=== PATIENT | female | born 1940 | race Caucasian/White ===

== ENCOUNTER 2016-05-28 10:39 | Inpatient (IN) | payer OTHER ==
[~2016-05-28] VITALS: Ht 167.6 cm; Wt 97.6 kg
[~2016-05-28 10:39] MED LIST: ALBU1AER9 INH; FERR325T51 PO; FRS/40 PO; INSUINJ14 SC; INSUINJ4 SQ; SPIR50TA3 PO; TRAV0.00 OPB
[2016-05-28 11:27] LABS: BASO % 0.1 %; BASO ABS # 0.02 K/uL (0-0.2); COMPLETE YES; EOS % 0.4 %; HEMATOCRIT 34.3 % (37-47); IG% 0.2 %; LYMPH % 8.1 %; LYMPH ABS # 1.37 K/uL (1.2-3.4); MEAN CELL VOLUME 90.5 fL (80-100); MEAN CORPUSCULAR HEMOGLOBIN 29.6 pg (25-34); MEAN CORPUSCULAR HGB CONC 32.7 g/dl (32-36); MEAN PLATELET VOLUME 9.2 fL (7.4-10.4); NEUT % 81.2 %; PLATELET COUNT 445 K/uL (130-400); RED BLOOD COUNT 3.79 M/uL (4.2-5.4); WHITE BLOOD COUNT 16.92 K/uL (4.8-10.8)
[2016-05-28 11:36] LABS: BUN/CREATININE RATIO 14.5 (10-20); CALCIUM 8.9 mg/dl (8.5-10.1); CREATININE 1.2 mg/dl (0.60-1.20); POTASSIUM 3.8 mmol/L (3.5-5.1)
[2016-05-28 11:37] LABS: PROTHROMBIN TIME (PATIENT) 10.7 SECONDS (9.0-12.0)
[2016-05-28] MEDS ORDERED: NVLG SQ (11:39)
[2016-05-28] MEDS ORDERED: ALBU18002 INH (11:39)
[2016-05-28] MEDS ORDERED: FURO80TA63 PO (11:39)
[2016-05-28 11:41] LABS: ALB/GLOB RATIO 0.6 (0.9-2); CKMB/CK RATIO 3.3 (0-3.0)
--- NOTE | 2016-05-28 11:43 | DIAGNOSTIC IMAGING REPORT ---
CHEST ONE VIEW PORTABLE CLINICAL HISTORY: EVALUATE RESPIRATORY DISTRESS. DYSPNEA COMPARISON STUDY: 12/19/2014 FINDINGS: Congestive heart failure. Left pleural effusion. Right hemidiaphragm is smooth. IMPRESSION: Congestive heart failure. Left pleural effusion. Electronically signed by: Steve Caicedo M.D. 05/28/2016 11:42 AM Dictated Date/Time: 05/28/2016 11:42 AM
[2016-05-28] MEDS ORDERED: METHYLPREDNISOLONE 125 MG VIAL IV STA (11:49)
[2016-05-28] MEDS ORDERED: ALBUT/IPRATROP 3MG/0.5MG NEB 3 ML VIAL INH STA (11:49)
[2016-05-28] MEDS ORDERED: LEVAQUIN 750MG / 150ML D5W IV STA (12:45)
[2016-05-28] MEDS ORDERED: PIPERACILLIN/TAZOBACTAM 4.5 GM/100ML D5W IV STA (12:45)
[2016-05-28] MEDS ORDERED: SODIUM CHLORIDE 0.9% 1000ML 1,000 ML IV STA (12:45)
[2016-05-28] MEDS ORDERED: SODIUM CHLORIDE 0.9% 500ML 500 ML IV STA (12:45)
[2016-05-28] MEDS ORDERED: ACETAMINOPHEN 325 MG TAB PO PRN (14:00)
[2016-05-28] MEDS ORDERED: ONDANSETRON INJ 2 MG/ML 2 ML VIAL IV PRN (14:00)
[2016-05-28] MEDS ORDERED: LACT10SO30 PO (14:08)
[2016-05-28] MEDS ORDERED: FRRS300 PO (14:08)
[2016-05-28] MEDS ORDERED: OPTIRAY 320 IV PRN (14:15)
[2016-05-28] MEDS ORDERED: PRED10TA PO (14:17)
[2016-05-28] MEDS ORDERED: GLUCOSE 40% GEL 15 GM TUBE PO PRN (14:30)
[2016-05-28] MEDS ORDERED: LACTULOSE SYRUP 20 GM/30 ML UDC PO SCH (14:30)
[2016-05-28] MEDS ORDERED: DEXTROSE 50% 50 ML SYR IV PRN (14:30)
[2016-05-28] MEDS ORDERED: GLUCAGON FOR INJ 1 MG VIAL SQ PRN (14:30)
[2016-05-28] MEDS ORDERED: GLUCOSE 10 TABS/TUBE PO PRN (14:30)
[2016-05-28 15:27] LABS: URINE APPEARANCE CLEAR (CLEAR); URINE BILIRUBIN NEG (NEG); URINE COLOR DK YELLOW; URINE EPITHELIAL CELL AUTO >30 /lpf (0-5); URINE NITRITE NEG (NEG); URINE PH 5.5 (4.5-7.5); URINE SPECIFIC GRAVITY 1.019 (1.000-1.030); UROBILINOGEN NEG (NEG)
[2016-05-28 15:29] LABS: MANUAL MICROSCOPIC REQUIRED? NO; REVIEW REQ? YES
[2016-05-28] MEDS ORDERED: LACTULOSE 30 GM PO SCH ×2 (15:30)
[2016-05-28] MEDS ORDERED: RASPBERRY PO SCH ×2 (15:30)
--- NOTE | 2016-05-28 15:34 | History and Physical ---
History & Physical Date & Time of Service: May 28, 2016 at 14:57 Chief Complaint: Shortness of Breath Primary Care Physician: Yann Gutierrez D.O. History of Present Illness 75 year old female who presents to the ER with shortness of breath. Patient reports her symptoms have been going on for the past 1 1/2 months however have gotten acutely worse over the past 1-2 weeks. Patient was seen by her PCP [address] was place on prednisone. She reports no improvement in her symptoms. She was seen in the clinic today and sent to the ER for further evaluation. Patient reports she initially was only short of breath with exertion however eventually became short of breath at rest and had difficulty speaking. She notes increasing abdominal distention and lower extremity edema. She stopped taking her Lasix 2 weeks ago because she was too short of breath to get to the bathroom. Patient also notes constipation. She is to take Lactulose for GRAHAM however reports she has not taken it in a while because she does not like the taste. She has been taking Dulcolax and miralax however it has not helped. She notes diarrhea the past two days. She denies BRPBR or dark tarry stools. She reports mild nausea but denies abdominal pain and vomiting. Patient and her note mild confusion over the past couple of weeks. No episodes of chest pain. She denies lightheadedness, dizziness, diaphoresis, or syncopal events. No fever or chills. She denies any urinary symptoms. In the ER, patient was hypoxic on room air at 74%. CXR is showing CHF and left pleural effusion. WBC 16K, lactic acid 2.4. She was given Zosyn, Levaquin, solumedrol, neb, and IVF. Past Medical/Surgical History Medical Problems: (1) Bladder cancer Status: Chronic (2) Cirrhosis of liver Permanent Comment: NAFLD Status: Chronic (3) CKD (chronic kidney disease), stage III Status: Chronic (4) COPD (chronic obstructive pulmonary disease) Status: Resolved (5) Depression Status: Chronic (6) Diabetes mellitus type 2 Status: Chronic (7) Diastolic CHF Status: Chronic (8) Dyslipidemia Status: Chronic (9) GERD (gastroesophageal reflux disease) Status: Chronic (10) GI bleed Status: Resolved (11) History of adenomatous polyp of colon Status: Chronic (12) History of bladder cancer Status: Chronic (13) History of endometrial cancer Status: Chronic (14) Hypothyroidism Status: Chronic (15) Iron deficiency anemia Status: Chronic (16) NSTEMI (non-ST elevated myocardial infarction) Permanent Comment: in the setting of acute illness, no EKG or echo findings of ACS Status: Chronic (17) Paroxysmal a-fib Status: Chronic (18) Portal hypertension Permanent Comment: esophageal varices Status: Chronic (19) Portal vein thrombosis Status: Chronic Surgical Problems: (1) Status post excision bladder tumor Permanent Comment: 2012 Status: Chronic (2) Status post hysterectomy Permanent Comment: endometrial carcinoma Status: Chronic Family History FH: ovarian cancer MOTHER Social History Smoking Status: Former Smoker Alcohol Use: none Marital Status: Immunizations History of Influenza Vaccine: Yes Influenza Vaccine Date: Feb 09, 2016 History of Tetanus Vaccine?: Yes Tetanus Immunization Date: August 31, 2006 History of Pneumococcal: Yes Pneumococcal Date: Feb 24, 2016 History of Hepatitis B Vaccine: Yes Hepatitis Immunization Date: Mar 30, 2008 Multi-Drug Resistant Organisms History of MDRO: No Allergies Coded Allergies: Iron Dextran (Verified Allergy, Severe, IRON INFUSIONS - COULDN'T BREATH - THROAT CLOSING, 05/28/16) Dobutamine (Verified Allergy, Intermediate, DIFFICULTY SWALLOWING, 05/28/16 ) Home Medications Scheduled Aspirin (Aspirin EC Low Dose), 81 MG PO 3XWK Atorvastatin (Lipitor), 80 MG PO QPM Furosemide (Lasix), 80 MG PO DAILY Insulin Aspart (Novolog), 30 UNITS SQ AC Insulin Glargine (Lantus), 45 UNITS SC BID Levothyroxine Sodium (Levothyroxine Sodium), 1 TAB PO QAM Metoprolol Succ (Toprol Xl) (Toprol-Xl), 25 MG PO BID Prednisone Tab (Prednisone), 20 MG PO UD Rifaximin (Xifaxan), 550 MG PO BID Spironolactone (Aldactone), 50 MG PO QAM Travoprost (Travatan Z), 1 DROPS OPB HS Venlafaxine Hcl (Effexor), 100 MG PO QAM Scheduled PRN Albuterol Sulfate (Proair Respiclick), 1-2 PUFFS INH Q4 PRN for Shortness of Breath Review of Systems 10 point review of systems was completed with the pertinent positives and negatives noted per the HPI Physical Exam Vital Signs Date Time Temp Pulse Resp B/P Pulse Ox O2 Delivery O2 Flow Rate FiO2 05/28/16 14:09 78 20 100 05/28/16 13:39 78 16 100 05/28/16 13:09 80 25 100 05/28/16 12:39 83 17 99 05/28/16 12:09 77 19 99 05/28/16 12:00 74 20 184/68 100 4.0 05/28/16 11:39 82 19 100 05/28/16 11:13 74 Room Air 05/28/16 11:13 74 Room Air 05/28/16 11:13 96 Nasal Cannula 4.0 05/28/16 11:11 80 05/28/16 11:09 82 26 100 05/28/16 10:52 184/68 05/28/16 10:43 36.3 84 16 154/78 93 Room Air General Appearance: + mild distress (mild conversational dyspnea noted) Head: normocephalic Eyes: normal inspection ENT: hearing grossly normal Neck: supple, no JVD Respiratory/Chest: + decreased breath sounds, + pertinent finding (mild conversational dyspnea) Cardiovascular: regular rate, rhythm, + pertinent finding (+1 pitting edema BLLE) Abdomen/GI: normal bowel sounds, non tender, + distended (firm) Extremities/Musculoskelatal: normal inspection, no calf tenderness Neurologic/Psych: no motor/sensory deficits, alert, normal mood/affect, oriented x 3 Skin: + pertinent finding (chronic venous changes and redness to BLLE) Diagnostics Laboratory Results Results Past 24 Hours Test 05/28/16 11:00 05/28/16 11:10 05/28/16 11:25 05/28/16 12:10 Range/Units White Blood Count 16.92 4.8-10.8 K/uL Red Blood Count 3.79 4.2-5.4 M/uL Hemoglobin 11.2 12.0-16.0 g/dL Hematocrit 34.3 37-47 % Mean Corpuscular Volume 90.5 80-100 fL Mean Corpuscular Hemoglobin 29.6 25-34 pg Mean Corpuscular Hemoglobin Concent 32.7 32-36 g/dl Platelet Count 445 130-400 K/uL Mean Platelet Volume 9.2 7.4-10.4 fL Neutrophils (%) (Auto) 81.2 % Lymphocytes (%) (Auto) 8.1 % Monocytes (%) (Auto) 10.0 % Eosinophils (%) (Auto) 0.4 % Basophils (%) (Auto) 0.1 % Neutrophils # (Auto) 13.73 1.4-6.5 K/uL Lymphocytes # (Auto) 1.37 1.2-3.4 K/uL Monocytes # (Auto) 1.70 0.11-0.59 K/uL Eosinophils # (Auto) 0.07 0-0.5 K/uL Basophils # (Auto) 0.02 0-0.2 K/uL RDW Standard Deviation 50.0 36.4-46.3 fL RDW Coefficient of Variation 15.0 11.5-14.5 % Immature Granulocyte % (Auto) 0.2 % Immature Granulocyte # (Auto) 0.03 0.00-0.02 K/uL Prothrombin Time 10.7 9.0-12.0 SECONDS Prothromb Time International Ratio 1.0 0.9-1.1 Activated Partial Thromboplast Time 26.6 21.0-31.0 SECONDS Partial Thromboplastin Ratio 1.0 Sodium Level 143 136-145 mmol/L Potassium Level 3.8 3.5-5.1 mmol/L Chloride Level 106 98-107 mmol/L Carbon Dioxide Level 26 21-32 mmol/L Anion Gap 11.0 3-11 mmol/L Blood Urea Nitrogen 17 7-18 mg/dl Creatinine 1.20 0.60-1.20 mg/dl Est Creatinine Clear Calc Drug Dose 51.1 ml/min Estimated GFR () 51.9 Estimated GFR (Non- 44.8 BUN/Creatinine Ratio 14.5 10-20 Random Glucose 169 70-99 mg/dl Calcium Level 8.9 8.5-10.1 mg/dl Total Bilirubin 0.7 0.2-1 mg/dl Aspartate Amino Transf (AST/SGOT) 29 15-37 U/L Alanine Aminotransferase (ALT/SGPT) 36 12-78 U/L Alkaline Phosphatase 173 45-117 U/L Total Creatine Kinase 172 26-192 U/L Creatine Kinase MB 5.6 0.5-3.6 ng/ml Creatine Kinase MB Ratio 3.3 0-3.0 Troponin I 0.037 0-0.045 ng/ml Pro-B-Type Natriuretic Peptide 314 0-900 pg/ml Total Protein 7.7 6.4-8.2 gm/dl Albumin 3.0 3.4-5.0 gm/dl Globulin 4.7 2.5-4.0 gm/dl Albumin/Globulin Ratio 0.6 0.9-2 Lactic Acid Level 2.4 0.4-2.0 mmol/L Influenza Type A Antigen Neg for Influ A NEG Influenza Type B Antigen Neg for Influ B NEG Ammonia 37.0 11-32 umol/L Test 05/28/16 14:04 Range/Units Microbiology Results 05/28/16 Blood Culture, Received Pending 05/28/16 Blood Culture, Received Pending Diagnostic Radiology CXR IMPRESSION: Congestive heart failure. Left pleural effusion. Impression Assessment and Plan ACUTE HYPOXIC RESPIRATORY FAILURE DUE TO VOLUME OVERLOAD IN THE SETTING OF GRAHAM / DIASTOLIC CHF / MILD COPD EXACERBATION - admit to tele - patient presenting with increasing shortness of breath x 1 1/2 months; 74% on room air in ED, currently on 4L - CXR showing CHF and left pleural effusion - patient has history of left pleural effusion s/p thoracentesis several years ago - was felt to be reactionary from GRAHAM - also noted patient self stopped her Lasix 2 weeks ago - check ABG - echo 02/2014 - EF > 70%, no mention of diastolic dysfunction - will update echo - WBC 16K, lactic acid 2.4 - leukocytosis likely due to recent steroid use, lactic acidemia likely due to hypoxia; no signs of pneumonia on CXR - will get CT chest to evaluate further and r/o PE, may need US to quantify effusion; s/p Levaquin and Zosyn in ED, will hold on further antibiotics at this time; recheck lactic acid - will start Lasix 40mg IV BID, continue home dose Spironolactone - daily weights, I/O, low Na+ diet - check CT abd due to distention and evaluate for ascites - EGD 04/2015 - grade I varices, mild portal gastropathy - started on steroid taper by PCP - may have mild COPD exacerbation; for now, will continue PO steroids and start nebs MILD HEPATIC ENCEPHALOPATHY - has had mild confusion for the past couple of weeks, ammonia level noted to be 34 - patient reports self stopping her Lactulose - will resume at 30gm BID - GI consult DIARRHEA - ? overflow diarrhea from constipation - check stool studies - further recommendations after CT abd DM - hgb a1c 9.9 02/2016 - continue Novolog/Lantus PAROXYSMAL AFIB - currently in NSR - rate controlled on beta moises, will continue - not anticoagulated due to anemia/GI bleeding DVT PROPHYLAXIS - SCDs due to hx varices, anemia, GI bleeding CODE STATUS - Patient is a full code as per my discussion with her. DISPO - In my clinical judgment this beneficiary meets acute admission criteria, established by [facility], that includes being hospitalized through two midnights. Agree with above h and p.75f presents with worsening sob since about a month. Has some cough. Philipp fevers. Recently started on steroids by pcp for copd flare.Stopped Lasix as patient says she doesn't wanted to go to bathroom frequently. Stopped lactulose as it doesn't taste good.Was hypoxic on room air. Currently saturating fine on nasal canula. p/e Ge not in distress obese Rs cta b/l no wheezing mid bibasilar crackles Abd soft bs sluggish distended non tender [employer] non focal Ext pedal edema +2 a/p SOB Acute resp failure volume overload from Cirrhosis and not taking Lasix Pleural effusion Acute diastolic chf CT chest no PE chest US 15ooml on left side Ct abd/pelvis-moderate ascites empiric Rocephin follow for SBP on paracentesis GI consulted pulmonary consult for pleural effusion started on iv lasix home Aldactone follow labs Elevated lactic acid mostly from hypoxia will f/u elevated ammonia on rifaximin not taking lactulose as it doesn't taste good pharmacy mixing lactulose in raspberry juice VTE Prophylaxis VTE Risk Assessment Done? Y/N: Yes Risk Level: Moderate
--- NOTE | 2016-05-28 15:37 | DIAGNOSTIC IMAGING REPORT ---
CHEST CTA for PULMONARY ARTERIES CT DOSE: 2150.41 mGy.cm HISTORY: Chest pain dyspnea TECHNIQUE: Transaxial acquisition with multi axial reformatted images COMPARISON STUDY: 2011 FINDINGS: Relatively large left pleural effusion. Left lower lobe atelectasis. Mild cardiomegaly. Underlying component potentially mild congestive failure. No evidence of pulmonary embolus. IMPRESSION: 1. No evidence for pulmonary embolus. 2. Left pleural effusion with left lower lobe atelectasis. 3. Underlying mild congestive failure. 4. Several indeterminate mediastinal and/or hilar nodes measuring to 11 mm Electronically signed by: Steve Caicedo M.D. 05/28/2016 3:36 PM Dictated Date/Time: 05/28/2016 3:32 PM
[2016-05-28 15:38] VITALS: BP 145/79; PULSE 87; TEMP 36.3; O2SAT 94
[2016-05-28 15:41] LABS: URINE PATH CASTS 0-3 GRANULAR CASTS /lpf (0)
--- NOTE | 2016-05-28 15:43 | DIAGNOSTIC IMAGING REPORT ---
ABDOMEN AND PELVIS CT WITH IV CONTRAST CT DOSE: HISTORY: Pain abdominal distention TECHNIQUE: Multiaxial CT images of the abdomen and pelvis were performed following the use of intravenous contrast. COMPARISON STUDY: 12/20/2014 FINDINGS: Mild body wall anasarca. Hepatic cirrhosis. Several small hepatic cysts unchanged from the prior exam. Several gallstones in the region of the gallbladder neck also unchanged. Several splenic infarcts as well as splenic cortical scarring are present. This is similar compared to the prior study. Mild abdominal ascites. Nonobstructive bowel pattern. Several reactive mesenteric nodes. Moderate periaortic adenopathy slightly progressive from the prior exam. These measure to 1.4 cm. Bowel pattern overall is nonobstructive. Moderate low pelvic ascites. Rodas catheter within a collapsed bladder. No evidence for colonic distention. IMPRESSION: 1. Hepatic cirrhosis. 2. Cortical scarring and lobulation of the spleen similar to the prior study. 3. Mild/moderate abdominal as well as pelvic ascites. 4. Mild body wall anasarca. 5. Mild periaortic and mesenteric adenopathy somewhat progressive from the prior study. Electronically signed by: Steve Caicedo M.D. 05/28/2016 3:42 PM Dictated Date/Time: 05/28/2016 3:38 PM
[2016-05-28 16:00] VITALS: BP 145/79; PULSE 87; TEMP 36.3; O2SAT 94; BMI 37.4
[2016-05-28] MEDS ORDERED: ALBUT/IPRATROP 3MG/0.5MG NEB 3 ML VIAL INH PRN (16:15)
[2016-05-28] MEDS ORDERED: PHARMACY GLYCEMIC MGMT CONSULT SCH (16:19)
[2016-05-28 16:22] LABS: ARTERIAL BLD GAS O2 SATURATION 96.8 % (90-95); ARTERIAL BLOOD GAS BASE EXCESS -1.5 mEq/L (-9-1.8); ARTERIAL BLOOD GAS HCO3 25 mmol/L (19-24); ARTERIAL BLOOD GAS PO2 104 mm/Hg (80-95); ARTERIAL BLOOD GAS pH 7.31 (7.35-7.45)
[2016-05-28 16:25] LABS: ALLEN TEST POS (POS); O2 ADMINISTRATION 4L
--- NOTE | 2016-05-28 17:43 | DIAGNOSTIC IMAGING REPORT ---
Chest ultrasound EFFUSION-CHEST/MEDIASTINUM CLINICAL HISTORY: left pleural effusion TECHNIQUE: Real-time ultrasound COMPARISON STUDY: CT study same date FINDINGS: Small right effusion. Estimated volume 55 cc. Left effusion estimated at 1500 cc. This was marked IMPRESSION: Left pleural effusion estimated at 1500 cc. This was marked for potential later thoracentesis. Small right effusion Electronically signed by: Steve Caicedo M.D. 05/28/2016 5:41 PM Dictated Date/Time: 05/28/2016 5:40 PM
--- NOTE | 2016-05-28 17:44 | DIAGNOSTIC IMAGING REPORT ---
Limited abdominal ultrasound ASCITES-ABDOMEN LIMITED CLINICAL HISTORY: ascites ascites TECHNIQUE: Real-time ultrasound COMPARISON STUDY: CT same date FINDINGS: Mild/moderate ascites within the abdomen as well as pelvis. IMPRESSION: Mild ascites Electronically signed by: Steve Caicedo M.D. 05/28/2016 5:43 PM Dictated Date/Time: 05/28/2016 5:42 PM
[2016-05-28] MEDS: INSULIN ASPART 100 UNITS/ML 3 ML PEN SC SCH ×2 (17:48→21:47)
[2016-05-28] MEDS: CEFTRIAXONE SOD INJ 2,000 MG in DEXTROSE 5% 50ML 50 ML IV SCH (17:50)
[2016-05-28] MEDS: FUROSEMIDE INJ 40 MG in SYRINGE 0 ML IV SCH ×2 (17:50→23:18)
[2016-05-28] MEDS: LACTULOSE 20 GM PO SCH ×4 (17:51→21:44)
[2016-05-28] MEDS: [UNRECOGNIZED DRUG - OTHER] PO SCH ×4 (17:51→21:44)
[2016-05-28 19:51] VITALS: BP 154/69; PULSE 88; TEMP 36.5; O2SAT 98
--- NOTE | 2016-05-28 20:02 | EMERGENCY ROOM VISIT NOTE ---
History Report prepared by Alexandriaibricha: Janette Monahan Under the Supervision of: Dr. Alan Hou M.D. First contact with patient: 11:10 Chief Complaint: SHORTNESS OF BREATH Stated Complaint: SOB Nursing Triage Summary: Patient present with a several day history of increasing SOB, with3 lb weight gain over the weekend. CXR on Sunday showed pleural effusion. Lungs diminshed in all lung willis. negative chest p ain, cough, fever, chills. patient awake and oriented. hypoxic on room air and anxious with 74 room air saturation. Patient reports relief with oxygen and saturations incresed to 96% on 4 lpm via NC. Patient also reports high ammonia level with a recent blood draw. History of Present Illness The patient is a 75 year old female who presents to the Emergency Room with complaints of worsening shortness of breath for the past few days. She saw her PCP, Dr. Gutierrez with [facility], 3 days ago, and had a chest X-Ray and lab work. The X-Ray showed pleural effusion and her Ammonia was found to be elevated , so Dr. Gutierrez's office called her this morning and referred her to the ED. Her O2 was 74% on room air on arrival to the ED. Oxygen has provided relief and she is up to 96% on 4 liters. The patient admits to a history of COPD and notes her Albuterol Nebulizer usually provides good relief, but since the beginning of April, she has experienced a cough and shortness of breath that seem to be worsening. She also admits to a recent 3 pound weight gain and some diarrhea over the past few days. The patient denies LOC, headache, fevers, chills, diaphoresis, visual changes, neck pain, chest pain, nausea, vomiting, abdominal pain, back pain, melena, hematochezia, urinary symptoms, numbness, weakness, lymphadenopathy, rash, or other complaints. Source of History: patient Onset: past few days [employer] Position: chest Timing: worsening Modifying Factors (Relieving): oxygen Associated Symptoms: + diarrhea Review of Systems See HPI for pertinent positives and negatives. A total of ten systems were reviewed and were otherwise negative. Past Medical & Surgical Medical Problems: (1) Bladder cancer (2) Cirrhosis of liver (3) CKD (chronic kidney disease), stage III (4) COPD (chronic obstructive pulmonary disease) (5) Depression (6) Diabetes mellitus type 2 (7) Diastolic CHF (8) Dyslipidemia (9) GERD (gastroesophageal reflux disease) (10) GI bleed (11) History of adenomatous polyp of colon (12) History of bladder cancer (13) History of endometrial cancer (14) Hypothyroidism (15) Iron deficiency anemia (16) NSTEMI (non-ST elevated myocardial infarction) (17) Paroxysmal a-fib (18) Portal hypertension (19) Portal vein thrombosis Surgical Problems: (1) Status post excision bladder tumor (2) Status post hysterectomy Family History Cancer Social History Smoking Status: Former Smoker Alcohol Use: none Drug Use: none Marital Status: Housing Status: lives with family Occupation Status: retired Current/Historical Medications Scheduled Aspirin (Aspirin EC Low Dose), 81 MG PO 3XWK Atorvastatin (Lipitor), 80 MG PO QPM Furosemide (Lasix), 80 MG PO DAILY Insulin Aspart (Novolog), 30 UNITS SQ AC Insulin Glargine (Lantus), 45 UNITS SC BID Levothyroxine Sodium (Levothyroxine Sodium), 1 TAB PO QAM Metoprolol Succ (Toprol Xl) (Toprol-Xl), 25 MG PO BID Prednisone Tab (Prednisone), 20 MG PO UD Rifaximin (Xifaxan), 550 MG PO BID Spironolactone (Aldactone), 50 MG PO QAM Travoprost (Travatan Z), 1 DROPS OPB HS Venlafaxine Hcl (Effexor), 100 MG PO QAM Scheduled PRN Albuterol Sulfate (Proair Respiclick), 1-2 PUFFS INH Q4 PRN for Shortness of Breath Allergies Coded Allergies: Iron Dextran (Verified Allergy, Severe, IRON INFUSIONS - COULDN'T BREATH - THROAT CLOSING, 05/28/16) Dobutamine (Verified Allergy, Intermediate, DIFFICULTY SWALLOWING, 05/28/16 ) Physical Exam Vital Signs Date Time Temp Pulse Resp B/P Pulse Ox O2 Delivery O2 Flow Rate FiO2 05/28/16 13:39 78 16 100 05/28/16 13:09 80 25 100 05/28/16 12:39 83 17 99 05/28/16 12:09 77 19 99 05/28/16 12:00 74 20 184/68 100 4.0 05/28/16 11:39 82 19 100 05/28/16 11:13 74 Room Air 2/19/17 11:13 74 Room Air 05/28/16 11:13 96 Nasal Cannula 4.0 05/28/16 11:11 80 05/28/16 11:09 82 26 100 05/28/16 10:52 184/68 05/28/16 10:43 36.3 84 16 154/78 93 Room Air Physical Exam GENERAL: Awake, alert, well-appearing, in no distress HENT: Normocephalic, atraumatic. Oropharynx unremarkable. EYES: Normal conjunctiva. Sclera non-icteric. NECK: Supple. No nuchal rigidity. FROM. No JVD. RESPIRATORY: Clear to auscultation. CARDIAC: Regular rate, normal rhythm. Extremities warm and well perfused. Pulses equal. ABDOMEN: Soft, non-distended. No tenderness to palpation. No rebound or guarding. No masses. RECTAL: Deferred. MUSCULOSKELETAL: Chest examination reveals no tenderness. The back is symmetrical on inspection without obvious abnormality. There is no CVA tenderness to palpation. No joint edema. LOWER EXTREMITIES: Calves are equal size bilaterally and non-tender. +1 edema in lower extremities. Chronic venous discoloration. NEURO: Mildly confused sensorium. No sensory, focal or motor deficits noted. SKIN: No rash or jaundice noted. Medical Decision & Procedures ER Provider Diagnostic Interpretation: This X-Ray was reviewed and interpreted by myself and the radiologist. CHEST ONE VIEW PORTABLE CLINICAL HISTORY: EVALUATE RESPIRATORY DISTRESS. DYSPNEA COMPARISON STUDY: 12/19/2014 FINDINGS: Congestive heart failure. Left pleural effusion. Right hemidiaphragm is smooth. IMPRESSION: Congestive heart failure. Left pleural effusion. Electronically signed by: Steve Caicedo M.D. 05/28/2016 11:42 AM Laboratory Results 05/28/16 11:00 Red Blood Count 3.79, Mean Corpuscular Volume 90.5, Mean Corpuscular Hemoglobin 29.6, Mean Corpuscular Hemoglobin Concent 32.7, Mean Platelet Volume 9.2, Neutrophils (%) (Auto) 81.2, Lymphocytes (%) (Auto) 8.1, Monocytes (%) (Auto) 10.0, Eosinophils (%) (Auto) 0.4, Basophils (%) (Auto) 0.1, Neutrophils # (Auto ) 13.73, Lymphocytes # (Auto) 1.37, Monocytes # (Auto) 1.70, Eosinophils # (Auto ) 0.07, Basophils # (Auto) 0.02 05/28/16 11:00 Test 05/28/16 00:00 05/28/16 11:00 05/28/16 11:25 05/28/16 12:10 Urine Color DK YELLOW Urine Appearance CLEAR (CLEAR) Urine pH 5.5 (4.5-7.5) Urine Specific [place] 1.019 (1.000-1.030) Urine Protein 3+ (NEG) Urine Glucose (UA) NEG (NEG) Urine Ketones NEG (NEG) Urine Occult Blood 2+ (NEG) Urine Nitrite NEG (NEG) Urine Bilirubin NEG (NEG) Urine Urobilinogen NEG (NEG) Urine Leukocyte Esterase NEG (NEG) Urine WBC (Auto) 1-5 /hpf (0-5) Urine RBC (Auto) 5-10 /hpf (0-4) Urine Hyaline Casts (Auto) 1-5 /lpf (0-5) Urine Epithelial Cells (Auto) >30 /lpf (0-5) Urine Bacteria (Auto) NEG (NEG) Urine Renal Epithelial Cells /lpf (0-5) Urine Pathogenic Casts 0-3 GRANULAR CASTS /lpf (0) White Blood Count 16.92 K/uL (4.8-10.8) Red Blood Count 3.79 M/uL (4.2-5.4) Hemoglobin 11.2 g/dL (12.0-16.0) Hematocrit 34.3 % (37-47) Mean Corpuscular Volume 90.5 fL (80-100) Mean Corpuscular Hemoglobin 29.6 pg (25-34) Mean Corpuscular Hemoglobin Concent 32.7 g/dl (32-36) Platelet Count 445 K/uL (130-400) Mean Platelet Volume 9.2 fL (7.4-10.4) Neutrophils (%) (Auto) 81.2 % Lymphocytes (%) (Auto) 8.1 % Monocytes (%) (Auto) 10.0 % Eosinophils (%) (Auto) 0.4 % Basophils (%) (Auto) 0.1 % Neutrophils # (Auto) 13.73 K/uL (1.4-6.5) Lymphocytes # (Auto) 1.37 K/uL (1.2-3.4) Monocytes # (Auto) 1.70 K/uL (0.11-0.59) Eosinophils # (Auto) 0.07 K/uL (0-0.5) Basophils # (Auto) 0.02 K/uL (0-0.2) RDW Standard Deviation 50.0 fL (36.4-46.3) RDW Coefficient of Variation 15.0 % (11.5-14.5) Immature Granulocyte % (Auto) 0.2 % Immature Granulocyte # (Auto) 0.03 K/uL (0.00-0.02) Prothrombin Time 10.7 SECONDS (9.0-12.0) Prothromb Time International Ratio 1.0 (0.9-1.1) Activated Partial Thromboplast Time 26.6 SECONDS (21.0-31.0) Partial Thromboplastin Ratio 1.0 Anion Gap 11.0 mmol/L (3-11) Est Creatinine Clear Calc Drug Dose 51.1 ml/min Estimated GFR () 51.9 Estimated GFR (Non- 44.8 BUN/Creatinine Ratio 14.5 (10-20) Calcium Level 8.9 mg/dl (8.5-10.1) Total Bilirubin 0.7 mg/dl (0.2-1) Aspartate Amino Transf (AST/SGOT) 29 U/L (15-37) Alanine Aminotransferase (ALT/SGPT) 36 U/L (12-78) Alkaline Phosphatase 173 U/L (45-117) Total Creatine Kinase 172 U/L (26-192) Pro-B-Type Natriuretic Peptide 314 pg/ml (0-900) Total Protein 7.7 gm/dl (6.4-8.2) Albumin 3.0 gm/dl (3.4-5.0) Globulin 4.7 gm/dl (2.5-4.0) Albumin/Globulin Ratio 0.6 (0.9-2) Influenza Type A Antigen Neg for Influ A (NEG) Influenza Type B Antigen Neg for Influ B (NEG) Ammonia 37.0 umol/L (11-32) Laboratory results reviewed by me Medications Administered Medications (Trade) Dose Ordered Sig/Virgil Route Start Time Stop Time Status Last Admin Dose Admin Albuterol/ Ipratropium (Duoneb) 3 ml NOW STAT INH 05/28/16 11:49 05/28/16 11:51 DC 05/28/16 12:05 3 ML Methylprednisolone Sodium Succinate (Solu-Medrol IV) 125 mg NOW STAT IV 05/28/16 11:49 05/28/16 11:51 DC 05/28/16 12:05 125 MG Levofloxacin (Levaquin / D5W) 750 mg NOW STAT IV 05/28/16 12:45 05/28/16 12:47 DC 05/28/16 13:43 750 MG Piperacillin Sod/ Tazobactam Sod 4.5 gm 4.5 gm NOW STAT IV 05/28/16 12:45 05/28/16 12:47 DC 05/28/16 13:08 4.5 GM Sodium Chloride (Nss 500ml) 500 ml @ 999 mls/hr Q31M STAT IV 05/28/16 12:45 05/28/16 13:15 DC 05/28/16 13:08 999 MLS/HR ECG Indication: SOB/dyspnea Rate (beats per minute): 85 Rhythm: normal sinus Findings: RBBB, no acute ischemic change, no ectopy ED Course 1148: The patient was evaluated in room C10. A complete history and physical exam was performed. 1149: Solu-Medrol 125 mg IV, DuoNeb 3 ml INH. 1245: NSS 500 ml @ 999 mls/hr IV, NSS 1000 ml @ 125 mls/hr IV, Zosyn 4.5 gm IV, Levaquin 750 mg IV. 1254: I reevaluated the patient. She is resting comfortably. I discussed my plan for her to remain in the hospital for further evaluation and management and she verbalized complete understanding and agreement. 1305: I discussed the patients case with JULIO C Sanabria [facility] Hospitalist. The patient will be further evaluated. Medical Decision Triage Nursing notes reviewed. The patient's presentation and history were concerning for hypoxia, shortness of breath, confusion. Etiologies such as pneumonia, COPD, reactive airway disease, CHF, cardiac ischemia, pulmonary embolism, pneumothorax, musculoskeletal, infections, gastrointestinal, cirrhosis, hyperammonemia, as well as others were entertained. The patient was evaluated. She was feeling better with supplemental oxygen. She was given a DuoNeb. Chest x-ray shows a large pleural effusion and mild CHF. Her CBC revealed a significant leukocytosis and lactic acidosis was also present. Troponin and coags were unremarkable. Ammonia was slightly elevated. Because of the lactic acidosis and elevated white blood cell count the patient was given antibiotics due to concern for possible pneumonia obscured by the effusion. Consultation was made with internal medicine. The patient was evaluated in the Emergency Room for further treatment. The chart was completed utilizing [employer] Speech voice recognition software. Grammatical errors, random word insertions, pronoun errors, and incomplete sentences are an occasional consequence of this system due to software limitations, ambient noise, and hardware issues. Any formal questions or concerns about the content, text, or information contained within the body of this dictation should be directly addressed to the physician for clarification. Consults Time Called: 1304 Consulting Physician: JULIO C Sanabria [facility] Hospitalist Returned Call: 1305 I discussed the patients case [facility] The patient will be further evaluated. Impression Primary Impression: Hypoxia Additional Impressions: Altered mental status Pneumonia SIRS (systemic inflammatory response syndrome) Congestive heart failure Scribe Attestation The scribe's documentation has been prepared under my direction and personally reviewed by me in its entirety. I confirm that the note above accurately reflects all work, treatment, procedures, and medical decision making performed by me. Departure Information Dispostion Being Evaluated By Hospitalist Referrals Yann Gutierrez, D.OMac (PCP) Patient Instructions My [facility] Problem Qualifiers Additional Impressions: Congestive heart failure Congestive heart failure type: unspecified congestive heart failure type Congestive heart failure chronicity: acute Qualified Codes: I50.9 - Heart failure, unspecified
[2016-05-28 20:17] VITALS: PULSE 94; O2SAT 92
[2016-05-28] MEDS: ALBUT/IPRATROP 3MG/0.5MG NEB 3 ML VIAL INH SCH (20:17)
[2016-05-28] MEDS: ATORVASTATIN 40 MG TAB PO SCH (21:43)
[2016-05-28] MEDS: UNIT DOSE COMPOUND PO SCH (21:44)
[2016-05-28] MEDS: TRAVOPROST Z 0.004% OPH SOLN 2.5 ML BTL OPB SCH (21:44)
[2016-05-28] MEDS: RIFAXIMIN TAB 550 MG TAB PO SCH (21:45)
[2016-05-28] MEDS: METOPROLOL SUCC 25MG EXT REL TAB PO SCH (21:45)
[2016-05-28] MEDS: INSULIN GLARGINE SOLOSTAR 100 UNITS/ML 3 ML PEN SC SCH (21:48)
[2016-05-28 23:07] VITALS: BP 125/59; PULSE 94; TEMP 36.6; O2SAT 96
[2016-05-29] VITALS (13 sets, daily range): BP systolic 117–151; BP diastolic 53–69; PULSE 71–118; TEMP 36.3–36.9; O2SAT 93–99
[2016-05-29 06:18] LABS: HEMATOCRIT 31.1 % (37-47); MEAN CELL VOLUME 92.3 fL (80-100); MEAN CORPUSCULAR HEMOGLOBIN 28.8 pg (25-34); MEAN CORPUSCULAR HGB CONC 31.2 g/dl (32-36); MEAN PLATELET VOLUME 9.3 fL (7.4-10.4); PLATELET COUNT 384 K/uL (130-400); RED BLOOD COUNT 3.37 M/uL (4.2-5.4); WHITE BLOOD COUNT 12.42 K/uL (4.8-10.8)
[2016-05-29 07:03] LABS: BUN/CREATININE RATIO 14.8 (10-20); CALCIUM 8.5 mg/dl (8.5-10.1); CREATININE 1.6 mg/dl (0.60-1.20); POTASSIUM 4.2 mmol/L (3.5-5.1)
[2016-05-29] MEDS: ALBUT/IPRATROP 3MG/0.5MG NEB 3 ML VIAL INH SCH ×4 (07:33→20:18)
[2016-05-29] MEDS: RIFAXIMIN TAB 550 MG TAB PO SCH ×2 (08:20→20:44)
[2016-05-29] MEDS: METOPROLOL SUCC 25MG EXT REL TAB PO SCH ×2 (08:21→20:44)
[2016-05-29] MEDS: VENLAFAXINE HCL 50 MG TAB PO SCH (08:27)
[2016-05-29] MEDS: ASPIRIN 81 MG ECTAB PO SCH (08:28)
[2016-05-29] MEDS: LEVOTHYROXINE 112 MCG TAB PO SCH (08:28)
[2016-05-29] MEDS: FUROSEMIDE INJ 40 MG in SYRINGE 0 ML IV SCH ×2 (08:30→20:42)
[2016-05-29] MEDS: INSULIN ASPART 100 UNITS/ML 3 ML PEN SC SCH ×4 (08:52→20:45)
[2016-05-29] MEDS: INSULIN GLARGINE SOLOSTAR 100 UNITS/ML 3 ML PEN SC SCH ×2 (08:53→20:46)
[2016-05-29] MEDS: LACTULOSE 20 GM PO SCH ×4 (09:58→20:43)
[2016-05-29] MEDS: [UNRECOGNIZED DRUG - OTHER] PO SCH ×4 (09:58→20:43)
[2016-05-29] MEDS: UNIT DOSE COMPOUND PO SCH ×2 (09:58→20:43)
--- NOTE | 2016-05-29 10:24 | DIAGNOSTIC IMAGING REPORT ---
ULTRASOUND GUIDED DIAGNOSTIC PARACENTESIS CLINICAL HISTORY: Ascites. COMPARISON STUDY: CT of the abdomen and pelvis and abdominal ultrasound May 28, 2016. PROCEDURE: The risks, benefits, and alternatives to the procedure were discussed with the patient including the risk of bleeding, infection and injury to adjacent structures. The patient agreed to the procedure and informed written consent was obtained. Sonography of the abdomen and pelvis revealed a small amount of ascites. The amount of fluid was insufficient for a therapeutic paracentesis. Following real-time ultrasound localization, the skin of the right lower quadrant was prepped and draped. Following local anesthesia with Xylocaine, a 3.5 inch, 18-gauge spinal needle was directed into the peritoneal cavity. 100 cc of milky, cloudy ascites was aspirated. The fluid was sent to laboratory as ordered. The patient tolerated the procedure well and no immediate complications were evident. IMPRESSION: Ultrasound-guided diagnostic paracentesis with removal of 100 cc of milky, cloudy ascites. 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 The amount of fluid was insufficient for therapeutic paracentesis. Electronically signed by: Rao Mcgrath M.D. 05/29/2016 10:23 AM Dictated Date/Time: 05/29/2016 10:19 AM
[2016-05-29 12:28] LABS: PERIT FL WBC 123 /uL (0-300); PERITONEAL FLUID RBC < 3000 /uL
--- NOTE | 2016-05-29 13:16 | Gastrointestinal Consultation ---
Gastrointestinal Consultation Date of Consultation: May 29, 2016 History of Present Illness Patient is a 75 year old female with past medical history significant for GRAHAM cirrhosis, DMT2, anemia, afib, depression, hypothyroid, GERD, CKDIII, adenomatous polyps, bladder CA, CHF, hypoxia who was admitted for SOB and confusion. GI was consulted for elevated ammonia and confusion. She reports that she does not take her lactulose at home because she does not like the way it makes her feel. She notes that around Werner time she stopped taking this medication completely. She was starting to experience confusion and mental fogginess over the past few weeks, however, did not seek any medical attention for this. She denies any abdominal pain, black/bloody stools, diarrhea, constipation, vomitting. She reports that she has been experiencing worsening SOB. She reports she had a paracentesis this morning, but they were unable to get much fluid off. paracentesis: Ultrasound-guided diagnostic paracentesis with removal of 100 cc of milky, cloudy ascites. 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 The amount of fluid was insufficient for therapeutic paracentesis. Chest xr: Congestive heart failure. Left pleural effusion CT abd: Hepatic cirrhosis. Cortical scarring and lobulation of the spleen similar to the prior study. Mild/moderate abdominal as well as pelvic ascites. Mild body wall anasarca. Mild periaortic and mesenteric adenopathy somewhat progressive from the prior study. Past Medical/Surgical History Medical Problems: (1) Altered mental status Status: Acute (2) Congestive heart failure Status: Acute (3) Hypoxia Status: Acute (4) Pneumonia Status: Acute (5) SIRS (systemic inflammatory response syndrome) Status: Acute Family History FH: ovarian cancer MOTHER Social History Smoking Status: Former Smoker Alcohol Use: none Drug Use: none Marital Status: Housing Status: lives with family Occupation Status: retired Allergies Coded Allergies: Iron Dextran (Verified Allergy, Severe, IRON INFUSIONS - COULDN'T BREATH - THROAT CLOSING, 05/28/16) Dobutamine (Verified Allergy, Intermediate, DIFFICULTY SWALLOWING, 05/28/16 ) Current Medications Home Meds and Scripts Medications Dose Route/Sig Max Daily Dose Days Date Category Dose Instructions Aspirin EC Low Dose (Aspirin) 81 Mg Ectab 81 Mg PO 3XWK 05/28/16 Reported Prednisone 10 Mg Tab 20 Mg PO UD 05/28/16 Reported on taper - 40mg x 2 days, 20 mg x 5 days Lasix (Furosemide) 80 Mg Tab 80 Mg PO DAILY 05/28/16 Reported Proair Respiclick (Albuterol Sulfate) 108 Mcg/Act Aer 1-2 Puffs INH Q4 PRN 05/28/16 Reported Lantus (Insulin Glargine) 100 Unit/Ml Inj 45 Units SC BID 05/28/16 Reported Novolog (Insulin Aspart) 100 Units/Ml Inj 30 Units SQ AC 05/28/16 Reported Travatan Z (Travoprost) 0.004 % Deonte 1 Drops OPB HS 10/27/15 Reported Levothyroxine Sodium 112 Mcg Tab 1 Tab PO QAM 90 10/27/15 Reported Toprol-Xl (Metoprolol Succinate) 25 Mg Tabcr 25 Mg PO BID 10/27/15 Reported Lipitor (Atorvastatin Calcium) 80 Mg Tab 80 Mg PO QPM 10/27/15 Reported Aldactone (Spironolactone) 50 Mg Tab 50 Mg PO QAM 10/27/15 Reported Effexor (Venlafaxine Hcl) 100 Mg Tab 100 Mg PO QAM 10/27/15 Reported Xifaxan (Rifaximin) 550 Mg Tab 550 Mg PO BID 10/27/15 Reported Review of Systems Constitutional: No chills, No fever Respiratory: + shortness of breath Cardiac: No chest pain, No edema Abdomen: No GI bleeding, No constipation, No diarrhea, No nausea, No pain, No vomiting Skin: No itch, No rash Physical Exam Date Time Temp Pulse Resp B/P Pulse Ox O2 Delivery O2 Flow Rate FiO2 05/29/16 11:38 Nasal Cannula 4.0 05/29/16 11:38 36.8 88 20 143/69 98 4.0 05/29/16 11:15 98 18 99 Nasal Cannula 4.0 05/29/16 10:04 96 20 137/63 99 Nasal Cannula 4.0 05/29/16 07:43 36.9 90 18 121/53 97 Room Air 05/29/16 07:33 95 18 96 Nasal Cannula 4.0 05/29/16 07:30 Nasal Cannula 4.0 05/29/16 04:00 Nasal Cannula 4.0 05/29/16 03:45 36.7 93 18 117/54 95 Nasal Cannula 4.0 05/29/16 00:01 Nasal Cannula 4.0 05/28/16 23:07 36.6 94 18 125/59 96 Nasal Cannula 4.0 05/28/16 20:17 94 18 92 Nasal Cannula 4.0 05/28/16 20:00 Nasal Cannula 4.0 05/28/16 19:51 36.5 88 18 154/69 98 Nasal Cannula 4.0 05/28/16 16:00 36.3 87 18 145/79 94 Nasal Cannula 4.0 05/28/16 15:38 36.3 87 18 145/79 94 Nasal Cannula 4.0 05/28/16 15:00 84 20 130/88 98 05/28/16 14:09 78 20 100 05/28/16 13:39 78 16 100 05/28/16 13:09 80 25 100 General Appearance: + mild distress (patient is SOB during conversation) Eyes: PERRL, EOMI ENT: hearing grossly normal Neck: supple, trachea midline Respiratory/Chest: chest non-tender, no accessory muscle use, + respiratory distress (patient is SOB during conversation, stops talking for a few second to catch her breath), + decreased breath sounds Cardiovascular: regular rate, rhythm, no gallop, no JVD, no murmur Abdomen: normal bowel sounds, soft, no organomegaly, no pulsatile mass, + pertinent finding (no ascites on exam) Neurologic/Psych: alert, normal mood/affect, oriented x 3 Skin: normal color, no jaundice, warm/dry, no rash Laboratory Results Last 24 Hours Test 05/28/16 16:00 05/28/16 17:00 05/28/16 20:32 05/28/16 22:00 Arterial Blood pH 7.31 Arterial Blood Partial Pressure CO2 51 mmHg Arterial Blood Partial Pressure O2 104 mm/Hg Arterial Blood HCO3 25 mmol/L Arterial Blood Oxygen Saturation 96.8 % Arterial Blood Base Excess -1.5 mEq/L Arterial Blood Gas Delivery 4L Akin Test POS Lactic Acid Level 1.2 mmol/L Creatine Kinase MB 4.5 ng/ml Creatine Kinase MB Ratio Troponin I 0.041 ng/ml Bedside Glucose 187 mg/dl 288 mg/dl Test 05/28/16 22:03 05/29/16 00:00 05/29/16 05:59 05/29/16 07:34 Creatine Kinase MB 3.7 ng/ml Troponin I 0.037 ng/ml Peritoneal Fluid Color WHITE Peritoneal Fluid Appearance CLOUDY Peritoneal Fluid WBC 123 /uL Peritoneal Fluid RBC < 3000 /uL Peritoneal Fld Mononuclear WBCs (%) 69.2 % Peritoneal Fld Polynuclear WBCs (%) 30.8 % Peritoneal Fluid Total Protein 1.2 g/dl Peritoneal Fluid LDH 46 IU Peritoneal Fluid Glucose mg/dl White Blood Count 12.42 K/uL Red Blood Count 3.37 M/uL Hemoglobin 9.7 g/dL Hematocrit 31.1 % Mean Corpuscular Volume 92.3 fL Mean Corpuscular Hemoglobin 28.8 pg Mean Corpuscular Hemoglobin Concent 31.2 g/dl RDW Standard Deviation 51.5 fL RDW Coefficient of Variation 15.2 % Platelet Count 384 K/uL Mean Platelet Volume 9.3 fL Sodium Level 142 mmol/L Potassium Level 4.2 mmol/L Chloride Level 104 mmol/L Carbon Dioxide Level 27 mmol/L Anion Gap 11.0 mmol/L Blood Urea Nitrogen 24 mg/dl Creatinine 1.60 mg/dl Est Creatinine Clear Calc Drug Dose 38.3 ml/min Estimated GFR () 36.7 Estimated GFR (Non- 31.6 BUN/Creatinine Ratio 14.8 Random Glucose 254 mg/dl Calcium Level 8.5 mg/dl Total Bilirubin 0.4 mg/dl Direct Bilirubin 0.2 mg/dl Aspartate Amino Transf (AST/SGOT) 21 U/L Alanine Aminotransferase (ALT/SGPT) 30 U/L Alkaline Phosphatase 136 U/L Ammonia 54.0 umol/L Total Protein 6.8 gm/dl Albumin 2.6 gm/dl Bedside Glucose 254 mg/dl Test 05/29/16 11:10 Bedside Glucose 320 mg/dl Impression Patient is a 75 year old female with worsening SOB and confusion. At the time of admission, she was not taking her lactulose and her ammonia was elevated to 54. She was taking xifaxan 550 BID. Differentials include hepatic encephalopathy , hypoxia, infection etc. She is not taking lactulose and receiving breathing treatments, it is unclear the etiology of her confusion. Plan diet as tolerated Peritoneal WBC 123 - no SBP Lactulose 30 gm TID Xifaxan 550 mg BID continue other outpatient medications at prescribed doses Attg addendum: I interviewed and examined pt, reviewed chart and labs. Pt admit with confusion, SOB, found to be hypoxic with large left pleural effusion. Abd tab revealed chylous ascites. At present, she denies confusion, but has marked tremor and weakness. She is SOB, although this is improved. A/P: HE - Cont lactulsoe and xifaxan. She has ah/o fecal incontinence, which may make nursing home compliance with lactulose difficult, but will cont current dose for now. L pleural effusion - Hepatic hydrothorax? Would ask primary service to consider diagnostic tap - please send for LDH, albumin, cell count. Cont lasix , although her creatinine is increasing - will add albumin 25 gm BID, and resume outpt aldactone. Echo is pending. Will follow with you.
[2016-05-29] MEDS ORDERED: PERFLUTREN LIPID MICROSPHERE (DEFINITY) IV ONE (14:25)
--- NOTE | 2016-05-29 14:54 | Progress Note ---
Internal Med Progress Note Date of Service: May 29, 2016. Provider Documentation: SUBJECTIVE: Seen and examined at bedside. States her SOB is better. Reports intermittent palpitations. Denies any chest pain, cough. Had paracentesis today. Admits to not taking meds at home. Mental status seems to be improving. OBJECTIVE: Vital Signs-as noted below Physical Exam: General Appearance:Moderately built and nourished, no apparent distress Head: normocephalic, Atraumatic Eyes: normal inspection, EOMI, PERRLA, anicteric Neck: supple, Trachea midline Respiratory/Chest: Decreased breath sounds, CTA, No accessory muscle use Cardiovascular: S1, S2, NSR, No murmur Abdomen/GI:Soft, Non tender, distended, Bowel sounds present, paracentesis site in bandage Extremities/Musculoskelatal:normal inspection, 1+ B/L LE edema Neurologic/Psych:AAOX3, grossly no focal neurological deficits Skin: normal color, warm Lab data as noted below. ASSESSMENT & PLAN: ACUTE HYPOXIC RESPIRATORY FAILURE VOLUME OVERLOAD IN SETTING OF GRAHAM / DIASTOLIC CHF / MILD COPD EXACERBATION H/O MEDICATION NON COMPLIANCE: patient self stopped her Lasix 2 weeks ago Pt presented with increasing shortness of breath x 1 1/2 months; 74% on RA in ED CXR: CHF and left pleural effusion likely reactionary from GRAHAM Last ECHO:02/2014: EF > 70% Leukocytosis improving: on Steroid taper started by PCP for COPD exacerbation S/P Paracentesis today: No signs of SBP Continue IV diuretics and spironolactone: Monitor Cr levels Low sodium diet Needs thoracentesis for left pleural effusion: R/O Hepatic hydrothorax Pulm consulted Continue steroid taper Nebs PRN/Oxygen support per protocol Empirically on IV ceftriaxone, Follow up cultures Continue Albumin per GI Echo:pending HEPATIC ENCEPHALOPATHY/GRAHAM Pt not take lactulose, Rifaximin secondary to fecal incontinence Ammonia levels elevated at 54 Confusion improving Continue lactulose, Rifaximin GI following DIARRHEA ? overflow diarrhea from constipation Follow up stool studies CT ABD: as below (Mild periaortic and mesenteric adenopathy somewhat progressive from the prior study) DM II Uncontrolled Last A1c: 9.9 02/2016 Continue ISS, Lantus HYPOTHYROIDISM: Continue Levothyroxine CKD III: Monitor renal function On IV diuretics Avoid nephrotoxic agents PAROXYSMAL AFIB currently in NSR rate controlled Continue beta moises Not on anticoagulated due to anemia/GI bleeding DVT PROPHYLAXIS SCDs due to hx varices, anemia, GI bleeding CODE STATUS Full code DISPOSITION: Continue to monitor:Needs further work up PROCEDURES: CT ABD: 1. Hepatic cirrhosis. 2. Cortical scarring and lobulation of the spleen similar to the prior study. 3. Mild/moderate abdominal as well as pelvic ascites. 4. Mild body wall anasarca. 5. Mild periaortic and mesenteric adenopathy somewhat progressive from the prior study. Vital Signs: Date Time Temp Pulse Resp B/P Pulse Ox O2 Delivery O2 Flow Rate FiO2 05/29/16 19:13 36.7 112 18 142/57 95 Nasal Cannula 3.0 05/29/16 18:24 96 Nasal Cannula 4.0 05/29/16 16:16 86 16 99 Nasal Cannula 4.0 05/29/16 15:52 Nasal Cannula 4.0 05/29/16 15:20 36.8 71 20 127/65 94 Nasal Cannula 4.0 05/29/16 11:38 Nasal Cannula 4.0 05/29/16 11:38 36.8 88 20 143/69 98 4.0 05/29/16 11:15 98 18 99 Nasal Cannula 4.0 05/29/16 10:04 96 20 137/63 99 Nasal Cannula 4.0 05/29/16 07:43 36.9 90 18 121/53 97 Room Air 05/29/16 07:33 95 18 96 Nasal Cannula 4.0 05/29/16 07:30 Nasal Cannula 4.0 05/29/16 04:00 Nasal Cannula 4.0 05/29/16 03:45 36.7 93 18 117/54 95 Nasal Cannula 4.0 05/29/16 00:01 Nasal Cannula 4.0 05/28/16 23:07 36.6 94 18 125/59 96 Nasal Cannula 4.0 05/28/16 20:17 94 18 92 Nasal Cannula 4.0 05/28/16 20:00 Nasal Cannula 4.0 05/28/16 19:51 36.5 88 18 154/69 98 Nasal Cannula 4.0 Lab Results: Results Past 24 Hours Test 05/28/16 20:32 05/28/16 22:00 05/28/16 22:03 05/29/16 00:00 Range/Units Bedside Glucose 288 70-90 mg/dl Creatine Kinase MB Ratio 0-3.0 Creatine Kinase MB 3.7 0.5-3.6 ng/ml Troponin I 0.037 0-0.045 ng/ml Peritoneal Fluid Color WHITE Peritoneal Fluid Appearance CLOUDY Peritoneal Fluid WBC 123 0-300 /uL Peritoneal Fluid RBC < 3000 /uL Peritoneal Fld Mononuclear WBCs (%) 69.2 % Peritoneal Fld Polynuclear WBCs (%) 30.8 % Peritoneal Fluid Total Protein 1.2 g/dl Peritoneal Fluid LDH 46 IU Peritoneal Fluid Glucose mg/dl Test 05/29/16 05:59 05/29/16 07:34 05/29/16 11:10 05/29/16 16:31 Range/Units White Blood Count 12.42 4.8-10.8 K/uL Red Blood Count 3.37 4.2-5.4 M/uL Hemoglobin 9.7 12.0-16.0 g/dL Hematocrit 31.1 37-47 % Mean Corpuscular Volume 92.3 80-100 fL Mean Corpuscular Hemoglobin 28.8 25-34 pg Mean Corpuscular Hemoglobin Concent 31.2 32-36 g/dl RDW Standard Deviation 51.5 36.4-46.3 fL RDW Coefficient of Variation 15.2 11.5-14.5 % Platelet Count 384 130-400 K/uL Mean Platelet Volume 9.3 7.4-10.4 fL Sodium Level 142 136-145 mmol/L Potassium Level 4.2 3.5-5.1 mmol/L Chloride Level 104 98-107 mmol/L Carbon Dioxide Level 27 21-32 mmol/L Anion Gap 11.0 3-11 mmol/L Blood Urea Nitrogen 24 7-18 mg/dl Creatinine 1.60 0.60-1.20 mg/dl Est Creatinine Clear Calc Drug Dose 38.3 ml/min Estimated GFR () 36.7 Estimated GFR (Non- 31.6 BUN/Creatinine Ratio 14.8 10-20 Random Glucose 254 70-99 mg/dl Calcium Level 8.5 8.5-10.1 mg/dl Total Bilirubin 0.4 0.2-1 mg/dl Direct Bilirubin 0.2 0-0.2 mg/dl Aspartate Amino Transf (AST/SGOT) 21 15-37 U/L Alanine Aminotransferase (ALT/SGPT) 30 12-78 U/L Alkaline Phosphatase 136 45-117 U/L Ammonia 54.0 11-32 umol/L Total Protein 6.8 6.4-8.2 gm/dl Albumin 2.6 3.4-5.0 gm/dl Bedside Glucose 254 320 351 70-90 mg/dl Microbiology Results 05/29/16 Gram Stain, Received Pending 05/29/16 Bacterial Culture, Received Pending
[2016-05-29] MEDS ORDERED: SPIRONOLACTONE 25 MG TAB PO ONE (15:45)
--- NOTE | 2016-05-29 16:28 | Pharmacy Progress Note ---
Glycemic Control Intl Consult Date of Service May 29, 2016. Scope Glycemic Pharmacist consulted by JULIO C Suárez on 05/28 for glycemic control and to write orders per [facility] inpatient glycemic control protocol Objective Weight (Kilograms): 103.400 Accuchecks BSG (last 24hrs): Test 05/28/16 17:00 05/28/16 20:32 05/29/16 05:59 05/29/16 07:34 Bedside Glucose 187 mg/dl (70-90) 288 mg/dl (70-90) 254 mg/dl (70-90) Random Glucose 254 mg/dl (70-99) Test 05/29/16 11:10 Bedside Glucose 320 mg/dl (70-90) Laboratory Data (last 24hrs) Test 05/29/16 05:59 Anion Gap 11.0 mmol/L BUN/Creatinine Ratio 14.8 Blood Urea Nitrogen 24 mg/dl Creatinine 1.60 mg/dl Potassium Level 4.2 mmol/L Sodium Level 142 mmol/L White Blood Count 12.42 K/uL HbA1c 05/30/16 pending Recent Pertinent Medications Outpatient Anti-diabetic Regimen: * Lantus 45 units bid, Novolog 30 units ac, 20 units with snack * A1c = pending 05/30/16 The patient is currently receiving: * Basal insulin: Lantus 45 units every 12 hours * Correctional Insulin: Novolog Correction per scale ACHS Goal Range: Low 120 mg/dL - High 160 mg/dL Correction Factor: 40 mg/dL/unit * Prandial insulin: Per carb ratio of 1 unit per 14 grams CHO consumed * Oral Agents: none Risk Factors for Insulin Resistance: * Steroids: Solumedrol 125 mg yesterday, starting prednisone taper with 40 mg today * Infection: on Rocephin * Pressors: no * IVF: no * Recent Surgery: no, had paracentesis today * Diet: type 2 diabetic AHA low sodium * Mechanical Ventilation: no Assessment & Plan ASSESSMENT: * ADA & AACE recommend a goal blood sugar range 140-180 mg/dl for the majority of critically ill & non-critically ill patients. However, more stringent targets may be selected in individual cases. * 75 yo type 2 diabetic. A1c pending to assess glycemic control over past 3 months. BSG's high due to steroid effect. Will tighten correction and carb ratio , and reassess in am. PLAN FOR INPATIENT GLYCEMIC CONTROL: * Continuing Lantus 45 units SQ BID * Changing correction factor to 15 mg/dl/unit * Changing carb ratio to 1 unit per 5 grams CHO consumed * Continuing goal range Low 120 mg/dL - High 160 mg/dL * Please note that the plan above was derived based on current level of insulin resistance and hospital stress. These recommendations are appropriate for inpatient admission only. Plan of care upon discharge will need to be reassessed to avoid potential outpatient hypo/hyperglycemia. Thank you.
[2016-05-29] MEDS: CEFTRIAXONE SOD INJ 2,000 MG in DEXTROSE 5% 50ML 50 ML IV SCH (16:37)
[2016-05-29] MEDS ORDERED: INSULIN REGULAR 10 UNITS in SYRINGE 9.9 ML IV SCH (17:30)
[2016-05-29] MEDS: TRAVOPROST Z 0.004% OPH SOLN 2.5 ML BTL OPB SCH (20:43)
[2016-05-29] MEDS: ATORVASTATIN 40 MG TAB PO SCH (20:44)
[2016-05-29] MEDS: ALBUMIN HUMAN 25% 12.5 GM/50 ML VIAL IV SCH (21:05)
[2016-05-29] MEDS ORDERED: LEVALBUTEROL/IPRATROPIUM NEB INH PRN (21:30)
[2016-05-29] MEDS ORDERED: LEVALBUTEROL 1.25MG/0.5ML NEB INH PRN (21:45)
[2016-05-29] MEDS ORDERED: IPRATROPIUM BROMIDE NEB SOLN 0.02% 2.5 ML VIAL INH PRN (21:45)
[2016-05-29] MEDS ORDERED: METOPROLOL TARTRATE 25 MG TAB PO STA (23:01)
[2016-05-29 23:02] LABS: BUN/CREATININE RATIO 15.9 (10-20); CREATININE 2.2 mg/dl (0.60-1.20); MAGNESIUM 2.1 mg/dl (1.8-2.4); POTASSIUM 3.9 mmol/L (3.5-5.1)
[2016-05-29] MEDS ORDERED: POTASSIUM CHLORIDE 10 MEQ TABCR PO STA (23:07)
[2016-05-29 23:37] LABS: HEMATOCRIT 28.9 % (37-47)
[2016-05-29 23:54] LABS: ARTERIAL BLD GAS O2 SATURATION 95.4 % (90-95); ARTERIAL BLOOD GAS BASE EXCESS 3.6 mEq/L (-9-1.8); ARTERIAL BLOOD GAS HCO3 29 mmol/L (19-24); ARTERIAL BLOOD GAS PO2 88 mm/Hg (80-95); ARTERIAL BLOOD GAS pH 7.38 (7.35-7.45)
[2016-05-29 23:55] LABS: ALLEN TEST POS (POS); O2 ADMINISTRATION 1.5L
[2016-05-30] VITALS (20 sets, daily range): BP systolic 132–162; BP diastolic 60–77; PULSE 72–110; TEMP 36.4–36.9; O2SAT 90–100; Ht 167.6 cm; Wt 97.6 kg
[2016-05-30] MEDS: INSULIN ASPART 100 UNITS/ML 3 ML PEN SC SCH ×6 (00:09→20:55)
--- NOTE | 2016-05-30 01:23 | Progress Note ---
Internal Med Progress Note Date of Service: May 30, 2016. Provider Documentation: Made aware by RN of PSVT episode and tachycardia. px denies cp, sob worsening serum crea on labwork AP Tachycardia poss 2 to ARF, overdiuresis baseline UA, ff PRP albumin x 1 dose now hold diuretics for now Vital Signs: Date Time Temp Pulse Resp B/P Pulse Ox O2 Delivery O2 Flow Rate FiO2 05/30/16 07:36 72 18 95 Nasal Cannula 2.0 05/30/16 07:18 36.4 91 18 153/72 95 Nasal Cannula 2.0 05/30/16 05:34 36.7 93 18 136/73 95 05/30/16 04:10 78 18 95 Nasal Cannula 2.0 05/30/16 04:10 Nasal Cannula 3.0 05/30/16 03:55 36.7 95 18 132/61 97 Nasal Cannula 3.0 05/30/16 02:45 36.7 96 18 132/65 95 Nasal Cannula 3.0 05/30/16 00:15 Nasal Cannula 3.0 05/29/16 22:50 36.7 118 18 148/64 95 Nasal Cannula 3.0 05/29/16 21:44 36.3 114 18 151/62 93 2.0 05/29/16 20:18 82 16 95 Nasal Cannula 2.0 05/29/16 20:10 Nasal Cannula 3.0 05/29/16 19:13 36.7 112 18 142/57 95 Nasal Cannula 3.0 05/29/16 18:24 96 Nasal Cannula 4.0 05/29/16 16:16 86 16 99 Nasal Cannula 4.0 05/29/16 15:52 Nasal Cannula 4.0 05/29/16 15:20 36.8 71 20 127/65 94 Nasal Cannula 4.0 05/29/16 11:38 Nasal Cannula 4.0 05/29/16 11:38 36.8 88 20 143/69 98 4.0 05/29/16 11:15 98 18 99 Nasal Cannula 4.0 05/29/16 10:04 96 20 137/63 99 Nasal Cannula 4.0 Lab Results: Results Past 24 Hours Test 05/29/16 11:10 05/29/16 16:31 05/29/16 20:33 05/29/16 22:30 Range/Units Bedside Glucose 320 351 312 70-90 mg/dl Sodium Level 138 136-145 mmol/L Potassium Level 3.9 3.5-5.1 mmol/L Chloride Level 101 98-107 mmol/L Carbon Dioxide Level 26 21-32 mmol/L Anion Gap 11.0 3-11 mmol/L Blood Urea Nitrogen 35 7-18 mg/dl Creatinine 2.20 0.60-1.20 mg/dl Est Creatinine Clear Calc Drug Dose 27.7 ml/min Estimated GFR () 25.0 Estimated GFR (Non- 21.5 BUN/Creatinine Ratio 15.9 10-20 Random Glucose 264 70-99 mg/dl Calcium Level 9.0 8.5-10.1 mg/dl Magnesium Level 2.1 1.8-2.4 mg/dl Test 05/29/16 23:30 05/30/16 00:03 05/30/16 05:33 05/30/16 05:56 Range/Units Hemoglobin 9.3 9.4 12.0-16.0 g/dL Hematocrit 28.9 29.6 37-47 % Arterial Blood pH 7.38 7.35-7.45 Arterial Blood Partial Pressure CO2 51 35-46 mmHg Arterial Blood Partial Pressure O2 88 80-95 mm/Hg Arterial Blood HCO3 29 19-24 mmol/L Arterial Blood Oxygen Saturation 95.4 90-95 % Arterial Blood Base Excess 3.6 -9-1.8 mEq/L Arterial Blood Gas Delivery 1.5L Akin Test POS POS Bedside Glucose 253 164 70-90 mg/dl White Blood Count 12.52 4.8-10.8 K/uL Red Blood Count 3.23 4.2-5.4 M/uL Mean Corpuscular Volume 91.6 80-100 fL Mean Corpuscular Hemoglobin 29.1 25-34 pg Mean Corpuscular Hemoglobin Concent 31.8 32-36 g/dl Platelet Count 358 130-400 K/uL Mean Platelet Volume 9.1 7.4-10.4 fL Neutrophils (%) (Auto) 74.3 % Lymphocytes (%) (Auto) 9.2 % Monocytes (%) (Auto) 16.0 % Eosinophils (%) (Auto) 0.2 % Basophils (%) (Auto) 0.1 % Neutrophils # (Auto) 9.32 1.4-6.5 K/uL Lymphocytes # (Auto) 1.15 1.2-3.4 K/uL Monocytes # (Auto) 2.00 0.11-0.59 K/uL Eosinophils # (Auto) 0.02 0-0.5 K/uL Basophils # (Auto) 0.01 0-0.2 K/uL RDW Standard Deviation 51.4 36.4-46.3 fL RDW Coefficient of Variation 15.1 11.5-14.5 % Immature Granulocyte % (Auto) 0.2 % Immature Granulocyte # (Auto) 0.02 0.00-0.02 K/uL Sodium Level 141 136-145 mmol/L Potassium Level 4.3 3.5-5.1 mmol/L Chloride Level 104 98-107 mmol/L Carbon Dioxide Level 30 21-32 mmol/L Anion Gap 7.0 3-11 mmol/L Blood Urea Nitrogen 34 7-18 mg/dl Creatinine 1.90 0.60-1.20 mg/dl Est Creatinine Clear Calc Drug Dose 32.3 ml/min Estimated GFR () 29.8 Estimated GFR (Non- 25.7 BUN/Creatinine Ratio 18.0 10-20 Random Glucose 144 70-99 mg/dl Estimated Average Glucose 177 mg/dl Hemoglobin A1c 7.8 4.5-5.6 % Calcium Level 8.8 8.5-10.1 mg/dl Ammonia 62.0 11-32 umol/L Test 05/30/16 07:39 Range/Units Bedside Glucose 138 70-90 mg/dl
[2016-05-30] MEDS ORDERED: ALBUMIN HUMAN 25% 12.5 GM/50 ML VIAL IV STA (01:25)
[2016-05-30] MEDS ORDERED: INSULIN ASPART 100 UNITS/ML 3 ML PEN SC SCH (02:00)
[2016-05-30] MEDS: LEVALBUTEROL 1.25MG/0.5ML NEB INH SCH ×4 (03:00→20:15)
[2016-05-30] MEDS ORDERED: LEVALBUTEROL/IPRATROPIUM NEB INH SCH (03:00)
[2016-05-30] MEDS: IPRATROPIUM BROMIDE NEB SOLN 0.02% 2.5 ML VIAL INH SCH ×4 (03:00→20:14)
[2016-05-30 06:11] LABS: BASO % 0.1 %; BASO ABS # 0.01 K/uL (0-0.2); COMPLETE YES; EOS % 0.2 %; HEMATOCRIT 29.6 % (37-47); IG% 0.2 %; LYMPH % 9.2 %; LYMPH ABS # 1.15 K/uL (1.2-3.4); MEAN CELL VOLUME 91.6 fL (80-100); MEAN CORPUSCULAR HEMOGLOBIN 29.1 pg (25-34); MEAN CORPUSCULAR HGB CONC 31.8 g/dl (32-36); MEAN PLATELET VOLUME 9.1 fL (7.4-10.4); NEUT % 74.3 %; PLATELET COUNT 358 K/uL (130-400); RED BLOOD COUNT 3.23 M/uL (4.2-5.4); WHITE BLOOD COUNT 12.52 K/uL (4.8-10.8)
[2016-05-30 06:21] LABS: ESTIMATED AVERAGE GLUCOSE 177 mg/dl; HA1C FLAG Normal (Normal)
[2016-05-30 06:43] LABS: CALCIUM 8.8 mg/dl (8.5-10.1); CREATININE 1.9 mg/dl (0.60-1.20); POTASSIUM 4.3 mmol/L (3.5-5.1)
[2016-05-30] MEDS ORDERED: SPIRONOLACTONE 25 MG TAB PO SCH (09:00)
[2016-05-30] MEDS: VENLAFAXINE HCL 50 MG TAB PO SCH (09:17)
[2016-05-30] MEDS: LEVOTHYROXINE 112 MCG TAB PO SCH (09:17)
[2016-05-30] MEDS: RIFAXIMIN TAB 550 MG TAB PO SCH ×2 (09:17→20:57)
[2016-05-30] MEDS: [UNRECOGNIZED DRUG - OTHER] PO SCH ×2 (09:18)
[2016-05-30] MEDS: LACTULOSE 20 GM PO SCH ×2 (09:18)
[2016-05-30] MEDS: UNIT DOSE COMPOUND PO SCH (09:19)
[2016-05-30] MEDS: METOPROLOL SUCC 25MG EXT REL TAB PO SCH ×2 (09:19→20:57)
--- NOTE | 2016-05-30 09:21 | Gastroenterology Progress Note ---
Progress Note Date of Service: May 30, 2016 Subjective Pt evaluation today including: conversation w/ patient, physical exam, lab review Mrs. Coy was seen and examined this morning. She reports that she is feeling much better. She is OOB in chair and appears to be less SOB. Reports feeling bloated and constipated despite taking lactulose and Xifaxan. Review of Systems Constitutional: No chills, No fever Respiratory: + shortness of breath, No cough Cardiac: No chest pain Abdomen: + constipation, No GI bleeding, No diarrhea, No nausea, No pain, No vomiting Medications Current Inpatient Medications Medications (Trade) Dose Ordered Sig/Virgil Route Start Time Stop Time Status Last Admin Dose Admin Acetaminophen (Tylenol Tab) 650 mg Q4H PRN PO 05/28/16 14:00 06/27/16 13:59 Ondansetron HCl (Zofran Inj) 4 mg Q6H PRN IV 05/28/16 14:00 06/27/16 13:59 Ioversol (Optiray 320) 100 ml UD PRN IV 05/28/16 14:15 06/01/16 14:14 Insulin Aspart (novoLOG ASPART) SLIDING SCALE If C... ACHS SC 05/28/16 16:00 06/27/16 15:59 05/29/16 20:45 16 UNITS Glucose (Glucose 40% Gel) 15-30 GRAMS 15 GRAMS... UD PRN PO 05/28/16 14:30 06/27/16 14:29 Glucose (Glucose Chew Tab) 4-8 Tablets 4 Tabl... UD PRN PO 05/28/16 14:30 06/27/16 14:29 Dextrose (Dextrose 50% 50ML Syringe) 25-50ML OF 50% DW IV FOR... UD PRN IV 05/28/16 14:30 06/27/16 14:29 Glucagon (Glucagon Inj) 1 mg UD PRN SQ 05/28/16 14:30 06/27/16 14:29 Miscellaneous Information (Consult Glycemic Management Pharmacy) 1 ea UD N/A 05/28/16 16:19 06/27/16 16:18 Aspirin (Ecotrin Tab) 81 mg MoWeFr@0900 PO 05/29/16 09:00 06/28/16 08:59 05/29/16 08:28 81 MG Atorvastatin Calcium (Lipitor Tab) 80 mg QPM PO 05/28/16 21:00 06/27/16 20:59 05/29/16 20:44 80 MG Insulin Glargine (Lantus Solostar Pen) 45 unit BID SC 05/28/16 21:00 06/27/16 20:59 05/29/16 20:46 45 UNIT Levothyroxine Sodium (Synthroid Tab) 112 mcg QAM PO 05/29/16 09:00 06/28/16 08:59 05/29/16 08:28 112 MCG Metoprolol Succinate (Toprol Xl Tab) 25 mg BID PO 05/28/16 21:00 06/27/16 20:59 05/29/16 20:44 25 MG Prednisone (PredniSONE TAB) 40 mg Taper DAILY PO 05/29/16 09:00 06/05/16 08:59 05/29/16 08:27 40 MG Rifaximin (Xifaxan Tab) 550 mg BID PO 05/28/16 21:00 06/27/16 20:59 05/29/16 20:44 550 MG Travoprost (Travatan Z) 1 drops HS OPB 05/28/16 21:00 06/27/16 20:59 05/29/16 20:43 1 DROPS Venlafaxine HCl 100 mg 100 mg QAM PO 05/29/16 09:00 06/28/16 08:59 05/29/16 08:27 100 MG Furosemide/Syringe 4 ml @ 4 mls/min BID IV 05/28/16 16:00 06/27/16 15:59 Future Hold 05/29/16 20:42 4 MLS/MIN Lactulose/ Raspberry (Chronulac Syrup/ Raspberry Syrup) BID PO 05/28/16 15:30 06/27/16 15:29 05/29/16 20:43 20 GM Miscellaneous 1 ea 1 ea BID PO 05/28/16 21:00 06/27/16 20:59 05/29/16 20:43 1 EA Ceftriaxone Sodium/Dextrose (Rocephin Inj/D5 50ml) 70 ml @ 100 mls/hr Q24H IV 05/28/16 17:00 06/07/16 16:59 05/29/16 16:37 100 MLS/HR Albumin Human (Albumin 25%) 25 gm BID IV 05/29/16 21:00 05/31/16 06:00 05/29/16 21:05 25 GM Ipratropium Cypress (Atrovent 0.02% 0.5MG/2.5ML Neb) 0.5 mg Q6R INH 05/30/16 03:00 06/29/16 02:59 05/30/16 07:36 0.5 MG Levalbuterol (Xopenex 1.25MG/ 0.5ML Neb) 1.25 mg Q6R INH 05/30/16 03:00 06/29/16 02:59 05/30/16 07:36 1.25 MG Ipratropium Cypress (Atrovent 0.02% 0.5MG/2.5ML Neb) 0.5 mg Q4H PRN INH 05/29/16 21:45 06/28/16 21:44 Levalbuterol (Xopenex 1.25MG/ 0.5ML Neb) 1.25 mg Q4H PRN INH 05/29/16 21:45 06/28/16 21:44 Objective Vital Signs Date Time Temp Pulse Resp B/P Pulse Ox O2 Delivery O2 Flow Rate FiO2 05/30/16 07:36 72 18 95 Nasal Cannula 2.0 05/30/16 07:18 36.4 91 18 153/72 95 Nasal Cannula 2.0 05/30/16 05:34 36.7 93 18 136/73 95 05/30/16 04:10 78 18 95 Nasal Cannula 2.0 05/30/16 04:10 Nasal Cannula 3.0 05/30/16 03:55 36.7 95 18 132/61 97 Nasal Cannula 3.0 05/30/16 02:45 36.7 96 18 132/65 95 Nasal Cannula 3.0 05/30/16 00:15 Nasal Cannula 3.0 05/29/16 22:50 36.7 118 18 148/64 95 Nasal Cannula 3.0 05/29/16 21:44 36.3 114 18 151/62 93 2.0 05/29/16 20:18 82 16 95 Nasal Cannula 2.0 05/29/16 20:10 Nasal Cannula 3.0 05/29/16 19:13 36.7 112 18 142/57 95 Nasal Cannula 3.0 05/29/16 18:24 96 Nasal Cannula 4.0 05/29/16 16:16 86 16 99 Nasal Cannula 4.0 05/29/16 15:52 Nasal Cannula 4.0 05/29/16 15:20 36.8 71 20 127/65 94 Nasal Cannula 4.0 05/29/16 11:38 Nasal Cannula 4.0 05/29/16 11:38 36.8 88 20 143/69 98 4.0 05/29/16 11:15 98 18 99 Nasal Cannula 4.0 05/29/16 10:04 96 20 137/63 99 Nasal Cannula 4.0 Physical Exam General Appearance: + mild distress (she is slightly SOB with conversation) Eyes: PERRL ENT: hearing grossly normal Neck: supple, trachea midline Respiratory/Chest: lungs clear, no respiratory distress, no accessory muscle use, + decreased breath sounds, + pertinent finding (on O2) Cardiovascular: regular rate, rhythm, no gallop, no JVD, no murmur Abdomen: normal bowel sounds, non tender, soft, no organomegaly, no pulsatile mass Neurologic/Psych: alert, normal mood/affect, oriented x 3 Skin: normal color, warm/dry, no rash Laboratory Results Last 24 Hours Test 05/29/16 11:10 05/29/16 16:31 05/29/16 20:33 05/29/16 22:30 Bedside Glucose 320 mg/dl 351 mg/dl 312 mg/dl Sodium Level 138 mmol/L Potassium Level 3.9 mmol/L Chloride Level 101 mmol/L Carbon Dioxide Level 26 mmol/L Anion Gap 11.0 mmol/L Blood Urea Nitrogen 35 mg/dl Creatinine 2.20 mg/dl Est Creatinine Clear Calc Drug Dose 27.7 ml/min Estimated GFR () 25.0 Estimated GFR (Non- 21.5 BUN/Creatinine Ratio 15.9 Random Glucose 264 mg/dl Calcium Level 9.0 mg/dl Magnesium Level 2.1 mg/dl Test 05/29/16 23:30 05/30/16 00:03 05/30/16 05:33 05/30/16 05:56 Hemoglobin 9.3 g/dL 9.4 g/dL Hematocrit 28.9 % 29.6 % Arterial Blood pH 7.38 Arterial Blood Partial Pressure CO2 51 mmHg Arterial Blood Partial Pressure O2 88 mm/Hg Arterial Blood HCO3 29 mmol/L Arterial Blood Oxygen Saturation 95.4 % Arterial Blood Base Excess 3.6 mEq/L Arterial Blood Gas Delivery 1.5L Akin Test POS Bedside Glucose 253 mg/dl 164 mg/dl White Blood Count 12.52 K/uL Red Blood Count 3.23 M/uL Mean Corpuscular Volume 91.6 fL Mean Corpuscular Hemoglobin 29.1 pg Mean Corpuscular Hemoglobin Concent 31.8 g/dl Platelet Count 358 K/uL Mean Platelet Volume 9.1 fL Neutrophils (%) (Auto) 74.3 % Lymphocytes (%) (Auto) 9.2 % Monocytes (%) (Auto) 16.0 % Eosinophils (%) (Auto) 0.2 % Basophils (%) (Auto) 0.1 % Neutrophils # (Auto) 9.32 K/uL Lymphocytes # (Auto) 1.15 K/uL Monocytes # (Auto) 2.00 K/uL Eosinophils # (Auto) 0.02 K/uL Basophils # (Auto) 0.01 K/uL RDW Standard Deviation 51.4 fL RDW Coefficient of Variation 15.1 % Immature Granulocyte % (Auto) 0.2 % Immature Granulocyte # (Auto) 0.02 K/uL Sodium Level 141 mmol/L Potassium Level 4.3 mmol/L Chloride Level 104 mmol/L Carbon Dioxide Level 30 mmol/L Anion Gap 7.0 mmol/L Blood Urea Nitrogen 34 mg/dl Creatinine 1.90 mg/dl Est Creatinine Clear Calc Drug Dose 32.3 ml/min Estimated GFR () 29.8 Estimated GFR (Non- 25.7 BUN/Creatinine Ratio 18.0 Random Glucose 144 mg/dl Estimated Average Glucose 177 mg/dl Hemoglobin A1c 7.8 % Calcium Level 8.8 mg/dl Ammonia 62.0 umol/L Test 05/30/16 07:39 Bedside Glucose 138 mg/dl Assessment and Plan Patient is a 75 year old female with worsening SOB and confusion. At the time of admission, she was not taking her lactulose and her ammonia was elevated to 54. She was taking xifaxan 550 BID. Differentials include hepatic encephalopathy , hypoxia, infection etc. She is not taking lactulose and receiving breathing treatments, it is unclear the etiology of her confusion. KUB for evaluation of constipation/overflow diarrhea Will have to cover for SBP as paracentesis yesterday was after ABX were started - continue 5 day course of Rocephin 2 g daily lactulose 30 gm TID as tolerated xifaxan 550 BID diet as tolerated albumin 25 gm BID lasix/aldactone at outpatient doses OK Hepatic hydrothorax? Would ask primary service to consider diagnostic tap - please send for LDH, albumin, cell count. Attg addendum: I interviewed and examined pt, reviewed chart and labs. Pt appears much better today. - HE - she is clinically resolved. Uriah current dose of lactulose well. No need to follow ammonia levels - Chylous ascites, ? 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 She did not have SBP on her tap, although this was done after she had received abx. If empiric coverage for sbp is desired, can switch to cipro to complete 5 day course. - Renal insuff - her creat has increased during this admission, presumably due to dye load from mult CT studies and then from diuretic dose. I've held her diuretics, and given her albumin; will check urine na. If remains elevated tomorrow, please consult renal service. - Hepatic hydrothorax - her SOB is stable; we are waiting normalization of creat to resume diuretics. Would ask pulm service to consider dx paracentesis, and send fluid for cell count, protein, albumin, and LDH. 05/30/16 @ 1500 worsening kidney function - will hold diuretics, albumin BID and check urine sodium
[2016-05-30] MEDS: INSULIN GLARGINE SOLOSTAR 100 UNITS/ML 3 ML PEN SC SCH ×2 (09:25→20:56)
[2016-05-30] MEDS: ALBUMIN HUMAN 25% 12.5 GM/50 ML VIAL IV SCH ×4 (09:35→21:03)
--- NOTE | 2016-05-30 09:38 | Pulmonary Consultation ---
History General Date of Service: May 30, 2016. Stated Complaint: SOB HPI The patient is a 75 year old female who presents to [facility] with complaints of SOB. The patient's primary care provider is Yann Gutierrez D.O.. 75 year old female whom presented to [facility] with progressive dyspnea for the past 6 weeks. She has a PmHx significant for cirrhosis with portal HTN/thrombosis. She was placed on prednisone by her PCP 3 days prior to her presentation with no notable improvement in her symptoms. She was then seen in clinic and sent to the ED for further evaluation. In the ED her SaO2 was 74% on ra and increased to 100 on 4Lnc. Over this time she has noted increased abdominal distention and lower extremity edema. She d/c her Lasix 2 weeks ago because she was too dyspnic to get to the bathroom. She has also experienced diahrea over the previous 2-3 days. At the time of our interview the patient notes dramatic improvement in her shortness of breath after the paracentesis. Denies: Chest pain, dyspnea at rest, productive cough, fever, chills, Work-Up: WBC: 16K AB.38/51/88/19 (1.5L) BUN/Cr: 34/1.90 Ammonia: 62.0 Paracentesis Fluid: WBC: 123 [place]: 69% Poly: 31% T pro: 1.2 LDH: 46 Gram Stain: Pending Serum: T pro: 7.76.8 Albumin: 3.0 SAAG: Blood: No growth Urine: <1,000 CFU Treatment: 1)ED: Levaquin and Zosyn in the ED 2)Atrovent/Xopenx Neb 3)Albumin 4)ASA 5)Synthroid 6)Prednisone 40mg QD 7)Rifaximin 8)Ceftriaxone 9)Lactulose 10)Paracentesis 05/29/16 a 0900 Radiology: Thoracic US: 05/28/16: 1.5L left pleural effusion CT ABD: jeffery-hepatic fluid with left pleural effusion CTA PE: Left pleural effusion appears loculated, CXR: left sided pleural effusion CXR 02/20/14 left sided pleural effusion Historian: patient, EMS Review of Systems Constitutional: reports: weakness Eyes: reports: no symptoms ENT: reports: no symptoms Cardiovascular: reports: no symptoms Respiratory: reports: PERALES Gastrointestinal: reports: diarrhea Genitourinary - Female: reports: no symptoms Musculoskeletal: reports: myalgias Integumentary: reports: no symptoms Neurologic: reports: no symptoms Psychiatric: reports: no symptoms Endocrine: no symptoms Hematologic / Lymphatic: no symptoms Allergic / Immunologic: no symptoms Past Medical History Past Medical History: 1)GRAHAM Cirrhosis 2)Portal HTN 3)Portal Vein thrombosis 4)TIA 5)Anemia 6)CAD/NSTEMI 7)P-Afib 8)Diastolic HF (previous EF=>70%) 9)Bilateral pleural effusion L>R 10)Bladder Ca 11)CKD II 12)Depression 13)DM II 14)Dyslipidemia 15)GERD 16)GIB 17)Colonic polyp 18)Endometrial Ca 19)Hypothyroidim Past Medical History: COPD, depression, diabetes, GERD, GI bleed, glaucoma, high cholesterol, hypothyroidism, liver disease, other Past Surgical History: 1)Bladder tumor excision 2)Hysterectomy Past Surgical History: colonoscopy, EGD, hysterectomy, other Family History FH: ovarian cancer MOTHER Social History Hx Tobacco Use In Past Year?: No Smoking Status: Former Smoker Drug Use: none Marital status: Occupational Status: retired Immunizations History of Influenza Vaccine: Yes Influenza Vaccine Date: Feb 09, 2016 History of Tetanus Vaccine?: Yes Tetanus Immunization Date: August 31, 2006 History of Pneumococcal: Yes Pneumococcal Date: Feb 24, 2016 History of Hepatitis B Vaccine: Yes Hepatitis Immunization Date: Mar 30, 2008 History of MDRO History of MDRO: No Allergies Coded Allergies: Iron Dextran (Verified Allergy, Severe, IRON INFUSIONS - COULDN'T BREATH - THROAT CLOSING, 05/28/16) Dobutamine (Verified Allergy, Intermediate, DIFFICULTY SWALLOWING, 05/28/16 ) Current Medications Reported Home Medications Medications Dose Route/Sig Max Daily Dose Days Date Category Dose Instructions Aspirin EC Low Dose (Aspirin) 81 Mg Ectab 81 Mg PO 3XWK 05/28/16 Reported Prednisone 10 Mg Tab 20 Mg PO UD 05/28/16 Reported on taper - 40mg x 2 days, 20 mg x 5 days Lasix (Furosemide) 80 Mg Tab 80 Mg PO DAILY 05/28/16 Reported Proair Respiclick (Albuterol Sulfate) 108 Mcg/Act Aer 1-2 Puffs INH Q4 PRN 05/28/16 Reported Lantus (Insulin Glargine) 100 Unit/Ml Inj 45 Units SC BID 05/28/16 Reported Novolog (Insulin Aspart) 100 Units/Ml Inj 30 Units SQ AC 05/28/16 Reported Travatan Z (Travoprost) 0.004 % Deonte 1 Drops OPB HS 10/27/15 Reported Levothyroxine Sodium 112 Mcg Tab 1 Tab PO QAM 90 10/27/15 Reported Toprol-Xl (Metoprolol Succinate) 25 Mg Tabcr 25 Mg PO BID 10/27/15 Reported Lipitor (Atorvastatin Calcium) 80 Mg Tab 80 Mg PO QPM 10/27/15 Reported Aldactone (Spironolactone) 50 Mg Tab 50 Mg PO QAM 10/27/15 Reported Effexor (Venlafaxine Hcl) 100 Mg Tab 100 Mg PO QAM 10/27/15 Reported Xifaxan (Rifaximin) 550 Mg Tab 550 Mg PO BID 10/27/15 Reported Physical Physical Exam Vital Signs: Date Time Temp Pulse Resp B/P Pulse Ox O2 Delivery O2 Flow Rate FiO2 05/30/16 07:36 72 18 95 Nasal Cannula 2.0 05/30/16 07:18 36.4 91 18 153/72 95 Nasal Cannula 2.0 05/30/16 05:34 36.7 93 18 136/73 95 05/30/16 04:10 78 18 95 Nasal Cannula 2.0 05/30/16 04:10 Nasal Cannula 3.0 05/30/16 03:55 36.7 95 18 132/61 97 Nasal Cannula 3.0 05/30/16 02:45 36.7 96 18 132/65 95 Nasal Cannula 3.0 05/30/16 00:15 Nasal Cannula 3.0 05/29/16 22:50 36.7 118 18 148/64 95 Nasal Cannula 3.0 05/29/16 21:44 36.3 114 18 151/62 93 2.0 05/29/16 20:18 82 16 95 Nasal Cannula 2.0 05/29/16 20:10 Nasal Cannula 3.0 05/29/16 19:13 36.7 112 18 142/57 95 Nasal Cannula 3.0 05/29/16 18:24 96 Nasal Cannula 4.0 05/29/16 16:16 86 16 99 Nasal Cannula 4.0 05/29/16 15:52 Nasal Cannula 4.0 05/29/16 15:20 36.8 71 20 127/65 94 Nasal Cannula 4.0 05/29/16 11:38 Nasal Cannula 4.0 05/29/16 11:38 36.8 88 20 143/69 98 4.0 05/29/16 11:15 98 18 99 Nasal Cannula 4.0 05/29/16 10:04 96 20 137/63 99 Nasal Cannula 4.0 General Appearance: WELL-APPEARING, NO APPARENT DISTRESS Eyes: PERRLA, NO DISCHARGE, EOMI, SCLERAE NORMAL, CONJUNCTIVAE NORMAL ENT: NORMAL EAR EXAM, NORMAL NASAL EXAM, NORMAL MOUTH EXAM, NORMAL THROAT EXAM , NORMAL DENTAL EXAM, NORMAL SINUS EXAM Neck: NORMAL RANGE OF MOTION, NO TENDERNESS, TRACHEA MIDLINE, NO STRIDOR, SUPPLE Respiratory: other (decreased bilateral breath sounds left greater than right with dullness to percussion of the left posterior hemithorax) Cardiovasular: REGULAR RATE/RHYTHM, NORMAL S1S2, NO M/G/R, NO MURMUR Abdomen: NON TENDER, NORMAL BOWEL SOUNDS, NO REBOUND Genitourinary - Female: EXTERNAL GENITALIA NORMAL Back: NORMAL INSPECTION, NO MIDLINE TENDERNESS, NO CVA TENDERNESS, NO PARAVERTEBRAL TTP Upper Extremities: edema Lower Extremities: NO EDEMA, NO DEFORMITY, NORMAL ROM Edema: LLE (2+) Pulses: carotid (R) (2+), carotid (L) (2+) Neuro: ALERT, ORIENTED x 3, NORMAL MOTOR EXAM, NORMAL SENSATION, NORMAL CEREBELLAR EXAM Reflexes: biceps (R) (2+), bicpes (L) (2+) Babinski Testing: right (downgoing), left (downgoing) Psychiatric: NORMAL AFFECT, NO SUICIDAL IDEATION, CONTRACTS FOR SAFETY Diagnostics Labs Results Past 24 Hours Test 05/29/16 11:10 05/29/16 16:31 05/29/16 20:33 05/29/16 22:30 Range/Units Bedside Glucose 320 351 312 70-90 mg/dl Sodium Level 138 136-145 mmol/L Potassium Level 3.9 3.5-5.1 mmol/L Chloride Level 101 98-107 mmol/L Carbon Dioxide Level 26 21-32 mmol/L Anion Gap 11.0 3-11 mmol/L Blood Urea Nitrogen 35 7-18 mg/dl Creatinine 2.20 0.60-1.20 mg/dl Est Creatinine Clear Calc Drug Dose 27.7 ml/min Estimated GFR () 25.0 Estimated GFR (Non- 21.5 BUN/Creatinine Ratio 15.9 10-20 Random Glucose 264 70-99 mg/dl Calcium Level 9.0 8.5-10.1 mg/dl Magnesium Level 2.1 1.8-2.4 mg/dl Test 05/29/16 23:30 05/30/16 00:03 05/30/16 05:33 05/30/16 05:56 Range/Units Hemoglobin 9.3 9.4 12.0-16.0 g/dL Hematocrit 28.9 29.6 37-47 % Arterial Blood pH 7.38 7.35-7.45 Arterial Blood Partial Pressure CO2 51 35-46 mmHg Arterial Blood Partial Pressure O2 88 80-95 mm/Hg Arterial Blood HCO3 29 19-24 mmol/L Arterial Blood Oxygen Saturation 95.4 90-95 % Arterial Blood Base Excess 3.6 -9-1.8 mEq/L Arterial Blood Gas Delivery 1.5L Akin Test POS POS Bedside Glucose 253 164 70-90 mg/dl White Blood Count 12.52 4.8-10.8 K/uL Red Blood Count 3.23 4.2-5.4 M/uL Mean Corpuscular Volume 91.6 80-100 fL Mean Corpuscular Hemoglobin 29.1 25-34 pg Mean Corpuscular Hemoglobin Concent 31.8 32-36 g/dl Platelet Count 358 130-400 K/uL Mean Platelet Volume 9.1 7.4-10.4 fL Neutrophils (%) (Auto) 74.3 % Lymphocytes (%) (Auto) 9.2 % Monocytes (%) (Auto) 16.0 % Eosinophils (%) (Auto) 0.2 % Basophils (%) (Auto) 0.1 % Neutrophils # (Auto) 9.32 1.4-6.5 K/uL Lymphocytes # (Auto) 1.15 1.2-3.4 K/uL Monocytes # (Auto) 2.00 0.11-0.59 K/uL Eosinophils # (Auto) 0.02 0-0.5 K/uL Basophils # (Auto) 0.01 0-0.2 K/uL RDW Standard Deviation 51.4 36.4-46.3 fL RDW Coefficient of Variation 15.1 11.5-14.5 % Immature Granulocyte % (Auto) 0.2 % Immature Granulocyte # (Auto) 0.02 0.00-0.02 K/uL Sodium Level 141 136-145 mmol/L Potassium Level 4.3 3.5-5.1 mmol/L Chloride Level 104 98-107 mmol/L Carbon Dioxide Level 30 21-32 mmol/L Anion Gap 7.0 3-11 mmol/L Blood Urea Nitrogen 34 7-18 mg/dl Creatinine 1.90 0.60-1.20 mg/dl Est Creatinine Clear Calc Drug Dose 32.3 ml/min Estimated GFR () 29.8 Estimated GFR (Non- 25.7 BUN/Creatinine Ratio 18.0 10-20 Random Glucose 144 70-99 mg/dl Estimated Average Glucose 177 mg/dl Hemoglobin A1c 7.8 4.5-5.6 % Calcium Level 8.8 8.5-10.1 mg/dl Ammonia 62.0 11-32 umol/L Test 05/30/16 07:39 Range/Units Bedside Glucose 138 70-90 mg/dl Diagnostic Radiology Thoracic US: 05/28/16: 1.5L left pleural effusion CT ABD: jeffery-hepatic fluid with left pleural effusion CTA PE: Left pleural effusion appears loculated, CXR: left sided pleural effusion CXR 02/20/14 left sided pleural effusion EKG Sinus rhythm with right bundle branch block Impression Assessment and Plan 75-year-old female with 6 weeks of progressive dyspnea on exertion/dyspnea at rest: #1 dyspnea: Dyspneal most likely secondary to chronic liver disease with portal hypertension and severe ascites causing left sided pleural effusion. The recent 10-15% of patients single left-sided pleural effusions are noted with hepatic insufficiency/failure. Performing a thoracentesis at this time would be contraindicated as continuous thoracentesis/fluid removal will also remove her proteins albumin and increased risk of infection as well as malnutrition. Patient is also had dramatic improvement after paracentesis. #2 SBP: Spontaneous bacterial peritonitis cannot be ruled out at this time is paracentesis was performed well after 6 hours of antibiotic introduction. At this time would wait for culture results prior to discontinuing antibiotics. #2 portal hypertension: SAAG score was not obtained the patient does have a history of portal hypertension. At this time I suggest we follow GIs recommendations for hepatic insufficiency, portal hypertension with associated shortness of breath.
--- NOTE | 2016-05-30 10:24 | DIAGNOSTIC IMAGING REPORT ---
KUB CLINICAL HISTORY: abdominal discomfort, constipation, small loose stools pain COMPARISON STUDY: 06/06/2007 FINDINGS: Respiratory motion artifact. Nonobstructive bowel pattern. No secondary signs of free air. IMPRESSION: No acute abdominal process. Possible left basilar infiltrate Electronically signed by: Steve Caicedo M.D. 05/30/2016 10:23 AM Dictated Date/Time: 05/30/2016 10:22 AM
--- NOTE | 2016-05-30 12:50 | Progress Note ---
Internal Med Progress Note Date of Service: May 30, 2016. Provider Documentation: SUBJECTIVE: Patient is doing better. SOB has resolved. OOB chair Denies any abdominal pain, nausea, vomiting, fever, chills, chest pain, cough Has not had a BM today Foleys in situ On oxygen 2 L OBJECTIVE: Vital Signs-as noted below Exam: General Appearance:Moderately built and nourished, no apparent distress Head: normocephalic, Atraumatic Eyes: normal inspection, EOMI, PERRLA, anicteric Neck: supple, Trachea midline Respiratory/Chest: Decreased breath sounds, CTA, No accessory muscle use Cardiovascular: S1, S2, NSR, No murmur Abdomen/GI:Soft, Non tender, distended, Bowel sounds present, paracentesis site in bandage Extremities/Musculoskelatal:normal inspection, 1+ B/L LE edema Neurologic/Psych:AAOX3, grossly no focal neurological deficits Lab data as noted below. ASSESSMENT & PLAN: ASSESSMENT & PLAN : ACUTE HYPOXIC RESPIRATORY FAILURE : LIKELY VOLUME OVERLOAD IN SETTING OF GRAHAM / DIASTOLIC CHF / MILD COPD EXACERBATION H/O MEDICATION NON COMPLIANCE: Patient self stopped her Lasix 2 weeks ago . Pt presented with increasing shortness of breath x 1 1/2 months; 74% on RA in ED -IV lasix - Discontinued and changed to PO Lasix/Aldactone as per home -Work up - CXR: CHF and left pleural effusion likely reactionary from GRAHAM; Last ECHO:02/2014: EF > 70% ; Leukocytosis improving: on Steroid taper started by PCP for COPD exacerbation ASCITES: S/P Paracentesis ON 05/29/16- 100 CC Chylous fluid, WBC < 500 -No SBP but was on antibiotics prior to paracentesis. -IV rocephin 2 gram daily x 5 days per GI. Continue with IV Albumin bid -Continue with PO lasix/aldactone as prior to home doses, IV lasix discontinued -US abdomen- reviewed LEFT PLEURAL EFFUSION/HYPOXIA -Possibly related to GRAHAM, but no significant ascites to justify hepato thorax ? Only 100 cc of fluid drained from paracentesis. 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 overflow diarrhea from constipation . Has not had BM today though -KUB today- no acute abnormalities; CT ABD: as below (Mild periaortic and mesenteric adenopathy somewhat progressive from the prior study) DM II Uncontrolled Last A1c: 9.9 02/2016 Continue ISS, Lantus HYPOTHYROIDISM: Continue Levothyroxine PAROXYSMAL AFIB currently in NSR; rate controlled -Continue beta moises -Not on anticoagulated due to anemia/GI bleeding DVT PROPHYLAXIS -SCDs due to hx varices, anemia, GI bleeding CODE STATUS -Full code DISPOSITION: -Continue to monitor: medical mx in progress Vital Signs: Date Time Temp Pulse Resp B/P Pulse Ox O2 Delivery O2 Flow Rate FiO2 05/30/16 11:36 36.4 87 18 146/71 99 Nasal Cannula 2.0 05/30/16 08:00 95 Nasal Cannula 2.0 05/30/16 07:36 72 18 95 Nasal Cannula 2.0 05/30/16 07:18 36.4 91 18 153/72 95 Nasal Cannula 2.0 05/30/16 05:34 36.7 93 18 136/73 95 05/30/16 04:10 78 18 95 Nasal Cannula 2.0 05/30/16 04:10 Nasal Cannula 3.0 05/30/16 03:55 36.7 95 18 132/61 97 Nasal Cannula 3.0 05/30/16 02:45 36.7 96 18 132/65 95 Nasal Cannula 3.0 05/30/16 00:15 Nasal Cannula 3.0 05/29/16 22:50 36.7 118 18 148/64 95 Nasal Cannula 3.0 05/29/16 21:44 36.3 114 18 151/62 93 2.0 05/29/16 20:18 82 16 95 Nasal Cannula 2.0 05/29/16 20:10 Nasal Cannula 3.0 05/29/16 19:13 36.7 112 18 142/57 95 Nasal Cannula 3.0 05/29/16 18:24 96 Nasal Cannula 4.0 05/29/16 16:16 86 16 99 Nasal Cannula 4.0 05/29/16 15:52 Nasal Cannula 4.0 05/29/16 15:20 36.8 71 20 127/65 94 Nasal Cannula 4.0 Lab Results: Results Past 24 Hours Test 05/29/16 16:31 05/29/16 20:33 05/29/16 22:30 05/29/16 23:30 Range/Units Bedside Glucose 351 312 70-90 mg/dl Sodium Level 138 136-145 mmol/L Potassium Level 3.9 3.5-5.1 mmol/L Chloride Level 101 98-107 mmol/L Carbon Dioxide Level 26 21-32 mmol/L Anion Gap 11.0 3-11 mmol/L Blood Urea Nitrogen 35 7-18 mg/dl Creatinine 2.20 0.60-1.20 mg/dl Est Creatinine Clear Calc Drug Dose 27.7 ml/min Estimated GFR () 25.0 Estimated GFR (Non- 21.5 BUN/Creatinine Ratio 15.9 10-20 Random Glucose 264 70-99 mg/dl Calcium Level 9.0 8.5-10.1 mg/dl Magnesium Level 2.1 1.8-2.4 mg/dl Hemoglobin 9.3 12.0-16.0 g/dL Hematocrit 28.9 37-47 % Arterial Blood pH 7.38 7.35-7.45 Arterial Blood Partial Pressure CO2 51 35-46 mmHg Arterial Blood Partial Pressure O2 88 80-95 mm/Hg Arterial Blood HCO3 29 19-24 mmol/L Arterial Blood Oxygen Saturation 95.4 90-95 % Arterial Blood Base Excess 3.6 -9-1.8 mEq/L Arterial Blood Gas Delivery 1.5L Akin Test POS POS Test 05/30/16 00:03 05/30/16 05:33 05/30/16 05:56 05/30/16 07:39 Range/Units Bedside Glucose 253 164 138 70-90 mg/dl White Blood Count 12.52 4.8-10.8 K/uL Red Blood Count 3.23 4.2-5.4 M/uL Hemoglobin 9.4 12.0-16.0 g/dL Hematocrit 29.6 37-47 % Mean Corpuscular Volume 91.6 80-100 fL Mean Corpuscular Hemoglobin 29.1 25-34 pg Mean Corpuscular Hemoglobin Concent 31.8 32-36 g/dl Platelet Count 358 130-400 K/uL Mean Platelet Volume 9.1 7.4-10.4 fL Neutrophils (%) (Auto) 74.3 % Lymphocytes (%) (Auto) 9.2 % Monocytes (%) (Auto) 16.0 % Eosinophils (%) (Auto) 0.2 % Basophils (%) (Auto) 0.1 % Neutrophils # (Auto) 9.32 1.4-6.5 K/uL Lymphocytes # (Auto) 1.15 1.2-3.4 K/uL Monocytes # (Auto) 2.00 0.11-0.59 K/uL Eosinophils # (Auto) 0.02 0-0.5 K/uL Basophils # (Auto) 0.01 0-0.2 K/uL RDW Standard Deviation 51.4 36.4-46.3 fL RDW Coefficient of Variation 15.1 11.5-14.5 % Immature Granulocyte % (Auto) 0.2 % Immature Granulocyte # (Auto) 0.02 0.00-0.02 K/uL Sodium Level 141 136-145 mmol/L Potassium Level 4.3 3.5-5.1 mmol/L Chloride Level 104 98-107 mmol/L Carbon Dioxide Level 30 21-32 mmol/L Anion Gap 7.0 3-11 mmol/L Blood Urea Nitrogen 34 7-18 mg/dl Creatinine 1.90 0.60-1.20 mg/dl Est Creatinine Clear Calc Drug Dose 32.3 ml/min Estimated GFR () 29.8 Estimated GFR (Non- 25.7 BUN/Creatinine Ratio 18.0 10-20 Random Glucose 144 70-99 mg/dl Estimated Average Glucose 177 mg/dl Hemoglobin A1c 7.8 4.5-5.6 % Calcium Level 8.8 8.5-10.1 mg/dl Ammonia 62.0 11-32 umol/L Test 05/30/16 11:26 Range/Units Bedside Glucose 250 70-90 mg/dl
[2016-05-30] MEDS ORDERED: LACTULOSE SYRUP 30 GM/45 ML UDP PO SCH (14:00)
[2016-05-30] MEDS: LACTULOSE 30 GM PO SCH ×4 (14:00→20:58)
[2016-05-30] MEDS: RASPBERRY PO SCH ×4 (14:00→20:58)
--- NOTE | 2016-05-30 14:18 | DIAGNOSTIC IMAGING REPORT ---
CHEST ONE VIEW PORTABLE CLINICAL HISTORY: please check size of L pleural effusion pleural effusion COMPARISON STUDY: 05/28/2016 FINDINGS: Left pleural effusion unchanged from the prior study. Components of congestive heart failure persist. Right hemidiaphragm is smooth. IMPRESSION: Unchanged exam. Unchanging left pleural effusion. Congestive heart failure stable Electronically signed by: Steve Caicedo M.D. 05/30/2016 2:16 PM Dictated Date/Time: 05/30/2016 2:16 PM
[2016-05-30] MEDS: CEFTRIAXONE SOD INJ 2,000 MG in DEXTROSE 5% 50ML 50 ML IV SCH (17:00)
[2016-05-30] MEDS: ATORVASTATIN 40 MG TAB PO SCH (20:57)
[2016-05-30] MEDS: TRAVOPROST Z 0.004% OPH SOLN 2.5 ML BTL OPB SCH (20:59)
--- NOTE | 2016-05-30 21:22 | ECHOCARDIOGRAM REPORT ---
*NOTICE TO RECEIVING [employer] This information is strictly Confidential and protected under [place] law. [place] law prohibits you from making any further disclosure of this information unless further disclosure is expressly permitted by the written consent of the person to whom it pertains or is authorized by law. A general authorization for the release of medical or other information is not sufficient for this purpose. Hospital accepts no responsibility if the information is made available to any other person, INCLUDING THE PATIENT. Interpretation Summary * The study was technically adequate. * -- Conclusions -- * Sinsus tachycardia was present during the echocardiogram study. * There is mild concentric left ventricular hypertrophy. * The left ventricular wall motion is normal. * The left ventricle is hyperdynamic. * Ejection Fraction = >70 %. * Aortic valve sclerosis mild, without significant aortic valvular stenosis. * There is no pericardial effusion. * Moderate size left pleural effusion. Procedure Details * A complete two-dimensional transthoracic echocardiogram was performed (2D, M-mode, Doppler and color flow Doppler). * The study was technically difficult. * A contrast injection of Definity was performed to improve assessment of LV function. * Contrast was injected into an intravenous site in the right arm. * One vial of Definity ultrasound contrast was diluted in normal saline to a total volume of 10 ml. A total of '2' ml of solution was administered during imaging. * Lot # [id number] of Definity utilized for procedure. * Expiration date MAY 27. * The attending nurse who injected the contrast agent was LEVI LOVING RN. Left Ventricle * The left ventricle is normal in size. * There is mild concentric left ventricular hypertrophy. * The left ventricle is hyperdynamic. * Ejection Fraction = >70 %. * The left ventricular wall motion is normal. Right Ventricle * The right ventricle is normal in size and function. Atria * The left atrial size is normal. * Right atrial size is normal. * There is no evidence of atrial septal defect, but resolution does not allow assessment for a patent foramen ovale. Mitral Valve * There is severe mitral annular calcification. * There is no mitral valve stenosis. * Significant mitral regurgitation is absent. Tricuspid Valve * The tricuspid valve is normal. * There is no tricuspid stenosis. * Significant tricuspid regurgitation is absent. * Doppler findings do not suggest pulmonary hypertension. Aortic Valve * The aortic valve is trileaflet. * Aortic valve sclerosis mild, without significant aortic valvular stenosis. * Aortic stenosis is absent. * There is no significant aortic regurgitation. Pulmonic Valve * The pulmonary valve is not well seen, but the Doppler examination is normal without significant regurgitation or stenosis. Great Vessels * The aortic root and proximal ascending aorta are normal sized. Pericardium/Pleural * There is no pericardial effusion. * Moderate size left pleural effusion. Great Vessels * Normal inferior vena cava diameter and respiratory variation suggests normal central venous pressure. MMode 2D Measurements and Calculations IVSd 1.7 cm IVSs 2.0 cm LVIDd 4.8 cm LVIDs 3.2 cm LVPWd 1.4 cm LVPWs 1.4 cm IVS/LVPW 1.2 FS 32.8 % EDV(Teich) 107.6 ml ESV(Teich) 41.8 ml EF(Teich) 61.1 % EDV(cubed) 110.6 ml ESV(cubed) 33.6 ml EF(cubed) 69.6 % % IVS thick 17.1 % % LVPW thick 2.4 % LV mass(C)d 321.9 grams LV mass(C)dI 151.4 grams/m\S\2 LV mass(C)s 219.7 grams LV mass(C)sI 103.3 grams/m\S\2 SV(Teich) 65.8 ml SI(Teich) 30.9 ml/m\S\2 SV(cubed) 77.0 ml SI(cubed) 36.2 ml/m\S\2 Ao root diam 3.7 cm Ao root area 10.5 cm\S\2 ACS 1.4 cm LA dimension 3.7 cm LA/Ao 1.0 LVOT diam 2.0 cm LVOT area 3.0 cm\S\2 LVAd ap4 34.0 cm\S\2 LVLd ap4 7.8 cm EDV(MOD-sp4) 124.6 ml EDV(sp4-el) 125.8 ml LVAs ap4 20.7 cm\S\2 LVLs ap4 6.5 cm ESV(MOD-sp4) 58.3 ml ESV(sp4-el) 56.4 ml EF(MOD-sp4) 53.2 % EF(sp4-el) 55.2 % LVAd ap2 25.9 cm\S\2 LVLd ap2 7.4 cm EDV(MOD-sp2) 77.4 ml EDV(sp2-el) 77.3 ml LVAs ap2 16.4 cm\S\2 LVLs ap2 6.4 cm ESV(MOD-sp2) 34.7 ml ESV(sp2-el) 35.9 ml EF(MOD-sp2) 55.1 % EF(sp2-el) 53.6 % LVLd %diff -5.60 % EDV(MOD-bp) 102.0 ml LVLs %diff -1.20 % ESV(MOD-bp) 44.7 ml EF(MOD-bp) 56.2 % SV(MOD-sp4) 66.3 ml SI(MOD-sp4) 31.2 ml/m\S\2 SV(MOD-sp2) 42.7 ml SI(MOD-sp2) 20.1 ml/m\S\2 SV(MOD-bp) 57.3 ml SI(MOD-bp) 27.0 ml/m\S\2 SV(sp4-el) 69.4 ml SI(sp4-el) 32.6 ml/m\S\2 SV(sp2-el) 41.4 ml SI(sp2-el) 19.5 ml/m\S\2 Doppler Measurements and Calculations MV E max mary 157.6 cm/sec MV A max mary 122.7 cm/sec MV E/A 1.3 MV P1/2t max mary 175.1 cm/sec MV P1/2t 62.9 msec MVA(P1/2t) 3.5 cm\S\2 MV dec slope 816.0 cm/sec\S\2 MV dec time 0.30 sec Ao V2 max 222.6 cm/sec Ao max PG 19.8 mmHg Ao max PG (full) 13.5 mmHg JAMES(V,A) 1.7 cm\S\2 JAMES(V,D) 1.7 cm\S\2 LV V1 max PG 6.3 mmHg LV V1 max 125.6 cm/sec PA V2 max 146.6 cm/sec PA max PG 8.6 mmHg
[2016-05-30 21:34] LABS: URINE APPEARANCE CLOUDY (CLEAR); URINE BILIRUBIN NEG (NEG); URINE COLOR YELLOW; URINE EPITHELIAL CELL AUTO >30 /lpf (0-5); URINE NITRITE NEG (NEG); UROBILINOGEN NEG (NEG); ZZUR CULT IF INDIC CLEAN CATCH NO
[2016-05-30 21:56] LABS: MANUAL MICROSCOPIC REQUIRED? NO; REVIEW REQ? YES
[2016-05-30 21:57] LABS: URINE PATH CASTS 0-3 GRANULAR CASTS /lpf (0)
[2016-05-30] MEDS ORDERED: METOPROLOL SUCC 25MG EXT REL TAB PO STA (23:52)
[2016-05-31] VITALS (17 sets, daily range): BP systolic 127–162; BP diastolic 55–74; PULSE 94–105; TEMP 36.2–36.7; O2SAT 86–97
[2016-05-31] MEDS: LEVALBUTEROL 1.25MG/0.5ML NEB INH SCH ×4 (03:00→18:59)
[2016-05-31] MEDS: IPRATROPIUM BROMIDE NEB SOLN 0.02% 2.5 ML VIAL INH SCH ×4 (03:00→18:59)
[2016-05-31 06:58] LABS: COMPLETE YES; EOS % 0.3 %; IG% 0.2 %; LYMPH % 8.6 %; LYMPH ABS # 1.01 K/uL (1.2-3.4); MEAN CELL VOLUME 91.2 fL (80-100); MEAN CORPUSCULAR HEMOGLOBIN 28.9 pg (25-34); MEAN CORPUSCULAR HGB CONC 31.7 g/dl (32-36); MEAN PLATELET VOLUME 9.1 fL (7.4-10.4); MONO % 14.4 %; NEUT % 76.5 %; PLATELET COUNT 339 K/uL (130-400); RED BLOOD COUNT 3.18 M/uL (4.2-5.4); WHITE BLOOD COUNT 11.77 K/uL (4.8-10.8)
[2016-05-31 07:29] LABS: BUN/CREATININE RATIO 23.6 (10-20); CALCIUM 8.9 mg/dl (8.5-10.1); CREATININE 1.6 mg/dl (0.60-1.20); POTASSIUM 4.3 mmol/L (3.5-5.1)
[2016-05-31] MEDS: INSULIN ASPART 100 UNITS/ML 3 ML PEN SC SCH ×4 (08:33→21:14)
[2016-05-31] MEDS: INSULIN GLARGINE SOLOSTAR 100 UNITS/ML 3 ML PEN SC SCH ×2 (08:34→21:16)
[2016-05-31] MEDS: LACTULOSE 30 GM PO SCH ×6 (08:39→21:07)
[2016-05-31] MEDS: RASPBERRY PO SCH ×6 (08:39→21:07)
[2016-05-31] MEDS: ASPIRIN 81 MG ECTAB PO SCH (08:42)
[2016-05-31] MEDS: VENLAFAXINE HCL 50 MG TAB PO SCH (08:43)
[2016-05-31] MEDS: LEVOTHYROXINE 112 MCG TAB PO SCH (08:43)
[2016-05-31] MEDS: METOPROLOL SUCC 25MG EXT REL TAB PO SCH ×2 (08:44→21:09)
[2016-05-31] MEDS: RIFAXIMIN TAB 550 MG TAB PO SCH ×2 (08:44→21:08)
[2016-05-31] MEDS: UNIT DOSE COMPOUND PO SCH ×3 (08:45→21:07)
[2016-05-31] MEDS ORDERED: RASPBERRY PO SCH ×2 (09:00)
[2016-05-31] MEDS ORDERED: SPIRONOLACTONE 25 MG TAB PO SCH (09:00)
[2016-05-31] MEDS ORDERED: LACTULOSE 30 GM PO SCH ×2 (09:00)
[2016-05-31] MEDS ORDERED: FUROSEMIDE 80 MG TAB PO SCH (09:00)
--- NOTE | 2016-05-31 09:05 | Clinical Documentation Query ---
CLINICAL DOCUMENTATION QUERY Dr. ALVARADO, Please specify acuity of hepatic encephalopathy for accurate coding In your clinical opinion is this patient being managed for: ( + ) Acute hepatic encephalopathy ( ) Other explanation of clinical findings (Please Explain) ( ) Unable to determine (Please Define) ( ) Need to Discuss ( ) Not Agree The medical record reflects the following clinical findings, treatment, and risk factors. Clinical Indicators: H/P indicates pt with hepatic encephalopathy. Pt was noted to have increasing confusion over several weeks and ammonia level 37 which trended up to 62. Most recent progress note indicates pt's mental status returned to baseline Treatment: restart lactulose and rifaximin, GI consult Risk Factors: medication noncompliance Please clarify and document your clinical opinion in the progress notes and discharge summary. Terms such as "probable", "suspected", "likely", "questionable", "possible", or "still to be ruled out" are acceptable. IF IN AGREEMENT, YOU MUST DOCUMENT ABOVE DIAGNOSTIC STATEMENT IN DAILY PROGRESS NOTES AND DISCHARGE SUMMARY. This document is not part of the patient's record. Thank You, Jessica Leon, LUIS M [phone]
--- NOTE | 2016-05-31 09:24 | Gastroenterology Progress Note ---
Progress Note Date of Service: May 31, 2016 Subjective Pt evaluation today including: conversation w/ patient, physical exam, lab review Ms. Coy was seen and examined this morning. She reports that she is feeling well. She is taking her lactulose and had 3 small BM yesterday and one large BM. She reports that she has been continent of stool so far. Her SOB is unchanged and she is still wearing O2. She reports that she felt as if her chest was tight and now she has developed a looser more productive cough w/ clear & green tinged sputum. She denies any fever, chills, chest pain, abdominal pain or other GI symptoms. Her diuretics were stopped yesterday due to worsening kidney function and albumin was started. Will watch kidneys and reintroduce home dosing of PO diuretics when appropriate. GI was in contact with pulmonary yesterday evening - there is no plan for diagnostic thoracentesis as this was worked up in the past. Repeat CXR was order - left pleural effusion unchanged from the prior study. Components of congestive heart failure persist. Right hemidiaphragm is smooth. Review of Systems Constitutional: No chills, No fever ENT: No hearing loss Respiratory: + cough, + shortness of breath Cardiac: No chest pain, No edema Abdomen: + diarrhea (GI suggest titrating her lactulose for 2-3 continent BM daily), No GI bleeding, No constipation, No nausea, No pain, No vomiting Medications Current Inpatient Medications Medications (Trade) Dose Ordered Sig/Virgil Route Start Time Stop Time Status Last Admin Dose Admin Acetaminophen (Tylenol Tab) 650 mg Q4H PRN PO 05/28/16 14:00 06/27/16 13:59 Ondansetron HCl (Zofran Inj) 4 mg Q6H PRN IV 05/28/16 14:00 06/27/16 13:59 Ioversol (Optiray 320) 100 ml UD PRN IV 05/28/16 14:15 06/01/16 14:14 Insulin Aspart (novoLOG ASPART) SLIDING SCALE If C... ACHS SC 05/28/16 16:00 06/27/16 15:59 05/31/16 08:33 13 UNITS Glucose (Glucose 40% Gel) 15-30 GRAMS 15 GRAMS... UD PRN PO 05/28/16 14:30 06/27/16 14:29 Glucose (Glucose Chew Tab) 4-8 Tablets 4 Tabl... UD PRN PO 05/28/16 14:30 06/27/16 14:29 Dextrose (Dextrose 50% 50ML Syringe) 25-50ML OF 50% DW IV FOR... UD PRN IV 05/28/16 14:30 06/27/16 14:29 Glucagon (Glucagon Inj) 1 mg UD PRN SQ 05/28/16 14:30 06/27/16 14:29 Miscellaneous Information (Consult Glycemic Management Pharmacy) 1 ea UD N/A 05/28/16 16:19 06/27/16 16:18 Aspirin (Ecotrin Tab) 81 mg MoWeFr@0900 PO 05/29/16 09:00 06/28/16 08:59 05/31/16 08:42 81 MG Atorvastatin Calcium (Lipitor Tab) 80 mg QPM PO 05/28/16 21:00 06/27/16 20:59 05/30/16 20:57 80 MG Insulin Glargine (Lantus Solostar Pen) 45 unit BID SC 05/28/16 21:00 06/27/16 20:59 05/31/16 08:34 45 UNIT Levothyroxine Sodium (Synthroid Tab) 112 mcg QAM PO 05/29/16 09:00 06/28/16 08:59 05/31/16 08:43 112 MCG Metoprolol Succinate (Toprol Xl Tab) 25 mg BID PO 05/28/16 21:00 06/27/16 20:59 05/31/16 08:44 25 MG Prednisone (PredniSONE TAB) 20 mg Taper DAILY PO 05/29/16 09:00 06/05/16 08:59 05/31/16 08:43 20 MG Rifaximin (Xifaxan Tab) 550 mg BID PO 05/28/16 21:00 06/27/16 20:59 05/31/16 08:44 550 MG Travoprost (Travatan Z) 1 drops HS OPB 05/28/16 21:00 06/27/16 20:59 05/30/16 20:59 1 DROPS Venlafaxine HCl 100 mg 100 mg QAM PO 05/29/16 09:00 06/28/16 08:59 05/31/16 08:43 100 MG Ceftriaxone Sodium/Dextrose (Rocephin Inj/D5 50ml) 70 ml @ 100 mls/hr Q24H IV 05/28/16 17:00 06/07/16 16:59 05/30/16 17:00 100 MLS/HR Ipratropium Harmon (Atrovent 0.02% 0.5MG/2.5ML Neb) 0.5 mg Q6R INH 05/30/16 03:00 06/29/16 02:59 05/31/16 07:38 0.5 MG Levalbuterol (Xopenex 1.25MG/ 0.5ML Neb) 1.25 mg Q6R INH 05/30/16 03:00 06/29/16 02:59 05/31/16 07:38 1.25 MG Ipratropium Harmon (Atrovent 0.02% 0.5MG/2.5ML Neb) 0.5 mg Q4H PRN INH 05/29/16 21:45 06/28/16 21:44 Levalbuterol 1.25 mg Q4H PRN INH 05/29/16 21:45 06/28/16 21:44 Lactulose/ Raspberry (Chronulac Syrup/ Raspberry Syrup) TID PO 05/30/16 14:00 06/29/16 13:59 05/31/16 08:39 15 ML Miscellaneous (Unit Dose Compound) 1 ea TID PO 05/31/16 09:00 06/30/16 08:59 05/31/16 08:45 1 EA Objective Vital Signs Date Time Temp Pulse Resp B/P Pulse Ox O2 Delivery O2 Flow Rate FiO2 05/31/16 07:52 36.5 103 18 162/74 95 Nasal Cannula 3.0 05/31/16 07:38 97 18 97 Nasal Cannula 3.0 05/31/16 05:19 36.3 105 18 144/62 96 3.0 05/31/16 04:00 Nasal Cannula 2.0 05/31/16 03:48 102 18 96 Nasal Cannula 2.0 05/31/16 00:22 36.5 102 18 150/71 94 Nasal Cannula 2.0 05/31/16 00:20 86 Room Air 05/31/16 00:00 Room Air 05/30/16 23:40 36.7 110 18 161/69 90 Room Air 2/21/17 23:19 36.5 110 18 150/68 90 Room Air 05/30/16 22:15 36.9 110 22 162/66 92 Room Air 05/30/16 20:15 102 18 95 Room Air 05/30/16 20:15 36.6 106 20 162/75 100 Room Air 05/30/16 20:00 93 Nasal Cannula 2.0 05/30/16 20:00 36.6 96 20 148/63 91 Room Air 05/30/16 19:40 36.7 104 20 146/71 91 Room Air 05/30/16 16:45 36.6 98 20 149/72 93 Room Air 05/30/16 16:30 36.5 110 18 156/77 91 Room Air 05/30/16 16:00 93 Nasal Cannula 2.0 05/30/16 15:01 36.8 90 22 150/60 93 Nasal Cannula 2.0 05/30/16 14:10 92 18 98 Nasal Cannula 2.0 05/30/16 12:00 95 Nasal Cannula 2.0 05/30/16 11:36 36.4 87 18 146/71 99 Nasal Cannula 2.0 Physical Exam General Appearance: no apparent distress Eyes: PERRL, EOMI ENT: hearing grossly normal Neck: supple, trachea midline Respiratory/Chest: chest non-tender, no respiratory distress, no accessory muscle use, + decreased breath sounds, + pertinent finding (expiratory crackles right upper lobe) Cardiovascular: regular rate, rhythm, no gallop, no JVD, no murmur Abdomen: normal bowel sounds, non tender, soft, no organomegaly, no pulsatile mass Neurologic/Psych: alert, normal mood/affect, oriented x 3 Skin: normal color, no jaundice, warm/dry, no rash Laboratory Results Last 24 Hours Test 05/30/16 11:26 05/30/16 16:18 05/30/16 20:11 05/31/16 06:27 Bedside Glucose 250 mg/dl 217 mg/dl 255 mg/dl White Blood Count 11.77 K/uL Red Blood Count 3.18 M/uL Hemoglobin 9.2 g/dL Hematocrit 29.0 % Mean Corpuscular Volume 91.2 fL Mean Corpuscular Hemoglobin 28.9 pg Mean Corpuscular Hemoglobin Concent 31.7 g/dl Platelet Count 339 K/uL Mean Platelet Volume 9.1 fL Neutrophils (%) (Auto) 76.5 % Lymphocytes (%) (Auto) 8.6 % Monocytes (%) (Auto) 14.4 % Eosinophils (%) (Auto) 0.3 % Basophils (%) (Auto) 0.0 % Neutrophils # (Auto) 9.02 K/uL Lymphocytes # (Auto) 1.01 K/uL Monocytes # (Auto) 1.69 K/uL Eosinophils # (Auto) 0.03 K/uL Basophils # (Auto) 0.00 K/uL RDW Standard Deviation 50.7 fL RDW Coefficient of Variation 15.1 % Immature Granulocyte % (Auto) 0.2 % Immature Granulocyte # (Auto) 0.02 K/uL Sodium Level 140 mmol/L Potassium Level 4.3 mmol/L Chloride Level 102 mmol/L Carbon Dioxide Level 30 mmol/L Anion Gap 8.0 mmol/L Blood Urea Nitrogen 38 mg/dl Creatinine 1.60 mg/dl Est Creatinine Clear Calc Drug Dose 38.1 ml/min Estimated GFR () 36.7 Estimated GFR (Non- 31.6 BUN/Creatinine Ratio 23.6 Random Glucose 149 mg/dl Calcium Level 8.9 mg/dl Total Bilirubin 0.6 mg/dl Aspartate Amino Transf (AST/SGOT) 30 U/L Alanine Aminotransferase (ALT/SGPT) 34 U/L Alkaline Phosphatase 120 U/L Total Protein 7.2 gm/dl Albumin 3.6 gm/dl Globulin 3.6 gm/dl Albumin/Globulin Ratio 1.0 Test 05/31/16 07:39 Bedside Glucose 148 mg/dl Assessment and Plan Patient is a 75 year old female with worsening SOB and confusion. At the time of admission, she was not taking her lactulose and her ammonia was elevated to 54. She was taking xifaxan 550 BID. Differentials include hepatic encephalopathy , hypoxia, infection etc. She is now taking lactulose and receiving breathing treatments, it is unclear the etiology of her confusion. She is feeling much better Continue empiric coverage for SBP - on day 3 of 5 day course of Rocephin 2 g daily. Can complete treatment if with cipro 500 once daily. lactulose 30 gm TID as tolerated - please titrate dose to 2/3 BM daily xifaxan 550 BID diet as tolerated albumin 25 gm BID hold lasix/aldactone secondary to worsening kidney function consult nephrology urine NA 45 I have personally seen and examined patient with JULIO C Pearce. Her note reflects my findings and exam. I agree with her impression and plan. Since patient does not have a significant amount of abdominal ascites, it is hard for me to believe the pulmonary effusion is solely a result of it. Agree with renal input. Rahul Rasheed M.D.
[2016-05-31] MEDS: ALBUMIN HUMAN 25% 12.5 GM/50 ML VIAL IV SCH ×4 (11:23→22:28)
--- NOTE | 2016-05-31 12:18 | Pharmacy Progress Note ---
Glycemic Control: Progress Nt Date of Service May 31, 2016. Scope Glycemic Pharmacist consulted for glycemic control and to write orders per [facility] inpatient glycemic control protocol. Objective Accuchecks BSG (last 24hrs): Test 05/30/16 16:18 05/30/16 20:11 05/31/16 06:27 05/31/16 07:39 Bedside Glucose 217 mg/dl (70-90) 255 mg/dl (70-90) 148 mg/dl (70-90) Random Glucose 149 mg/dl (70-99) Test 05/31/16 11:41 Bedside Glucose 132 mg/dl (70-90) Laboratory Data (last 24hrs) Test 05/31/16 06:27 Anion Gap 8.0 mmol/L BUN/Creatinine Ratio 23.6 Blood Urea Nitrogen 38 mg/dl Creatinine 1.60 mg/dl Potassium Level 4.3 mmol/L Sodium Level 140 mmol/L White Blood Count 11.77 K/uL Red Blood Count 3.18 M/uL Hemoglobin 9.2 g/dL Hematocrit 29.0 % Mean Corpuscular Volume 91.2 fL Mean Corpuscular Hemoglobin 28.9 pg Mean Corpuscular Hemoglobin Concent 31.7 g/dl Platelet Count 339 K/uL Mean Platelet Volume 9.1 fL Neutrophils (%) (Auto) 76.5 % Lymphocytes (%) (Auto) 8.6 % Monocytes (%) (Auto) 14.4 % Eosinophils (%) (Auto) 0.3 % Basophils (%) (Auto) 0.0 % Neutrophils # (Auto) 9.02 K/uL Lymphocytes # (Auto) 1.01 K/uL Monocytes # (Auto) 1.69 K/uL Eosinophils # (Auto) 0.03 K/uL Basophils # (Auto) 0.00 K/uL HbA1c: Test 05/30/16 05:56 Hemoglobin A1c 7.8 % (4.5-5.6) H Recent Pertinent Medications Outpatient Anti-diabetic Regimen: * Lantus 45 units SQ BID * NovoLog 30 units AC + 20 units with snacks The patient is currently receiving: * Basal insulin: Lantus 45 units every 12 hours * Correctional Insulin: Novolog Correction per scale ACHS Goal Range: Low 120 mg/dL - High 160 mg/dL Correction Factor: 10 mg/dL/unit * Prandial insulin: Per carb ratio of 1 unit per 3 grams CHO consumed Assessment & Plan ASSESSMENT: * 75yo T2DM female with well controlled diabetes as an outpatient per recent A1c * Pt with sustained moderate-severe hyperglycemia secondary to large dose of Solumedrol given 05/28 followed by prednisone 40mg daily. * Prednisone dose is tapering to 20mg daily, expect BSGs to improve with this step down in steroid dosing * BSGs over the past 24hrs: AM Lunch Dinner HS * 05/30: 138 250 217 265 * 05/31: 148 132 * AM fasting BSGs are in goal range indicating adequate basal insulin dosing - will continue current dosing which is c/w outpatient dosing * BSGs trend upwards throughout the day indicating more prandial coverage needed, however, prednisone dose cut in half today. Expect improvement with decreased steroids. Will empirically decrease CF/CR slightly to prevent hypo. * ADA & AACE recommend a goal blood sugar range 140-180 mg/dl for the majority of critically ill & non-critically ill patients. However, more stringent targets may be selected in individual cases. Will utilize more stringent goal range of 120-160mg/dl based on tight degree of outpatient control. PLAN FOR INPATIENT GLYCEMIC CONTROL: * Continue Basal insulin with LANTUS 45 units SQ BID * Correctional Insulin with NOVOLOG per scale ACHS or Q6hrs while NPO * Goal Range: Low 120 mg/dL - High 160 mg/dL * LOOSEN Correction Factor: 15 mg/dL/unit * LOOSEN Nutritional / Prandial insulin per carb ratio of 1 unit per 4 grams CHO consumed * Please note that the plan above was derived based on current level of insulin resistance and hospital stress. These recommendations are appropriate for inpatient admission only. Plan of care upon discharge will need to be reassessed to avoid potential outpatient hypo/hyperglycemia. Thank you.
--- NOTE | 2016-05-31 12:45 | Progress Note ---
Internal Med Progress Note Date of Service: May 31, 2016. Provider Documentation: SUBJECTIVE: Patient is doing better. SOB has resolved at rest, but still feels it when she walks. OOB chair Denies any abdominal pain, nausea, vomiting, fever, chills, chest pain, cough Foleys in situ On oxygen 2 L OBJECTIVE: Vital Signs-as noted below Exam: General Appearance:Moderately built and nourished, no apparent distress Head: normocephalic, Atraumatic Eyes: anicteric Neck: supple Respiratory/Chest: Decreased breath sounds, CTA, No accessory muscle use Cardiovascular: S1, S2, NSR, No murmur Abdomen/GI:Soft, Non tender, distended, Bowel sounds present Extremities/Musculoskelatal:normal inspection, 1+ B/L LE edema Neurologic/Psych:AAOX3, grossly no focal neurological deficits Lab data as noted below. ASSESSMENT & PLAN: ASSESSMENT & PLAN : ACUTE HYPOXIC RESPIRATORY FAILURE : MULTIFACTORIAL: LEFT PLEURAL EFFUSION/ VOLUME OVERLOAD IN SETTING OF GRAHAM / DIASTOLIC CHF / MILD COPD EXACERBATION H/O MEDICATION NON COMPLIANCE: Patient self stopped her Lasix 2 weeks ago . Pt presented with increasing shortness of breath x 1 1/2 months; 74% on RA in ED -IV lasix - Held yesterday as creatinine went up -Work up - CXR : CHF and left pleural effusion likely reactionary from GRAHAM; Last ECHO:02/2014: EF > 70% ; Leukocytosis improving: on Steroid taper started by PCP for COPD exacerbation ASCITES: S/P Paracentesis ON 05/29/16- 100 CC Chylous fluid, WBC < 500 -No SBP but was on antibiotics prior to paracentesis. -IV rocephin 2 gram daily for prophylaxis x Day 3/ 5 days per GI. Continue with IV Albumin bid -Held IV lasix as creatine went up. At home on Aldactone 50 mg, Lasix 80 mg -US abdomen- reviewed LEFT PLEURAL EFFUSION/HYPOXIA -Possibly related to GRAHAM, but no significant ascites to justify hepato thorax ? Only 100 cc of fluid drained from paracentesis. 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 overflow diarrhea from constipation . Has not had BM today though -KUB today- no acute abnormalities; CT ABD: as below (Mild periaortic and mesenteric adenopathy somewhat progressive from the prior study) DM II Uncontrolled Last A1c: 9.9 02/2016 Continue ISS, Lantus HYPOTHYROIDISM: Continue Levothyroxine PAROXYSMAL AFIB currently in NSR; rate controlled -Continue beta moises -Not on anticoagulated due to anemia/GI bleeding DVT PROPHYLAXIS -SCDs due to hx varices, anemia, GI bleeding CODE STATUS -Full code DISPOSITION: -Continue to monitor: medical mx in progress Vital Signs: Date Time Temp Pulse Resp B/P Pulse Ox O2 Delivery O2 Flow Rate FiO2 05/31/16 12:00 Nasal Cannula 2.0 05/31/16 11:21 36.2 100 20 161/67 90 Nasal Cannula 2.0 05/31/16 08:00 Nasal Cannula 2.0 05/31/16 07:52 36.5 103 18 162/74 95 Nasal Cannula 3.0 05/31/16 07:38 97 18 97 Nasal Cannula 3.0 05/31/16 05:19 36.3 105 18 144/62 96 3.0 05/31/16 04:00 Nasal Cannula 2.0 05/31/16 03:48 102 18 96 Nasal Cannula 2.0 05/31/16 00:22 36.5 102 18 150/71 94 Nasal Cannula 2.0 05/31/16 00:20 86 Room Air 05/31/16 00:00 Room Air 05/30/16 23:40 36.7 110 18 161/69 90 Room Air 05/30/16 23:19 36.5 110 18 150/68 90 Room Air 05/30/16 22:15 36.9 110 22 162/66 92 Room Air 05/30/16 20:15 102 18 95 Room Air 05/30/16 20:15 36.6 106 20 162/75 100 Room Air 05/30/16 20:00 93 Nasal Cannula 2.0 05/30/16 20:00 36.6 96 20 148/63 91 Room Air 05/30/16 19:40 36.7 104 20 146/71 91 Room Air 05/30/16 16:45 36.6 98 20 149/72 93 Room Air 05/30/16 16:30 36.5 110 18 156/77 91 Room Air 05/30/16 16:00 93 Nasal Cannula 2.0 05/30/16 15:01 36.8 90 22 150/60 93 Nasal Cannula 2.0 05/30/16 14:10 92 18 98 Nasal Cannula 2.0 Lab Results: Results Past 24 Hours Test 05/30/16 16:18 05/30/16 20:11 05/31/16 06:27 05/31/16 07:39 Range/Units Bedside Glucose 217 255 148 70-90 mg/dl White Blood Count 11.77 4.8-10.8 K/uL Red Blood Count 3.18 4.2-5.4 M/uL Hemoglobin 9.2 12.0-16.0 g/dL Hematocrit 29.0 37-47 % Mean Corpuscular Volume 91.2 80-100 fL Mean Corpuscular Hemoglobin 28.9 25-34 pg Mean Corpuscular Hemoglobin Concent 31.7 32-36 g/dl Platelet Count 339 130-400 K/uL Mean Platelet Volume 9.1 7.4-10.4 fL Neutrophils (%) (Auto) 76.5 % Lymphocytes (%) (Auto) 8.6 % Monocytes (%) (Auto) 14.4 % Eosinophils (%) (Auto) 0.3 % Basophils (%) (Auto) 0.0 % Neutrophils # (Auto) 9.02 1.4-6.5 K/uL Lymphocytes # (Auto) 1.01 1.2-3.4 K/uL Monocytes # (Auto) 1.69 0.11-0.59 K/uL Eosinophils # (Auto) 0.03 0-0.5 K/uL Basophils # (Auto) 0.00 0-0.2 K/uL RDW Standard Deviation 50.7 36.4-46.3 fL RDW Coefficient of Variation 15.1 11.5-14.5 % Immature Granulocyte % (Auto) 0.2 % Immature Granulocyte # (Auto) 0.02 0.00-0.02 K/uL Sodium Level 140 136-145 mmol/L Potassium Level 4.3 3.5-5.1 mmol/L Chloride Level 102 98-107 mmol/L Carbon Dioxide Level 30 21-32 mmol/L Anion Gap 8.0 3-11 mmol/L Blood Urea Nitrogen 38 7-18 mg/dl Creatinine 1.60 0.60-1.20 mg/dl Est Creatinine Clear Calc Drug Dose 38.1 ml/min Estimated GFR () 36.7 Estimated GFR (Non- 31.6 BUN/Creatinine Ratio 23.6 10-20 Random Glucose 149 70-99 mg/dl Calcium Level 8.9 8.5-10.1 mg/dl Total Bilirubin 0.6 0.2-1 mg/dl Aspartate Amino Transf (AST/SGOT) 30 15-37 U/L Alanine Aminotransferase (ALT/SGPT) 34 12-78 U/L Alkaline Phosphatase 120 45-117 U/L Total Protein 7.2 6.4-8.2 gm/dl Albumin 3.6 3.4-5.0 gm/dl Globulin 3.6 2.5-4.0 gm/dl Albumin/Globulin Ratio 1.0 0.9-2 Test 05/31/16 11:41 Range/Units Bedside Glucose 132 70-90 mg/dl Microbiology Results 05/31/16 C.difficile Toxin B Gene (PCR), Received Pending 05/31/16 Shiga Toxin Test, Received Pending 05/31/16 Stool Culture, Received Pending
--- NOTE | 2016-05-31 17:12 | Pulmonology Progress Note ---
Pulmonary Progress Note Date of Service May 31, 2016. Attending Shilo Perkins Subjective Patient still notes dyspnea on exertion but notices improvement at this time. Objective Patient is sitting up in a chair able to have conversation with no signs of increased work of breathing: Tachypnea, use of accessory muscles are intermittent interruptions in her speech to catch her breath Vital signs: Reviewed and stable Respiratory: Mostly clear to auscultation but decreased breath sounds/dull to percussion left lower lobe Cardiac: S1-S2 regular rate and rhythm but distant heart sounds Abdomen: Distended decreased breath sounds but no tenderness to deep palpation Assessment & Plan 75-year-old female with progressive dyspnea on exertion and nonalcoholic steatohepatitis hepatitis/cirrhosis: #1 Dyspnea: Dyspnea most likely combination of deconditioning, cirrhosis and associated pleural effusion. At this time intervention/thoracentesis is not warranted. I would suggest we perform two-step study prior to discharge for evaluation of home oxygen use. Thank you very much for this consultation we'll sign off at this time please call if change in patient's pulmonary status. Data Medications: Current Inpatient Medications Medications (Trade) Dose Ordered Sig/Virgil Route Start Time Stop Time Status Last Admin Dose Admin Acetaminophen (Tylenol Tab) 650 mg Q4H PRN PO 05/28/16 14:00 06/27/16 13:59 Ondansetron HCl (Zofran Inj) 4 mg Q6H PRN IV 05/28/16 14:00 06/27/16 13:59 Ioversol (Optiray 320) 100 ml UD PRN IV 05/28/16 14:15 06/01/16 14:14 Insulin Aspart (novoLOG ASPART) SLIDING SCALE If C... ACHS SC 05/28/16 16:00 06/27/16 15:59 05/31/16 12:54 8 UNITS Glucose (Glucose 40% Gel) 15-30 GRAMS 15 GRAMS... UD PRN PO 05/28/16 14:30 06/27/16 14:29 Glucose (Glucose Chew Tab) 4-8 Tablets 4 Tabl... UD PRN PO 05/28/16 14:30 06/27/16 14:29 Dextrose (Dextrose 50% 50ML Syringe) 25-50ML OF 50% DW IV FOR... UD PRN IV 05/28/16 14:30 06/27/16 14:29 Glucagon (Glucagon Inj) 1 mg UD PRN SQ 05/28/16 14:30 06/27/16 14:29 Miscellaneous Information (Consult Glycemic Management Pharmacy) 1 ea UD N/A 05/28/16 16:19 06/27/16 16:18 Aspirin (Ecotrin Tab) 81 mg MoWeFr@0900 PO 05/29/16 09:00 06/28/16 08:59 05/31/16 08:42 81 MG Atorvastatin Calcium (Lipitor Tab) 80 mg QPM PO 05/28/16 21:00 06/27/16 20:59 05/30/16 20:57 80 MG Insulin Glargine (Lantus Solostar Pen) 45 unit BID SC 05/28/16 21:00 06/27/16 20:59 05/31/16 08:34 45 UNIT Levothyroxine Sodium (Synthroid Tab) 112 mcg QAM PO 05/29/16 09:00 06/28/16 08:59 05/31/16 08:43 112 MCG Metoprolol Succinate (Toprol Xl Tab) 25 mg BID PO 05/28/16 21:00 06/27/16 20:59 05/31/16 08:44 25 MG Prednisone (PredniSONE TAB) 20 mg Taper DAILY PO 05/29/16 09:00 06/05/16 08:59 05/31/16 08:43 20 MG Rifaximin (Xifaxan Tab) 550 mg BID PO 05/28/16 21:00 06/27/16 20:59 05/31/16 08:44 550 MG Travoprost (Travatan Z) 1 drops HS OPB 05/28/16 21:00 06/27/16 20:59 05/30/16 20:59 1 DROPS Venlafaxine HCl 100 mg 100 mg QAM PO 05/29/16 09:00 06/28/16 08:59 05/31/16 08:43 100 MG Ceftriaxone Sodium/Dextrose (Rocephin Inj/D5 50ml) 70 ml @ 100 mls/hr Q24H IV 05/28/16 17:00 06/07/16 16:59 05/30/16 17:00 100 MLS/HR Ipratropium [place] (Atrovent 0.02% 0.5MG/2.5ML Neb) 0.5 mg Q6R INH 05/30/16 03:00 06/29/16 02:59 05/31/16 14:29 0.5 MG Levalbuterol (Xopenex 1.25MG/ 0.5ML Neb) 1.25 mg Q6R INH 05/30/16 03:00 06/29/16 02:59 05/31/16 14:29 1.25 MG Ipratropium [place] (Atrovent 0.02% 0.5MG/2.5ML Neb) 0.5 mg Q4H PRN INH 05/29/16 21:45 06/28/16 21:44 Levalbuterol 1.25 mg Q4H PRN INH 05/29/16 21:45 06/28/16 21:44 Lactulose/ Raspberry (Chronulac Syrup/ Raspberry Syrup) TID PO 05/30/16 14:00 06/29/16 13:59 05/31/16 08:39 15 ML Miscellaneous (Unit Dose Compound) 1 ea TID PO 05/31/16 09:00 06/30/16 08:59 05/31/16 08:45 1 EA Albumin Human (Albumin 25%) 25 gm BID@0900,0930,2100,2130 IV 05/31/16 11:00 06/03/16 10:59 05/31/16 11:23 25 GM I & O: 24-Hour Column 05/31/16 07:59 Intake Total 1111 ml Output Total 1150 ml Balance -39 ml Vital Signs: Date Time Temp Pulse Resp B/P Pulse Ox O2 Delivery O2 Flow Rate FiO2 05/31/16 16:00 Nasal Cannula 2.0 05/31/16 15:10 36.6 98 20 127/55 96 Nasal Cannula 2.0 05/31/16 14:30 94 18 97 Nasal Cannula 3.0 05/31/16 13:46 36.4 98 20 162/73 94 Nasal Cannula 2.0 05/31/16 12:49 91 Nasal Cannula 2.0 05/31/16 12:45 36.7 100 20 136/61 87 Room Air 05/31/16 12:00 Nasal Cannula 2.0 05/31/16 11:21 36.2 100 20 161/67 90 Nasal Cannula 2.0 05/31/16 08:00 Nasal Cannula 2.0 05/31/16 07:52 36.5 103 18 162/74 95 Nasal Cannula 3.0 05/31/16 07:38 97 18 97 Nasal Cannula 3.0 05/31/16 05:19 36.3 105 18 144/62 96 3.0 05/31/16 04:00 Nasal Cannula 2.0 05/31/16 03:48 102 18 96 Nasal Cannula 2.0 05/31/16 00:22 36.5 102 18 150/71 94 Nasal Cannula 2.0 05/31/16 00:20 86 Room Air 05/31/16 00:00 Room Air 05/30/16 23:40 36.7 110 18 161/69 90 Room Air 05/30/16 23:19 36.5 110 18 150/68 90 Room Air 05/30/16 22:15 36.9 110 22 162/66 92 Room Air 05/30/16 20:15 102 18 95 Room Air 05/30/16 20:15 36.6 106 20 162/75 100 Room Air 05/30/16 20:00 93 Nasal Cannula 2.0 05/30/16 20:00 36.6 96 20 148/63 91 Room Air 05/30/16 19:40 36.7 104 20 146/71 91 Room Air Laboratory Results: Last 24 Hours Test 05/30/16 20:11 05/31/16 06:27 05/31/16 07:39 05/31/16 11:41 Bedside Glucose 255 mg/dl 148 mg/dl 132 mg/dl White Blood Count 11.77 K/uL Red Blood Count 3.18 M/uL Hemoglobin 9.2 g/dL Hematocrit 29.0 % Mean Corpuscular Volume 91.2 fL Mean Corpuscular Hemoglobin 28.9 pg Mean Corpuscular Hemoglobin Concent 31.7 g/dl Platelet Count 339 K/uL Mean Platelet Volume 9.1 fL Neutrophils (%) (Auto) 76.5 % Lymphocytes (%) (Auto) 8.6 % Monocytes (%) (Auto) 14.4 % Eosinophils (%) (Auto) 0.3 % Basophils (%) (Auto) 0.0 % Neutrophils # (Auto) 9.02 K/uL Lymphocytes # (Auto) 1.01 K/uL Monocytes # (Auto) 1.69 K/uL Eosinophils # (Auto) 0.03 K/uL Basophils # (Auto) 0.00 K/uL RDW Standard Deviation 50.7 fL RDW Coefficient of Variation 15.1 % Immature Granulocyte % (Auto) 0.2 % Immature Granulocyte # (Auto) 0.02 K/uL Sodium Level 140 mmol/L Potassium Level 4.3 mmol/L Chloride Level 102 mmol/L Carbon Dioxide Level 30 mmol/L Anion Gap 8.0 mmol/L Blood Urea Nitrogen 38 mg/dl Creatinine 1.60 mg/dl Est Creatinine Clear Calc Drug Dose 38.1 ml/min Estimated GFR () 36.7 Estimated GFR (Non- 31.6 BUN/Creatinine Ratio 23.6 Random Glucose 149 mg/dl Calcium Level 8.9 mg/dl Total Bilirubin 0.6 mg/dl Aspartate Amino Transf (AST/SGOT) 30 U/L Alanine Aminotransferase (ALT/SGPT) 34 U/L Alkaline Phosphatase 120 U/L Total Protein 7.2 gm/dl Albumin 3.6 gm/dl Globulin 3.6 gm/dl Albumin/Globulin Ratio 1.0 Test 05/31/16 16:13 Bedside Glucose 179 mg/dl
[2016-05-31] MEDS: CEFTRIAXONE SOD INJ 2,000 MG in DEXTROSE 5% 50ML 50 ML IV SCH (17:24)
[2016-05-31] MEDS: ATORVASTATIN 40 MG TAB PO SCH (21:08)
[2016-05-31] MEDS: TRAVOPROST Z 0.004% OPH SOLN 2.5 ML BTL OPB SCH (21:09)
--- NOTE | 2016-05-31 22:55 | NEPHROLOGY CONSULTATION ---
DATE OF CONSULTATION: 05/31/2016 ATTENDING OF RECORD: Dr. Elen Foster. REASON FOR CONSULTATION: NESTOR. HISTORY OF PRESENT ILLNESS: This is a 75-year-old female, who presented with progressively worsening shortness of breath with increasing abdominal distention and lower extremity swelling. The patient was off of her Lasix for a couple weeks prior to coming into the hospital. The patient also has nonalcoholic steatohepatitis and was not taking her lactulose appropriately. She was becoming more confused and fluid overloaded. The patient got restarted on her lactulose as well as Lasix and was given 40 mg IV b.i.d. on the as well as on the . The patient's weight was 105 kilograms on the and the patient is now down to 104 kilograms. The patient diuresed appropriately, about negative 2 liters the first 2 days; however, her creatinine went from 1.2 on the to 1.6 on the , up to 1.9 on the . Diuretics were held and the patient was given albumin 25 grams IV b.i.d. and also was started on antibiotics for possible SBP. The patient had an echo done, which showed a hyperdynamic left ventricle with an EF greater than 70%, moderate-sized left pleural effusion, no pericardial effusion, mild aortic sclerosis, mild concentric LVH. Pulmonary evaluated the patient for shortness of breath and related it, most likely, to her chronic liver disease with portal hypertension with severe ascites, causing a left-sided pleural effusion and did not think a thoracentesis at this time would be appropriate and patient's shortness of breath did improve after the paracentesis. The patient's creatinine in November to December of 2014 ranged between the 1.4 to 1.7 range; however, creatinine in February of last year was 1.1 and in May of this year was 1. REVIEW OF SYSTEMS: Chronic shortness of breath, which has been progressively worsening and has improved since being here in the hospital. Positive nausea and vomiting, which has also improved. No chest pain. No rash or itching. Positive fatigue. No significant weight loss, weight gain; worsening swelling, which has also improved. No dysuria or hematuria. Positive chronic back pain. All other review of systems, otherwise, negative. 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 PAST SURGICAL HISTORY: Bladder tumor excision, hysterectomy. FAMILY HISTORY: Significant for mother with ovarian cancer. SOCIAL HISTORY: Former smoker and no drugs, no alcohol. She is and lives at home with her . CURRENT MEDICATIONS: Albumin 25 grams IV b.i.d. as well as 12.5 grams IV b.i.d. for a total of 37.5 grams IV b.i.d., aspirin 81 mg Mondays, Wednesdays, and Fridays, Lipitor 80 mg at night, ceftriaxone 2 grams IV daily, lactulose p.o. t.i.d., inhalers, Toprol-XL 25 mg p.o. b.i.d., levothyroxine 112 mcg daily, rifaximin 550 mg p.o. b.i.d., prednisone 20 mg p.o. daily, Effexor 150 mg p.o. daily and eyedrops. PHYSICAL EXAMINATION: VITAL SIGNS: Temperature 36.5, pulse 103, respiratory rate 18, blood pressure 156/72 and satting 95% on 2 liters. GENERAL: Awake, alert, oriented x3. EYES: No scleral icterus. ENT: Moist mucous membranes. NECK: Supple. PULMONARY: Decreased breath sounds at the right base. CARDIAC: Mildly tachy. ABDOMEN: Bowel sounds positive, soft, mildly distended. EXTREMITIES: +1 edema. NEUROLOGICALLY: Nonfocal. DERMATOLOGIC: No rash or ulcers noted. LABORATORY DATA: Sodium is 140, potassium is 4.3, chloride is 102, bicarb is 30, BUN is 38, creatinine is 1.6, glucose is 149. AST 30, ALT 34, alkaline phosphatase 120, T-bili 0.6, calcium is 8.9, albumin is 3.6. White count is 11, H\T\H 9.2 and 29, platelet count is 339. INR is 1. Urine random sodium is 45. Influenza negative. C. diff. negative. Blood cultures negative. Urine cultures negative. Last chest x-ray on the showed unchanging left pleural effusion as well as congestive heart failure, which is stable. There was a CTA of the pulmonary arteries, which showed underlying mild congestive failure. No evidence for PE as well as left pleural effusion. IMPRESSION AND PLAN: Acute kidney injury with a creatinine of 1.2 on admission. Previous labs checked in February of last year as well as April of this year was around the 1.1 to 1.2 range. The patient did receive a contrast with the CTA on the as well as aggressive IV diuresis, which was appropriate; however, creatinine did worsen from 1.2 to 1.9 in 2 days. Diuretics have been on hold, giving albumin. Patient's breathing is stable with some mild basilar rales, worse on the right base. 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 Previous hospitalizations have shown 1.4 to 1.7 range; however, that was in the setting of the hospitalization. Recently checked previous creatinines have been 1.1 to 1.2 range. I would like to continue to hold the diuretics for now, since breathing is stable and continue the albumin as well as antibiotics for a possible SBP. I do not feel that the patient has hepatorenal syndrome, given the urine sodium of greater than 45. I feel this is most likely a contrast-induced nephrotoxicity in the setting of diuresis and I am hopeful that the creatinine will eventually improve back down to baseline. When it does, would restart Lasix and spironolactone at low doses and follow the kidney function closely. The patient came in with a noncompliance with her lactulose as well as with her diuretics. However, she states that she is going to listen this time and take her medications appropriately. I would like to hold on getting a renal ultrasound, given the abdominal pelvis CT with IV contrast, which did not show any significant hydronephrosis or obstruction to the kidneys. For now, continue to hold diuretics as tolerated and once the creatinine is back down to baseline of 1.2, restart spironolactone and Lasix at low doses and follow kidney function trend closely, trying to optimize volume status as appropriate. I appreciate the consultation. SHARMILA
[2016-06-01] VITALS (9 sets, daily range): BP systolic 147–190; BP diastolic 61–73; PULSE 87–106; TEMP 36.5–37.1; O2SAT 90–99
[2016-06-01] MEDS: IPRATROPIUM BROMIDE NEB SOLN 0.02% 2.5 ML VIAL INH SCH ×4 (02:39→19:20)
[2016-06-01] MEDS: LEVALBUTEROL 1.25MG/0.5ML NEB INH SCH ×4 (02:39→19:20)
[2016-06-01 05:58] LABS: HEMATOCRIT 28.7 % (37-47); MEAN CELL VOLUME 89.7 fL (80-100); MEAN CORPUSCULAR HEMOGLOBIN 28.4 pg (25-34); MEAN CORPUSCULAR HGB CONC 31.7 g/dl (32-36); MEAN PLATELET VOLUME 9.2 fL (7.4-10.4); PLATELET COUNT 325 K/uL (130-400); WHITE BLOOD COUNT 12.71 K/uL (4.8-10.8)
[2016-06-01 06:32] LABS: BUN/CREATININE RATIO 29.8 (10-20); CALCIUM 8.7 mg/dl (8.5-10.1); CREATININE 1.3 mg/dl (0.60-1.20); POTASSIUM 4.4 mmol/L (3.5-5.1)
[2016-06-01 06:35] LABS: ALB/GLOB RATIO 1.1 (0.9-2)
[2016-06-01] MEDS: LACTULOSE 30 GM PO SCH ×4 (08:18→14:00)
[2016-06-01] MEDS: RASPBERRY PO SCH ×4 (08:18→14:00)
[2016-06-01] MEDS: UNIT DOSE COMPOUND PO SCH ×2 (08:19→14:00)
[2016-06-01] MEDS: ALBUMIN HUMAN 25% 12.5 GM/50 ML VIAL IV SCH (08:24)
[2016-06-01] MEDS: VENLAFAXINE HCL 50 MG TAB PO SCH (08:35)
--- NOTE | 2016-06-01 08:36 | Gastroenterology Progress Note ---
Progress Note Date of Service: Jun 01, 2016 Subjective Pt evaluation today including: conversation w/ patient, physical exam, chart review, lab review Ms. Coy was seen and examined this morning. She is feeling much worse. She reports that she declined from a respiratory standpoint over night. Respiratory: Notes that yesterday she started with worsening SOB - she is now SOB during conversation. There is a productive cough with green and blood tinged sputum. She reports that she feels too weak and SOB to sit up in bed or move to chair. GI: Bilateral lower quadrant abdominal pain that is cramping. Does not radiate. Increase gas and sensation of distention. Reports one BM this morning, no black/ bloody stools. + gas since BM. Nauseous but no vomiting. Review of Systems Constitutional: No chills, No fever Respiratory: + cough, + shortness of breath Cardiac: No chest pain, No edema Abdomen: + nausea, + pain (cramping, bilat lower quadrant), No GI bleeding, No constipation, No diarrhea, No vomiting Medications Current Inpatient Medications Medications (Trade) Dose Ordered Sig/Virgil Route Start Time Stop Time Status Last Admin Dose Admin Acetaminophen (Tylenol Tab) 650 mg Q4H PRN PO 05/28/16 14:00 06/27/16 13:59 Ondansetron HCl (Zofran Inj) 4 mg Q6H PRN IV 05/28/16 14:00 06/27/16 13:59 Ioversol (Optiray 320) 100 ml UD PRN IV 05/28/16 14:15 06/01/16 14:14 Insulin Aspart (novoLOG ASPART) SLIDING SCALE If C... ACHS SC 05/28/16 16:00 06/27/16 15:59 05/31/16 21:14 6 UNITS Glucose (Glucose 40% Gel) 15-30 GRAMS 15 GRAMS... UD PRN PO 05/28/16 14:30 06/27/16 14:29 Glucose (Glucose Chew Tab) 4-8 Tablets 4 Tabl... UD PRN PO 05/28/16 14:30 06/27/16 14:29 Dextrose (Dextrose 50% 50ML Syringe) 25-50ML OF 50% DW IV FOR... UD PRN IV 05/28/16 14:30 06/27/16 14:29 Glucagon (Glucagon Inj) 1 mg UD PRN SQ 05/28/16 14:30 06/27/16 14:29 Miscellaneous Information (Consult Glycemic Management Pharmacy) 1 ea UD N/A 05/28/16 16:19 06/27/16 16:18 Aspirin (Ecotrin Tab) 81 mg MoWeFr@0900 PO 05/29/16 09:00 06/28/16 08:59 05/31/16 08:42 81 MG Atorvastatin Calcium (Lipitor Tab) 80 mg QPM PO 05/28/16 21:00 06/27/16 20:59 05/31/16 21:08 80 MG Insulin Glargine (Lantus Solostar Pen) 45 unit BID SC 05/28/16 21:00 06/27/16 20:59 05/31/16 21:16 45 UNIT Levothyroxine Sodium (Synthroid Tab) 112 mcg QAM PO 05/29/16 09:00 06/28/16 08:59 05/31/16 08:43 112 MCG Metoprolol Succinate (Toprol Xl Tab) 25 mg BID PO 05/28/16 21:00 06/27/16 20:59 05/31/16 21:09 25 MG Prednisone (PredniSONE TAB) 20 mg Taper DAILY PO 05/29/16 09:00 06/05/16 08:59 05/31/16 08:43 20 MG Rifaximin (Xifaxan Tab) 550 mg BID PO 05/28/16 21:00 06/27/16 20:59 05/31/16 21:08 550 MG Travoprost (Travatan Z) 1 drops HS OPB 05/28/16 21:00 06/27/16 20:59 05/31/16 21:09 1 DROPS Venlafaxine HCl 100 mg 100 mg QAM PO 05/29/16 09:00 06/28/16 08:59 05/31/16 08:43 100 MG Ceftriaxone Sodium/Dextrose (Rocephin Inj/D5 50ml) 70 ml @ 100 mls/hr Q24H IV 05/28/16 17:00 06/07/16 16:59 05/31/16 17:24 100 MLS/HR Ipratropium [place] (Atrovent 0.02% 0.5MG/2.5ML Neb) 0.5 mg Q6R INH 05/30/16 03:00 06/29/16 02:59 06/01/16 07:10 0.5 MG Levalbuterol (Xopenex 1.25MG/ 0.5ML Neb) 1.25 mg Q6R INH 05/30/16 03:00 06/29/16 02:59 06/01/16 07:10 1.25 MG Ipratropium [place] (Atrovent 0.02% 0.5MG/2.5ML Neb) 0.5 mg Q4H PRN INH 05/29/16 21:45 06/28/16 21:44 Levalbuterol 1.25 mg Q4H PRN INH 05/29/16 21:45 06/28/16 21:44 Lactulose/ Raspberry (Chronulac Syrup/ Raspberry Syrup) TID PO 05/30/16 14:00 06/29/16 13:59 05/31/16 21:07 15 ML Miscellaneous (Unit Dose Compound) 1 ea TID PO 05/31/16 09:00 06/30/16 08:59 05/31/16 21:07 1 EA Albumin Human (Albumin 25%) 12.5 gm BID@0900,0930,2100,2130 IV 05/31/16 21:00 06/03/16 10:59 05/31/16 22:28 12.5 GM Objective Vital Signs Date Time Temp Pulse Resp B/P Pulse Ox O2 Delivery O2 Flow Rate FiO2 06/01/16 08:02 36.5 98 18 158/61 93 Nasal Cannula 2.0 06/01/16 07:11 92 16 94 Nasal Cannula 2.0 06/01/16 04:05 Nasal Cannula 2.0 06/01/16 04:00 36.6 98 20 147/65 93 2.0 06/01/16 02:39 101 16 91 Nasal Cannula 2.0 06/01/16 00:05 Nasal Cannula 2.0 05/31/16 23:47 36.7 96 20 154/70 95 2.0 05/31/16 22:30 36.5 97 16 150/61 96 Nasal Cannula 2.0 05/31/16 20:58 36.5 103 18 156/72 95 2.0 05/31/16 20:05 Nasal Cannula 2.0 05/31/16 19:25 36.6 103 18 157/63 91 Room Air 05/31/16 18:59 98 16 97 Nasal Cannula 2.0 05/31/16 16:00 Nasal Cannula 2.0 05/31/16 15:10 36.6 98 20 127/55 96 Nasal Cannula 2.0 05/31/16 14:30 94 18 97 Nasal Cannula 3.0 05/31/16 13:46 36.4 98 20 162/73 94 Nasal Cannula 2.0 05/31/16 12:49 91 Nasal Cannula 2.0 05/31/16 12:45 36.7 100 20 136/61 87 Room Air 05/31/16 12:00 Nasal Cannula 2.0 05/31/16 11:21 36.2 100 20 161/67 90 Nasal Cannula 2.0 Physical Exam General Appearance: + mild distress Eyes: PERRL ENT: hearing grossly normal Neck: supple, trachea midline Respiratory/Chest: no accessory muscle use, + decreased breath sounds, + crackles (expiratory R>L), + pertinent finding (she is wearing O2 and is SOB during conversation) Cardiovascular: regular rate, rhythm, no gallop, no JVD, no murmur Abdomen: normal bowel sounds, soft, no organomegaly, no pulsatile mass, + tenderness (lower quadrant tenderness, crampy, pain is not worse with palpation) Neurologic/Psych: alert, normal mood/affect, oriented x 3 Skin: normal color, no jaundice, warm/dry, no rash Laboratory Results Last 24 Hours Test 05/31/16 11:41 05/31/16 16:13 05/31/16 20:03 06/01/16 05:14 Bedside Glucose 132 mg/dl 179 mg/dl 240 mg/dl White Blood Count 12.71 K/uL Red Blood Count 3.20 M/uL Hemoglobin 9.1 g/dL Hematocrit 28.7 % Mean Corpuscular Volume 89.7 fL Mean Corpuscular Hemoglobin 28.4 pg Mean Corpuscular Hemoglobin Concent 31.7 g/dl RDW Standard Deviation 49.7 fL RDW Coefficient of Variation 15.1 % Platelet Count 325 K/uL Mean Platelet Volume 9.2 fL Sodium Level 141 mmol/L Potassium Level 4.4 mmol/L Chloride Level 103 mmol/L Carbon Dioxide Level 30 mmol/L Anion Gap 8.0 mmol/L Blood Urea Nitrogen 39 mg/dl Creatinine 1.30 mg/dl Est Creatinine Clear Calc Drug Dose 46.9 ml/min Estimated GFR () 47.1 Estimated GFR (Non- 40.7 BUN/Creatinine Ratio 29.8 Random Glucose 208 mg/dl Calcium Level 8.7 mg/dl Total Bilirubin 0.6 mg/dl Aspartate Amino Transf (AST/SGOT) 26 U/L Alanine Aminotransferase (ALT/SGPT) 33 U/L Alkaline Phosphatase 113 U/L Total Protein 7.1 gm/dl Albumin 3.7 gm/dl Globulin 3.4 gm/dl Albumin/Globulin Ratio 1.1 Test 06/01/16 07:51 Bedside Glucose 204 mg/dl Assessment and Plan Patient is a 75 year old female admitted with worsening SOB and confusion. At the time of admission, she was not taking her diuretics or lactulose and her ammonia was elevated to 54. She was started on diuretics and albumin. Diuretics were held for 2 days for worsening kidney function. Nephrology gave OK to start low dose diuretics as creatinine was closer to her baseline of 1.2. Chest XR Abd US for ascites Zofran PRN nausea Continue empiric coverage for SBP - on day 4 of 5 day course of Rocephin 2 g daily. Can complete treatment with PO cipro 500 once daily if patient is discharged. stop lactulose xifaxan 550 BID dulcolax 5 mg now diet as tolerated ?start low dose lasix/aldactone PO pending results of imaging stool negative for c.diff Attg addendum: I interviewed and examined pt, reviewed chart and labs. Creat improved, uop seems copious on current dose of diuretics. Pt with abd cramping and increased abd distention, likely related to lactulose -- dulce hold today, use dulcolax, plan to resume lactulose in 2 days at lower dose. Spoke to pulm - they are planning a thoracentesis; anticipate effusion recurrence, although hopefully diuretic therapy an minimize this.
[2016-06-01] MEDS: LEVOTHYROXINE 112 MCG TAB PO SCH (08:37)
[2016-06-01] MEDS: METOPROLOL SUCC 25MG EXT REL TAB PO SCH ×2 (08:38→20:25)
[2016-06-01] MEDS: RIFAXIMIN TAB 550 MG TAB PO SCH ×2 (08:38→20:25)
[2016-06-01] MEDS: INSULIN GLARGINE SOLOSTAR 100 UNITS/ML 3 ML PEN SC SCH ×2 (08:41→20:28)
[2016-06-01] MEDS: INSULIN ASPART 100 UNITS/ML 3 ML PEN SC SCH ×4 (08:41→20:27)
[2016-06-01] MEDS ORDERED: SPIRONOLACTONE 25 MG TAB PO ONE (09:15)
--- NOTE | 2016-06-01 09:29 | Nephrology Progress Note ---
Nephrology Progress Note Date of Service: Jun 01, 2016. Subjective short of breath today w/ anorexia, low BL ant abdominal cramping. +BM; no cough ; feels fluid sticks in low neck/throat. unsteady on feet Objective Date Time Temp Pulse Resp B/P Pulse Ox O2 Delivery O2 Flow Rate FiO2 06/01/16 08:02 36.5 98 18 158/61 93 Nasal Cannula 2.0 06/01/16 07:11 92 16 94 Nasal Cannula 2.0 06/01/16 04:05 Nasal Cannula 2.0 06/01/16 04:00 36.6 98 20 147/65 93 2.0 06/01/16 02:39 101 16 91 Nasal Cannula 2.0 06/01/16 00:05 Nasal Cannula 2.0 05/31/16 23:47 36.7 96 20 154/70 95 2.0 05/31/16 22:30 36.5 97 16 150/61 96 Nasal Cannula 2.0 05/31/16 20:58 36.5 103 18 156/72 95 2.0 05/31/16 20:05 Nasal Cannula 2.0 05/31/16 19:25 36.6 103 18 157/63 91 Room Air 05/31/16 18:59 98 16 97 Nasal Cannula 2.0 05/31/16 16:00 Nasal Cannula 2.0 05/31/16 15:10 36.6 98 20 127/55 96 Nasal Cannula 2.0 05/31/16 14:30 94 18 97 Nasal Cannula 3.0 05/31/16 13:46 36.4 98 20 162/73 94 Nasal Cannula 2.0 05/31/16 12:49 91 Nasal Cannula 2.0 05/31/16 12:45 36.7 100 20 136/61 87 Room Air 05/31/16 12:00 Nasal Cannula 2.0 05/31/16 11:21 36.2 100 20 161/67 90 Nasal Cannula 2.0 Physical Exam: GENERAL: Awake, alert, oriented x3. on 02NC; dyspneic w/ speech EYES: No scleral icterus. ENT: Moist mucous membranes. NECK: Supple. PULMONARY: moves almost no air on lung exam w/ prolonged expiration and exp wheezes CARDIAC: regularly spaced beats in 90s ABDOMEN: Bowel sounds positive though , taut, mildly distended. EXTREMITIES: +1 edema BLe indurated NEUROLOGICALLY: marquez, fluent speech DERMATOLOGIC: No rash or ulcers noted. reddened/ indurated venous stasis changes BL ant shins Current Inpatient Medications Medications (Trade) Dose Ordered Sig/Virgil Route Start Time Stop Time Status Last Admin Dose Admin Acetaminophen (Tylenol Tab) 650 mg Q4H PRN PO 05/28/16 14:00 06/27/16 13:59 Ondansetron HCl (Zofran Inj) 4 mg Q6H PRN IV 05/28/16 14:00 06/27/16 13:59 06/01/16 08:31 4 MG Ioversol (Optiray 320) 100 ml UD PRN IV 05/28/16 14:15 06/01/16 14:14 Insulin Aspart (novoLOG ASPART) SLIDING SCALE If C... ACHS SC 05/28/16 16:00 06/27/16 15:59 06/01/16 08:41 3 UNITS Glucose (Glucose 40% Gel) 15-30 GRAMS 15 GRAMS... UD PRN PO 05/28/16 14:30 06/27/16 14:29 Glucose (Glucose Chew Tab) 4-8 Tablets 4 Tabl... UD PRN PO 05/28/16 14:30 06/27/16 14:29 Dextrose (Dextrose 50% 50ML Syringe) 25-50ML OF 50% DW IV FOR... UD PRN IV 05/28/16 14:30 06/27/16 14:29 Glucagon (Glucagon Inj) 1 mg UD PRN SQ 05/28/16 14:30 06/27/16 14:29 Miscellaneous Information (Consult Glycemic Management Pharmacy) 1 ea UD N/A 05/28/16 16:19 06/27/16 16:18 Aspirin (Ecotrin Tab) 81 mg MoWeFr@0900 PO 05/29/16 09:00 06/28/16 08:59 05/31/16 08:42 81 MG Atorvastatin Calcium (Lipitor Tab) 80 mg QPM PO 05/28/16 21:00 06/27/16 20:59 05/31/16 21:08 80 MG Insulin Glargine (Lantus Solostar Pen) 45 unit BID SC 05/28/16 21:00 06/27/16 20:59 06/01/16 08:41 45 UNIT Levothyroxine Sodium (Synthroid Tab) 112 mcg QAM PO 05/29/16 09:00 06/28/16 08:59 06/01/16 08:37 112 MCG Metoprolol Succinate (Toprol Xl Tab) 25 mg BID PO 05/28/16 21:00 06/27/16 20:59 06/01/16 08:38 25 MG Prednisone (PredniSONE TAB) 20 mg Taper DAILY PO 05/29/16 09:00 06/05/16 08:59 06/01/16 08:36 20 MG Rifaximin (Xifaxan Tab) 550 mg BID PO 05/28/16 21:00 06/27/16 20:59 06/01/16 08:38 550 MG Travoprost (Travatan Z) 1 drops HS OPB 05/28/16 21:00 06/27/16 20:59 05/31/16 21:09 1 DROPS Venlafaxine HCl 100 mg 100 mg QAM PO 05/29/16 09:00 06/28/16 08:59 06/01/16 08:35 100 MG Ceftriaxone Sodium/Dextrose (Rocephin Inj/D5 50ml) 70 ml @ 100 mls/hr Q24H IV 05/28/16 17:00 06/07/16 16:59 05/31/16 17:24 100 MLS/HR Ipratropium Hall (Atrovent 0.02% 0.5MG/2.5ML Neb) 0.5 mg Q6R INH 05/30/16 03:00 06/29/16 02:59 06/01/16 07:10 0.5 MG Levalbuterol (Xopenex 1.25MG/ 0.5ML Neb) 1.25 mg Q6R INH 05/30/16 03:00 06/29/16 02:59 06/01/16 07:10 1.25 MG Ipratropium Hall (Atrovent 0.02% 0.5MG/2.5ML Neb) 0.5 mg Q4H PRN INH 05/29/16 21:45 06/28/16 21:44 Levalbuterol 1.25 mg Q4H PRN INH 05/29/16 21:45 06/28/16 21:44 Lactulose/ Raspberry (Chronulac Syrup/ Raspberry Syrup) TID PO 05/30/16 14:00 06/29/16 13:59 05/31/16 21:07 15 ML Miscellaneous (Unit Dose Compound) 1 ea TID PO 05/31/16 09:00 06/30/16 08:59 05/31/16 21:07 1 EA Albumin Human (Albumin 25%) 12.5 gm BID@0900,0930,2100,2130 IV 05/31/16 21:00 06/03/16 10:59 06/01/16 08:24 12.5 GM Last 24 Hours Test 05/31/16 11:41 05/31/16 16:13 05/31/16 20:03 06/01/16 05:14 Bedside Glucose 132 mg/dl 179 mg/dl 240 mg/dl White Blood Count 12.71 K/uL Red Blood Count 3.20 M/uL Hemoglobin 9.1 g/dL Hematocrit 28.7 % Mean Corpuscular Volume 89.7 fL Mean Corpuscular Hemoglobin 28.4 pg Mean Corpuscular Hemoglobin Concent 31.7 g/dl RDW Standard Deviation 49.7 fL RDW Coefficient of Variation 15.1 % Platelet Count 325 K/uL Mean Platelet Volume 9.2 fL Sodium Level 141 mmol/L Potassium Level 4.4 mmol/L Chloride Level 103 mmol/L Carbon Dioxide Level 30 mmol/L Anion Gap 8.0 mmol/L Blood Urea Nitrogen 39 mg/dl Creatinine 1.30 mg/dl Est Creatinine Clear Calc Drug Dose 46.9 ml/min Estimated GFR () 47.1 Estimated GFR (Non- 40.7 BUN/Creatinine Ratio 29.8 Random Glucose 208 mg/dl Calcium Level 8.7 mg/dl Total Bilirubin 0.6 mg/dl Aspartate Amino Transf (AST/SGOT) 26 U/L Alanine Aminotransferase (ALT/SGPT) 33 U/L Alkaline Phosphatase 113 U/L Total Protein 7.1 gm/dl Albumin 3.7 gm/dl Globulin 3.4 gm/dl Albumin/Globulin Ratio 1.1 Test 06/01/16 07:51 Bedside Glucose 204 mg/dl Date/Time Source Procedure Growth Status 05/31/16 11:30 Stool C.difficile Toxin B Gene (PCR) - Final No C. difficile toxin B gene detected Complete 05/31/16 11:30 Stool Shiga Toxin Test Pending Received 05/31/16 11:30 Stool Stool Culture Pending Received Assessment & Plan 75 y/o F w/ NAFLD, a fib, diastolic HF, DM, CAD, past bladder/endometrial CA admitted on 05/28 w/ acute hypoxic respiratory failure and mild hepatic encephalopathy. She developed contrast induced nephropathy in the setting of obligate diuresis with peak creatinine 2.2 on 05/29. Acute kidney injury with a creatinine of 1.2 on admission and baseline 1.1-1.2 as outpt, 1.4-1.7 range as inpt. Renal function improved after w/holding diuretics and w/ gentle albumin supplementation but now volume overload more symptomatic. not hepatorenal syndrome. Multifactorial volume overload and recurrent acute hypoxic respiratory failure from pleural effusion and NAFLD, COPD. >stopped albumin >resumed 50 mg daily aldactone, starting this am >gave IV lasix 40 mg x 1 now then 20 mg IV 10/20 starting this afternoon >continue prieto for now >defer to primary service and GI on lactulose, abtx; no UTI >daily bmp -standing wts MUCH appreciated and pls continue >maintained 2 gm daily na diet; also ordered 1.5L daily fluid limit >cont strict I/O Appreciate consult; will follow with you. Care coordinated w/ Dr. Foster.
[2016-06-01] MEDS ORDERED: FUROSEMIDE INJ 40 MG in SYRINGE 0 ML IV SCH (09:30)
--- NOTE | 2016-06-01 09:58 | DIAGNOSTIC IMAGING REPORT ---
CHEST ONE VIEW PORTABLE HISTORY: worsening short of breath, eval eft pleural effusion, diminished breath sounds COMPARISON: Chest 05/30/2016. FINDINGS: No pneumothorax. Moderate pulmonary edema has slightly progressed. Trace right and moderate left pleural effusion persist. The heart remains mildly enlarged. The left shoulder prosthesis. IMPRESSION: 1. Slight progression of the moderate pulmonary edema. 2. Trace right and moderate left pleural effusions persist. Electronically signed by: Armando Dunbar M.D. 06/01/2016 9:57 AM Dictated Date/Time: 06/01/2016 9:56 AM
--- NOTE | 2016-06-01 10:21 | Pharmacy Progress Note ---
Glycemic Control: Progress Nt Date of Service Jun 01, 2016. Scope Glycemic Pharmacist consulted by Dr. Arevalo on 05/28/16 for glycemic control and to write orders per [facility] inpatient glycemic control protocol. Objective Accuchecks BSG (last 24hrs): Test 05/31/16 11:41 05/31/16 16:13 05/31/16 20:03 06/01/16 05:14 Bedside Glucose 132 mg/dl (70-90) 179 mg/dl (70-90) 240 mg/dl (70-90) Random Glucose 208 mg/dl (70-99) Test 06/01/16 07:51 Bedside Glucose 204 mg/dl (70-90) Laboratory Data (last 24hrs) Test 06/01/16 05:14 Anion Gap 8.0 mmol/L BUN/Creatinine Ratio 29.8 Blood Urea Nitrogen 39 mg/dl Creatinine 1.30 mg/dl Potassium Level 4.4 mmol/L Sodium Level 141 mmol/L White Blood Count 12.71 K/uL HbA1c: Test 05/30/16 05:56 Hemoglobin A1c 7.8 % (4.5-5.6) H Recent Pertinent Medications Outpatient Anti-diabetic Regimen: * Lantus 45 units BID, Novolog 30units AC + 20 units with snacks * A1c = 7.8 % 05/30/16 Risk Factors for Insulin Resistance: * Steroids: Steroid taper * Infection: Rocephin * IVF:Fluid restricted, Lasix IV bid * Diet: DM2/AHA/Moiz/Fluid restriction Assessment & Plan ASSESSMENT: * ADA & AACE recommend a goal blood sugar range 140-180 mg/dl for the majority of critically ill & non-critically ill patients. However, more stringent targets may be selected in individual cases. Will utilize more stringent goal range of 120-160mg/dl based on tight degree of outpatient control. 05/31/16: * 75yo T2DM female with well controlled diabetes as an outpatient per recent A1c * Pt with sustained moderate-severe hyperglycemia secondary to large dose of Solumedrol given 05/28 followed by prednisone 40mg daily. * Prednisone dose is tapering to 20mg daily, expect BSGs to improve with this step down in steroid dosing * BSGs over the past 24hrs: AM Lunch Dinner HS * 05/30: 138 250 217 265 * 05/31: 148 132 * AM fasting BSGs are in goal range indicating adequate basal insulin dosing - will continue current dosing which is c/w outpatient dosing * BSGs trend upwards throughout the day indicating more prandial coverage needed, however, prednisone dose cut in half today. Expect improvement with decreased steroids. Will empirically decrease CF/CR slightly to prevent hypo. 06/01/16: * BSG control worsened since yesterday morning. BSGs have been > 200 mg/dl since bedtime yesterday. * Adjustments were made to Novolog parameters in response to tapering down of steroids. However, it appears tighter Novolog parameters are still needed. * Continue current Lantus dosing * Of note, the pt does require much looser Novolog parameters when steroids are absent (per past admission data). PLAN FOR INPATIENT GLYCEMIC CONTROL: * Continue Basal insulin with LANTUS 45 units SQ BID * Correctional Insulin with NOVOLOG per scale ACHS or Q6hrs while NPO * Goal Range: Low 120 mg/dL - High 160 mg/dL * TIGHTEN Correction Factor: 12 mg/dL/unit * TIGHTEN Nutritional / Prandial insulin per carb ratio of 1 unit per 3.5 grams CHO consumed * Please note that the plan above was derived based on current level of insulin resistance and hospital stress. These recommendations are appropriate for inpatient admission only. Plan of care upon discharge will need to be reassessed to avoid potential outpatient hypo/hyperglycemia. Thank you.
--- NOTE | 2016-06-01 11:22 | Progress Note ---
Internal Med Progress Note Date of Service: Jun 01, 2016. Provider Documentation: SUBJECTIVE: Patient clinically deteriorated overnight- more SOB but not in distress. No worsening of cough from baseline but says able to bring up more sputum now- greenish and occasionally streak of blood which she has had in past too. Nausea + Has been having 2-3 BMs/day while on lactulose Denies any abdominal pain, nausea, vomiting, fever, chills, chest pain. Foleys in situ On oxygen 2 L OBJECTIVE: Vital Signs-as noted below Exam: General Appearance:Moderately built and nourished, no apparent distress Head: normocephalic, Atraumatic Eyes: anicteric Neck: supple Respiratory/Chest: Decreased breath sounds, few crackles, No accessory muscle use Cardiovascular: S1, S2, NSR, No murmur Abdomen/GI:Soft, Non tender, distended, Bowel sounds present Extremities/Musculoskelatal:normal inspection, 1+ B/L LE edema Neurologic/Psych:AAOX3, grossly no focal neurological deficits Lab data as noted below. ASSESSMENT & PLAN: ASSESSMENT & PLAN : ACUTE HYPOXIC RESPIRATORY FAILURE : SOB worse today MULTIFACTORIAL: LEFT PLEURAL EFFUSION/ VOLUME OVERLOAD IN SETTING OF GRAHAM / DIASTOLIC CHF / MILD COPD EXACERBATION H/O MEDICATION NON COMPLIANCE: Patient self stopped her Lasix 2 weeks ago . Pt presented with increasing shortness of breath x 1 1/2 months; 74% on RA in ED -IV lasix - Restart (was held x 2 days due to elevated creatinine)- 20 mg BID and aldactone 50mg starting now -Work up - CXR : CHF and left pleural effusion likely reactionary from GRAHAM; Last ECHO:02/2014: EF > 70% ; Leukocytosis improving: on Steroid taper started by PCP for COPD exacerbation PLAN: CXR repeated today due to worsening of SOB- Slight progression of moderate pulmonary edema, persistent left pleural effusion-moderate and small right pleural effusion US abdomen- mild ascites. Discussed with pulmonary- may consider thoracocentesis ASCITES: S/P Paracentesis ON 05/29/16- 100 CC Chylous fluid, WBC < 500 -No SBP but was on antibiotics prior to paracentesis. -IV rocephin 2 gram daily for prophylaxis x Day 4/ 5 days per GI. Continue with IV Albumin bid -Re started IV lasix/Aldactone as above today -US abdomen- reviewed. Repeat US abdomen today- Mild ascites LEFT PLEURAL EFFUSION/HYPOXIA -Possibly related to GRAHAM, but no significant ascites to justify hepato thorax ? Only 100 cc of fluid drained from paracentesis. -Per Pulmonary, no thoracentesis as protein/albumin removal with fluid would pre dispose to infection/malnutrition. However, if symptoms worsen, would consider it per discussion today. -Monitor, Try to wean off oxygen NESTOR ON CKD-IV - Improving Baseline around 1.5-1.8, now 1.30 -Re start diuretics as above. Was held x 2 days due to elevated creatinine -Monitor creatinine. Appreciate nephrology inputs ACUTE HEPATIC ENCEPHALOPATHY/GRAHAM - Mental status back to baseline, AAOX2 Pt did not take lactulose, Rifaximin secondary to fecal incontinence Ammonia levels elevated at 62 -No BM- increased lactulose to 30 gram TID (Hold today due to nausea), Continue with Rifaximin -GI following- discussed. Appreciate inputs DIARRHEA On lactulose. -KUB today- no acute abnormalities; CT ABD: as below (Mild periaortic and mesenteric adenopathy somewhat progressive from the prior study) -C diff negative, Stool studies- pending DM II Uncontrolled Last A1c: 9.9 02/2016 Continue ISS, Lantus HYPOTHYROIDISM: Continue Levothyroxine PAROXYSMAL AFIB currently in NSR; rate controlled -Continue beta moises -Not on anticoagulated due to anemia/GI bleeding DVT PROPHYLAXIS -SCDs due to hx varices, anemia, GI bleeding CODE STATUS -Full code DISPOSITION: Medical mx in progress PT/OT on board Vital Signs: Date Time Temp Pulse Resp B/P Pulse Ox O2 Delivery O2 Flow Rate FiO2 06/01/16 08:02 36.5 98 18 158/61 93 Nasal Cannula 2.0 06/01/16 07:11 92 16 94 Nasal Cannula 2.0 06/01/16 04:05 Nasal Cannula 2.0 06/01/16 04:00 36.6 98 20 147/65 93 2.0 06/01/16 02:39 101 16 91 Nasal Cannula 2.0 06/01/16 00:05 Nasal Cannula 2.0 05/31/16 23:47 36.7 96 20 154/70 95 2.0 05/31/16 22:30 36.5 97 16 150/61 96 Nasal Cannula 2.0 05/31/16 20:58 36.5 103 18 156/72 95 2.0 05/31/16 20:05 Nasal Cannula 2.0 05/31/16 19:25 36.6 103 18 157/63 91 Room Air 05/31/16 18:59 98 16 97 Nasal Cannula 2.0 05/31/16 16:00 Nasal Cannula 2.0 05/31/16 15:10 36.6 98 20 127/55 96 Nasal Cannula 2.0 05/31/16 14:30 94 18 97 Nasal Cannula 3.0 05/31/16 13:46 36.4 98 20 162/73 94 Nasal Cannula 2.0 05/31/16 12:49 91 Nasal Cannula 2.0 05/31/16 12:45 36.7 100 20 136/61 87 Room Air 05/31/16 12:00 Nasal Cannula 2.0 05/31/16 11:21 36.2 100 20 161/67 90 Nasal Cannula 2.0 Lab Results: Results Past 24 Hours Test 05/31/16 11:41 05/31/16 16:13 05/31/16 20:03 06/01/16 05:14 Range/Units Bedside Glucose 132 179 240 70-90 mg/dl White Blood Count 12.71 4.8-10.8 K/uL Red Blood Count 3.20 4.2-5.4 M/uL Hemoglobin 9.1 12.0-16.0 g/dL Hematocrit 28.7 37-47 % Mean Corpuscular Volume 89.7 80-100 fL Mean Corpuscular Hemoglobin 28.4 25-34 pg Mean Corpuscular Hemoglobin Concent 31.7 32-36 g/dl RDW Standard Deviation 49.7 36.4-46.3 fL RDW Coefficient of Variation 15.1 11.5-14.5 % Platelet Count 325 130-400 K/uL Mean Platelet Volume 9.2 7.4-10.4 fL Sodium Level 141 136-145 mmol/L Potassium Level 4.4 3.5-5.1 mmol/L Chloride Level 103 98-107 mmol/L Carbon Dioxide Level 30 21-32 mmol/L Anion Gap 8.0 3-11 mmol/L Blood Urea Nitrogen 39 7-18 mg/dl Creatinine 1.30 0.60-1.20 mg/dl Est Creatinine Clear Calc Drug Dose 46.9 ml/min Estimated GFR () 47.1 Estimated GFR (Non- 40.7 BUN/Creatinine Ratio 29.8 10-20 Random Glucose 208 70-99 mg/dl Calcium Level 8.7 8.5-10.1 mg/dl Total Bilirubin 0.6 0.2-1 mg/dl Aspartate Amino Transf (AST/SGOT) 26 15-37 U/L Alanine Aminotransferase (ALT/SGPT) 33 12-78 U/L Alkaline Phosphatase 113 45-117 U/L Total Protein 7.1 6.4-8.2 gm/dl Albumin 3.7 3.4-5.0 gm/dl Globulin 3.4 2.5-4.0 gm/dl Albumin/Globulin Ratio 1.1 0.9-2 Test 06/01/16 07:51 Range/Units Bedside Glucose 204 70-90 mg/dl Microbiology Results 05/31/16 C.difficile Toxin B Gene (PCR) - Final, Complete No C. difficile toxin B gene detected 05/31/16 Shiga Toxin Test, Received Pending 05/31/16 Stool Culture, Received Pending
--- NOTE | 2016-06-01 11:41 | DIAGNOSTIC IMAGING REPORT ---
ASCITES-ABDOMEN LIMITED ultrasound CLINICAL HISTORY: GRAHAM cirrhosis, ascites, abdominal distention COMPARISON STUDY: Abdominal ultrasound 05/28/2016. FINDINGS: Trace ascites is present. This has improved compared to the prior study. IMPRESSION: Trace ascites which has improved. Electronically signed by: Armando Dunbar M.D. 06/01/2016 11:39 AM Dictated Date/Time: 06/01/2016 11:38 AM
[2016-06-01] MEDS: FUROSEMIDE INJ 20 MG in SYRINGE 0 ML IV SCH (14:06)
[2016-06-01] MEDS ORDERED: BISACODYL 5 MG TABEC PO ONE (15:00)
--- NOTE | 2016-06-01 16:51 | DIAGNOSTIC IMAGING REPORT ---
CHEST ONE VIEW PORTABLE CLINICAL HISTORY: Chest x-ray status post thoracentesis COMPARISON STUDY: 06/01/2016 FINDINGS: The cardiac and mediastinal contours remain stable. There is improving congestive failure. There is interval decrease in the size of the left pleural effusion. There is a small left apical pneumothorax the pleural separation of 11 mm. IMPRESSION: 1. Small left-sided pneumothorax status post thoracentesis with a pleural separation of 11 mm 2. Improving congestive failure 3. Interval decrease in the size of the left pleural effusion Electronically signed by: Barry Jim M.D. 06/01/2016 4:50 PM Dictated Date/Time: 06/01/2016 4:48 PM
--- NOTE | 2016-06-01 16:59 | Procedure Note ---
Procedure Note Date of Service Jun 01, 2016. Procedure Note Procedure: Left-sided thoracentesis Indication: Chronic left-sided pleural effusion associated with GRAHAM, patient was shortness of breath Preoperative diagnosis: Left-sided pleural effusion chronic Postoperative diagnosis: Left-sided pleural effusion/chylous effusion Consent: Obtained to the patient placed in the chart Analgesia: Lidocaine 1% subcutaneous: 8 cc Procedure: Patient was in an upright position and ultrasound was used to hallie the left sided effusion. Patient was draped and prepped in a sterile fashion. Lidocaine introducing/ finder needle was used for anesthesia as well as pleural fluid evaluation. After this a 5 mm incision was made approximately left posterior, eighth intercostal space. The thoracentesis needle was easily slid into position with good pleural fluid removed. The pleural fluid was noted be chylous in nature approximately 1.4 L was removed. The last 30 cc were removed were notably a air. Postprocedural ultrasound showed no signs of pneumothorax. Chest x-ray: Pending
[2016-06-01] MEDS: CEFTRIAXONE SOD INJ 2,000 MG in DEXTROSE 5% 50ML 50 ML IV SCH (18:02)
[2016-06-01 18:40] LABS: PLEURAL FLUID APPEARANCE TURBID; PLEURAL FLUID COLOR BROWN; PLEURAL FLUID SOURCE PLEURAL FLUID
[2016-06-01 18:41] LABS: PLEURAL FLUID MONONUC RELAT 86.7 %; PLEURAL FLUID POLYNUC 13.3 %; PLEURAL FLUID WBC (A) 390 /uL
[2016-06-01] MEDS: TRAVOPROST Z 0.004% OPH SOLN 2.5 ML BTL OPB SCH (20:24)
[2016-06-01] MEDS: ATORVASTATIN 40 MG TAB PO SCH (20:25)
[2016-06-02] VITALS (11 sets, daily range): BP systolic 117–164; BP diastolic 55–75; PULSE 74–97; TEMP 36.3–36.7; O2SAT 82–100
[2016-06-02] MEDS: LEVALBUTEROL 1.25MG/0.5ML NEB INH SCH ×4 (02:00→20:05)
[2016-06-02] MEDS: IPRATROPIUM BROMIDE NEB SOLN 0.02% 2.5 ML VIAL INH SCH ×4 (02:00→20:05)
[2016-06-02 06:04] LABS: HEMATOCRIT 32.1 % (37-47); MEAN CELL VOLUME 91.5 fL (80-100); MEAN CORPUSCULAR HEMOGLOBIN 28.5 pg (25-34); MEAN CORPUSCULAR HGB CONC 31.2 g/dl (32-36); MEAN PLATELET VOLUME 9.3 fL (7.4-10.4); PLATELET COUNT 332 K/uL (130-400); RED BLOOD COUNT 3.51 M/uL (4.2-5.4); WHITE BLOOD COUNT 15.26 K/uL (4.8-10.8)
[2016-06-02] MEDS: FUROSEMIDE INJ 20 MG in SYRINGE 0 ML IV SCH ×2 (06:18→15:15)
[2016-06-02 06:32] LABS: BUN/CREATININE RATIO 33.1 (10-20); CALCIUM 8.7 mg/dl (8.5-10.1); CREATININE 1.1 mg/dl (0.60-1.20)
--- NOTE | 2016-06-02 08:36 | DIAGNOSTIC IMAGING REPORT ---
CHEST CT WITHOUT CONTRAST CT DOSE: 630.87 mGycm HISTORY: Pneumothorax PTX TECHNIQUE: Multiaxial CT images of the chest were performed without contrast. COMPARISON: 05/28/2016 FINDINGS: Left-sided pneumothorax. Maximum pleural separation anterior to posterior dimension 2.4 cm. Left pleural effusion and left lower lobe atelectatic change generally similar. Trace amount of subcutaneous emphysema laterally Left base. Upper abdominal ascites. Mildly progressive right pleural effusion with interval development of partial right lower lobe atelectatic change. Several mediastinal and hilar nodes slightly progressive in overall dimension. Maximum aortopulmonary window node is a 1 cm with 11 mm pretracheal nodes. IMPRESSION: 1. Left-sided pneumothorax slightly increased from the prior study and representing an interval development from the prior study 05/28/2016. 2. Left pleural effusion and left lower lobe atelectatic change stable to slightly improved. 3. Right pleural effusion somewhat progressive compared to the prior study with mildly progressive and/or developing right lower lobe atelectatic change. Electronically signed by: Steve Caicedo M.D. 06/02/2016 8:34 AM Dictated Date/Time: 06/02/2016 8:29 AM
[2016-06-02] MEDS: SPIRONOLACTONE 25 MG TAB PO SCH (08:57)
[2016-06-02] MEDS: RIFAXIMIN TAB 550 MG TAB PO SCH ×2 (08:57→21:13)
[2016-06-02] MEDS: VENLAFAXINE HCL 50 MG TAB PO SCH (08:57)
[2016-06-02] MEDS: ASPIRIN 81 MG ECTAB PO SCH (08:57)
[2016-06-02] MEDS: LEVOTHYROXINE 112 MCG TAB PO SCH (08:58)
[2016-06-02] MEDS: METOPROLOL SUCC 25MG EXT REL TAB PO SCH ×2 (08:58→21:13)
[2016-06-02] MEDS: INSULIN ASPART 100 UNITS/ML 3 ML PEN SC SCH ×4 (09:04→21:16)
[2016-06-02] MEDS: INSULIN GLARGINE SOLOSTAR 100 UNITS/ML 3 ML PEN SC SCH ×2 (09:05→21:17)
--- NOTE | 2016-06-02 09:19 | Gastroenterology Progress Note ---
Progress Note Date of Service: Jun 02, 2016 Subjective Pt evaluation today including: conversation w/ patient, physical exam, chart review, lab review Ms. Coy was seen and examined this morning. She had a therapeutic thoracentesis yesterday and is feeling much better. She has no GI complaints. She feels better now that lactulose has been stopped. She was given Dulcolax yesterday to induce BM and help get some of the gas out of her stomach. She reports that she tolerated this medication well (although she sometimes has issues with it at home). She reports intermittent lower abdominal cramping. This pain does not radiate. It is associated with a BM. Cramping and pain resolves after BM or flatus. Kidney function is back to baseline. Review of Systems Constitutional: No chills, No fever Respiratory: + cough, + shortness of breath Cardiac: No chest pain, No edema Abdomen: No constipation, No diarrhea, No nausea, No pain, No vomiting Medications Current Inpatient Medications Medications (Trade) Dose Ordered Sig/Virgil Route Start Time Stop Time Status Last Admin Dose Admin Acetaminophen (Tylenol Tab) 650 mg Q4H PRN PO 05/28/16 14:00 06/27/16 13:59 Ondansetron HCl (Zofran Inj) 4 mg Q6H PRN IV 05/28/16 14:00 06/27/16 13:59 06/01/16 08:31 4 MG Insulin Aspart (novoLOG ASPART) SLIDING SCALE If C... ACHS SC 05/28/16 16:00 06/27/16 15:59 06/02/16 09:04 3 UNITS Glucose (Glucose 40% Gel) 15-30 GRAMS 15 GRAMS... UD PRN PO 05/28/16 14:30 06/27/16 14:29 Glucose (Glucose Chew Tab) 4-8 Tablets 4 Tabl... UD PRN PO 05/28/16 14:30 06/27/16 14:29 Dextrose (Dextrose 50% 50ML Syringe) 25-50ML OF 50% DW IV FOR... UD PRN IV 05/28/16 14:30 06/27/16 14:29 Glucagon (Glucagon Inj) 1 mg UD PRN SQ 05/28/16 14:30 06/27/16 14:29 Miscellaneous Information (Consult Glycemic Management Pharmacy) 1 ea UD N/A 05/28/16 16:19 06/27/16 16:18 Aspirin (Ecotrin Tab) 81 mg MoWeFr@0900 PO 05/29/16 09:00 06/28/16 08:59 06/02/16 08:57 81 MG Atorvastatin Calcium (Lipitor Tab) 80 mg QPM PO 05/28/16 21:00 06/27/16 20:59 06/01/16 20:25 80 MG Insulin Glargine (Lantus Solostar Pen) 45 unit BID SC 05/28/16 21:00 06/27/16 20:59 06/02/16 09:05 45 UNIT Levothyroxine Sodium (Synthroid Tab) 112 mcg QAM PO 05/29/16 09:00 06/28/16 08:59 06/02/16 08:58 112 MCG Metoprolol Succinate (Toprol Xl Tab) 25 mg BID PO 05/28/16 21:00 06/27/16 20:59 06/02/16 08:58 25 MG Prednisone (PredniSONE TAB) 20 mg Taper DAILY PO 05/29/16 09:00 06/05/16 08:59 06/02/16 08:58 20 MG Rifaximin (Xifaxan Tab) 550 mg BID PO 05/28/16 21:00 06/27/16 20:59 06/02/16 08:57 550 MG Travoprost (Travatan Z) 1 drops HS OPB 05/28/16 21:00 06/27/16 20:59 06/01/16 20:24 1 DROPS Venlafaxine HCl 100 mg 100 mg QAM PO 05/29/16 09:00 06/28/16 08:59 06/02/16 08:57 100 MG Ceftriaxone Sodium/Dextrose (Rocephin Inj/D5 50ml) 70 ml @ 100 mls/hr Q24H IV 05/28/16 17:00 06/07/16 16:59 06/01/16 18:02 100 MLS/HR Ipratropium [place] (Atrovent 0.02% 0.5MG/2.5ML Neb) 0.5 mg Q6R INH 05/30/16 03:00 06/29/16 02:59 06/02/16 07:25 0.5 MG Levalbuterol (Xopenex 1.25MG/ 0.5ML Neb) 1.25 mg Q6R INH 05/30/16 03:00 06/29/16 02:59 06/02/16 07:25 1.25 MG Ipratropium [place] (Atrovent 0.02% 0.5MG/2.5ML Neb) 0.5 mg Q4H PRN INH 05/29/16 21:45 06/28/16 21:44 Levalbuterol (Xopenex 1.25MG/ 0.5ML Neb) 1.25 mg Q4H PRN INH 05/29/16 21:45 06/28/16 21:44 Spironolactone 50 mg 50 mg QAM PO 06/02/16 09:00 07/02/16 08:59 06/02/16 08:57 50 MG Furosemide/Syringe (Lasix Inj/ Syringe) 2 ml @ 4 mls/min [id number] IV 06/01/16 14:00 07/01/16 13:59 06/02/16 06:18 4 MLS/MIN Objective Vital Signs Date Time Temp Pulse Resp B/P Pulse Ox O2 Delivery O2 Flow Rate FiO2 06/02/16 07:34 36.4 88 16 139/64 98 06/02/16 07:29 91 16 99 Non-Rebreather 15.0 06/02/16 04:05 Nasal Cannula 3.0 06/02/16 04:00 36.4 92 18 145/70 93 Non-Rebreather 15.0 06/02/16 02:00 93 16 82 Room Air 06/02/16 00:05 Nasal Cannula 3.0 06/02/16 00:00 36.6 74 20 164/75 97 Non-Rebreather 15.0 06/01/16 20:05 Nasal Cannula 3.0 06/01/16 19:24 36.6 95 22 190/73 98 06/01/16 19:20 98 16 99 Non-Rebreather 15.0 06/01/16 16:00 Nasal Cannula 3.0 06/01/16 15:12 87 16 94 Nasal Cannula 2.0 06/01/16 15:03 36.7 104 20 159/67 91 Nasal Cannula 2.0 06/01/16 12:00 Nasal Cannula 3.0 06/01/16 11:31 37.1 106 20 166/62 90 Nasal Cannula 3.0 Physical Exam General Appearance: no apparent distress Eyes: PERRL ENT: hearing grossly normal Neck: supple, trachea midline Respiratory/Chest: lungs clear, no respiratory distress, no accessory muscle use, + decreased breath sounds, + pertinent finding (patient is wearing O2) Cardiovascular: regular rate, rhythm, no edema, no gallop, no JVD, no murmur Abdomen: normal bowel sounds, non tender, no organomegaly, no pulsatile mass, + distended (less distended than yesterday) Neurologic/Psych: alert, normal mood/affect Skin: normal color, no jaundice, warm/dry Laboratory Results Last 24 Hours Test 06/01/16 11:37 06/01/16 16:25 06/01/16 16:47 06/01/16 20:12 Bedside Glucose 219 mg/dl 231 mg/dl 238 mg/dl Pleural Fluid Source PLEURAL FLUID Pleural Fluid Color BROWN Pleural Fluid Appearance TURBID Pleural Fluid WBC 390 /uL Pleural Fluid RBC 7000 /uL Pleural Fluid Polynuclear WBCs % 13.3 % Pleural Fluid Mononuclear WBCs % 86.7 % Pleural Fluid Total Protein 2.0 g/dl Pleural Fluid LDH 73 IU Pleural Fluid Glucose 216 mg/dl Pleural Fluid Amylase 12 U/L Pleural Fluid Triglycerides 225 mg/dl Test 06/02/16 05:45 06/02/16 07:31 White Blood Count 15.26 K/uL Red Blood Count 3.51 M/uL Hemoglobin 10.0 g/dL Hematocrit 32.1 % Mean Corpuscular Volume 91.5 fL Mean Corpuscular Hemoglobin 28.5 pg Mean Corpuscular Hemoglobin Concent 31.2 g/dl RDW Standard Deviation 50.5 fL RDW Coefficient of Variation 14.9 % Platelet Count 332 K/uL Mean Platelet Volume 9.3 fL Sodium Level 142 mmol/L Potassium Level 4.0 mmol/L Chloride Level 102 mmol/L Carbon Dioxide Level 34 mmol/L Anion Gap 6.0 mmol/L Blood Urea Nitrogen 36 mg/dl Creatinine 1.10 mg/dl Est Creatinine Clear Calc Drug Dose 55.2 ml/min Estimated GFR () 57.7 Estimated GFR (Non- 49.8 BUN/Creatinine Ratio 33.1 Random Glucose 182 mg/dl Calcium Level 8.7 mg/dl Bedside Glucose 169 mg/dl Assessment and Plan Patient is a 75 year old female admitted with worsening SOB and confusion. At the time of admission, she was not taking her diuretics or lactulose and her ammonia was elevated to 54. She was started on diuretics and albumin. Diuretics were held for 2 days for worsening kidney function. Nephrology gave OK to start low dose diuretics as creatinine was closer to her baseline of 1.2. Path pending on pleural fluid. Dulcolax 5 mg now Zofran PRN nausea Continue empiric coverage for SBP - on day 5 of 5 day course of Rocephin 2 g daily stop lactulose xifaxan 550 BID diet as tolerated continue diuretics as advised by nephrology Follow up with GI as an outpatient - we will contact you for appt GI to sign off. Please call with any questions or concerns I performed a history and physical examination of the patient. I have discussed the patient's case, impression and plan with JULIO C Pearce. Her note reflects my findings and plan. Follow renal function closely. Rahul Rasheed MD
[2016-06-02] MEDS ORDERED: BISACODYL 5 MG TABEC PO PRN (09:30)
[2016-06-02] MEDS ORDERED: BISACODYL 5 MG TABEC PO ONE (09:30)
--- NOTE | 2016-06-02 10:41 | Pharmacy Progress Note ---
Glycemic Control: Progress Nt Date of Service Jun 02, 2016. Scope Glycemic Pharmacist consulted by JULIO C Sanabria on 05/28/16 for glycemic control and to write orders per [facility] inpatient glycemic control protocol. Objective Accuchecks BSG (last 24hrs): Test 06/01/16 11:37 06/01/16 16:47 06/01/16 20:12 06/02/16 05:45 Bedside Glucose 219 mg/dl (70-90) 231 mg/dl (70-90) 238 mg/dl (70-90) Random Glucose 182 mg/dl (70-99) Test 06/02/16 07:31 Bedside Glucose 169 mg/dl (70-90) Laboratory Data (last 24hrs) Test 06/02/16 05:45 Anion Gap 6.0 mmol/L BUN/Creatinine Ratio 33.1 Blood Urea Nitrogen 36 mg/dl Creatinine 1.10 mg/dl Potassium Level 4.0 mmol/L Sodium Level 142 mmol/L White Blood Count 15.26 K/uL HbA1c: Test 05/30/16 05:56 Hemoglobin A1c 7.8 % (4.5-5.6) H Recent Pertinent Medications Outpatient Anti-diabetic Regimen: * Lantus 45 units BID, Novolog 30units AC + 20 units with snacks * A1c = 7.8 % 05/30/16 Risk Factors for Insulin Resistance: * Steroids: Steroid taper * Infection: Rocephin * IVF:Fluid restricted, Lasix IV bid * Diet: DM2/AHA/Moiz/Fluid restriction Assessment & Plan ASSESSMENT: * ADA & AACE recommend a goal blood sugar range 140-180 mg/dl for the majority of critically ill & non-critically ill patients. However, more stringent targets may be selected in individual cases. Will utilize more stringent goal range of 120-160mg/dl based on tight degree of outpatient control. 05/31/16: * 75yo T2DM female with well controlled diabetes as an outpatient per recent A1c * Pt with sustained moderate-severe hyperglycemia secondary to large dose of Solumedrol given 05/28 followed by prednisone 40mg daily. * Prednisone dose is tapering to 20mg daily, expect BSGs to improve with this step down in steroid dosing * AM fasting BSGs are in goal range indicating adequate basal insulin dosing - will continue current dosing which is c/w outpatient dosing * BSGs trend upwards throughout the day indicating more prandial coverage needed, however, prednisone dose cut in half today. Expect improvement with decreased steroids. Will empirically decrease CF/CR slightly to prevent hypo. 06/01/16: * BSG control worsened since yesterday morning. BSGs have been > 200 mg/dl since bedtime yesterday. * Adjustments were made to Novolog parameters in response to tapering down of steroids. However, it appears tighter Novolog parameters are still needed. * Continue current Lantus dosing * Of note, the pt does require much looser Novolog parameters when steroids are absent (per past admission data). 06/02/16: * Patient received a total of 111 units of insulin over the past 24 hours; BSGs sustained in low-mid 200's * Fasting BSG this AM 169 mg/dL * Continue Lantus as Fasting BSG better today then yesterday * Novolog re-tightened yesterday- continue for now with the exception of changing goal range to 100-140 mg/dL PLAN FOR INPATIENT GLYCEMIC CONTROL: * Continue Basal insulin with LANTUS 45 units SQ BID * Correctional Insulin with NOVOLOG per scale ACHS or Q6hrs while NPO * Goal Range: Low 100 mg/dL - High 140 mg/dL * CONTINUE Correction Factor: 12 mg/dL/unit * CONTINUE Nutritional / Prandial insulin per carb ratio of 1 unit per 3.5 grams CHO consumed * Please note that the plan above was derived based on current level of insulin resistance and hospital stress. These recommendations are appropriate for inpatient admission only. Plan of care upon discharge will need to be reassessed to avoid potential outpatient hypo/hyperglycemia. Thank you.
--- NOTE | 2016-06-02 11:26 | Progress Note ---
Internal Med Progress Note Date of Service: Jun 02, 2016. Provider Documentation: SUBJECTIVE: Patient is feeling much better today. SOB has improved. No worsening of cough from baseline but says able to bring up more sputum now- greenish. Denies any abdominal pain, nausea, vomiting, fever, chills, chest pain. Foleys in situ On NRB/100 % Oxygen for small pneumothorax OBJECTIVE: Vital Signs-as noted below Exam: General Appearance:Moderately built and nourished, no apparent distress Head: normocephalic, Atraumatic Eyes: anicteric Neck: supple Respiratory/Chest: Decreased breath sounds, few crackles, No accessory muscle use Cardiovascular: S1, S2, NSR, No murmur Abdomen/GI:Soft, Non tender, distended, Bowel sounds present Extremities/Musculoskelatal: Chronic changes, No edema Neurologic/Psych:AAOX3, grossly no focal neurological deficits Lab data as noted below. ASSESSMENT & PLAN: ASSESSMENT & PLAN : ACUTE HYPOXIC RESPIRATORY FAILURE : Improved MULTIFACTORIAL: LEFT PLEURAL EFFUSION/ VOLUME OVERLOAD IN SETTING OF GRAHAM / DIASTOLIC CHF / MILD COPD EXACERBATION H/O MEDICATION NON COMPLIANCE: Patient self stopped her Lasix 2 weeks ago . Pt presented with increasing shortness of breath x 1 1/2 months; 74% on RA in ED -S/P Left thoracentesis - 1.4 L on 06/01/16---> Chylous effusion -IV lasix - Restarted on 06/01 after holding it for 2 days due to elevated creatinine. 20 mg BID and aldactone 50 mg -Work up - CXR : CHF and left pleural effusion likely reactionary from GRAHAM; Last ECHO:02/2014: EF > 70% ; Leukocytosis improving: on Steroid taper started by PCP for COPD exacerbation -Pulmonary - discussed with Dr Perkins. BILATERAL PLEURAL EFFUSION - CHYLOUS -In setting of ascites/cirrhosis -Left thoracentesis done on 06/01/[address] Perkins - 1.4 L fluid removed--> Chylous effusion- TGS- 225, Protein -2.0, LDH- 73, WBC-123 -CT scan today shows Right pleural effusion- progressively worsening likely chylous too per d/w dr Perkins,. Would avoid thoracentesis in future -Try to wean off oxygen SMALL PNEUMOTHORAX POST THORACENTESIS -Per CXR post procedure, per CT scan chest today- slight worsening of pneumothorax -NRB/100% Oxygen -Monitor per d/w pulmonary ASCITES: (MILD) S/P Paracentesis ON 05/29/16- 100 CC Chylous fluid, WBC < 500 -No SBP but was on antibiotics prior to paracentesis. -IV rocephin 2 gram daily for prophylaxis x Day 5/ 5 days per GI. S/P IV Albumin bid -Re started IV lasix/Aldactone as above on 06/01/16 -US abdomen- reviewed. 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 Was held x 2 days due to elevated creatinine -Monitor creatinine. Appreciate nephrology inputs ACUTE HEPATIC ENCEPHALOPATHY/GRAHAM - Mental status back to baseline, AAOX2- Resolved Pt did not take lactulose, Rifaximin secondary to fecal incontinence Ammonia levels elevated at 62 -Unable to tolerate lactulose, so started on dulcolax. Continue with Rifaximin -GI following- discussed. Appreciate inputs DIARRHEA - S/P Lactulose -KUB today- no acute abnormalities; CT ABD: as below (Mild periaortic and mesenteric adenopathy somewhat progressive from the prior study) -C diff negative, Stool studies- negative DM II Uncontrolled Last A1c: 9.9 02/2016 Continue ISS, [place] HYPOTHYROIDISM: Continue Levothyroxine PAROXYSMAL AFIB currently in NSR; rate controlled -Continue beta moises -Not on anticoagulated due to anemia/GI bleeding DVT PROPHYLAXIS -SCDs due to hx varices, anemia, GI bleeding CODE STATUS -Full code DISPOSITION: Medical mx in progress PT/OT on board Vital Signs: Date Time Temp Pulse Resp B/P Pulse Ox O2 Delivery O2 Flow Rate FiO2 06/02/16 07:34 36.4 88 16 139/64 98 06/02/16 07:29 91 16 99 Non-Rebreather 15.0 06/02/16 04:05 Nasal Cannula 3.0 06/02/16 04:00 36.4 92 18 145/70 93 Non-Rebreather 15.0 06/02/16 02:00 93 16 82 Room Air 06/02/16 00:05 Nasal Cannula 3.0 06/02/16 00:00 36.6 74 20 164/75 97 Non-Rebreather 15.0 2/23/17 20:05 Nasal Cannula 3.0 06/01/16 19:24 36.6 95 22 190/73 98 06/01/16 19:20 98 16 99 Non-Rebreather 15.0 06/01/16 16:00 Nasal Cannula 3.0 06/01/16 15:12 87 16 94 Nasal Cannula 2.0 06/01/16 15:03 36.7 104 20 159/67 91 Nasal Cannula 2.0 06/01/16 12:00 Nasal Cannula 3.0 06/01/16 11:31 37.1 106 20 166/62 90 Nasal Cannula 3.0 Lab Results: Results Past 24 Hours Test 06/01/16 11:37 06/01/16 16:25 06/01/16 16:47 06/01/16 20:12 Range/Units Bedside Glucose 219 231 238 70-90 mg/dl Pleural Fluid Source PLEURAL FLUID Pleural Fluid Color BROWN Pleural Fluid Appearance TURBID Pleural Fluid WBC 390 /uL Pleural Fluid RBC 7000 /uL Pleural Fluid Polynuclear WBCs % 13.3 % Pleural Fluid Mononuclear WBCs % 86.7 % Pleural Fluid Total Protein 2.0 g/dl Pleural Fluid LDH 73 IU Pleural Fluid Glucose 216 mg/dl Pleural Fluid Amylase 12 U/L Pleural Fluid Triglycerides 225 mg/dl Test 06/02/16 05:45 06/02/16 07:31 Range/Units White Blood Count 15.26 4.8-10.8 K/uL Red Blood Count 3.51 4.2-5.4 M/uL Hemoglobin 10.0 12.0-16.0 g/dL Hematocrit 32.1 37-47 % Mean Corpuscular Volume 91.5 80-100 fL Mean Corpuscular Hemoglobin 28.5 25-34 pg Mean Corpuscular Hemoglobin Concent 31.2 32-36 g/dl RDW Standard Deviation 50.5 36.4-46.3 fL RDW Coefficient of Variation 14.9 11.5-14.5 % Platelet Count 332 130-400 K/uL Mean Platelet Volume 9.3 7.4-10.4 fL Sodium Level 142 136-145 mmol/L Potassium Level 4.0 3.5-5.1 mmol/L Chloride Level 102 98-107 mmol/L Carbon Dioxide Level 34 21-32 mmol/L Anion Gap 6.0 3-11 mmol/L Blood Urea Nitrogen 36 7-18 mg/dl Creatinine 1.10 0.60-1.20 mg/dl Est Creatinine Clear Calc Drug Dose 55.2 ml/min Estimated GFR () 57.7 Estimated GFR (Non- 49.8 BUN/Creatinine Ratio 33.1 10-20 Random Glucose 182 70-99 mg/dl Calcium Level 8.7 8.5-10.1 mg/dl Bedside Glucose 169 70-90 mg/dl Microbiology Results 06/01/16 Acid Fast Stain, Received Pending 06/01/16 Mycobacterial Culture, Received Pending 06/01/16 Gram Stain - Final, Resulted 06/01/16 Bacterial Culture, Resulted Pending
--- NOTE | 2016-06-02 12:29 | Nephrology Progress Note ---
Nephrology Progress Note Date of Service: Jun 02, 2016. Subjective dyspnea improved; had L thoracentesis yesterday; less low BL ant abdominal cramping but c/o constipation. overall feels much better. unsteady on feet Objective Date Time Temp Pulse Resp B/P Pulse Ox O2 Delivery O2 Flow Rate FiO2 06/02/16 11:42 36.6 90 16 128/72 100 06/02/16 07:34 36.4 88 16 139/64 98 06/02/16 07:29 91 16 99 Non-Rebreather 15.0 06/02/16 04:05 Nasal Cannula 3.0 06/02/16 04:00 36.4 92 18 145/70 93 Non-Rebreather 15.0 06/02/16 02:00 93 16 82 Room Air 06/02/16 00:05 Nasal Cannula 3.0 06/02/16 00:00 36.6 74 20 164/75 97 Non-Rebreather 15.0 06/01/16 20:05 Nasal Cannula 3.0 06/01/16 19:24 36.6 95 22 190/73 98 06/01/16 19:20 98 16 99 Non-Rebreather 15.0 06/01/16 16:00 Nasal Cannula 3.0 06/01/16 15:12 87 16 94 Nasal Cannula 2.0 06/01/16 15:03 36.7 104 20 159/67 91 Nasal Cannula 2.0 Physical Exam: GENERAL: Awake, alert, oriented x3. on 02NC; up in chair; less dyspneic w/ speech EYES: No scleral icterus. ENT: Moist mucous membranes. NECK: Supple. PULMONARY: moves almost no air on lung exam; many fewer wheezes CARDIAC: RRR ABDOMEN: Bowel sounds positive though , taut, mildly distended. prieto + EXTREMITIES: trace - +1 edema BLE indurated NEUROLOGICALLY: marquez, fluent speech DERMATOLOGIC: No rash or ulcers noted. reddened/ indurated venous stasis changes BL ant shins Current Inpatient Medications Medications (Trade) Dose Ordered Sig/Virgil Route Start Time Stop Time Status Last Admin Dose Admin Acetaminophen (Tylenol Tab) 650 mg Q4H PRN PO 05/28/16 14:00 06/27/16 13:59 Ondansetron HCl (Zofran Inj) 4 mg Q6H PRN IV 05/28/16 14:00 06/27/16 13:59 06/01/16 08:31 4 MG Insulin Aspart (novoLOG ASPART) SLIDING SCALE If C... ACHS SC 05/28/16 16:00 06/27/16 15:59 06/02/16 09:04 3 UNITS Glucose (Glucose 40% Gel) 15-30 GRAMS 15 GRAMS... UD PRN PO 05/28/16 14:30 06/27/16 14:29 Glucose (Glucose Chew Tab) 4-8 Tablets 4 Tabl... UD PRN PO 05/28/16 14:30 06/27/16 14:29 Dextrose (Dextrose 50% 50ML Syringe) 25-50ML OF 50% DW IV FOR... UD PRN IV 05/28/16 14:30 06/27/16 14:29 Glucagon (Glucagon Inj) 1 mg UD PRN SQ 05/28/16 14:30 06/27/16 14:29 Miscellaneous Information (Consult Glycemic Management Pharmacy) 1 ea UD N/A 05/28/16 16:19 06/27/16 16:18 Aspirin (Ecotrin Tab) 81 mg MoWeFr@0900 PO 05/29/16 09:00 06/28/16 08:59 06/02/16 08:57 81 MG Atorvastatin Calcium (Lipitor Tab) 80 mg QPM PO 05/28/16 21:00 06/27/16 20:59 06/01/16 20:25 80 MG Insulin Glargine (Lantus Solostar Pen) 45 unit BID SC 05/28/16 21:00 06/27/16 20:59 06/02/16 09:05 45 UNIT Levothyroxine Sodium (Synthroid Tab) 112 mcg QAM PO 05/29/16 09:00 06/28/16 08:59 06/02/16 08:58 112 MCG Metoprolol Succinate (Toprol Xl Tab) 25 mg BID PO 05/28/16 21:00 06/27/16 20:59 06/02/16 08:58 25 MG Prednisone (PredniSONE TAB) 20 mg Taper DAILY PO 05/29/16 09:00 06/05/16 08:59 06/02/16 08:58 20 MG Rifaximin (Xifaxan Tab) 550 mg BID PO 05/28/16 21:00 06/27/16 20:59 06/02/16 08:57 550 MG Travoprost (Travatan Z) 1 drops HS OPB 05/28/16 21:00 06/27/16 20:59 06/01/16 20:24 1 DROPS Venlafaxine HCl 100 mg 100 mg QAM PO 05/29/16 09:00 06/28/16 08:59 06/02/16 08:57 100 MG Ceftriaxone Sodium/Dextrose (Rocephin Inj/D5 50ml) 70 ml @ 100 mls/hr Q24H IV 05/28/16 17:00 06/07/16 16:59 06/01/16 18:02 100 MLS/HR Ipratropium [place] (Atrovent 0.02% 0.5MG/2.5ML Neb) 0.5 mg Q6R INH 05/30/16 03:00 06/29/16 02:59 06/02/16 07:25 0.5 MG Levalbuterol (Xopenex 1.25MG/ 0.5ML Neb) 1.25 mg Q6R INH 05/30/16 03:00 06/29/16 02:59 06/02/16 07:25 1.25 MG Ipratropium [place] (Atrovent 0.02% 0.5MG/2.5ML Neb) 0.5 mg Q4H PRN INH 05/29/16 21:45 06/28/16 21:44 Levalbuterol (Xopenex 1.25MG/ 0.5ML Neb) 1.25 mg Q4H PRN INH 05/29/16 21:45 06/28/16 21:44 Spironolactone 50 mg 50 mg QAM PO 06/02/16 09:00 07/02/16 08:59 06/02/16 08:57 50 MG Furosemide/Syringe (Lasix Inj/ Syringe) 2 ml @ 4 mls/min [id number] IV 06/01/16 14:00 07/01/16 13:59 06/02/16 06:18 4 MLS/MIN Bisacodyl (Dulcolax Tab) 5 mg DAILY PRN PO 06/02/16 09:30 07/02/16 09:29 Last 24 Hours Test 06/01/16 16:25 06/01/16 16:47 06/01/16 20:12 06/02/16 05:45 Pleural Fluid Source PLEURAL FLUID Pleural Fluid Color BROWN Pleural Fluid Appearance TURBID Pleural Fluid WBC 390 /uL Pleural Fluid RBC 7000 /uL Pleural Fluid Polynuclear WBCs % 13.3 % Pleural Fluid Mononuclear WBCs % 86.7 % Pleural Fluid Total Protein 2.0 g/dl Pleural Fluid LDH 73 IU Pleural Fluid Glucose 216 mg/dl Pleural Fluid Amylase 12 U/L Pleural Fluid Triglycerides 225 mg/dl Bedside Glucose 231 mg/dl 238 mg/dl White Blood Count 15.26 K/uL Red Blood Count 3.51 M/uL Hemoglobin 10.0 g/dL Hematocrit 32.1 % Mean Corpuscular Volume 91.5 fL Mean Corpuscular Hemoglobin 28.5 pg Mean Corpuscular Hemoglobin Concent 31.2 g/dl RDW Standard Deviation 50.5 fL RDW Coefficient of Variation 14.9 % Platelet Count 332 K/uL Mean Platelet Volume 9.3 fL Sodium Level 142 mmol/L Potassium Level 4.0 mmol/L Chloride Level 102 mmol/L Carbon Dioxide Level 34 mmol/L Anion Gap 6.0 mmol/L Blood Urea Nitrogen 36 mg/dl Creatinine 1.10 mg/dl Est Creatinine Clear Calc Drug Dose 55.2 ml/min Estimated GFR () 57.7 Estimated GFR (Non- 49.8 BUN/Creatinine Ratio 33.1 Random Glucose 182 mg/dl Calcium Level 8.7 mg/dl Test 06/02/16 07:31 06/02/16 11:23 Bedside Glucose 169 mg/dl 176 mg/dl Date/Time Source Procedure Growth Status 06/01/16 16:25 Pleural Fluid (Thoracentesis) Left Acid Fast Stain Pending Received 06/01/16 16:25 Pleural Fluid (Thoracentesis) Left Mycobacterial Culture Pending Received 06/01/16 16:25 Pleural Fluid (Thoracentesis) Left Gram Stain - Final Resulted 06/01/16 16:25 Pleural Fluid (Thoracentesis) Left Bacterial Culture Pending Resulted Assessment & Plan 75 y/o F w/ NAFLD, a fib, diastolic HF, DM, CAD, past bladder/endometrial CA admitted on 05/28 w/ acute hypoxic respiratory failure and mild hepatic encephalopathy. She developed contrast induced nephropathy in the setting of obligate diuresis with peak creatinine 2.2 on 05/29. Acute kidney injury with a creatinine of 1.2 on admission and baseline 1.1-1.2 as outpt, 1.4-1.7 range as inpt> as of today renal function back to baseline Renal function improved after w/holding diuretics and w/ gentle albumin supplementation but diuretics resumed d/t volume overload more symptomatic. not hepatorenal syndrome. Multifactorial volume overload and recurrent acute hypoxic respiratory failure from pleural effusion and NAFLD, COPD. >cont 50 mg daily aldactone >cont IV lasix 20 mg IV 10/20 starting this afternoon >reasonable to remove prieto soon/ today >defer to primary service and GI on lactulose, abtx; no UTI >daily bmp -standing wts MUCH appreciated and pls continue >maintained 2 gm daily na diet; also ordered 1.5L daily fluid limit >cont strict I/O Appreciate consult; will follow with you.
[2016-06-02] MEDS: CEFTRIAXONE SOD INJ 2,000 MG in DEXTROSE 5% 50ML 50 ML IV SCH (17:30)
--- NOTE | 2016-06-02 18:24 | Pulmonology Progress Note ---
Pulmonary Progress Note Date of Service Jun 02, 2016. Attending Shilo Perkins Subjective Patient feeling better today after 1.4 L of chylous effusion removed. Objective She is currently sitting in a chair up able to complete full sentences on the nonrebreather. Vital signs: Reviewed and stable Respiratory: Decreased breath sounds left apices increased breath sounds left lower lobe mild crackles appreciated at the right apices and dullness to percussion right lower lobe posterior subsegment Cardiac: S1-S2 regular rate and rhythm but distant heart sounds Abdomen: Distended decreased breath sounds but no tenderness to deep palpation Pleural fluid analysis reviewed: Assessment & Plan 75-year-old female with progressive dyspnea on exertion and nonalcoholic steatohepatitis hepatitis/cirrhosis: #1 Dyspnea: Multifactorial up this time with pleural hypertension, chylous effusion, pneumothorax and new right-sided pleural effusion. 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 The patient I have discussed the possibility of future thoracentesis when she is more stable trying to evaluate the right side and/or for therapeutic tap. Pneumothorax: Patient has a small apical left sided pneumothorax status post thoracentesis. Patient has multiloculated left-sided chylous effusion creating up at this for postprocedural pneumothorax and ensued and pneumothorax. Continue to monitor keep on nonrebreather at this time no acute intervention. Data Medications: Current Inpatient Medications Medications (Trade) Dose Ordered Sig/Virgil Route Start Time Stop Time Status Last Admin Dose Admin Acetaminophen (Tylenol Tab) 650 mg Q4H PRN PO 05/28/16 14:00 06/27/16 13:59 Ondansetron HCl (Zofran Inj) 4 mg Q6H PRN IV 05/28/16 14:00 06/27/16 13:59 06/01/16 08:31 4 MG Insulin Aspart (novoLOG ASPART) SLIDING SCALE If C... ACHS SC 05/28/16 16:00 06/27/16 15:59 06/02/16 17:30 12 UNITS Glucose (Glucose 40% Gel) 15-30 GRAMS 15 GRAMS... UD PRN PO 05/28/16 14:30 06/27/16 14:29 Glucose (Glucose Chew Tab) 4-8 Tablets 4 Tabl... UD PRN PO 05/28/16 14:30 06/27/16 14:29 Dextrose (Dextrose 50% 50ML Syringe) 25-50ML OF 50% DW IV FOR... UD PRN IV 05/28/16 14:30 06/27/16 14:29 Glucagon (Glucagon Inj) 1 mg UD PRN SQ 05/28/16 14:30 06/27/16 14:29 Miscellaneous Information (Consult Glycemic Management Pharmacy) 1 ea UD N/A 05/28/16 16:19 06/27/16 16:18 Aspirin (Ecotrin Tab) 81 mg MoWeFr@0900 PO 05/29/16 09:00 06/28/16 08:59 06/02/16 08:57 81 MG Atorvastatin Calcium (Lipitor Tab) 80 mg QPM PO 05/28/16 21:00 06/27/16 20:59 06/01/16 20:25 80 MG Insulin Glargine (Lantus Solostar Pen) 45 unit BID SC 05/28/16 21:00 06/27/16 20:59 06/02/16 09:05 45 UNIT Levothyroxine Sodium (Synthroid Tab) 112 mcg QAM PO 05/29/16 09:00 06/28/16 08:59 06/02/16 08:58 112 MCG Metoprolol Succinate (Toprol Xl Tab) 25 mg BID PO 05/28/16 21:00 06/27/16 20:59 06/02/16 08:58 25 MG Prednisone (PredniSONE TAB) 20 mg Taper DAILY PO 05/29/16 09:00 06/05/16 08:59 06/02/16 08:58 20 MG Rifaximin (Xifaxan Tab) 550 mg BID PO 05/28/16 21:00 06/27/16 20:59 06/02/16 08:57 550 MG Travoprost (Travatan Z) 1 drops HS OPB 05/28/16 21:00 06/27/16 20:59 06/01/16 20:24 1 DROPS Venlafaxine HCl 100 mg 100 mg QAM PO 05/29/16 09:00 06/28/16 08:59 06/02/16 08:57 100 MG Ceftriaxone Sodium/Dextrose (Rocephin Inj/D5 50ml) 70 ml @ 100 mls/hr Q24H IV 05/28/16 17:00 06/07/16 16:59 06/02/16 17:30 100 MLS/HR Ipratropium [place] (Atrovent 0.02% 0.5MG/2.5ML Neb) 0.5 mg Q6R INH 05/30/16 03:00 06/29/16 02:59 06/02/16 14:25 0.5 MG Levalbuterol (Xopenex 1.25MG/ 0.5ML Neb) 1.25 mg Q6R INH 05/30/16 03:00 06/29/16 02:59 06/02/16 14:26 1.25 MG Ipratropium [place] (Atrovent 0.02% 0.5MG/2.5ML Neb) 0.5 mg Q4H PRN INH 05/29/16 21:45 06/28/16 21:44 Levalbuterol (Xopenex 1.25MG/ 0.5ML Neb) 1.25 mg Q4H PRN INH 05/29/16 21:45 06/28/16 21:44 Spironolactone 50 mg 50 mg QAM PO 06/02/16 09:00 07/02/16 08:59 06/02/16 08:57 50 MG Furosemide/Syringe (Lasix Inj/ Syringe) 2 ml @ 4 mls/min [id number] IV 06/01/16 14:00 07/01/16 13:59 06/02/16 15:15 4 MLS/MIN Bisacodyl (Dulcolax Tab) 5 mg DAILY PRN PO 06/02/16 09:30 07/02/16 09:29 I & O: 24-Hour Column 06/02/16 08:00 Intake Total 365 ml Output Total 3250 ml Balance -2885 ml Vital Signs: Date Time Temp Pulse Resp B/P Pulse Ox O2 Delivery O2 Flow Rate FiO2 06/02/16 16:00 Non-Rebreather 15.0 06/02/16 15:13 36.7 97 16 128/55 97 06/02/16 14:26 91 16 100 Non-Rebreather 15.0 06/02/16 12:00 Non-Rebreather 15.0 06/02/16 11:42 36.6 90 16 128/72 100 06/02/16 08:00 Non-Rebreather 15.0 06/02/16 07:34 36.4 88 16 139/64 98 06/02/16 07:29 91 16 99 Non-Rebreather 15.0 06/02/16 04:05 Nasal Cannula 3.0 06/02/16 04:00 36.4 92 18 145/70 93 Non-Rebreather 15.0 06/02/16 02:00 93 16 82 Room Air 06/02/16 00:05 Nasal Cannula 3.0 06/02/16 00:00 36.6 74 20 164/75 97 Non-Rebreather 15.0 06/01/16 20:05 Nasal Cannula 3.0 06/01/16 19:24 36.6 95 22 190/73 98 06/01/16 19:20 98 16 99 Non-Rebreather 15.0 Laboratory Results: Last 24 Hours Test 06/01/16 20:12 06/02/16 05:45 06/02/16 07:31 06/02/16 11:23 Bedside Glucose 238 mg/dl 169 mg/dl 176 mg/dl White Blood Count 15.26 K/uL Red Blood Count 3.51 M/uL Hemoglobin 10.0 g/dL Hematocrit 32.1 % Mean Corpuscular Volume 91.5 fL Mean Corpuscular Hemoglobin 28.5 pg Mean Corpuscular Hemoglobin Concent 31.2 g/dl RDW Standard Deviation 50.5 fL RDW Coefficient of Variation 14.9 % Platelet Count 332 K/uL Mean Platelet Volume 9.3 fL Sodium Level 142 mmol/L Potassium Level 4.0 mmol/L Chloride Level 102 mmol/L Carbon Dioxide Level 34 mmol/L Anion Gap 6.0 mmol/L Blood Urea Nitrogen 36 mg/dl Creatinine 1.10 mg/dl Est Creatinine Clear Calc Drug Dose 55.2 ml/min Estimated GFR () 57.7 Estimated GFR (Non- 49.8 BUN/Creatinine Ratio 33.1 Random Glucose 182 mg/dl Calcium Level 8.7 mg/dl Test 06/02/16 16:11 Bedside Glucose 185 mg/dl
[2016-06-02] MEDS: TRAVOPROST Z 0.004% OPH SOLN 2.5 ML BTL OPB SCH (21:13)
[2016-06-02] MEDS: ATORVASTATIN 40 MG TAB PO SCH (21:13)
[2016-06-03] VITALS (12 sets, daily range): BP systolic 113–159; BP diastolic 52–70; PULSE 81–104; TEMP 36–37; O2SAT 96–100
[2016-06-03] MEDS: FUROSEMIDE INJ 20 MG in SYRINGE 0 ML IV SCH ×2 (06:36→14:35)
[2016-06-03] MEDS: IPRATROPIUM BROMIDE NEB SOLN 0.02% 2.5 ML VIAL INH SCH ×3 (07:16→19:59)
[2016-06-03] MEDS: LEVALBUTEROL 1.25MG/0.5ML NEB INH SCH ×3 (07:16→19:59)
[2016-06-03 08:16] LABS: HEMATOCRIT 32.2 % (37-47); MEAN CELL VOLUME 89.7 fL (80-100); MEAN CORPUSCULAR HEMOGLOBIN 27.9 pg (25-34); MEAN CORPUSCULAR HGB CONC 31.1 g/dl (32-36); MEAN PLATELET VOLUME 9.8 fL (7.4-10.4); PLATELET COUNT 350 K/uL (130-400); RED BLOOD COUNT 3.59 M/uL (4.2-5.4); WHITE BLOOD COUNT 15.49 K/uL (4.8-10.8)
[2016-06-03 08:51] LABS: BUN/CREATININE RATIO 36.7 (10-20); CREATININE 1.1 mg/dl (0.60-1.20); POTASSIUM 3.7 mmol/L (3.5-5.1)
--- NOTE | 2016-06-03 09:27 | Progress Note ---
Internal Med Progress Note Date of Service: Jun 03, 2016. Provider Documentation: SUBJECTIVE: Patient is feeling much better today. SOB has improved. No worsening of cough from baseline but says able to bring up more sputum. Denies any abdominal pain, nausea, vomiting, fever, chills, chest pain. Just had a small BM yest Foleys in situ On 6 L Oxygen for small pneumothorax OBJECTIVE: Vital Signs-as noted below Exam: General Appearance:Moderately built and nourished, no apparent distress Head: normocephalic, Atraumatic Eyes: anicteric Neck: supple Respiratory/Chest: Decreased breath sounds B/L Right > left, few crackles at bases, No accessory muscle use Cardiovascular: S1, S2, NSR, No murmur Abdomen/GI:Soft, Non tender, distended, Bowel sounds present Extremities/Musculoskelatal: Chronic changes, No edema Neurologic/Psych:AAOX3, grossly no focal neurological deficits Lab data as noted below. ASSESSMENT & PLAN: ASSESSMENT & PLAN : ACUTE HYPOXIC RESPIRATORY FAILURE : Improved MULTIFACTORIAL: LEFT PLEURAL EFFUSION/ VOLUME OVERLOAD IN SETTING OF GRAHAM / DIASTOLIC CHF / MILD COPD EXACERBATION H/O MEDICATION NON COMPLIANCE: Patient self stopped her Lasix 2 weeks ago . Pt presented with increasing shortness of breath x 1 1/2 months; 74% on RA in ED -S/P Left thoracentesis - 1.4 L on 06/01/16---> Chylous effusion. Pneumothorax small post procedure -IV lasix - Restarted on 06/01 after holding it for 2 days due to elevated creatinine. 20 mg BID and aldactone 50 mg -Work up - CXR : CHF and left pleural effusion likely reactionary from GRHAAM; Last ECHO:02/2014: EF > 70% ; Leukocytosis improving: on Steroid taper started by PCP for COPD exacerbation -Pulmonary - discussed with Dr Soto today PLEURAL EFFUSION- Likely Chylous On presentation had a significant Left pleural effusion- 1.5 L--> initially hesitant about thoracentesis as risk of infection/malnutrition with removal of protein in cirrhotic patient per pulmonary--> went into respiratory distress and thus did Left thoracentesis on 06/01/16 removing 1.4 litres--> Likely Chylous effusion- TGS- 225, Protein -2.0, LDH- 73, WBC-123 -Next day CXR- Slight worsening of Right pleural effusion., Etiology ? Probably chylous -Ascitic fluid per paracentesis on presentation appeared chylous too (no TGS sent) -Not sure about etiology. 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 Plan is follow up with Dr Perkins outpatient - Monitor Right pleural effusion and if worsens, consider thoracentesis in future. SMALL PNEUMOTHORAX POST THORACENTESIS -Per CXR post procedure, per CT scan chest today- slight worsening of pneumothorax -NRB/100% Oxygen -Repeat CXR in AM - follow up -Monitor per d/w pulmonary ASCITES: (MILD) S/P Paracentesis ON 05/29/16- 100 CC Chylous fluid per appearance, WBC < 500 -No SBP but was on antibiotics prior to paracentesis. -IV rocephin 2 gram daily for prophylaxis x Day 5/ 5 days per GI (Last dose on ). S/P IV Albumin bid -Re started IV lasix/Aldactone as above on 06/01/16 per nephrology -US abdomen- reviewed. 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 Was held x 2 days due to elevated creatinine -Monitor creatinine. Appreciate nephrology inputs ACUTE HEPATIC ENCEPHALOPATHY/GRAHAM - Mental status back to baseline, AAOX2- Resolved Pt did not take lactulose, Rifaximin secondary to fecal incontinence Ammonia levels elevated at 62 -Unable to tolerate lactulose, so started on dulcolax, but has not had BMs. Increase dulcolax to BID, add Miralex. Continue with Rifaximin -GI following- discussed. Appreciate inputs S/P DIARRHEA - Now constipated S/P Lactulose- not able to tolerate it well due to nausea and GI symptoms -KUB - no acute abnormalities; CT ABD: as below (Mild periaortic and mesenteric adenopathy somewhat progressive from the prior study) -C diff negative, Stool studies- negative DM II Uncontrolled Last A1c: 9.9 02/2016 Continue ISS, Lantus HYPOTHYROIDISM: Continue Levothyroxine PAROXYSMAL AFIB currently in NSR; rate controlled -Continue beta moises -Not on anticoagulated due to anemia/GI bleeding DVT PROPHYLAXIS -SCDs due to hx varices, anemia, GI bleeding CODE STATUS -Full code DISPOSITION: Medical mx in progress Discussed case with Dr Perkins PT/OT on board Vital Signs: Date Time Temp Pulse Resp B/P Pulse Ox O2 Delivery O2 Flow Rate FiO2 06/03/16 08:04 37.0 90 18 129/68 97 06/03/16 07:16 104 16 98 Non-Rebreather 15.0 06/03/16 05:12 Non-Rebreather 15.0 06/03/16 04:26 36.7 95 16 159/70 99 Non-Rebreather 06/03/16 01:44 90 16 98 Non-Rebreather 15.0 06/03/16 00:05 99 Non-Rebreather 15.0 06/02/16 23:53 36.3 90 18 130/65 99 Non-Rebreather 15.0 06/02/16 20:37 36.7 91 20 117/62 98 Nasal Cannula 6.0 06/02/16 20:05 90 16 98 Non-Rebreather 15.0 06/02/16 20:00 Non-Rebreather 15.0 06/02/16 16:00 Non-Rebreather 15.0 06/02/16 15:13 36.7 97 16 128/55 97 06/02/16 14:26 91 16 100 Non-Rebreather 15.0 06/02/16 12:00 Non-Rebreather 15.0 06/02/16 11:42 36.6 90 16 128/72 100 Lab Results: Results Past 24 Hours Test 06/02/16 11:23 06/02/16 16:11 06/02/16 20:25 06/03/16 07:36 Range/Units Bedside Glucose 176 185 190 70-90 mg/dl White Blood Count 15.49 4.8-10.8 K/uL Red Blood Count 3.59 4.2-5.4 M/uL Hemoglobin 10.0 12.0-16.0 g/dL Hematocrit 32.2 37-47 % Mean Corpuscular Volume 89.7 80-100 fL Mean Corpuscular Hemoglobin 27.9 25-34 pg Mean Corpuscular Hemoglobin Concent 31.1 32-36 g/dl RDW Standard Deviation 49.4 36.4-46.3 fL RDW Coefficient of Variation 15.0 11.5-14.5 % Platelet Count 350 130-400 K/uL Mean Platelet Volume 9.8 7.4-10.4 fL Sodium Level 137 136-145 mmol/L Potassium Level 3.7 3.5-5.1 mmol/L Chloride Level 99 98-107 mmol/L Carbon Dioxide Level 34 21-32 mmol/L Anion Gap 4.0 3-11 mmol/L Blood Urea Nitrogen 40 7-18 mg/dl Creatinine 1.10 0.60-1.20 mg/dl Est Creatinine Clear Calc Drug Dose 53.9 ml/min Estimated GFR () 57.7 Estimated GFR (Non- 49.8 BUN/Creatinine Ratio 36.7 10-20 Random Glucose 67 70-99 mg/dl Calcium Level 9.0 8.5-10.1 mg/dl Alanine Aminotransferase (ALT/SGPT) 26 12-78 U/L Albumin 3.1 3.4-5.0 gm/dl Test 06/03/16 07:50 06/03/16 08:20 Range/Units Bedside Glucose 70 84 70-90 mg/dl
[2016-06-03] MEDS ORDERED: POLYETHYLENE (MIRALAX) 17 GM PACK PO PRN (09:30)
[2016-06-03 09:41] LABS: ALB/GLOB RATIO 0.9 (0.9-2)
[2016-06-03] MEDS: METOPROLOL SUCC 25MG EXT REL TAB PO SCH ×2 (09:51→20:38)
[2016-06-03] MEDS: INSULIN GLARGINE SOLOSTAR 100 UNITS/ML 3 ML PEN SC SCH (09:51)
[2016-06-03] MEDS: VENLAFAXINE HCL 50 MG TAB PO SCH (09:51)
[2016-06-03] MEDS: INSULIN ASPART 100 UNITS/ML 3 ML PEN SC SCH ×4 (09:52→20:42)
[2016-06-03] MEDS: SPIRONOLACTONE 25 MG TAB PO SCH (09:54)
[2016-06-03] MEDS: LEVOTHYROXINE 112 MCG TAB PO SCH (09:54)
[2016-06-03] MEDS: RIFAXIMIN TAB 550 MG TAB PO SCH ×2 (09:54→20:37)
--- NOTE | 2016-06-03 11:36 | PULMONARY PROGRESS NOTE ---
DATE: 06/03/2016 TIME: 11:00 a.m. SUBJECTIVE: The patient is generally feeling much better. Her breathing is improved since she had the left-sided thoracentesis. She was having pain following the thoracentesis, but that has resolved. She is not coughing much. OBJECTIVE: GENERAL: The patient appeared comfortable. She was sleeping when I came in, but aroused readily. She was sitting in a chair. HEENT: Eye exam showed evidence of prior cataract surgery with implants. This was bilateral. Nares were clear. Mouth exam showed no acute findings. NECK: Palpation in the neck reveals no lymph nodes. CHEST: Inspection of the chest reveals a dorsal kyphosis. VITAL SIGNS: Temperature 37 degrees. Heart rate is 90 beats per minute. Blood pressure 129/68. Respiratory rate was 18 breaths per minute. Rales are heard in both lung willis posteriorly. Saturation was 97% on a nasal cannula. ABDOMEN: Somewhat obese. Bowel sounds were present. EXTREMITIES: Showed trace edema. The patient still has a Rodas catheter in place. LABORATORY DATA: White count today is elevated at 15.49. Hemoglobin is 10. Platelets 350,000. Review of the patient's blood gases which were done twice with the most recent being May 29 shows that she does have elevation of carbon dioxide levels at 51. The pH was 7.38 and pO2 was 88 on 1.5 liter nasal cannula. Electrolytes today show sodium 137, potassium 3.7, chloride 99, and bicarbonate 34. BUN is 40 with a creatinine of 1.1. Pleural fluid triglycerides were modestly elevated at 225. Pleural LDH was 73 and pleural protein was 2.0. These would be most compatible with a transudate. Pleural fluid culture has shown no growth to date. IMPRESSION: 1. Respiratory failure with hypercarbia. 2. Left pleural effusion -- chylous. 3. Left pneumothorax. 4. Right pleural effusion. COMMENTS AND RECOMMENDATIONS: The case was discussed with Dr. Foster. She is a difficult management case. She clinically seems stable. An x-ray is being planned for tomorrow. She may be ready for discharge soon. She will need followup x-rays to be certain that the effusion in the left is not recurring and that the effusion in the right is not enlarging. The pleural fluid cytology is still pending. Hopefully, her pneumothorax is less tomorrow. If it is clearly declining and if she is stable, we would have no objection to discharge. SHARMILA
[2016-06-03] MEDS: BISACODYL 5 MG TABEC PO SCH (20:37)
[2016-06-03] MEDS: DOCUSATE SODIUM 100 MG CAP PO SCH (20:37)
[2016-06-03] MEDS: TRAVOPROST Z 0.004% OPH SOLN 2.5 ML BTL OPB SCH (20:38)
[2016-06-03] MEDS: ATORVASTATIN 40 MG TAB PO SCH (20:38)
[2016-06-04] VITALS (15 sets, daily range): BP systolic 119–148; BP diastolic 52–67; PULSE 76–89; TEMP 36.5–36.8; O2SAT 94–98
[2016-06-04] MEDS: IPRATROPIUM BROMIDE NEB SOLN 0.02% 2.5 ML VIAL INH SCH ×4 (02:26→20:05)
[2016-06-04] MEDS: LEVALBUTEROL 1.25MG/0.5ML NEB INH SCH ×4 (02:26→20:05)
[2016-06-04] MEDS: FUROSEMIDE INJ 20 MG in SYRINGE 0 ML IV SCH ×2 (05:55→14:07)
--- NOTE | 2016-06-04 07:47 | DIAGNOSTIC IMAGING REPORT ---
CHEST ONE VIEW PORTABLE HISTORY: Follow up- Pneumothorax COMPARISON: Chest 06/01/2016. FINDINGS: Tiny left apical pneumothorax remaining with a pleural gap of 2 mm. Moderate pulmonary edema persists. Small bilateral pleural effusions, left greater the right or again noted. The heart remains enlarged. There is a left shoulder prosthesis. Left basilar densities consistent with subsegmental atelectasis. IMPRESSION: Decrease in size in a tiny left apical pneumothorax. Pulmonary edema and small bilateral pleural effusions persist. Electronically signed by: Armando Dunbar M.D. 06/04/2016 7:46 AM Dictated Date/Time: 06/04/2016 7:44 AM
[2016-06-04 07:54] LABS: BUN/CREATININE RATIO 37.3 (10-20); CREATININE 1.2 mg/dl (0.60-1.20); POTASSIUM 3.7 mmol/L (3.5-5.1)
[2016-06-04] MEDS: DOCUSATE SODIUM 100 MG CAP PO SCH ×2 (08:17→21:00)
[2016-06-04] MEDS: BISACODYL 5 MG TABEC PO SCH ×2 (08:17→21:05)
[2016-06-04] MEDS: VENLAFAXINE HCL 50 MG TAB PO SCH (08:18)
[2016-06-04] MEDS: SPIRONOLACTONE 25 MG TAB PO SCH (08:18)
[2016-06-04] MEDS: RIFAXIMIN TAB 550 MG TAB PO SCH ×2 (08:19→21:01)
[2016-06-04] MEDS: METOPROLOL SUCC 25MG EXT REL TAB PO SCH ×2 (08:19→21:06)
[2016-06-04] MEDS: LEVOTHYROXINE 112 MCG TAB PO SCH (08:19)
[2016-06-04] MEDS: INSULIN ASPART 100 UNITS/ML 3 ML PEN SC SCH ×4 (08:36→21:04)
--- NOTE | 2016-06-04 09:34 | Progress Note ---
Internal Med Progress Note Date of Service: Jun 04, 2016. Provider Documentation: SUBJECTIVE: Patient is feeling much better today. SOB has improved, ambulated with RN and feels like she is back to her baseline. No worsening of cough from baseline, able to bring up more sputum. Denies any abdominal pain, nausea, vomiting, fever, chills, chest pain. Had a small BM yesterday. Foleys in situ On 3 L oxygen- 95% OBJECTIVE: Vital Signs-as noted below Exam: General Appearance: Moderately built and nourished, no apparent distress Head: Normocephalic, Atraumatic Eyes: anicteric Neck: supple Respiratory/Chest: Decreased breath sounds B/L Right > left, few crackles- improved; No accessory muscle use Cardiovascular: S1, S2, NSR, No murmur Abdomen/GI:Soft, Non tender, distended, Bowel sounds present Extremities/Musculoskelatal: Chronic changes, No edema Neurologic/Psych:AAOX3, grossly no focal neurological deficits Lab data as noted below. ASSESSMENT & PLAN: ASSESSMENT & PLAN : ACUTE HYPOXIC RESPIRATORY FAILURE : Improved and near her baseline MULTIFACTORIAL: LEFT PLEURAL EFFUSION/ VOLUME OVERLOAD IN SETTING OF GRAHAM / DIASTOLIC CHF / MILD COPD EXACERBATION H/O MEDICATION NON COMPLIANCE: Patient self stopped her Lasix 2 weeks ago . Pt presented with increasing shortness of breath x 1 1/2 months; 74% on RA in ED -S/P Left thoracentesis - 1.4 L on 06/01/16---> Chylous effusion. Pneumothorax small post procedure -IV lasix - Restarted on 06/01 after holding it for 2 days due to elevated creatinine. 20 mg BID and aldactone 50 mg -Work up - CXR : CHF and left pleural effusion likely reactionary from GRAHAM; Last ECHO:02/2014: EF > 70% -Pulmonary - discussed with Dr Soto PLEURAL EFFUSION- Likely Chylous On presentation had a significant Left pleural effusion- 1.5 L--> initially hesitant about thoracentesis as risk of infection/malnutrition with removal of protein in cirrhotic patient per pulmonary--> went into respiratory distress and thus did Left thoracentesis on 06/01/16 removing 1.4 litres--> Likely Chylous effusion- TGS- 225, Protein -2.0, LDH- 73, WBC-123 -Next day CXR- Slight worsening of Right pleural effusion., Etiology ? Probably chylous -Ascitic fluid per paracentesis on presentation appeared chylous too (no TGS sent) -Not sure about etiology. 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 Plan is follow up with Dr Perkins outpatient - Monitor Right pleural effusion and if worsens, consider thoracentesis in future. SMALL PNEUMOTHORAX POST THORACENTESIS - Improved -Per CXR post procedure, per CT scan chest today- slight worsening of pneumothorax -NRB/100% Oxygen -Repeat CXR today shows improvement in pneumothorax compared to yesterday. -Cleared for discharge per pulmonary ASCITES: (MILD) S/P Paracentesis ON 05/29/16- 100 CC Chylous fluid per appearance, WBC < 500 -No SBP but was on antibiotics prior to paracentesis. -IV rocephin 2 gram daily for prophylaxis x Day 5/ 5 days per GI (Last dose on ). S/P IV Albumin bid -Re started IV lasix/Aldactone as above on 06/01/16 per nephrology--> Change to PO lasix 80 mg -US abdomen- reviewed. 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 Was held x 2 days due to elevated creatinine -Monitor creatinine. Appreciate nephrology inputs ACUTE HEPATIC ENCEPHALOPATHY/GRAHAM - Mental status back to baseline, AAOX2- Resolved Pt did not take lactulose, Rifaximin secondary to fecal incontinence Ammonia levels elevated at 62 -Unable to tolerate lactulose, so dulcolax, miralex, colace + to maintain 2-3 BMS daily. Continue with Rifaximin -GI following- discussed. Appreciate inputs S/P DIARRHEA - Now constipated S/P Lactulose- not able to tolerate it well due to nausea and GI symptoms -KUB - no acute abnormalities; CT ABD: as below (Mild periaortic and mesenteric adenopathy somewhat progressive from the prior study) -C diff negative, Stool studies- negative DM II Uncontrolled Last A1c: 9.9 02/2016 Continue ISS, Lantus HYPOTHYROIDISM: Continue Levothyroxine PAROXYSMAL AFIB currently in NSR; rate controlled -Continue beta moises -Not on anticoagulated due to anemia/GI bleeding DVT PROPHYLAXIS -SCDs due to hx varices, anemia, GI bleeding CODE STATUS -Full code DISPOSITION: Eager to be discharged today Cleared for discharge per pulmonary PT/OT on board- Will ask for re evaluation today due to prolonged hospitalization Will likely need oxygen prior to discharge. Likely discharge today Vital Signs: Date Time Temp Pulse Resp B/P Pulse Ox O2 Delivery O2 Flow Rate FiO2 06/04/16 07:50 36.5 85 16 134/67 95 3.0 06/04/16 07:35 82 16 97 Nasal Cannula 3.0 06/04/16 07:35 94 Non-Rebreather 2.0 06/04/16 04:37 36.5 87 18 119/52 94 Nasal Cannula 3.0 06/04/16 04:00 98 Nasal Cannula 2.0 06/04/16 02:26 88 16 95 Nasal Cannula 3.0 06/04/16 00:00 98 Nasal Cannula 3.0 06/03/16 23:33 36.4 81 18 113/52 96 Nasal Cannula 3.0 06/03/16 20:04 36.0 85 18 125/57 100 Nasal Cannula 4.0 06/03/16 20:03 84 16 99 Nasal Cannula 4.0 06/03/16 20:00 Nasal Cannula 3.0 06/03/16 16:09 36.5 86 18 129/63 98 3.0 06/03/16 16:00 98 Nasal Cannula 3.0 06/03/16 14:19 86 16 98 Nasal Cannula 6.0 06/03/16 12:10 36.8 83 18 115/65 100 5.0 06/03/16 12:00 Non-Rebreather 15.0 Lab Results: Results Past 24 Hours Test 06/03/16 11:54 06/03/16 16:25 06/03/16 20:35 06/04/16 07:15 Range/Units Bedside Glucose 74 122 147 70-90 mg/dl Sodium Level 137 136-145 mmol/L Potassium Level 3.7 3.5-5.1 mmol/L Chloride Level 97 98-107 mmol/L Carbon Dioxide Level 37 21-32 mmol/L Anion Gap 3.0 3-11 mmol/L Blood Urea Nitrogen 45 7-18 mg/dl Creatinine 1.20 0.60-1.20 mg/dl Est Creatinine Clear Calc Drug Dose 49.4 ml/min Estimated GFR () 51.9 Estimated GFR (Non- 44.8 BUN/Creatinine Ratio 37.3 10-20 Random Glucose 81 70-99 mg/dl Calcium Level 9.0 8.5-10.1 mg/dl Test 06/04/16 07:28 Range/Units Bedside Glucose 79 70-90 mg/dl
--- NOTE | 2016-06-04 10:58 | PULMONARY PROGRESS NOTE ---
DATE: 06/04/2016 TIME: 10:25 a.m. SUBJECTIVE: The patient was once again asleep when I came into her room. She awakened readily. She denies significant shortness of breath. She feels pretty good. She has an occasional cough. She said she has been having blood in her sputum but she believes it is coming from her nose. She has had definite nose bleeding. She believes that she feels much better than she did before coming to the hospital and almost as good as she is at baseline. OBJECTIVE: GENERAL: The patient is comfortable at rest. VITAL SIGNS: Temperature is 36.5. NECK: She has a very large neck. HEART: Rate is 85 per minute. Blood pressure 134/67. LUNGS: Lung willis revealed diminished breath sounds bilaterally. No wheezing was heard. Respiratory rate was 18 breaths per minute. I took her oxygen off. In approximately 4-5 minutes on room air, her saturations were down to 87%. She obviously needs oxygen at home. ABDOMEN: Obese. Bowel sounds were present. There was no tenderness to palpation. EXTREMITIES: Showed bilateral skin changes with purple to red skin discoloration of the lower legs. This is chronic. LABORATORY DATA: Electrolytes show sodium 137, potassium 3.7, chloride 97, bicarb 37. The BUN is 45. Baseline BUN on admission was 17. Creatinine today is 1.2 and her baseline creatinine had been the same. Chest x-ray today showed that the left pneumothorax is smaller and is now very small. The x-ray was not of good quality to well assess the parenchymal findings. I spoke with the patient about her sleepiness. She tells me she is sleepy on a regular basis at home. She sleeps all day sometimes. She generally has no difficulty falling asleep at night. She will awaken once per night to go to the bathroom. She admits to dozing off and on throughout the day. She has never had a sleep study but one had been scheduled for her previously but then canceled. I would suggest that the sleep study be done because I believe she likely has sleep apnea and this may be contributing to her breathing difficulties and elevation of carbon dioxide levels. IMPRESSION: 1. Respiratory failure with hypercarbia and hypoxia. 2. Left pleural effusion -- chylous. 3. Left pneumothorax. 4. Right pleural effusion. 5. Suspect obstructive sleep apnea. COMMENTS AND RECOMMENDATIONS: The patient seems to be stable. I have no objection to discharge when desired. In addition to her followup with Dr. Perkins, I would suggest a sleep study be done. The patient will need home oxygen.
--- NOTE | 2016-06-04 14:38 | Pharmacy Progress Note ---
Glycemic Control: Progress Nt Date of Service Jun 04, 2016. Scope Glycemic Pharmacist consulted by JULIO C Sanabria on 05/28/16 for glycemic control and to write orders per [facility] inpatient glycemic control protocol. Objective Accuchecks BSG (last 24hrs): Test 06/03/16 16:25 06/03/16 20:35 06/04/16 07:15 06/04/16 07:28 Bedside Glucose 122 mg/dl (70-90) 147 mg/dl (70-90) 79 mg/dl (70-90) Random Glucose 81 mg/dl (70-99) Test 06/04/16 11:29 Bedside Glucose 112 mg/dl (70-90) Laboratory Data (last 24hrs) Test 06/04/16 07:15 Anion Gap 3.0 mmol/L BUN/Creatinine Ratio 37.3 Blood Urea Nitrogen 45 mg/dl Creatinine 1.20 mg/dl Potassium Level 3.7 mmol/L Sodium Level 137 mmol/L HbA1c: Test 05/30/16 05:56 Hemoglobin A1c 7.8 % (4.5-5.6) H Recent Pertinent Medications Outpatient Anti-diabetic Regimen: * Lantus 45 units BID, Novolog 30units AC + 20 units with snacks * A1c = 7.8 % 05/30/16 Risk Factors for Insulin Resistance: * Steroids: Steroid taper * Infection: Rocephin * IVF:Fluid restricted, Lasix IV bid * Diet: DM2/AHA/Moiz/Fluid restriction Assessment & Plan ASSESSMENT: * ADA & AACE recommend a goal blood sugar range 140-180 mg/dl for the majority of critically ill & non-critically ill patients. However, more stringent targets may be selected in individual cases. Will utilize more stringent goal range of 120-160mg/dl based on tight degree of outpatient control. 05/31/16: * 75yo T2DM female with well controlled diabetes as an outpatient per recent A1c * Pt with sustained moderate-severe hyperglycemia secondary to large dose of Solumedrol given 05/28 followed by prednisone 40mg daily. * Prednisone dose is tapering to 20mg daily, expect BSGs to improve with this step down in steroid dosing * AM fasting BSGs are in goal range indicating adequate basal insulin dosing - will continue current dosing which is c/w outpatient dosing * BSGs trend upwards throughout the day indicating more prandial coverage needed, however, prednisone dose cut in half today. Expect improvement with decreased steroids. Will empirically decrease CF/CR slightly to prevent hypo. 06/01/16: * BSG control worsened since yesterday morning. BSGs have been > 200 mg/dl since bedtime yesterday. * Adjustments were made to Novolog parameters in response to tapering down of steroids. However, it appears tighter Novolog parameters are still needed. * Continue current Lantus dosing * Of note, the pt does require much looser Novolog parameters when steroids are absent (per past admission data). 06/02/16: * Patient received a total of 111 units of insulin over the past 24 hours; BSGs sustained in low-mid 200's * Fasting BSG this AM 169 mg/dL * Continue Lantus as Fasting BSG better today then yesterday * Novolog re-tightened yesterday- continue for now with the exception of changing goal range to 100-140 mg/dL 06/04/16 * Over the pat 48 hours insulin requirements have been cut in half * On 06/02, patient required 115 units and on 06/03 she required 57 units with BSGs ranging 70-147 mg/dL * I held subsequent Lantus dosing, and will change ongoing orders to scale dosing based on HS BSG to ensure she only gets Lantus if necessary * I loosened Novolog yesterday which seems to be the right dose for now * As we near the end of the steroid taper, patient may require further "loosening" of regimen tomorrow PLAN FOR INPATIENT GLYCEMIC CONTROL: * Continue Basal insulin with LANTUS BID based on BSG * If BSG <120, give 0 units * If BSG 121-180 mg/dL, give 20 units * If BSG >181 mg/dL, give 40 units * Correctional Insulin with NOVOLOG per scale ACHS or Q6hrs while NPO * Goal Range: Low 100 mg/dL - High 140 mg/dL * CONTINUE Correction Factor: 15 mg/dL/unit * CONTINUE Nutritional / Prandial insulin per carb ratio of 1 unit per 5 grams CHO consumed * Please note that the plan above was derived based on current level of insulin resistance and hospital stress. These recommendations are appropriate for inpatient admission only. Plan of care upon discharge will need to be reassessed to avoid potential outpatient hypo/hyperglycemia. Thank you.
[2016-06-04] MEDS ORDERED: CLC100 PO (15:55)
[2016-06-04] MEDS ORDERED: DLC5 PO (15:55)
[2016-06-04] MEDS ORDERED: NVLG SQ (16:00)
--- NOTE | 2016-06-04 16:05 | Discharge Instructions ---
Discharge Instructions Admission Reason for Admission: SOB Discharge Discharge Diagnosis / Problem: 1. Acute hypoxic respiratory failure 2. Pleural effusion left and right Discharge Goals Goal(s): Improve disease control, Diagnostic testing, Therapeutic intervention , Prevent Disease Progression Activity Recommendations Activity Limitations: resume your previous activity (as tolerated. PT/OT recommended) . Instructions / Follow-Up Instructions / Follow-Up MEDICATION CHANGES: 1. Decrease Insulin from 30 units with meals to 10 units with meals 2. Bowel regimen as instructed, as you cannot tolerate Lactulose need to use other medications to have at least 2-3 BMs daily to prevent hepatic encephalopathy complication OXYGEN Use 2 L with activity 1 L at rest -Need sleep study outpatient HOME PT/OT RECOMMENDED FOLLOW UP 1. Follow up with Dr Alba 06/09/16 AT 12:[address] Perkins (pulmonary) in 2 weeks Current Hospital Diet Patient's current hospital diet: Diabetes Type 2 Diet, Low Sodium Diet (2gm Na) , AHA Diet (Heart Healthy) Discharge Diet Recommended Diet: AHA Diet (Heart Healthy), Low Sodium Diet (2gm Na), Diabetes Type 2 Diet Fluid Restriction: 1500 ml (6 cups) Pending Studies Studies pending at discharge: no Laboratory Results Hemoglobin A1c Test 05/30/16 05:56 Range/Units Estimated Average Glucose 177 mg/dl Hemoglobin A1c 7.8 H 4.5-5.6 % Medical Emergencies . Who to Call and When: Medical Emergencies: If at any time you feel your situation is an emergency, please call 911 immediately. . Non-Emergent Contact Non-Emergency issues call your: Primary Care Provider Call Non-Emergent contact if: temperature is above 101.5 . . "Provider Documentation" section prepared by Elen Foster. VTE Core Measure Inpt VTE Proph given/why not?: T.E.D. Stockings, SCD's, Contraindicated (hx of gi bleeding)
[2016-06-04] MEDS: TRAVOPROST Z 0.004% OPH SOLN 2.5 ML BTL OPB SCH (21:00)
[2016-06-04] MEDS: INSULIN GLARGINE SOLOSTAR 100 UNITS/ML 3 ML PEN SC SCH (21:02)
[2016-06-04] MEDS: ATORVASTATIN 40 MG TAB PO SCH (21:05)
[2016-06-05] VITALS (8 sets, daily range): BP systolic 114–134; BP diastolic 57–66; PULSE 75–85; TEMP 36.4–36.9; O2SAT 91–98
[2016-06-05] MEDS: IPRATROPIUM BROMIDE NEB SOLN 0.02% 2.5 ML VIAL INH SCH ×2 (02:30→07:33)
[2016-06-05] MEDS: LEVALBUTEROL 1.25MG/0.5ML NEB INH SCH ×2 (02:30→07:33)
[2016-06-05] MEDS: FUROSEMIDE INJ 20 MG in SYRINGE 0 ML IV SCH (06:09)
[2016-06-05] MEDS: LEVOTHYROXINE 112 MCG TAB PO SCH (08:32)
[2016-06-05] MEDS: BISACODYL 5 MG TABEC PO SCH (08:32)
[2016-06-05] MEDS: RIFAXIMIN TAB 550 MG TAB PO SCH (08:32)
[2016-06-05] MEDS: VENLAFAXINE HCL 50 MG TAB PO SCH (08:33)
[2016-06-05] MEDS: ASPIRIN 81 MG ECTAB PO SCH (08:33)
[2016-06-05] MEDS: METOPROLOL SUCC 25MG EXT REL TAB PO SCH (08:33)
[2016-06-05] MEDS: SPIRONOLACTONE 25 MG TAB PO SCH (08:33)
[2016-06-05] MEDS: DOCUSATE SODIUM 100 MG CAP PO SCH (08:33)
[2016-06-05] MEDS: INSULIN ASPART 100 UNITS/ML 3 ML PEN SC SCH ×2 (08:35→12:13)
[2016-06-05] MEDS: INSULIN GLARGINE SOLOSTAR 100 UNITS/ML 3 ML PEN SC SCH (08:36)
[2016-06-05 09:21] LABS: HEMATOCRIT 29.9 % (37-47); MEAN CELL VOLUME 87.2 fL (80-100); MEAN CORPUSCULAR HEMOGLOBIN 28.3 pg (25-34); MEAN CORPUSCULAR HGB CONC 32.4 g/dl (32-36); MEAN PLATELET VOLUME 9.6 fL (7.4-10.4); PLATELET COUNT 329 K/uL (130-400); RED BLOOD COUNT 3.43 M/uL (4.2-5.4)
--- NOTE | 2016-06-05 10:44 | Progress Note ---
Internal Med Progress Note Date of Service: Jun 05, 2016. Provider Documentation: SUBJECTIVE: Patient is feeling much better today. SOB has improved, ambulated well and feels like she is back to her baseline. No worsening of cough from baseline, able to bring up more sputum. Denies any abdominal pain, nausea, vomiting, fever, chills, chest pain. Had BM yesterday On 1 L oxygen- 92% OBJECTIVE: Vital Signs-as noted below Exam: General Appearance: Moderately built and nourished, no apparent distress Head: Normocephalic, Atraumatic Eyes: anicteric Neck: supple Respiratory/Chest: Decreased breath sounds B/L Right > left; No accessory muscle use Cardiovascular: S1, S2, NSR, No murmur Abdomen/GI:Soft, Non tender, distended, Bowel sounds present Extremities/Musculoskelatal: Chronic changes, No edema Neurologic/Psych:AAOX3, grossly no focal neurological deficits Lab data as noted below. ASSESSMENT & PLAN: ASSESSMENT & PLAN : ACUTE HYPOXIC RESPIRATORY FAILURE : Improved and near her baseline MULTIFACTORIAL: LEFT PLEURAL EFFUSION/ VOLUME OVERLOAD IN SETTING OF GRAHAM / DIASTOLIC CHF / MILD COPD EXACERBATION H/O MEDICATION NON COMPLIANCE: Patient self stopped her Lasix 2 weeks ago [employer] . Pt presented with increasing shortness of breath x 1 1/2 months; 74% on RA in ED -S/P Left thoracentesis - 1.4 L on 06/01/16---> Chylous effusion. Pneumothorax small post procedure -On oxygen (newly started- 1 L at rest/2 L on activity) -IV lasix - Restarted on 06/01 after holding it for 2 days due to elevated creatinine. 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 Probably chylous -Ascitic fluid per paracentesis on presentation appeared chylous too (no TGS sent) -Not sure about etiology. 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 Plan is follow up with Dr Perkins outpatient - Monitor Right pleural effusion and if worsens, consider thoracentesis in future. SMALL PNEUMOTHORAX POST THORACENTESIS - Improved -Per CXR post procedure, per CT scan chest today- slight worsening of pneumothorax -NRB/100% Oxygen -Repeat CXR yesterday 06/04 shows improvement in pneumothorax. -Cleared for discharge per pulmonary ASCITES: (MILD) S/P Paracentesis ON 05/29/16- 100 CC Chylous fluid per appearance, WBC < 500 -No SBP but was on antibiotics prior to paracentesis. -S/P IV rocephin 2 gram daily for prophylaxis x Day 5/ 5 days per GI (Last dose on 06/02/16). S/P IV Albumin bid -Re started IV lasix/Aldactone as above on 06/01/16 per nephrology--> Changed to PO lasix 80 mg/Aldactone 50 mg - home doses -US abdomen- reviewed. 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 Was held x 2 days due to elevated creatinine -Monitor creatinine. Appreciate nephrology inputs ACUTE HEPATIC ENCEPHALOPATHY/GRAHAM - Mental status back to baseline, AAOX2- Resolved Pt did not take lactulose, Rifaximin secondary to fecal incontinence Ammonia levels elevated at 62 -Unable to tolerate lactulose, so dulcolax, miralex, colace + to maintain 2-3 BMS daily. Continue with Rifaximin -GI following- discussed. Appreciate inputs. Cleared for discharge. Follow up outpatient with GI S/P DIARRHEA --->onstipated S/P Lactulose- not able to tolerate it well due to nausea and GI symptoms -KUB - no acute abnormalities; CT ABD: as below (Mild periaortic and mesenteric adenopathy somewhat progressive from the prior study) -C diff negative, Stool studies- negative DM II Uncontrolled Last A1c: 9.9 02/2016 -Lantus to be continued at 45 units BID, Aspart decreased to 10 units TID with meals from 30 units on basis of sugar results inpatient. Re evaluate and may need to go back up on dose, if blood glucose uncontrolled HYPOTHYROIDISM: -Continue Levothyroxine PAROXYSMAL AFIB currently in NSR; rate controlled -Continue beta moises -Not on anticoagulated due to anemia/GI bleeding DVT PROPHYLAXIS -SCDs due to hx varices, anemia, GI bleeding CODE STATUS -Full code DISPOSITION: Eager to be discharged today Cleared for discharge per pulmonary PT/OT on board- Re evaluated- recommends Home with [facility]- PT/OT Oxygen prior to discharge -arrangements per [place] to discharge today Vital Signs: Date Time Temp Pulse Resp B/P Pulse Ox O2 Delivery O2 Flow Rate FiO2 06/05/16 07:34 36.6 82 18 129/63 91 1.0 06/05/16 07:33 82 16 92 Nasal Cannula 1.0 06/05/16 04:28 36.9 81 18 134/66 94 2.0 06/05/16 04:05 96 Nasal Cannula 1.0 06/05/16 02:30 85 16 94 Nasal Cannula 1.0 06/05/16 00:05 96 Nasal Cannula 1.0 06/04/16 23:37 36.8 89 18 136/66 94 Nasal Cannula 1.0 06/04/16 20:14 36.7 80 18 148/53 96 Nasal Cannula 2.0 06/04/16 20:10 76 16 97 Nasal Cannula 2.0 06/04/16 20:05 96 Nasal Cannula 1.0 06/04/16 15:59 36.5 83 20 119/57 96 Nasal Cannula 2.0 06/04/16 15:33 94 Nasal Cannula 2.0 06/04/16 14:33 82 16 98 Nasal Cannula 3.0 06/04/16 12:58 94 Nasal Cannula 2.0 06/04/16 11:50 36.7 79 18 123/62 95 2.0 Lab Results: Results Past 24 Hours Test 06/04/16 11:29 06/04/16 16:10 06/04/16 20:27 06/05/16 07:25 Range/Units Bedside Glucose 112 184 238 153 70-90 mg/dl Test 06/05/16 09:10 Range/Units White Blood Count 12.00 4.8-10.8 K/uL Red Blood Count 3.43 4.2-5.4 M/uL Hemoglobin 9.7 12.0-16.0 g/dL Hematocrit 29.9 37-47 % Mean Corpuscular Volume 87.2 80-100 fL Mean Corpuscular Hemoglobin 28.3 25-34 pg Mean Corpuscular Hemoglobin Concent 32.4 32-36 g/dl RDW Standard Deviation 48.5 36.4-46.3 fL RDW Coefficient of Variation 15.0 11.5-14.5 % Platelet Count 329 130-400 K/uL Mean Platelet Volume 9.6 7.4-10.4 fL
--- NOTE | 2016-06-05 10:52 | Discharge Summary ---
Discharge Summary Date of Service Jun 05, 2016. Discharge Summary Admission Date: May 28, 2016 at 14:01 Discharge Date: Jun 05, 2016 Discharge Disposition: Home with services (with PT/OT) Principal Diagnosis: 1. Acute hypoxic respiratory failure, multifactorial 2. 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 Right pleural effusion 4. Small pneumothorax post left thoracentesis, stable 5. Acute hepatic encephalopathy, resolved 6. NESTOR on CKD-IV 7. Mild Ascites with hx of cirrhosis of liver Secondary Diagnoses/Problems: 1. DM-II 2. Atrial Fibrillation 3. Hypothyroidism Procedures: -Tele monitoring -Left thoracentesis (1400 CC) on 06/01/16 -Paracentesis - mild ascites (100 cc only) on 05/29/16 -CT chest x 2 -CT abd/pelvis -US abdomen -IV diuretics -IV antibiotics (SBP prophylaxis x 5 days) -Rodas catheter f/b removal -PT/OT Consultations: GI Pulmonary Nephrology Pending Studies/Follow-Up: Instructions / Follow-Up MEDICATION CHANGES: 1. Decrease Insulin from 30 units with meals to 10 units with meals 2. Bowel regimen as instructed, as you cannot tolerate Lactulose need to use other medications to have at least 2-3 BMs daily to prevent hepatic encephalopathy complication OXYGEN Use 2 L with activity 1 L at rest -Need sleep study outpatient HOME PT/OT RECOMMENDED FOLLOW UP 1. Follow up with Dr Alba 06/09/16 AT 12:[address] Perkins (pulmonary) in 2 weeks Medication Reconciliation New Medications: Bisacodyl (Bisacodyl EC) 5 Mg Tabec 5 MG PO BID PRN for constipation for 10 Days Docusate Sodium (Docusate Sodium) 100 Mg Cap 100 MG PO BID for 20 Days, #40 CAP Changed Medications: Insulin Aspart (Novolog) 100 Units/Ml Inj 10 UNITS SQ ACHS for 30 Days (Changed from: 30 UNITS; AC) Continued Medications: Albuterol Sulfate (Proair Respiclick) 108 Mcg/Act Aer 1-2 PUFFS INH Q4 PRN for Shortness of Breath Aspirin (Aspirin EC Low Dose) 81 Mg Ectab 81 MG PO 3XWK Atorvastatin (Lipitor) 80 Mg Tab 80 MG PO QPM, TAB Furosemide (Lasix) 80 Mg Tab 80 MG PO DAILY, TAB Insulin Glargine (Lantus) 100 Unit/Ml Inj 45 UNITS SC BID, VIAL Levothyroxine Sodium (Levothyroxine Sodium) 112 Mcg Tab 1 TAB PO QAM for 90 Days, #90 TAB 3 Refills Metoprolol Succ (Toprol Xl) (Toprol-Xl) 25 Mg Tabcr 25 MG PO BID, #30 TAB Rifaximin (Xifaxan) 550 Mg Tab 550 MG PO BID, TAB Spironolactone (Aldactone) 50 Mg Tab 50 MG PO QAM, TAB Travoprost (Travatan Z) 0.004 % Deonte 1 DROPS OPB HS, #1 BTL 5 Refills Venlafaxine Hcl (Effexor) 100 Mg Tab 100 MG PO QAM, TAB Discontinued Medications: Prednisone Tab (Prednisone) 10 Mg Tab 20 MG PO UD, TAB on taper - 40mg x 2 days, 20 mg x 5 days Admission Information HPI (per Admitting provider): 75 year old female who presents to the ER with shortness of breath. Patient reports her symptoms have been going on for the past 1 1/2 months however have gotten acutely worse over the past 1-2 weeks. Patient was seen by her PCP [address] days [address] and was place on prednisone. She reports no improvement in her symptoms. She was seen in the clinic today and sent to the ER for further evaluation. Patient reports she initially was only short of breath with exertion however eventually became short of breath at rest and had difficulty speaking. She notes increasing abdominal distention and lower extremity edema. She stopped taking her Lasix 2 weeks ago because she was too short of breath to get to the bathroom. Patient also notes constipation. She is to take Lactulose for GRAHAM however reports she has not taken it in a while because she does not like the taste. She has been taking Dulcolax and miralax however it has not helped. She notes diarrhea the past two days. She denies BRPBR or dark tarry stools. She reports mild nausea but denies abdominal pain and vomiting. Patient and her note mild confusion over the past couple of weeks. No episodes of chest pain. She denies lightheadedness, dizziness, diaphoresis, or syncopal events. No fever or chills. She denies any urinary symptoms. In the ER, patient was hypoxic on room air at 74%. CXR is showing CHF and left pleural effusion. WBC 16K, lactic acid 2.4. She was given Zosyn, Levaquin, solumedrol, neb, and IVF. Physical Exam (per Admitting): General Appearance: + mild distress (mild conversational dyspnea noted) Head: normocephalic Eyes: normal inspection ENT: hearing grossly normal Neck: supple, no JVD Respiratory/Chest: + decreased breath sounds, + pertinent finding (mild conversational dyspnea) Cardiovascular: regular rate, rhythm, + pertinent finding (+1 pitting edema BLLE) Abdomen/GI: normal bowel sounds, non tender, + distended (firm) Extremities/Musculoskelatal: normal inspection, no calf tenderness Neurologic/Psych: no motor/sensory deficits, alert, normal mood/affect, oriented x 3 Skin: + pertinent finding (chronic venous changes and redness to BLLE) Hospital Course ASSESSMENT & PLAN : ACUTE HYPOXIC RESPIRATORY FAILURE : Improved and near her baseline MULTIFACTORIAL: LEFT PLEURAL EFFUSION/ VOLUME OVERLOAD IN SETTING OF GRAHAM / DIASTOLIC CHF / MILD COPD EXACERBATION H/O MEDICATION NON COMPLIANCE: Patient self stopped her Lasix 2 weeks ago [employer] . Pt presented with increasing shortness of breath x 1 1/2 months; 74% on RA in ED -S/P Left thoracentesis - 1.4 L on 06/01/16---> Chylous effusion. Pneumothorax small post procedure -On oxygen (newly started- 1 L at rest/2 L on activity) -IV lasix - Restarted on 06/01 after holding it for 2 days due to elevated creatinine. 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 Probably chylous -Ascitic fluid per paracentesis on presentation appeared chylous too (no TGS sent) -Not sure about etiology. 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 Plan is follow up with Dr Perkins outpatient - Monitor Right pleural effusion and if worsens, consider thoracentesis in future. SMALL PNEUMOTHORAX POST THORACENTESIS - Improved -Per CXR post procedure, per CT scan chest today- slight worsening of pneumothorax -NRB/100% Oxygen -Repeat CXR yesterday 06/04 shows improvement in pneumothorax. -Cleared for discharge per pulmonary ASCITES: (MILD) S/P Paracentesis ON 05/29/16- 100 CC Chylous fluid per appearance, WBC < 500 -No SBP but was on antibiotics prior to paracentesis. -S/P IV rocephin 2 gram daily for prophylaxis x Day 5/ 5 days per GI (Last dose on 06/02/16). S/P IV Albumin bid -Re started IV lasix/Aldactone as above on 06/01/16 per nephrology--> Changed to PO lasix 80 mg/Aldactone 50 mg - home doses -US abdomen- reviewed. 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 Was held x 2 days due to elevated creatinine -Monitor creatinine. Appreciate nephrology inputs ACUTE HEPATIC ENCEPHALOPATHY/GRAHAM - Mental status back to baseline, AAOX2- Resolved Pt did not take lactulose, Rifaximin secondary to fecal incontinence Ammonia levels elevated at 62 -Unable to tolerate lactulose, so dulcolax, miralex, colace + to maintain 2-3 BMS daily. Continue with Rifaximin -GI following- discussed. Appreciate inputs. Cleared for discharge. Follow up outpatient with GI S/P DIARRHEA --->onstipated S/P Lactulose- not able to tolerate it well due to nausea and GI symptoms -KUB - no acute abnormalities; CT ABD: as below (Mild periaortic and mesenteric adenopathy somewhat progressive from the prior study) -C diff negative, Stool studies- negative DM II Uncontrolled Last A1c: 9.9 02/2016 -Lantus to be continued at 45 units BID, Aspart decreased to 10 units TID with meals from 30 units on basis of sugar results inpatient. Re evaluate and may need to go back up on dose, if blood glucose uncontrolled HYPOTHYROIDISM: -Continue Levothyroxine PAROXYSMAL AFIB currently in NSR; rate controlled -Continue beta moises -Not on anticoagulated due to anemia/GI bleeding DVT PROPHYLAXIS -SCDs due to hx varices, anemia, GI bleeding CODE STATUS -Full code DISPOSITION: Eager to be discharged today Cleared for discharge per pulmonary PT/OT on board- Re evaluated- recommends Home with [facility]- PT/OT Oxygen prior to discharge -arrangements per SS OK to discharge today Discussed discharge plan with Total time spent on discharge = 45 minutes This includes examination of the patient, discharge planning, medication reconciliation, and communication with other providers. Discharge Instructions Goal(s): Improve disease control, Diagnostic testing, Therapeutic intervention , Prevent Disease Progression Activity Recommendations Activity Limitations: resume your previous activity (as tolerated. PT/OT recommended) . Instructions / Follow-Up Instructions / Follow-Up MEDICATION CHANGES: 1. Decrease Insulin from 30 units with meals to 10 units with meals 2. Bowel regimen as instructed, as you cannot tolerate Lactulose need to use other medications to have at least 2-3 BMs daily to prevent hepatic encephalopathy complication OXYGEN Use 2 L with activity 1 L at rest -Need sleep study outpatient HOME PT/OT RECOMMENDED FOLLOW UP 1. Follow up with Dr Alba 06/09/16 AT 12:[address] Perkins (pulmonary) in 2 weeks Current Hospital Diet Patient's current hospital diet: Diabetes Type 2 Diet, Low Sodium Diet (2gm Na) , AHA Diet (Heart Healthy) Discharge Diet Recommended Diet: AHA Diet (Heart Healthy), Low Sodium Diet (2gm Na), Diabetes Type 2 Diet Fluid Restriction: 1500 ml (6 cups) Pending Studies Studies pending at discharge: no Laboratory Results Hemoglobin A1c Test 05/30/16 05:56 Range/Units Estimated Average Glucose 177 mg/dl Hemoglobin A1c 7.8 H 4.5-5.6 % Medical Emergencies . Who to Call and When: Medical Emergencies: If at any time you feel your situation is an emergency, please call 911 immediately. . Non-Emergent Contact Non-Emergency issues call your: Primary Care Provider Call Non-Emergent contact if: temperature is above 101.5 . . "Provider Documentation" section prepared by Elen Foster. VTE Core Measure Inpt VTE Proph given/why not?: T.E.D. Stockings, SCD's, Contraindicated (hx of gi bleeding)
--- NOTE | 2016-06-05 17:39 | Nephrology Progress Note ---
Nephrology Progress Note Date of Service: Jun 05, 2016. Subjective feeling much improved; eating well; remains on 02NC; for d/c today Objective Date Time Temp Pulse Resp B/P Pulse Ox O2 Delivery O2 Flow Rate FiO2 06/05/16 11:47 36.4 75 18 114/57 98 2.0 06/05/16 10:55 36.6 82 18 91 Nasal Cannula 06/05/16 07:34 36.6 82 18 129/63 91 1.0 06/05/16 07:33 82 16 92 Nasal Cannula 1.0 06/05/16 04:28 36.9 81 18 134/66 94 2.0 06/05/16 04:05 96 Nasal Cannula 1.0 06/05/16 02:30 85 16 94 Nasal Cannula 1.0 06/05/16 00:05 96 Nasal Cannula 1.0 06/04/16 23:37 36.8 89 18 136/66 94 Nasal Cannula 1.0 06/04/16 20:14 36.7 80 18 148/53 96 Nasal Cannula 2.0 06/04/16 20:10 76 16 97 Nasal Cannula 2.0 06/04/16 20:05 96 Nasal Cannula 1.0 Physical Exam: GENERAL: Awake, alert, oriented x3. on 02NC; up in chair; not dyspneic w/ speech EYES: No scleral icterus. ENT: Moist mucous membranes. NECK: Supple. PULMONARY: moves almost no air on lung exam; no wheezes CARDIAC: RRR ABDOMEN: Bowel sounds positive though , taut, mildly distended. EXTREMITIES: trace edema BLE indurated NEUROLOGICALLY: marquez, fluent speech DERMATOLOGIC: No rash or ulcers noted. reddened/ indurated venous stasis changes BL ant shins Current Inpatient Medications Medications (Trade) Dose Ordered Sig/Virgil Route Start Time Stop Time Status Last Admin Dose Admin Acetaminophen (Tylenol Tab) 650 mg Q4H PRN PO 05/28/16 14:00 06/27/16 13:59 Ondansetron HCl (Zofran Inj) 4 mg Q6H PRN IV 05/28/16 14:00 06/27/16 13:59 06/01/16 08:31 4 MG Insulin Aspart (novoLOG ASPART) SLIDING SCALE If C... ACHS SC 05/28/16 16:00 06/27/16 15:59 06/05/16 12:13 16 UNITS Glucose (Glucose 40% Gel) 15-30 GRAMS 15 GRAMS... UD PRN PO 05/28/16 14:30 06/27/16 14:29 Glucose (Glucose Chew Tab) 4-8 Tablets 4 Tabl... UD PRN PO 05/28/16 14:30 06/27/16 14:29 Dextrose (Dextrose 50% 50ML Syringe) 25-50ML OF 50% DW IV FOR... UD PRN IV 05/28/16 14:30 06/27/16 14:29 Glucagon (Glucagon Inj) 1 mg UD PRN SQ 05/28/16 14:30 06/27/16 14:29 Miscellaneous Information (Consult Glycemic Management Pharmacy) 1 ea UD N/A 05/28/16 16:19 06/27/16 16:18 Aspirin (Ecotrin Tab) 81 mg MoWeFr@0900 PO 05/29/16 09:00 06/28/16 08:59 06/05/16 08:33 81 MG Atorvastatin Calcium (Lipitor Tab) 80 mg QPM PO 05/28/16 21:00 06/27/16 20:59 06/04/16 21:05 80 MG Levothyroxine Sodium (Synthroid Tab) 112 mcg QAM PO 05/29/16 09:00 06/28/16 08:59 06/05/16 08:32 112 MCG Metoprolol Succinate (Toprol Xl Tab) 25 mg BID PO 05/28/16 21:00 06/27/16 20:59 06/05/16 08:33 25 MG Rifaximin (Xifaxan Tab) 550 mg BID PO 05/28/16 21:00 06/27/16 20:59 06/05/16 08:32 550 MG Travoprost (Travatan Z) 1 drops HS OPB 05/28/16 21:00 06/27/16 20:59 06/04/16 21:00 1 DROPS Venlafaxine HCl (effeXOR TAB) 100 mg QAM PO 05/29/16 09:00 06/28/16 08:59 06/05/16 08:33 100 MG Ipratropium [place] (Atrovent 0.02% 0.5MG/2.5ML Neb) 0.5 mg Q6R INH 05/30/16 03:00 06/29/16 02:59 06/05/16 07:33 0.5 MG Levalbuterol (Xopenex 1.25MG/ 0.5ML Neb) 1.25 mg Q6R INH 05/30/16 03:00 06/29/16 02:59 06/05/16 07:33 1.25 MG Ipratropium [place] (Atrovent 0.02% 0.5MG/2.5ML Neb) 0.5 mg Q4H PRN INH 05/29/16 21:45 06/28/16 21:44 Levalbuterol (Xopenex 1.25MG/ 0.5ML Neb) 1.25 mg Q4H PRN INH 05/29/16 21:45 06/28/16 21:44 Spironolactone 50 mg 50 mg QAM PO 06/02/16 09:00 07/02/16 08:59 06/05/16 08:33 50 MG Furosemide/Syringe (Lasix Inj/ Syringe) 2 ml @ 4 mls/min [id number] IV 06/01/16 14:00 07/01/16 13:59 06/05/16 06:09 4 MLS/MIN Bisacodyl (Dulcolax Tab) 5 mg BID PO 06/03/16 21:00 07/03/16 20:59 06/05/16 08:32 5 MG Docusate Sodium (coLACE CAP) 100 mg BID PO 06/03/16 21:00 07/03/16 20:59 06/05/16 08:33 100 MG Polyethylene (Miralax Powder Packet) 17 gm DAILY PRN PO 06/03/16 09:30 07/03/16 09:29 06/04/16 09:03 17 GM Prednisone (PredniSONE TAB) 10 mg DAILY PO 06/05/16 09:00 07/05/16 08:59 06/05/16 08:33 10 MG Insulin Glargine (Lantus Solostar Pen) give 0 units if BSG l... BID SC 06/05/16 21:00 07/05/16 20:59 Last 24 Hours Test 06/04/16 20:27 06/05/16 07:25 06/05/16 09:10 06/05/16 11:51 Bedside Glucose 238 mg/dl 153 mg/dl 249 mg/dl White Blood Count 12.00 K/uL Red Blood Count 3.43 M/uL Hemoglobin 9.7 g/dL Hematocrit 29.9 % Mean Corpuscular Volume 87.2 fL Mean Corpuscular Hemoglobin 28.3 pg Mean Corpuscular Hemoglobin Concent 32.4 g/dl RDW Standard Deviation 48.5 fL RDW Coefficient of Variation 15.0 % Platelet Count 329 K/uL Mean Platelet Volume 9.6 fL Test 06/05/16 16:30 Bedside Glucose 165 mg/dl Assessment & Plan 75 y/o F w/ NAFLD, a fib, diastolic HF, DM, CAD, past bladder/endometrial CA admitted on 05/28 w/ acute hypoxic respiratory failure and mild hepatic encephalopathy. She developed contrast induced nephropathy in the setting of obligate diuresis with peak creatinine 2.2 on 05/29. Acute kidney injury with a creatinine of 1.2 on admission and baseline 1.1-1.2 as outpt, 1.4-1.7 range as inpt> renal function back to baseline after w/ holding diuretics and w/ gentle albumin supplementation but diuretics resumed d/ t volume overload more symptomatic. not hepatorenal syndrome. Multifactorial volume overload and recurrent acute hypoxic respiratory failure from pleural effusion and NAFLD, COPD. >cont 50 mg daily aldactone >for d/c on 80 mg daily lasix >> may well need twice daily lasix dosing and will disc w/ PCP as d/c from here already in process -cont fluid limit 1.5L and 2 gm daily diet and daily standing wt after d/c Appreciate consult; will follow with you.
[2016-06-05] MEDS ORDERED: FURO80TA63 PO (17:49)
[2016-06-05] MEDS ORDERED: INSULIN GLARGINE SOLOSTAR 100 UNITS/ML 3 ML PEN SC SCH (21:00)
--- NOTE | 2016-06-08 11:41 | EDITING REQUIRED CODING QUERY ---
CODING QUERY To promote full compliance with coding requirements relating to patient care, provider participation is requested in all cases of snow removal supervisor uncertainty. 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 Please check the phrase that describes the Pneumothorax. Thanks for your help! Marcus Diaz [facility] Physician Response: ++ Pneumothorax is an expected complication of the thoracentesis Pneumothorax is insignificant, not considered a complication of the thoracentesis Unable to clinically determine Other, please document: Principal Diagnosis: "_that condition established after study, to be chiefly responsible for occasioning the admission of the patient to the hospital for care." Co-Existing Principal Diagnosis: "_when two or more diagnoses equally meet the criteria for principal diagnosis as determined by the circumstances of admission, diagnostic work up, and/or therapy provided, and the Alphabetic Index, Tabular List, or another coding guideline does not provide sequencing direction, any one of the diagnoses may be sequenced first." "When the physician has documented what appears to be a current diagnosis in the body of the record, but has not included the diagnosis in the final diagnostic statement, the physician should be asked whether the diagnosis should be added." (Source Coding [facility] 2 QTR90. p3-4)
[2016-07-20] MEDS ORDERED: PRT40 PO (14:35)
[2016-07-20] MEDS ORDERED: SPRN100 PO (14:35)
[2016-07-20] MEDS ORDERED: ALBU18002 INH (14:35)
[2016-07-20] MEDS ORDERED: MRLP17 PO (14:42)
[2016-09-02] MEDS ORDERED: RIFA550T2 PO (10:46)
[2016-09-02] MEDS ORDERED: VENL100T2 PO (10:46)
[2016-09-02] MEDS ORDERED: LEVO112T4 PO (10:47)
[2016-09-02] MEDS ORDERED: METO25TA3 PO (10:47)
[2016-09-02] MEDS ORDERED: ATOR-26 PO (10:47)
[2016-09-02] MEDS ORDERED: INSDGI SC (11:39)
[2016-09-02] MEDS ORDERED: NVLGI/PEN SC ×2 (13:17)
[2016-09-02] MEDS ORDERED: TRMCR130WC TOP (13:17)
[2016-09-02] MEDS ORDERED: FRS/40 PO (13:17)
[2016-09-02] MEDS ORDERED: LATA0.009 OPB (13:17)
[2016-09-02] MEDS ORDERED: ASPEC81 PO (14:17)
[2016-09-12] MEDS ORDERED: [UNRECOGNIZED DRUG - CODE] PO (16:20)
[2016-09-12] MEDS ORDERED: FRRS300 PO (16:20)
[2016-09-12] MEDS ORDERED: CRG40 PO (16:20)
== END 2016-06-05 18:05 | disposition home or self-care (01) | DRG 441 ==
LOC: ENRESERVTM → ENRESERVDT → C.EDB 10:40 → C.MED 14:01
PROVIDERS: ADMIT Internal Medicine; ATTEND Internal Medicine
PROC: 0W9G3ZX Drainage of Peritoneal Cavity, Percutaneous Approach, Diagnostic (ICD-10-PCS; principal; 2016-05-28)
PROC: 0W9B3ZX Drainage of Left Pleural Cavity, Percutaneous Approach, Diagnostic (ICD-10-PCS; 2016-06-01)
DX: K72.90 Hepatic failure, unspecified without coma (principal); J18.9 Pneumonia, unspecified organism; K75.81 Nonalcoholic steatohepatitis (NASH); K76.6 Portal hypertension; I81 Portal vein thrombosis; J44.1 Chronic obstructive pulmonary disease with (acute) exacerbation; J96.01 Acute respiratory failure with hypoxia; R18.8 Other ascites; I50.31 Acute diastolic (congestive) heart failure; N17.9 Acute kidney failure, unspecified; I85.10 Secondary esophageal varices without bleeding; E46 Unspecified protein-calorie malnutrition; N18.4 Chronic kidney disease, stage 4 (severe); J94.0 Chylous effusion; J93.83 Other pneumothorax; E11.21 Type 2 diabetes mellitus with diabetic nephropathy; K74.60 Unspecified cirrhosis of liver; N18.3 Chronic kidney disease, stage 3 (moderate); E11.9 Type 2 diabetes mellitus without complications; Z87.891 Personal history of nicotine dependence; K59.00 Constipation, unspecified; C67.9 Malignant neoplasm of bladder, unspecified; K21.9 Gastro-esophageal reflux disease without esophagitis; E03.9 Hypothyroidism, unspecified; I25.2 Old myocardial infarction; I48.0 Paroxysmal atrial fibrillation; R15.9 Full incontinence of feces; Z91.14 Patient's other noncompliance with medication regimen; Z85.51 Personal history of malignant neoplasm of bladder

== ENCOUNTER 2016-07-14 12:11 | Inpatient (IN) | payer OTHER ==
[~2016-07-14] VITALS: Ht 167.6 cm; Wt 96.9 kg
[~2016-07-14 12:11] MED LIST changes: +ALBU18002 INH; -ALBU1AER9 INH; +CLC100 PO; +DLC5 PO; -FERR325T51 PO; -FRS/40 PO; +FURO80TA63 PO; -INSUINJ14 SC; -INSUINJ4 SQ; +NVLG SQ
[2016-07-14 12:46] LABS: HEMATOCRIT 20.5 % (37-47); MEAN CELL VOLUME 81.7 fL (80-100); MEAN CORPUSCULAR HEMOGLOBIN 23.9 pg (25-34); MEAN CORPUSCULAR HGB CONC 29.3 g/dl (32-36); MEAN PLATELET VOLUME 9.4 fL (7.4-10.4); PLATELET COUNT 498 K/uL (130-400); RED BLOOD COUNT 2.51 M/uL (4.2-5.4); WHITE BLOOD COUNT 11.61 K/uL (4.8-10.8)
--- NOTE | 2016-07-14 12:46 | EMERGENCY ROOM VISIT NOTE ---
History Report prepared by Lara: Luma Tovar Under the Supervision of: Dr. Ashlie Darling M.D. First contact with patient: 12:17 Stated Complaint: SOB History of Present Illness The patient is a 75 year old female who presents to the Emergency Room with complaints of worsening shortness of breath over the past few weeks. The patient was admitted to the hospital on May 28 for similar shortness of breath. She had a left sided thoracentesis while she was here and had 1.4 L removed. During her hospital stay, she lost approximately 20 pounds. She was discharged home on the . Since then, the patient has gained all of the weight back, plus some. Her notes that she has been gaining about 2 pounds a day recently. Her abdomen has become more distended. She has difficulty walking short distances and starts to gasp for air with exertion. The patient typically wears 1-2L oxygen at all times, but recently had to increase it to 3L due to her breathing difficulties. She takes aspirin but does not take other blood thinners. She took aspirin this morning. Currently, she feels some chest discomfort, as if there is a band around her chest. She does not have any significant leg swelling. Source of History: patient, spouse/significant other Onset: a few weeks ago Position: other (global) Quality: other (shortness of breath) Timing: worsening Modifying Factors (Worsening): exertion Note: Other symptoms: weight gain, abdominal distension, chest discomfort (feels like band around chest) Review of Systems See HPI for pertinent positives & negatives. A total of 10 systems reviewed and were otherwise negative. Past Medical & Surgical Medical Problems: (1) Bladder cancer (2) Cirrhosis of liver (3) CKD (chronic kidney disease), stage III (4) COPD (chronic obstructive pulmonary disease) (5) Depression (6) Diabetes mellitus type 2 (7) Diastolic CHF (8) Dyslipidemia (9) GERD (gastroesophageal reflux disease) (10) GI bleed (11) History of adenomatous polyp of colon (12) History of bladder cancer (13) History of endometrial cancer (14) Hypothyroidism (15) Iron deficiency anemia (16) NSTEMI (non-ST elevated myocardial infarction) (17) Paroxysmal a-fib (18) Portal hypertension (19) Portal vein thrombosis (20) Symptomatic anemia Surgical Problems: (1) H/O colonoscopy with polypectomy (2) H/O esophagogastroduodenoscopy (3) Status post excision bladder tumor (4) Status post hysterectomy Family History FH: ovarian cancer MOTHER Social History Smoking Status: Former Smoker Alcohol Use: none Drug Use: none Marital Status: Housing Status: lives with family Occupation Status: retired Current/Historical Medications Scheduled Aspirin (Aspirin EC Low Dose), 81 MG PO 3XWK Atorvastatin (Lipitor), 80 MG PO QPM Docusate Sodium (Docusate Sodium), 100 MG PO BID Furosemide (Lasix), 40 MG PO BID Insulin Aspart (Novolog Flexpen), 30 UNITS SC BIDM Insulin Aspart (Novolog Flexpen), 20 UNITS SC QPM Insulin Glargine (Lantus), 45 UNITS SC BID Latanoprost (Xalatan 0.005% Oph Cecilia), 1 DROPS OPB HS Levothyroxine Sodium (Levothyroxine Sodium), 1 TAB PO QAM Metoprolol Succ (Toprol Xl) (Toprol-Xl), 25 MG PO BID Rifaximin (Xifaxan), 550 MG PO BID Spironolactone (Aldactone), 50 MG PO QAM Triamcinolone Acet (Aristocort 0.1%), 1 APPLN TOP BID Venlafaxine Hcl (Effexor), 100 MG PO DAILY Scheduled PRN Albuterol Sulfate (Proair Respiclick), 2 PUFFS INH Q4 PRN for Shortness of Breath Bisacodyl (Bisacodyl EC), 5 MG PO BID PRN for constipation Allergies Coded Allergies: Iron Dextran (Verified Allergy, Severe, IRON INFUSIONS - COULDN'T BREATH - THROAT CLOSING, 05/28/16) Dobutamine (Verified Allergy, Intermediate, DIFFICULTY SWALLOWING, 05/28/16 ) Physical Exam Vital Signs Date Time Temp Pulse Resp B/P Pulse Ox O2 Delivery O2 Flow Rate FiO2 07/14/16 14:00 82 18 140/53 100 Nasal Cannula 3.0 07/14/16 12:26 82 07/14/16 12:15 36.8 86 22 128/49 100 Nasal Cannula 3.0 Physical Exam Vital signs reviewed. General: Chronically ill-appearing 75 year old female, on nasal canula oxygen. HEENT: No scleral icterus, pale conjunctiva, PERRLA, neck supple. Atraumatic. Cardiovascular: Irregular rhythm, rate controlled, no extra sounds. Pulmonary: Minimal breath sounds bilaterally, normal work of breathing. Abdomen: Soft, nontender, nondistended, positive bowel sounds. Recta: Guaiac positive stool. Musculoskeletal: Atraumatic, chronic venostasis changes to the bilateral lower extremities. No significant pitting edema distally. Neurologic: Patient awake alert and oriented x 3, full strength in all 4 extremities. Cranial nerves 2 through 12 grossly intact. Skin: Warm, dry, no rash Medical Decision & Procedures ER Provider Diagnostic Interpretation: Radiology results as stated below per my review and radiologist interpretation: CHEST ONE VIEW PORTABLE CLINICAL HISTORY: Congestive failure. Shortness of breath. COMPARISON STUDY: 06/04/2016 FINDINGS: The heart is enlarged. There is a left basilar opacity, likely representing a combination of pleural fluid and left basilar atelectasis/consolidation. There is minor blunting of the right lateral costophrenic angle. There is mild central vascular prominence. There is no focal pulmonary consolidation on the right.[ IMPRESSION: 1. Resolving pulmonary vascular congestion 2. Left basilar opacity, likely representing a combination of pleural fluid and left lower lobe atelectasis/consolidation 3. Suspected trace right pleural effusion Electronically signed by: Barry Jim M.D. 07/14/2016 12:57 PM Dictated Date/Time: 07/14/2016 12:55 PM Laboratory Results Test 07/14/16 12:15 07/14/16 12:39 Immature Granulocyte % (Auto) 0.2 % White Blood Count 11.61 K/uL (4.8-10.8) Red Blood Count 2.51 M/uL (4.2-5.4) Hemoglobin 6.0 g/dL (12.0-16.0) Hematocrit 20.5 % (37-47) Mean Corpuscular Volume 81.7 fL (80-100) Mean Corpuscular Hemoglobin 23.9 pg (25-34) Mean Corpuscular Hemoglobin Concent 29.3 g/dl (32-36) Platelet Count 498 K/uL (130-400) Mean Platelet Volume 9.4 fL (7.4-10.4) Neutrophils (%) (Auto) 71.5 % Lymphocytes (%) (Auto) 14.3 % Monocytes (%) (Auto) 10.9 % Eosinophils (%) (Auto) 2.3 % Basophils (%) (Auto) 0.8 % Neutrophils # (Auto) 8.30 K/uL (1.4-6.5) Lymphocytes # (Auto) 1.66 K/uL (1.2-3.4) Monocytes # (Auto) 1.27 K/uL (0.11-0.59) Eosinophils # (Auto) 0.27 K/uL (0-0.5) Basophils # (Auto) 0.09 K/uL (0-0.2) Immature Granulocyte # (Auto) 0.02 K/uL (0.00-0.02) Magnesium Level 2.3 mg/dl (1.8-2.4) Total Bilirubin 0.7 mg/dl (0.2-1) Direct Bilirubin 0.2 mg/dl (0-0.2) Aspartate Amino Transf (AST/SGOT) 39 U/L (15-37) Alanine Aminotransferase (ALT/SGPT) 30 U/L (12-78) Alkaline Phosphatase 192 U/L (45-117) Total Creatine Kinase 102 U/L (26-192) Creatine Kinase MB 3.3 ng/ml (0.5-3.6) Creatine Kinase MB Ratio 3.2 (0-3.0) Total Protein 7.4 gm/dl (6.4-8.2) Albumin 2.8 gm/dl (3.4-5.0) Lipase 313 U/L (73-393) Bedside Troponin I 0.000 ng/ml (0-0.045) FD-Eto-W-Type Natriuretic Peptide 168 pg/ml (0-900) Laboratory results per my review. ECG Indication: SOB/dyspnea Rate (beats per minute): 79 Rhythm: sinus rhythm Findings: RBBB, no acute ischemic change ED Course 1226: Past medical records reviewed. The patient was evaluated in room A12B. A complete history and physical examination was performed. 1313: Upon reevaluation, the patient is resting comfortably. I discussed laboratory and radiographic results with the patient. She verbalized agreement of the treatment plan. She signed for blood consent. 1332: I spoke with Chip Conway PA-C of the [facility]. The patient will be evaluated for further management and care. Medical Decision Differential diagnosis: Etiologies such as infections, reactive airway disease, pneumonia, pneumothorax , COPD, CHF, cardiac ischemia, pulmonary embolism, musculoskeletal, gastrointestinal, as well as others were entertained. This patient was evaluated and appeared to be in no significant distress. IV access was obtained and laboratory work was drawn. Patient was placed on the groundwater monitoring technician and found to be in a normal sinus rhythm with a right bundle- branch block. Chest x-ray reveals chronic congestion and left basilar consolidation, no significant change from previous. Patient is found to have a hemoglobin of 6. She is guaiac positive from below. She was type and cross for 2 units and will be admitted to the hospitalist service for further management. The patient is aware of the plan and agrees. Consults Time Called: 1325 Consulting Physician: Chip Conway PA-C of the [facility] Returned Call: [phone] I discussed the case with her. The patient will be evaluated for further management and care. Impression Primary Impression: GI bleed Additional Impression: Anemia Scribe Attestation The scribe's documentation has been prepared under my direction and personally reviewed by me in its entirety. I confirm that the note above accurately reflects all work, treatment, procedures, and medical decision making performed by me. Departure Information Dispostion Being Evaluated By Hospitalist Referrals Yann Gutierrez D.O. (PCP) Problem Qualifiers
[2016-07-14 12:50] LABS: BUN/CREATININE RATIO 21.7 (10-20); CALCIUM 8.8 mg/dl (8.5-10.1); CREATININE 1.5 mg/dl (0.60-1.20); MAGNESIUM 2.3 mg/dl (1.8-2.4); POTASSIUM 3.3 mmol/L (3.5-5.1)
[2016-07-14 12:53] LABS: CKMB/CK RATIO 3.2 (0-3.0)
--- NOTE | 2016-07-14 12:59 | DIAGNOSTIC IMAGING REPORT ---
CHEST ONE VIEW PORTABLE CLINICAL HISTORY: Congestive failure. Shortness of breath. COMPARISON STUDY: 06/04/2016 FINDINGS: The heart is enlarged. There is a left basilar opacity, likely representing a combination of pleural fluid and left basilar atelectasis/consolidation. There is minor blunting of the right lateral costophrenic angle. There is mild central vascular prominence. There is no focal pulmonary consolidation on the right.[ IMPRESSION: 1. Resolving pulmonary vascular congestion 2. Left basilar opacity, likely representing a combination of pleural fluid and left lower lobe atelectasis/consolidation 3. Suspected trace right pleural effusion Electronically signed by: Barry Jim M.D. 07/14/2016 12:57 PM Dictated Date/Time: 07/14/2016 12:55 PM
[2016-07-14 13:05] LABS: BASO % 0.8 %; BASO ABS # 0.09 K/uL (0-0.2); COMPLETE YES; EOS % 2.3 %; IG% 0.2 %; LYMPH % 14.3 %; LYMPH ABS # 1.66 K/uL (1.2-3.4); MONO % 10.9 %; NEUT % 71.5 %
[2016-07-14] MEDS ORDERED: GLUCAGON FOR INJ 1 MG VIAL SQ PRN (15:15)
[2016-07-14] MEDS ORDERED: GLUCOSE 10 TABS/TUBE PO PRN (15:15)
[2016-07-14] MEDS ORDERED: DEXTROSE 50% 50 ML SYR IV PRN (15:15)
[2016-07-14] MEDS ORDERED: GLUCOSE 40% GEL 15 GM TUBE PO PRN (15:15)
--- NOTE | 2016-07-14 15:56 | Gastrointestinal Consultation ---
Gastrointestinal Consultation Date of Consultation: Jul 14, 2016 Consulting Physician: Wolfgang Reason for Consultation: BRBPR History of Present Illness Patient is a 75 year old female with past medical history significant for GRAHAM cirrhosis, DMT2, anemia, afib, depression, hypothyroid, GERD, CKDIII, adenomatous polyps, bladder CA, CHF, hypoxia who presents to the ED with worsening SOB and anemia. GI was consulted for symptomatic anemia and guaiac positive stool. Pt reports over the past month she developed worsening SOB, fatigue and weakness. She was not checking her stools for melena or BRB. Reports had a BM in the ED. Guaiac positive stool per ER note. She has been compliant with her outpatient medications. She denies fever, chills, chest pain , abdominal pain, known black/bloody stools, nausea, vomiting. Colonoscopy 11/02/15: One 1 mm polyp in the cecum. One 2 mm polyp in the transverse colon. Diverticulosis in the sigmoid colon. Medium-sized lipoma in the ascending colon.Small AVM's in cecum. Tattoo in ascending colon. Past Medical/Surgical History Medical Problems: (1) Altered mental status Status: Acute (2) Anemia Status: Acute (3) Hypoxia Status: Acute (4) Pneumonia Status: Acute (5) SIRS (systemic inflammatory response syndrome) Status: Acute Past Medical History: GRAHAM cirrhosis, DMT2, anemia, afib, depression, hypothyroid, GERD, CKDIII, adenomatous polyps, bladder CA, CHF, Past Surgical History: colonoscopy, excision bladder tumor, hysterectomy Family History FH: ovarian cancer MOTHER Social History Smoking Status: Former Smoker Alcohol Use: none Drug Use: none Marital Status: Housing Status: lives with family Occupation Status: retired Allergies Coded Allergies: Iron Dextran (Verified Allergy, Severe, IRON INFUSIONS - COULDN'T BREATH - THROAT CLOSING, 05/28/16) Dobutamine (Verified Allergy, Intermediate, DIFFICULTY SWALLOWING, 05/28/16 ) Current Medications Home Meds and Scripts Medications Dose Route/Sig Max Daily Dose Days Date Category Dose Instructions Xalatan 0.005% Oph Cecilia (Latanoprost) 0.005 % Cecilia 1 Drops OPB HS 90 07/14/16 Reported Lasix (Furosemide) 40 Mg Tab 40 Mg PO BID 07/14/16 Reported Aristocort 0.1% (Triamcinolone Acet) 90 Appln/30 Gm Cr 1 Appln TOP BID 07/14/16 Reported Novolog Flexpen (Insulin Aspart) 100 Units/Ml Inj 20 Units SC QPM 07/14/16 Reported BEFORE SUPPER Novolog Flexpen (Insulin Aspart) 100 Units/Ml Inj 30 Units SC BIDM 07/14/16 Reported BEFORE BREAKFAST AND LUNCH Bisacodyl EC (Bisacodyl) 5 Mg Tabec 5 Mg PO BID PRN 10 06/04/16 Rx Docusate Sodium 100 Mg Cap 100 Mg PO BID 20 06/04/16 Rx Aspirin EC Low Dose (Aspirin) 81 Mg Ectab 81 Mg PO 3XWK 05/28/16 Reported Proair Respiclick (Albuterol Sulfate) 108 Mcg/Act Aer 1-2 Puffs INH Q4 PRN 05/28/16 Reported Lantus (Insulin Glargine) 100 Unit/Ml Inj 45 Units SC BID 05/28/16 Reported Levothyroxine Sodium 112 Mcg Tab 1 Tab PO QAM 90 10/27/15 Reported Toprol-Xl (Metoprolol Succinate) 25 Mg Tabcr 25 Mg PO BID 10/27/15 Reported Lipitor (Atorvastatin Calcium) 80 Mg Tab 80 Mg PO QPM 10/27/15 Reported Aldactone (Spironolactone) 50 Mg Tab 50 Mg PO QAM 10/27/15 Reported Effexor (Venlafaxine Hcl) 100 Mg Tab 100 Mg PO DAILY 10/27/15 Reported TAKE WITH FOOD. Xifaxan (Rifaximin) 550 Mg Tab 550 Mg PO BID 10/27/15 Reported Review of Systems Constitutional: No chills, No fever Respiratory: + shortness of breath, No cough Cardiac: + edema, No chest pain Abdomen: No GI bleeding, No constipation, No diarrhea, No nausea, No pain, No vomiting Physical Exam Date Time Temp Pulse Resp B/P Pulse Ox O2 Delivery O2 Flow Rate FiO2 07/14/16 14:00 82 18 140/53 100 Nasal Cannula 3.0 07/14/16 12:26 82 07/14/16 12:15 36.8 86 22 128/49 100 Nasal Cannula 3.0 General Appearance: + mild distress (pt is SOB during conversation) Eyes: PERRL ENT: hearing grossly normal Neck: supple, trachea midline Respiratory/Chest: no accessory muscle use, + decreased breath sounds, + pertinent finding (pt is SOB during conversation, wearing O2) Cardiovascular: no edema, no gallop, no murmur, + irregularly irregular Abdomen: normal bowel sounds, non tender, soft, no organomegaly, no pulsatile mass, + distended, + pertinent finding (ascites) Neurologic/Psych: alert, normal mood/affect, oriented x 3 Skin: normal color, no jaundice, warm/dry Laboratory Results Last 24 Hours Test 07/14/16 12:15 07/14/16 12:39 07/14/16 15:24 07/14/16 15:30 White Blood Count 11.61 K/uL Red Blood Count 2.51 M/uL Hemoglobin 6.0 g/dL Hematocrit 20.5 % Mean Corpuscular Volume 81.7 fL Mean Corpuscular Hemoglobin 23.9 pg Mean Corpuscular Hemoglobin Concent 29.3 g/dl Platelet Count 498 K/uL Mean Platelet Volume 9.4 fL Neutrophils (%) (Auto) 71.5 % Lymphocytes (%) (Auto) 14.3 % Monocytes (%) (Auto) 10.9 % Eosinophils (%) (Auto) 2.3 % Basophils (%) (Auto) 0.8 % Neutrophils # (Auto) 8.30 K/uL Lymphocytes # (Auto) 1.66 K/uL Monocytes # (Auto) 1.27 K/uL Eosinophils # (Auto) 0.27 K/uL Basophils # (Auto) 0.09 K/uL RDW Standard Deviation 54.1 fL RDW Coefficient of Variation 17.9 % Immature Granulocyte % (Auto) 0.2 % Immature Granulocyte # (Auto) 0.02 K/uL Prothrombin Time 11.0 SECONDS Prothromb Time International Ratio 1.0 Sodium Level 140 mmol/L Potassium Level 3.3 mmol/L Chloride Level 101 mmol/L Carbon Dioxide Level 31 mmol/L Anion Gap 8.0 mmol/L Blood Urea Nitrogen 33 mg/dl Creatinine 1.50 mg/dl Est Creatinine Clear Calc Drug Dose 44.0 ml/min Estimated GFR () 39.6 Estimated GFR (Non- 34.2 BUN/Creatinine Ratio 21.7 Random Glucose 107 mg/dl Calcium Level 8.8 mg/dl Magnesium Level 2.3 mg/dl Total Bilirubin 0.7 mg/dl Direct Bilirubin 0.2 mg/dl Aspartate Amino Transf (AST/SGOT) 39 U/L Alanine Aminotransferase (ALT/SGPT) 30 U/L Alkaline Phosphatase 192 U/L Total Creatine Kinase 102 U/L Creatine Kinase MB 3.3 ng/ml Creatine Kinase MB Ratio 3.2 Total Protein 7.4 gm/dl Albumin 2.8 gm/dl Lipase 313 U/L Bedside Troponin I 0.000 ng/ml [id number] Natriuretic Peptide 168 pg/ml Impression Patient is a 75 year old female with GRAHAM cirrhosis and symptotic anemia with guaiac positive stool. HGB on arrival was 6. Suggest to optimize patient respiratory and transfuse prior to EGD evaluation. Plan Clear liquids NPO after midnight 07/16/16 Trend H&H Continue US guided paracentesis cover for SBP if indicated cell count, cytology, protein, albumin Transfuse as needed Monitor stools PPI IV Plan for evaluation with EGD if needed on Sunday. Continue appropriate outpatient medications I have seen and evaluated the patient with Mac Fareed. She has a history of cirrhosis (normal plt count) and is follow-up Dr. sadler. She presented with SOB and was found to have a worsening anemia. She denies having BRBPR or dark sticky stool. Her endoscopic hx is notable for Grade 1 varices and AVMs. PE: obese female, appears SOB, Coarse airway sounds / diminished. Impression: patient with worsening anemia, no overt bleeding at this time. i would wonder about portal gastropathy or perhaps AVMs as an etiology for chronic loss. Recomendations: consider a diagnostic paracentesis (Cell count / diff and culture) Iron studies / B12 and folate Avoid use of anticoagulants / nsaids EGD on Sunday, colonoscopy if negative if there any changes (melena or significant drop in hb, could consider more urgent weekend eval) Dr. Damico to provide coverage over the weekend.
[2016-07-14] MEDS ORDERED: PHARMACY GLYCEMIC MGMT CONSULT PRN (15:58)
[2016-07-14] MEDS ORDERED: BISACODYL 5 MG TABEC PO PRN (16:00)
[2016-07-14] MEDS: INSULIN ASPART 100 UNITS/ML 3 ML PEN SC SCH ×2 (16:15→20:54)
--- NOTE | 2016-07-14 16:23 | DIAGNOSTIC IMAGING REPORT ---
LIMITED ABDOMINAL ULTRASOUND FOR ASCITES EVALUATION CLINICAL HISTORY: D, cisterns cirrhosis COMPARISON STUDY: 06/01/2016 FINDINGS: A four-quadrant ultrasound was performed. There is low volume ascites, most prominent within the right upper quadrant. The liver appears cirrhotic. IMPRESSION: Low volume ascites which is increased when compared the prior June 01 study Electronically signed by: Barry Jim M.D. 07/14/2016 4:21 PM Dictated Date/Time: 07/14/2016 4:19 PM
[2016-07-14] MEDS ORDERED: POTASSIUM CHLORIDE 20 MEQ TABCR PO ONE (16:52)
[2016-07-14] MEDS ORDERED: PANTOprazole INJ 80 MG in DEXTROSE 5% 100ML IV SCH (17:00)
[2016-07-14 17:37] VITALS: BP 107/39; PULSE 91; TEMP 36.6; O2SAT 97; BMI 35.2
[2016-07-14] MEDS: PANTOprazole INJ 40 MG in DEXTROSE 5% 100ML IV SCH ×2 (18:46→22:15)
--- NOTE | 2016-07-14 18:59 | History and Physical ---
History & Physical Date & Time of Service: Jul 14, 2016 at 15:52 Chief Complaint: SOB Primary Care Physician: Yann Gutierrez D.OMac History of Present Illness Source: patient, hospital records This is a 75 year old female with PMH of GRAHAM cirrhosis complicated by portal hypertensive gastropathy, varices, ascites, hepatic encephalopathy, DM type 2, PAF, COPD, and other problems listed below who presents to the ED with worsening SOB. 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 Patient states for past 3 days has worsening SOB with rest and exertion. She is on chronic oxygen 1 liter at rest, 2 liters with exertion, but has increased to 3 liters for past few days. She reports associated generalized weakness and lightheadedness with standing. She reports increasing abdominal girth and weight gain of 13 lb in past 2 weeks. She reports being constipated recently then today was straining then had 2 liquid stool with "reddish cast". Pt also admits to tarry stools x 4 months. States she is chronically cold. She denies fevers, cough, URI symptoms, chest pain, abdominal pain, vomiting, jaundice, change in mental status. Patient's stool was guaiac positive on ER provider's exam. Hg is 6.0. Patient is hemodynamically stable on 3 liters nasal cannula. Prior EGD/ colonoscopy noted in surgical Hx below. On baby ASA 3x per week. Denies NSAID intake. Past Medical/Surgical History Medical Problems: (1) Bladder cancer Status: Chronic (2) Cirrhosis of liver Permanent Comment: NAFLD Status: Chronic (3) CKD (chronic kidney disease), stage III Status: Chronic (4) COPD (chronic obstructive pulmonary disease) Status: Resolved (5) Depression Status: Chronic (6) Diabetes mellitus type 2 Status: Chronic (7) Diastolic CHF Status: Chronic (8) Dyslipidemia Status: Chronic (9) GERD (gastroesophageal reflux disease) Status: Chronic (10) GI bleed Status: Resolved (11) History of adenomatous polyp of colon Status: Chronic (12) History of bladder cancer Status: Chronic (13) History of endometrial cancer Status: Chronic (14) Hypothyroidism Status: Chronic (15) Iron deficiency anemia Status: Chronic (16) NSTEMI (non-ST elevated myocardial infarction) Permanent Comment: in the setting of acute illness, no EKG or echo findings of ACS Status: Chronic (17) Paroxysmal a-fib Status: Chronic (18) Portal hypertension Permanent Comment: esophageal varices Status: Chronic (19) Portal vein thrombosis Status: Chronic Surgical Problems: (1) H/O colonoscopy with polypectomy Permanent Comment: 09/2015- 2 polyps removed with clips placed, diverticulosis, medium sized lipoma in ascending colon, small AVMs in cecum Status: Chronic (2) H/O esophagogastroduodenoscopy Permanent Comment: 04/2015- scarring, grade I varices, duodenal polyps, portal hypertensive gastropathy Status: Chronic (3) Status post excision bladder tumor Permanent Comment: 2011 Status: Chronic (4) Status post hysterectomy Permanent Comment: endometrial carcinoma Status: Chronic Family History FH: ovarian cancer MOTHER Social History Smoking Status: Former Smoker Alcohol Use: none Marital Status: Housing status: lives with significant other Occupational Status: retired Immunizations History of Influenza Vaccine: Yes Influenza Vaccine Date: Feb 09, 2016 History of Tetanus Vaccine?: Yes Tetanus Immunization Date: August 31, 2006 History of Pneumococcal: Yes Pneumococcal Date: Feb 24, 2016 History of Hepatitis B Vaccine: Yes Hepatitis Immunization Date: Mar 30, 2008 Multi-Drug Resistant Organisms History of MDRO: No Allergies Coded Allergies: Iron Dextran (Verified Allergy, Severe, IRON INFUSIONS - COULDN'T BREATH - THROAT CLOSING, 05/28/16) Dobutamine (Verified Allergy, Intermediate, DIFFICULTY SWALLOWING, 05/28/16 ) Home Medications Scheduled Aspirin (Aspirin EC Low Dose), 81 MG PO 3XWK Atorvastatin (Lipitor), 80 MG PO QPM Docusate Sodium (Docusate Sodium), 100 MG PO BID Furosemide (Lasix), 40 MG PO BID Insulin Aspart (Novolog Flexpen), 30 UNITS SC BIDM Insulin Aspart (Novolog Flexpen), 20 UNITS SC QPM Insulin Glargine (Lantus), 45 UNITS SC BID Latanoprost (Xalatan 0.005% Oph Cecilia), 1 DROPS OPB HS Levothyroxine Sodium (Levothyroxine Sodium), 1 TAB PO QAM Metoprolol Succ (Toprol Xl) (Toprol-Xl), 25 MG PO BID Rifaximin (Xifaxan), 550 MG PO BID Spironolactone (Aldactone), 50 MG PO QAM Triamcinolone Acet (Aristocort 0.1%), 1 APPLN TOP BID Venlafaxine Hcl (Effexor), 100 MG PO DAILY Scheduled PRN Albuterol Sulfate (Proair Respiclick), 2 PUFFS INH Q4 PRN for Shortness of Breath Bisacodyl (Bisacodyl EC), 5 MG PO BID PRN for constipation Review of Systems Ten point ROS performed with pertinent positives and negatives noted in HPI. Physical Exam Vital Signs Date Time Temp Pulse Resp B/P Pulse Ox O2 Delivery O2 Flow Rate FiO2 07/14/16 14:00 82 18 140/53 100 Nasal Cannula 3.0 07/14/16 12:26 82 07/14/16 12:15 36.8 86 22 128/49 100 Nasal Cannula 3.0 General Appearance: no apparent distress, + pertinent finding (alert 75 year old female, not in distress) Eyes: normal inspection, PERRL, sclerae normal ENT: hearing grossly normal, pharynx normal Neck: supple, no JVD, trachea midline Respiratory/Chest: no respiratory distress, no accessory muscle use, + decreased breath sounds Cardiovascular: regular rate, rhythm Abdomen/GI: normal bowel sounds, non tender, soft, + pertinent finding (mildly distended but soft) Extremities/Musculoskelatal: + pertinent finding (trace bilateral lower extremity edema) Neurologic/Psych: alert, normal mood/affect, oriented x 3, + pertinent finding (grossly nonfocal) Skin: + pallor, + pertinent finding (chronic venous stasis changes with erythema of bilateral lower legs) Diagnostics Laboratory Results Results Past 24 Hours Test 07/14/16 12:15 07/14/16 12:39 07/14/16 15:24 07/14/16 15:30 Range/Units White Blood Count 11.61 4.8-10.8 K/uL Red Blood Count 2.51 4.2-5.4 M/uL Hemoglobin 6.0 12.0-16.0 g/dL Hematocrit 20.5 37-47 % Mean Corpuscular Volume 81.7 80-100 fL Mean Corpuscular Hemoglobin 23.9 25-34 pg Mean Corpuscular Hemoglobin Concent 29.3 32-36 g/dl Platelet Count 498 130-400 K/uL Mean Platelet Volume 9.4 7.4-10.4 fL Neutrophils (%) (Auto) 71.5 % Lymphocytes (%) (Auto) 14.3 % Monocytes (%) (Auto) 10.9 % Eosinophils (%) (Auto) 2.3 % Basophils (%) (Auto) 0.8 % Neutrophils # (Auto) 8.30 1.4-6.5 K/uL Lymphocytes # (Auto) 1.66 1.2-3.4 K/uL Monocytes # (Auto) 1.27 0.11-0.59 K/uL Eosinophils # (Auto) 0.27 0-0.5 K/uL Basophils # (Auto) 0.09 0-0.2 K/uL RDW Standard Deviation 54.1 36.4-46.3 fL RDW Coefficient of Variation 17.9 11.5-14.5 % Immature Granulocyte % (Auto) 0.2 % Immature Granulocyte # (Auto) 0.02 0.00-0.02 K/uL Prothrombin Time 11.0 9.0-12.0 SECONDS Prothromb Time International Ratio 1.0 0.9-1.1 Sodium Level 140 136-145 mmol/L Potassium Level 3.3 3.5-5.1 mmol/L Chloride Level 101 98-107 mmol/L Carbon Dioxide Level 31 21-32 mmol/L Anion Gap 8.0 3-11 mmol/L Blood Urea Nitrogen 33 7-18 mg/dl Creatinine 1.50 0.60-1.20 mg/dl Est Creatinine Clear Calc Drug Dose 44.0 ml/min Estimated GFR () 39.6 Estimated GFR (Non- 34.2 BUN/Creatinine Ratio 21.7 10-20 Random Glucose 107 70-99 mg/dl Calcium Level 8.8 8.5-10.1 mg/dl Magnesium Level 2.3 1.8-2.4 mg/dl Total Bilirubin 0.7 0.2-1 mg/dl Direct Bilirubin 0.2 0-0.2 mg/dl Aspartate Amino Transf (AST/SGOT) 39 15-37 U/L Alanine Aminotransferase (ALT/SGPT) 30 12-78 U/L Alkaline Phosphatase 192 45-117 U/L Total Creatine Kinase 102 26-192 U/L Creatine Kinase MB 3.3 0.5-3.6 ng/ml Creatine Kinase MB Ratio 3.2 0-3.0 Total Protein 7.4 6.4-8.2 gm/dl Albumin 2.8 3.4-5.0 gm/dl Lipase 313 73-393 U/L Bedside Troponin I 0.000 0-0.045 ng/ml [id number] Natriuretic Peptide 168 0-900 pg/ml Diagnostic Radiology CHEST ONE VIEW PORTABLE CLINICAL HISTORY: Congestive failure. Shortness of breath. COMPARISON STUDY: 06/04/2016 FINDINGS: The heart is enlarged. There is a left basilar opacity, likely representing a combination of pleural fluid and left basilar atelectasis/consolidation. There is minor blunting of the right lateral costophrenic angle. There is mild central vascular prominence. There is no focal pulmonary consolidation on the right.[ IMPRESSION: 1. Resolving pulmonary vascular congestion 2. Left basilar opacity, likely representing a combination of pleural fluid and left lower lobe atelectasis/consolidation 3. Suspected trace right pleural effusion LIMITED ABDOMINAL ULTRASOUND FOR ASCITES EVALUATION CLINICAL HISTORY: D, cisterns cirrhosis COMPARISON STUDY: 06/01/2016 FINDINGS: A four-quadrant ultrasound was performed. There is low volume ascites, most prominent within the right upper quadrant. The liver appears cirrhotic. IMPRESSION: Low volume ascites which is increased when compared the prior June 01 study EKG sinus rhythm with blocked PACs, RBBB, when compared to prior EKG, PVCs are no longer present Impression Assessment and Plan SYMPTOMATIC ANEMIA Presents with increasing SOB, lightheadedness, generalized weakness Hg is 6.0; HR and BP stable Rectal exam guaiac positive for ER provider Possible upper GI bleed History of GRAHAM cirrhosis with portal HTN and varices, hx AVMs in cecum Transfuse 2 units pRBC Monitor H/H GI consulted; appreciate input Clear liquid diet Plan for EGD on Tuesday 07/18 or sooner if melena or drop in H/H Dr. Damico will follow up patient over weekend CHRONIC HYPOXIC RESPIRATORY FAILURE Currently saturating well on 3 liters NC; on last admission was newly started on home O2 1 liter at rest, 2 liters with activity Has underlying COPD, hx pleural effusions, GRAHAM cirrhosis with portal HTN and ascites, normal EF on 2013 echo CXR shows resolving pulmonary vascular congestion, L basilar opacity likely combination of pleural fluid and LLL atelectasis/ consolidation, suspected trace right pleural effusion S/P Left thoracentesis 06/01/16- - 1.4 L chylous effusion; complicated by small pneumothorax post-procedure Currently mildly volume overloaded Continue spironolactone, will replace PO Lasix 40 mg BID with IV Lasix- 40 mg between units tonight, possibly additional dose after 2nd unit, then 20 mg IV BID tomorrow, would consider increasing to 40 mg BID if BP remains stable Consult pulmonology GRAHAM CIRRHOSIS with ASCITES; Abdominal US shows Low volume ascites which is increased when compared the prior June 01 study S/p paracentesis 05/29/16- 100cc chylous appearing fluid, WBC < 500, culture- no growth As per GI, consider diagnostic paracentesis H/O HEPATIC ENCEPHALOPATHY Check ammonia level- pending Continue Rifaximin, Dulcolax, Colace HYPOKALEMIA Replace and monitor NESTOR ON CKD STAGE IV Creat is 1.5; baseline 1.1 Monitor renal function while on IV diuretic DM TYPE 2 Basal Lantus and insulin sliding scale Monitor BSG AC HS PAF Currently in sinus rhythm, rate controlled Continue beta moises Not on anticoagulation HYPOTHYROIDISM Continue levothyroxine CODE STATUS Full code per patient's preference darnell recent admission DVT PROPHYLAXIS SCD's re anemia, GI bleed Patient seen in collaboration with Dr. Rosenthal. Please see her addendum. I have seen the patient and agree with the findings as stated above She is hemodynamically stable and afebrile with no brisk active bleeding. Will transfuse 2 Units then hold and reassess. Physical exam as above. Agree with the plan as stated. Thank you to GI for recs--paracentesis ordered for am. Alysa Rosenthal, DO Level of Care Telemetry Resuscitation Status FULL RESUSCITATION VTE Prophylaxis VTE Risk Assessment Done? Y/N: Yes Risk Level: Moderate Given or contraindicated: Contraindicated
[2016-07-14] MEDS ORDERED: FUROSEMIDE INJ 40 MG in SYRINGE 0 ML IV SCH (19:00)
--- NOTE | 2016-07-14 19:24 | Pharmacy Progress Note ---
Glycemic Control Intl Consult Date of Service Jul 14, 2016. Scope Glycemic Pharmacist consulted by Dr Rosenthal on 07/14/16 for glycemic control and to write orders per [facility] inpatient glycemic control protocol Objective Weight (Kilograms): 98.900 Accuchecks BSG (last 24hrs): Test 07/14/16 12:15 07/14/16 17:11 07/14/16 17:36 Random Glucose 107 mg/dl (70-99) Bedside Glucose 63 mg/dl (70-90) 82 mg/dl (70-90) Laboratory Data (last 24hrs) HbA1c Item Value Date Time Hemoglobin A1c 7.8 % H 05/30/16 0556 Recent Pertinent Medications Outpatient Anti-diabetic Regimen: * Lantus 45 units SQ BID * NovoLog 30 units with Breakfast & lunch The patient is currently ordered/receiving: * Basal insulin: Lantus 9 units every 12 hours * Correctional Insulin: Novolog Correction per scale ACHS Goal Range: Low 100 mg/dL - High 140 mg/dL Correction Factor: 45 mg/dL/unit * Prandial insulin: Per carb ratio of 1 unit per 14 grams CHO consumed Risk Factors for Insulin Resistance: * IVF: Protonix mixed in dextrose Assessment & Plan ASSESSMENT: * 75yo T2DM female known to pharmacy from previous admissions/glycemic consults - most recently 05/2016 admission * Pt typically requires less insulin while admitted as compared to outpatient dosing (when only on minimal steroids/stressors), total daily doses for this scenario ranges 60-80 units/day. However, Pt can require 160+ units/day while on moderate dose prednisone daily * Pt currently admitted with GI bleed, symptomatic anemia and will be ordered reduced diet of clear liquids and then NPO Sunday evening prior to EGD Sunday * Anticipating insulin regimen will need significantly reduced as compared to previous admission d/t: no steroids, reduced diet, no infection. 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 * Difficult to determine exactly what insulin needs will be --> will utilize weight/low stress based insulin dosing. * ADA & AACE recommend a goal blood sugar range 140-180 mg/dl for the majority of critically ill & non-critically ill patients. However, more stringent targets may be selected in individual cases. Will utilize more stringent goal of 110-140mg/dl based on patient age, comorbidities, and tight glycemic control as an outpatient. Will keep the "low" end of the goal range slightly elevated to help prevent hypo. PLAN FOR INPATIENT GLYCEMIC CONTROL: * Basal insulin with Lantus SQ BID, dosing will be based off of BSG to help prevent hypo/hyperglycemia and assist in titration * If BSG 120mg/dl or below --> Do not give Lantus * If BSG 121-179mg/dl --> Give Lantus 9 units (weight/st =1) * If BSG 180mg/dl or above --> Give Lantus 18 units (weight/st =2) * NovoLog per scale ACHS or Q6hrs while NPO * Goal Range: Low 110 mg/dL - High 140 mg/dL * Correction Factor: 40 mg/dL/unit * Nutritional / Prandial insulin per carb ratio of 1 unit per 14 grams CHO consumed * Please note that the plan above was derived based on current level of insulin resistance and hospital stress. These recommendations are appropriate for inpatient admission only. Plan of care upon discharge will need to be reassessed to avoid potential outpatient hypo/hyperglycemia. Thank you.
[2016-07-14 19:28] VITALS: BP 115/44; PULSE 77; TEMP 36.4; O2SAT 99
[2016-07-14 20:27] VITALS: O2SAT 99
[2016-07-14 20:35] VITALS: BP 115/42; PULSE 78; TEMP 36.6; O2SAT 96
[2016-07-14 20:45] VITALS: BP 124/40; PULSE 80; TEMP 36.6; O2SAT 96
[2016-07-14] MEDS: LATANOPROST 0.005% OP SOLN 2.5 ML BTL OPB SCH (20:47)
[2016-07-14] MEDS: TRIAMCINOLONE ACET 0.1% CR 15 GM TUBE EXT SCH (20:48)
[2016-07-14] MEDS: DOCUSATE SODIUM 100 MG CAP PO SCH (20:48)
[2016-07-14] MEDS: ATORVASTATIN 20 MG TAB PO SCH (20:49)
[2016-07-14] MEDS: RIFAXIMIN TAB 550 MG TAB PO SCH (20:49)
[2016-07-14] MEDS: METOPROLOL SUCC 25MG EXT REL TAB PO SCH (20:49)
[2016-07-14] MEDS: INSULIN GLARGINE SOLOSTAR 100 UNITS/ML 3 ML PEN SC SCH ×2 (20:52→21:00)
[2016-07-14] MEDS ORDERED: POTASSIUM CHLORIDE 20 MEQ TABCR PO SCH (23:00)
[2016-07-14 23:49] VITALS: BP 130/46; PULSE 79; TEMP 36.6; O2SAT 97
[2016-07-15] VITALS (13 sets, daily range): BP systolic 115–135; BP diastolic 41–47; PULSE 74–87; TEMP 36.3–36.9; O2SAT 92–99
[2016-07-15] MEDS: PANTOprazole INJ 40 MG in DEXTROSE 5% 100ML IV SCH ×5 (05:54→22:38)
[2016-07-15] MEDS: LEVOTHYROXINE 112 MCG TAB PO SCH (06:02)
[2016-07-15 06:50] LABS: HEMATOCRIT 24.4 % (37-47); MEAN CORPUSCULAR HEMOGLOBIN 25.2 pg (25-34); MEAN CORPUSCULAR HGB CONC 31.6 g/dl (32-36); PLATELET COUNT 376 K/uL (130-400); RED BLOOD COUNT 3.05 M/uL (4.2-5.4); WHITE BLOOD COUNT 9.75 K/uL (4.8-10.8)
[2016-07-15 06:57] LABS: INR 1.1 (0.9-1.1); PROTHROMBIN TIME (PATIENT) 11.4 SECONDS (9.0-12.0)
[2016-07-15 07:15] LABS: ESTIMATED AVERAGE GLUCOSE 148 mg/dl; HA1C FLAG Normal (Normal)
[2016-07-15 07:32] LABS: CALCIUM 8.7 mg/dl (8.5-10.1); CREATININE 1.5 mg/dl (0.60-1.20); FERRITIN 16.3 ng/ml (8.0-388.0); POTASSIUM 3.8 mmol/L (3.5-5.1)
[2016-07-15] MEDS: INSULIN GLARGINE SOLOSTAR 100 UNITS/ML 3 ML PEN SC SCH ×2 (08:10→20:23)
[2016-07-15] MEDS: POLYETHYLENE (MIRALAX) 17 GM PACK PO SCH (08:13)
[2016-07-15] MEDS: DOCUSATE SODIUM 100 MG CAP PO SCH ×2 (08:13→20:17)
[2016-07-15] MEDS: VENLAFAXINE HCL 50 MG TAB PO SCH (08:14)
[2016-07-15] MEDS: METOPROLOL SUCC 25MG EXT REL TAB PO SCH ×2 (08:14→20:19)
[2016-07-15] MEDS: RIFAXIMIN TAB 550 MG TAB PO SCH ×2 (08:15→20:18)
[2016-07-15] MEDS: TRIAMCINOLONE ACET 0.1% CR 15 GM TUBE EXT SCH ×2 (08:15→20:16)
[2016-07-15] MEDS: INSULIN ASPART 100 UNITS/ML 3 ML PEN SC SCH ×4 (08:17→20:25)
[2016-07-15] MEDS ORDERED: FUROSEMIDE INJ 20 MG in SYRINGE 0 ML IV SCH (09:00)
[2016-07-15] MEDS ORDERED: SPIRONOLACTONE 25 MG TAB PO SCH (09:00)
--- NOTE | 2016-07-15 11:00 | GASTROENTEROLOGY PROGRESS NOTE ---
DATE: 07/15/2016 DATE: 07/15/2016. Cross coverage for [facility]. SUBJECTIVE: I had the pleasure of seeing Shi Coy at her bedside today. She states that she is feeling better since her arrival to the hospital yesterday. She has been given 2 units packed red blood cells in transfusion and has received IV Lasix and states that her breathing has improved. She does have some continued mild shortness of breath, though she says it is much better than when she arrived. Her pulse ox has fluctuated between 96% and 99% on 2 liters via nasal cannula throughout the day today. She denies any hematemesis, melena, hematochezia. She further denies any abdominal pain, fevers, chills, nausea, vomiting or other complaints. She is eating a liquid diet and tolerating it, though asks if she can advance her diet. She denies any further complaints. REVIEW OF SYSTEMS FAMILY HISTORY: Negative x10 system review other than pertinent positives listed in the HPI. PHYSICAL EXAMINATION: VITAL SIGNS: Temp 36.7, pulse 87, respirations 20, blood pressure 127/43, pulse ox 96% on 2 liters via nasal cannula. GENERAL EXAMINATION: She is awake, cooperative, in no acute distress. Chronic ill appearing. CHEST: Decreased breath sounds bilateral bases. CARDIOVASCULAR SYSTEM: Regular rate and rhythm. ABDOMEN: Soft, nontender, distended. Positive bowel sounds. No appreciable hepatosplenomegaly. Positive ascites. EXTREMITIES: No clubbing, cyanosis, or edema. LABORATORY STUDIES: From today include a white blood cell count of 9.75, hemoglobin 7.7, hematocrit 24.4 and a platelet count of 376. Sodium 140, potassium 3.8, chloride 100, bicarbonate 35, BUN 30, creatinine 1.5, and blood glucose of 102. Her ammonia level was 63. IMPRESSION: A 75-year-old female with GRAHAM cirrhosis and symptomatic anemia requiring transfusions with improvement of symptoms and ascites. PLAN: I would recommend continuing on Protonix 40 mg IV daily. She will undergo upper endoscopy on Sunday. If she has any overt GI bleeding or any significant decline in her H\T\H with overt bleeding we will perform endoscopy over the weekend. She will undergo ultrasound guided paracentesis for evaluation of SBP and will follow her clinical course and make further recommendations as needed. She will continue on Xifaxan therapy for elevated ammonia level and will receive Lasix 20 mg IV b.i.d. as well as spironolactone 50 mg p.o. q.a.m. Again, thanks for allowing me to participate in the care of this patient. If you have any further questions, please do not hesitate in contacting me.
[2016-07-15] MEDS ORDERED: SPIRONOLACTONE 25 MG TAB PO ONE (13:00)
[2016-07-15] MEDS ORDERED: INSULIN GLARGINE SOLOSTAR 100 UNITS/ML 3 ML PEN SC ONE (14:45)
--- NOTE | 2016-07-15 15:43 | Pulmonary Consultation ---
History General Date of Service: Jul 15, 2016. Stated Complaint: Symptomatic Anemia HPI The patient is a 75 year old female who presents to [facility] with complaints of Symptomatic Anemia. The patient's primary care provider is Yann Gutierrez D.O.. 75 y/o female with recent admission to [facility] for progressive hypoxemia and associated SOB from 05/28-. She has a significant PmHx: bilateral pleural effusions (left sided chylous, s/p thoracentesis 06/01/16 with <10% PTX resolved on last CXR), GRAHAM/Cirrhosis, portal hypertension, ascites, gastropathy , varices, hepatic encephalopathy, COPD (unknown severity) whom is readmitted with progressive hypoxemia/SOB and associated 20lb weight gain. Mrs. Coy notes increased dyspnea, abdominal girth, generalized weakness, signs of orthostatic hypotension and 13lb weight gain (215lb on d/c current admission 226lb), and recent constipation with BRBPR/dark tarry stools on the day of admission. In the ED her stool was guaiac positive, H/H: 09/27. Over the last 24 hours the patients respiratory status is much improved. At this time she has no dyspnea on exertion. Denies: fevers, cough, URI symptoms, chest pain, abdominal pain, vomiting, jaundice, change in mental status Current Work-Up: EKG: NSR with RBBB WBC: 12K (Neuto: 72%) H/H: 09/27 K: 3.3 BUN/Cr: 33/1.5 PT/INR: 11.4/1.1 CXR: hilar fullness, bilateral cephalization, jeffery-bronchial cuffing, left- costophrenic blunting, ABD US: low volume ascites per-report Historian: patient, EMS Review of Systems Constitutional: reports: malaise, weakness Eyes: reports: no symptoms ENT: reports: no symptoms Cardiovascular: reports: no symptoms Respiratory: reports: as stated in HPI Gastrointestinal: reports: constipation, hematochezia Genitourinary - Female: reports: no symptoms Musculoskeletal: reports: myalgias Integumentary: reports: no symptoms Neurologic: reports: no symptoms Psychiatric: reports: no symptoms Endocrine: no symptoms Hematologic / Lymphatic: no symptoms Allergic / Immunologic: no symptoms Past Medical History Past Medical History: 1) GRAHAM Cirrhosis 2) Portal HTN 3) Portal Vein thrombsis 4) TIA 5) Anemia 6) CAD/NSTEMI 7) P-A fib 8) Diastolic HF (previous EF=>70%) 9) Bilateral pleural effusion L>R 10) Bladder Ca 11) CKD II 12) Depression 13) DM II 14) Dyslipidemia 15) GERD 16) GIB 17) Colonic polyp 18) Endometrial Ca 19) Hypothyroidim 20) Depression 21) Hypoxemia on 2-3L nc 22) Diverticulosis 23) Medium-sized lipoma in the ascending colon Past Medical History: COPD, depression, diabetes, GERD, GI bleed, glaucoma, high cholesterol, hypothyroidism, liver disease, other Past Surgical History: 1) Bladder tumor excision 2) Hysterectomy 3) colonoscopy 4) EGD Past Surgical History: colonoscopy, EGD, hysterectomy, other Family History FH: ovarian cancer MOTHER 1. Mother: Ovarian Ca Social History Hx Tobacco Use In Past Year?: No Smoking Status: Former Smoker Drug Use: none Marital status: Housing status: lives with significant other Occupational Status: retired Immunizations History of Influenza Vaccine: Yes Influenza Vaccine Date: Feb 09, 2016 History of Tetanus Vaccine?: Yes Tetanus Immunization Date: August 31, 2006 History of Pneumococcal: Yes Pneumococcal Date: Feb 24, 2016 History of Hepatitis B Vaccine: Yes Hepatitis Immunization Date: Mar 30, 2008 History of MDRO History of MDRO: No Allergies Coded Allergies: Iron Dextran (Verified Allergy, Severe, IRON INFUSIONS - COULDN'T BREATH - THROAT CLOSING, 05/28/16) Dobutamine (Verified Allergy, Intermediate, DIFFICULTY SWALLOWING, 05/28/16 ) Current Medications Reported Home Medications Medications Dose Route/Sig Max Daily Dose Days Date Category Dose Instructions Xalatan 0.005% Oph Cecilia (Latanoprost) 0.005 % Cecilia 1 Drops OPB HS 90 07/14/16 Reported Lasix (Furosemide) 40 Mg Tab 40 Mg PO BID 07/14/16 Reported Aristocort 0.1% (Triamcinolone Acet) 90 Appln/30 Gm Cr 1 Appln TOP BID 07/14/16 Reported Novolog Flexpen (Insulin Aspart) 100 Units/Ml Inj 20 Units SC QPM 07/14/16 Reported BEFORE SUPPER Novolog Flexpen (Insulin Aspart) 100 Units/Ml Inj 30 Units SC BIDM 07/14/16 Reported BEFORE BREAKFAST AND LUNCH Bisacodyl EC (Bisacodyl) 5 Mg Tabec 5 Mg PO BID PRN 10 06/04/16 Rx Docusate Sodium 100 Mg Cap 100 Mg PO BID 20 06/04/16 Rx Aspirin EC Low Dose (Aspirin) 81 Mg Ectab 81 Mg PO 3XWK 05/28/16 Reported Proair Respiclick (Albuterol Sulfate) 108 Mcg/Act Aer 2 Puffs INH Q4 PRN 05/28/16 Reported Lantus (Insulin Glargine) 100 Unit/Ml Inj 45 Units SC BID 05/28/16 Reported Levothyroxine Sodium 112 Mcg Tab 1 Tab PO QAM 90 10/27/15 Reported Toprol-Xl (Metoprolol Succinate) 25 Mg Tabcr 25 Mg PO BID 10/27/15 Reported Lipitor (Atorvastatin Calcium) 80 Mg Tab 80 Mg PO QPM 10/27/15 Reported Aldactone (Spironolactone) 50 Mg Tab 50 Mg PO QAM 10/27/15 Reported Effexor (Venlafaxine Hcl) 100 Mg Tab 100 Mg PO DAILY 10/27/15 Reported TAKE WITH FOOD. Xifaxan (Rifaximin) 550 Mg Tab 550 Mg PO BID 10/27/15 Reported Physical Physical Exam Vital Signs: Date Time Temp Pulse Resp B/P Pulse Ox O2 Delivery O2 Flow Rate FiO2 07/15/16 12:00 99 Nasal Cannula 2.0 07/15/16 11:10 36.6 74 17 121/41 97 Nasal Cannula 2.0 07/15/16 08:00 99 Nasal Cannula 2.0 07/15/16 07:11 36.7 87 20 127/43 96 Nasal Cannula 2.0 07/15/16 04:29 99 Nasal Cannula 2.0 07/15/16 04:00 36.8 75 18 127/47 97 Room Air 07/15/16 02:16 36.6 77 14 115/44 99 Nasal Cannula 2.0 07/15/16 00:16 36.6 78 18 130/46 96 Nasal Cannula 2.0 07/15/16 00:09 99 Nasal Cannula 2.0 07/14/16 23:49 36.6 79 21 130/46 97 2.0 07/14/16 20:45 36.6 80 22 124/40 96 07/14/16 20:35 36.6 78 16 115/42 96 3.0 07/14/16 20:27 99 Nasal Cannula 2.0 07/14/16 19:28 36.4 77 14 115/44 99 Nasal Cannula 2.0 07/14/16 17:37 36.6 91 25 107/39 97 3.0 General Appearance: NO APPARENT DISTRESS Head: NORMOCEPHALIC, ATRAUMATIC Eyes: PERRLA, NO DISCHARGE, EOMI, SCLERAE NORMAL ENT: NORMAL EAR EXAM, NORMAL NASAL EXAM, NORMAL MOUTH EXAM, NORMAL THROAT EXAM Neck: NORMAL RANGE OF MOTION, NO TENDERNESS, TRACHEA MIDLINE, NO STRIDOR, other (decreased breath sounds with dullness to percussion left greater than right/thoracic ultrasound shows B-lines in the lower thoracic cavities bilaterally as well as large pleural effusion osculation on the left and smaller pleural effusion on the right) Cardiovasular: REGULAR RATE/RHYTHM, NORMAL S1S2, NO M/G/R, NO MURMUR, other Abdomen: NON TENDER, NORMAL BOWEL SOUNDS, NO REBOUND, NO MASSES Genitourinary - Female: EXTERNAL GENITALIA NORMAL Back: NORMAL INSPECTION, NO MIDLINE TENDERNESS, NO CVA TENDERNESS Upper Extremities: NO EDEMA, NO DEFORMITY, NORMAL ROM Lower Extremities: edema, other (chronic stasis dermatitis right greater than left) Edema: Bilateral LE (2+) Pulses: carotid (R) (2+), carotid (L) (2+), posterior tibial (R), posterior tibial (L) (1+) Neuro: ALERT, ORIENTED x 3, NORMAL MOTOR EXAM, NORMAL SENSATION Reflexes: biceps (R) (1+), bicpes (L) (1+), achilles (R) (2+), achilles (L) (2+ ) Babinski Testing: right (downgoing), left (downgoing) Psychiatric: NORMAL AFFECT, NO SUICIDAL IDEATION, CONTRACTS FOR SAFETY Diagnostics Labs Results Past 24 Hours Test 07/14/16 17:11 07/14/16 17:36 07/14/16 18:00 07/14/16 20:01 Range/Units Bedside Glucose 63 82 184 70-90 mg/dl Ammonia 40.0 11-32 umol/L Test 07/15/16 06:35 07/15/16 06:37 07/15/16 11:23 Range/Units Bedside Glucose 110 232 70-90 mg/dl White Blood Count 9.75 4.8-10.8 K/uL Red Blood Count 3.05 4.2-5.4 M/uL Hemoglobin 7.7 12.0-16.0 g/dL Hematocrit 24.4 37-47 % Mean Corpuscular Volume 80.0 80-100 fL Mean Corpuscular Hemoglobin 25.2 25-34 pg Mean Corpuscular Hemoglobin Concent 31.6 32-36 g/dl RDW Standard Deviation 50.3 36.4-46.3 fL RDW Coefficient of Variation 17.2 11.5-14.5 % Platelet Count 376 130-400 K/uL Mean Platelet Volume 9.0 7.4-10.4 fL Prothrombin Time 11.4 9.0-12.0 SECONDS Prothromb Time International Ratio 1.1 0.9-1.1 Sodium Level 140 136-145 mmol/L Potassium Level 3.8 3.5-5.1 mmol/L Chloride Level 100 98-107 mmol/L Carbon Dioxide Level 35 21-32 mmol/L Anion Gap 5.0 3-11 mmol/L Blood Urea Nitrogen 30 7-18 mg/dl Creatinine 1.50 0.60-1.20 mg/dl Est Creatinine Clear Calc Drug Dose 39.7 ml/min Estimated GFR () 39.6 Estimated GFR (Non- 34.2 BUN/Creatinine Ratio 20.0 10-20 Random Glucose 102 70-99 mg/dl Estimated Average Glucose 148 mg/dl Hemoglobin A1c 6.8 4.5-5.6 % Calcium Level 8.7 8.5-10.1 mg/dl Iron Level 58 35-150 mcg/dl Total Iron Binding Capacity 414 250-450 mcg/dl Transferrin 329 200-360 mg/dl Transferrin % Saturation 13 15-50 % Ferritin 16.3 8.0-388.0 ng/ml Ammonia 63.0 11-32 umol/L Vitamin B12 Level 465 211-911 pg/mL Folate 11.48 >5.38 ng/mL Diagnostic Radiology CXR: hilar fullness, bilateral cephalization, jeffery-bronchial cuffing, left- costophrenic blunting, ABD US: low volume ascites per-report EKG EKG: NSR with RBBB Impression Assessment and Plan 75-year-old female with progressive hypoxemia: #1 Hypoxemia: Patient's SOB/hypoxemia is most likely originating from her cirrhosis/GRAHAM and anemia. The combination has led to volume overload with bilateral pleural effusions and decreased oxygen carrying capacity secondary to the anemia. At this time the patient's respiratory status is much improved status post 2 units of packed red blood cells. I suggest we continue to aggressively diuresis while monitoring renal function and optimize oxygen- carrying capacity by keeping H&H greater than 7/21. 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 I highly suggest we performed no repeat evaluation of the loculated left chylous effusion as previous or centesis at secondary pneumothorax. Right-sided pleural effusion is probably between 0.5 and 1 L. As the patient is much improved over the last 24 hours with blood transfusion I suggest we continue to monitor this with aggressive diuresis. If the patient continues to note dyspnea on exertion or shortness of breath when she is intravascularly neutral and still has right-sided pleural effusion at that time possible thoracentesis is warranted.
--- NOTE | 2016-07-15 17:01 | Progress Note ---
Internal Med Progress Note Date of Service: Jul 15, 2016. Provider Documentation: SUBJECTIVE: [] OBJECTIVE: Vital Signs-as noted below Exam: General Appearance: no apparent distress; AAOX3 Eyes: Pallor + Neck: supple Respiratory/Chest: no respiratory distress, no accessory muscle use, + decreased breath sounds Cardiovascular: regular rate, rhythm Abdomen/GI: normal bowel sounds, non tender, soft, + pertinent finding (mildly distended but soft) Extremities/Musculoskelatal: + pertinent finding (trace bilateral lower extremity edema) Skin: + pallor, + pertinent finding (chronic venous stasis changes with erythema of bilateral lower legs) Lab data as noted below. ASSESSMENT & PLAN: SYMPTOMATIC ACUTE ON CHRONIC ANEMIA, Likely blood loss secondary to upper GI bleeding Presents with increasing SOB, lightheadedness, generalized weakness, likely secondary to anemia in setting of multiple chronic conditions- COPD, B/l Pleural effusion, GRAHAM cirrhosis Hg is 6.0 on presentation; Rectal exam guaiac positive for ER provider -Possible Upper GI bleeding with hx of GRAHAM Cirrhosis, Portal HT, Varices. Has hx of AVMs in cecum -Transfused 2 units of PRBCs yesterday with dose of IV Lasix which improved symptoms--> Hb 7.7 today -Dental cut soft diet + -Monitor H & H -GI on board - Plan is for EGD on Sunday GRAHAM CIRRHOSIS with ASCITES: Abdominal US shows Low volume ascites which is increased when compared the prior June 01 study S/p paracentesis 05/29/16- 100cc chylous appearing fluid, WBC < 500, culture- no growth -US has low volume ascites, so for now hold paracentesis -Lasix increased to 40 mg BID IV, Aldactone increased to 100 mg daily per GI recommendations -Monitor CHRONIC HYPOXIC RESPIRATORY FAILURE Currently saturating well on 1 liters NC (back to baseline); on last admission was newly started on home O2 1 liter at rest, 2 liters with activity -Multifactorial: Has underlying COPD, Chronic Bilateral pleural effusions, GRAHAM cirrhosis with portal HTN and ascites, normal EF on 2013 echo -CXR shows resolving pulmonary vascular congestion, Lt basilar opacity likely combination of pleural fluid and LLL atelectasis/ consolidation -S/P Left thoracentesis last admission 06/01/16 -- 1.4 L chylous effusion; complicated by small pneumothorax post-procedure -Pulmonary consulted- no further recommendations. If worsens, may consider thoracentesis for right pleural effusion (0.5-1 L), but would avoid left thoracentesis as chronic, loculate, chylous effusion and was complicated by small pneumothorax last admission. Appreciate inputs. H/O HEPATIC ENCEPHALOPATHY Mental status normal- AAOX3 as at baseline Ammonia level-63 -Continue Rifaximin, Dulcolax, Colace. Unable to tolerate lactulose in past HYPOKALEMIA -Replaced and monitor NESTOR ON CKD STAGE IV Creat is 1.5; baseline 1.1-1.3 -Monitor renal function while on IV diuretic DM II Uncontrolled Last A1c: 9.9 02/2016 -Lantus , ISS to be continued -Pharmacy consult HYPOTHYROIDISM: -Continue Levothyroxine PAROXYSMAL AFIB currently in NSR; rate controlled -Continue Beta moises -Not on anticoagulated due to anemia/GI bleeding DVT PROPHYLAXIS -SCDs due to hx varices, anemia, GI bleeding CODE STATUS -Full code DISPOSITION: PT/OT ordered Continue with tele monitoring Discussed with by bedside Vital Signs: Date Time Temp Pulse Resp B/P Pulse Ox O2 Delivery O2 Flow Rate FiO2 07/15/16 16:00 92 Room Air 07/15/16 15:20 36.3 83 13 125/42 92 Nasal Cannula 2.0 07/15/16 12:00 99 Nasal Cannula 2.0 07/15/16 11:10 36.6 74 17 121/41 97 Nasal Cannula 2.0 07/15/16 08:00 99 Nasal Cannula 2.0 07/15/16 07:11 36.7 87 20 127/43 96 Nasal Cannula 2.0 07/15/16 04:29 99 Nasal Cannula 2.0 07/15/16 04:00 36.8 75 18 127/47 97 Room Air 07/15/16 02:16 36.6 77 14 115/44 99 Nasal Cannula 2.0 07/15/16 00:16 36.6 78 18 130/46 96 Nasal Cannula 2.0 07/15/16 00:09 99 Nasal Cannula 2.0 07/14/16 23:49 36.6 79 21 130/46 97 2.0 07/14/16 20:45 36.6 80 22 124/40 96 07/14/16 20:35 36.6 78 16 115/42 96 3.0 07/14/16 20:27 99 Nasal Cannula 2.0 07/14/16 19:28 36.4 77 14 115/44 99 Nasal Cannula 2.0 07/14/16 17:37 36.6 91 25 107/39 97 3.0 Lab Results: Results Past 24 Hours Test 07/14/16 17:36 07/14/16 18:00 07/14/16 20:01 07/15/16 06:35 Range/Units Bedside Glucose 82 184 110 70-90 mg/dl Ammonia 40.0 11-32 umol/L Test 07/15/16 06:37 07/15/16 11:23 07/15/16 16:11 Range/Units White Blood Count 9.75 4.8-10.8 K/uL Red Blood Count 3.05 4.2-5.4 M/uL Hemoglobin 7.7 12.0-16.0 g/dL Hematocrit 24.4 37-47 % Mean Corpuscular Volume 80.0 80-100 fL Mean Corpuscular Hemoglobin 25.2 25-34 pg Mean Corpuscular Hemoglobin Concent 31.6 32-36 g/dl RDW Standard Deviation 50.3 36.4-46.3 fL RDW Coefficient of Variation 17.2 11.5-14.5 % Platelet Count 376 130-400 K/uL Mean Platelet Volume 9.0 7.4-10.4 fL Prothrombin Time 11.4 9.0-12.0 SECONDS Prothromb Time International Ratio 1.1 0.9-1.1 Sodium Level 140 136-145 mmol/L Potassium Level 3.8 3.5-5.1 mmol/L Chloride Level 100 98-107 mmol/L Carbon Dioxide Level 35 21-32 mmol/L Anion Gap 5.0 3-11 mmol/L Blood Urea Nitrogen 30 7-18 mg/dl Creatinine 1.50 0.60-1.20 mg/dl Est Creatinine Clear Calc Drug Dose 39.7 ml/min Estimated GFR () 39.6 Estimated GFR (Non- 34.2 BUN/Creatinine Ratio 20.0 10-20 Random Glucose 102 70-99 mg/dl Estimated Average Glucose 148 mg/dl Hemoglobin A1c 6.8 4.5-5.6 % Calcium Level 8.7 8.5-10.1 mg/dl Iron Level 58 35-150 mcg/dl Total Iron Binding Capacity 414 250-450 mcg/dl Transferrin 329 200-360 mg/dl Transferrin % Saturation 13 15-50 % Ferritin 16.3 8.0-388.0 ng/ml Ammonia 63.0 11-32 umol/L Vitamin B12 Level 465 211-911 pg/mL Folate 11.48 >5.38 ng/mL Bedside Glucose 232 193 70-90 mg/dl
[2016-07-15] MEDS: FUROSEMIDE INJ 40 MG in SYRINGE 0 ML IV SCH (17:19)
[2016-07-15] MEDS: LATANOPROST 0.005% OP SOLN 2.5 ML BTL OPB SCH (20:16)
[2016-07-15] MEDS: ATORVASTATIN 20 MG TAB PO SCH (20:17)
[2016-07-16] VITALS (13 sets, daily range): BP systolic 115–132; BP diastolic 41–68; PULSE 67–82; TEMP 36.1–37.1; O2SAT 94–100
[2016-07-16] MEDS: PANTOprazole INJ 40 MG in DEXTROSE 5% 100ML IV SCH ×5 (04:20→23:38)
[2016-07-16 06:02] LABS: HEMATOCRIT 24.8 % (37-47); MEAN CELL VOLUME 80.8 fL (80-100); MEAN CORPUSCULAR HEMOGLOBIN 24.4 pg (25-34); MEAN CORPUSCULAR HGB CONC 30.2 g/dl (32-36); MEAN PLATELET VOLUME 9.1 fL (7.4-10.4); PLATELET COUNT 362 K/uL (130-400); RED BLOOD COUNT 3.07 M/uL (4.2-5.4); WHITE BLOOD COUNT 9.52 K/uL (4.8-10.8)
[2016-07-16] MEDS: LEVOTHYROXINE 112 MCG TAB PO SCH (06:34)
[2016-07-16 06:59] LABS: BUN/CREATININE RATIO 17.4 (10-20); CALCIUM 8.6 mg/dl (8.5-10.1); CREATININE 1.8 mg/dl (0.60-1.20); POTASSIUM 4.2 mmol/L (3.5-5.1)
[2016-07-16] MEDS: VENLAFAXINE HCL 50 MG TAB PO SCH (07:44)
[2016-07-16] MEDS: DOCUSATE SODIUM 100 MG CAP PO SCH ×2 (07:44→20:54)
[2016-07-16] MEDS: METOPROLOL SUCC 25MG EXT REL TAB PO SCH ×2 (07:44→20:53)
[2016-07-16] MEDS: SPIRONOLACTONE 100 MG TAB PO SCH (07:45)
[2016-07-16] MEDS: POLYETHYLENE (MIRALAX) 17 GM PACK PO SCH (07:45)
[2016-07-16] MEDS: TRIAMCINOLONE ACET 0.1% CR 15 GM TUBE EXT SCH ×2 (07:45→20:54)
[2016-07-16] MEDS: RIFAXIMIN TAB 550 MG TAB PO SCH ×2 (07:45→20:54)
[2016-07-16] MEDS: INSULIN GLARGINE SOLOSTAR 100 UNITS/ML 3 ML PEN SC SCH ×2 (07:49→21:00)
[2016-07-16] MEDS: INSULIN ASPART 100 UNITS/ML 3 ML PEN SC SCH ×4 (07:49→20:59)
[2016-07-16] MEDS: FUROSEMIDE INJ 40 MG in SYRINGE 0 ML IV SCH (07:56)
--- NOTE | 2016-07-16 10:56 | Progress Note ---
Internal Med Progress Note Date of Service: Jul 16, 2016. Provider Documentation: SUBJECTIVE: Patient is doing better. Clinically improved- generalized weakness, fatigue better Had one small dark tarry BM. No abdominal pain, diarrhea, sob, fever, chills On 2 L oxygen as at home OBJECTIVE: Vital Signs-as noted below Exam: General Appearance: no apparent distress; AAOX3 Eyes: Pallor + Neck: supple Respiratory/Chest: no respiratory distress, no accessory muscle use, + decreased breath sounds B/L Cardiovascular: regular rate, rhythm Abdomen/GI: normal bowel sounds, non tender, soft, + pertinent finding (mildly distended but soft) Extremities/Musculoskelatal: + pertinent finding (trace bilateral lower extremity edema) Skin: + pallor, + pertinent finding (chronic venous stasis changes with erythema of bilateral lower legs) Lab data as noted below. ASSESSMENT & PLAN: SYMPTOMATIC ACUTE ON CHRONIC ANEMIA, Likely blood loss secondary to upper GI bleeding Presents with increasing SOB, lightheadedness, generalized weakness, likely secondary to anemia in setting of multiple chronic conditions- COPD, B/l Pleural effusion, GRAHAM cirrhosis Hg is 6.0 on presentation; Rectal exam guaiac positive for ER provider -Possible Upper GI bleeding with hx of GRAHAM Cirrhosis, Portal HT, Varices. Has hx of AVMs in cecum -Transfused 2 units of PRBCs on 07/14/16 with dose of IV Lasix which improved symptoms--> Hb 7.5 today --> Transfuse 1 more unit of PRBC today -Dental cut soft diet +, NPO post midnight for EGD -Monitor H & H -GI on board - Plan is for EGD on Sunday GRAHAM CIRRHOSIS with ASCITES: Abdominal US shows Low volume ascites which is increased when compared the prior June 01 study S/p paracentesis 05/29/16- 100cc chylous appearing fluid, WBC < 500, culture- no growth -US has low volume ascites, so for now hold paracentesis -Lasix increased to 40 mg BID IV--> Decrease to 20 mg IV BID due to elevated creatinine, Aldactone increased to 100 mg daily per GI recommendations -Monitor CHRONIC HYPOXIC RESPIRATORY FAILURE Currently saturating well on 2 liters NC (back to baseline); on last admission was newly started on home O2 1 liter at rest, 2 liters with activity -Multifactorial: Has underlying COPD, Chronic Bilateral pleural effusions, GRAHAM cirrhosis with portal HTN and ascites, normal EF on 2013 echo -CXR shows resolving pulmonary vascular congestion, Lt basilar opacity likely combination of pleural fluid and LLL atelectasis/ consolidation -S/P Left thoracentesis last admission 06/01/16 -- 1.4 L chylous effusion; complicated by small pneumothorax post-procedure -Pulmonary consulted- no further recommendations. If worsens, may consider thoracentesis for right pleural effusion (0.5-1 L), but would avoid left thoracentesis as chronic, loculate, chylous effusion and was complicated by small pneumothorax last admission. Appreciate inputs. H/O HEPATIC ENCEPHALOPATHY Mental status normal- AAOX3 as at baseline Ammonia level-63 -Continue Rifaximin, Dulcolax, Colace. Unable to tolerate lactulose in past HYPOKALEMIA -Replaced and monitor NESTOR ON CKD STAGE IV Creat is 1.8; baseline 1.1-1.3 -Monitor renal function while on IV diuretic- decrease dose of lasix today DM II Uncontrolled Last A1c: 9.9 02/2016 -GRICEL Conde to be continued -Pharmacy consult HYPOTHYROIDISM: -Continue Levothyroxine PAROXYSMAL AFIB currently in NSR; rate controlled -Continue Beta moises -Not on anticoagulated due to anemia/GI bleeding DVT PROPHYLAXIS -SCDs due to hx varices, anemia, GI bleeding CODE STATUS -Full code DISPOSITION: PT/OT ordered Ok to transfer to [facility] [place] Vital Signs: Date Time Temp Pulse Resp B/P Pulse Ox O2 Delivery O2 Flow Rate FiO2 07/16/16 10:45 36.6 75 18 122/41 98 07/16/16 08:00 Nasal Cannula 2.0 07/16/16 07:18 37.1 81 25 123/43 95 Nasal Cannula 2.0 07/16/16 04:30 36.1 81 18 116/42 95 Nasal Cannula 1.0 07/16/16 04:00 Nasal Cannula 2.0 07/16/16 00:01 Nasal Cannula 2.0 07/15/16 23:25 36.9 83 20 133/42 99 Nasal Cannula 1.0 07/15/16 20:00 Nasal Cannula 2.0 07/15/16 19:10 36.6 78 18 135/41 96 2.0 07/15/16 16:00 92 Room Air 07/15/16 15:20 36.3 83 13 125/42 92 Nasal Cannula 2.0 07/15/16 12:00 99 Nasal Cannula 2.0 07/15/16 11:10 36.6 74 17 121/41 97 Nasal Cannula 2.0 Lab Results: Results Past 24 Hours Test 07/15/16 11:23 07/15/16 16:11 07/15/16 20:14 07/16/16 05:50 Range/Units Bedside Glucose 232 193 203 70-90 mg/dl White Blood Count 9.52 4.8-10.8 K/uL Red Blood Count 3.07 4.2-5.4 M/uL Hemoglobin 7.5 12.0-16.0 g/dL Hematocrit 24.8 37-47 % Mean Corpuscular Volume 80.8 80-100 fL Mean Corpuscular Hemoglobin 24.4 25-34 pg Mean Corpuscular Hemoglobin Concent 30.2 32-36 g/dl RDW Standard Deviation 50.9 36.4-46.3 fL RDW Coefficient of Variation 17.2 11.5-14.5 % Platelet Count 362 130-400 K/uL Mean Platelet Volume 9.1 7.4-10.4 fL Sodium Level 138 136-145 mmol/L Potassium Level 4.2 3.5-5.1 mmol/L Chloride Level 97 98-107 mmol/L Carbon Dioxide Level 36 21-32 mmol/L Anion Gap 5.0 3-11 mmol/L Blood Urea Nitrogen 31 7-18 mg/dl Creatinine 1.80 0.60-1.20 mg/dl Est Creatinine Clear Calc Drug Dose 33.2 ml/min Estimated GFR () 31.8 Estimated GFR (Non- 27.4 BUN/Creatinine Ratio 17.4 10-20 Random Glucose 171 70-99 mg/dl Calcium Level 8.6 8.5-10.1 mg/dl Test 07/16/16 06:41 Range/Units Bedside Glucose 181 70-90 mg/dl
--- NOTE | 2016-07-16 13:58 | Pharmacy Progress Note ---
Glycemic Control: Progress Nt Date of Service Jul 16, 2016. Scope Glycemic Pharmacist consulted by Dr Rosenthal on 07/14/16 for glycemic control and to write orders per [facility] inpatient glycemic control protocol. Objective Accuchecks BSG (last 24hrs): Test 07/15/16 16:11 07/15/16 20:14 07/16/16 05:50 07/16/16 06:41 Bedside Glucose 193 mg/dl (70-90) 203 mg/dl (70-90) 181 mg/dl (70-90) Random Glucose 171 mg/dl (70-99) Test 07/16/16 11:33 Bedside Glucose 254 mg/dl (70-90) HbA1c: Test 07/15/16 06:37 Hemoglobin A1c 6.8 % (4.5-5.6) H Recent Pertinent Medications Outpatient Anti-diabetic Regimen: * Lantus 45 units SQ BID * NovoLog 30 units with Breakfast & lunch The patient is currently ordered/receiving: * Basal insulin: Lantus SQ every 12 hours - dosing based on BSG d/ t reduced PO intake and hypo on admission * Correctional Insulin: Novolog Correction per scale ACHS Goal Range: Low 100 mg/dL - High 140 mg/dL Correction Factor: 30 mg/dL/unit * Prandial insulin: Per carb ratio of 1 unit per 10 grams CHO consumed Risk Factors for Insulin Resistance: * IVF: Protonix mixed in dextrose Assessment & Plan ASSESSMENT: * 75yo T2DM female known to pharmacy from previous admissions/glycemic consults - most recently 05/2016 admission * Pt typically requires less insulin while admitted as compared to outpatient dosing (when only on minimal steroids/stressors), total daily doses for this scenario ranges 60-80 units/day. However, Pt can require 160+ units/day while on moderate dose prednisone daily * Pt currently admitted with GI bleed, symptomatic anemia and will be ordered reduced diet of clear liquids and then NPO Sunday evening prior to EGD Sunday * Anticipating insulin regimen will need significantly reduced as compared to previous admission d/t: no steroids, reduced diet, no infection. Started SQ basal bolus insulin regimen based on weight and minimal stress. Increased basal insulin doses given for BSG > 180mg/dl. * Pt may need reduced insulin dosing Sunday AM prior to EGD d/t NPO status * ADA & AACE recommend a goal blood sugar range 140-180 mg/dl for the majority of critically ill & non-critically ill patients. However, more stringent targets may be selected in individual cases. Will utilize more stringent goal of 110-140mg/dl based on patient age, comorbidities, and tight glycemic control as an outpatient. Will keep the "low" end of the goal range slightly elevated to help prevent hypo. * Patient is currently receiving an average of 50 units of insulin per day with sub-optimal control * 27 units of basal insulin --> AM fasting BSG is elevated, basal insulin needs increased * 20 units of prandial/correctional insulin --> Post-prandial BSGs are elevated /BSGs rise throughout the day, CF/CR needs tightened * BSGs ranging 110-232 over the past 24hrs * Insulin regimen will need adjusted for the next 24hrs d/t : * NPO after midnight --> will decrease basal insulin dosing tomorrow for NPO * Pt is receiving Lantus dosing based on BSG --> will order a set dose based on estimated total daily dose of ~ 60-70 units/day PLAN FOR INPATIENT GLYCEMIC CONTROL: * Change basal insulin with Lantus to 18 units SQ BID * One time dose reduction Sunday for NPO/EGD * If BSG 140mg/dl or below --> Do not give Lantus while NPO * If BSG 141-200mg/dl --> Give Lantus 9 units (weight/st =1) * If BSG 201mg/dl or above --> Give Lantus 18 units (weight/st =2) * Tighten NovoLog per scale ACHS or Q6hrs while NPO * Goal Range: Low 110 mg/dL - High 140 mg/dL * Correction Factor: 20 mg/dL/unit * Nutritional / Prandial insulin per carb ratio of 1 unit per 7 grams CHO consumed * Please note that the plan above was derived based on current level of insulin resistance and hospital stress. These recommendations are appropriate for inpatient admission only. Plan of care upon discharge will need to be reassessed to avoid potential outpatient hypo/hyperglycemia. Thank you.
[2016-07-16] MEDS ORDERED: ALBUTEROL HFA 8 GM INHALER INH PRN (15:15)
[2016-07-16] MEDS ORDERED: FUROSEMIDE INJ 20 MG in SYRINGE 0 ML IV SCH (17:00)
[2016-07-16] MEDS: ATORVASTATIN 20 MG TAB PO SCH (20:53)
[2016-07-16] MEDS: LATANOPROST 0.005% OP SOLN 2.5 ML BTL OPB SCH (20:54)
[2016-07-17] MEDS: LEVOTHYROXINE 112 MCG TAB PO SCH (05:09)
[2016-07-17] MEDS: PANTOprazole INJ 40 MG in DEXTROSE 5% 100ML IV SCH ×4 (05:09→21:00)
[2016-07-17 06:14] LABS: HEMATOCRIT 28.4 % (37-47); MEAN CELL VOLUME 79.8 fL (80-100); MEAN CORPUSCULAR HEMOGLOBIN 24.7 pg (25-34); MEAN PLATELET VOLUME 9.3 fL (7.4-10.4); PLATELET COUNT 351 K/uL (130-400); RED BLOOD COUNT 3.56 M/uL (4.2-5.4); WHITE BLOOD COUNT 8.57 K/uL (4.8-10.8)
[2016-07-17 06:48] LABS: BUN/CREATININE RATIO 16.8 (10-20); CALCIUM 8.7 mg/dl (8.5-10.1); CREATININE 1.9 mg/dl (0.60-1.20); POTASSIUM 4.2 mmol/L (3.5-5.1)
[2016-07-17 07:50] VITALS: BP 123/64; PULSE 75; TEMP 36.9; O2SAT 96
[2016-07-17] MEDS: INSULIN ASPART 100 UNITS/ML 3 ML PEN SC SCH ×4 (08:41→20:54)
[2016-07-17] MEDS: TRIAMCINOLONE ACET 0.1% CR 15 GM TUBE EXT SCH ×2 (08:42→20:47)
--- NOTE | 2016-07-17 08:56 | Progress Note ---
Internal Med Progress Note Date of Service: Jul 17, 2016. Provider Documentation: SUBJECTIVE: Patient is doing much better today. Clinically improved - generalized weakness, fatigue improved. No BMs since yesterday. No abdominal pain, diarrhea, sob, fever, chills On 2 L oxygen as at home OBJECTIVE: Vital Signs-as noted below Exam: General Appearance: no apparent distress; AAOX3 Eyes: Pallor + Neck: supple Respiratory/Chest: no respiratory distress, no accessory muscle use, + decreased breath sounds B/L Cardiovascular: regular rate, rhythm Abdomen/GI: normal bowel sounds, non tender, soft, + pertinent finding (mildly distended but soft) Extremities/Musculoskelatal: + pertinent finding (trace bilateral lower extremity edema) Skin: + pallor, + pertinent finding (chronic venous stasis changes with erythema of bilateral lower legs) Lab data as noted below. ASSESSMENT & PLAN: SYMPTOMATIC ACUTE ON CHRONIC ANEMIA, Likely blood loss secondary to upper GI bleeding Presented with increasing SOB, lightheadedness, generalized weakness, likely secondary to anemia in setting of multiple chronic conditions - COPD, Chronic B/ l Pleural effusion, GRAHAM cirrhosis. Hg 6.0 on presentation; Rectal exam guaiac positive for ER provider -Possible Upper GI bleeding with hx of GRAHAM Cirrhosis, Portal HT, Varices. Has hx of AVMs in cecum -For EGD today AM -On IV protonix drip -Transfused 3 units of PRBCs since admission (last 1 unit on 07/16/16) -Monitor H & H--> 8.8 today -GI on board. Appreciate inputs GRAHAM CIRRHOSIS with ASCITES: Abdominal US shows Low volume ascites which is increased when compared the prior June 01 study S/p paracentesis 05/29/16 (last admission)- 100cc chylous appearing fluid, WBC < 500, culture- no growth -Lasix increased to 40 mg BID IV and Aldactone to 100 mg on presentation per GI -->Decreased Lasix to 20 mg IV BID yesterday --> Today will hold it due to elevated creatinine and US showing low volume ascites. Will likely need to change diuretics dosing back to original home doses as low volume ascites and no issues with decompensation this admission. 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 If worsens, may consider thoracentesis for right pleural effusion (0.5-1 L), but would avoid left thoracentesis as chronic, loculated, chylous effusion and was complicated by small pneumothorax last admission. Appreciate inputs. H/O HEPATIC ENCEPHALOPATHY Mental status normal- AAOX3 as at baseline, not an issue this admission Ammonia level-63 -Continue Rifaximin 550 mg BID, Dulcolax 10 mg BID PRN, Colace 100 mg PO BID, Miralex 17 gram daily. Unable to tolerate lactulose in past -Need to maintain 2-3 BMs daily. Has not had one yesterday. Adjust laxatives accordingly -Repeat Ammonia in AM HYPOKALEMIA -Replaced and monitor NESTOR ON CKD STAGE IV Creat is 1.9; baseline 1.1-1.3 -Monitor renal function while on IV diuretic- held lasix today -Monitor DM II Uncontrolled Last A1c: 9.9 02/2016 -GRICEL Conde to be continued -Pharmacy consult HYPOTHYROIDISM: -Continue Levothyroxine PAROXYSMAL AFIB currently in NSR; rate controlled -Continue Beta moises -Not on anticoagulated due to anemia/GI bleeding DVT PROPHYLAXIS -SCDs due to hx varices, anemia, GI bleeding CODE STATUS -Full code DISPOSITION: PT/OT ordered Expected discharge home when stable. -EGD today, Need to monitor creatinine while adjusting lasix/aldactone dosing, H & H monitoring. -Discharge in 1-2 days. Vital Signs: Date Time Temp Pulse Resp B/P Pulse Ox O2 Delivery O2 Flow Rate FiO2 07/17/16 07:50 36.9 75 18 123/64 96 Nasal Cannula 2.0 07/16/16 23:58 Nasal Cannula 2.0 07/16/16 23:44 36.7 74 18 132/68 97 Nasal Cannula 2.0 07/16/16 19:48 36.5 71 16 123/64 98 Nasal Cannula 2.0 07/16/16 19:45 Nasal Cannula 2.0 07/16/16 16:00 98 Nasal Cannula 2.0 07/16/16 15:27 36.5 71 16 123/64 98 Nasal Cannula 2.0 07/16/16 13:30 36.5 82 16 123/65 100 2.0 07/16/16 12:30 36.5 79 16 115/49 98 2.0 07/16/16 11:42 36.9 76 20 100 2.0 07/16/16 11:30 36.9 76 20 130/50 100 2.0 07/16/16 11:05 36.8 67 20 129/45 94 07/16/16 10:54 76 18 126/42 98 2.0 07/16/16 10:45 36.6 75 18 122/41 98 Lab Results: Results Past 24 Hours Test 07/16/16 11:33 07/16/16 16:32 07/16/16 20:46 07/17/16 05:45 Range/Units Bedside Glucose 254 185 193 70-90 mg/dl White Blood Count 8.57 4.8-10.8 K/uL Red Blood Count 3.56 4.2-5.4 M/uL Hemoglobin 8.8 12.0-16.0 g/dL Hematocrit 28.4 37-47 % Mean Corpuscular Volume 79.8 80-100 fL Mean Corpuscular Hemoglobin 24.7 25-34 pg Mean Corpuscular Hemoglobin Concent 31.0 32-36 g/dl RDW Standard Deviation 49.5 36.4-46.3 fL RDW Coefficient of Variation 17.1 11.5-14.5 % Platelet Count 351 130-400 K/uL Mean Platelet Volume 9.3 7.4-10.4 fL Sodium Level 140 136-145 mmol/L Potassium Level 4.2 3.5-5.1 mmol/L Chloride Level 98 98-107 mmol/L Carbon Dioxide Level 36 21-32 mmol/L Anion Gap 6.0 3-11 mmol/L Blood Urea Nitrogen 32 7-18 mg/dl Creatinine 1.90 0.60-1.20 mg/dl Est Creatinine Clear Calc Drug Dose 31.5 ml/min Estimated GFR () 29.8 Estimated GFR (Non- 25.7 BUN/Creatinine Ratio 16.8 10-20 Random Glucose 139 70-99 mg/dl Calcium Level 8.7 8.5-10.1 mg/dl Test 07/17/16 07:35 Range/Units Bedside Glucose 149 70-90 mg/dl
[2016-07-17] MEDS ORDERED: BISACODYL 5 MG TABEC PO PRN (09:00)
[2016-07-17] MEDS ORDERED: INSULIN GLARGINE SOLOSTAR 100 UNITS/ML 3 ML PEN SC SCH (09:00)
[2016-07-17 09:01] VITALS: BP 123/64; PULSE 75; TEMP 36.9; O2SAT 96
--- NOTE | 2016-07-17 09:52 | Pharmacy Progress Note ---
Glycemic Control: Progress Nt Date of Service Jul 17, 2016. Scope Glycemic Pharmacist consulted by Dr Rosenthal on 07/14 for glycemic control and to write orders per [facility] inpatient glycemic control protocol. Objective Accuchecks BSG (last 24hrs): Test 07/16/16 11:33 07/16/16 16:32 07/16/16 20:46 07/17/16 05:45 Bedside Glucose 254 mg/dl (70-90) 185 mg/dl (70-90) 193 mg/dl (70-90) Random Glucose 139 mg/dl (70-99) Test 07/17/16 07:35 Bedside Glucose 149 mg/dl (70-90) Laboratory Data (last 24hrs) Test 07/17/16 05:45 Anion Gap 6.0 mmol/L BUN/Creatinine Ratio 16.8 Blood Urea Nitrogen 32 mg/dl Creatinine 1.90 mg/dl Potassium Level 4.2 mmol/L Sodium Level 140 mmol/L White Blood Count 8.57 K/uL HbA1c: Test 07/15/16 06:37 Hemoglobin A1c 6.8 % (4.5-5.6) H Recent Pertinent Medications Outpatient Anti-diabetic Regimen: * Lantus 45 units SQ BID * NovoLog 30 units with Breakfast & lunch, 20 units with dinner The patient is currently ordered/receiving: * Basal insulin: Lantus 18 units BID - dosed per "sliding scale" this AM as pt will be NPO for EGD * Correctional Insulin: Novolog Correction per scale ACHS Goal Range: Low 100 mg/dL - High 140 mg/dL Correction Factor: 20 mg/dL/unit * Prandial insulin: Per carb ratio of 1 unit per 7 grams CHO consumed Risk Factors for Insulin Resistance: * IVF: Protonix mixed in dextrose * Diet: currently NPO for EGD today Assessment & Plan ASSESSMENT: 07/16/16 * 75yo T2DM female known to pharmacy from previous admissions/glycemic consults - most recently 05/2016 admission * Pt typically requires less insulin while admitted as compared to outpatient dosing (when only on minimal steroids/stressors), total daily doses for this scenario ranges 60-80 units/day. However, Pt can require 160+ units/day while on moderate dose prednisone daily * Pt currently admitted with GI bleed, symptomatic anemia and will be ordered reduced diet of clear liquids and then NPO Sunday evening prior to EGD Sunday * Anticipating insulin regimen will need significantly reduced as compared to previous admission d/t: no steroids, reduced diet, no infection. Started SQ basal bolus insulin regimen based on weight and minimal stress. Increased basal insulin doses given for BSG > 180mg/dl. * Pt may need reduced insulin dosing Sunday AM prior to EGD d/t NPO status * ADA & AACE recommend a goal blood sugar range 140-180 mg/dl for the majority of critically ill & non-critically ill patients. However, more stringent targets may be selected in individual cases. Will utilize more stringent goal of 110-140mg/dl based on patient age, comorbidities, and tight glycemic control as an outpatient. Will keep the "low" end of the goal range slightly elevated to help prevent hypo. * Patient is currently receiving an average of 50 units of insulin per day with sub-optimal control * 27 units of basal insulin --> AM fasting BSG is elevated, basal insulin needs increased * 20 units of prandial/correctional insulin --> Post-prandial BSGs are elevated /BSGs rise throughout the day, CF/CR needs tightened * BSGs ranging 110-232 over the past 24hrs * Insulin regimen will need adjusted for the next 24hrs d/t : * NPO after midnight --> will decrease basal insulin dosing tomorrow for NPO * Pt is receiving Lantus dosing based on BSG --> will order a set dose based on estimated total daily dose of ~ 60-70 units/day 07/17/16 * Ms. Coy received 60 units of insulin yesterday with BSGs ranging from 139- 254 mg/dL in the past 24 hours * She will receive 9 units of Lantus this AM based upon BSG since she is NPO for EGD this AM * Fasting is improved this AM so basal dose of 18 units BID seems appropriate - will plan to continue this after AM dose today * CF/CR just tightened last night so it's not clear yet if this is appropriate - will plan to continue for now * Noted that the patient may be d/c'd home in 1-2 days - please see d/c recs below PLAN FOR INPATIENT GLYCEMIC CONTROL: * Continue Lantus 18 units BID * Continue Novolog ACHS * Goal 110-140 mg/dL * CF 20 mg/dL/unit * CR 1 unit per 7 gm CHO consumed RECOMMENDATIONS FOR DISCHARGE: * A1c indicates good control * Resume outpatient regimen upon discharge Thank you.
[2016-07-17] MEDS ORDERED: PROPOFOL IV EMULSION 10 MG/ML 20 ML VIAL IV ONE (10:26)
[2016-07-17] MEDS ORDERED: LIDOCAINE HCL 2% 2 ML VIAL (20MG/ML) ONE (10:26)
[2016-07-17] MEDS ORDERED: KETAMINE HCL INJ 50 MG/ML 10 ML VIAL ONE (10:31)
--- NOTE | 2016-07-17 10:49 | GI REPORT ---
Procedure Date: 07/17/2016 10:35 AM Procedure: Upper GI endoscopy Indications: Iron deficiency anemia Medicines: General Anesthesia Complications: No immediate complications. Estimated blood loss: None. Estimated Blood Loss: Estimated blood loss: none. Procedure: Pre-Anesthesia Assessment: - Pre-Anesthesia Assessment: - Prior to the procedure, a History and Physical was performed, and patient medications, allergies and sensitivities were reviewed. The patient's tolerance of previous anesthesia was reviewed. Please see [employer] for complete details. - The risks and benefits of the procedure and the sedation options and risks were discussed with the patient. All questions were answered and informed consent was obtained. - Patient identification and proposed procedure were verified prior to the procedure by the physician and the nurse. The procedure was verified in the pre-procedure area in the procedure room. After obtaining informed consent, the endoscope was passed carefully and meticuously under direct vision and only advanced when the lumen was clearly identified, C02 insuflation was utilized throughout the entirity of the procedure. Throughout the procedure, the patient's blood pressure, pulse, and oxygen saturations were monitored continuously. After obtaining informed consent, the endoscope was passed under direct vision. Throughout the procedure, the patient's blood pressure, pulse, and oxygen saturations were monitored continuously. The Scope was introduced through the mouth, and advanced to the second part of duodenum. The upper GI endoscopy was accomplished without difficulty. The patient tolerated the procedure well. Findings: Grade I, small (< 5 mm) varices were found at the gastroesophageal junction. They were diminutive in size. The entire examined stomach was normal. The examined duodenum was normal. No evidence of recent bleeding or bleeding source Impression: - Grade I, small (< 5 mm) esophageal varices. - Normal stomach. - Normal examined duodenum. - No specimens collected. Recommendation: - [facility]. - Has NESTOR, but one could consider repeat colonoscopy given prior history of AVM's, will discuss with patient and team. However, dyspnea has persisted even after blood transfusion and may be related to patient's known pulmonary issues. Camden Russell MD 07/17/2016 10:48:26 AM This report has been signed electronically. Note Initiated On: 07/17/2016 10:35 AM I attest to the content of the Intraoperative Record and orders documented therein, exceptions below
[2016-07-17 11:41] VITALS: BP 121/52; PULSE 82; TEMP 36.6; O2SAT 90
[2016-07-17] MEDS: POLYETHYLENE (MIRALAX) 17 GM PACK PO SCH (12:44)
[2016-07-17] MEDS: DOCUSATE SODIUM 100 MG CAP PO SCH ×2 (12:44→20:48)
[2016-07-17] MEDS: RIFAXIMIN TAB 550 MG TAB PO SCH ×2 (12:44→20:49)
[2016-07-17] MEDS: METOPROLOL SUCC 25MG EXT REL TAB PO SCH ×2 (12:44→20:48)
[2016-07-17] MEDS: SPIRONOLACTONE 100 MG TAB PO SCH (12:44)
[2016-07-17] MEDS: VENLAFAXINE HCL 50 MG TAB PO SCH (12:44)
--- NOTE | 2016-07-17 13:39 | Anesthesiology Progress Note ---
Anesthesia Post Op Note Date & Time Jul 17, 2016 at 13:38 Vital Signs Pain Intensity: 0.0 Vital Signs Past 12 Hours Date Time Temp Pulse Resp B/P Pulse Ox O2 Delivery O2 Flow Rate FiO2 07/17/16 11:41 36.6 82 18 121/52 90 Nasal Cannula 2.0 07/17/16 11:15 36.6 77 22 122/52 95 Nasal Cannula 2.0 07/17/16 11:00 79 24 109/43 97 Nasal Cannula 2.0 07/17/16 10:45 79 24 117/44 97 Nasal Cannula 2.0 07/17/16 10:20 36.6 83 24 136/54 95 Nasal Cannula 2.0 07/17/16 09:01 36.9 75 18 123/64 96 Nasal Cannula 2.0 07/17/16 08:00 Nasal Cannula 2.0 07/17/16 07:50 36.9 75 18 123/64 96 Nasal Cannula 2.0 Notes Mental Status: alert / awake / arousable, participated in evaluation Pt Amnestic to Procedure: Yes Nausea / Vomiting: adequately controlled Pain: adequately controlled Airway Patency, RR, SpO2: stable & adequate BP & HR: stable & adequate Hydration State: stable & adequate Anesthetic Complications: no major complications apparent
[2016-07-17 15:02] VITALS: BP 124/55; PULSE 74; TEMP 36.4; O2SAT 93
[2016-07-17 16:00] VITALS: O2SAT 93
[2016-07-17 20:46] VITALS: BP 118/62; PULSE 78; O2SAT 93
[2016-07-17] MEDS: LATANOPROST 0.005% OP SOLN 2.5 ML BTL OPB SCH (20:46)
[2016-07-17] MEDS: ATORVASTATIN 20 MG TAB PO SCH (20:48)
[2016-07-17] MEDS: INSULIN GLARGINE SOLOSTAR 100 UNITS/ML 3 ML PEN SC SCH (20:55)
[2016-07-18] VITALS: O2SAT 93
[2016-07-18 01:26] VITALS: BP 146/66; PULSE 80; TEMP 36.7; O2SAT 89
[2016-07-18] MEDS: PANTOprazole INJ 40 MG in DEXTROSE 5% 100ML IV SCH ×5 (01:26→20:53)
[2016-07-18] MEDS: LEVOTHYROXINE 112 MCG TAB PO SCH (06:04)
[2016-07-18 07:44] VITALS: BP 126/61; PULSE 74; TEMP 36.4; O2SAT 91
[2016-07-18 07:56] LABS: HEMATOCRIT 27.7 % (37-47); MEAN CELL VOLUME 80.1 fL (80-100); MEAN CORPUSCULAR HEMOGLOBIN 24.9 pg (25-34); MEAN PLATELET VOLUME 9.3 fL (7.4-10.4); PLATELET COUNT 343 K/uL (130-400); RED BLOOD COUNT 3.46 M/uL (4.2-5.4); WHITE BLOOD COUNT 10.63 K/uL (4.8-10.8)
[2016-07-18 08:15] LABS: BUN/CREATININE RATIO 19.1 (10-20); CALCIUM 8.6 mg/dl (8.5-10.1); CREATININE 1.8 mg/dl (0.60-1.20); POTASSIUM 4.4 mmol/L (3.5-5.1)
[2016-07-18] MEDS: SPIRONOLACTONE 100 MG TAB PO SCH (08:55)
[2016-07-18] MEDS: VENLAFAXINE HCL 50 MG TAB PO SCH (08:55)
[2016-07-18] MEDS: RIFAXIMIN TAB 550 MG TAB PO SCH ×2 (08:55→20:58)
[2016-07-18] MEDS: METOPROLOL SUCC 25MG EXT REL TAB PO SCH ×2 (08:56→20:57)
[2016-07-18] MEDS: POLYETHYLENE (MIRALAX) 17 GM PACK PO SCH (08:56)
[2016-07-18] MEDS: DOCUSATE SODIUM 100 MG CAP PO SCH ×2 (08:56→20:53)
[2016-07-18] MEDS: TRIAMCINOLONE ACET 0.1% CR 15 GM TUBE EXT SCH ×2 (08:57→20:54)
[2016-07-18] MEDS: INSULIN ASPART 100 UNITS/ML 3 ML PEN SC SCH ×4 (09:01→21:07)
[2016-07-18] MEDS: INSULIN GLARGINE SOLOSTAR 100 UNITS/ML 3 ML PEN SC SCH ×2 (09:02→21:06)
[2016-07-18] MEDS: ALBUTEROL HFA 8 GM INHALER INH PRN ×2 (09:05→12:41)
[2016-07-18] MEDS ORDERED: INSULIN GLARGINE SOLOSTAR 100 UNITS/ML 3 ML PEN SC ONE (11:30)
--- NOTE | 2016-07-18 11:30 | Pharmacy Progress Note ---
Glycemic Control: Progress Nt Date of Service Jul 18, 2016. Scope Glycemic Pharmacist consulted by Dr Rosenthal on 07/14/16 for glycemic control and to write orders per [facility] inpatient glycemic control protocol. Objective Accuchecks BSG (last 24hrs): Test 07/17/16 12:22 07/17/16 17:13 07/17/16 20:35 07/18/16 07:22 Bedside Glucose 120 mg/dl (70-90) 176 mg/dl (70-90) 175 mg/dl (70-90) 113 mg/dl (70-90) Test 07/18/16 07:27 07/18/16 07:46 07/18/16 10:33 Bedside Glucose 157 mg/dl (70-90) 306 mg/dl (70-90) Random Glucose 167 mg/dl (70-99) Laboratory Data (last 24hrs) Test 07/18/16 07:46 Anion Gap 5.0 mmol/L BUN/Creatinine Ratio 19.1 Blood Urea Nitrogen 34 mg/dl Creatinine 1.80 mg/dl Potassium Level 4.4 mmol/L Sodium Level 136 mmol/L White Blood Count 10.63 K/uL HbA1c: Test 07/15/16 06:37 Hemoglobin A1c 6.8 % (4.5-5.6) H Recent Pertinent Medications Outpatient Anti-diabetic Regimen: * Lantus 45 units SQ BID * NovoLog 30 units with Breakfast & lunch, 20 units with dinner The patient is currently ordered/receiving: * Basal insulin: Lantus 18 units BID * Correctional Insulin: Novolog Correction per scale ACHS Goal Range: Low 110 mg/dL - High 140 mg/dL Correction Factor: 20 mg/dL/unit * Prandial insulin: Per carb ratio of 1 unit per 7 grams CHO consumed Risk Factors for Insulin Resistance: * IVF: Protonix drip mixed in dextrose * Diet: AHA/type 2 diabetes Assessment & Plan ASSESSMENT: 07/16/16 * 75yo T2DM female known to pharmacy from previous admissions/glycemic consults - most recently 05/2016 admission * Pt typically requires less insulin while admitted as compared to outpatient dosing (when only on minimal steroids/stressors), total daily doses for this scenario ranges 60-80 units/day. However, Pt can require 160+ units/day while on moderate dose prednisone daily * Pt currently admitted with GI bleed, symptomatic anemia and will be ordered reduced diet of clear liquids and then NPO Sunday evening prior to EGD Sunday * Anticipating insulin regimen will need significantly reduced as compared to previous admission d/t: no steroids, reduced diet, no infection. Started SQ basal bolus insulin regimen based on weight and minimal stress. Increased basal insulin doses given for BSG > 180mg/dl. * Pt may need reduced insulin dosing Sunday prior to EGD d/t NPO status * ADA & AACE recommend a goal blood sugar range 140-180 mg/dl for the majority of critically ill & non-critically ill patients. However, more stringent targets may be selected in individual cases. Will utilize more stringent goal of 110-140mg/dl based on patient age, comorbidities, and tight glycemic control as an outpatient. Will keep the "low" end of the goal range slightly elevated to help prevent hypo. * Patient is currently receiving an average of 50 units of insulin per day with sub-optimal control * 27 units of basal insulin --> AM fasting BSG is elevated, basal insulin needs increased * 20 units of prandial/correctional insulin --> Post-prandial BSGs are elevated /BSGs rise throughout the day, CF/CR needs tightened * BSGs ranging 110-232 over the past 24hrs * Insulin regimen will need adjusted for the next 24hrs d/t : * NPO after midnight --> will decrease basal insulin dosing tomorrow for NPO * Pt is receiving Lantus dosing based on BSG --> will order a set dose based on estimated total daily dose of ~ 60-70 units/day 07/17/16 * Ms. Coy received 60 units of insulin yesterday with BSGs ranging from 139- 254 mg/dL in the past 24 hours * She will receive 9 units of Lantus this AM based upon BSG since she is NPO for EGD this AM * Fasting is improved this AM so basal dose of 18 units BID seems appropriate - will plan to continue this after AM dose today * CF/CR just tightened last night so it's not clear yet if this is appropriate - will plan to continue for now * Noted that the patient may be d/c'd home in 1-2 days - please see d/c recs below 07/18/16 * Ms. Coy rec'd 45 units of insulin yesterday with BSGs under great control * I rec'd a call from the nurse this AM as she was unsure how much Lantus and Novolog the pt really rec'd d/t leaking of both at the inj site. Recheck of 306 mg/dL at 1030 indicates she most likely did not receive the full doses * Since BSGs have been great, will only do a one time extra dose of Lantus (~30 % of this AM's dose) and have the nurse cover with the ordered CF/CR * Will also order an overnight accucheck in case she continues to run high PLAN FOR INPATIENT GLYCEMIC CONTROL: * Continue Lantus 18 units BID * Give addl 5 units x 1 now to make up for "leaked" dose this AM * Continue Novolog ACHS, add 0200 accucheck * Goal 110-140 mg/dL * CF 20 mg/dL/unit * CR 1 unit per 7 gm CHO consumed RECOMMENDATIONS FOR DISCHARGE: * A1c indicates good control * Resume outpatient regimen upon discharge Thank you.
--- NOTE | 2016-07-18 11:42 | Gastroenterology Progress Note ---
Progress Note Date of Service: Jul 18, 2016 Subjective Pt evaluation today including: conversation w/ patient, physical exam, chart review, lab review Pt was seen and examined this morning. She has no complaints other than her nose being dry and that she is still SOB. She is wearing O2 without any humidification. She had a BM this morning and a BM last night. These were brown. No black stools. No BRBPR. No red cast to her stools. Denies any fever, chills, chest pain, SOB, abdominal pain, nausea, vomiting. Her BUN is 34 and ladderman 1.8 this morning. H&H 8.6 after three units EGD 07/17/16: Grade I, small (< 5 mm) esophageal varices. Normal stomach. Normal examined duodenum. No specimens collected. No source of bleeding identified Review of Systems Constitutional: No chills, No fever Respiratory: + shortness of breath (persistent, but slightly resolved with blood transfusion and inhalers this AM), No cough Cardiac: No chest pain, No edema Abdomen: No GI bleeding, No constipation, No diarrhea, No nausea, No pain, No vomiting Medications Current Inpatient Medications Medications (Trade) Dose Ordered Sig/Virgil Route Start Time Stop Time Status Last Admin Dose Admin Polyethylene (Miralax Powder Packet) 17 gm DAILY PO 07/15/16 09:00 08/14/16 08:59 07/18/16 08:56 17 GM Insulin Aspart (novoLOG ASPART) SLIDING SCALE If C... ACHS SC 07/14/16 16:15 08/13/16 16:14 07/18/16 09:01 8 UNITS Glucose (Glucose 40% Gel) 15-30 GRAMS 15 GRAMS... UD PRN PO 07/14/16 15:15 08/13/16 15:14 Glucose (Glucose Chew Tab) 4-8 Tablets 4 Tabl... UD PRN PO 07/14/16 15:15 08/13/16 15:14 Dextrose (Dextrose 50% 50ML Syringe) 25-50ML OF 50% DW IV FOR... UD PRN IV 07/14/16 15:15 08/13/16 15:14 Glucagon (Glucagon Inj) 1 mg UD PRN SQ 07/14/16 15:15 08/13/16 15:14 Miscellaneous Information (Consult Glycemic Management Pharmacy) 1 ea UD PRN N/A 07/14/16 15:58 08/13/16 15:57 Atorvastatin Calcium (Lipitor Tab) 80 mg QPM PO 07/14/16 21:00 08/13/16 20:59 07/17/16 20:48 80 MG Docusate Sodium (coLACE CAP) 100 mg BID PO 07/14/16 21:00 08/13/16 20:59 07/18/16 08:56 100 MG Latanoprost (Xalatan Oph Soln) 1 drops HS OPB 07/14/16 21:00 08/13/16 20:59 07/17/16 20:46 1 DROPS Levothyroxine Sodium (Synthroid Tab) 112 mcg DAILYBB PO 07/15/16 06:00 08/14/16 06:59 07/18/16 06:04 112 MCG Metoprolol Succinate (Toprol Xl Tab) 25 mg BID PO 07/14/16 21:00 08/13/16 20:59 07/18/16 08:56 25 MG Rifaximin (Xifaxan Tab) 550 mg BID PO 07/14/16 21:00 08/13/16 20:59 07/18/16 08:55 550 MG Triamcinolone Acetonide (Kenalog 0.1% Cream) 1 appln BID EXT 07/14/16 21:00 08/13/16 20:59 07/18/16 08:57 1 APPLN Venlafaxine HCl (effeXOR TAB) 100 mg DAILY PO 07/15/16 09:00 08/14/16 08:59 07/18/16 08:55 100 MG Albuterol 2 puffs 2 puffs Q4 PRN INH 07/14/16 16:00 08/13/16 15:59 07/18/16 09:05 2 PUFFS Pantoprazole Sodium/Dextrose (Protonix Inj/D5 100ml) 100 ml @ 20 mls/hr Q5H IV 07/14/16 17:15 08/13/16 17:14 07/18/16 11:03 20 MLS/HR Spironolactone (Aldactone Tab) 100 mg QAM PO 07/16/16 09:00 08/15/16 08:59 07/18/16 08:55 100 MG Insulin Glargine 18 unit 18 unit BID SC 07/16/16 09:00 08/15/16 08:59 Future hold 07/18/16 09:02 18 UNIT Furosemide/Syringe (Lasix Inj/ Syringe) 2 ml @ 4 mls/min BID17 IV 07/16/16 17:00 08/15/16 16:59 Future Hold 07/16/16 17:23 4 MLS/MIN Bisacodyl (Dulcolax Tab) 10 mg BID PRN PO 07/17/16 09:00 08/16/16 08:59 Insulin Aspart (novoLOG ASPART) SLIDING SCALE If C... 0200 ONCE SC 07/19/16 02:00 07/19/16 02:01 Objective Vital Signs Date Time Temp Pulse Resp B/P Pulse Ox O2 Delivery O2 Flow Rate FiO2 07/18/16 08:21 Nasal Cannula 2.0 07/18/16 07:44 36.4 74 18 126/61 91 Nasal Cannula 2.0 07/18/16 01:26 36.7 80 22 146/66 89 Nasal Cannula 2.0 80 07/18/16 00:00 93 Nasal Cannula 2.0 07/17/16 20:46 78 118/62 93 Nasal Cannula 2.0 07/17/16 20:00 Nasal Cannula 2.0 07/17/16 16:00 93 Nasal Cannula 2.0 07/17/16 15:02 36.4 74 16 124/55 93 Nasal Cannula 2.0 07/17/16 11:41 36.6 82 18 121/52 90 Nasal Cannula 2.0 Physical Exam General Appearance: no apparent distress Eyes: PERRL ENT: hearing grossly normal Neck: supple Respiratory/Chest: lungs clear, no respiratory distress, no accessory muscle use, + decreased breath sounds (diminshed), + pertinent finding (O2 is on) Cardiovascular: regular rate, rhythm, no edema, no gallop, no JVD Abdomen: normal bowel sounds, non tender, soft, no organomegaly, no pulsatile mass Neurologic/Psych: alert, normal mood/affect, oriented x 3 Skin: normal color, no jaundice Laboratory Results Last 24 Hours Test 07/17/16 12:22 07/17/16 17:13 07/17/16 20:35 07/18/16 07:22 Bedside Glucose 120 mg/dl 176 mg/dl 175 mg/dl 113 mg/dl Test 07/18/16 07:27 07/18/16 07:45 07/18/16 07:46 07/18/16 10:33 Bedside Glucose 157 mg/dl 306 mg/dl Ammonia 71.0 umol/L White Blood Count 10.63 K/uL Red Blood Count 3.46 M/uL Hemoglobin 8.6 g/dL Hematocrit 27.7 % Mean Corpuscular Volume 80.1 fL Mean Corpuscular Hemoglobin 24.9 pg Mean Corpuscular Hemoglobin Concent 31.0 g/dl RDW Standard Deviation 49.7 fL RDW Coefficient of Variation 17.3 % Platelet Count 343 K/uL Mean Platelet Volume 9.3 fL Sodium Level 136 mmol/L Potassium Level 4.4 mmol/L Chloride Level 98 mmol/L Carbon Dioxide Level 33 mmol/L Anion Gap 5.0 mmol/L Blood Urea Nitrogen 34 mg/dl Creatinine 1.80 mg/dl Est Creatinine Clear Calc Drug Dose 32.7 ml/min Estimated GFR () 31.8 Estimated GFR (Non- 27.4 BUN/Creatinine Ratio 19.1 Random Glucose 167 mg/dl Calcium Level 8.6 mg/dl Assessment and Plan Patient is a 75 year old female with GRAHAM cirrhosis and symptotic anemia with guaiac positive stool. HGB on arrival was 6. Suggested to optimize patient respiratory and transfuse prior to EGD evaluation. EGD was completed on 07/17/16 without any source of GI bleed identified. Given history of AVMs, colonoscopy can be arranged as an outpatient. Plan Diet as tolerated Trend H&H Transfuse as needed Monitor stools continue PPI Outpatient colonoscopy? Patient is not agreeable to completing soon because needs to be home and healthy as her is getting an amputation. I have seen, examined and agree with the plan as outlined by JULIO C Mcknight as above. -exam reveals soft abd -no bleeding, F/U with Dr. sadler
[2016-07-18 13:22] VITALS: Ht 167.6 cm; Wt 96.9 kg
[2016-07-18 15:09] VITALS: BP 129/63; PULSE 77; TEMP 36.6; O2SAT 93
--- NOTE | 2016-07-18 18:51 | Progress Note ---
Internal Med Progress Note Date of Service: Jul 18, 2016. Provider Documentation: SUBJECTIVE: Patient is seen and examined at bedside. States feeling well. Denies any chest pain, SOB. No bleeding per rectum. Had BM today. Offers no complaints. OBJECTIVE: Vital Signs-as noted below Physical Exam: General Appearance:Moderately built and nourished, no apparent distress Head: normocephalic, Atraumatic Eyes: normal inspection, EOMI, PERRLA Neck: supple, Trachea midline Respiratory/Chest: Decreased breath sounds, CTA Cardiovascular: S1, S2, + murmur Abdomen/GI:Soft, Non tender, Bowel sounds present, protuberant Extremities/Musculoskelatal: + Chronic venous stasis changes. trace edema Neurologic/Psych:AAOX3, grossly no focal neurological deficits Skin: normal color, warm Lab data as noted below. ASSESSMENT & PLAN: SYMPTOMATIC ACUTE ON CHRONIC ANEMIA, Likely secondary to blood loss Patient presented with worsening SOB, lightheadedness, generalized weakness Hb 6.0 on presentation; Rectal exam guaiac positive S/P EGD on 07/17/16: Grade I, small (< 5 mm) esophageal varices. No source of bleeding identified Continue Protonix ggt S/P 3 units of PRBCs : Hb is 8.6 today Appreciate GI input Possible colonoscopy as outpatient Monitor Hb, transfuse PRN GRAHAM CIRRHOSIS with ASCITES: Abdominal US shows Low volume ascites which is increased when compared the prior June 01 study S/p paracentesis 05/29/16 (last admission)- 100cc chylous appearing fluid, WBC < 500, culture- no growth S/P IV Lasix 40 mg BID, currently on hold secondary to NESTOR Continue Aldactone Will plan to resume to home lasix dose when Cr levels better CHRONIC HYPOXIC RESPIRATORY FAILURE Chronic oxygen dependency: 1L at rest and 2L with activity Multifactorial: COPD, Chronic Bilateral pleural effusions, 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 If worsens, may consider thoracentesis for right pleural effusion (0.5-1 L), but would avoid left thoracentesis as chronic, loculated, chylous effusion and was complicated by small pneumothorax last admission. H/O HEPATIC ENCEPHALOPATHY Mental status normal- AAOX3 as at baseline No issues this admission Ammonia level: 63>>> 71 Continue Rifaximin 550 mg BID, Dulcolax 10 mg BID PRN, Colace 100 mg PO BID, Miralax 17 gram daily. Unable to tolerate lactulose in past Needs to maintain 2-3 BMs daily. HYPOKALEMIA Replaced and monitor NESTOR ON CKD STAGE IV Baseline Cr 1.1-1.3 Cr": 1.8 today Monitor renal function while off on IV diuretic DM II Uncontrolled Last A1c: 9.9 02/2016 El[place] , GRICEL HYPOTHYROIDISM: Continue Levothyroxine PAROXYSMAL AFIB currently in NSR; rate controlled Continue Beta moises Not on anticoagulated due to anemia/GI bleeding DVT PX SCDs due to hx varices, anemia, GI bleeding CODE STATUS Full code DISPOSITION: PT/OT ordered Expected discharge home when stable. Vital Signs: Date Time Temp Pulse Resp B/P Pulse Ox O2 Delivery O2 Flow Rate FiO2 07/18/16 17:04 Nasal Cannula 2.0 07/18/16 15:09 36.6 77 20 129/63 93 Nasal Cannula 2.0 07/18/16 08:21 Nasal Cannula 2.0 07/18/16 07:44 36.4 74 18 126/61 91 Nasal Cannula 2.0 07/18/16 01:26 36.7 80 22 146/66 89 Nasal Cannula 2.0 80 07/18/16 00:00 93 Nasal Cannula 2.0 07/17/16 20:46 78 118/62 93 Nasal Cannula 2.0 Lab Results: Results Past 24 Hours Test 07/17/16 20:35 07/18/16 07:22 07/18/16 07:27 07/18/16 07:45 Range/Units Bedside Glucose 175 113 157 70-90 mg/dl Ammonia 71.0 11-32 umol/L Test 07/18/16 07:46 07/18/16 10:33 07/18/16 12:27 07/18/16 16:42 Range/Units White Blood Count 10.63 4.8-10.8 K/uL Red Blood Count 3.46 4.2-5.4 M/uL Hemoglobin 8.6 12.0-16.0 g/dL Hematocrit 27.7 37-47 % Mean Corpuscular Volume 80.1 80-100 fL Mean Corpuscular Hemoglobin 24.9 25-34 pg Mean Corpuscular Hemoglobin Concent 31.0 32-36 g/dl RDW Standard Deviation 49.7 36.4-46.3 fL RDW Coefficient of Variation 17.3 11.5-14.5 % Platelet Count 343 130-400 K/uL Mean Platelet Volume 9.3 7.4-10.4 fL Sodium Level 136 136-145 mmol/L Potassium Level 4.4 3.5-5.1 mmol/L Chloride Level 98 98-107 mmol/L Carbon Dioxide Level 33 21-32 mmol/L Anion Gap 5.0 3-11 mmol/L Blood Urea Nitrogen 34 7-18 mg/dl Creatinine 1.80 0.60-1.20 mg/dl Est Creatinine Clear Calc Drug Dose 32.7 ml/min Estimated GFR () 31.8 Estimated GFR (Non- 27.4 BUN/Creatinine Ratio 19.1 10-20 Random Glucose 167 70-99 mg/dl Calcium Level 8.6 8.5-10.1 mg/dl Bedside Glucose 306 232 193 70-90 mg/dl
[2016-07-18] MEDS: ATORVASTATIN 20 MG TAB PO SCH (20:54)
[2016-07-18] MEDS: LATANOPROST 0.005% OP SOLN 2.5 ML BTL OPB SCH (20:55)
[2016-07-18 20:56] VITALS: BP 147/56; PULSE 85
[2016-07-18 23:42] VITALS: BP 147/61; PULSE 83; TEMP 36.7; O2SAT 93
[2016-07-19] MEDS ORDERED: INSULIN ASPART 100 UNITS/ML 3 ML PEN SC ONE (02:00)
[2016-07-19] MEDS: PANTOprazole INJ 40 MG in DEXTROSE 5% 100ML IV SCH ×2 (02:15→09:33)
[2016-07-19] MEDS: LEVOTHYROXINE 112 MCG TAB PO SCH (05:36)
[2016-07-19 07:04] VITALS: BP 125/57; PULSE 80; TEMP 36.6; O2SAT 96
[2016-07-19 07:35] LABS: HEMATOCRIT 28.5 % (37-47)
[2016-07-19 07:53] LABS: BUN/CREATININE RATIO 18.1 (10-20); CALCIUM 8.7 mg/dl (8.5-10.1); CREATININE 1.7 mg/dl (0.60-1.20); POTASSIUM 4.3 mmol/L (3.5-5.1)
[2016-07-19] MEDS: TRIAMCINOLONE ACET 0.1% CR 15 GM TUBE EXT SCH ×2 (08:00→20:50)
[2016-07-19] MEDS: SPIRONOLACTONE 100 MG TAB PO SCH (09:22)
[2016-07-19] MEDS: METOPROLOL SUCC 25MG EXT REL TAB PO SCH ×2 (09:22→20:50)
[2016-07-19] MEDS: DOCUSATE SODIUM 100 MG CAP PO SCH ×2 (09:22→20:50)
[2016-07-19] MEDS: VENLAFAXINE HCL 50 MG TAB PO SCH (09:22)
[2016-07-19] MEDS: ALBUTEROL HFA 8 GM INHALER INH PRN (09:23)
[2016-07-19] MEDS: RIFAXIMIN TAB 550 MG TAB PO SCH ×2 (09:23→20:49)
[2016-07-19] MEDS: POLYETHYLENE (MIRALAX) 17 GM PACK PO SCH (09:23)
[2016-07-19] MEDS: INSULIN GLARGINE SOLOSTAR 100 UNITS/ML 3 ML PEN SC SCH ×2 (09:34→20:55)
[2016-07-19] MEDS: INSULIN ASPART 100 UNITS/ML 3 ML PEN SC SCH ×4 (09:36→20:53)
[2016-07-19 11:19] VITALS: O2SAT 94
--- NOTE | 2016-07-19 14:57 | Pharmacy Progress Note ---
Glycemic Control: Progress Nt Date of Service Jul 19, 2016. Scope Glycemic Pharmacist consulted by Dr Alysa Rosenthal on 07/14/2016 for glycemic control and to write orders per [facility] inpatient glycemic control protocol. Objective Accuchecks BSG (last 24hrs): Test 07/18/16 16:42 07/18/16 20:31 07/19/16 02:06 07/19/16 06:45 Bedside Glucose 193 mg/dl (70-90) 247 mg/dl (70-90) 199 mg/dl (70-90) Random Glucose 153 mg/dl (70-99) Test 07/19/16 07:12 07/19/16 11:23 Bedside Glucose 142 mg/dl (70-90) 205 mg/dl (70-90) Laboratory Data (last 24hrs) Test 07/19/16 06:45 Anion Gap 5.0 mmol/L BUN/Creatinine Ratio 18.1 Blood Urea Nitrogen 31 mg/dl Creatinine 1.70 mg/dl Potassium Level 4.3 mmol/L Sodium Level 137 mmol/L HbA1c: Test 07/15/16 06:37 Hemoglobin A1c 6.8 % (4.5-5.6) H Recent Pertinent Medications Outpatient Anti-diabetic Regimen: * Lantus 45 units BID plus Novolog 30 units with breakfast and lunch and 20 units before dinner The patient is currently receiving: * Basal insulin: Lantus 18 units every 12 hours * Correctional Insulin: Novolog Correction per scale ACHS Goal Range: Low 110 mg/dL - High 140 mg/dL Correction Factor: 20 mg/dL/unit * Prandial insulin: Per carb ratio of 1 unit per 7 grams CHO consumed Risk Factors for Insulin Resistance: * IVF: Protonix gtt that was d/c'ed on 07/19/2016 Assessment & Plan ASSESSMENT: * ADA & AACE recommend a goal blood sugar range 140-180 mg/dl for the majority of critically ill & non-critically ill patients. However, more stringent targets may be selected in individual cases. 07/16/16 * 75yo T2DM female known to pharmacy from previous admissions/glycemic consults - most recently 05/2016 admission * Pt typically requires less insulin while admitted as compared to outpatient dosing (when only on minimal steroids/stressors), total daily doses for this scenario ranges 60-80 units/day. However, Pt can require 160+ units/day while on moderate dose prednisone daily * Pt currently admitted with GI bleed, symptomatic anemia and will be ordered reduced diet of clear liquids and then NPO Sunday evening prior to EGD Sunday * Anticipating insulin regimen will need significantly reduced as compared to previous admission d/t: no steroids, reduced diet, no infection. Started SQ basal bolus insulin regimen based on weight and minimal stress. Increased basal insulin doses given for BSG > 180mg/dl. * Pt may need reduced insulin dosing Sunday AM prior to EGD d/t NPO status * ADA & AACE recommend a goal blood sugar range 140-180 mg/dl for the majority of critically ill & non-critically ill patients. However, more stringent targets may be selected in individual cases. Will utilize more stringent goal of 110-140mg/dl based on patient age, comorbidities, and tight glycemic control as an outpatient. Will keep the "low" end of the goal range slightly elevated to help prevent hypo. * Patient is currently receiving an average of 50 units of insulin per day with sub-optimal control * 27 units of basal insulin --> AM fasting BSG is elevated, basal insulin needs increased * 20 units of prandial/correctional insulin --> Post-prandial BSGs are elevated /BSGs rise throughout the day, CF/CR needs tightened * BSGs ranging 110-232 over the past 24hrs * Insulin regimen will need adjusted for the next 24hrs d/t : * NPO after midnight --> will decrease basal insulin dosing tomorrow for NPO * Pt is receiving Lantus dosing based on BSG --> will order a set dose based on estimated total daily dose of ~ 60-70 units/day 07/17/16 * Ms. Coy received 60 units of insulin yesterday with BSGs ranging from 139- 254 mg/dL in the past 24 hours * She will receive 9 units of Lantus this AM based upon BSG since she is NPO for EGD this AM * Fasting is improved this AM so basal dose of 18 units BID seems appropriate - will plan to continue this after AM dose today * CF/CR just tightened last night so it's not clear yet if this is appropriate - will plan to continue for now * Noted that the patient may be d/c'd home in 1-2 days - please see d/c recs below 07/18/16 * Ms. Coy rec'd 45 units of insulin yesterday with BSGs under great control * I rec'd a call from the nurse this AM as she was unsure how much Lantus and Novolog the pt really rec'd d/t leaking of both at the inj site. Recheck of 306 mg/dL at 1030 indicates she most likely did not receive the full doses * Since BSGs have been great, will only do a one time extra dose of Lantus (~30 % of this AM's dose) and have the nurse cover with the ordered CF/CR * Will also order an overnight accucheck in case she continues to run high 07/19/2016 * Overnight Ms Coy was 199 mg/dL and then 142 mg/dL this morning. She received a total of 3 units of Novolog overnight. I believe that there is still some residual high blood sugars from the issues from 07/18/2016. * Since the Protonix gtt (which provides a continuous infusion of dextrose) was discontinued today, I believe it is reasonable to continue the current regimen. I believe that with this discontinued the BSGs should improve. PLAN FOR INPATIENT GLYCEMIC CONTROL: * Continuing Lantus 18 units SQ BID * Continuing correction factor of 20 mg/dl/unit * Continuing carb ratio of 1 unit per 7 grams CHO consumed * Continuing goal range of Low 110 mg/dL - High 140 mg/dL RECOMMENDATIONS FOR DISCHARGE: * A1c indicates good control * Resume outpatient regimen upon discharge Thank you.
[2016-07-19 15:13] VITALS: BP 148/69; PULSE 80; TEMP 36.6; O2SAT 91
--- NOTE | 2016-07-19 16:17 | Progress Note ---
Internal Med Progress Note Date of Service: Jul 19, 2016. Provider Documentation: SUBJECTIVE: Patient is seen and examined at bedside. Denies any chest pain, SOB. Offers no complaints. Eager to get discharged. States has been improving every day. OBJECTIVE: Vital Signs-as noted below Physical Exam: General Appearance:Moderately built and nourished, no apparent distress Head: normocephalic, Atraumatic Eyes: normal inspection, EOMI, PERRLA Neck: supple, Trachea midline Respiratory/Chest: Decreased breath sounds, CTA Cardiovascular: S1, S2, + murmur Abdomen/GI:Soft, Non tender, Bowel sounds present, protuberant Extremities/Musculoskelatal: + Chronic venous stasis changes. trace edema Neurologic/Psych:AAOX3, grossly no focal neurological deficits Skin: normal color, warm Lab data as noted below. ASSESSMENT & PLAN: SYMPTOMATIC ACUTE ON CHRONIC ANEMIA, Likely secondary to blood loss Patient presented with worsening SOB, lightheadedness, generalized weakness Hb 6.0 on presentation; Rectal exam guaiac positive S/P EGD on 07/17/16: Grade I, small (< 5 mm) esophageal varices. No source of bleeding identified S/P Protonix ggt Continue PPI BID S/P 3 units of PRBCs : Hb is 8.8 today Appreciate GI input No plan for colonoscopy per GI: Discussed on 07/19/16 Monitor Hb, transfuse PRN GRAHAM CIRRHOSIS with ASCITES: Abdominal US shows Low volume ascites which is increased when compared the prior June 01 study S/p paracentesis 05/29/16 (last admission)- 100cc chylous appearing fluid, WBC < 500, culture- no growth S/P IV Lasix 40 mg BID, currently on hold secondary to NESTOR Continue Aldactone Will plan to resume to home lasix dose when Cr levels better CHRONIC HYPOXIC RESPIRATORY FAILURE Chronic oxygen dependency: 1L at rest and 2L with activity Multifactorial: COPD, Chronic Bilateral pleural effusions, 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 If worsens, may consider thoracentesis for right pleural effusion (0.5-1 L), but would avoid left thoracentesis as chronic, loculated, chylous effusion and was complicated by small pneumothorax last admission. H/O HEPATIC ENCEPHALOPATHY Mental status normal- AAOX3 as at baseline No issues this admission Ammonia level: 63>>> 71 Continue Rifaximin 550 mg BID, Dulcolax 10 mg BID PRN, Colace 100 mg PO BID, Miralax 17 gram daily. Unable to tolerate lactulose in past Needs to maintain 2-3 BMs daily. HYPOKALEMIA Resolved NESTOR ON CKD STAGE IV Baseline Cr 1.1-1.3 Slowly improving Cr: 1.7 today Monitor renal function while off on IV diuretic DM II Uncontrolled Last A1c: 9.9 02/2016 [place] , GRICEL HYPOTHYROIDISM: Continue Levothyroxine PAROXYSMAL AFIB currently in NSR; rate controlled Continue Beta moises Not on anticoagulated due to anemia/GI bleeding DVT PX SCDs due to hx varices, anemia, GI bleeding CODE STATUS Full code DISPOSITION: PT/OT ordered Expected discharge home when stable Vital Signs: Date Time Temp Pulse Resp B/P Pulse Ox O2 Delivery O2 Flow Rate FiO2 07/19/16 15:55 Nasal Cannula 2.0 07/19/16 15:13 36.6 80 20 148/69 91 Nasal Cannula 2.0 07/19/16 11:19 94 07/19/16 07:44 Nasal Cannula 2.0 07/19/16 07:04 36.6 80 18 125/57 96 2.0 07/18/16 23:42 36.7 83 20 147/61 93 2.0 07/18/16 23:30 Nasal Cannula 2.0 Humidified Oxygen 07/18/16 20:56 85 147/56 07/18/16 17:04 Nasal Cannula 2.0 Lab Results: Results Past 24 Hours Test 07/18/16 16:42 07/18/16 20:31 07/19/16 02:06 07/19/16 06:45 Range/Units Bedside Glucose 193 247 199 70-90 mg/dl Hemoglobin 8.8 12.0-16.0 g/dL Hematocrit 28.5 37-47 % Sodium Level 137 136-145 mmol/L Potassium Level 4.3 3.5-5.1 mmol/L Chloride Level 99 98-107 mmol/L Carbon Dioxide Level 33 21-32 mmol/L Anion Gap 5.0 3-11 mmol/L Blood Urea Nitrogen 31 7-18 mg/dl Creatinine 1.70 0.60-1.20 mg/dl Est Creatinine Clear Calc Drug Dose 34.6 ml/min Estimated GFR () 34.1 Estimated GFR (Non- 29.4 BUN/Creatinine Ratio 18.1 10-20 Random Glucose 153 70-99 mg/dl Calcium Level 8.7 8.5-10.1 mg/dl Test 07/19/16 07:12 07/19/16 11:23 Range/Units Bedside Glucose 142 205 70-90 mg/dl
[2016-07-19] MEDS: ATORVASTATIN 20 MG TAB PO SCH (20:49)
[2016-07-19] MEDS: LATANOPROST 0.005% OP SOLN 2.5 ML BTL OPB SCH (20:50)
[2016-07-19] MEDS: PANTOprazole SOD 40 MG TAB PO SCH (20:50)
[2016-07-19 23:26] VITALS: BP 132/63; PULSE 82; TEMP 36.8; O2SAT 94
[2016-07-20 07:42] LABS: HEMATOCRIT 28.1 % (37-47)
[2016-07-20 07:45] VITALS: BP 146/84; PULSE 86; TEMP 36.5; O2SAT 91
[2016-07-20] MEDS: TRIAMCINOLONE ACET 0.1% CR 15 GM TUBE EXT SCH (08:00)
[2016-07-20 08:12] VITALS: O2SAT 91
[2016-07-20] MEDS: SPIRONOLACTONE 100 MG TAB PO SCH (08:32)
[2016-07-20] MEDS: VENLAFAXINE HCL 50 MG TAB PO SCH (08:32)
[2016-07-20] MEDS: RIFAXIMIN TAB 550 MG TAB PO SCH (08:32)
[2016-07-20] MEDS: DOCUSATE SODIUM 100 MG CAP PO SCH (08:33)
[2016-07-20] MEDS: PANTOprazole SOD 40 MG TAB PO SCH (08:33)
[2016-07-20] MEDS: POLYETHYLENE (MIRALAX) 17 GM PACK PO SCH (08:33)
[2016-07-20] MEDS: METOPROLOL SUCC 25MG EXT REL TAB PO SCH (08:33)
[2016-07-20] MEDS: ALBUTEROL HFA 8 GM INHALER INH PRN (08:37)
[2016-07-20] MEDS: INSULIN GLARGINE SOLOSTAR 100 UNITS/ML 3 ML PEN SC SCH (08:47)
[2016-07-20] MEDS: INSULIN ASPART 100 UNITS/ML 3 ML PEN SC SCH ×2 (08:47→12:28)
[2016-07-20 08:53] LABS: BUN/CREATININE RATIO 18.8 (10-20); CREATININE 1.6 mg/dl (0.60-1.20); POTASSIUM 4.8 mmol/L (3.5-5.1)
[2016-07-20 09:02] LABS: CALCIUM 9.1 mg/dl (8.5-10.1)
[2016-07-20] MEDS: LEVOTHYROXINE 112 MCG TAB PO SCH (10:19)
--- NOTE | 2016-07-20 12:49 | Pharmacy Progress Note ---
Glycemic: Assessment & Plan Date of Service Jul 20, 2016. Assessment & Plan The patient is currently receiving 70 units of insulin per day. BSGs ranging 154 - 220 mg/dl over the past 24hrs. * Basal insulin: Lantus 18 units every 12 hours * Correctional Insulin: Novolog Correction per scale ACHS Goal Range: Low 110 mg/dL - High 140 mg/dL Correction Factor: 20 mg/dL/unit * Prandial insulin: Per carb ratio of 1 unit per 7 grams CHO consumed ASSESSMENT: * Fasting BSG remains elevated off the continuous Protonix drip - will plan to increase basal by ~10% * Pre-lunch BSG also consistently elevated but hesitant to adjust CR since remainder of BSGs are improved. In addition, lunch BSGs here tend to be on the higher side due to timing of AM coverage and pre-lunch POC BSG. PLAN: * Increase Lantus to 20 units BID * Continue Novolog ACHS * Goal 110-140 * CF 20 * CR 7 Pharmacy will continue to monitor patient daily and write orders per [facility] inpatient glycemic control protocol. Thanks. * Please note that the plan above was derived based on current level of insulin resistance and hospital stress. These recommendations are appropriate for inpatient admission only. Plan of care upon discharge will need to be reassessed to avoid potential outpatient hypo/hyperglycemia.
--- NOTE | 2016-07-20 14:27 | Progress Note ---
Internal Med Progress Note Date of Service: Jul 20, 2016. Provider Documentation: SUBJECTIVE: Patient is seen and examined at bedside. States feeling much better. Denies any chest pain, SOB. Offers no complaints. Eager to get discharged. OBJECTIVE: Vital Signs-as noted below Physical Exam: General Appearance:Moderately built and nourished, no apparent distress Head: normocephalic, Atraumatic Eyes: normal inspection, EOMI, PERRLA Neck: supple, Trachea midline Respiratory/Chest: Decreased breath sounds, CTA Cardiovascular: S1, S2, + murmur Abdomen/GI:Soft, Non tender, Bowel sounds present, protuberant Extremities/Musculoskelatal: + Chronic venous stasis changes. trace edema Neurologic/Psych:AAOX3, grossly no focal neurological deficits Skin: normal color, warm Lab data as noted below. ASSESSMENT & PLAN: SYMPTOMATIC ACUTE ON CHRONIC ANEMIA, Likely secondary to blood loss Patient presented with worsening SOB, lightheadedness, generalized weakness Hb 6.0 on presentation; Rectal exam guaiac positive S/P EGD on 07/17/16: Grade I, small (< 5 mm) esophageal varices. No source of bleeding identified S/P Protonix ggt Continue PPI BID S/P 3 units of PRBCs : Hb is 8.5 today Appreciate GI input No plan for colonoscopy per GI: Discussed on 07/19/16 Monitor Hb, transfuse PRN Hb is stable GRAHAM CIRRHOSIS with ASCITES: Abdominal US shows Low volume ascites which is increased when compared the prior June 01 study S/p paracentesis 05/29/16 (last admission)- 100cc chylous appearing fluid, WBC < 500, culture- no growth S/P IV Lasix 40 mg BID, currently on hold secondary to NESTOR Continue Aldactone Plan to resume PO lasix today CHRONIC HYPOXIC RESPIRATORY FAILURE Chronic oxygen dependency: 1L at rest and 2L with activity Multifactorial: COPD, Chronic Bilateral pleural effusions, 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 If worsens, may consider thoracentesis for right pleural effusion (0.5-1 L), but would avoid left thoracentesis as chronic, loculated, chylous effusion and was complicated by small pneumothorax last admission. H/O HEPATIC ENCEPHALOPATHY Mental status normal- AAOX3 as at baseline No issues this admission Ammonia level: 63>>> 71 Continue Rifaximin 550 mg BID, Dulcolax 10 mg BID PRN, Colace 100 mg PO BID, Miralax 17 gram daily. Unable to tolerate lactulose in past Needs to maintain 2-3 BMs daily. HYPOKALEMIA Resolved NESTOR ON CKD STAGE IV Baseline Cr 1.1-1.3 Slowly improving Cr: 1.6 today Monitor renal function DM II Uncontrolled Last A1c: 9.9 02/2016 Elton , GRICEL HYPOTHYROIDISM: Continue Levothyroxine PAROXYSMAL AFIB currently in NSR; rate controlled Continue Beta moises Not on anticoagulated due to anemia/GI bleeding DVT PX SCDs due to hx varices, anemia, GI bleeding CODE STATUS Full code DISPOSITION: Plan to discharge home today Follow up on July 25, 2016 at 1:45pm Follow up with your [employer] police coxswain per recommendations from your doctor. Get Basic metabolic panel tested on July 24, 2016 as advised and follow up with your doctor with results for adjustment of furosemide (lasix) dosing. Start taking Furosemide 40mg daily (decreased from twice a day) and you can resume to 40mg twice a day once you kidney function is improved. Vital Signs: Date Time Temp Pulse Resp B/P Pulse Ox O2 Delivery O2 Flow Rate FiO2 07/20/16 08:12 91 Nasal Cannula 2.0 07/20/16 07:45 36.5 86 20 146/84 91 Nasal Cannula 2.0 07/20/16 00:25 Nasal Cannula 2.0 07/19/16 23:26 36.8 82 18 132/63 94 Nasal Cannula 2.0 07/19/16 20:05 Nasal Cannula 2.0 07/19/16 15:55 Nasal Cannula 2.0 07/19/16 15:13 36.6 80 20 148/69 91 Nasal Cannula 2.0 Lab Results: Results Past 24 Hours Test 07/19/16 17:11 07/19/16 20:13 07/20/16 07:03 07/20/16 07:58 Range/Units Bedside Glucose 162 154 162 70-90 mg/dl Hemoglobin 8.5 12.0-16.0 g/dL Hematocrit 28.1 37-47 % Sodium Level 139 136-145 mmol/L Potassium Level 4.8 3.5-5.1 mmol/L Chloride Level 102 98-107 mmol/L Carbon Dioxide Level 31 21-32 mmol/L Anion Gap 6.0 3-11 mmol/L Blood Urea Nitrogen 30 7-18 mg/dl Creatinine 1.60 0.60-1.20 mg/dl Est Creatinine Clear Calc Drug Dose 36.7 ml/min Estimated GFR () 36.7 Estimated GFR (Non- 31.6 BUN/Creatinine Ratio 18.8 10-20 Random Glucose 172 70-99 mg/dl Calcium Level 9.1 8.5-10.1 mg/dl Test 07/20/16 11:20 Range/Units Bedside Glucose 220 70-90 mg/dl
[2016-07-20] MEDS ORDERED: SPRN100 PO (14:35)
[2016-07-20] MEDS ORDERED: PRT40 PO (14:35)
[2016-07-20] MEDS ORDERED: ALBU18002 INH (14:35)
--- NOTE | 2016-07-20 14:39 | Discharge Summary ---
Discharge Summary Date of Service Jul 20, 2016. Discharge Summary Admission Date: Jul 14, 2016 at 15:20 Discharge Date: Jul 20, 2016 Discharge Disposition: Home Principal Diagnosis: Symptomatic Anemia, NESTOR Procedures: CXR: 1. Resolving pulmonary vascular congestion 2. Left basilar opacity, likely representing a combination of pleural fluid and left lower lobe atelectasis/consolidation 3. Suspected trace right pleural effusion ABD USD: Low volume ascites which is increased when compared the prior June 01 study Consultations: GI, Pulmonology Pending Studies/Follow-Up: Follow up on July 25, 2016 at 1:45pm Follow up with your machine taper per recommendations from your doctor. Get Basic metabolic panel tested on July 24, 2016 as advised and follow up with your doctor with results for adjustment of furosemide (lasix) dosing. Start taking Furosemide 40mg daily (decreased from twice a day) and you can resume to 40mg twice a day once you kidney function is improved. Medication Reconciliation New Medications: Pantoprazole (Pantoprazole Sodium) 40 Mg Tab 40 MG PO BID for 30 Days, #60 TAB 1 Refill Polyethylene (Miralax) 17 Gm Pow 17 GM PO DAILY for 30 Days, #30 1 Refill Spironolactone (Spironolactone) 100 Mg Tab 100 MG PO QAM for 30 Days, TAB 1 Refill Continued Medications: Albuterol Sulfate (Proair Respiclick) 108 Mcg/Act Aer 2 PUFFS INH Q4 PRN for Shortness of Breath for 30 Days, #1 1 Refill (This prescription has been renewed) Aspirin (Aspirin EC Low Dose) 81 Mg Ectab 81 MG PO 3XWK Atorvastatin (Lipitor) 80 Mg Tab 80 MG PO QPM, TAB Bisacodyl (Bisacodyl EC) 5 Mg Tabec 5 MG PO BID PRN for constipation for 10 Days Docusate Sodium (Docusate Sodium) 100 Mg Cap 100 MG PO BID for 20 Days, #40 CAP Furosemide (Lasix) 40 Mg Tab 40 MG PO BID Insulin Aspart (Novolog Flexpen) 100 Units/Ml Inj 30 UNITS SC BIDM BEFORE BREAKFAST AND LUNCH Insulin Aspart (Novolog Flexpen) 100 Units/Ml Inj 20 UNITS SC QPM BEFORE SUPPER Insulin Glargine (Lantus) 100 Unit/Ml Inj 45 UNITS SC BID, VIAL Latanoprost (Xalatan 0.005% Oph Cecilia) 0.005 % Cecilia 1 DROPS OPB HS for 90 Days, #7.5 ML 3 Refills Levothyroxine Sodium (Levothyroxine Sodium) 112 Mcg Tab 1 TAB PO QAM for 90 Days, #90 TAB 3 Refills Metoprolol Succ (Toprol Xl) (Toprol-Xl) 25 Mg Tabcr 25 MG PO BID, #30 TAB Rifaximin (Xifaxan) 550 Mg Tab 550 MG PO BID, TAB Triamcinolone Acet (Aristocort 0.1%) 90 Appln/30 Gm Cr 1 APPLN TOP BID Venlafaxine Hcl (Effexor) 100 Mg Tab 100 MG PO DAILY TAKE WITH FOOD. Discontinued Medications: Spironolactone (Aldactone) 50 Mg Tab 50 MG PO QAM, TAB Admission Information HPI (per Admitting provider): This is a 75 year old female with PMH of GRAHAM cirrhosis complicated by portal hypertensive gastropathy, varices, ascites, hepatic encephalopathy, DM type 2, PAF, COPD, and other problems listed below who presents to the ED with worsening SOB. Patient was recently hospitalized at [facility] from May 28- for acute hypoxic respiratory failure multifactorial, left pleural effusion, likely chylous s/p thoracentesis 06/01/16,small pneumothorax post L thoracentesis, R pleural effusion, acute hepatic encephalopathy, NESTOR, mild ascites s/p paracentesis 05/29/16- cx negative. Patient states for past 3 days has worsening SOB with rest and exertion. She is on chronic oxygen 1 liter at rest, 2 liters with exertion, but has increased to 3 liters for past few days. She reports associated generalized weakness and lightheadedness with standing. She reports increasing abdominal girth and weight gain of 13 lb in past 2 weeks. She reports being constipated recently then today was straining then had 2 liquid stool with "reddish cast". Pt also admits to tarry stools x 4 months. States she is chronically cold. She denies fevers, cough, URI symptoms, chest pain, abdominal pain, vomiting, jaundice, change in mental status. Patient's stool was guaiac positive on ER provider's exam. Hg is 6.0. Patient is hemodynamically stable on 3 liters nasal cannula. Prior EGD/ colonoscopy noted in surgical Hx below. On baby ASA 3x per week. Denies NSAID intake. Physical Exam (per Admitting): General Appearance: no apparent distress, + pertinent finding (alert 75 year old female, not in distress) Eyes: normal inspection, PERRL, sclerae normal ENT: hearing grossly normal, pharynx normal Neck: supple, no JVD, trachea midline Respiratory/Chest: no respiratory distress, no accessory muscle use, + decreased breath sounds Cardiovascular: regular rate, rhythm Abdomen/GI: normal bowel sounds, non tender, soft, + pertinent finding ( mildly distended but soft) Extremities/Musculoskelatal: + pertinent finding (trace bilateral lower extremity edema) Neurologic/Psych: alert, normal mood/affect, oriented x 3, + pertinent finding (grossly nonfocal) Skin: + pallor, + pertinent finding (chronic venous stasis changes with erythema of bilateral lower legs) Hospital Course SYMPTOMATIC ACUTE ON CHRONIC ANEMIA, Likely secondary to blood loss Patient presented with worsening SOB, lightheadedness, generalized weakness Hb 6.0 on presentation; Rectal exam guaiac positive S/P EGD on 07/17/16: Grade I, small (< 5 mm) esophageal varices. No source of bleeding identified S/P Protonix ggt Continue PPI BID S/P 3 units of PRBCs : Hb is 8.5 today Appreciate GI input No plan for colonoscopy per GI: Discussed on 07/19/16 Monitor Hb, transfuse PRN Hb is stable GRAHAM CIRRHOSIS with ASCITES: Abdominal US shows Low volume ascites which is increased when compared the prior June 01 study S/p paracentesis 05/29/16 (last admission)- 100cc chylous appearing fluid, WBC < 500, culture- no growth S/P IV Lasix 40 mg BID, currently on hold secondary to NESTOR Continue Aldactone Plan to resume PO lasix today CHRONIC HYPOXIC RESPIRATORY FAILURE Chronic oxygen dependency: 1L at rest and 2L with activity Multifactorial: COPD, Chronic Bilateral pleural effusions, 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 If worsens, may consider thoracentesis for right pleural effusion (0.5-1 L), but would avoid left thoracentesis as chronic, loculated, chylous effusion and was complicated by small pneumothorax last admission. H/O HEPATIC ENCEPHALOPATHY Mental status normal- AAOX3 as at baseline No issues this admission Ammonia level: 63>>> 71 Continue Rifaximin 550 mg BID, Dulcolax 10 mg BID PRN, Colace 100 mg PO BID, Miralax 17 gram daily. Unable to tolerate lactulose in past Needs to maintain 2-3 BMs daily. HYPOKALEMIA Resolved NESTOR ON CKD STAGE IV Baseline Cr 1.1-1.3 Slowly improving Cr: 1.6 today Monitor renal function DM II Uncontrolled Last A1c: 9.9 02/2016 Elton , ISS HYPOTHYROIDISM: Continue Levothyroxine PAROXYSMAL AFIB currently in NSR; rate controlled Continue Beta moises Not on anticoagulated due to anemia/GI bleeding DVT PX SCDs due to hx varices, anemia, GI bleeding CODE STATUS Full code DISPOSITION: Plan to discharge home today Follow up on July 25, 2016 at 1:45pm Follow up with your machine taper per recommendations from your doctor. Get Basic metabolic panel tested on July 24, 2016 as advised and follow up with your doctor with results for adjustment of furosemide (lasix) dosing. Start taking Furosemide 40mg daily (decreased from twice a day) and you can resume to 40mg twice a day once you kidney function is improved. Total time spent on discharge = 35 minutes This includes examination of the patient, discharge planning, medication reconciliation, and communication with other providers. Discharge Instructions Discharge Instructions Date of Service Jul 20, 2016. Admission Reason for Admission: Symptomatic Anemia Discharge Discharge Diagnosis / Problem: Symptomatic Anemia, NESTOR Discharge Goals Goal(s): Decrease discomfort, Improve function Activity Recommendations Activity Limitations: resume your previous activity Exercise/Sports Limitations: as tolerated . Instructions / Follow-Up Instructions / Follow-Up Follow up on July 25, 2016 at 1:45pm Follow up with your machine taper per recommendations from your doctor. Get Basic metabolic panel tested on July 24, 2016 as advised and follow up with your doctor with results for adjustment of furosemide (lasix) dosing. Start taking Furosemide 40mg daily (decreased from twice a day) and you can resume to 40mg twice a day once you kidney function is improved. Current Hospital Diet Patient's current hospital diet: AHA Diet (Heart Healthy), Diabetes Type 2 Diet Discharge Diet Recommended Diet: Diabetes Type 2 Diet Procedures Procedures Performed: EGD Pending Studies Studies pending at discharge: no Laboratory Results Hemoglobin A1c Test 07/15/16 06:37 Range/Units Estimated Average Glucose 148 mg/dl Hemoglobin A1c 6.8 H 4.5-5.6 % Medical Emergencies . Who to Call and When: Medical Emergencies: If at any time you feel your situation is an emergency, please call 911 immediately. . Non-Emergent Contact Non-Emergency issues call your: Primary Care Provider, Photoeng[employer]ving Proofer Call Non-Emergent contact if: you have a fever, your pain is not controlled, your pain is worsening, your pain is unusual for you, you have any medication questions . . "Provider Documentation" section prepared by Sly Silva. VTE Core Measure Inpt VTE Proph given/why not?: SCD's, Contraindicated
[2016-07-20] MEDS ORDERED: MRLP17 PO (14:42)
[2016-07-20 15:19] VITALS: BP 146/84; PULSE 86; TEMP 36.5; O2SAT 91
[2016-07-20 15:50] VITALS: BP 122/78; PULSE 87; TEMP 36.6; O2SAT 90
[2016-07-20] MEDS ORDERED: INSULIN GLARGINE SOLOSTAR 100 UNITS/ML 3 ML PEN SC SCH (20:00)
[2016-09-02] MEDS ORDERED: VENL100T2 PO (10:46)
[2016-09-02] MEDS ORDERED: RIFA550T2 PO (10:46)
[2016-09-02] MEDS ORDERED: METO25TA3 PO (10:47)
[2016-09-02] MEDS ORDERED: LEVO112T4 PO (10:47)
[2016-09-02] MEDS ORDERED: ATOR-26 PO (10:47)
[2016-09-02] MEDS ORDERED: INSDGI SC (11:39)
[2016-09-02] MEDS ORDERED: FRS/40 PO (13:17)
[2016-09-02] MEDS ORDERED: TRMCR130WC TOP (13:17)
[2016-09-02] MEDS ORDERED: NVLGI/PEN SC ×2 (13:17)
[2016-09-02] MEDS ORDERED: LATA0.009 OPB (13:17)
[2016-09-02] MEDS ORDERED: ASPEC81 PO (14:17)
[2016-09-12] MEDS ORDERED: [UNRECOGNIZED DRUG - CODE] PO (16:20)
[2016-09-12] MEDS ORDERED: FRRS300 PO (16:20)
[2016-09-12] MEDS ORDERED: CRG40 PO (16:20)
== END 2016-07-20 15:45 | disposition home or self-care (01) | DRG 378 ==
LOC: ENRESERVTM → ENRESERVDT → EDBD 12:11 → C.EDA 12:18 → C.2E 15:20 → C.MED 07-16 12:43 → C.MS4W 07-17 22:45
PROVIDERS: ADMIT Hospitalist; ATTEND Internal Medicine
PROC: 0DJ08ZZ Inspection of Upper Intestinal Tract, Via Natural or Artificial Opening Endoscopic (ICD-10-PCS; principal; 2016-07-17 10:00)
DX: K92.2 Gastrointestinal hemorrhage, unspecified (principal); N17.9 Acute kidney failure, unspecified; R18.8 Other ascites; J96.11 Chronic respiratory failure with hypoxia; N18.4 Chronic kidney disease, stage 4 (severe); I50.30 Unspecified diastolic (congestive) heart failure; D62 Acute posthemorrhagic anemia; I85.00 Esophageal varices without bleeding; K75.81 Nonalcoholic steatohepatitis (NASH); E11.9 Type 2 diabetes mellitus without complications; E03.9 Hypothyroidism, unspecified; I48.91 Unspecified atrial fibrillation; K31.89 Other diseases of stomach and duodenum; J44.9 Chronic obstructive pulmonary disease, unspecified; Z79.82 Long term (current) use of aspirin; Z80.41 Family history of malignant neoplasm of ovary; Z87.891 Personal history of nicotine dependence; Z79.4 Long term (current) use of insulin

== ENCOUNTER 2016-08-25 19:39 | Inpatient (IN) | payer OTHER ==
[~2016-08-25] VITALS: Ht 167.6 cm; Wt 90.9 kg
[~2016-08-25 19:39] MED LIST changes: -FURO80TA63 PO; +MRLP17 PO; -NVLG SQ; +PRT40 PO; -SPIR50TA3 PO; +SPRN100 PO; -TRAV0.00 OPB
[2016-08-25] MEDS ORDERED: SODIUM CHLORIDE 0.9% 500ML 500 ML IV STA (21:24)
[2016-08-25] MEDS ORDERED: SODIUM CHLORIDE 0.9% 1000ML 1,000 ML IV STA (21:24)
[2016-08-25 21:58] LABS: URINE APPEARANCE CLEAR (CLEAR); URINE BILIRUBIN NEG (NEG); URINE COLOR YELLOW; URINE NITRITE NEG (NEG); URINE SPECIFIC GRAVITY 1.014 (1.000-1.030); UROBILINOGEN NEG (NEG); ZZURINE CULT IF INDIC CATH NO
--- NOTE | 2016-08-25 22:00 | DIAGNOSTIC IMAGING REPORT ---
CHEST ONE VIEW PORTABLE HISTORY: weakness COMPARISON: Chest 07/14/2016. FINDINGS: There is a left shoulder prosthesis. The heart remains mildly enlarged. Mild pulmonary edema has progressed. Trace right pleural effusion persists. Left basilar opacity likely represents a combination of pleural fluid and consolidation. This remains unchanged compared to the 06/02/[address] IMPRESSION: 1. Mild pulmonary edema which has progressed. 2. Trace right and small left pleural effusions are again noted. 3. Left basilar consolidation also persists. Electronically signed by: Armando Dunbar M.D. 08/25/2016 9:59 PM Dictated Date/Time: 08/25/2016 9:57 PM
--- NOTE | 2016-08-25 22:03 | EMERGENCY ROOM VISIT NOTE ---
History Report prepared by Lara: Rafael Rodriguez Under the Supervision of: Dr. Ashlie Darling M.D. First contact with patient: 21:15 Chief Complaint: WEAKNESS Stated Complaint: WEAKNESS, SHAKY Nursing Triage Summary: Patient arrived via ALS from home with complaints of weakness, she has been SOB which has lasted "forever".Also complaints of "shakiness in legs". History of anemia. Patient normally uses 3L NC. History of Present Illness The patient is a 75 year old female who presents to the Emergency Room with complaints of constant weakness beginning one week ago. The patient states that she has been very lightheaded and wobbly. She also states that she has had vision changes and it was hard to put one foot in front of the other. She notes that she was doing well until she had to stay home the past couple of days. The patient states that she has been visiting her who is recovering from surgery. She reports that she has cirrhosis of her liver and was anemic a few weeks ago. The patient states she feels worse now than when she was anemic. She notes that she has had a history of grossly bleeding from her nose and rectum, and her stool sometimes has a reddish tint to it. The patient states that she has been eating well and consumes an average of 4, 16oz glasses of water per day. Source of History: patient Onset: One week ago Position: other (global) Quality: other (weakness) Timing: constant Note: Associated symptoms: lightheaded, wobbly, vision changes, and a red tint to her stool Review of Systems See HPI for pertinent positives & negatives. A total of 10 systems reviewed and were otherwise negative. Past Medical & Surgical Medical Problems: (1) Bladder cancer (2) Cirrhosis of liver (3) CKD (chronic kidney disease), stage III (4) COPD (chronic obstructive pulmonary disease) (5) Depression (6) Diabetes mellitus type 2 (7) Diastolic CHF (8) Dyslipidemia (9) GERD (gastroesophageal reflux disease) (10) GI bleed (11) History of adenomatous polyp of colon (12) History of bladder cancer (13) History of endometrial cancer (14) Hypothyroidism (15) Iron deficiency anemia (16) NSTEMI (non-ST elevated myocardial infarction) (17) Paroxysmal a-fib (18) Portal hypertension (19) Portal vein thrombosis (20) Symptomatic anemia Surgical Problems: (1) H/O colonoscopy with polypectomy (2) H/O esophagogastroduodenoscopy (3) Status post excision bladder tumor (4) Status post hysterectomy Family History FH: ovarian cancer MOTHER Social History Smoking Status: Never Smoker Alcohol Use: none Marital Status: Housing Status: lives with family Occupation Status: retired Current/Historical Medications Scheduled Aspirin (Aspirin EC Low Dose), 81 MG PO 3XWK Atorvastatin (Lipitor), 80 MG PO QPM Docusate Sodium (Docusate Sodium), 100 MG PO BID Furosemide (Lasix), 40 MG PO BID Insulin Aspart (Novolog Flexpen), 30 UNITS SC BIDM Insulin Aspart (Novolog Flexpen), 20-30 UNITS SC QPM Insulin Glargine (Lantus), 45 UNITS SC BID Latanoprost (Xalatan 0.005% Oph Cecilia), 1 DROPS OPB HS Levothyroxine Sodium (Levothyroxine Sodium), 1 TAB PO QAM Metoprolol Succ (Toprol Xl) (Toprol-Xl), 25 MG PO BID Pantoprazole (Pantoprazole Sodium), 40 MG PO BID Polyethylene (Miralax), 17 GM PO DAILY Rifaximin (Xifaxan), 550 MG PO BID Spironolactone (Spironolactone), 100 MG PO QAM Triamcinolone Acet (Aristocort 0.1%), 1 APPLN TOP DAILY Venlafaxine Hcl (Effexor), 100 MG PO DAILY Scheduled PRN Albuterol Sulfate (Proair Respiclick), 2 PUFFS INH Q4 PRN for Shortness of Breath Allergies Coded Allergies: Iron Dextran (Verified Allergy, Severe, IRON INFUSIONS - COULDN'T BREATH - THROAT CLOSING, 05/28/16) Dobutamine (Verified Allergy, Intermediate, DIFFICULTY SWALLOWING, 05/28/16 ) Physical Exam Vital Signs Date Time Temp Pulse Resp B/P Pulse Ox O2 Delivery O2 Flow Rate FiO2 08/26/16 00:49 90 18 94 08/26/16 00:41 90 18 136/53 100 Nebulizer 6.0 08/26/16 00:13 89 08/25/16 23:07 92 18 133/50 100 Nasal Cannula 2.0 08/25/16 21:35 88 18 125/43 100 Nasal Cannula 3.0 08/25/16 20:50 86 08/25/16 20:19 100 Nasal Cannula 3.0 08/25/16 19:52 97 Nasal Cannula 08/25/16 19:52 36.7 88 16 118/48 89 Room Air Physical Exam Vital signs reviewed. General: Chronically ill-appearing, pale, elderly, in no significant distress, diffusely weak, dry mucous membranes HEENT: No scleral icterus, PERRLA, neck supple. Atraumatic. Cardiovascular: Regular rate and rhythm, no extra sounds. Pulmonary: Clear to auscultation bilaterally, normal work of breathing. Abdomen: Soft, obese, nontender, nondistended, positive bowel sounds. Musculoskeletal: Atraumatic, minimal peripheral edema. Rectal: guaiac positive, normal mucosa, brown stool. Neurologic: Patient awake alert and oriented x 3, full strength in all 4 extremities. Cranial nerves 2 through 12 grossly intact. Skin: Warm, dry, no rash Medical Decision & Procedures ER Provider Diagnostic Interpretation: X-ray results as stated below per interpretation by me and the radiologist: CHEST ONE VIEW PORTABLE HISTORY: weakness COMPARISON: Chest 07/14/2016. FINDINGS: There is a left shoulder prosthesis. The heart remains mildly enlarged. Mild pulmonary edema has progressed. Trace right pleural effusion persists. Left basilar opacity likely represents a combination of pleural fluid and consolidation. This remains unchanged compared to the 06/02/[address] IMPRESSION: 1. Mild pulmonary edema which has progressed. 2. Trace right and small left pleural effusions are again noted. 3. Left basilar consolidation also persists. Electronically signed by: Armando Dunbar M.D. 08/25/2016 9:59 PM Dictated Date/Time: 08/25/2016 9:57 PM Laboratory Results 08/25/16 21:49 Red Blood Count 2.46, Mean Corpuscular Volume 78.5, Mean Corpuscular Hemoglobin 23.2, Mean Corpuscular Hemoglobin Concent 29.5, Mean Platelet Volume 9.4, Neutrophils (%) (Auto) 71.1, Lymphocytes (%) (Auto) 14.2, Monocytes (%) (Auto) 12.5, Eosinophils (%) (Auto) 1.2, Basophils (%) (Auto) 0.9, Neutrophils # (Auto ) 6.06, Lymphocytes # (Auto) 1.21, Monocytes # (Auto) 1.07, Eosinophils # (Auto ) 0.10, Basophils # (Auto) 0.08 08/25/16 21:49 Test 08/25/16 21:45 08/25/16 21:46 08/25/16 21:49 08/25/16 21:55 Urine Color YELLOW Urine Appearance CLEAR (CLEAR) Urine pH 5.0 (4.5-7.5) Urine Specific [place] 1.014 (1.000-1.030) Urine Protein NEG (NEG) Urine Glucose (UA) NEG (NEG) Urine Ketones NEG (NEG) Urine Occult Blood NEG (NEG) Urine Nitrite NEG (NEG) Urine Bilirubin NEG (NEG) Urine Urobilinogen NEG (NEG) Urine Leukocyte Esterase NEG (NEG) Ammonia 33.0 umol/L (11-32) White Blood Count 8.53 K/uL (4.8-10.8) Red Blood Count 2.46 M/uL (4.2-5.4) Hemoglobin 5.7 g/dL (12.0-16.0) Hematocrit 19.3 % (37-47) Mean Corpuscular Volume 78.5 fL (80-100) Mean Corpuscular Hemoglobin 23.2 pg (25-34) Mean Corpuscular Hemoglobin Concent 29.5 g/dl (32-36) Platelet Count 419 K/uL (130-400) Mean Platelet Volume 9.4 fL (7.4-10.4) Neutrophils (%) (Auto) 71.1 % Lymphocytes (%) (Auto) 14.2 % Monocytes (%) (Auto) 12.5 % Eosinophils (%) (Auto) 1.2 % Basophils (%) (Auto) 0.9 % Neutrophils # (Auto) 6.06 K/uL (1.4-6.5) Lymphocytes # (Auto) 1.21 K/uL (1.2-3.4) Monocytes # (Auto) 1.07 K/uL (0.11-0.59) Eosinophils # (Auto) 0.10 K/uL (0-0.5) Basophils # (Auto) 0.08 K/uL (0-0.2) RDW Standard Deviation 56.2 fL (36.4-46.3) RDW Coefficient of Variation 19.3 % (11.5-14.5) Immature Granulocyte % (Auto) 0.1 % Immature Granulocyte # (Auto) 0.01 K/uL (0.00-0.02) Hypochromasia PRESENT Prothrombin Time 11.5 SECONDS (9.0-12.0) Prothromb Time International Ratio 1.1 (0.9-1.1) Activated Partial Thromboplast Time 27.2 SECONDS (21.0-31.0) Partial Thromboplastin Ratio 1.0 Est Creatinine Clear Calc Drug Dose 36.7 ml/min Estimated GFR () 36.7 Estimated GFR (Non- 31.6 BUN/Creatinine Ratio 27.9 (10-20) Calcium Level 9.1 mg/dl (8.5-10.1) Magnesium Level 2.4 mg/dl (1.8-2.4) Total Bilirubin 0.8 mg/dl (0.2-1) Direct Bilirubin 0.4 mg/dl (0-0.2) Aspartate Amino Transf (AST/SGOT) 27 U/L (15-37) Alanine Aminotransferase (ALT/SGPT) 22 U/L (12-78) Alkaline Phosphatase 133 U/L (45-117) Total Creatine Kinase 115 U/L (26-192) Creatine Kinase MB 3.8 ng/ml (0.5-3.6) Creatine Kinase MB Ratio 3.3 (0-3.0) Total Protein 7.0 gm/dl (6.4-8.2) Albumin 2.6 gm/dl (3.4-5.0) Thyroid Stimulating Hormone (TSH) 1.700 uIu/ml (0.300-4.500) Bedside Hemoglobin 6.8 g/dl (12.0-16.0) Bedside Hematocrit 20 % (37-47) Bedside Sodium 139 mEq/L (135-144) Bedside Potassium 4.5 mEq/L (3.3-5.0) Bedside Chloride 94 mEq/L (101-112) Bedside Total CO2 30 mEq/l (24-31) Anion Gap 20.0 mmol/L (16-25) Bedside Blood Urea Nitrogen 42 mg/dl (7-18) Bedside Creatinine 1.5 mg/dl (0.6-1.3) Bedside Glucose (other) 168 mg/dl (70-99) Bedside Ionized Calcium (Mitzi) 1.17 mmol/l (1.12-1.32) Bedside Troponin I 0.000 ng/ml (0-0.045) Laboratory results per my review. Medications Administered Medications (Trade) Dose Ordered Sig/Virgil Route Start Time Stop Time Status Last Admin Dose Admin Sodium Chloride 500 ml @ 999 mls/hr Q31M STAT IV 08/25/16 21:24 08/25/16 23:59 DC 08/25/16 21:45 999 MLS/HR Sodium Chloride 1,000 ml @ 125 mls/hr Q8H STAT IV 08/25/16 21:24 08/25/16 23:59 DC 08/25/16 22:15 125 MLS/HR Pantoprazole Sodium/Dextrose (Protonix Inj/D5 100ml) 120 ml @ 400 mls/hr NOW STAT IV 08/25/16 22:51 08/25/16 23:08 DC 08/26/16 00:14 400 MLS/HR Furosemide (Lasix Inj) 60 mg NOW STAT IV 08/26/16 00:07 08/26/16 00:08 DC 08/26/16 00:14 60 MG Ipratropium [place] (Atrovent 0.02% 0.5MG/2.5ML Neb) 0.5 mg NOW STAT INH 08/26/16 00:07 08/26/16 00:08 DC 08/26/16 00:14 0.5 MG Levalbuterol (Xopenex 1.25MG/ 0.5ML Neb) 1.25 mg NOW STAT INH 08/26/16 00:07 08/26/16 00:08 DC 08/26/16 00:14 1.25 MG ECG Indication: weakness Rate (beats per minute): 85 Rhythm: normal sinus Findings: RBBB, no acute ischemic change, no ectopy ED Course 2123: Past medical records reviewed. The patient was evaluated in room B04B. A complete history and physical examination was performed. Ordered Sodium Chloride 1000 ml @ 125 mls/hr IV, Sodium Chloride 500 ml @ 999 mls/hr IV 2128: I performed a rectal exam. The rectal exam results are as follows: guaiac positive, normal mucosa, brown stool. 2250: Ordered Pantoprazole Sodium 80 mg/Dextrose 120 ml @ 400 mls/hr IV 2252: Upon reevaluation, the patient is resting comfortably. I discussed laboratory and radiographic results with her. She verbalized agreement of the treatment plan. I spoke with Dr. Jimenez of the [facility]. The patient will be evaluated for further management and care. 0233: I spoke with the blood bank. They are hoping to receive blood from [facility]. Medical Decision Differential diagnosis: Etiologies such as metabolic, infection, hypo/hyperglycemia, electrolyte abnormalities, cardiac sources, intracerebral event, toxicologic, neurologic, as well as others were entertained. This patient was evaluated and appeared to be in no significant distress. IV access was obtained and laboratory work was drawn. The patient was placed on the microstrategy reports developer and found to be in a normal sinus rhythm. She was found to be guaiac positive on rectal exam. Laboratory work reveals a significant anemia with a hemoglobin of 5.7. The patient's blood pressure has remained stable. She is receiving IV hydration. Patient was given Protonix 80 mg IV. The patient is type and cross for 2 units, she does have a difficult blood type II cross and match given the amount of antibodies in her system. The blood bank feels that they will likely be able to get blood for her within the next several hours from [place]. The patient was discussed with Dr. Barrios of the hospitalist service who is agreed to evaluate the patient for admission and further management. Consults Time Called: [phone] Consulting Physician: Dr. Jimenez, [facility] Returned Call: [phone] Jimenez of the [facility]. The patient will be evaluated for further management and care. Impression Primary Impression: Severe anemia Additional Impression: GI bleed Scribe Attestation The scribe's documentation has been prepared under my direction and personally reviewed by me in its entirety. I confirm that the note above accurately reflects all work, treatment, procedures, and medical decision making performed by me. Departure Information Dispostion Being Evaluated By Hospitalist Referrals Yann Gutierrez D.O. (PCP) Patient Instructions My [facility] Problem Qualifiers
[2016-08-25 22:06] LABS: MANUAL MICROSCOPIC REQUIRED? NO; REVIEW REQ? NO
[2016-08-25 22:08] LABS: ISTAT CREATININE 1.5 mg/dl (0.6-1.3); ISTAT HEMOGLOBIN 6.8 g/dl (12.0-16.0); ISTAT IONIZED CALCIUM 1.17 mmol/l (1.12-1.32)
[2016-08-25 22:13] LABS: INR 1.1 (0.9-1.1); PROTHROMBIN TIME (PATIENT) 11.5 SECONDS (9.0-12.0)
[2016-08-25 22:19] LABS: HEMATOCRIT 19.3 % (37-47); MEAN CELL VOLUME 78.5 fL (80-100); MEAN CORPUSCULAR HEMOGLOBIN 23.2 pg (25-34); MEAN CORPUSCULAR HGB CONC 29.5 g/dl (32-36); MEAN PLATELET VOLUME 9.4 fL (7.4-10.4); PLATELET COUNT 419 K/uL (130-400); RED BLOOD COUNT 2.46 M/uL (4.2-5.4); WHITE BLOOD COUNT 8.53 K/uL (4.8-10.8)
[2016-08-25 22:21] LABS: BASO % 0.9 %; BASO ABS # 0.08 K/uL (0-0.2); BUN/CREATININE RATIO 27.9 (10-20); COMPLETE YES; CREATININE 1.6 mg/dl (0.60-1.20); EOS % 1.2 %; HYPOCHROMIA PRESENT; IG% 0.1 %; LYMPH % 14.2 %; LYMPH ABS # 1.21 K/uL (1.2-3.4); MAGNESIUM 2.4 mg/dl (1.8-2.4); MONO % 12.5 %; NEUT % 71.1 %; POTASSIUM 4.4 mmol/L (3.5-5.1)
[2016-08-25 22:31] LABS: CKMB/CK RATIO 3.3 (0-3.0); THYROID STIMULATING HORMONE 1.7 uIu/ml (0.300-4.500)
[2016-08-25 22:45] LABS: CALCIUM 9.1 mg/dl (8.5-10.1)
[2016-08-25] MEDS ORDERED: PANTOprazole INJ 80 MG in DEXTROSE 5% 100ML 100 ML IV STA (22:51)
[2016-08-25] MEDS ORDERED: FUROSEMIDE INJ 60 MG in SYRINGE 0 ML IV STA (23:58)
[2016-08-25] MEDS ORDERED: LEVALBUTEROL/IPRATROPIUM NEB INH STA (23:58)
[2016-08-26] VITALS (26 sets, daily range): BP systolic 108–157; BP diastolic 44–95; PULSE 83–97; TEMP 36.3–36.9; O2SAT 93–100; Ht 167.6 cm; Wt 90.9 kg
[2016-08-26] MEDS ORDERED: LEVALBUTEROL/IPRATROPIUM NEB INH PRN
[2016-08-26] MEDS ORDERED: LEVALBUTEROL 1.25MG/0.5ML NEB INH STA (00:07)
[2016-08-26] MEDS ORDERED: FUROSEMIDE 40 MG/4 ML VIAL IV STA (00:07)
[2016-08-26] MEDS ORDERED: IPRATROPIUM BROMIDE NEB SOLN 0.02% 2.5 ML VIAL INH STA (00:07)
[2016-08-26] MEDS ORDERED: LEVALBUTEROL 1.25MG/0.5ML NEB INH PRN (00:15)
[2016-08-26] MEDS ORDERED: GLUCAGON FOR INJ 1 MG VIAL SQ PRN (00:15)
[2016-08-26] MEDS ORDERED: GLUCOSE 40% GEL 15 GM TUBE PO PRN (00:15)
[2016-08-26] MEDS ORDERED: NITROGLYCERIN 0.4 MG SL PER TAB CHARGE SL PRN (00:15)
[2016-08-26] MEDS ORDERED: GLUCOSE 10 TABS/TUBE PO PRN (00:15)
[2016-08-26] MEDS ORDERED: ACETAMINOPHEN 325 MG TAB PO PRN (00:15)
[2016-08-26] MEDS ORDERED: IPRATROPIUM BROMIDE NEB SOLN 0.02% 2.5 ML VIAL INH PRN (00:15)
[2016-08-26] MEDS ORDERED: ONDANSETRON INJ 2 MG/ML 2 ML VIAL IV PRN (00:15)
[2016-08-26] MEDS ORDERED: DEXTROSE 50% 50 ML SYR IV PRN (00:15)
[2016-08-26] MEDS ORDERED: RIFAXIMIN TAB 550 MG TAB PO ONE (00:34)
[2016-08-26] MEDS ORDERED: MoRPHine SULFATE 4 MG/ML 1 ML CARP\\VIAL IV PRN (00:45)
[2016-08-26] MEDS ORDERED: TRAMADOL HCL 50 MG TAB PO PRN (00:45)
[2016-08-26] MEDS: PANTOprazole INJ 40 MG in DEXTROSE 5% 100ML 100 ML IV SCH ×3 (01:35→10:43)
[2016-08-26] MEDS ORDERED: CEFTRIAXONE SOD INJ 1 GM in DEXTROSE 5% ADD-VANTAGE 50ML 50 ML IV SCH (02:00)
[2016-08-26] MEDS ORDERED: OXYCODONE HCL IR 5 MG TAB (IMMEDIATE RELEASE) PO PRN (03:15)
--- NOTE | 2016-08-26 05:09 | HISTORY & PHYSICAL EXAMINATION ---
DATE OF ADMISSION: 08/26/2016 PRIMARY CARE DOCTOR: Dr. Gutierrez. CHIEF COMPLAINT: Shortness of breath and weakness. HISTORY OF PRESENT ILLNESS: Hx obtained from px and records. Medical history significant for chronic respiratory failure secondary to COPD on home O2, past tobacco abuse, cirrhosis secondary to nonalcoholic fatty liver disease, history of esophageal varices/diverticulosis, AVMs, polyps. hx portal vein thrombosis/paroxysmal atrial fibrillation off anticoagulation 2 to recurrent GI bleed, history of peripheral vascular disease as per records, DM2, insulin requiring; Chronic renal insufficiency, baseline creatinine of 1.5- 1.6. chronic anemia (baseline hemoglobin 9-10); endometrial cancer status post surgery, bladder tumor spx surgery Recent confinement last month for symptomatic anemia. EGD disclosed small esophageal varices, no other source of bleeding identified. Recommendation was to continue PPI b.i.d. Consider repeat colonoscopy given prior history of AVM, as per endoscopy notes. Patient discharged with a hemoglobin of 8.5. Continuous dark stools mixed with maroon stools since discharge from the hospital. No unusual abdominal pain. No emesis. Some nausea. Last week, increasing shortness of breath especially on exertion. No chest pain. No new cough sx. no unusual fluid retention. Compliant with home meds. At the Emergency Room, hemoglobin noted to be 5.7. Protonix, NSS bolus given at the ER. MEDICAL HISTORY: As above. EGD from 2017 showed small esophageal varices. Colonoscopy 2016 showed polyps, diverticulosis, AVMs, TTE 2017 LVH, EF 70% SURGERIES: She has had bladder tumor surgery, hysterectomy, cataract surgery, oophorectomy HOME MEDICATIONS: Include aspirin, NovoLog, Lantus, Protonix, triamcinolone, albuterol, atorvastatin, docusate sodium, furosemide, latanoprost, levothyroxine, metoprolol MiraLax, rifaximin, spironolactone, and venlafaxine. ALLERGIES: IRON DEXTRAN. FAMILY HISTORY: Family history of heart disease. PERSONAL AND SOCIAL HISTORY: Past tobacco abuse. No chronic intake of alcoholic beverages. 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 REVIEW OF SYSTEMS: As per HPI, all other ROS negative. PHYSICAL EXAMINATION: VITAL SIGNS: Blood pressure was noted to be 130/50, pulse rate 88, RR 16, temperature 36.7, sats 89% on room air, later 97% on nasal cannula. SKIN: Pallor. GENERAL: Obese, no overt respiratory distress although patient occasionally speaks in phrases to catch her breath. HEENT: Pale palpebral conjunctivae. Dry mucosa. NECK: Short neck. LUNGS: Decreased breath sounds. HEART: Regular rate and rhythm. ABDOMEN: Some distention, nontender. EXTREMITIES: min LE edema. no tenderness NEUROLOGIC: No gross focality. LABS: Hemoglobin was noted to be 5.7, hematocrit 19.8, white cell count is 8.5, platelets 400 Sodium 139, potassium 4.4, chloride 99, CO2 34, BUN 40, creatinine 1.6, glucose 163. Troponin 0. Hemoglobin A1c July 2016 was 6.8. IMAGING DATA: Chest x-ray showed cardiomegaly and some congestion and trace pleural effusions, old L basilar consolidation. EKG as per my interpretation : rate 80, normal sinus rhythm, RBBB, no ischemia. ASSESSMENT: 1. SOB multifactorial : Symptomatic anemia (acute on chronic) 2 to ongoing GI bleed since discharge from the hospital last month UGIB and/or LGIB dark/maroon stools description. hx esophageal varices/diverticulosis/AVM/colonic polyps recent endoscopies. pulm congestion (cirrhosis secondary to nonalcoholic fatty liver disease) 2. Hypertension, stable. 3. hx PAF/portal vein thrombosis not on coumadin 2 to recurrent GI bleed 4. hx PVD (carotid artery dse as per records) on ASA/hx NSTEMI as per records 5. chronic resp failure 2 to COPD on home O2, past tobacco abuse _ 6. Chronic renal insufficiency, creatinine at baseline. 7. hx bladder cancer status post surgery. 8. endometrial cancer sp surgery. 9. DM2, insulin requiring, well controlled as of recent HgA1c. PLAN: ICU. Transfuse pRBC to maintain HG > 8 (hx PVD/CAD equivalent dse) Hold home ASA for now. GI consult RE GI bleed. (px known to Dr. Trinh) IV PPI for now until active UGIB definitively ruled out. IV Ceftriaxone for antimicrobial prophylaxis in a cirrhotic px w/ presumptive ongoing UGIB. stat IV Lasix now for pulm congestion, continue home diuretics. ISS BG goal 140-180. DVT prophylaxis, SCDs. RE GI bleed Full code. Total critical care time was 50 minutes. MTDD
[2016-08-26] MEDS: LEVOTHYROXINE 112 MCG TAB PO SCH (05:35)
[2016-08-26] MEDS: INSULIN ASPART 100 UNITS/ML 3 ML PEN SC SCH ×4 (06:12→21:09)
[2016-08-26] MEDS ORDERED: INSULIN GLARGINE SOLOSTAR 100 UNITS/ML 3 ML PEN SC SCH ×2 (09:00→21:00)
[2016-08-26 09:34] LABS: BASO % 1.2 %; EOS % 2.5 %; HEMATOCRIT 25.1 % (37-47); IG% 0.1 %; LYMPH % 17.4 %; MEAN CELL VOLUME 79.2 fL (80-100); MEAN CORPUSCULAR HGB CONC 30.3 g/dl (32-36); MEAN PLATELET VOLUME 9.1 fL (7.4-10.4); MONO % 14.3 %; NEUT % 64.5 %; PLATELET COUNT 350 K/uL (130-400); RED BLOOD COUNT 3.17 M/uL (4.2-5.4); WHITE BLOOD COUNT 8.05 K/uL (4.8-10.8)
[2016-08-26 09:54] LABS: BUN/CREATININE RATIO 23.8 (10-20); CALCIUM 8.6 mg/dl (8.5-10.1); CREATININE 1.7 mg/dl (0.60-1.20); POTASSIUM 4.3 mmol/L (3.5-5.1)
[2016-08-26] MEDS: FUROSEMIDE 40 MG TAB PO SCH ×2 (10:04→16:46)
[2016-08-26] MEDS: SPIRONOLACTONE 100 MG TAB PO SCH (10:04)
[2016-08-26] MEDS: POLYETHYLENE (MIRALAX) 17 GM PACK PO SCH (10:05)
[2016-08-26] MEDS: METOPROLOL SUCC 25MG EXT REL TAB PO SCH ×2 (10:05→21:08)
[2016-08-26] MEDS: VENLAFAXINE HCL 50 MG TAB PO SCH (10:05)
[2016-08-26] MEDS: RIFAXIMIN TAB 550 MG TAB PO SCH ×2 (10:06→21:08)
[2016-08-26] MEDS: DOCUSATE SODIUM 100 MG CAP PO SCH ×2 (10:06→21:08)
[2016-08-26 10:34] LABS: COMPLETE YES; HYPOCHROMIA PRESENT; MICROCYTOSIS PRESENT; POLYCHROMASIA 1+
--- NOTE | 2016-08-26 10:54 | Progress Note ---
Internal Med Progress Note Date of Service: August 26, 2016. Provider Documentation: SUBJECTIVE: Patient is feeling much better- reading newspaper. Does have chronic dark stools, no change. No hematemesis but had SOB/increased fatigue which brought her to ER Today doing well. Denies any worsening of SOB, feeling more energetic. No chest pain, abd pain, diarrhea, fever, chills, cough. On 3 L oxygen as at home OBJECTIVE: Vital Signs-as noted below Exam: General Appearance: no apparent distress; AAOX3 Eyes: Pallor + Neck: supple Respiratory/Chest: no respiratory distress, no accessory muscle use, + decreased breath sounds B/L Cardiovascular: regular rate, rhythm Abdomen/GI: normal bowel sounds, non tender, soft, + pertinent finding (mildly distended but soft) Extremities/Musculoskelatal: + pertinent finding (trace bilateral lower extremity edema) Skin: + pallor, + pertinent finding (chronic venous stasis changes with erythema of bilateral lower legs) Lab data as noted below. ASSESSMENT & PLAN: ASSESSMENT & PLAN: SYMPTOMATIC ACUTE ON CHRONIC ANEMIA, Likely Chronic GI blood loss Presented with increasing SOB, lightheadedness, generalized weakness, likely secondary to anemia in setting of multiple chronic conditions- COPD, B/l Pleural effusion, GRAHAM cirrhosis. Has had multiple admissions in past for similar reason. Last one was last month 07/2016 when she was transfused PRBCs/ EGD was done. Hg is 5.7 on presentation -Possible Upper GI bleeding with hx of GRAHAM Cirrhosis, Portal HT, Varices. 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 Recent EGD last month 07/2016- small esophageal varices, no other source of bleeding identified. -Transfused 3 units of PRBCs so far with dose of IV Lasix 60 mg which improved symptoms--> Hb 7.6 today -Protonix drip changed to Protonix 40 mg IV BID -Dental cut soft diet + -Monitor H & H -GI on board. No plans for any further intervention. Colonoscopy to be done outpatient as planned during last admission per Dr Damico GRAHAM CIRRHOSIS with ASCITES: Last paracentesis was on 05/29/16- 100cc chylous appearing fluid, WBC < 500, culture- no growth -Continue with Home lasix /Aldactone starting today evening CHRONIC HYPOXIC RESPIRATORY FAILURE Currently saturating well on 3 liters NC ( baseline as at home) -Multifactorial: Has underlying COPD, Chronic Bilateral pleural effusions, GRAHAM cirrhosis with portal HTN and ascites, normal EF on 2014 echo -CXR shows resolving Mild pulmonary vascular congestion, Lt basilar opacity likely combination of pleural fluid and LLL atelectasis/ consolidation (CHRONIC CHANGES). No indication of antibiotics as clinically no signs of pneumonia and CXR changes are all chronic. Discontinue IV Rocephin -Had Left thoracentesis on 06/01/16 -- 1.4 L chylous effusion; complicated by small pneumothorax post-procedure H/O HEPATIC ENCEPHALOPATHY Mental status normal- AAOX3 as at baseline Ammonia level-41 -Continue Rifaximin, Dulcolax, Colace. Unable to tolerate lactulose in past NESTOR ON CKD STAGE IV Creat is 1.7; baseline 1.1-1.3 -Monitor renal function while on diuretics DM II Uncontrolled Last A1c: 9.9 02/2016 -Lantus , ISS to be continued -Pharmacy consult placed HYPOTHYROIDISM: -Continue Levothyroxine PAROXYSMAL AFIB currently in NSR; rate controlled -Continue Beta moises -Not on anticoagulated due to anemia/GI bleeding DVT PROPHYLAXIS -SCDs due to hx varices, anemia, GI bleeding CODE STATUS -Full code DISPOSITION: PT/OT ordered Ok to transfer to med-surg Discussed with Batch Analyst Vital Signs: Date Time Temp Pulse Resp B/P Pulse Ox O2 Delivery O2 Flow Rate FiO2 08/26/16 10:00 36.4 96 15 127/52 95 08/26/16 08:15 36.7 97 17 157/57 95 3.0 08/26/16 08:00 Nasal Cannula 3.0 08/26/16 07:30 36.9 86 16 122/47 97 3.0 08/26/16 07:00 36.6 92 15 148/51 97 3.0 08/26/16 06:30 36.6 92 16 130/52 98 3.0 08/26/16 06:15 36.7 88 18 120/51 96 3.0 08/26/16 06:00 36.7 90 20 127/49 97 3.0 08/26/16 05:45 36.7 93 18 127/46 97 3.0 08/26/16 04:45 36.6 90 20 134/66 97 3.0 08/26/16 04:15 36.6 92 21 131/48 98 3.0 08/26/16 04:00 Nasal Cannula 3.0 08/26/16 03:45 36.7 90 19 123/53 98 3.0 08/26/16 03:30 36.6 96 18 126/49 97 3.0 08/26/16 03:16 36.7 94 18 112/44 97 3.0 08/26/16 03:00 91 14 98 08/26/16 02:00 90 17 109/55 98 Nasal Cannula 3.0 08/26/16 01:28 36.8 93 21 125/51 100 Nasal Cannula 2.0 08/26/16 00:49 90 18 94 08/26/16 00:41 90 18 136/53 100 Nebulizer 6.0 08/26/16 00:13 89 08/25/16 23:07 92 18 133/50 100 Nasal Cannula 2.0 08/25/16 21:35 88 18 125/43 100 Nasal Cannula 3.0 08/25/16 20:50 86 08/25/16 20:19 100 Nasal Cannula 3.0 08/25/16 19:52 97 Nasal Cannula 08/25/16 19:52 36.7 88 16 118/48 89 Room Air Lab Results: Results Past 24 Hours Test 08/25/16 21:45 08/25/16 21:46 08/25/16 21:49 08/25/16 21:55 Range/Units Urine Color YELLOW Urine Appearance CLEAR CLEAR Urine pH 5.0 4.5-7.5 Urine Specific [place] 1.014 1.000-1.030 Urine Protein NEG NEG Urine Glucose (UA) NEG NEG Urine Ketones NEG NEG Urine Occult Blood NEG NEG Urine Nitrite NEG NEG Urine Bilirubin NEG NEG Urine Urobilinogen NEG NEG Urine Leukocyte Esterase NEG NEG Ammonia 33.0 11-32 umol/L White Blood Count 8.53 4.8-10.8 K/uL Red Blood Count 2.46 4.2-5.4 M/uL Hemoglobin 5.7 12.0-16.0 g/dL Hematocrit 19.3 37-47 % Mean Corpuscular Volume 78.5 80-100 fL Mean Corpuscular Hemoglobin 23.2 25-34 pg Mean Corpuscular Hemoglobin Concent 29.5 32-36 g/dl Platelet Count 419 130-400 K/uL Mean Platelet Volume 9.4 7.4-10.4 fL Neutrophils (%) (Auto) 71.1 % Lymphocytes (%) (Auto) 14.2 % Monocytes (%) (Auto) 12.5 % Eosinophils (%) (Auto) 1.2 % Basophils (%) (Auto) 0.9 % Neutrophils # (Auto) 6.06 1.4-6.5 K/uL Lymphocytes # (Auto) 1.21 1.2-3.4 K/uL Monocytes # (Auto) 1.07 0.11-0.59 K/uL Eosinophils # (Auto) 0.10 0-0.5 K/uL Basophils # (Auto) 0.08 0-0.2 K/uL RDW Standard Deviation 56.2 36.4-46.3 fL RDW Coefficient of Variation 19.3 11.5-14.5 % Immature Granulocyte % (Auto) 0.1 % Immature Granulocyte # (Auto) 0.01 0.00-0.02 K/uL Hypochromasia PRESENT Prothrombin Time 11.5 9.0-12.0 SECONDS Prothromb Time International Ratio 1.1 0.9-1.1 Activated Partial Thromboplast Time 27.2 21.0-31.0 SECONDS Partial Thromboplastin Ratio 1.0 Sodium Level 139 136-145 mmol/L Potassium Level 4.4 3.5-5.1 mmol/L Chloride Level 99 98-107 mmol/L Carbon Dioxide Level 34 21-32 mmol/L Anion Gap 6.0 20.0 16-25 mmol/L Blood Urea Nitrogen 45 7-18 mg/dl Creatinine 1.60 0.60-1.20 mg/dl Est Creatinine Clear Calc Drug Dose 36.7 ml/min Estimated GFR () 36.7 Estimated GFR (Non- 31.6 BUN/Creatinine Ratio 27.9 10-20 Random Glucose 163 70-99 mg/dl Calcium Level 9.1 8.5-10.1 mg/dl Magnesium Level 2.4 1.8-2.4 mg/dl Total Bilirubin 0.8 0.2-1 mg/dl Direct Bilirubin 0.4 0-0.2 mg/dl Aspartate Amino Transf (AST/SGOT) 27 15-37 U/L Alanine Aminotransferase (ALT/SGPT) 22 12-78 U/L Alkaline Phosphatase 133 45-117 U/L Total Creatine Kinase 115 26-192 U/L Creatine Kinase MB 3.8 0.5-3.6 ng/ml Creatine Kinase MB Ratio 3.3 0-3.0 Total Protein 7.0 6.4-8.2 gm/dl Albumin 2.6 3.4-5.0 gm/dl Thyroid Stimulating Hormone (TSH) 1.700 0.300-4.500 uIu/ml Bedside Hemoglobin 6.8 12.0-16.0 g/dl Bedside Hematocrit 20 37-47 % Bedside Sodium 139 135-144 mEq/L Bedside Potassium 4.5 3.3-5.0 mEq/L Bedside Chloride 94 101-112 mEq/L Bedside Total CO2 30 24-31 mEq/l Bedside Blood Urea Nitrogen 42 7-18 mg/dl Bedside Creatinine 1.5 0.6-1.3 mg/dl Bedside Glucose (other) 168 70-99 mg/dl Bedside Ionized Calcium (Mitzi) 1.17 1.12-1.32 mmol/l Bedside Troponin I 0.000 0-0.045 ng/ml Test 08/26/16 06:11 08/26/16 09:25 Range/Units Bedside Glucose 162 70-90 mg/dl White Blood Count 8.05 4.8-10.8 K/uL Red Blood Count 3.17 4.2-5.4 M/uL Hemoglobin 7.6 12.0-16.0 g/dL Hematocrit 25.1 37-47 % Mean Corpuscular Volume 79.2 80-100 fL Mean Corpuscular Hemoglobin 24.0 25-34 pg Mean Corpuscular Hemoglobin Concent 30.3 32-36 g/dl Platelet Count 350 130-400 K/uL Mean Platelet Volume 9.1 7.4-10.4 fL Neutrophils (%) (Auto) 64.5 % Lymphocytes (%) (Auto) 17.4 % Monocytes (%) (Auto) 14.3 % Eosinophils (%) (Auto) 2.5 % Basophils (%) (Auto) 1.2 % Neutrophils # (Auto) 5.19 1.4-6.5 K/uL Lymphocytes # (Auto) 1.40 1.2-3.4 K/uL Monocytes # (Auto) 1.15 0.11-0.59 K/uL Eosinophils # (Auto) 0.20 0-0.5 K/uL Basophils # (Auto) 0.10 0-0.2 K/uL RDW Standard Deviation 51.3 36.4-46.3 fL RDW Coefficient of Variation 17.7 11.5-14.5 % Immature Granulocyte % (Auto) 0.1 % Immature Granulocyte # (Auto) 0.01 0.00-0.02 K/uL Polychromasia 1+ Hypochromasia PRESENT Microcytosis PRESENT Sodium Level 142 136-145 mmol/L Potassium Level 4.3 3.5-5.1 mmol/L Chloride Level 101 98-107 mmol/L Carbon Dioxide Level 35 21-32 mmol/L Anion Gap 6.0 3-11 mmol/L Blood Urea Nitrogen 40 7-18 mg/dl Creatinine 1.70 0.60-1.20 mg/dl Est Creatinine Clear Calc Drug Dose 34.0 ml/min Estimated GFR () 34.1 Estimated GFR (Non- 29.4 BUN/Creatinine Ratio 23.8 10-20 Random Glucose 148 70-99 mg/dl Calcium Level 8.6 8.5-10.1 mg/dl Ammonia 41.0 11-32 umol/L Microbiology Results 08/26/16 MRSA DNA Surveillance Screen - Final, Complete Specimen Negative for MRSA by DNA Probe
--- NOTE | 2016-08-26 12:45 | GASTROINTESTINAL CONSULTATION ---
DATE OF CONSULTATION: 08/26/2016 ATTENDING PHYSICIAN: Dr. Jimenez. CONSULTING PHYSICIAN: Dr. Damico. REASON FOR CONSULTATION: GI bleed. HISTORY OF PRESENT ILLNESS: Mr. Coy is a 75-year-old female who was recently hospitalized from 07/14/2016 until 07/20/2016 with GRAHAM cirrhosis and symptomatic anemia with heme-positive stool at that time. She did undergo an EGD on 07/17/[address] Russell which showed no source of GI bleeding. It should be noted that she has also undergone a colonoscopy within the past year on 11/02/2015. She had a colonoscopy by Dr. Trinh which showed 2 small polyps in the colon, diverticulosis, a lipoma in the ascending colon and a few small AVMs in the cecum with rectal varices noted. The colon polyps were noted to be tubular adenomas and she is following with Dr. Trinh in this regard. She presented to the Department of Emergency Medicine on 08/25/2016 with complaints of weakness and shortness of breath. Her H\T\H on arrival was noted to be 5.7 and 19.3. Of note, her discharge hemoglobin on 07/20/2016 was 8.5 and 28.1. PT and INR were normal. Her liver panel was unremarkable and a chest x-ray showed mild pulmonary edema which has progressed, trace right and small left pleural effusion were noted. She was subsequently admitted to the ICU, transfused 2 units of packed red blood cells. She was placed on IV PPI therapy. At the time that I saw the patient, she had no reported overt GI blood loss per nursing, in fact she had not had a bowel movement since her arrival. She was transfused 2 units of packed red blood cells and a repeat H\T\H did show an appropriate response with a hemoglobin of 7.6 and hematocrit of 25.1. She does complain of continued weakness. Denies any lightheadedness, dizziness, hematemesis, melena or hematochezia at present. She further denies any headaches, blurred vision or loss of consciousness. Currently, she describes no abdominal pain and further denies any nausea or vomiting. It was recommended that she undergo an outpatient colonoscopy following her last admission; however, she refused this as she needed to be at home to take care of her ill . She has no further complaints. PAST MEDICAL HISTORY: Extensive and includes COPD on home O2, GRAHAM cirrhosis, history of esophageal varices, diverticulosis, colonic AVMs, colon polyps, portal vein thrombosis, paroxysmal atrial fibrillation, currently not on anticoagulation therapy, peripheral vascular disease, type 2 diabetes, chronic renal insufficiency, chronic anemia, endometrial cancer. PAST SURGICAL HISTORY: Includes surgery regarding her endometrial cancer, bladder tumor status post surgery, EGD and colonoscopy. ALLERGIES: DOBUTAMINE AND IRON DEXTRAN. MEDICATIONS: At present Lipitor 80 mg p.o. q. p.m., Xalatan eyedrops to each eye at bedtime, Protonix 40 mg IV b.i.d., Colace 100 mg p.o. b.i.d., Lasix 40 mg p.o. b.i.d., Toprol-XL 25 mg p.o. b.i.d., MiraLax 17 grams p.o. daily, Xifaxan 550 mg p.o. b.i.d., spironolactone 100 mg p.o. q. a.m., Effexor 100 mg p.o. daily, Lantus insulin 5 units subQ daily, Synthroid 112 mcg p.o. daily, oxycodone 5 mg p.o. q. 6 hours p.r.n. pain, morphine 4 mg IV q. 6 hours p.r.n. pain, Xopenex via nebulizer every 4 hours p.r.n. shortness of breath, Nitrostat 0.4 mg sublingual as directed p.r.n. chest pain, Zofran 4 mg IV q. 6 p.r.n. nausea. SOCIAL HISTORY: She denies any tobacco, alcohol or illicit drug use. She is . FAMILY HISTORY: Negative for GI malignancy or inflammatory bowel disease. REVIEW OF SYSTEMS: Negative 10-system review other than pertinent positives listed in the HPI. PHYSICAL EXAMINATION: VITAL SIGNS: Temperature is 36.6, pulse 89, respirations 20, blood pressure 121/48, pulse ox 98% on 3 liters via nasal cannula. GENERAL: She is awake, cooperative, chronic ill appearing, in no acute distress. HEAD: Normocephalic, atraumatic. EYES: Pupils equally round. Extraocular muscles are intact. ENT: External evaluation of ears and nose are normal. Oropharynx is clear. NECK: Soft and supple. CHEST: Decreased breath sounds bilateral bases. CARDIOVASCULAR SYSTEM: Regular rate and rhythm. ABDOMEN: Soft, mildly tender in the epigastric area. Nondistended. There are positive bowel sounds. There is no hepatosplenomegaly appreciable on exam. EXTREMITIES: No clubbing, cyanosis or edema. SCDs in place bilaterally. LABORATORY STUDIES AND RADIOGRAPHIC STUDIES: Were reviewed in the HPI. IMPRESSION: A 75-year-old female with history of nonalcoholic steatohepatitis cirrhosis with esophageal varices, stable on EGD last month and a colonoscopy within the past year which showed some cecal AVMs. Currently without overt gastrointestinal bleeding. PLAN: At the present time, I would recommend continued supportive care with IV PPI therapy and would not recommend that the patient undergo invasive testing emergently as she has had both an EGD and a colonoscopy within the past 8 months. I will follow her clinical course and make recommendations regarding further workup. If she has any overt GI bleeding this would obviously impact our decision going forward because she was recommended to have an outpatient colonoscopy, this could be considered at a later time during this hospitalization, though I would recommend medical management and would do this only if needed. Once again, thank you for allowing me to participate in the care of this patient. If you have any further questions, please do not hesitate in contacting me.
--- NOTE | 2016-08-26 13:17 | CRITICAL CARE CONSULTATION ---
DATE OF CONSULTATION: 08/26/2016 CHIEF COMPLAINT: Weakness and shortness of breath. HISTORY OF PRESENT ILLNESS: The patient is a 75-year-old woman with a history of cirrhosis secondary to GRAHAM, who presents to the Emergency Department with complaints of lightheadedness and weakness for the past 7 days at least. She was recently hospitalized between July 14 and July 20 here at [facility] at which time she had a GI bleed and required 3 units of packed red blood cells. Her last upper endoscopy was on July 17 which showed grade 1 esophageal varices, but no evidence of active bleeding. Colonoscopy was to be performed as an outpatient. Since that time, she has not felt well and has noticed a maroon color to the toilet paper when she wipes after a bowel movement. She tells me the stool in the commode is brown. She has been having 2 or 3 bowel movements per day. No nausea or vomiting. She has been increasingly short of breath with activity, but denies chest pain. She was discharged in July on oxygen and has a history of chronic obstructive pulmonary disease. She denies abdominal pain and has been eating well. Her lightheadedness dates back several months, but may have been a bit worse. She has also been more active recently, trying to help take care of her who is at [place] after a toe amputation. She denies hematemesis, bright red blood per rectum, melena or coffee ground emesis. She is taking a baby aspirin daily. She was seen in the Emergency Department and a rectal exam was done showing brown stool which was guaiac positive. She was given a normal saline 500 mL bolus and placed on saline 125 mL per hour. She was also given a Protonix bolus and infusion. Hemoglobin was 5.7, repeated 6.8. She is now status post 2 units of packed red blood cells. She has antibodies which delayed the cross matching and delivery of her blood. PAST MEDICAL HISTORY: Cirrhosis secondary to GRAHAM, diagnosed approximately 20 years ago according to her report, portal hypertensive gastropathy, ascites, paroxysmal atrial fibrillation, chronic obstructive pulmonary disease, left chylous pleural effusion, left pneumothorax, hypothyroidism, diabetes mellitus, depression, hyperlipidemia, bladder cancer, endometrial cancer and non-ST segment elevation myocardial infarction. PAST SURGICAL HISTORY: Hysterectomy and bladder tumor resection. ALLERGIES: TO IRON AND DOBUTAMINE. OUTPATIENT MEDICATIONS: Albuterol p.r.n., aspirin 81 mg three times per week, Lipitor 80 mg at bedtime, Colace 100 mg b.i.d., NovoLog insulin 30 units b.i.d. with meals, 20-30 units before supper, Lantus 45 units b.i.d., Xalatan eyedrops, levothyroxine 112 mcg a day, Toprol-XL 25 mg b.i.d., Protonix 40 mg b.i.d., MiraLax 17 grams daily, Xifaxan 550 mg b.i.d., spironolactone 100 mg daily, triamcinolone topical one application daily and Effexor 100 mg daily. SOCIAL HISTORY: She is . Smoked half pack of cigarettes per day for 20 years; she quit in the . She does not drink any alcohol. FAMILY HISTORY: Significant for mother with ovarian cancer. REVIEW OF SYSTEMS: She feels cognitively she is not as bright or quick to remember things as in the past. She has had some visual changes, which she has difficulty describing. No headaches, no back pain, no lower extremity edema, no falls and no bruising. Her whole body feels "stiff." No difficulty swallowing. No wheezing. No cough, fevers or chills. Additional review of systems are negative or noncontributory other than what was discussed in the history of present illness. PHYSICAL EXAMINATION: GENERAL: This is an overweight elderly lady, sitting in bed in no acute distress. VITAL SIGNS: Temperature 36.7, heart rate 97, respiratory rate 16, blood pressure 112/50 and oxygen saturation 95% on three liters nasal cannula. HEENT: Pupils are equally round and reactive to light. Oral mucosa is moist. She wears dentures. Posterior pharynx is clear. NECK: No adenopathy, trachea midline. No thyromegaly. Neck veins are flat. LUNGS: Clear to auscultation bilaterally. No rales, rhonchi or wheezes. HEART: Regular rate and rhythm, distant. No murmur. ABDOMEN: Obese, soft, nondistended and nontender other than in the right upper quadrant where there is an indurated area where she gives herself her insulin; that is tender to palpation. No rebound or guarding. Bowel sounds are active. EXTREMITIES: Warm, trace pretibial edema. Radial and dorsalis pedis pulses are 2+ bilaterally. SKIN: Shows some petechia over the right arm. LABORATORY DATA: Urinalysis is negative. White blood cell count 8.53, hemoglobin 5.7, hematocrit 19.3 and platelets 419. PT, PTT and INR within normal limits. Sodium 139, potassium 4.4, chloride 99, CO2 34, BUN 45, creatinine 1.6, blood sugar 163 and total bilirubin 0.8. AST and ALT within normal limits. Alkaline phosphatase 133. Ammonia 33, albumin 2.6. TSH 1.7. Portable chest x-ray from this morning was reviewed and shows some mild pulmonary vascular congestion. No definite infiltrates. EKG; normal sinus rhythm, right bundle branch block and nonspecific ST-T wave changes. PRESENT MEDICATIONS: Acetaminophen, atorvastatin, ceftriaxone, Colace, Lasix, insulin longacting and sliding scale, Atrovent, Xalatan, Xopenex, Synthroid, Toprol-XL, morphine, Nitrostat, Zofran, Roxicodone, Protonix infusion, MiraLax, Xifaxan, spironolactone and Effexor. IMPRESSION: 1. Anemia due to blood loss - more likely chronic than acute. By history, I suspect that she has had some gastrointestinal bleeding which may not have entirely resolved from her last admission. Hemodynamically, she is tolerating this very well. She underwent an upper endoscopy on July 17 and gastroenterology service has been consulted. Per her nurse, there are no plans for endoscopies over the weekend unless something changes. Her aspirin has been held. 2. History of gastrointestinal bleed and heme positive stool presently. 3. Acute kidney injury, creatinine has been anywhere between 1.2 and 1.7 over the past few months. She may be mildly hypovolemic. 4. History of cirrhosis, secondary to nonalcoholic steatohepatitis with portal hypertensive gastropathy and grade 1 esophageal varices. 5. Hypothyroidism. 6. Diabetes mellitus. 7. History of paroxysmal atrial fibrillation, not on anticoagulation secondary to her history of gastrointestinal bleeding. 8. History of chronic obstructive pulmonary disease. PLAN: 1. Neurologic; use acetaminophen for pain. I would decrease p.r.n. morphine as well. Presently, she has no complaints of pain and is grossly neurologically intact. 2. Pulmonary; continue oxygen via nasal cannula as well as p.r.n. bronchodilators. Discontinue Xopenex and use DuoNeb or Combivent. 3. Hematologic; transfuse third unit of packed red blood cells and monitor hemoglobin and hematocrit every 6-8 hours. SCDs for deep venous thrombosis prophylaxis. 4. Cardiovascular; continue Toprol-XL. 5. Gastrointestinal; continue Protonix infusion. She is going to be allowed a diet per the gastroenterology service. I agree with continuing the spironolactone and Lasix. Continue MiraLax and Colace as well as Xifaxan. 6. Infectious disease; consider discontinuing the ceftriaxone. I presume this is for spontaneous bacterial peritonitis prophylaxis. I will wait until the gastroenterology service has seen her. 7. Renal; monitor creatinine and avoid nephrotoxins. Thank you for asking me to see this nice lady. Once her hemoglobin is within more of a normal range and if she remains hemodynamically stable, I think she can be transferred to telemetry. SHARMILA
[2016-08-26 13:32] LABS: HEMATOCRIT 29.2 % (37-47)
[2016-08-26 18:38] LABS: HEMATOCRIT 29.1 % (37-47)
[2016-08-26] MEDS: LATANOPROST 0.005% OP SOLN 2.5 ML BTL OPB SCH (21:07)
[2016-08-26] MEDS: PANTOprazole INJ 40 MG in SYRINGE 0 ML IV SCH (21:07)
[2016-08-26] MEDS: ATORVASTATIN 40 MG TAB PO SCH (21:08)
[2016-08-26] MEDS: INSULIN GLARGINE SOLOSTAR 100 UNITS/ML 3 ML PEN SC SCH (21:09)
[2016-08-27] MEDS: LEVOTHYROXINE 112 MCG TAB PO SCH (05:58)
[2016-08-27 06:48] LABS: BASO % 0.5 %; BASO ABS # 0.05 K/uL (0-0.2); EOS % 1.7 %; HEMATOCRIT 28.9 % (37-47); IG% 0.1 %; LYMPH % 12.9 %; LYMPH ABS # 1.26 K/uL (1.2-3.4); MEAN CELL VOLUME 80.5 fL (80-100); MEAN CORPUSCULAR HEMOGLOBIN 24.2 pg (25-34); MEAN CORPUSCULAR HGB CONC 30.1 g/dl (32-36); MEAN PLATELET VOLUME 9.2 fL (7.4-10.4); MONO % 13.7 %; NEUT % 71.1 %; PLATELET COUNT 352 K/uL (130-400); RED BLOOD COUNT 3.59 M/uL (4.2-5.4); WHITE BLOOD COUNT 9.74 K/uL (4.8-10.8)
[2016-08-27 07:17] LABS: CALCIUM 8.7 mg/dl (8.5-10.1); CREATININE 1.8 mg/dl (0.60-1.20); POTASSIUM 4.6 mmol/L (3.5-5.1)
[2016-08-27 07:20] LABS: COMPLETE YES; HYPOCHROMIA PRESENT; MICROCYTOSIS PRESENT; POLYCHROMASIA 1+
[2016-08-27] MEDS: PANTOprazole INJ 40 MG in SYRINGE 0 ML IV SCH ×2 (08:06→20:48)
[2016-08-27] MEDS: SPIRONOLACTONE 100 MG TAB PO SCH (08:06)
[2016-08-27] MEDS: DOCUSATE SODIUM 100 MG CAP PO SCH ×2 (08:07→20:49)
[2016-08-27] MEDS: RIFAXIMIN TAB 550 MG TAB PO SCH ×2 (08:08→20:50)
[2016-08-27] MEDS: VENLAFAXINE HCL 50 MG TAB PO SCH (08:08)
[2016-08-27] MEDS: FUROSEMIDE 40 MG TAB PO SCH ×2 (08:09→17:11)
[2016-08-27] MEDS: POLYETHYLENE (MIRALAX) 17 GM PACK PO SCH (08:09)
[2016-08-27 08:10] VITALS: BP 152/72; PULSE 90; TEMP 36.9; O2SAT 94
[2016-08-27] MEDS: METOPROLOL SUCC 25MG EXT REL TAB PO SCH ×2 (08:11→20:49)
[2016-08-27] MEDS: INSULIN ASPART 100 UNITS/ML 3 ML PEN SC SCH ×4 (08:12→20:55)
[2016-08-27] MEDS: INSULIN GLARGINE SOLOSTAR 100 UNITS/ML 3 ML PEN SC SCH ×2 (08:22→20:56)
--- NOTE | 2016-08-27 10:55 | Progress Note ---
Internal Med Progress Note Date of Service: August 27, 2016. Provider Documentation: SUBJECTIVE: Patient does feel more SOB at rest today, but not in distress. Does have chronic dark stools, no change. No hematemesis but had SOB/increased fatigue which brought her to ER. No chest pain, abd pain, diarrhea, fever, chills, cough. No acute bleeding episodes. On 3 L oxygen as at home OBJECTIVE: Vital Signs-as noted below Exam: General Appearance: no apparent distress; AAOX3 Eyes: Pallor + Neck: supple Respiratory/Chest: no respiratory distress, no accessory muscle use, + decreased breath sounds B/L- few crackles at bases present Cardiovascular: regular rate, rhythm Abdomen/GI: normal bowel sounds, non tender, soft, + pertinent finding (mildly distended but soft) Extremities/Musculoskelatal: + pertinent finding (trace bilateral lower extremity edema) Skin: + pallor, + pertinent finding (chronic venous stasis changes with erythema of bilateral lower legs) Lab data as noted below. ASSESSMENT & PLAN: ASSESSMENT & PLAN: SYMPTOMATIC ACUTE ON CHRONIC ANEMIA, Likely Chronic GI blood loss Presented with increasing SOB, lightheadedness, generalized weakness, likely secondary to anemia in setting of multiple chronic conditions- COPD, B/l Pleural effusion, GRAHAM cirrhosis. Has had multiple admissions in past for similar reason. Last one was last month 07/2016 when she was transfused PRBCs/ EGD was done. Hg is 5.7 on presentation -Possible Upper GI bleeding with hx of GRAHAM Cirrhosis, Portal HT, Varices. 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 Recent EGD last month 07/2016- small esophageal varices, no other source of bleeding identified. -Transfused 3 units of PRBCs so far with dose of IV Lasix 60 mg which improved symptoms--> Hb 8.7 today -S/P Protonix drip --> Protonix 40 mg IV BID -Dental cut soft diet + -Monitor H & H. -GI on board. No plans for any further intervention. Colonoscopy to be done outpatient as planned during last admission per Dr Damico WORSENING SOB Feels a bit more SOB today in spite of Hb up to 8.7 . Likely secondary to volume overload due to blood transfusions yesterday -Will give an extra dose of lasix 40 mg x 1. Continue with home lasix, aldactone -Requiring same levels of oxygen -CXR yesterday- some congestion. -Monitor. GRAHAM CIRRHOSIS with ASCITES: Last paracentesis was on 05/29/16- 100cc chylous appearing fluid, WBC < 500, culture- no growth -Continue with Home lasix /Aldactone as above CHRONIC HYPOXIC RESPIRATORY FAILURE Currently saturating well on 3 liters NC ( baseline as at home) -Multifactorial: Has underlying COPD, Chronic Bilateral pleural effusions, GRAHAM cirrhosis with portal HTN and ascites, normal EF on 2013 echo -CXR shows resolving Mild pulmonary vascular congestion, Lt basilar opacity likely combination of pleural fluid and LLL atelectasis/ consolidation (CHRONIC CHANGES). No indication of antibiotics as clinically no signs of pneumonia and CXR changes are all chronic. Discontinued IV Rocephin after 24 hours -Had Left thoracentesis on 06/01/16 -- 1.4 L chylous effusion; complicated by small pneumothorax post-procedure H/O HEPATIC ENCEPHALOPATHY Mental status normal- AAOX3 as at baseline Ammonia level-41 -Continue Rifaximin, Dulcolax, Colace. Unable to tolerate lactulose in past NESTOR ON CKD STAGE IV Creat is 1.8; baseline 1.1-1.3 -Monitor while being on lasix -Monitor renal function while on diuretics DM II Uncontrolled Last A1c: 9.9 02/2016 -Lantus , ISS to be continued -Pharmacy consult placed HYPOTHYROIDISM: -Continue Levothyroxine PAROXYSMAL AFIB currently in NSR; rate controlled -Continue Beta moises -Not on anticoagulated due to anemia/GI bleeding DVT PROPHYLAXIS -SCDs due to hx varices, anemia, GI bleeding CODE STATUS -Full code DISPOSITION: PT/OT ordered Expected discharge home when stable'' Updated , Chris on phone yesterday Vital Signs: Date Time Temp Pulse Resp B/P Pulse Ox O2 Delivery O2 Flow Rate FiO2 08/27/16 08:10 36.9 90 18 152/72 94 3.0 08/27/16 00:00 Room Air 3.0 08/26/16 23:44 36.3 90 16 131/64 93 Room Air 08/26/16 21:05 90 125/64 08/26/16 19:30 Nasal Cannula 3.0 08/26/16 16:47 90 126/69 08/26/16 13:45 Nasal Cannula 3.0 08/26/16 13:15 36.7 83 20 108/58 94 Nasal Cannula 3.0 08/26/16 13:01 36.9 89 16 96 3.0 08/26/16 12:00 36.9 89 16 133/95 96 3.0 08/26/16 12:00 Nasal Cannula 3.0 08/26/16 11:30 36.6 84 18 140/66 99 3.0 08/26/16 11:00 36.6 92 18 149/55 95 3.0 Lab Results: Results Past 24 Hours Test 08/26/16 11:26 08/26/16 13:22 08/26/16 16:16 08/26/16 18:30 Range/Units Bedside Glucose 180 189 70-90 mg/dl Hemoglobin 8.8 9.1 12.0-16.0 g/dL Hematocrit 29.2 29.1 37-47 % Test 08/26/16 19:58 08/27/16 06:34 08/27/16 07:43 Range/Units Bedside Glucose 196 160 70-90 mg/dl White Blood Count 9.74 4.8-10.8 K/uL Red Blood Count 3.59 4.2-5.4 M/uL Hemoglobin 8.7 12.0-16.0 g/dL Hematocrit 28.9 37-47 % Mean Corpuscular Volume 80.5 80-100 fL Mean Corpuscular Hemoglobin 24.2 25-34 pg Mean Corpuscular Hemoglobin Concent 30.1 32-36 g/dl Platelet Count 352 130-400 K/uL Mean Platelet Volume 9.2 7.4-10.4 fL Neutrophils (%) (Auto) 71.1 % Lymphocytes (%) (Auto) 12.9 % Monocytes (%) (Auto) 13.7 % Eosinophils (%) (Auto) 1.7 % Basophils (%) (Auto) 0.5 % Neutrophils # (Auto) 6.92 1.4-6.5 K/uL Lymphocytes # (Auto) 1.26 1.2-3.4 K/uL Monocytes # (Auto) 1.33 0.11-0.59 K/uL Eosinophils # (Auto) 0.17 0-0.5 K/uL Basophils # (Auto) 0.05 0-0.2 K/uL RDW Standard Deviation 51.2 36.4-46.3 fL RDW Coefficient of Variation 17.5 11.5-14.5 % Immature Granulocyte % (Auto) 0.1 % Immature Granulocyte # (Auto) 0.01 0.00-0.02 K/uL Polychromasia 1+ Hypochromasia PRESENT Microcytosis PRESENT Sodium Level 139 136-145 mmol/L Potassium Level 4.6 3.5-5.1 mmol/L Chloride Level 101 98-107 mmol/L Carbon Dioxide Level 33 21-32 mmol/L Anion Gap 5.0 3-11 mmol/L Blood Urea Nitrogen 41 7-18 mg/dl Creatinine 1.80 0.60-1.20 mg/dl Est Creatinine Clear Calc Drug Dose 31.6 ml/min Estimated GFR () 31.8 Estimated GFR (Non- 27.4 BUN/Creatinine Ratio 23.0 10-20 Random Glucose 160 70-99 mg/dl Calcium Level 8.7 8.5-10.1 mg/dl
[2016-08-27] MEDS ORDERED: FUROSEMIDE INJ 40 MG in SYRINGE 0 ML IV ONE (11:15)
[2016-08-27] MEDS ORDERED: MoRPHine SULFATE 2 MG/ML CARP IV PRN (12:45)
--- NOTE | 2016-08-27 13:51 | PROGRESS NOTE ---
DATE: 08/27/2016 SUBJECTIVE: I had the pleasure of seeing Ms. Coy today at her bedside, she was sitting up in a chair having a discussion with her daughters. She states that she has had no overt GI bleeding overnight and states that she is feeling better. She tolerated lunch today though states that her appetite is poor. She denies any hematemesis, melena, hematochezia. She further denies any abdominal pain. REVIEW OF SYSTEMS: Positive for dyspnea on exertion and occasional shortness of breath, though otherwise negative other than pertinent positives listed in the HPI. A total of 10 systems are reviewed. PHYSICAL EXAMINATION: VITAL SIGNS: Includes a temp of 36.9, pulse 90, respirations 18, blood pressure 152/72, pulse ox 94% on 3 liters via nasal cannula. GENERAL: She is alert, oriented x3, cooperative, chronic ill appearing, in no acute distress. HEAD: Normocephalic, atraumatic. EYES: Pupils equally round. Extraocular muscles are intact. ENT: External evaluation of ears and nose are normal. Oropharynx is clear. NECK: Soft and supple. CHEST: Decreased breath sounds bilateral bases. CARDIOVASCULAR SYSTEM: Regular rate and rhythm. ABDOMEN: Soft, nontender, nondistended. Positive bowel sounds. LABORATORY STUDIES: From today include an H\T\H of 8.7 and 28.9. Sodium 139, potassium 4.6, chloride 101, bicarbonate 33, BUN 41, creatinine 1.8 and a blood glucose level of 160. IMPRESSION: A 75-year-old female with multiple medical comorbidities including chronic obstructive pulmonary disease as well as nonalcoholic steatohepatitis cirrhosis with esophageal varices. PLAN: At the present time, I would recommend continuing her on PPI therapy. She has had no overt GI bleeding and has previously refused invasive workup with colonoscopy. Her last EGD was approximately 1 month ago and showed stable small esophageal varices performed by Dr. Russell. I would recommend supportive care. I will follow her clinical course and the [facility] GI team will resume her care tomorrow. Once again, thank you for allowing me to participate in the care of this patient. If you have any further questions, please do not hesitate in contacting me.
[2016-08-27 15:01] VITALS: BP 114/52; PULSE 76; TEMP 37; O2SAT 98
[2016-08-27] MEDS: LATANOPROST 0.005% OP SOLN 2.5 ML BTL OPB SCH (20:48)
[2016-08-27] MEDS: ATORVASTATIN 40 MG TAB PO SCH (20:49)
[2016-08-27 23:49] VITALS: BP 133/64; PULSE 86; TEMP 36.9; O2SAT 94
[2016-08-28] VITALS (9 sets, daily range): BP systolic 105–144; BP diastolic 50–70; PULSE 74–85; TEMP 36.3–37.1; O2SAT 94–98
[2016-08-28 05:37] LABS: BASO % 0.6 %; BASO ABS # 0.06 K/uL (0-0.2); COMPLETE YES; EOS % 2.9 %; HEMATOCRIT 31.2 % (37-47); IG% 0.1 %; LYMPH % 13.5 %; LYMPH ABS # 1.34 K/uL (1.2-3.4); MEAN CELL VOLUME 81.7 fL (80-100); MEAN CORPUSCULAR HEMOGLOBIN 24.3 pg (25-34); MEAN CORPUSCULAR HGB CONC 29.8 g/dl (32-36); MEAN PLATELET VOLUME 9.1 fL (7.4-10.4); MONO % 12.5 %; NEUT % 70.4 %; PLATELET COUNT 358 K/uL (130-400); RED BLOOD COUNT 3.82 M/uL (4.2-5.4); WHITE BLOOD COUNT 9.89 K/uL (4.8-10.8)
[2016-08-28] MEDS: LEVOTHYROXINE 112 MCG TAB PO SCH (05:43)
[2016-08-28 06:09] LABS: BUN/CREATININE RATIO 24.5 (10-20); CREATININE 1.7 mg/dl (0.60-1.20); POTASSIUM 4.2 mmol/L (3.5-5.1)
[2016-08-28] MEDS: INSULIN ASPART 100 UNITS/ML 3 ML PEN SC SCH ×4 (06:30→21:54)
--- NOTE | 2016-08-28 08:02 | DIAGNOSTIC IMAGING REPORT ---
SINGLE VIEW CHEST CLINICAL HISTORY: Follow-up CHF. FINDINGS: An AP, portable, upright chest radiograph is compared to study dated 08/25/2016 and correlated with chest CT dated 06/02/16. The examination is degraded by portable technique, large body habitus, and patient rotation. The heart is enlarged and there is atherosclerotic calcification of the thoracic aorta. There is pulmonary vascular congestion and interstitial edema, not significantly changed from yesterday. There are layering pleural effusions with bibasilar consolidation, left larger than right. No pneumothorax is seen. The skeletal structures are osteopenic. The bony thorax is grossly intact. A left shoulder arthroplasty is in place. IMPRESSION: 1. Cardiomegaly with evidence of congestive failure and interstitial edema. This is similar in appearance to yesterday. 2. Layering pleural effusions and bibasilar consolidation, left larger than right. Electronically signed by: Jose Alejandro Ramos M.D. 08/28/2016 8:00 AM Dictated Date/Time: 08/28/2016 7:59 AM
--- NOTE | 2016-08-28 08:50 | Progress Note ---
Internal Med Progress Note Date of Service: August 28, 2016. Provider Documentation: SUBJECTIVE: Patient still has SOB, but getting back near baseline. Does have chronic dark stools, no change. No hematemesis but had SOB/increased fatigue which brought her to ER. No chest pain, abd pain, diarrhea, fever, chills, cough. No acute bleeding episodes. On 3 L oxygen as at home. OBJECTIVE: Vital Signs-as noted below Exam: General Appearance: no apparent distress; AAOX3 Eyes: Pallor + Neck: supple Respiratory/Chest: no respiratory distress, no accessory muscle use, + decreased breath sounds- chest tightness + B/L- few crackles at bases present Cardiovascular: regular rate, rhythm Abdomen/GI: normal bowel sounds, non tender, soft, + pertinent finding (mildly distended but soft) Extremities/Musculoskelatal: + pertinent finding (trace bilateral lower extremity edema) Skin: + pallor, + pertinent finding (chronic venous stasis changes with erythema of bilateral lower legs) Lab data as noted below. ASSESSMENT & PLAN: ASSESSMENT & PLAN : SYMPTOMATIC ACUTE ON CHRONIC ANEMIA, Likely Chronic GI blood loss : Presented with increasing SOB, lightheadedness, generalized weakness, likely secondary to anemia in setting of multiple chronic conditions- COPD, B/l Pleural effusion, GRAHAM cirrhosis. Has had multiple admissions in past for similar reason. Last one was last month 07/2016 when she was transfused PRBCs/ EGD was done. Hg is 5.7 on presentation -Likely Upper GI bleeding with hx of GRAHAM Cirrhosis, Portal HT, Varices. 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 Recent EGD last month 07/17/2016- small esophageal varices, no other source of bleeding identified. -Transfused 3 units of PRBCs so far with dose of IV Lasix 60 mg which improved symptoms--> Hb 9.3 today -S/P Protonix drip --> Protonix 40 mg IV BID -Dental cut soft diet + tolerating it well -Monitor H & H. -GI on board. No plans for any further intervention. Colonoscopy to be done outpatient as planned during last admission per Case WORSENING SOB : Improved [place] a bit more SOB in spite of Hb up to 8.7 yesterday . Likely secondary to volume overload due to blood transfusions day before. -S/P extra dose of lasix 40 mg x 1 on 08/27/16. Continue with home lasix 40 mg PO BID , aldactone 100 mg daily -Requiring same levels of oxygen -CXR 08/25 - Congestion. CXR 08/26 - No change compared to prior CXR. -Add duonebs QID today as does have some chest tightness NESTOR ON CKD STAGE IV- Improved Creat is 1.7; baseline 1.1-1.3 -S/P IV Lasix x 1 extra dose on 08/27/16. Continue with Lasix 40 mg PO BID. -Monitor renal function while on diuretics GRAHAM CIRRHOSIS with ASCITES: Last paracentesis was on 05/29/16- 100cc chylous appearing fluid, WBC < 500, culture- no growth -Continue with Home lasix 40 mg po bid /Aldactone 100 mg daily as above -Continue with Rifaximin 550 mg PO BID, Colace BID, Miralex daily (Could not tolerate lactulose in past). CHRONIC HYPOXIC RESPIRATORY FAILURE : Currently saturating well on 3 liters NC ( baseline as at home) -Multifactorial: Has underlying COPD, Chronic Bilateral pleural effusions, GRAHAM cirrhosis with portal HTN and ascites, normal EF on 2013 echo -CXR shows resolving Mild pulmonary vascular congestion, Lt basilar opacity likely combination of pleural fluid and LLL atelectasis/ consolidation (CHRONIC CHANGES). No indication of antibiotics as clinically no signs of pneumonia and CXR changes are all chronic. Discontinued IV Rocephin after 24 hours -Had Left thoracentesis on 06/01/16 -- 1.4 L chylous effusion; complicated by small pneumothorax post-procedure H/O HEPATIC ENCEPHALOPATHY Mental status normal- AAOX3 as at baseline Ammonia level-41 -Continue Rifaximin, Dulcolax, Colace. Unable to tolerate lactulose in past DM II Uncontrolled Last A1c: 9.9 02/2016 -GRICEL Conde to be continued -Pharmacy consult placed HYPOTHYROIDISM: -Continue Levothyroxine PAROXYSMAL AFIB currently in NSR; rate controlled -Continue Beta moises -Not on anticoagulated due to anemia/GI bleeding DVT PROPHYLAXIS -SCDs due to hx varices, anemia, GI bleeding CODE STATUS -Full code DISPOSITION : PT/OT ordered Expected discharge home when stable Need to monitor H & H/Respiratory status/Creatinine. Possible discharge in 2-3 days. Updated , Chris on phone on 08/26/16 Vital Signs: Date Time Temp Pulse Resp B/P Pulse Ox O2 Delivery O2 Flow Rate FiO2 08/28/16 07:54 36.7 81 20 105/50 97 08/28/16 00:27 Nasal Cannula 3.0 08/27/16 23:49 36.9 86 18 133/64 94 3.0 08/27/16 19:23 Nasal Cannula 3.0 08/27/16 16:00 Nasal Cannula 3.0 08/27/16 15:01 37.0 76 20 114/52 98 3.0 Lab Results: Results Past 24 Hours Test 08/27/16 11:30 08/27/16 16:28 08/27/16 20:24 08/28/16 05:20 Range/Units Bedside Glucose 242 180 205 70-90 mg/dl White Blood Count 9.89 4.8-10.8 K/uL Red Blood Count 3.82 4.2-5.4 M/uL Hemoglobin 9.3 12.0-16.0 g/dL Hematocrit 31.2 37-47 % Mean Corpuscular Volume 81.7 80-100 fL Mean Corpuscular Hemoglobin 24.3 25-34 pg Mean Corpuscular Hemoglobin Concent 29.8 32-36 g/dl Platelet Count 358 130-400 K/uL Mean Platelet Volume 9.1 7.4-10.4 fL Neutrophils (%) (Auto) 70.4 % Lymphocytes (%) (Auto) 13.5 % Monocytes (%) (Auto) 12.5 % Eosinophils (%) (Auto) 2.9 % Basophils (%) (Auto) 0.6 % Neutrophils # (Auto) 6.95 1.4-6.5 K/uL Lymphocytes # (Auto) 1.34 1.2-3.4 K/uL Monocytes # (Auto) 1.24 0.11-0.59 K/uL Eosinophils # (Auto) 0.29 0-0.5 K/uL Basophils # (Auto) 0.06 0-0.2 K/uL RDW Standard Deviation 53.4 36.4-46.3 fL RDW Coefficient of Variation 17.9 11.5-14.5 % Immature Granulocyte % (Auto) 0.1 % Immature Granulocyte # (Auto) 0.01 0.00-0.02 K/uL Sodium Level 140 136-145 mmol/L Potassium Level 4.2 3.5-5.1 mmol/L Chloride Level 100 98-107 mmol/L Carbon Dioxide Level 37 21-32 mmol/L Anion Gap 3.0 3-11 mmol/L Blood Urea Nitrogen 42 7-18 mg/dl Creatinine 1.70 0.60-1.20 mg/dl Est Creatinine Clear Calc Drug Dose 33.5 ml/min Estimated GFR () 34.1 Estimated GFR (Non- 29.4 BUN/Creatinine Ratio 24.5 10-20 Random Glucose 200 70-99 mg/dl Calcium Level 9.0 8.5-10.1 mg/dl Test 08/28/16 07:09 Range/Units Bedside Glucose 179 70-90 mg/dl
--- NOTE | 2016-08-28 09:01 | Gastroenterology Progress Note ---
Progress Note Date of Service: August 28, 2016 Subjective Pt evaluation today including: conversation w/ patient, physical exam, chart review, lab review Pt was seen and examined this AM. She was followed by Dr. Damico over the weekend. There was progressive worsening SOB starting Sunday with increased fatigue. She has a history of chronic intermittent dark stools - she tells me she has not noticed any change in frequency or appearance of black/bloody stools. There was self report of maroon colored stools prior to admission. Since admission, she feels 20% improved. There is persisting SOB and fatigue. Denies any fever, chills, chest pain, abdominal pain or other concerns. No confusion. Has been doing more at home recently because is at a rehab hospital. Chest XR 08/28/16: Cardiomegaly with evidence of congestive failure and interstitial edema. This is similar in appearance to yesterday. Layering pleural effusions and bibasilar consolidation, left larger than right. Colonoscopy 11/02/15: One 1 mm polyp in the cecum. Resected and retrieved. Clip was placed. One 2 mm polyp in the transverse colon. Resected and retrieved. Clip was placed.Diverticulosis in the sigmoid colon. Medium-sized lipoma in the ascending colon. Small AVM's in cecum. Tattoo in ascending colon. EGD 07/17/16: Grade I, small (< 5 mm) esophageal varices.Normal stomach. Normal examined duodenum. No specimens collected Review of Systems Constitutional: No chills, No fever Respiratory: + shortness of breath, No cough Cardiac: No chest pain, No edema Abdomen: + GI bleeding (chronic dark stools, hx of marroon colored stools), No constipation, No diarrhea, No nausea, No pain, No vomiting Medications Current Inpatient Medications Medications (Trade) Dose Ordered Sig/Virgil Route Start Time Stop Time Status Last Admin Dose Admin Ipratropium [place] (Atrovent 0.02% 0.5MG/2.5ML Neb) 0.5 mg Q4H PRN INH 08/26/16 00:15 09/25/16 00:14 Levalbuterol (Xopenex 1.25MG/ 0.5ML Neb) 1.25 mg Q4H PRN INH 08/26/16 00:15 09/25/16 00:14 Acetaminophen (Tylenol Tab) 325 mg Q6H PRN PO 08/26/16 00:15 09/25/16 00:14 Nitroglycerin (Nitrostat Tab) 0.4 mg UD PRN SL 08/26/16 00:15 09/25/16 00:14 Insulin Aspart (novoLOG ASPART) SLIDING SCALE If C... ACHS SC 08/26/16 06:45 09/25/16 06:59 08/27/16 20:55 1 UNITS Glucose (Glucose 40% Gel) 15-30 GRAMS 15 GRAMS... UD PRN PO 08/26/16 00:15 09/25/16 00:14 Glucose (Glucose Chew Tab) 4-8 Tablets 4 Tabl... UD PRN PO 08/26/16 00:15 09/25/16 00:14 Dextrose (Dextrose 50% 50ML Syringe) 25-50ML OF 50% DW IV FOR... UD PRN IV 08/26/16 00:15 09/25/16 00:14 Glucagon (Glucagon Inj) 1 mg UD PRN SQ 08/26/16 00:15 09/25/16 00:14 Ondansetron HCl (Zofran Inj) 4 mg Q6H PRN IV 08/26/16 00:15 09/25/16 00:14 Atorvastatin Calcium (Lipitor Tab) 80 mg QPM PO 08/26/16 21:00 09/25/16 20:59 08/27/16 20:49 80 MG Docusate Sodium (coLACE CAP) 100 mg BID PO 08/26/16 09:00 09/25/16 08:59 08/27/16 20:49 100 MG Furosemide (Lasix Tab) 40 mg BID17 PO 08/26/16 09:00 09/25/16 08:59 08/27/16 17:11 40 MG Latanoprost (Xalatan Oph Soln) 1 drops HS OPB 08/26/16 21:00 09/25/16 20:59 08/27/16 20:48 1 DROPS Levothyroxine Sodium (Synthroid Tab) 112 mcg DAILYBB PO 08/26/16 06:00 09/25/16 06:59 08/28/16 05:43 112 MCG Metoprolol Succinate (Toprol Xl Tab) 25 mg BID PO 08/26/16 09:00 09/25/16 08:59 08/27/16 20:49 25 MG Polyethylene (Miralax Powder Packet) 17 gm DAILY PO 08/26/16 09:00 09/25/16 08:59 08/27/16 08:09 17 GM Rifaximin (Xifaxan Tab) 550 mg BID PO 08/26/16 09:00 09/25/16 08:59 08/27/16 20:50 550 MG Spironolactone (Aldactone Tab) 100 mg QAM PO 08/26/16 09:00 09/25/16 08:59 08/27/16 08:06 100 MG Venlafaxine HCl (effeXOR TAB) 100 mg DAILY PO 08/26/16 09:00 09/25/16 08:59 08/27/16 08:08 100 MG Oxycodone HCl 5 mg 5 mg Q6H PRN PO 08/26/16 03:15 09/09/16 03:14 Pantoprazole Sodium/Syringe (Protonix Inj/ Syringe) 10 ml @ 5 mls/min DAILY@ IV 08/26/16 21:00 09/25/16 20:59 08/27/16 20:48 5 MLS/MIN Insulin Glargine (Lantus Solostar Pen) 10 unit BID SC 08/26/16 21:00 09/25/16 20:59 08/27/16 20:56 10 UNIT Morphine Sulfate (MoRPHine SULFATE INJ) 2 mg Q6H PRN IV 08/27/16 12:45 09/10/16 12:44 Objective Vital Signs Date Time Temp Pulse Resp B/P Pulse Ox O2 Delivery O2 Flow Rate FiO2 08/28/16 07:54 36.7 81 20 105/50 97 08/28/16 00:27 Nasal Cannula 3.0 08/27/16 23:49 36.9 86 18 133/64 94 3.0 08/27/16 19:23 Nasal Cannula 3.0 08/27/16 16:00 Nasal Cannula 3.0 08/27/16 15:01 37.0 76 20 114/52 98 3.0 Physical Exam General Appearance: no apparent distress (she is OOB in chair, wearing O2) Eyes: PERRL ENT: hearing grossly normal Neck: supple Respiratory/Chest: no respiratory distress, no accessory muscle use, + decreased breath sounds, + crackles Cardiovascular: regular rate, rhythm Abdomen: normal bowel sounds, non tender, soft, no organomegaly, no pulsatile mass Neurologic/Psych: alert, normal mood/affect, oriented x 3 Skin: normal color Laboratory Results Last 24 Hours Test 08/27/16 11:30 08/27/16 16:28 08/27/16 20:24 08/28/16 05:20 Bedside Glucose 242 mg/dl 180 mg/dl 205 mg/dl White Blood Count 9.89 K/uL Red Blood Count 3.82 M/uL Hemoglobin 9.3 g/dL Hematocrit 31.2 % Mean Corpuscular Volume 81.7 fL Mean Corpuscular Hemoglobin 24.3 pg Mean Corpuscular Hemoglobin Concent 29.8 g/dl Platelet Count 358 K/uL Mean Platelet Volume 9.1 fL Neutrophils (%) (Auto) 70.4 % Lymphocytes (%) (Auto) 13.5 % Monocytes (%) (Auto) 12.5 % Eosinophils (%) (Auto) 2.9 % Basophils (%) (Auto) 0.6 % Neutrophils # (Auto) 6.95 K/uL Lymphocytes # (Auto) 1.34 K/uL Monocytes # (Auto) 1.24 K/uL Eosinophils # (Auto) 0.29 K/uL Basophils # (Auto) 0.06 K/uL RDW Standard Deviation 53.4 fL RDW Coefficient of Variation 17.9 % Immature Granulocyte % (Auto) 0.1 % Immature Granulocyte # (Auto) 0.01 K/uL Sodium Level 140 mmol/L Potassium Level 4.2 mmol/L Chloride Level 100 mmol/L Carbon Dioxide Level 37 mmol/L Anion Gap 3.0 mmol/L Blood Urea Nitrogen 42 mg/dl Creatinine 1.70 mg/dl Est Creatinine Clear Calc Drug Dose 33.5 ml/min Estimated GFR () 34.1 Estimated GFR (Non- 29.4 BUN/Creatinine Ratio 24.5 Random Glucose 200 mg/dl Calcium Level 9.0 mg/dl Test 08/28/16 07:09 Bedside Glucose 179 mg/dl Assessment and Plan A 75-year-old female with history of nonalcoholic steatohepatitis cirrhosis with esophageal varices, stable on EGD last month and a colonoscopy within the past year which showed some cecal AVMs. Currently without overt gastrointestinal bleeding. Still having worsening SOB and fatigue. Continue supportive care Outpatient dosing of GI medications Xifaxan 550 BID Lasix 40 BID Spironolactone 100 daily Urine sodium Albumin 25% 25g once daily Consider midodrine pending urine NA IV PPI BID while admitted Monitor s/s of GI blood loss Trend H&H Transfuse as needed Will need a repeat colonoscopy when patient is agreeable and respiratory status is optimized. She is SOB with conversation which appears to be more significant than on prior admissions. Attg addendum: I interviewed and examined pt, reviewed chart and labs. Pt admit with anemia, likely due to occult GI blood loss and increased SOB from worsening pleural effusions. Her anemia is resolved; her issue at present is SOB from worsening pleural effusions and increased creat from baseline. Her pleural effusions may be from cirrhosis or CHF, from anemia. I am hoping to diurese her fluid off, although pace of diuresis may be limited by renal insufficiency. Will increase lasix and add albumin. Will request chest CT to quantify fluid, and uls to look for PVT.
[2016-08-28] MEDS: VENLAFAXINE HCL 50 MG TAB PO SCH (09:03)
[2016-08-28] MEDS: FUROSEMIDE 40 MG TAB PO SCH ×2 (09:03→16:54)
[2016-08-28] MEDS: PANTOprazole INJ 40 MG in SYRINGE 0 ML IV SCH ×2 (09:04→21:47)
[2016-08-28] MEDS: SPIRONOLACTONE 100 MG TAB PO SCH (09:04)
[2016-08-28] MEDS: DOCUSATE SODIUM 100 MG CAP PO SCH ×2 (09:04→21:48)
[2016-08-28] MEDS: INSULIN GLARGINE SOLOSTAR 100 UNITS/ML 3 ML PEN SC SCH ×2 (09:05→21:54)
[2016-08-28] MEDS: METOPROLOL SUCC 25MG EXT REL TAB PO SCH ×2 (09:05→21:49)
[2016-08-28] MEDS: POLYETHYLENE (MIRALAX) 17 GM PACK PO SCH (09:10)
[2016-08-28] MEDS: RIFAXIMIN TAB 550 MG TAB PO SCH ×2 (09:10→21:48)
[2016-08-28] MEDS: ALBUMIN HUMAN 25% 12.5 GM/50 ML VIAL IV SCH ×2 (13:11→14:25)
--- NOTE | 2016-08-28 16:07 | DIAGNOSTIC IMAGING REPORT ---
CHEST CT WITHOUT CONTRAST CT DOSE: 467.85 mGy.cm HISTORY: bilateral pleural effusion TECHNIQUE: Multiaxial CT images of the chest were performed without contrast. COMPARISON: Chest CT 06/02/2016. FINDINGS: No pneumothorax. Mild interlobular septal thickening suggestive of mild congestive change. Small right pleural effusion and a moderate left pleural effusion have slightly increased in size. Bilateral lower lobe consolidation persists. Mild mediastinal lymphadenopathy remains unchanged. Dominant prevascular lymph node measures 12 mm. Normal caliber thoracic aorta. Coronary artery calcifications. The heart is normal in size. Small amount of perihepatic ascites. Cirrhotic liver. Left total shoulder arthroplasty. IMPRESSION: 1. Slight increase in size in the small right and moderate left pleural effusions. 2. Bilateral lower lobe consolidation which favors compressive atelectasis. However, a pneumonia could also have a similar appearance. This is similar to the prior study. 3. No significant change in the mild mediastinal lymphadenopathy. 4. Mild interlobular septal thickening. This may represent mild congestive change. Electronically signed by: Armando Dunbar M.D. 08/28/2016 4:05 PM Dictated Date/Time: 08/28/2016 4:00 PM
--- NOTE | 2016-08-28 16:36 | DIAGNOSTIC IMAGING REPORT ---
Duplex abdominal Doppler DUPLEX PORTAL HEPATIC VEINS CLINICAL HISTORY: GRAHAM cirrhosis cirrhosis TECHNIQUE: Doppler COMPARISON STUDY: None FINDINGS: Retrograde flow in the splenic vein. Antegrade flow in all remaining venous structures. IMPRESSION: Retrograde flow in the splenic vein. Antegrade flow in all remaining venous structures. No evidence for thrombosis. Electronically signed by: Steve Caicedo M.D. 08/28/2016 4:34 PM Dictated Date/Time: 08/28/2016 4:33 PM
--- NOTE | 2016-08-28 16:37 | DIAGNOSTIC IMAGING REPORT ---
Right upper quadrant ultrasound (LIVER) ABDOMEN LIMITED CLINICAL HISTORY: GRAHAM cirrhosis hepatic cirrhosis TECHNIQUE: Ultrasound COMPARISON STUDY: None FINDINGS: Trace amount of abdominal and pelvic ascites. Hepatic cirrhosis. Gallstones within the gallbladder lumen. Normal caliber biliary ductal system. Right kidney is negative for hydronephrosis. IMPRESSION: 1. Hepatic cirrhosis. 2. Trace ascites. 3. Gallstones. 4. Normal caliber bile ducts. Electronically signed by: Steve Caicedo M.D. 08/28/2016 4:36 PM Dictated Date/Time: 08/28/2016 4:35 PM
[2016-08-28] MEDS: ALBUT/IPRATROP 3MG/0.5MG NEB 3 ML VIAL INH SCH (20:17)
[2016-08-28] MEDS: LATANOPROST 0.005% OP SOLN 2.5 ML BTL OPB SCH (21:47)
[2016-08-28] MEDS: ATORVASTATIN 40 MG TAB PO SCH (21:48)
[2016-08-29] VITALS (9 sets, daily range): BP systolic 124–147; BP diastolic 46–66; PULSE 81–109; TEMP 36.6–36.9; O2SAT 93–96
[2016-08-29] MEDS: LEVOTHYROXINE 112 MCG TAB PO SCH (05:41)
[2016-08-29 05:53] LABS: BASO % 0.5 %; BASO ABS # 0.05 K/uL (0-0.2); EOS % 4.1 %; HEMATOCRIT 29.3 % (37-47); IG% 0.2 %; LYMPH % 11.8 %; LYMPH ABS # 1.11 K/uL (1.2-3.4); MEAN CELL VOLUME 82.8 fL (80-100); MEAN CORPUSCULAR HEMOGLOBIN 24.9 pg (25-34); MEAN PLATELET VOLUME 9.3 fL (7.4-10.4); MONO % 12.7 %; NEUT % 70.7 %; PLATELET COUNT 324 K/uL (130-400); RED BLOOD COUNT 3.54 M/uL (4.2-5.4)
[2016-08-29 06:15] LABS: COMPLETE YES; HYPOCHROMIA PRESENT; POLYCHROMASIA 1+
[2016-08-29 06:34] LABS: BUN/CREATININE RATIO 25.1 (10-20); CALCIUM 8.8 mg/dl (8.5-10.1); CREATININE 1.5 mg/dl (0.60-1.20); POTASSIUM 4.5 mmol/L (3.5-5.1)
[2016-08-29] MEDS: ALBUT/IPRATROP 3MG/0.5MG NEB 3 ML VIAL INH SCH ×4 (06:57→19:25)
[2016-08-29] MEDS: DOCUSATE SODIUM 100 MG CAP PO SCH ×2 (08:24→20:31)
[2016-08-29] MEDS: SPIRONOLACTONE 100 MG TAB PO SCH (08:24)
[2016-08-29] MEDS: PANTOprazole INJ 40 MG in SYRINGE 0 ML IV SCH (08:24)
[2016-08-29] MEDS: METOPROLOL SUCC 25MG EXT REL TAB PO SCH ×2 (08:25→20:40)
[2016-08-29] MEDS: FUROSEMIDE 40 MG TAB PO SCH (08:25)
[2016-08-29] MEDS: VENLAFAXINE HCL 50 MG TAB PO SCH (08:25)
[2016-08-29] MEDS: POLYETHYLENE (MIRALAX) 17 GM PACK PO SCH (08:26)
[2016-08-29] MEDS: INSULIN ASPART 100 UNITS/ML 3 ML PEN SC SCH ×4 (08:29→20:36)
[2016-08-29] MEDS: INSULIN GLARGINE SOLOSTAR 100 UNITS/ML 3 ML PEN SC SCH ×2 (08:30→20:34)
[2016-08-29] MEDS: RIFAXIMIN TAB 550 MG TAB PO SCH ×2 (08:46→20:32)
[2016-08-29] MEDS ORDERED: FUROSEMIDE 20 MG TAB PO SCH (09:00)
--- NOTE | 2016-08-29 09:16 | Gastroenterology Progress Note ---
Progress Note Date of Service: August 29, 2016 Subjective Pt evaluation today including: conversation w/ patient, conversation w/ family , physical exam, chart review Pt was seen and evaluated this AM. She was not wearing her O2 because "she is not SOB at rest." No acute events overnight. She feels well. No abdominal pain. No black/bloody stools. One BM overnight - this was brown/green per pt. No change in her SOB. She still is not agreeable to a colonoscopy - but is thinking she will end up getting one. She is anxious to go home as her is being discharged today as well. CT chest 08/28/16: 1. Slight increase in size in the small right and moderate left pleural effusions. Bilateral lower lobe consolidation which favors compressive atelectasis. However, a pneumonia could also have a similar appearance. This is similar to the prior study. No significant change in the mild mediastinal lymphadenopathy. Mild interlobular septal thickening. This may represent mild congestive change. RUQ US 08/28/16: Trace amount of abdominal and pelvic ascites. Hepatic cirrhosis. Gallstones within the gallbladder lumen. Normal caliber biliary ductal system. Right kidney is negative for hydronephrosis. Liver Duplex 08/28/16: Retrograde flow in the splenic vein. Antegrade flow in all remaining venous structures. No evidence for thrombosis. Review of Systems Constitutional: No chills, No fever Respiratory: + shortness of breath (w/ talking and movement), No cough Cardiac: No chest pain, No edema Abdomen: No GI bleeding, No constipation, No diarrhea, No nausea, No pain, No vomiting Medications Current Inpatient Medications Medications (Trade) Dose Ordered Sig/Virgil Route Start Time Stop Time Status Last Admin Dose Admin Ipratropium [place] (Atrovent 0.02% 0.5MG/2.5ML Neb) 0.5 mg Q4H PRN INH 08/26/16 00:15 09/25/16 00:14 Levalbuterol (Xopenex 1.25MG/ 0.5ML Neb) 1.25 mg Q4H PRN INH 08/26/16 00:15 09/25/16 00:14 Acetaminophen (Tylenol Tab) 325 mg Q6H PRN PO 08/26/16 00:15 09/25/16 00:14 Nitroglycerin (Nitrostat Tab) 0.4 mg UD PRN SL 08/26/16 00:15 09/25/16 00:14 Insulin Aspart (novoLOG ASPART) SLIDING SCALE If C... ACHS SC 08/26/16 06:45 09/25/16 06:59 08/29/16 08:29 1 UNITS Glucose (Glucose 40% Gel) 15-30 GRAMS 15 GRAMS... UD PRN PO 08/26/16 00:15 09/25/16 00:14 Glucose (Glucose Chew Tab) 4-8 Tablets 4 Tabl... UD PRN PO 08/26/16 00:15 09/25/16 00:14 Dextrose (Dextrose 50% 50ML Syringe) 25-50ML OF 50% DW IV FOR... UD PRN IV 08/26/16 00:15 09/25/16 00:14 Glucagon (Glucagon Inj) 1 mg UD PRN SQ 08/26/16 00:15 09/25/16 00:14 Ondansetron HCl (Zofran Inj) 4 mg Q6H PRN IV 08/26/16 00:15 09/25/16 00:14 Atorvastatin Calcium (Lipitor Tab) 80 mg QPM PO 08/26/16 21:00 09/25/16 20:59 08/28/16 21:48 80 MG Docusate Sodium (coLACE CAP) 100 mg BID PO 08/26/16 09:00 09/25/16 08:59 08/29/16 08:24 100 MG Furosemide (Lasix Tab) 40 mg BID17 PO 08/26/16 09:00 09/25/16 08:59 08/29/16 08:25 40 MG Latanoprost (Xalatan Oph Soln) 1 drops HS OPB 08/26/16 21:00 09/25/16 20:59 08/28/16 21:47 1 DROPS Levothyroxine Sodium (Synthroid Tab) 112 mcg DAILYBB PO 08/26/16 06:00 09/25/16 06:59 08/29/16 05:41 112 MCG Metoprolol Succinate (Toprol Xl Tab) 25 mg BID PO 08/26/16 09:00 09/25/16 08:59 08/29/16 08:25 25 MG Polyethylene (Miralax Powder Packet) 17 gm DAILY PO 08/26/16 09:00 09/25/16 08:59 08/29/16 08:26 17 GM Rifaximin (Xifaxan Tab) 550 mg BID PO 08/26/16 09:00 09/25/16 08:59 08/29/16 08:46 550 MG Spironolactone (Aldactone Tab) 100 mg QAM PO 08/26/16 09:00 09/25/16 08:59 08/29/16 08:24 100 MG Venlafaxine HCl (effeXOR TAB) 100 mg DAILY PO 08/26/16 09:00 09/25/16 08:59 08/29/16 08:25 100 MG Oxycodone HCl 5 mg 5 mg Q6H PRN PO 08/26/16 03:15 09/09/16 03:14 Pantoprazole Sodium/Syringe (Protonix Inj/ Syringe) 10 ml @ 5 mls/min DAILY@09,21 IV 08/26/16 21:00 09/25/16 20:59 08/29/16 08:24 5 MLS/MIN Insulin Glargine (Lantus Solostar Pen) 10 unit BID SC 08/26/16 21:00 09/25/16 20:59 08/29/16 08:30 10 UNIT Morphine Sulfate (MoRPHine SULFATE INJ) 2 mg Q6H PRN IV 08/27/16 12:45 09/10/16 12:44 Albuterol/ Ipratropium (Duoneb) 3 ml QIDR INH 08/28/16 12:00 09/27/16 11:59 08/29/16 06:57 3 ML Albumin Human (Albumin 25%) 12.5 gm DAILY@1300,1400 IV 08/28/16 13:00 08/31/16 12:59 08/28/16 14:25 12.5 GM Furosemide (Lasix Tab) 20 mg QAM PO 08/29/16 09:00 09/01/16 08:59 08/29/16 08:33 20 MG Objective Vital Signs Date Time Temp Pulse Resp B/P Pulse Ox O2 Delivery O2 Flow Rate FiO2 08/29/16 07:41 36.8 85 17 127/66 96 Nasal Cannula 2.0 08/29/16 06:57 83 18 95 Nasal Cannula 08/29/16 00:58 Nasal Cannula 3.0 08/29/16 00:45 36.6 89 18 137/63 93 Nasal Cannula 3.0 08/28/16 20:18 78 18 94 Room Air 08/28/16 20:14 Nasal Cannula 3.0 08/28/16 16:30 Nasal Cannula 3.0 08/28/16 15:57 36.3 82 18 144/69 97 Nasal Cannula 3.0 08/28/16 15:12 36.6 80 20 118/63 97 08/28/16 14:45 36.8 76 18 124/70 97 Nasal Cannula 3.0 08/28/16 14:30 36.9 74 20 114/66 97 Nasal Cannula 3.0 08/28/16 14:10 37.0 79 20 134/66 96 Nasal Cannula 3.0 08/28/16 13:25 37.1 85 18 124/61 97 Nasal Cannula 3.0 08/28/16 13:10 36.9 80 18 120/58 98 Nasal Cannula 3.0 Physical Exam General Appearance: no apparent distress (pt is OOB in chair, not wearing O2 - it was suggested that she wears her O2) Eyes: PERRL ENT: hearing grossly normal Neck: supple Respiratory/Chest: lungs clear, no respiratory distress, no accessory muscle use, + decreased breath sounds (diminished at bases) Cardiovascular: regular rate, rhythm Abdomen: normal bowel sounds, non tender, soft, no organomegaly, no pulsatile mass Neurologic/Psych: alert, normal mood/affect, oriented x 3 Skin: normal color, no jaundice, warm/dry, no rash Laboratory Results Last 24 Hours Test 08/28/16 11:20 08/28/16 16:42 08/28/16 21:22 08/29/16 05:30 Bedside Glucose 283 mg/dl 202 mg/dl 243 mg/dl White Blood Count 9.40 K/uL Red Blood Count 3.54 M/uL Hemoglobin 8.8 g/dL Hematocrit 29.3 % Mean Corpuscular Volume 82.8 fL Mean Corpuscular Hemoglobin 24.9 pg Mean Corpuscular Hemoglobin Concent 30.0 g/dl Platelet Count 324 K/uL Mean Platelet Volume 9.3 fL Neutrophils (%) (Auto) 70.7 % Lymphocytes (%) (Auto) 11.8 % Monocytes (%) (Auto) 12.7 % Eosinophils (%) (Auto) 4.1 % Basophils (%) (Auto) 0.5 % Neutrophils # (Auto) 6.64 K/uL Lymphocytes # (Auto) 1.11 K/uL Monocytes # (Auto) 1.19 K/uL Eosinophils # (Auto) 0.39 K/uL Basophils # (Auto) 0.05 K/uL RDW Standard Deviation 54.3 fL RDW Coefficient of Variation 18.0 % Immature Granulocyte % (Auto) 0.2 % Immature Granulocyte # (Auto) 0.02 K/uL Polychromasia 1+ Hypochromasia PRESENT Sodium Level 139 mmol/L Potassium Level 4.5 mmol/L Chloride Level 100 mmol/L Carbon Dioxide Level 35 mmol/L Anion Gap 4.0 mmol/L Blood Urea Nitrogen 38 mg/dl Creatinine 1.50 mg/dl Est Creatinine Clear Calc Drug Dose 37.9 ml/min Estimated GFR () 39.6 Estimated GFR (Non- 34.2 BUN/Creatinine Ratio 25.1 Random Glucose 215 mg/dl Calcium Level 8.8 mg/dl Test 08/29/16 07:34 Bedside Glucose 229 mg/dl Assessment and Plan A 75-year-old female with history of nonalcoholic steatohepatitis cirrhosis with esophageal varices, stable on EGD last month and a colonoscopy within the past year which showed some cecal AVMs. Currently without overt gastrointestinal bleeding. Still having worsening SOB and fatigue. Continue supportive care Outpatient dosing of GI medications Xifaxan 550 BID Spironolactone 100 daily Inpatient dosing of GI medications IV lasix 40 mg BID Urine sodium Albumin 25% 25g BID daily Consider midodrine pending urine NA PPI BID while admitted Monitor s/s of GI blood loss Trend H&H Transfuse as needed Attg addendum: I interviewed and examined pt, reviewed chart and labs. Pt appears much improved. I reviewed her imaging with shows a mild increase in her Right pleural effusion. 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 I would consider repeat inpt cscopy, given her accelerated transfusion requirement as well. Will need a repeat colonoscopy when patient is agreeable and respiratory status is optimized. She is SOB with conversation which appears to be more significant than on prior admissions. Consider pulmonary consult if SOB persists despite albumin and increased Lasix.
--- NOTE | 2016-08-29 18:18 | Progress Note ---
Internal Med Progress Note Date of Service: August 29, 2016. Provider Documentation: SUBJECTIVE: sitting on the chair comfortably sister in the room sob is better no black stools no abdominal pain afebrile OBJECTIVE: Vital Signs-as noted below Exam: General-alert and awake and oriented x 3. ENT-Normal hearing Neck-no neck masses Lungs-cta b/l no wheezing or crackles Heart-s1 and s2 heard regular rate and rhythm no murmurs Abdomen-soft bowel sounds present non tender no distension Extremities- no present no erythema Neuro-alert and awake oriented moves extremities Lab data as noted below. ASSESSMENT & PLAN: SYMPTOMATIC ACUTE ON CHRONIC ANEMIA, Likely Chronic GI blood loss : As per and P: Presented with increasing SOB, lightheadedness, generalized weakness, likely secondary to anemia in setting of multiple chronic conditions- COPD, B/l Pleural effusion, GRAHAM cirrhosis. Has had multiple admissions in past for similar reason. Last one was last month 07/2016 when she was transfused PRBCs /EGD was done. Hg is 5.7 on presentation Most Likely Upper GI bleeding with hx of GRAHAM Cirrhosis, Portal HT, Varices. 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 Recent EGD last month 07/17/2016- small esophageal varices, no other source of bleeding identified. s/p 3 units of PRBCs so far with dose of IV Lasix 60 mg which improved symptoms --> Hb 8.8 today was on Protonix drip . Currently on Protonix 40 mg IV BID Dental cut soft diet + tolerating it well GI on board. No plans for any further intervention. Colonoscopy to be done outpatient. WORSENING SOB : Mostlikely from volume overload from prbc transfusion which improved with iv lasix also has pleural effusions Left > right currently on albumin and Lasix dose increased will consider pulmonary consult. NESTOR ON CKD STAGE IV- Improved baseline 1.1-1.3 cr 1.5 today will f/u labs while pt on diuretics. GRAHAM CIRRHOSIS with ASCITES: Last paracentesis was on 05/29/16- 100cc chylous appearing fluid, WBC < 500, culture- no growth currently on lasix 60mg in am and 40mg in pm and Aldactone 100 mg daily On Rifaximin 550 mg PO BID, Colace BID, Miralex daily (Could not tolerate lactulose in past). CHRONIC HYPOXIC RESPIRATORY FAILURE : Currently saturating well on 3 liters NC ( baseline as at home) Multifactorial: Underlying COPD, Chronic Bilateral pleural effusions, GRAHAM cirrhosis with portal HTN and ascites, normal EF on 2013 echo will monitor. H/O HEPATIC ENCEPHALOPATHY Mental status normal- AAOX3 as at baseline Ammonia level-41 On Rifaximin, Dulcolax, Colace. Unable to tolerate lactulose in past DM II Uncontrolled Last A1c: 9.9 02/2016 On -Lantus , ISS to be continued adjusting ISS Pharmacy consult placed HYPOTHYROIDISM: On Levothyroxine PAROXYSMAL AFIB currently in NSR; rate controlled On Beta moises Not on anticoagulated due to anemia/GI bleeding DVT PROPHYLAXIS -SCDs due to hx varices, anemia, GI bleeding CODE STATUS Full code DISPOSITION : PT/OT ordered social service for d/.c planning Vital Signs: Date Time Temp Pulse Resp B/P Pulse Ox O2 Delivery O2 Flow Rate FiO2 08/29/16 16:00 Nasal Cannula 3.0 08/29/16 15:49 81 16 95 Nasal Cannula 2.0 08/29/16 15:11 36.9 97 18 124/61 96 Nasal Cannula 2.0 08/29/16 11:04 85 16 95 Nasal Cannula 08/29/16 08:00 Nasal Cannula 3.0 08/29/16 07:41 36.8 85 17 127/66 96 Nasal Cannula 2.0 08/29/16 06:57 83 18 95 Nasal Cannula 08/29/16 00:58 Nasal Cannula 3.0 08/29/16 00:45 36.6 89 18 137/63 93 Nasal Cannula 3.0 08/28/16 20:18 78 18 94 Room Air 08/28/16 20:14 Nasal Cannula 3.0 Lab Results: Results Past 24 Hours Test 08/28/16 21:22 08/29/16 05:30 08/29/16 07:34 08/29/16 11:21 Range/Units Bedside Glucose 243 229 330 70-90 mg/dl White Blood Count 9.40 4.8-10.8 K/uL Red Blood Count 3.54 4.2-5.4 M/uL Hemoglobin 8.8 12.0-16.0 g/dL Hematocrit 29.3 37-47 % Mean Corpuscular Volume 82.8 80-100 fL Mean Corpuscular Hemoglobin 24.9 25-34 pg Mean Corpuscular Hemoglobin Concent 30.0 32-36 g/dl Platelet Count 324 130-400 K/uL Mean Platelet Volume 9.3 7.4-10.4 fL Neutrophils (%) (Auto) 70.7 % Lymphocytes (%) (Auto) 11.8 % Monocytes (%) (Auto) 12.7 % Eosinophils (%) (Auto) 4.1 % Basophils (%) (Auto) 0.5 % Neutrophils # (Auto) 6.64 1.4-6.5 K/uL Lymphocytes # (Auto) 1.11 1.2-3.4 K/uL Monocytes # (Auto) 1.19 0.11-0.59 K/uL Eosinophils # (Auto) 0.39 0-0.5 K/uL Basophils # (Auto) 0.05 0-0.2 K/uL RDW Standard Deviation 54.3 36.4-46.3 fL RDW Coefficient of Variation 18.0 11.5-14.5 % Immature Granulocyte % (Auto) 0.2 % Immature Granulocyte # (Auto) 0.02 0.00-0.02 K/uL Polychromasia 1+ Hypochromasia PRESENT Sodium Level 139 136-145 mmol/L Potassium Level 4.5 3.5-5.1 mmol/L Chloride Level 100 98-107 mmol/L Carbon Dioxide Level 35 21-32 mmol/L Anion Gap 4.0 3-11 mmol/L Blood Urea Nitrogen 38 7-18 mg/dl Creatinine 1.50 0.60-1.20 mg/dl Est Creatinine Clear Calc Drug Dose 37.9 ml/min Estimated GFR () 39.6 Estimated GFR (Non- 34.2 BUN/Creatinine Ratio 25.1 10-20 Random Glucose 215 70-99 mg/dl Calcium Level 8.8 8.5-10.1 mg/dl
[2016-08-29 19:37] LABS: URINE COLLECTION TIME 24 HOURS; URINE SODIUM 24 HR 103 mmol/24 (40-220)
[2016-08-29] MEDS: ALBUMIN HUMAN 25% 12.5 GM/50 ML VIAL IV SCH (20:28)
[2016-08-29] MEDS: FUROSEMIDE INJ 40 MG in SYRINGE 0 ML IV SCH (20:30)
[2016-08-29] MEDS: ATORVASTATIN 40 MG TAB PO SCH (20:31)
[2016-08-29] MEDS: LATANOPROST 0.005% OP SOLN 2.5 ML BTL OPB SCH (20:31)
[2016-08-29] MEDS: PANTOprazole SOD 40 MG TAB PO SCH (20:32)
[2016-08-30] VITALS (9 sets, daily range): BP systolic 122–156; BP diastolic 51–63; PULSE 85–101; TEMP 35.8–36.7; O2SAT 94–98
[2016-08-30] MEDS: LEVOTHYROXINE 112 MCG TAB PO SCH (05:37)
[2016-08-30 06:41] LABS: BASO % 0.7 %; BASO ABS # 0.06 K/uL (0-0.2); EOS % 4.3 %; HEMATOCRIT 27.3 % (37-47); IG% 0.2 %; LYMPH % 12.7 %; LYMPH ABS # 1.08 K/uL (1.2-3.4); MEAN CORPUSCULAR HEMOGLOBIN 24.6 pg (25-34); MEAN PLATELET VOLUME 9.1 fL (7.4-10.4); MONO % 14.4 %; NEUT % 67.7 %; PLATELET COUNT 322 K/uL (130-400); RED BLOOD COUNT 3.33 M/uL (4.2-5.4); WHITE BLOOD COUNT 8.53 K/uL (4.8-10.8)
[2016-08-30] MEDS: ALBUT/IPRATROP 3MG/0.5MG NEB 3 ML VIAL INH SCH ×4 (06:59→19:33)
[2016-08-30 07:09] LABS: CREATININE 1.4 mg/dl (0.60-1.20); POTASSIUM 4.8 mmol/L (3.5-5.1)
[2016-08-30 07:22] LABS: ANISOCYTOSIS PRESENT; COMPLETE YES; HYPOCHROMIA PRESENT; POLYCHROMASIA 1+
[2016-08-30] MEDS: INSULIN ASPART 100 UNITS/ML 3 ML PEN SC SCH ×4 (07:49→20:47)
[2016-08-30] MEDS: INSULIN GLARGINE SOLOSTAR 100 UNITS/ML 3 ML PEN SC SCH ×2 (07:49→20:47)
[2016-08-30] MEDS: DOCUSATE SODIUM 100 MG CAP PO SCH ×2 (07:56→20:41)
[2016-08-30] MEDS: RIFAXIMIN TAB 550 MG TAB PO SCH ×2 (07:56→20:42)
[2016-08-30] MEDS: POLYETHYLENE (MIRALAX) 17 GM PACK PO SCH (07:56)
[2016-08-30] MEDS: SPIRONOLACTONE 100 MG TAB PO SCH (07:56)
[2016-08-30] MEDS: METOPROLOL SUCC 25MG EXT REL TAB PO SCH ×2 (07:56→20:42)
[2016-08-30] MEDS: PANTOprazole SOD 40 MG TAB PO SCH ×2 (07:56→20:41)
[2016-08-30] MEDS: FUROSEMIDE INJ 40 MG in SYRINGE 0 ML IV SCH ×2 (07:57→20:41)
[2016-08-30] MEDS: VENLAFAXINE HCL 50 MG TAB PO SCH (07:57)
[2016-08-30] MEDS: ALBUMIN HUMAN 25% 12.5 GM/50 ML VIAL IV SCH ×2 (09:05→20:50)
--- NOTE | 2016-08-30 13:04 | Gastroenterology Progress Note ---
Progress Note Date of Service: August 30, 2016 Subjective Pt evaluation today including: conversation w/ patient, physical exam, chart review, lab review, review of inpatient medication list Pt able to walk w PT up to 250m. She admits to have SOB w ambulation, currently on O2 3L NC, doesn't appear dyspnic. She denies any CP, abd pain, n/v. Had BM this AM, denies any signs of GI bleeding, dark tarry stools. Review of Systems Constitutional: No chills, No fever Respiratory: + dyspnea on exertion, + shortness of breath, No cough Cardiac: No chest pain Abdomen: No nausea, No pain, No vomiting Medications Current Inpatient Medications Medications (Trade) Dose Ordered Sig/Virgil Route Start Time Stop Time Status Last Admin Dose Admin Ipratropium [place] (Atrovent 0.02% 0.5MG/2.5ML Neb) 0.5 mg Q4H PRN INH 08/26/16 00:15 09/25/16 00:14 Levalbuterol (Xopenex 1.25MG/ 0.5ML Neb) 1.25 mg Q4H PRN INH 08/26/16 00:15 09/25/16 00:14 Acetaminophen (Tylenol Tab) 325 mg Q6H PRN PO 08/26/16 00:15 09/25/16 00:14 Nitroglycerin (Nitrostat Tab) 0.4 mg UD PRN SL 08/26/16 00:15 09/25/16 00:14 Insulin Aspart (novoLOG ASPART) SLIDING SCALE If C... ACHS SC 08/26/16 06:45 09/27/16 06:44 08/30/16 11:52 11 UNITS Glucose (Glucose 40% Gel) 15-30 GRAMS 15 GRAMS... UD PRN PO 08/26/16 00:15 09/25/16 00:14 Glucose (Glucose Chew Tab) 4-8 Tablets 4 Tabl... UD PRN PO 08/26/16 00:15 09/25/16 00:14 Dextrose (Dextrose 50% 50ML Syringe) 25-50ML OF 50% DW IV FOR... UD PRN IV 08/26/16 00:15 09/25/16 00:14 Glucagon (Glucagon Inj) 1 mg UD PRN SQ 08/26/16 00:15 09/25/16 00:14 Ondansetron HCl (Zofran Inj) 4 mg Q6H PRN IV 08/26/16 00:15 09/25/16 00:14 Atorvastatin Calcium (Lipitor Tab) 80 mg QPM PO 08/26/16 21:00 09/25/16 20:59 08/29/16 20:31 80 MG Docusate Sodium (coLACE CAP) 100 mg BID PO 08/26/16 09:00 09/25/16 08:59 08/30/16 07:56 100 MG Latanoprost (Xalatan Oph Soln) 1 drops HS OPB 08/26/16 21:00 09/25/16 20:59 08/29/16 20:31 1 DROPS Levothyroxine Sodium (Synthroid Tab) 112 mcg DAILYBB PO 08/26/16 06:00 09/25/16 06:59 08/30/16 05:37 112 MCG Metoprolol Succinate (Toprol Xl Tab) 25 mg BID PO 08/26/16 09:00 09/25/16 08:59 08/30/16 07:56 25 MG Polyethylene (Miralax Powder Packet) 17 gm DAILY PO 08/26/16 09:00 09/25/16 08:59 08/30/16 07:56 17 GM Rifaximin (Xifaxan Tab) 550 mg BID PO 08/26/16 09:00 09/25/16 08:59 08/30/16 07:56 550 MG Spironolactone (Aldactone Tab) 100 mg QAM PO 08/26/16 09:00 09/25/16 08:59 08/30/16 07:56 100 MG Venlafaxine HCl (effeXOR TAB) 100 mg DAILY PO 08/26/16 09:00 09/25/16 08:59 08/30/16 07:57 100 MG Oxycodone HCl (Roxicodone Immediate Rel Tab) 5 mg Q6H PRN PO 08/26/16 03:15 09/09/16 03:14 Insulin Glargine (Lantus Solostar Pen) 10 unit BID SC 08/26/16 21:00 09/25/16 20:59 08/30/16 07:49 10 UNIT Morphine Sulfate (MoRPHine SULFATE INJ) 2 mg Q6H PRN IV 08/27/16 12:45 09/10/16 12:44 Albuterol/ Ipratropium (Duoneb) 3 ml QIDR INH 08/28/16 12:00 09/27/16 11:59 08/30/16 11:18 3 ML Albumin Human (Albumin 25%) 25 gm BID IV 08/29/16 21:00 09/01/16 20:59 08/30/16 09:05 25 GM Pantoprazole Sodium 40 mg 40 mg BID PO 08/29/16 21:00 09/28/16 20:59 08/30/16 07:56 40 MG Furosemide 60 mg/ Syringe 6 ml @ 4 mls/min DAILY@0900 IV 08/31/16 09:00 09/30/16 08:59 Furosemide/Syringe (Lasix Inj/ Syringe) 4 ml @ 4 mls/min DAILY@2100 IV 08/30/16 21:00 09/29/16 20:59 Bisacodyl (Dulcolax Tab) 20 mg TODAY@1200 ONCE PO 08/31/16 12:00 08/31/16 12:01 Polyethylene (Miralax Powder Packet) 238 gm TODAY@1200 PO 08/31/16 12:00 08/31/16 17:00 Objective Vital Signs Date Time Temp Pulse Resp B/P Pulse Ox O2 Delivery O2 Flow Rate FiO2 08/30/16 11:18 87 16 98 Nasal Cannula 3.0 08/30/16 09:06 36.7 94 20 122/51 95 Nasal Cannula 3.0 08/30/16 08:00 Nasal Cannula 3.0 08/30/16 07:41 36.6 100 20 131/63 95 Nasal Cannula 3.0 08/30/16 06:59 94 16 95 Nasal Cannula 3.0 08/30/16 00:18 36.6 101 20 135/56 94 Nasal Cannula 3.0 08/30/16 00:00 Nasal Cannula 3.0 08/29/16 21:54 109 22 147/53 95 Nasal Cannula 3.0 08/29/16 20:41 106 20 130/46 95 Nasal Cannula 3.0 08/29/16 20:00 Nasal Cannula 3.0 08/29/16 19:25 86 16 94 Nasal Cannula 2.0 08/29/16 16:00 Nasal Cannula 3.0 08/29/16 15:49 81 16 95 Nasal Cannula 2.0 08/29/16 15:11 36.9 97 18 124/61 96 Nasal Cannula 2.0 Physical Exam General Appearance: WD/WN, no apparent distress Eyes: normal inspection, PERRL, EOMI Neck: supple, no JVD, trachea midline Respiratory/Chest: no respiratory distress, no accessory muscle use, + decreased breath sounds Cardiovascular: regular rate, rhythm, no gallop, no murmur Abdomen: normal bowel sounds, non tender, soft Extremities: normal inspection, no pedal edema, no calf tenderness Neurologic/Psych: alert, normal mood/affect, oriented x 3 Skin: normal color, no jaundice, no rash Laboratory Results Last 24 Hours Test 08/29/16 16:54 08/29/16 18:30 08/29/16 20:21 08/29/16 22:00 Bedside Glucose 338 mg/dl 293 mg/dl Urine Collection Time 24 HOURS Urine Total Volume 1750 mL Urine Sodium mEQ/L 59 meq/L Urine Sodium 24 Hour 103 mmol/24 Urine Random Sodium 89 mEq/L Test 08/30/16 06:15 08/30/16 07:33 08/30/16 11:34 White Blood Count 8.53 K/uL Red Blood Count 3.33 M/uL Hemoglobin 8.2 g/dL Hematocrit 27.3 % Mean Corpuscular Volume 82.0 fL Mean Corpuscular Hemoglobin 24.6 pg Mean Corpuscular Hemoglobin Concent 30.0 g/dl Platelet Count 322 K/uL Mean Platelet Volume 9.1 fL Neutrophils (%) (Auto) 67.7 % Lymphocytes (%) (Auto) 12.7 % Monocytes (%) (Auto) 14.4 % Eosinophils (%) (Auto) 4.3 % Basophils (%) (Auto) 0.7 % Neutrophils # (Auto) 5.77 K/uL Lymphocytes # (Auto) 1.08 K/uL Monocytes # (Auto) 1.23 K/uL Eosinophils # (Auto) 0.37 K/uL Basophils # (Auto) 0.06 K/uL RDW Standard Deviation 55.0 fL RDW Coefficient of Variation 18.6 % Immature Granulocyte % (Auto) 0.2 % Immature Granulocyte # (Auto) 0.02 K/uL Polychromasia 1+ Hypochromasia PRESENT Basophilic Stippling 1+ Anisocytosis PRESENT Sodium Level 139 mmol/L Potassium Level 4.8 mmol/L Chloride Level 100 mmol/L Carbon Dioxide Level 36 mmol/L Anion Gap 3.0 mmol/L Blood Urea Nitrogen 41 mg/dl Creatinine 1.40 mg/dl Est Creatinine Clear Calc Drug Dose 40.6 ml/min Estimated GFR () 43.1 Estimated GFR (Non- 37.2 BUN/Creatinine Ratio 29.0 Random Glucose 217 mg/dl Calcium Level 9.0 mg/dl Bedside Glucose 212 mg/dl 317 mg/dl Assessment and Plan A 75-year-old female with history of GRAHAM cirrhosis. MELD 11. She has hx of esophageal varices, last EGD 1 month ago (grade 1 varices), colonoscopy in 2016 w findings of cecal AVM. She was anemic on admission, Hgb 6, given 3U PRBC, now up to 8.2. She was also having dyspnea, SOB but has evidence of pleural effusion R > L. PLANS: - Xifaxan 550mg BID - Increase Lasix to 60mg IV in AM, 40mg IV in PM. Spironolactone 100mg daily - Continue Albumin 25% 25g BID - CL diet tomorrow, NPO after midnight on 08/31 for colonoscopy eval on 09/01/[address] Trinh. Bowel prep ordered. - Monitor H/H and transfuse prn. Attg addendum: I interviewed and examined pt, reviewed chart and labs. Pt appears improved. WIll cont diuretics and albumin as above, check CXR to look for decrease in pleural effusion, follow creat, plan cscopy later this week to look for colon AVM's.
--- NOTE | 2016-08-30 16:08 | PULMONARY CONSULTATION ---
DATE OF CONSULTATION: 08/30/2016 TIME: 02:25 p.m. HISTORY OF PRESENT ILLNESS: The patient was seen in room 262. She is a 75-year-old female who was admitted to the hospital on August 25 with severe weakness and feeling short of breath. She had had symptoms for about a week before admission. She was lightheaded. She felt very wobbly as she was walking. She was more short of breath than normal. The patient has had a problem with anemia. She feels better since she has had at least 2 blood transfusions during this hospital stay. She had been hospitalized from July 14 through July 20 with pulmonary vascular congestion and anemia at that time as low as 6.0. She had previously been hospitalized back in May. She was in at that time from the until the . She had pleural effusions then. Dr. Perkins did a left thoracentesis during that hospital stay with removal of 1.4 liters. His notes indicate that fluid was chylous. She has a history of cirrhosis associated with portal hypertension and thrombosis. His feeling was that thoracentesis should be avoided unless there are no choices. The patient is winded with any significant exertion. She has mild cough. She has had wheezing. She expectorates a small amount of clear phlegm. She has not coughed up any blood. The patient feels better as noted. The patient is an ex-smoker. She quit smoking about 1989. She smoked less than a pack per day, more like a half a pack on average. She may have smoked 15 or 20 years. She does not drink any alcohol. She has cirrhosis as noted above, which was nonalcohol associated. The patient was told at some point with COPD, but she is not certain if she ever had pulmonary function test. She is not having any chest pains, chills, fevers or sweats. She indicates that she feels quite a bit better. She has been awaiting an evaluation regarding the anemia. Apparently, they are scheduled to do a colonoscopy in the next day or two. PAST MEDICAL HISTORY: 1. COPD. 2. GRAHAM. 3. Portal hypertension and portal vein thrombosis. 4. TIA. 5. Hypothyroidism. 6. Anemia. 7. Reflux. 8. Coronary artery disease. 9. Non-STEMI. 10. Paroxysmal atrial fibrillation. 11. Hyperlipidemia. 12. Diastolic CHF. 13. Bladder cancer. 14. Endometrial cancer. 15. Chronic kidney disease, stage II. 16. Depression. 17. Diabetes. PAST SURGICAL HISTORY: 1. Hysterectomy. 2. Bladder tumor removal. SOCIAL HISTORY: As noted above. ALLERGIES: IRON INFUSIONS. FAMILY HISTORY: Reportedly positive for heart disease. 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 REVIEW OF SYSTEMS: Essentially negative except for the above-mentioned complaints. She states that she does not know where she is losing blood. She denies having seen any blood. The patient has a lot of concerns about her , who is also ill. He currently is in a care home. PHYSICAL EXAMINATION: GENERAL: The patient is a pleasant 75-year-old female, who was cooperative, alert and oriented. She seems mentally sharp. HEENT: Pupils were reactive. Nares were clear. Mouth exam showed dentures on top. She has a relatively small number of teeth on the bottom. NECK: Palpation of the neck reveals no lymph nodes. CHEST: Shows a dorsal kyphosis. Temperature is 36.7. HEART: Heart rate was 87 per minute. The rhythm was regular. LUNGS: Auscultation revealed generalized decreased breath sounds. This was most prominent in the lower lung willis. She is wheezing on expiration. Respiratory rate was 20 breaths per minute. the Blood pressure is 122/51. Oxygen saturation is 98% on 3 liters. ABDOMEN: Soft. It was mildly obese. Bowel sounds were normal. There was no tenderness to palpation. EXTREMITIES: Showed reddish brown skin discoloration on both lower extremities anteriorly. +1 edema was noted bilaterally. DIAGNOSTIC STUDIES: The patient had a chest x-ray on admission. This showed ____ mild pulmonary edema with trace pleural effusions on the right and small left pleural effusion. Left base consolidation or atelectasis was noted. X-ray done on the was relatively similar. CAT scan of the chest done on the showed a slight increase in size of the small right and moderate left effusions compared with the prior CAT scan done on 06/02/2016. Atelectatic changes were seen at the lung bases. Mild mediastinal adenopathy was noted. Ultrasound of the portal and hepatic veins reported retrograde flow in the splenic vein and antegrade flow in the other ones. There was no evidence for thrombosis. LABORATORY DATA: Electrolytes today show sodium 139, potassium 4.8, chloride 100, and bicarbonate 36. The BUN is 41 with a creatinine of 1.4. Blood sugars today was as high as 317. Admission white count was 8.05 and hemoglobin was 7.6. Platelets were 350,000. MCV, MCH, and MCHC were all low. Hemoglobin today is 8.2. Yesterday, it was 8.8. Two days ago, it was 9.3. It appears she continues to be dropping. Coags were unremarkable. Spot urinary sodium was 89. IMPRESSIONS: 1. Pleural effusions, greater on the left than the right -- increased slightly compared with May - chylous in nature by history. 2. Atelectasis at both lung bases. 3. Anemia. 4. Wheezing -- undetermined etiology -- cannot exclude chronic obstructive pulmonary disease versus other. COMMENTS AND RECOMMENDATIONS: The patient all in all seems fairly comfortable. I am sure she is limited in her capabilities, however. Dr. Perkins felt strongly that thoracentesis should be limited and avoided if possible in light of the chylous nature of the effusion. I agree with that philosophy. I do not think she needs a tap right now. She is on furosemide 60 mg in the morning and 40 in the evening. She is on neb treatments, which I agree with. She appears to be on her other usual medicines. Hopefully, the source of the anemia can be found. Thank you for asking me to assist in her care.
--- NOTE | 2016-08-30 16:11 | Progress Note ---
Internal Med Progress Note Date of Service: August 30, 2016. Provider Documentation: SUBJECTIVE: sitting on the chair comfortably says she ambulated in hallway with PT sob improved no nausea or abdominal pain OBJECTIVE: Vital Signs-as noted below Exam: General-alert and awake and oriented x 3. ENT-Normal hearing Neck-no neck masses Lungs-cta b/l no wheezing or crackles Heart-s1 and s2 heard regular rate and rhythm no murmurs Abdomen-soft bowel sounds present non tender no distension Extremities- no present no erythema Neuro-alert and awake oriented moves extremities Lab data as noted below. ASSESSMENT & PLAN: SYMPTOMATIC ACUTE ON CHRONIC ANEMIA, Likely Chronic GI blood loss : As per and P: Presented with increasing SOB, lightheadedness, generalized weakness, likely secondary to anemia in setting of multiple chronic conditions- COPD, B/l Pleural effusion, GRAHAM cirrhosis. Has had multiple admissions in past for similar reason. Last one was last month 07/2016 when she was transfused PRBCs /EGD was done. Hg is 5.7 on presentation Most Likely Upper GI bleeding with hx of GRAHAM Cirrhosis, Portal HT, Varices. 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 Recent EGD last month 07/17/2016- small esophageal varices, no other source of bleeding identified. s/p 3 units of PRBCs so far with dose of IV Lasix 60 mg which improved symptoms --> Hb 8.8 today was on Protonix drip . Currently on Protonix 40 mg IV BID Dental cut soft diet + tolerating it well GI on board. No plans for any further intervention. Colonoscopy inpatinet vs outpatient. WORSENING SOB : Mostlikely from volume overload from prbc transfusion which improved with iv lasix also has pleural effusions Left > right currently on albumin and Lasix dose increased pulmonary consulted and appreciate inputs. NESTOR ON CKD STAGE IV- Improved baseline 1.1-1.3 cr 1.4 today will f/u labs while pt on diuretics. GRAHAM CIRRHOSIS with ASCITES: Last paracentesis was on 05/29/16- 100cc chylous appearing fluid, WBC < 500, culture- no growth currently on lasix 60mg in am and 40mg in pm and Aldactone 100 mg daily On Rifaximin 550 mg PO BID, Colace BID, Miralex daily (Could not tolerate lactulose in past). continue same CHRONIC HYPOXIC RESPIRATORY FAILURE : Currently saturating well on 3 liters NC ( baseline as at home) Multifactorial: Underlying COPD, Chronic Bilateral pleural effusions, GRAHAM cirrhosis with portal HTN and ascites, normal EF on 2013 echo stable will monitor. Stable conditions: H/O HEPATIC ENCEPHALOPATHY Mental status normal- AAOX3 as at baseline Ammonia level-41 On Rifaximin, Dulcolax, Colace. Unable to tolerate lactulose in past DM II Uncontrolled Last A1c: 9.9 02/2016 On -Lantus , ISS to be continued adjusting ISS Pharmacy consult placed HYPOTHYROIDISM: On Levothyroxine PAROXYSMAL AFIB currently in NSR; rate controlled On Beta moises Not on anticoagulated due to anemia/GI bleeding DVT PROPHYLAXIS -SCDs due to hx varices, anemia, GI bleeding CODE STATUS Full code DISPOSITION : PT/OT ordered social service for d/.c planning Vital Signs: Date Time Temp Pulse Resp B/P Pulse Ox O2 Delivery O2 Flow Rate FiO2 08/30/16 15:29 36.4 85 18 122/63 97 Nasal Cannula 3.0 08/30/16 15:07 87 16 97 Nasal Cannula 3.0 08/30/16 11:18 87 16 98 Nasal Cannula 3.0 08/30/16 09:06 36.7 94 20 122/51 95 Nasal Cannula 3.0 08/30/16 08:00 Nasal Cannula 3.0 08/30/16 07:41 36.6 100 20 131/63 95 Nasal Cannula 3.0 08/30/16 06:59 94 16 95 Nasal Cannula 3.0 08/30/16 00:18 36.6 101 20 135/56 94 Nasal Cannula 3.0 08/30/16 00:00 Nasal Cannula 3.0 08/29/16 21:54 109 22 147/53 95 Nasal Cannula 3.0 08/29/16 20:41 106 20 130/46 95 Nasal Cannula 3.0 08/29/16 20:00 Nasal Cannula 3.0 08/29/16 19:25 86 16 94 Nasal Cannula 2.0 Lab Results: Results Past 24 Hours Test 08/29/16 16:54 08/29/16 18:30 08/29/16 20:21 08/29/16 22:00 Range/Units Bedside Glucose 338 293 70-90 mg/dl Urine Collection Time 24 HOURS Urine Total Volume 1750 mL Urine Sodium mEQ/L 59 meq/L Urine Sodium 24 Hour 103 40-220 mmol/24 Urine Random Sodium 89 mEq/L Test 08/30/16 06:15 08/30/16 07:33 08/30/16 11:34 Range/Units White Blood Count 8.53 4.8-10.8 K/uL Red Blood Count 3.33 4.2-5.4 M/uL Hemoglobin 8.2 12.0-16.0 g/dL Hematocrit 27.3 37-47 % Mean Corpuscular Volume 82.0 80-100 fL Mean Corpuscular Hemoglobin 24.6 25-34 pg Mean Corpuscular Hemoglobin Concent 30.0 32-36 g/dl Platelet Count 322 130-400 K/uL Mean Platelet Volume 9.1 7.4-10.4 fL Neutrophils (%) (Auto) 67.7 % Lymphocytes (%) (Auto) 12.7 % Monocytes (%) (Auto) 14.4 % Eosinophils (%) (Auto) 4.3 % Basophils (%) (Auto) 0.7 % Neutrophils # (Auto) 5.77 1.4-6.5 K/uL Lymphocytes # (Auto) 1.08 1.2-3.4 K/uL Monocytes # (Auto) 1.23 0.11-0.59 K/uL Eosinophils # (Auto) 0.37 0-0.5 K/uL Basophils # (Auto) 0.06 0-0.2 K/uL RDW Standard Deviation 55.0 36.4-46.3 fL RDW Coefficient of Variation 18.6 11.5-14.5 % Immature Granulocyte % (Auto) 0.2 % Immature Granulocyte # (Auto) 0.02 0.00-0.02 K/uL Polychromasia 1+ Hypochromasia PRESENT Basophilic Stippling 1+ Anisocytosis PRESENT Sodium Level 139 136-145 mmol/L Potassium Level 4.8 3.5-5.1 mmol/L Chloride Level 100 98-107 mmol/L Carbon Dioxide Level 36 21-32 mmol/L Anion Gap 3.0 3-11 mmol/L Blood Urea Nitrogen 41 7-18 mg/dl Creatinine 1.40 0.60-1.20 mg/dl Est Creatinine Clear Calc Drug Dose 40.6 ml/min Estimated GFR () 43.1 Estimated GFR (Non- 37.2 BUN/Creatinine Ratio 29.0 10-20 Random Glucose 217 70-99 mg/dl Calcium Level 9.0 8.5-10.1 mg/dl Bedside Glucose 212 317 70-90 mg/dl
[2016-08-30] MEDS: ATORVASTATIN 40 MG TAB PO SCH (20:41)
[2016-08-30] MEDS: LATANOPROST 0.005% OP SOLN 2.5 ML BTL OPB SCH (20:41)
[2016-08-31] VITALS (7 sets, daily range): BP systolic 108–134; BP diastolic 58–70; PULSE 80–106; TEMP 36.6–36.8; O2SAT 93–98
[2016-08-31 05:43] LABS: BASO % 0.7 %; BASO ABS # 0.06 K/uL (0-0.2); EOS % 2.1 %; HEMATOCRIT 25.9 % (37-47); IG% 0.1 %; LYMPH % 11.1 %; LYMPH ABS # 1.02 K/uL (1.2-3.4); MEAN CELL VOLUME 82.7 fL (80-100); MEAN CORPUSCULAR HEMOGLOBIN 24.9 pg (25-34); MEAN CORPUSCULAR HGB CONC 30.1 g/dl (32-36); MEAN PLATELET VOLUME 9.3 fL (7.4-10.4); MONO % 13.2 %; NEUT % 72.8 %; PLATELET COUNT 309 K/uL (130-400); RED BLOOD COUNT 3.13 M/uL (4.2-5.4); WHITE BLOOD COUNT 9.16 K/uL (4.8-10.8)
[2016-08-31 06:14] LABS: COMPLETE YES; HYPOCHROMIA PRESENT; POLYCHROMASIA 1+
[2016-08-31 06:25] LABS: BUN/CREATININE RATIO 27.6 (10-20); CALCIUM 9.3 mg/dl (8.5-10.1); CREATININE 1.4 mg/dl (0.60-1.20); POTASSIUM 4.7 mmol/L (3.5-5.1)
[2016-08-31] MEDS: LEVOTHYROXINE 112 MCG TAB PO SCH (06:33)
[2016-08-31] MEDS: ALBUT/IPRATROP 3MG/0.5MG NEB 3 ML VIAL INH SCH ×2 (06:56→12:00)
[2016-08-31] MEDS: FUROSEMIDE INJ 60 MG in SYRINGE 0 ML IV SCH (08:23)
[2016-08-31] MEDS: VENLAFAXINE HCL 50 MG TAB PO SCH (08:24)
[2016-08-31] MEDS: POLYETHYLENE (MIRALAX) 17 GM PACK PO SCH (08:24)
[2016-08-31] MEDS: ALBUMIN HUMAN 25% 12.5 GM/50 ML VIAL IV SCH ×2 (08:24→20:55)
[2016-08-31] MEDS: RIFAXIMIN TAB 550 MG TAB PO SCH ×2 (08:25→20:38)
[2016-08-31] MEDS: PANTOprazole SOD 40 MG TAB PO SCH ×2 (08:25→20:39)
[2016-08-31] MEDS: METOPROLOL SUCC 25MG EXT REL TAB PO SCH ×2 (08:25→20:38)
[2016-08-31] MEDS: SPIRONOLACTONE 100 MG TAB PO SCH (08:25)
[2016-08-31] MEDS: DOCUSATE SODIUM 100 MG CAP PO SCH ×2 (08:26→20:38)
[2016-08-31] MEDS: INSULIN ASPART 100 UNITS/ML 3 ML PEN SC SCH ×4 (08:34→21:03)
[2016-08-31] MEDS: INSULIN GLARGINE SOLOSTAR 100 UNITS/ML 3 ML PEN SC SCH ×2 (08:34→21:02)
--- NOTE | 2016-08-31 10:47 | DIAGNOSTIC IMAGING REPORT ---
TWO VIEW CHEST CLINICAL HISTORY: CHF and pleural effusion. FINDINGS: PA and lateral chest radiographs are compared to study dated 08/28/2016 and correlated with chest CT dated 08/28/2016. The PA view is degraded by patient rotation. The heart is enlarged and there is atherosclerotic calcification of the thoracic aorta. There is pulmonary vascular congestion and interstitial edema, not significantly changed from 08/28/2016. There are layering pleural effusions with bibasilar consolidation, left larger than right. No pneumothorax is seen. The skeletal structures are osteopenic. The bony thorax is grossly intact. Degenerative change and hyperkyphosis are noted in the thoracic spine. A left shoulder arthroplasty is in place. IMPRESSION: 1. Cardiomegaly with evidence of congestive failure and interstitial edema. This is similar in appearance to 08/26/2016. 2. Layering pleural effusions and bibasilar consolidation, left larger than right. Electronically signed by: Jose Alejandro Ramos M.D. 08/31/2016 10:45 AM Dictated Date/Time: 08/31/2016 10:44 AM
[2016-08-31] MEDS ORDERED: POLYETHYLENE (MIRALAX) 17 GM PACK PO SCH (12:00)
[2016-08-31] MEDS ORDERED: BISACODYL 5 MG TABEC PO ONE (12:00)
--- NOTE | 2016-08-31 12:34 | Gastroenterology Progress Note ---
Progress Note Date of Service: August 31, 2016 Subjective Pt evaluation today including: conversation w/ patient, physical exam, chart review, lab review, review of studies, review of inpatient medication list Pt overall feels well, still having SOB but improving. She denies any CP, abd pain, n/v. No BM overnight. Hgb down to 7.8 today. She is on CL diet, starting bowel prep for colonoscopy tomorrow. Review of Systems Constitutional: No chills, No fever Respiratory: + shortness of breath, No cough Cardiac: No chest pain Abdomen: No GI bleeding, No nausea, No pain, No vomiting Medications Current Inpatient Medications Medications (Trade) Dose Ordered Sig/Virgil Route Start Time Stop Time Status Last Admin Dose Admin Ipratropium [place] (Atrovent 0.02% 0.5MG/2.5ML Neb) 0.5 mg Q4H PRN INH 08/26/16 00:15 09/25/16 00:14 Levalbuterol (Xopenex 1.25MG/ 0.5ML Neb) 1.25 mg Q4H PRN INH 08/26/16 00:15 09/25/16 00:14 Acetaminophen (Tylenol Tab) 325 mg Q6H PRN PO 08/26/16 00:15 09/25/16 00:14 Nitroglycerin (Nitrostat Tab) 0.4 mg UD PRN SL 08/26/16 00:15 09/25/16 00:14 Insulin Aspart (novoLOG ASPART) SLIDING SCALE If C... ACHS SC 08/26/16 06:45 09/27/16 06:44 08/31/16 11:59 10 UNITS Glucose (Glucose 40% Gel) 15-30 GRAMS 15 GRAMS... UD PRN PO 08/26/16 00:15 09/25/16 00:14 Glucose (Glucose Chew Tab) 4-8 Tablets 4 Tabl... UD PRN PO 08/26/16 00:15 09/25/16 00:14 Dextrose (Dextrose 50% 50ML Syringe) 25-50ML OF 50% DW IV FOR... UD PRN IV 08/26/16 00:15 09/25/16 00:14 Glucagon (Glucagon Inj) 1 mg UD PRN SQ 08/26/16 00:15 09/25/16 00:14 Ondansetron HCl (Zofran Inj) 4 mg Q6H PRN IV 08/26/16 00:15 09/25/16 00:14 Atorvastatin Calcium (Lipitor Tab) 80 mg QPM PO 08/26/16 21:00 09/25/16 20:59 08/30/16 20:41 80 MG Docusate Sodium (coLACE CAP) 100 mg BID PO 08/26/16 09:00 09/25/16 08:59 08/31/16 08:26 100 MG Latanoprost (Xalatan Oph Soln) 1 drops HS OPB 08/26/16 21:00 09/25/16 20:59 08/30/16 20:41 1 DROPS Levothyroxine Sodium (Synthroid Tab) 112 mcg DAILYBB PO 08/26/16 06:00 09/25/16 06:59 08/31/16 06:33 112 MCG Metoprolol Succinate (Toprol Xl Tab) 25 mg BID PO 08/26/16 09:00 09/25/16 08:59 08/31/16 08:25 25 MG Polyethylene (Miralax Powder Packet) 17 gm DAILY PO 08/26/16 09:00 09/25/16 08:59 08/31/16 08:24 17 GM Rifaximin (Xifaxan Tab) 550 mg BID PO 08/26/16 09:00 09/25/16 08:59 08/31/16 08:25 550 MG Spironolactone (Aldactone Tab) 100 mg QAM PO 08/26/16 09:00 09/25/16 08:59 08/31/16 08:25 100 MG Venlafaxine HCl (effeXOR TAB) 100 mg DAILY PO 08/26/16 09:00 09/25/16 08:59 08/31/16 08:24 100 MG Oxycodone HCl (Roxicodone Immediate Rel Tab) 5 mg Q6H PRN PO 08/26/16 03:15 09/09/16 03:14 Morphine Sulfate (MoRPHine SULFATE INJ) 2 mg Q6H PRN IV 08/27/16 12:45 09/10/16 12:44 Albuterol/ Ipratropium (Duoneb) 3 ml QIDR INH 08/28/16 12:00 09/27/16 11:59 08/31/16 06:56 3 ML Albumin Human (Albumin 25%) 25 gm BID IV 08/29/16 21:00 09/01/16 20:59 08/31/16 08:24 25 GM Pantoprazole Sodium 40 mg 40 mg BID PO 08/29/16 21:00 09/28/16 20:59 08/31/16 08:25 40 MG Furosemide 60 mg/ Syringe 6 ml @ 4 mls/min DAILY@0900 IV 08/31/16 09:00 09/30/16 08:59 08/31/16 08:23 4 MLS/MIN Furosemide/Syringe (Lasix Inj/ Syringe) 4 ml @ 4 mls/min DAILY@2100 IV 08/30/16 21:00 09/29/16 20:59 08/30/16 20:41 4 MLS/MIN Polyethylene (Miralax Powder Packet) 238 gm TODAY@1200 PO 08/31/16 12:00 08/31/16 17:00 08/31/16 11:45 238 GM Insulin Glargine (Lantus Solostar Pen) 15 unit BID SC 08/30/16 21:00 09/29/16 20:59 08/31/16 08:34 15 UNIT Albuterol/ Ipratropium (Combivent Respimat Inh) 1 puffs QID INH 08/31/16 13:00 09/30/16 12:59 UNV Objective Vital Signs Date Time Temp Pulse Resp B/P Pulse Ox O2 Delivery O2 Flow Rate FiO2 08/31/16 08:59 104 134/66 08/31/16 08:45 102 130/66 08/31/16 08:06 36.8 106 18 132/61 93 Nasal Cannula 3.0 08/31/16 08:00 Nasal Cannula 3.0 08/31/16 06:56 104 16 94 Nasal Cannula 3.0 08/30/16 23:59 Nasal Cannula 3.0 08/30/16 20:50 35.8 98 18 156/53 95 Nasal Cannula 3.0 08/30/16 19:33 86 16 96 Nasal Cannula 3.0 08/30/16 16:00 Nasal Cannula 3.0 08/30/16 15:29 36.4 85 18 122/63 97 Nasal Cannula 3.0 08/30/16 15:07 87 16 97 Nasal Cannula 3.0 Physical Exam General Appearance: WD/WN, no apparent distress Eyes: normal inspection, PERRL, EOMI Neck: supple, no JVD, trachea midline Respiratory/Chest: no respiratory distress, no accessory muscle use, + decreased breath sounds (but improved aeration per auscultation compared to yesterday especially on upper lobes ) Cardiovascular: regular rate, rhythm, no gallop, no murmur Abdomen: normal bowel sounds, non tender, soft Extremities: + swelling (+1 pitting edema on bilateral LE ) Neurologic/Psych: alert, normal mood/affect, oriented x 3 Skin: normal color, no jaundice, no rash Laboratory Results Last 24 Hours Test 08/30/16 16:42 08/30/16 19:57 08/31/16 05:27 08/31/16 07:49 Bedside Glucose 257 mg/dl 266 mg/dl 173 mg/dl White Blood Count 9.16 K/uL Red Blood Count 3.13 M/uL Hemoglobin 7.8 g/dL Hematocrit 25.9 % Mean Corpuscular Volume 82.7 fL Mean Corpuscular Hemoglobin 24.9 pg Mean Corpuscular Hemoglobin Concent 30.1 g/dl Platelet Count 309 K/uL Mean Platelet Volume 9.3 fL Neutrophils (%) (Auto) 72.8 % Lymphocytes (%) (Auto) 11.1 % Monocytes (%) (Auto) 13.2 % Eosinophils (%) (Auto) 2.1 % Basophils (%) (Auto) 0.7 % Neutrophils # (Auto) 6.67 K/uL Lymphocytes # (Auto) 1.02 K/uL Monocytes # (Auto) 1.21 K/uL Eosinophils # (Auto) 0.19 K/uL Basophils # (Auto) 0.06 K/uL RDW Standard Deviation 57.2 fL RDW Coefficient of Variation 18.7 % Immature Granulocyte % (Auto) 0.1 % Immature Granulocyte # (Auto) 0.01 K/uL Polychromasia 1+ Hypochromasia PRESENT Sodium Level 138 mmol/L Potassium Level 4.7 mmol/L Chloride Level 98 mmol/L Carbon Dioxide Level 38 mmol/L Anion Gap 2.0 mmol/L Blood Urea Nitrogen 39 mg/dl Creatinine 1.40 mg/dl Est Creatinine Clear Calc Drug Dose 40.6 ml/min Estimated GFR () 43.1 Estimated GFR (Non- 37.2 BUN/Creatinine Ratio 27.6 Random Glucose 199 mg/dl Calcium Level 9.3 mg/dl Test 08/31/16 11:27 Bedside Glucose 268 mg/dl Assessment and Plan A 75-year-old female with history of GRAHAM cirrhosis. MELD 11. She has hx of esophageal varices, last EGD 1 month ago (grade 1 varices), colonoscopy in 2016 w findings of cecal AVM. She was anemic on admission, Hgb 6, given 3U PRBC, now up to 8.2. She was also having dyspnea, SOB but has evidence of pleural effusion R > L. No signs of GI bleeding overnight, Hgb down to 7.8. CXR showed persistent bilateral lung effusion L >R. On auscultation his upper lung field w improved aeration. PLANS: - Xifaxan 550mg BID - Continue Lasix to 60mg IV in AM, 40mg IV in PM. Spironolactone 100mg daily - Continue Albumin 25% 25g BID - CL diet today, NPO after midnight on 08/31 for colonoscopy eval on 09/01/[address] Trinh. Bowel prep ordered. - Monitor H/H and transfuse prn. Attg addendum: I interviewed and examined pt, reviewed chart and labs. Pt appears clnically improved, and she continues to be net fluid negative. CXR is unchanged and creat / Na / Hgb are stable. Would plan for csocpy tomorrow to look for AVM's as possible cause of anemia; anticipate discharge post csocpy.
[2016-08-31] MEDS: IPRATROPIUM BROMIDE/ALBUTEROL respimat INH INH SCH ×3 (16:33→20:37)
--- NOTE | 2016-08-31 16:58 | Pulmonology Progress Note ---
Pulmonary Progress Note Date of Service August 31, 2016. Attending Dr. Lopez Subjective Only mildly short of breath today On 3 liters nasal cannula Objective General: NAD Heent: NC/AT Lungs: Diminished bibasilar breath sounds, no wheezing CVS: S1S2 reg Abd: Soft Ext: No edema Assessment & Plan Bilateral pleural effusions secondary to liver disease, GRAHAM H/o COPD Continue bronchodilators. No need for steroids Continue diuretics. 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 It would reoccur fast, and she would lose a significant amount of proteins if chest tube is inserted. H/H still drifting down, for potential colonoscopy. May require post procedure BIPAP, has chronic CO2 retention. Data Medications: Current Inpatient Medications Medications (Trade) Dose Ordered Sig/Virgil Route Start Time Stop Time Status Last Admin Dose Admin Ipratropium [place] (Atrovent 0.02% 0.5MG/2.5ML Neb) 0.5 mg Q4H PRN INH 08/26/16 00:15 09/25/16 00:14 Levalbuterol (Xopenex 1.25MG/ 0.5ML Neb) 1.25 mg Q4H PRN INH 08/26/16 00:15 09/25/16 00:14 Acetaminophen (Tylenol Tab) 325 mg Q6H PRN PO 08/26/16 00:15 09/25/16 00:14 Nitroglycerin (Nitrostat Tab) 0.4 mg UD PRN SL 08/26/16 00:15 09/25/16 00:14 Insulin Aspart (novoLOG ASPART) SLIDING SCALE If C... ACHS SC 08/26/16 06:45 09/27/16 06:44 08/31/16 11:59 10 UNITS Glucose (Glucose 40% Gel) 15-30 GRAMS 15 GRAMS... UD PRN PO 08/26/16 00:15 09/25/16 00:14 Glucose (Glucose Chew Tab) 4-8 Tablets 4 Tabl... UD PRN PO 08/26/16 00:15 09/25/16 00:14 Dextrose (Dextrose 50% 50ML Syringe) 25-50ML OF 50% DW IV FOR... UD PRN IV 08/26/16 00:15 09/25/16 00:14 Glucagon (Glucagon Inj) 1 mg UD PRN SQ 08/26/16 00:15 09/25/16 00:14 Ondansetron HCl (Zofran Inj) 4 mg Q6H PRN IV 08/26/16 00:15 09/25/16 00:14 Atorvastatin Calcium (Lipitor Tab) 80 mg QPM PO 08/26/16 21:00 09/25/16 20:59 08/30/16 20:41 80 MG Docusate Sodium (coLACE CAP) 100 mg BID PO 08/26/16 09:00 09/25/16 08:59 08/31/16 08:26 100 MG Latanoprost (Xalatan Oph Soln) 1 drops HS OPB 08/26/16 21:00 09/25/16 20:59 08/30/16 20:41 1 DROPS Levothyroxine Sodium (Synthroid Tab) 112 mcg DAILYBB PO 08/26/16 06:00 09/25/16 06:59 08/31/16 06:33 112 MCG Metoprolol Succinate (Toprol Xl Tab) 25 mg BID PO 08/26/16 09:00 09/25/16 08:59 08/31/16 08:25 25 MG Polyethylene (Miralax Powder Packet) 17 gm DAILY PO 08/26/16 09:00 09/25/16 08:59 08/31/16 08:24 17 GM Rifaximin (Xifaxan Tab) 550 mg BID PO 08/26/16 09:00 09/25/16 08:59 08/31/16 08:25 550 MG Spironolactone (Aldactone Tab) 100 mg QAM PO 08/26/16 09:00 09/25/16 08:59 08/31/16 08:25 100 MG Venlafaxine HCl (effeXOR TAB) 100 mg DAILY PO 08/26/16 09:00 09/25/16 08:59 08/31/16 08:24 100 MG Oxycodone HCl (Roxicodone Immediate Rel Tab) 5 mg Q6H PRN PO 08/26/16 03:15 09/09/16 03:14 Morphine Sulfate (MoRPHine SULFATE INJ) 2 mg Q6H PRN IV 08/27/16 12:45 09/10/16 12:44 Albumin Human (Albumin 25%) 25 gm BID IV 08/29/16 21:00 09/01/16 20:59 08/31/16 08:24 25 GM Pantoprazole Sodium 40 mg 40 mg BID PO 08/29/16 21:00 09/28/16 20:59 08/31/16 08:25 40 MG Furosemide 60 mg/ Syringe 6 ml @ 4 mls/min DAILY@0900 IV 08/31/16 09:00 09/30/16 08:59 08/31/16 08:23 4 MLS/MIN Furosemide/Syringe (Lasix Inj/ Syringe) 4 ml @ 4 mls/min DAILY@2100 IV 08/30/16 21:00 09/29/16 20:59 08/30/16 20:41 4 MLS/MIN Polyethylene (Miralax Powder Packet) 238 gm TODAY@1200 PO 08/31/16 12:00 08/31/16 17:00 08/31/16 11:45 238 GM Insulin Glargine (Lantus Solostar Pen) 15 unit BID SC 08/30/16 21:00 09/29/16 20:59 08/31/16 08:34 15 UNIT Albuterol/ Ipratropium (Combivent Respimat Inh) 1 puffs QID INH 08/31/16 13:00 09/30/16 12:59 I & O: 24-Hour Column 08/31/16 08:00 Intake Total 1000 ml Output Total 2400 ml Balance -1400 ml Vital Signs: Date Time Temp Pulse Resp B/P Pulse Ox O2 Delivery O2 Flow Rate FiO2 08/31/16 15:22 36.6 80 20 108/58 98 Nasal Cannula 3.0 08/31/16 08:59 104 134/66 08/31/16 08:45 102 130/66 08/31/16 08:06 36.8 106 18 132/61 93 Nasal Cannula 3.0 08/31/16 08:00 Nasal Cannula 3.0 08/31/16 06:56 104 16 94 Nasal Cannula 3.0 08/30/16 23:59 Nasal Cannula 3.0 08/30/16 20:50 35.8 98 18 156/53 95 Nasal Cannula 3.0 08/30/16 19:33 86 16 96 Nasal Cannula 3.0 Laboratory Results: Last 24 Hours Test 08/30/16 19:57 08/31/16 05:27 08/31/16 07:49 08/31/16 11:27 Bedside Glucose 266 mg/dl 173 mg/dl 268 mg/dl White Blood Count 9.16 K/uL Red Blood Count 3.13 M/uL Hemoglobin 7.8 g/dL Hematocrit 25.9 % Mean Corpuscular Volume 82.7 fL Mean Corpuscular Hemoglobin 24.9 pg Mean Corpuscular Hemoglobin Concent 30.1 g/dl Platelet Count 309 K/uL Mean Platelet Volume 9.3 fL Neutrophils (%) (Auto) 72.8 % Lymphocytes (%) (Auto) 11.1 % Monocytes (%) (Auto) 13.2 % Eosinophils (%) (Auto) 2.1 % Basophils (%) (Auto) 0.7 % Neutrophils # (Auto) 6.67 K/uL Lymphocytes # (Auto) 1.02 K/uL Monocytes # (Auto) 1.21 K/uL Eosinophils # (Auto) 0.19 K/uL Basophils # (Auto) 0.06 K/uL RDW Standard Deviation 57.2 fL RDW Coefficient of Variation 18.7 % Immature Granulocyte % (Auto) 0.1 % Immature Granulocyte # (Auto) 0.01 K/uL Polychromasia 1+ Hypochromasia PRESENT Sodium Level 138 mmol/L Potassium Level 4.7 mmol/L Chloride Level 98 mmol/L Carbon Dioxide Level 38 mmol/L Anion Gap 2.0 mmol/L Blood Urea Nitrogen 39 mg/dl Creatinine 1.40 mg/dl Est Creatinine Clear Calc Drug Dose 40.6 ml/min Estimated GFR () 43.1 Estimated GFR (Non- 37.2 BUN/Creatinine Ratio 27.6 Random Glucose 199 mg/dl Calcium Level 9.3 mg/dl Test 08/31/16 16:21 Bedside Glucose 186 mg/dl
--- NOTE | 2016-08-31 18:51 | Progress Note ---
Internal Med Progress Note Date of Service: August 31, 2016. Provider Documentation: SUBJECTIVE: sitting on the chair comfortably denies sob no pain ambulating ok' awaiting colonoscopy in am OBJECTIVE: Vital Signs-as noted below Exam: General-alert and awake and oriented x 3. ENT-Normal hearing Neck-no neck masses Lungs-cta b/l no wheezing or crackles Heart-s1 and s2 heard regular rate and rhythm no murmurs Abdomen-soft bowel sounds present non tender no distension Extremities- no present no erythema Neuro-alert and awake oriented moves extremities Lab data as noted below. ASSESSMENT & PLAN: SYMPTOMATIC ACUTE ON CHRONIC ANEMIA, Likely Chronic GI blood loss : As per and P: Presented with increasing SOB, lightheadedness, generalized weakness, likely secondary to anemia in setting of multiple chronic conditions- COPD, B/l Pleural effusion, GRAHAM cirrhosis. Has had multiple admissions in past for similar reason. Last one was last month 07/2016 when she was transfused PRBCs /EGD was done. Hg is 5.7 on presentation Most Likely Upper GI bleeding with hx of GRAHAM Cirrhosis, Portal HT, Varices. 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 Recent EGD last month 07/17/2016- small esophageal varices, no other source of bleeding identified. s/p 3 units of PRBCs so far with dose of IV Lasix 60 mg which improved symptoms --> Hb 7.8 today was on Protonix drip . Currently on Protonix 40 mg IV BID Dental cut soft diet + tolerating it well GI on board. No plans for any further intervention. Plan for Colonoscopy in am f/u labs WORSENING SOB : Mostlikely from volume overload from prbc transfusion which improved with iv lasix also has pleural effusions Left > right currently on albumin and Lasix dose increased sob improved pulmonary consulted and appreciate inputs. NESTOR ON CKD STAGE IV- Improved baseline 1.1-1.3 cr 1.4 today will f/u labs while pt on diuretics. GRAHAM CIRRHOSIS with ASCITES: Last paracentesis was on 05/29/16- 100cc chylous appearing fluid, WBC < 500, culture- no growth currently on lasix 60mg in am and 40mg in pm and Aldactone 100 mg daily On Rifaximin 550 mg PO BID, Colace BID, Miralex daily (Could not tolerate lactulose in past). continue same CHRONIC HYPOXIC RESPIRATORY FAILURE : Currently saturating well on 3 liters NC ( baseline as at home) Multifactorial: Underlying COPD, Chronic Bilateral pleural effusions, GRAHAM cirrhosis with portal HTN and ascites, normal EF on 2013 echo stable will monitor. Stable conditions: H/O HEPATIC ENCEPHALOPATHY Mental status normal- AAOX3 as at baseline Ammonia level-41 On Rifaximin, Dulcolax, Colace. Unable to tolerate lactulose in past DM II Uncontrolled Last A1c: 9.9 02/2016 On -Lantus , ISS to be continued adjusting ISS Pharmacy consult placed HYPOTHYROIDISM: On Levothyroxine PAROXYSMAL AFIB currently in NSR; rate controlled On Beta moises Not on anticoagulated due to anemia/GI bleeding DVT PROPHYLAXIS -SCDs due to hx varices, anemia, GI bleeding CODE STATUS Full code DISPOSITION : PT/OT ordered possible d/c in 12-2 days if stable social service for d/.c planning Vital Signs: Date Time Temp Pulse Resp B/P Pulse Ox O2 Delivery O2 Flow Rate FiO2 08/31/16 16:00 Nasal Cannula 3.0 08/31/16 15:22 36.6 80 20 108/58 98 Nasal Cannula 3.0 08/31/16 08:59 104 134/66 08/31/16 08:45 102 130/66 08/31/16 08:06 36.8 106 18 132/61 93 Nasal Cannula 3.0 08/31/16 08:00 Nasal Cannula 3.0 08/31/16 06:56 104 16 94 Nasal Cannula 3.0 08/30/16 23:59 Nasal Cannula 3.0 08/30/16 20:50 35.8 98 18 156/53 95 Nasal Cannula 3.0 08/30/16 19:33 86 16 96 Nasal Cannula 3.0 Lab Results: Results Past 24 Hours Test 08/30/16 19:57 08/31/16 05:27 08/31/16 07:49 08/31/16 11:27 Range/Units Bedside Glucose 266 173 268 70-90 mg/dl White Blood Count 9.16 4.8-10.8 K/uL Red Blood Count 3.13 4.2-5.4 M/uL Hemoglobin 7.8 12.0-16.0 g/dL Hematocrit 25.9 37-47 % Mean Corpuscular Volume 82.7 80-100 fL Mean Corpuscular Hemoglobin 24.9 25-34 pg Mean Corpuscular Hemoglobin Concent 30.1 32-36 g/dl Platelet Count 309 130-400 K/uL Mean Platelet Volume 9.3 7.4-10.4 fL Neutrophils (%) (Auto) 72.8 % Lymphocytes (%) (Auto) 11.1 % Monocytes (%) (Auto) 13.2 % Eosinophils (%) (Auto) 2.1 % Basophils (%) (Auto) 0.7 % Neutrophils # (Auto) 6.67 1.4-6.5 K/uL Lymphocytes # (Auto) 1.02 1.2-3.4 K/uL Monocytes # (Auto) 1.21 0.11-0.59 K/uL Eosinophils # (Auto) 0.19 0-0.5 K/uL Basophils # (Auto) 0.06 0-0.2 K/uL RDW Standard Deviation 57.2 36.4-46.3 fL RDW Coefficient of Variation 18.7 11.5-14.5 % Immature Granulocyte % (Auto) 0.1 % Immature Granulocyte # (Auto) 0.01 0.00-0.02 K/uL Polychromasia 1+ Hypochromasia PRESENT Sodium Level 138 136-145 mmol/L Potassium Level 4.7 3.5-5.1 mmol/L Chloride Level 98 98-107 mmol/L Carbon Dioxide Level 38 21-32 mmol/L Anion Gap 2.0 3-11 mmol/L Blood Urea Nitrogen 39 7-18 mg/dl Creatinine 1.40 0.60-1.20 mg/dl Est Creatinine Clear Calc Drug Dose 40.6 ml/min Estimated GFR () 43.1 Estimated GFR (Non- 37.2 BUN/Creatinine Ratio 27.6 10-20 Random Glucose 199 70-99 mg/dl Calcium Level 9.3 8.5-10.1 mg/dl Test 08/31/16 16:21 Range/Units Bedside Glucose 186 70-90 mg/dl
[2016-08-31] MEDS: LATANOPROST 0.005% OP SOLN 2.5 ML BTL OPB SCH (20:38)
[2016-08-31] MEDS: ATORVASTATIN 40 MG TAB PO SCH (20:38)
[2016-08-31] MEDS: FUROSEMIDE INJ 40 MG in SYRINGE 0 ML IV SCH (20:39)
[2016-09-01] MEDS: LEVOTHYROXINE 112 MCG TAB PO SCH (06:14)
[2016-09-01 06:29] VITALS: PULSE 87; O2SAT 94
[2016-09-01 07:49] VITALS: BP 149/74; PULSE 94; TEMP 36.4; O2SAT 94
[2016-09-01] MEDS: FUROSEMIDE INJ 60 MG in SYRINGE 0 ML IV SCH (07:58)
[2016-09-01] MEDS: ALBUMIN HUMAN 25% 12.5 GM/50 ML VIAL IV SCH (07:59)
[2016-09-01] MEDS: DOCUSATE SODIUM 100 MG CAP PO SCH (08:00)
[2016-09-01] MEDS: SPIRONOLACTONE 100 MG TAB PO SCH (08:00)
[2016-09-01] MEDS: POLYETHYLENE (MIRALAX) 17 GM PACK PO SCH (08:00)
[2016-09-01] MEDS: IPRATROPIUM BROMIDE/ALBUTEROL respimat INH INH SCH ×2 (08:00→12:53)
[2016-09-01] MEDS: METOPROLOL SUCC 25MG EXT REL TAB PO SCH (08:01)
[2016-09-01] MEDS: PANTOprazole SOD 40 MG TAB PO SCH (08:01)
[2016-09-01] MEDS: RIFAXIMIN TAB 550 MG TAB PO SCH (08:02)
[2016-09-01] MEDS: INSULIN ASPART 100 UNITS/ML 3 ML PEN SC SCH ×2 (08:04→12:56)
[2016-09-01 08:07] LABS: BASO % 0.3 %; EOS % 2.2 %; HEMATOCRIT 28.5 % (37-47); IG% 0.2 %; LYMPH % 8.2 %; MEAN CELL VOLUME 82.1 fL (80-100); MEAN CORPUSCULAR HEMOGLOBIN 24.5 pg (25-34); MEAN CORPUSCULAR HGB CONC 29.8 g/dl (32-36); MEAN PLATELET VOLUME 9.4 fL (7.4-10.4); MONO % 12.3 %; NEUT % 76.8 %; PLATELET COUNT 343 K/uL (130-400); RED BLOOD COUNT 3.47 M/uL (4.2-5.4); WHITE BLOOD COUNT 10.91 K/uL (4.8-10.8)
[2016-09-01 08:08] LABS: BASO ABS # 0.03 K/uL (0-0.2)
[2016-09-01 08:34] LABS: ANISOCYTOSIS PRESENT; COMPLETE YES; HYPOCHROMIA PRESENT; LARGE PLATELETS 1+
[2016-09-01 08:36] LABS: BUN/CREATININE RATIO 29.8 (10-20); CREATININE 1.3 mg/dl (0.60-1.20); POTASSIUM 4.5 mmol/L (3.5-5.1)
[2016-09-01 10:53] VITALS: BP 149/74; PULSE 94; TEMP 36.4; O2SAT 94
[2016-09-01] MEDS ORDERED: ALBUT/IPRATROP 3MG/0.5MG NEB 3 ML VIAL INH ONE (11:15)
[2016-09-01 11:20] VITALS: PULSE 98; O2SAT 96
[2016-09-01] MEDS ORDERED: LIDOCAINE HCL 2% 2 ML VIAL (20MG/ML) ONE (12:07)
[2016-09-01] MEDS ORDERED: PROPOFOL IV EMULSION 10 MG/ML 20 ML VIAL IV ONE (12:07)
--- NOTE | 2016-09-01 12:09 | GI REPORT ---
Procedure Date: 09/01/2016 11:40 AM Procedure: Colonoscopy Indications: Iron deficiency anemia secondary to chronic blood loss Medicines: See the Anesthesia note for documentation of the administered medications Complications: No immediate complications. Estimated Blood Loss: Estimated blood loss: none. Procedure: Pre-Anesthesia Assessment: - ASA Grade Assessment: IV - A patient with severe systemic disease that is a constant threat to life. After I obtained informed consent, the scope was passed under direct vision. Throughout the procedure, the patient's blood pressure, pulse, and oxygen saturations were monitored continuously. The scope was introduced through the anus and advanced to the terminal ileum. The colonoscopy was performed without difficulty. The patient tolerated the procedure well. The quality of the bowel preparation was fair. Findings: The perianal and digital rectal examinations were signficant for hemorrhoids. There were rectal varices noted. Multiple small-mouthed diverticula were found in the sigmoid colon and in the descending colon. A 1 mm polyp was found in the transverse colon. The polyp was sessile. The polyp was removed with a cold biopsy forceps. Resection and retrieval were complete. To prevent bleeding after the polypectomy, one hemostatic clip was successfully placed. There was no bleeding at the end of the procedure. There was a large tattoo in the ascending colon without evidence of recurrent polyp. Small lipoma in ascending colon. There was a large amount of thick liquid stool throughout the colon that could only be partially cleared. The remainder of the colon was grossly normal, but a flat polyp or AVM may be missed. No evidence of active bleeding, and no source of bleeding identified. Impression: - Diverticulosis in the sigmoid colon and in the descending colon. Tattoo and lipoma in asc colon. - One 1 mm polyp in the transverse colon, removed with a cold biopsy forceps. Resected and retrieved. Clip was placed. - No source of bleeding identified. Recommendation: - Discharge pt to floor. - Despite prep quality, given her age and significant comorbidities, will defer repeating exam. - She is ok for discharge from our standpoint. - Would plan for d/c on lasix 40 BID and aldactone 100 mg qD. Will f/u in GI clinic in 2 weeks. - Follow Hgb monthly. Discharge on iron and folic acid supplements. Tomas Trinh M.D. Tomas Trinh MD 09/01/2016 12:09:19 PM This report has been signed electronically. Note Initiated On: 09/01/2016 11:40 AM I attest to the content of the Intraoperative Record and orders documented therein, exceptions below
--- NOTE | 2016-09-01 12:23 | Anesthesiology Progress Note ---
Anesthesia Post Op Note Date & Time September 01, 2016 at 12:23 Vital Signs Pain Intensity: 0.0 Vital Signs Past 12 Hours Date Time Temp Pulse Resp B/P Pulse Ox O2 Delivery O2 Flow Rate FiO2 09/01/16 12:04 98 20 135/59 98 Nasal Cannula 4 09/01/16 11:20 98 20 96 Nasal Cannula 3.0 09/01/16 11:10 36.2 98 22 120/49 91 Nasal Cannula 4 09/01/16 10:53 36.4 94 20 149/74 94 Nasal Cannula 3.0 09/01/16 08:00 Nasal Cannula 3.0 09/01/16 07:49 36.4 94 20 149/74 94 Nasal Cannula 4.0 09/01/16 06:29 87 20 94 Nasal Cannula 4.0 Notes Mental Status: alert / awake / arousable, participated in evaluation Pt Amnestic to Procedure: Yes Nausea / Vomiting: adequately controlled Pain: adequately controlled Airway Patency, RR, SpO2: stable & adequate BP & HR: stable & adequate Hydration State: stable & adequate Anesthetic Complications: no major complications apparent
[2016-09-01] MEDS: VENLAFAXINE HCL 50 MG TAB PO SCH (12:54)
[2016-09-01] MEDS: INSULIN GLARGINE SOLOSTAR 100 UNITS/ML 3 ML PEN SC SCH (12:55)
--- NOTE | 2016-09-01 15:02 | Discharge Instructions ---
Discharge Instructions Date of Service September 01, 2016. Admission Reason for Admission: Gi Bleed, Symptomatic Anemia Discharge Discharge Diagnosis / Problem: gi bleed, anemia. pleural effusions Discharge Goals Goal(s): Decrease discomfort, Improve function Activity Recommendations Activity Limitations: resume your previous activity . Instructions / Follow-Up Instructions / Follow-Up FOLLOWUP WITH FAMILY DOCTOR ON September AT 11AM. LAB: CBC IN ONE WEEK AND FOLLOW RESULTS WITH FAMILY DOCTOR. Current Hospital Diet Patient's current hospital diet: AHA Diet (Heart Healthy), Diabetes Type 2 Diet , Low Sodium Diet (2gm Na) Discharge Diet Recommended Diet: AHA Diet (Heart Healthy), Low Sodium Diet (2gm Na), Diabetes Type 2 Diet Procedures Procedures Performed: COLONOSCOPY WITH POLYPECTOMY Pending Studies Studies pending at discharge: no Laboratory Results Hemoglobin A1c Test 07/15/16 06:37 Range/Units Estimated Average Glucose 148 mg/dl Hemoglobin A1c 6.8 H 4.5-5.6 % Medical Emergencies . Who to Call and When: Medical Emergencies: If at any time you feel your situation is an emergency, please call 911 immediately. . Non-Emergent Contact Non-Emergency issues call your: Primary Care Provider . . "Provider Documentation" section prepared by Antonio Basilio. . VTE Core Measure Inpt VTE Proph given/why not?: SCD's
[2016-09-01 16:33] VITALS: BP 151/66; PULSE 100; TEMP 36.2; O2SAT 97
--- NOTE | 2016-09-01 18:22 | Progress Note ---
Internal Med Progress Note Date of Service: September 01, 2016. Provider Documentation: SUBJECTIVE: sitting on the chair comfortably s/p colonoscopy denies any pain no sob ok to go home OBJECTIVE: Vital Signs-as noted below Exam: General-alert and awake and oriented x 3. ENT-Normal hearing Neck-no neck masses Lungs-cta b/l no wheezing or crackles Heart-s1 and s2 heard regular rate and rhythm no murmurs Abdomen-soft bowel sounds present non tender no distension Extremities- no present no erythema Neuro-alert and awake oriented moves extremities Lab data as noted below. ASSESSMENT & PLAN: SYMPTOMATIC ACUTE ON CHRONIC ANEMIA, Likely Chronic GI blood loss : As per and P: Presented with increasing SOB, lightheadedness, generalized weakness, likely secondary to anemia in setting of multiple chronic conditions- COPD, B/l Pleural effusion, GRAHAM cirrhosis. Has had multiple admissions in past for similar reason. Last one was last month 07/2016 when she was transfused PRBCs /EGD was done. Hg is 5.7 on presentation Most Likely Upper GI bleeding with hx of GRAHAM Cirrhosis, Portal HT, Varices. 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 Recent EGD last month 07/17/2016- small esophageal varices, no other source of bleeding identified. s/p 3 units of PRBCs so far with dose of IV Lasix 60 mg which improved symptoms --> Hb 7.8 today was on Protonix drip . Currently on Protonix 40 mg IV BID Dental cut soft diet + tolerating it well GI on board. No plans for any further intervention. s/p Colonoscopy unremarkable GI ok for discharge f/u labs with pcp WORSENING SOB : Mostlikely from volume overload from prbc transfusion which improved with iv lasix also has pleural effusions Left > right currently on albumin and Lasix dose increased sob improved pulmonary consulted and appreciate inputs. discharge on home diuretics NESTOR ON CKD STAGE IV- Improved baseline 1.1-1.3 cr 1.3 today GRAHAM CIRRHOSIS with ASCITES: Last paracentesis was on 05/29/16- 100cc chylous appearing fluid, WBC < 500, culture- no growth currently on lasix 60mg in am and 40mg in pm and Aldactone 100 mg daily On Rifaximin 550 mg PO BID, Colace BID, Miralex daily (Could not tolerate lactulose in past). d/c on home meds CHRONIC HYPOXIC RESPIRATORY FAILURE : Currently saturating well on 3 liters NC ( baseline as at home) Multifactorial: Underlying COPD, Chronic Bilateral pleural effusions, GRAHAM cirrhosis with portal HTN and ascites, normal EF on 2013 echo stable will monitor. H/O HEPATIC ENCEPHALOPATHY Mental status normal- AAOX3 as at baseline Ammonia level-41 On Rifaximin, Dulcolax, Colace. Unable to tolerate lactulose in past DM II Uncontrolled Last A1c: 9.9 02/2016 On -Lantus , ISS to be continued adjusting ISS Pharmacy consult placed HYPOTHYROIDISM: On Levothyroxine PAROXYSMAL AFIB currently in NSR; rate controlled On Beta moises Not on anticoagulated due to anemia/GI bleeding Discharged home with home health Vital Signs: Date Time Temp Pulse Resp B/P Pulse Ox O2 Delivery O2 Flow Rate FiO2 09/01/16 16:33 36.2 100 20 97 Nasal Cannula 09/01/16 12:41 100 20 151/66 97 Nasal Cannula 4 09/01/16 12:19 98 20 148/70 98 Nasal Cannula 4 09/01/16 12:04 98 20 135/59 98 Nasal Cannula 4 09/01/16 11:20 98 20 96 Nasal Cannula 3.0 09/01/16 11:10 36.2 98 22 120/49 91 Nasal Cannula 4 09/01/16 10:53 36.4 94 20 149/74 94 Nasal Cannula 3.0 09/01/16 08:00 Nasal Cannula 3.0 09/01/16 07:49 36.4 94 20 149/74 94 Nasal Cannula 4.0 09/01/16 06:29 87 20 94 Nasal Cannula 4.0 08/31/16 23:59 Nasal Cannula 3.0 08/31/16 23:03 36.8 91 18 124/65 93 Nasal Cannula 3.0 08/31/16 20:50 88 134/70 95 Nasal Cannula 3.0 Lab Results: Results Past 24 Hours Test 08/31/16 20:41 09/01/16 07:30 09/01/16 07:34 09/01/16 12:51 Range/Units Bedside Glucose 226 193 181 70-90 mg/dl White Blood Count 10.91 4.8-10.8 K/uL Red Blood Count 3.47 4.2-5.4 M/uL Hemoglobin 8.5 12.0-16.0 g/dL Hematocrit 28.5 37-47 % Mean Corpuscular Volume 82.1 80-100 fL Mean Corpuscular Hemoglobin 24.5 25-34 pg Mean Corpuscular Hemoglobin Concent 29.8 32-36 g/dl Platelet Count 343 130-400 K/uL Mean Platelet Volume 9.4 7.4-10.4 fL Neutrophils (%) (Auto) 76.8 % Lymphocytes (%) (Auto) 8.2 % Monocytes (%) (Auto) 12.3 % Eosinophils (%) (Auto) 2.2 % Basophils (%) (Auto) 0.3 % Neutrophils # (Auto) 8.38 1.4-6.5 K/uL Lymphocytes # (Auto) 0.90 1.2-3.4 K/uL Monocytes # (Auto) 1.34 0.11-0.59 K/uL Eosinophils # (Auto) 0.24 0-0.5 K/uL Basophils # (Auto) 0.03 0-0.2 K/uL RDW Standard Deviation 56.0 36.4-46.3 fL RDW Coefficient of Variation 18.5 11.5-14.5 % Immature Granulocyte % (Auto) 0.2 % Immature Granulocyte # (Auto) 0.02 0.00-0.02 K/uL Large Platelets 1+ Hypochromasia PRESENT Anisocytosis PRESENT Sodium Level 134 136-145 mmol/L Potassium Level 4.5 3.5-5.1 mmol/L Chloride Level 96 98-107 mmol/L Carbon Dioxide Level 32 21-32 mmol/L Anion Gap 6.0 3-11 mmol/L Blood Urea Nitrogen 39 7-18 mg/dl Creatinine 1.30 0.60-1.20 mg/dl Est Creatinine Clear Calc Drug Dose 43.8 ml/min Estimated GFR () 47.1 Estimated GFR (Non- 40.7 BUN/Creatinine Ratio 29.8 10-20 Random Glucose 186 70-99 mg/dl Calcium Level 10.0 8.5-10.1 mg/dl
--- NOTE | 2016-09-01 18:58 | Discharge Summary ---
Discharge Summary Date of Service September 01, 2016. Discharge Summary Admission Date: August 25, 2016 at 23:58 Discharge Date: September 01, 2016 Discharge Disposition: Home with services Principal Diagnosis: GI BLEED CHRONIC SYMPTOMATIC ANEMIA SOB PLEURAL EFFUSIONS Secondary Diagnoses/Problems: chronic respiratory failure secondary to COPD on home O2, past tobacco abuse, cirrhosis secondary to nonalcoholic fatty liver disease, history of esophageal varices/diverticulosis, AVMs, polyps. hx portal vein thrombosis/paroxysmal atrial fibrillation off anticoagulation 2 to recurrent GI bleed, history of peripheral vascular disease as per records, DM2, insulin requiring; Chronic renal insufficiency, baseline creatinine of 1.5- 1.6. chronic anemia (baseline hemoglobin 9-10); endometrial cancer status post surgery, bladder tumor spx surgery Procedures: DUPLEX PORTAL HEPATIC VEINS: Retrograde flow in the splenic vein. Antegrade flow in all remaining venous structures. No evidence for thrombosis. CHEST CT: 1. Slight increase in size in the small right and moderate left pleural effusions. 2. Bilateral lower lobe consolidation which favors compressive atelectasis. However, a pneumonia could also have a similar appearance. This is similar to the prior study. 3. No significant change in the mild mediastinal lymphadenopathy. 4. Mild interlobular septal thickening. This may represent mild congestive change. S/P COLONOSCOPY Consultations: GI CRITICAL CARE PULMONARY Medication Reconciliation Continued Medications: Albuterol Sulfate (Proair Respiclick) 108 Mcg/Act Aer 2 PUFFS INH Q4 PRN for Shortness of Breath for 30 Days, #1 1 Refill Aspirin (Aspirin EC Low Dose) 81 Mg Ectab 81 MG PO 3XWK Atorvastatin (Lipitor) 80 Mg Tab 80 MG PO QPM, TAB Docusate Sodium (Docusate Sodium) 100 Mg Cap 100 MG PO BID for 20 Days, #40 CAP Furosemide (Lasix) 40 Mg Tab 40 MG PO BID Insulin Aspart (Novolog Flexpen) 100 Units/Ml Inj 30 UNITS SC BIDM BEFORE BREAKFAST AND LUNCH Insulin Aspart (Novolog Flexpen) 100 Units/Ml Inj 20-30 UNITS SC QPM BEFORE SUPPER Insulin Glargine (Lantus) 100 Unit/Ml Inj 45 UNITS SC BID, VIAL Latanoprost (Xalatan 0.005% Oph Cecilia) 0.005 % Cecilia 1 DROPS OPB HS for 90 Days, #7.5 ML 3 Refills Levothyroxine Sodium (Levothyroxine Sodium) 112 Mcg Tab 1 TAB PO QAM for 90 Days, #90 TAB 3 Refills Metoprolol Succ (Toprol Xl) (Toprol-Xl) 25 Mg Tabcr 25 MG PO BID, #30 TAB Pantoprazole (Pantoprazole Sodium) 40 Mg Tab 40 MG PO BID for 30 Days, #60 TAB 1 Refill Polyethylene (Miralax) 17 Gm Pow 17 GM PO DAILY for 30 Days, #30 1 Refill Rifaximin (Xifaxan) 550 Mg Tab 550 MG PO BID, TAB Spironolactone (Spironolactone) 100 Mg Tab 100 MG PO QAM for 30 Days, TAB 1 Refill Triamcinolone Acet (Aristocort 0.1%) 90 Appln/30 Gm Cr 1 APPLN TOP DAILY Venlafaxine Hcl (Effexor) 100 Mg Tab 100 MG PO DAILY TAKE WITH FOOD. Admission Information HPI (per Admitting provider): Medical history significant for chronic respiratory failure secondary to COPD on home O2, past tobacco abuse, cirrhosis secondary to nonalcoholic fatty liver disease, history of esophageal varices/diverticulosis, AVMs, polyps. hx portal vein thrombosis/paroxysmal atrial fibrillation off anticoagulation 2 to recurrent GI bleed, history of peripheral vascular disease as per records, DM2, insulin requiring; Chronic renal insufficiency, baseline creatinine of 1.5- 1.6. chronic anemia (baseline hemoglobin 9-10); endometrial cancer status post surgery, bladder tumor spx surgery Recent confinement last month for symptomatic anemia. EGD disclosed small esophageal varices, no other source of bleeding identified. Recommendation was to continue PPI b.i.d. Consider repeat colonoscopy given prior history of AVM, as per endoscopy notes. Patient discharged with a hemoglobin of 8.5. Continuous dark stools mixed with maroon stools since discharge from the hospital. No unusual abdominal pain. No emesis. Some nausea. Last week, increasing shortness of breath especially on exertion. No chest pain. No new cough sx. no unusual fluid retention. Compliant with home meds. At the Emergency Room, hemoglobin noted to be 5.7. Protonix, NSS bolus given at the ER. Physical Exam (per Admitting): VITAL SIGNS: Blood pressure was noted to be 130/50, pulse rate 88, RR 16, temperature 36.7, sats 89% on room air, later 97% on nasal cannula. SKIN: Pallor. GENERAL: Obese, no overt respiratory distress although patient occasionally speaks in phrases to catch her breath. HEENT: Pale palpebral conjunctivae. Dry mucosa. NECK: Short neck. LUNGS: Decreased breath sounds. HEART: Regular rate and rhythm. ABDOMEN: Some distention, nontender. EXTREMITIES: min LE edema. no tenderness NEUROLOGIC: No gross focality. Hospital Course SYMPTOMATIC ACUTE ON CHRONIC ANEMIA, Likely Chronic GI blood loss : As per and P: Presented with increasing SOB, lightheadedness, generalized weakness, likely secondary to anemia in setting of multiple chronic conditions- COPD, B/l Pleural effusion, GRAHAM cirrhosis. Has had multiple admissions in past for similar reason. Last one was last month 07/2016 when she was transfused PRBCs /EGD was done. Hg is 5.7 on presentation Most Likely Upper GI bleeding with hx of GRAHAM Cirrhosis, Portal HT, Varices. 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 Recent EGD last month 07/17/2016- small esophageal varices, no other source of bleeding identified. s/p 3 units of PRBCs so far with dose of IV Lasix 60 mg which improved symptoms --> Hb 7.8 today was on Protonix drip . Currently on Protonix 40 mg IV BID Dental cut soft diet + tolerating it well GI on board. No plans for any further intervention. s/p Colonoscopy unremarkable GI ok for discharge f/u labs with pcp WORSENING SOB : Mostlikely from volume overload from prbc transfusion which improved with iv lasix also has pleural effusions Left > right currently on albumin and Lasix dose increased sob improved pulmonary consulted and appreciate inputs. discharge on home diuretics NESTOR ON CKD STAGE IV- Improved baseline 1.1-1.3 cr 1.3 today GRAHAM CIRRHOSIS with ASCITES: Last paracentesis was on 05/29/16- 100cc chylous appearing fluid, WBC < 500, culture- no growth currently on lasix 60mg in am and 40mg in pm and Aldactone 100 mg daily On Rifaximin 550 mg PO BID, Colace BID, Miralex daily (Could not tolerate lactulose in past). d/c on home meds CHRONIC HYPOXIC RESPIRATORY FAILURE : Currently saturating well on 3 liters NC ( baseline as at home) Multifactorial: Underlying COPD, Chronic Bilateral pleural effusions, GRAHAM cirrhosis with portal HTN and ascites, normal EF on 2013 echo stable will monitor. H/O HEPATIC ENCEPHALOPATHY Mental status normal- AAOX3 as at baseline Ammonia level-41 On Rifaximin, Dulcolax, Colace. Unable to tolerate lactulose in past DM II Uncontrolled Last A1c: 9.9 02/2016 On -Lantus , ISS to be continued adjusting ISS Pharmacy consult placed HYPOTHYROIDISM: On Levothyroxine PAROXYSMAL AFIB currently in NSR; rate controlled On Beta moises Not on anticoagulated due to anemia/GI bleeding Discharged home with home health Total time spent on discharge = 40MINUTES This includes examination of the patient, discharge planning, medication reconciliation, and communication with other providers. Discharge Instructions Please take this sheet to every appointment for the next month Discharge Instructions Date of Service September 01, 2016. Admission Reason for Admission: Gi Bleed, Symptomatic Anemia Discharge Discharge Diagnosis / Problem: gi bleed, anemia. pleural effusions Discharge Goals Goal(s): Decrease discomfort, Improve function Activity Recommendations Activity Limitations: resume your previous activity . Instructions / Follow-Up Instructions / Follow-Up FOLLOWUP WITH FAMILY DOCTOR ON September AT 11AM. LAB: CBC IN ONE WEEK AND FOLLOW RESULTS WITH FAMILY DOCTOR. Current Hospital Diet Patient's current hospital diet: AHA Diet (Heart Healthy), Diabetes Type 2 Diet , Low Sodium Diet (2gm Na) Discharge Diet Recommended Diet: AHA Diet (Heart Healthy), Low Sodium Diet (2gm Na), Diabetes Type 2 Diet Procedures Procedures Performed: COLONOSCOPY WITH POLYPECTOMY Pending Studies Studies pending at discharge: no Laboratory Results Hemoglobin A1c Test 07/15/16 06:37 Range/Units Estimated Average Glucose 148 mg/dl Hemoglobin A1c 6.8 H 4.5-5.6 % Medical Emergencies . Who to Call and When: Medical Emergencies: If at any time you feel your situation is an emergency, please call 911 immediately. . Non-Emergent Contact Non-Emergency issues call your: Primary Care Provider . . "Provider Documentation" section prepared by Antonio Basilio. . VTE Core Measure Inpt VTE Proph given/why not?: SCD's
[2016-09-02] MEDS ORDERED: VENL100T2 PO (10:46)
[2016-09-02] MEDS ORDERED: RIFA550T2 PO (10:46)
[2016-09-02] MEDS ORDERED: METO25TA3 PO (10:47)
[2016-09-02] MEDS ORDERED: ATOR-26 PO (10:47)
[2016-09-02] MEDS ORDERED: LEVO112T4 PO (10:47)
[2016-09-02] MEDS ORDERED: INSDGI SC (11:39)
[2016-09-02] MEDS ORDERED: NVLGI/PEN SC ×2 (13:17)
[2016-09-02] MEDS ORDERED: FRS/40 PO (13:17)
[2016-09-02] MEDS ORDERED: TRMCR130WC TOP (13:17)
[2016-09-02] MEDS ORDERED: LATA0.009 OPB (13:17)
[2016-09-02] MEDS ORDERED: ASPEC81 PO (14:17)
[2016-09-02] MEDS ORDERED: ALBU18002 INH (20:08)
[2016-09-02] MEDS ORDERED: POLY335019 PO (20:08)
[2016-09-02] MEDS ORDERED: PANT40TA PO (20:08)
[2016-09-02] MEDS ORDERED: SPIR100T PO (20:08)
[2016-09-02] MEDS ORDERED: DOCU100C31 PO (20:08)
[2016-09-12] MEDS ORDERED: FRRS300 PO (16:20)
[2016-09-12] MEDS ORDERED: [UNRECOGNIZED DRUG - CODE] PO (16:20)
[2016-09-12] MEDS ORDERED: CRG40 PO (16:20)
== END 2016-09-01 16:59 | disposition home health service (06) | DRG 378 ==
LOC: ENRESERVDT → ENRESERVTM → EDBD 19:39 → C.EDB 19:42 → C.MSICU 23:58 → C.MS2W 08-26 13:03
PROVIDERS: ADMIT Internal Medicine; ATTEND Internal Medicine
PROC: 0DBL8ZX Excision of Transverse Colon, Via Natural or Artificial Opening Endoscopic, Diagnostic (ICD-10-PCS; principal; 2016-09-01 11:08)
DX: K92.2 Gastrointestinal hemorrhage, unspecified (principal); D50.0 Iron deficiency anemia secondary to blood loss (chronic); I50.30 Unspecified diastolic (congestive) heart failure; K76.6 Portal hypertension; J96.10 Chronic respiratory failure, unspecified whether with hypoxia or hypercapnia; J90 Pleural effusion, not elsewhere classified; N17.9 Acute kidney failure, unspecified; I13.0 Hypertensive heart and chronic kidney disease with heart failure and stage 1 through stage 4 chronic kidney disease, or unspecified chronic kidney disease; J98.11 Atelectasis; Z85.51 Personal history of malignant neoplasm of bladder; I85.10 Secondary esophageal varices without bleeding; K74.60 Unspecified cirrhosis of liver; D12.2 Benign neoplasm of ascending colon; N18.3 Chronic kidney disease, stage 3 (moderate); J44.9 Chronic obstructive pulmonary disease, unspecified; F32.9 Major depressive disorder, single episode, unspecified; E78.5 Hyperlipidemia, unspecified; I25.2 Old myocardial infarction; Z80.41 Family history of malignant neoplasm of ovary; Z99.81 Dependence on supplemental oxygen; Z87.891 Personal history of nicotine dependence; K76.0 Fatty (change of) liver, not elsewhere classified; Z86.718 Personal history of other venous thrombosis and embolism; I73.9 Peripheral vascular disease, unspecified; K57.90 Diverticulosis of intestine, part unspecified, without perforation or abscess without bleeding; E03.9 Hypothyroidism, unspecified

== ENCOUNTER 2016-09-02 19:23 | Inpatient (IN) | payer OTHER ==
[~2016-09-02] VITALS: Ht 167.6 cm; Wt 92.2 kg
[~2016-09-02 19:23] MED LIST changes: +ASPEC81 PO; +ATOR-26 PO; -DLC5 PO; +FRS/40 PO; +INSDGI SC; +LATA0.009 OPB; +LEVO112T4 PO; +METO25TA3 PO; +NVLGI/PEN SC; +RIFA550T2 PO; +TRMCR130WC TOP; +VENL100T2 PO
[2016-09-02] MEDS ORDERED: ALBUT/IPRATROP 3MG/0.5MG NEB 3 ML VIAL INH STA (19:37)
[2016-09-02] MEDS ORDERED: PANT40TA PO (20:08)
[2016-09-02] MEDS ORDERED: ALBU18002 INH (20:08)
[2016-09-02] MEDS ORDERED: POLY335019 PO (20:08)
[2016-09-02] MEDS ORDERED: DOCU100C31 PO (20:08)
[2016-09-02] MEDS ORDERED: SPIR100T PO (20:08)
--- NOTE | 2016-09-02 20:19 | DIAGNOSTIC IMAGING REPORT ---
SINGLE VIEW CHEST CLINICAL HISTORY: Dyspnea. Sepsis. FINDINGS: An AP, portable, upright chest radiograph is compared to study dated 08/31/2016 and correlated with chest CT dated 08/28/2016. The examination is degraded by portable technique and patient rotation. The heart is enlarged and there is atherosclerotic calcification of the thoracic aorta. There is pulmonary vascular congestion and interstitial edema, not significantly changed from 08/31/2016. There are layering pleural effusions with bibasilar consolidation, left larger than right. No pneumothorax is identified. The skeletal structures are osteopenic. The bony thorax is grossly intact. Degenerative change is noted in the thoracic spine. A left shoulder arthroplasty is in place. IMPRESSION: 1. Cardiomegaly with evidence of congestive failure and interstitial edema. This has not significant change from 08/31/2016. 2. Layering pleural effusions and bibasilar consolidation, left larger than right. This likely represents atelectasis. Cortical clinically for evidence of superimposed pneumonia. Electronically signed by: Jose Alejandro Ramos M.D. 09/02/2016 8:18 PM Dictated Date/Time: 09/02/2016 8:17 PM
[2016-09-02 20:52] LABS: HEMATOCRIT 28.6 % (37-47); MEAN CELL VOLUME 84.1 fL (80-100); MEAN CORPUSCULAR HEMOGLOBIN 24.7 pg (25-34); MEAN CORPUSCULAR HGB CONC 29.4 g/dl (32-36); MEAN PLATELET VOLUME 9.6 fL (7.4-10.4); PLATELET COUNT 363 K/uL (130-400)
[2016-09-02 20:53] LABS: INR 1.1 (0.9-1.1); PARTIAL THROMBOPLASTIN RATIO 1.2; PROTHROMBIN TIME (PATIENT) 11.8 SECONDS (9.0-12.0)
[2016-09-02 21:09] LABS: ALB/GLOB RATIO 0.9 (0.9-2); BUN/CREATININE RATIO 33.4 (10-20); CALCIUM 9.2 mg/dl (8.5-10.1); CREATININE 1.3 mg/dl (0.60-1.20); POTASSIUM 4.4 mmol/L (3.5-5.1)
[2016-09-02 21:11] LABS: ANISOCYTOSIS PRESENT; BASO % 0.3 %; BASO ABS # 0.03 K/uL (0-0.2); COMPLETE YES; EOS % 2.5 %; HYPOCHROMIA PRESENT; IG% 0.2 %; MONO % 13.7 %; NEUT % 76.3 %; POLYCHROMASIA 1+
[2016-09-02 21:15] LABS: MANUAL MICROSCOPIC REQUIRED? NO; REVIEW REQ? NO; URINE APPEARANCE CLEAR (CLEAR); URINE BILIRUBIN NEG (NEG); URINE COLOR YELLOW; URINE EPITHELIAL CELL AUTO 20-30 /lpf (0-5); URINE NITRITE NEG (NEG); URINE SPECIFIC GRAVITY 1.018 (1.000-1.030); UROBILINOGEN NEG (NEG); ZZURINE CULT IF INDIC CATH NO
[2016-09-02] MEDS ORDERED: FUROSEMIDE 40 MG/4 ML VIAL IV STA (21:29)
[2016-09-02] MEDS ORDERED: LEVALBUTEROL/IPRATROPIUM NEB INH SCH (23:45)
[2016-09-02] MEDS ORDERED: ACETAMINOPHEN 325 MG TAB PO PRN (23:45)
--- NOTE | 2016-09-02 23:59 | History and Physical ---
History & Physical Date & Time of Service: September 02, 2016 at 23:48 Chief Complaint: Sob/Lethargic Primary Care Physician: Yann Gutierrez D.O. History of Present Illness 75 year old female with history of Chronic respiratory failure secondary to COPD , Cirrhosis secondary to GRAHAM, Atrial Fibrillation off coumadin, DM, CKD, Anemia, presenting with lethargy and shortness of breath. Patient was discharged yesterday after being treated for anemia likely from GI bleed, s/p pRBC transfusion. Patient reports that she was progressively short of breath and weak at home upon discharge. Denies chest pain, headache, fever/chills, does have some productive cough. At the ER, CXR showed bilateral pleural effusion. She was given Lasix 40mg IV one dose and Duoneb. On my exam, patient was sleeping but easily rousable, drowsy. States she is feeling somewhat better,breathing has improved. Denies other symptoms. Past Medical/Surgical History Medical Problems: (1) Bladder cancer Status: Chronic (2) Cirrhosis of liver Permanent Comment: NAFLD Status: Chronic (3) CKD (chronic kidney disease), stage III Status: Chronic (4) COPD (chronic obstructive pulmonary disease) Status: Resolved (5) Depression Status: Chronic (6) Diabetes mellitus type 2 Status: Chronic (7) Diastolic CHF Status: Chronic (8) Dyslipidemia Status: Chronic (9) GERD (gastroesophageal reflux disease) Status: Chronic (10) GI bleed Status: Resolved (11) History of adenomatous polyp of colon Status: Chronic (12) History of bladder cancer Status: Chronic (13) History of endometrial cancer Status: Chronic (14) Hypothyroidism Status: Chronic (15) Iron deficiency anemia Status: Chronic (16) NSTEMI (non-ST elevated myocardial infarction) Permanent Comment: in the setting of acute illness, no EKG or echo findings of ACS Status: Chronic (17) Paroxysmal a-fib Status: Chronic (18) Portal hypertension Permanent Comment: esophageal varices Status: Chronic (19) Portal vein thrombosis Status: Chronic Surgical Problems: (1) H/O colonoscopy with polypectomy Permanent Comment: 09/2015- 2 polyps removed with clips placed, diverticulosis, medium sized lipoma in ascending colon, small AVMs in cecum Status: Chronic (2) H/O esophagogastroduodenoscopy Permanent Comment: 04/2015- scarring, grade I varices, duodenal polyps, portal hypertensive gastropathy Status: Chronic (3) Status post excision bladder tumor Permanent Comment: 2011 Status: Chronic (4) Status post hysterectomy Permanent Comment: endometrial carcinoma Status: Chronic Family History FH: ovarian cancer MOTHER Social History Smoking Status: Former Smoker Marital Status: Housing status: lives with significant other Occupational Status: retired Immunizations History of Influenza Vaccine: Yes Influenza Vaccine Date: Feb 09, 2016 History of Tetanus Vaccine?: Yes Tetanus Immunization Date: August 31, 2006 History of Pneumococcal: Yes Pneumococcal Date: Feb 24, 2016 History of Hepatitis B Vaccine: Yes Hepatitis Immunization Date: Mar 30, 2008 Multi-Drug Resistant Organisms History of MDRO: No Allergies Coded Allergies: Iron Dextran (Verified Allergy, Severe, IRON INFUSIONS - COULDN'T BREATH - THROAT CLOSING, 05/28/16) Dobutamine (Verified Allergy, Intermediate, DIFFICULTY SWALLOWING, 05/28/16 ) Home Medications Scheduled Aspirin (Aspirin EC Low Dose), 81 MG PO 3XWK Atorvastatin (Lipitor), 80 MG PO QPM Docusate Sodium (Docusate Sodium), 1 CAP PO BID Furosemide (Lasix), 40 MG PO BID Insulin Aspart (Novolog Flexpen), 30 UNITS SC BIDM Insulin Aspart (Novolog Flexpen), 20-30 UNITS SC QPM Insulin Glargine (Lantus), 45 UNITS SC BID Latanoprost (Xalatan 0.005% Oph Cecilia), 1 DROPS OPB HS Levothyroxine Sodium (Levothyroxine Sodium), 1 TAB PO QAM Metoprolol Succ (Toprol Xl) (Toprol-Xl), 25 MG PO BID Pantoprazole (Protonix), 40 MG PO BID Polyethylene Glycol 3350 (Miralax), 17 GM PO DAILY Rifaximin (Xifaxan), 550 MG PO BID Spironolactone (Aldactone), 100 MG PO QAM Triamcinolone Acet (Aristocort 0.1%), 1 APPLN TOP DAILY Venlafaxine Hcl (Effexor), 100 MG PO DAILY Scheduled PRN Albuterol Sulfate (Proair Respiclick), 2 PUFFS INH Q4 PRN for SOB/Wheezing Review of Systems Constitutional- (+) as noted above Eyes- no acute visual changes ENT- no sinus drainage; no pharyngitis Pulmonary- (+) as noted above Cardiac- no chest pain, no palpitations, no orthopnea, no dependent edema GI- no nausea, no vomiting, no diarrhea, no melena, no hematochezia - no dysuria, no hematuria Musculoskeletal- no arthralgias, no myalgias Derm- no rashes, no new skin lesions, no changing skin lesions Hematologic- no unusual bruising, no unusual bleeding Lymphatics- no adenopathy Endocrine- no polyuria or polydipsia; no heat or cold intolerance Neuro- no headaches, no focal neurologic symptoms Psych- no anxiety, no depression Physical Exam Vital Signs Date Time Temp Pulse Resp B/P Pulse Ox O2 Delivery O2 Flow Rate FiO2 09/02/16 22:01 102 17 149/73 96 Nasal Cannula 3.5 09/02/16 21:16 101 24 161/71 96 Nasal Cannula 3.5 09/02/16 19:46 99 09/02/16 19:42 Nasal Cannula 3.5 09/02/16 19:35 37.1 101 24 167/59 95 Nasal Cannula 3.5 General Appearance: WD/WN, no apparent distress Head: normocephalic, atraumatic Eyes: normal inspection, PERRL, EOMI, sclerae normal ENT: normal ENT inspection, hearing grossly normal, pharynx normal Neck: supple, no adenopathy, thyroid normal, no JVD, trachea midline Respiratory/Chest: chest non-tender, + pertinent finding (decreased breath sounds bilateral bases, no wheezing) Cardiovascular: regular rate, rhythm, no JVD, no murmur, normal peripheral pulses, + pertinent finding (mild lower leg edema, erythema) Abdomen/GI: normal bowel sounds, non tender, soft Back: normal inspection, no CVA tenderness Extremities/Musculoskelatal: + pertinent finding ((+) lower leg edema, mild, erythema, no tenderness) 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/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: 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, no motor/sensory deficits, normal mood/affect, oriented x 3, + pertinent finding (somewhat drowsy) Skin: normal color, warm/dry, no rash Diagnostics Laboratory Results Results Past 24 Hours Test 09/02/16 20:25 09/02/16 20:27 09/02/16 20:50 09/02/16 23:38 Range/Units White Blood Count 11.50 4.8-10.8 K/uL Red Blood Count 3.40 4.2-5.4 M/uL Hemoglobin 8.4 12.0-16.0 g/dL Hematocrit 28.6 37-47 % Mean Corpuscular Volume 84.1 80-100 fL Mean Corpuscular Hemoglobin 24.7 25-34 pg Mean Corpuscular Hemoglobin Concent 29.4 32-36 g/dl Platelet Count 363 130-400 K/uL Mean Platelet Volume 9.6 7.4-10.4 fL Neutrophils (%) (Auto) 76.3 % Lymphocytes (%) (Auto) 7.0 % Monocytes (%) (Auto) 13.7 % Eosinophils (%) (Auto) 2.5 % Basophils (%) (Auto) 0.3 % Neutrophils # (Auto) 8.78 1.4-6.5 K/uL Lymphocytes # (Auto) 0.80 1.2-3.4 K/uL Monocytes # (Auto) 1.58 0.11-0.59 K/uL Eosinophils # (Auto) 0.29 0-0.5 K/uL Basophils # (Auto) 0.03 0-0.2 K/uL RDW Standard Deviation 56.2 36.4-46.3 fL RDW Coefficient of Variation 18.2 11.5-14.5 % Immature Granulocyte % (Auto) 0.2 % Immature Granulocyte # (Auto) 0.02 0.00-0.02 K/uL Polychromasia 1+ Hypochromasia PRESENT Anisocytosis PRESENT Prothrombin Time 11.8 9.0-12.0 SECONDS Prothromb Time International Ratio 1.1 0.9-1.1 Activated Partial Thromboplast Time 31.2 21.0-31.0 SECONDS Partial Thromboplastin Ratio 1.2 Sodium Level 141 136-145 mmol/L Potassium Level 4.4 3.5-5.1 mmol/L Chloride Level 100 98-107 mmol/L Carbon Dioxide Level 38 21-32 mmol/L Anion Gap 3.0 3-11 mmol/L Blood Urea Nitrogen 43 7-18 mg/dl Creatinine 1.30 0.60-1.20 mg/dl Est Creatinine Clear Calc Drug Dose 44.5 ml/min Estimated GFR () 47.1 Estimated GFR (Non- 40.7 BUN/Creatinine Ratio 33.4 10-20 Random Glucose 205 70-99 mg/dl Calcium Level 9.2 8.5-10.1 mg/dl Total Bilirubin 1.0 0.2-1 mg/dl Aspartate Amino Transf (AST/SGOT) 16 15-37 U/L Alanine Aminotransferase (ALT/SGPT) 17 12-78 U/L Alkaline Phosphatase 129 45-117 U/L Troponin I < 0.015 0-0.045 ng/ml Pro-B-Type Natriuretic Peptide 350 0-900 pg/ml Total Protein 7.7 6.4-8.2 gm/dl Albumin 3.6 3.4-5.0 gm/dl Globulin 4.1 2.5-4.0 gm/dl Albumin/Globulin Ratio 0.9 0.9-2 Bedside Lactic Acid Venous 0.80 0.90-1.70 mmol/L Urine Color YELLOW Urine Appearance CLEAR CLEAR Urine pH 5.0 4.5-7.5 Urine Specific [place] 1.018 1.000-1.030 Urine Protein 2+ NEG Urine Glucose (UA) NEG NEG Urine Ketones NEG NEG Urine Occult Blood TRACE NEG Urine Nitrite NEG NEG Urine Bilirubin NEG NEG Urine Urobilinogen NEG NEG Urine Leukocyte Esterase NEG NEG Urine WBC (Auto) 1-5 0-5 /hpf Urine RBC (Auto) 5-10 0-4 /hpf Urine Hyaline Casts (Auto) 5-10 0-5 /lpf Urine Epithelial Cells (Auto) 20-30 0-5 /lpf Urine Bacteria (Auto) NEG NEG Test 09/02/16 23:39 Range/Units Microbiology Results 09/02/16 Blood Culture, Received Pending 09/02/16 Blood Culture, Received Pending Diagnostic Radiology CXR CLINICAL HISTORY: Dyspnea. Sepsis. FINDINGS: An AP, portable, upright chest radiograph is compared to study dated 08/31/2016 and correlated with chest CT dated 08/28/2016. The examination is degraded by portable technique and patient rotation. The heart is enlarged and there is atherosclerotic calcification of the thoracic aorta. There is pulmonary vascular congestion and interstitial edema, not significantly changed from 08/31/2016. There are layering pleural effusions with bibasilar consolidation, left larger than right. No pneumothorax is identified. The skeletal structures are osteopenic. The bony thorax is grossly intact. Degenerative change is noted in the thoracic spine. A left shoulder arthroplasty is in place. IMPRESSION: 1. Cardiomegaly with evidence of congestive failure and interstitial edema. This has not significant change from 08/31/2016. 2. Layering pleural effusions and bibasilar consolidation, left larger than right. This likely represents atelectasis. Cortical clinically for evidence of superimposed pneumonia. EKG pending Impression Assessment and Plan 75 year old female with history of Chronic respiratory failure secondary to COPD , Cirrhosis secondary to GRAHAM, Atrial Fibrillation off coumadin, DM, CKD, Anemia, presenting with lethargy and shortness of breath. SHORTNESS OF BREATH, LETHARGY CHRONIC RESPIRATORY FAILURE - likely from: BILATERAL PLEURAL EFFUSION 1 dose Lasix 40mg IV given may need additional IV Lasix monitor I&O, crea for now resume PO lasix and spironolactone nebs q4h POSSIBLE PNEUMONIA check blood and sputum cultures empiric Zosyn and Levaquin speech eval to r/o aspiration - check ammonia, ABG, CT head COPD no wheezing on exam CIRRHOSIS continue PO diuretics, Rifaximin check ammonia ATRIAL FIBRILLATION HISTORY EKG pending DM 2 hold usual Insulin regimen while NPO resume PO intake once more awake ISS for now Pharm consult CKD stable ANEMIA stable since 09/01 monitor DVT prophylaxis anticoag contraindicated due to gi bleed history (+) leg swelling, check Doppler legs to r/o DVT before starting SCDs Full Code Dispo pending may need SNF VTE Prophylaxis VTE Risk Assessment Done? Y/N: Yes Risk Level: Moderate
[2016-09-03] VITALS (11 sets, daily range): BP systolic 118–156; BP diastolic 45–68; PULSE 86–109; TEMP 36.4–37; O2SAT 94–98; Ht 167.6 cm; Wt 92.2 kg
[2016-09-03] MEDS ORDERED: GLUCOSE 10 TABS/TUBE PO PRN
[2016-09-03] MEDS ORDERED: DEXTROSE 50% 50 ML SYR IV PRN
[2016-09-03] MEDS ORDERED: GLUCAGON FOR INJ 1 MG VIAL SQ PRN
[2016-09-03] MEDS ORDERED: GLUCOSE 40% GEL 15 GM TUBE PO PRN
[2016-09-03 00:20] LABS: ARTERIAL BLOOD GAS BASE EXCESS 7.4 mEq/L (-9-1.8); ARTERIAL BLOOD GAS HCO3 35 mmol/L (19-24); ARTERIAL BLOOD GAS PO2 92 mm/Hg (80-95); ARTERIAL BLOOD GAS pH 7.35 (7.35-7.45)
[2016-09-03 00:21] LABS: ALLEN TEST POS (POS); O2 ADMINISTRATION 4L
[2016-09-03] MEDS ORDERED: LEVOFLOXACIN CONSULT ACTIVE PRN (01:08)
[2016-09-03] MEDS ORDERED: PIPERACILL/TAZOBAC CONSULT ACTIVE PRN (01:08)
--- NOTE | 2016-09-03 01:29 | EMERGENCY ROOM VISIT NOTE ---
History Report prepared by Lara: Mary Prabhakar Under the Supervision of: Dr. Shilo Arteaga M.D. First contact with patient: 19:28 Chief Complaint: LETHARGIC Stated Complaint: SOB/LETHARGIC History of Present Illness The patient is a 75 year old female who presents to the Emergency Room with complaints of worsening lethargy that started yesterday. The patient came to the ED via ambulance. The patient's called the ambulance because he felt that the patient was lethargic. The history is limited secondary to the patient being a poor historian. The patient did not sleep well last night and she states that could be contributing to her lethargy. She is unsure of if she has experienced fevers, but denies headache, chest pain, abdominal pain, and abdominal distention. The patient is unsure of when she last experienced melena , hematochezia, or rectal bleeding. The patient was recently admitted to the hospital for GI bleeding and symptomatic anemia. She discharged from the hospital yesterday. She is also experiencing shortness of breath, which she states started yesterday after being discharged. The patient states that her bilateral lower extremities are always erythematous. Source of History: patient, nursing staff History Limited By: other (poor historian) Onset: yesterday Position: other (global) Quality: other (lethargy) Timing: worsening Associated Symptoms: + SOB, No abdominal pain, No chest pain, No headache Note: no abdominal distention Review of Systems See HPI for pertinent positives & negatives. ROS limited secondary to the patient being a poor historian. Past Medical & Surgical Medical Problems: (1) Bladder cancer (2) Cirrhosis of liver (3) CKD (chronic kidney disease), stage III (4) COPD (chronic obstructive pulmonary disease) (5) Depression (6) Diabetes mellitus type 2 (7) Diastolic CHF (8) Dyslipidemia (9) GERD (gastroesophageal reflux disease) (10) GI bleed (11) History of adenomatous polyp of colon (12) History of bladder cancer (13) History of endometrial cancer (14) Hypothyroidism (15) Iron deficiency anemia (16) NSTEMI (non-ST elevated myocardial infarction) (17) Paroxysmal a-fib (18) Pleural effusion (19) Portal hypertension (20) Portal vein thrombosis (21) Symptomatic anemia Surgical Problems: (1) H/O colonoscopy with polypectomy (2) H/O esophagogastroduodenoscopy (3) Status post excision bladder tumor (4) Status post hysterectomy Family History FH: ovarian cancer MOTHER Social History Smoking Status: Former Smoker Alcohol Use: none Marital Status: Housing Status: lives with family Occupation Status: retired Current/Historical Medications Scheduled Aspirin (Aspirin EC Low Dose), 81 MG PO 3XWK Atorvastatin (Lipitor), 80 MG PO QPM Docusate Sodium (Docusate Sodium), 1 CAP PO BID Furosemide (Lasix), 40 MG PO BID Insulin Aspart (Novolog Flexpen), 30 UNITS SC BIDM Insulin Aspart (Novolog Flexpen), 20-30 UNITS SC QPM Insulin Glargine (Lantus), 45 UNITS SC BID Latanoprost (Xalatan 0.005% Oph Cecilia), 1 DROPS OPB HS Levothyroxine Sodium (Levothyroxine Sodium), 1 TAB PO QAM Metoprolol Succ (Toprol Xl) (Toprol-Xl), 25 MG PO BID Pantoprazole (Protonix), 40 MG PO BID Polyethylene Glycol 3350 (Miralax), 17 GM PO DAILY Rifaximin (Xifaxan), 550 MG PO BID Spironolactone (Aldactone), 100 MG PO QAM Triamcinolone Acet (Aristocort 0.1%), 1 APPLN TOP DAILY Venlafaxine Hcl (Effexor), 100 MG PO DAILY Scheduled PRN Albuterol Sulfate (Proair Respiclick), 2 PUFFS INH Q4 PRN for SOB/Wheezing Allergies Coded Allergies: Iron Dextran (Verified Allergy, Severe, IRON INFUSIONS - COULDN'T BREATH - THROAT CLOSING, 05/28/16) Dobutamine (Verified Allergy, Intermediate, DIFFICULTY SWALLOWING, 05/28/16 ) Physical Exam Vital Signs Date Time Temp Pulse Resp B/P Pulse Ox O2 Delivery O2 Flow Rate FiO2 09/02/16 22:01 102 17 149/73 96 Nasal Cannula 3.5 09/02/16 21:16 101 24 161/71 96 Nasal Cannula 3.5 09/02/16 19:46 99 09/02/16 19:42 Nasal Cannula 3.5 09/02/16 19:35 37.1 101 24 167/59 95 Nasal Cannula 3.5 Physical Exam Constitutional: Vital signs reviewed. Eyes: Pupils are equal round reactive to light. Conjunctiva are noninjected. ENT: Pharynx is clear without erythema or exudate. Mucous membranes are moist. Neck supple without meningeal signs. Respiratory: Bilateral wheezing. Breath sounds are equal bilaterally. Cardiovascular: Regular rate and rhythm. No rubs or gallops. GI: Soft, nondistended and nontender. Bowel sounds are present. Musculoskeletal: No peripheral edema. No lower extremity tenderness. Integumentary: No cyanosis. Neurological: The patient is awake but somnolent. Patient follows commands. No focal deficits. Psychiatric: Normal affect. Medical Decision & Procedures ER Provider Diagnostic Interpretation: X-ray results as stated below per interpretation by me and the radiologist: SINGLE VIEW CHEST FINDINGS: An AP, portable, upright chest radiograph is compared to study dated 08/31/2016 and correlated with chest CT dated 08/28/2016. The examination is degraded by portable technique and patient rotation. The heart is enlarged and there is atherosclerotic calcification of the thoracic aorta. There is pulmonary vascular congestion and interstitial edema, not significantly changed from 08/31/2016. There are layering pleural effusions with bibasilar consolidation, left larger than right. No pneumothorax is identified. The skeletal structures are osteopenic. The bony thorax is grossly intact. Degenerative change is noted in the thoracic spine. A left shoulder arthroplasty is in place. IMPRESSION: 1. Cardiomegaly with evidence of congestive failure and interstitial edema. This has not significant change from 08/31/2016. 2. Layering pleural effusions and bibasilar consolidation, left larger than right. This likely represents atelectasis. Cortical clinically for evidence of superimposed pneumonia. Electronically signed by: Jose Alejandro Ramos M.D. 09/02/2016 8:18 PM Dictated Date/Time: 09/02/2016 8:17 PM Laboratory Results 09/02/16 20:25 Red Blood Count 3.40, Mean Corpuscular Volume 84.1, Mean Corpuscular Hemoglobin 24.7, Mean Corpuscular Hemoglobin Concent 29.4, Mean Platelet Volume 9.6, Neutrophils (%) (Auto) 76.3, Lymphocytes (%) (Auto) 7.0, Monocytes (%) (Auto) 13.7, Eosinophils (%) (Auto) 2.5, Basophils (%) (Auto) 0.3, Neutrophils # (Auto ) 8.78, Lymphocytes # (Auto) 0.80, Monocytes # (Auto) 1.58, Eosinophils # (Auto ) 0.29, Basophils # (Auto) 0.03 09/02/16 20:25 Test 09/02/16 20:25 09/02/16 20:27 09/02/16 20:50 White Blood Count 11.50 K/uL (4.8-10.8) Red Blood Count 3.40 M/uL (4.2-5.4) Hemoglobin 8.4 g/dL (12.0-16.0) Hematocrit 28.6 % (37-47) Mean Corpuscular Volume 84.1 fL (80-100) Mean Corpuscular Hemoglobin 24.7 pg (25-34) Mean Corpuscular Hemoglobin Concent 29.4 g/dl (32-36) Platelet Count 363 K/uL (130-400) Mean Platelet Volume 9.6 fL (7.4-10.4) Neutrophils (%) (Auto) 76.3 % Lymphocytes (%) (Auto) 7.0 % Monocytes (%) (Auto) 13.7 % Eosinophils (%) (Auto) 2.5 % Basophils (%) (Auto) 0.3 % Neutrophils # (Auto) 8.78 K/uL (1.4-6.5) Lymphocytes # (Auto) 0.80 K/uL (1.2-3.4) Monocytes # (Auto) 1.58 K/uL (0.11-0.59) Eosinophils # (Auto) 0.29 K/uL (0-0.5) Basophils # (Auto) 0.03 K/uL (0-0.2) RDW Standard Deviation 56.2 fL (36.4-46.3) RDW Coefficient of Variation 18.2 % (11.5-14.5) Immature Granulocyte % (Auto) 0.2 % Immature Granulocyte # (Auto) 0.02 K/uL (0.00-0.02) Polychromasia 1+ Hypochromasia PRESENT Anisocytosis PRESENT Prothrombin Time 11.8 SECONDS (9.0-12.0) Prothromb Time International Ratio 1.1 (0.9-1.1) Activated Partial Thromboplast Time 31.2 SECONDS (21.0-31.0) Partial Thromboplastin Ratio 1.2 Anion Gap 3.0 mmol/L (3-11) Est Creatinine Clear Calc Drug Dose 44.5 ml/min Estimated GFR () 47.1 Estimated GFR (Non- 40.7 BUN/Creatinine Ratio 33.4 (10-20) Calcium Level 9.2 mg/dl (8.5-10.1) Total Bilirubin 1.0 mg/dl (0.2-1) Aspartate Amino Transf (AST/SGOT) 16 U/L (15-37) Alanine Aminotransferase (ALT/SGPT) 17 U/L (12-78) Alkaline Phosphatase 129 U/L (45-117) Troponin I < 0.015 ng/ml (0-0.045) Pro-B-Type Natriuretic Peptide 350 pg/ml (0-900) Total Protein 7.7 gm/dl (6.4-8.2) Albumin 3.6 gm/dl (3.4-5.0) Globulin 4.1 gm/dl (2.5-4.0) Albumin/Globulin Ratio 0.9 (0.9-2) Bedside Lactic Acid Venous 0.80 mmol/L (0.90-1.70) Urine Color YELLOW Urine Appearance CLEAR (CLEAR) Urine pH 5.0 (4.5-7.5) Urine Specific [place] 1.018 (1.000-1.030) Urine Protein 2+ (NEG) Urine Glucose (UA) NEG (NEG) Urine Ketones NEG (NEG) Urine Occult Blood TRACE (NEG) Urine Nitrite NEG (NEG) Urine Bilirubin NEG (NEG) Urine Urobilinogen NEG (NEG) Urine Leukocyte Esterase NEG (NEG) Urine WBC (Auto) 1-5 /hpf (0-5) Urine RBC (Auto) 5-10 /hpf (0-4) Urine Hyaline Casts (Auto) 5-10 /lpf (0-5) Urine Epithelial Cells (Auto) 20-30 /lpf (0-5) Urine Bacteria (Auto) NEG (NEG) Laboratory results as reviewed by me. Medications Administered Medications (Trade) Dose Ordered Sig/[place]gil Route Start Time Stop Time Status Last Admin Dose Admin Albuterol/ Ipratropium (Duoneb) 3 ml NOW STAT INH 09/02/16 19:37 09/02/16 19:39 DC 09/02/16 20:00 3 ML Furosemide (Lasix Inj) 40 mg NOW STAT IV 09/02/16 21:29 09/02/16 21:30 DC 09/03/16 00:24 40 MG Diphenhydramine HCl (Benadryl Cap) 25 mg NOW ONCE PO 09/02/16 22:30 09/02/16 22:31 DC 09/02/16 22:40 25 MG ECG Indication: SOB/dyspnea Rate (beats per minute): 101 Rhythm: sinus tachycardia Findings: RBBB, no ectopy ED Course 1930: The patient was evaluated in room A11. A complete history and physical exam was performed. 1936: Ordered DuoNeb 3 ml INH 2124: Upon reevaluation, the patient was resting comfortably. I discussed the results with her. She is a little less altered than earlier evaluation. She verbalized understanding and agreement with the treatment plan. She will be evaluated for further management. 2126: I spoke with Dr. Butler of [facility]. We discussed the patient and her results. The patient will be further evaluated by him. 2128: Ordered Lasix Inj 40 mg IV 2224: The nurse informed me that the patient would like some Benadryl because she feels itchy. 2229: Ordered Benadryl Cap 25 mg PO Medical Decision This is a 75-year-old female who presents with shortness breath and lethargy. Differential diagnosis includes pneumonia, sepsis, pleural effusion, COPD exacerbation, pulmonary edema, anemia, insomnia. I did perform a limited focused review of portions of the patient's old chart on the electronic medical record. The patient was admitted on August 25 for a GI bleed and chronic symptomatic anemia with shortness of breath and pleural effusions. She was discharged yesterday. An EGD showed small esophageal varices. Her hemoglobin was 8.5 when she was discharged yesterday. Medication Reconciliation: I attest that I have personally reviewed the patient' s current medication list. Blood Pressure Screening: Patient was found to have an elevated blood pressure and was referred to their primary doctor for recheck and further treatment. I did evaluate the patient as noted above. IV access was established. The patient was placed on a continuous diagnostic cardiac sonographer. I did treat the patient with a DuoNeb. I did order and personally review the patient's 12-lead EKG and chest x-ray as described above. She does appear to have asked findings consistent with CHF. I did treat her with Lasix IV. I did order and review the patient's blood work as noted in the electronic medical record. I did reassess the patient. She is more alert and her breathing is improved. She does not have any wheezing on exam. I did discuss the test results with the patient and her . Her feels that she is still somewhat lethargic and having labored breathing. She could not sleep last night according to him because she could not get comfortable. He states that the last time she was here today considered draining the pleural effusion. She will be hospitalized for further care and evaluation. I did discuss case with the hospitalist and disease case manager rn. Consults Time Called: 2125 Consulting Physician: Dr. Carrie Chino Returned Call: [address] Butler of [facility]. We discussed the patient and her results. The patient will be further evaluated by him. Impression Primary Impression: COPD exacerbation Additional Impressions: CHF exacerbation Bilateral pleural effusion Scribe Attestation The scribe's documentation has been prepared under my direct and personally reviewed by me in its entirety. I confirm that the note above accurately reflects all work, treatment, procedures, and medical decision making performed by me. Departure Information Dispostion Being Evaluated By Hospitalist Referrals Yann Gutierrez D.O. (PCP) Patient Instructions My [facility] Problem Qualifiers Additional Impressions: CHF exacerbation Congestive heart failure type: unspecified congestive heart failure type Qualified Codes: I50.9 - Heart failure, unspecified
[2016-09-03] MEDS ORDERED: PHARMACY GLYCEMIC MGMT CONSULT PRN (01:30)
[2016-09-03] MEDS ORDERED: PIPERACILL/TAZOBAC IV 3.375 GM in DEXTROSE 5% 100ML IV ONE (02:00)
[2016-09-03] MEDS: PIPERACILL/TAZOBAC IV 3.375 GM in DEXTROSE 5% 100ML IV SCH ×2 (02:41→16:09)
[2016-09-03] MEDS: IPRATROPIUM BROMIDE NEB SOLN 0.02% 2.5 ML VIAL INH SCH ×6 (04:14→23:22)
[2016-09-03] MEDS: LEVALBUTEROL 1.25MG/0.5ML NEB INH SCH ×6 (04:14→23:23)
[2016-09-03] MEDS: LEVOFLOXACIN 750MG / D5W IV SCH (04:18)
[2016-09-03 06:29] LABS: HEMATOCRIT 28.4 % (37-47); MEAN CELL VOLUME 83.5 fL (80-100); MEAN CORPUSCULAR HEMOGLOBIN 24.1 pg (25-34); MEAN CORPUSCULAR HGB CONC 28.9 g/dl (32-36); MEAN PLATELET VOLUME 9.2 fL (7.4-10.4); PLATELET COUNT 337 K/uL (130-400); WHITE BLOOD COUNT 9.99 K/uL (4.8-10.8)
[2016-09-03] MEDS: LEVOTHYROXINE 112 MCG TAB PO SCH (06:30)
[2016-09-03] MEDS: INSULIN ASPART 100 UNITS/ML 3 ML PEN SC SCH ×4 (06:32→20:53)
[2016-09-03 07:08] LABS: BUN/CREATININE RATIO 33.6 (10-20); CALCIUM 9.1 mg/dl (8.5-10.1); CREATININE 1.2 mg/dl (0.60-1.20); POTASSIUM 4.2 mmol/L (3.5-5.1)
[2016-09-03 07:09] LABS: ANISOCYTOSIS PRESENT; COMPLETE YES; HYPOCHROMIA PRESENT; IG% 0.2 %; LYMPH % 9.4 %; LYMPH ABS # 0.94 K/uL (1.2-3.4); MONO % 13.9 %; NEUT % 73.5 %; POLYCHROMASIA 1+
--- NOTE | 2016-09-03 07:24 | DIAGNOSTIC IMAGING REPORT ---
BILATERAL LOWER EXTREMITY VENOUS DOPPLER CLINICAL HISTORY: Lower extremity edema. COMPARISON STUDY: Bilateral lower extremity venous Doppler April 12, 2011. TECHNIQUE: Sonography of the deep venous system of the bilateral lower extremities was performed. Compression and augmentation were evaluated. FINDINGS: The bilateral common femoral, superficial femoral and popliteal veins were compressible. Augmentation was normal. Flow was shown within the deep calf vessels although the calf vessels were suboptimally assessed on this exam. IMPRESSION: No evidence of deep venous thrombus within the bilateral lower extremities. Electronically signed by: Rao Mcgrath M.D. 09/03/2016 7:23 AM Dictated Date/Time: 09/03/2016 7:22 AM
[2016-09-03] MEDS: DOCUSATE SODIUM 100 MG CAP PO SCH ×2 (08:01→20:38)
[2016-09-03] MEDS: POLYETHYLENE (MIRALAX) 17 GM PACK PO SCH (08:01)
[2016-09-03] MEDS: SPIRONOLACTONE 100 MG TAB PO SCH (08:02)
[2016-09-03] MEDS: METOPROLOL SUCC 25MG EXT REL TAB PO SCH ×2 (08:02→20:39)
[2016-09-03] MEDS: TRIAMCINOLONE ACET 0.1% CR 15 GM TUBE EXT SCH (08:03)
[2016-09-03] MEDS: PANTOprazole SOD 40 MG TAB PO SCH ×2 (08:03→20:38)
[2016-09-03] MEDS: RIFAXIMIN TAB 550 MG TAB PO SCH ×2 (08:03→20:39)
[2016-09-03] MEDS: VENLAFAXINE HCL 50 MG TAB PO SCH (08:03)
[2016-09-03] MEDS ORDERED: FUROSEMIDE 40 MG TAB PO SCH (09:00)
--- NOTE | 2016-09-03 09:07 | DIAGNOSTIC IMAGING REPORT ---
CT OF THE HEAD WITHOUT CONTRAST CLINICAL HISTORY: Lethargic. Evaluate for cerebrovascular accident. COMPARISON STUDY: Head CT December 01, 2014. TECHNIQUE: Helical axial images of the head were obtained without IV contrast. Automated exposure control was utilized for the study. FINDINGS: No acute intracranial hemorrhage, midline shift or mass effect is present. Ventricular system is stable. Basilar cisterns are patent. Butts-white differentiation is maintained. There are no findings to suggest acute dural sinus thrombosis or acute territorial infarct. No calvarial abnormalities are present. There is moderate mucosal thickening of the right sphenoid sinus. There is mild mucosal thickening of the remainder of the sinuses. IMPRESSION: No acute intracranial findings. Electronically signed by: Rao Mcgrath M.D. 09/03/2016 9:06 AM Dictated Date/Time: 09/03/2016 9:04 AM
[2016-09-03] MEDS ORDERED: INSULIN GLARGINE SOLOSTAR 100 UNITS/ML 3 ML PEN SC SCH ×3 (09:15→16:45)
[2016-09-03] MEDS: LACTULOSE SYRUP 30 GM/45 ML UDP PO SCH ×3 (09:45→20:36)
--- NOTE | 2016-09-03 11:46 | Pharmacy Progress Note ---
Glycemic Control Intl Consult Date of Service September 03, 2016. Scope Glycemic Pharmacist consulted by Dr Butler on 09/03/16 for glycemic control and to write orders per [facility] inpatient glycemic control protocol Objective Weight (Kilograms): 93.000 Accuchecks BSG (last 24hrs): Test 09/02/16 20:25 09/03/16 01:19 09/03/16 06:07 09/03/16 06:12 Random Glucose 205 mg/dl (70-99) 187 mg/dl (70-99) Bedside Glucose 169 mg/dl (70-90) 184 mg/dl (70-90) HbA1c 6.8% on 07/15/16 note: this was after blood transfusions Recent Pertinent Medications Outpatient Anti-diabetic Regimen: * Lantus 45 units SQ BID * NovoLog /-30 The patient is currently receiving: * Basal insulin: Lantus -- units every -- hours {none ordered} * Correctional Insulin: Novolog Correction per scale ACHS Goal Range: Low 140 mg/dL - High 180 mg/dL Correction Factor: 20 mg/dL/unit * Prandial insulin: Per carb ratio of 1 unit per 7 grams CHO consumed Risk Factors for Insulin Resistance: * Infection Assessment & Plan ASSESSMENT: * 75yo T2DM female known to pharmacy from previous admissions/glycemic consults. * Pt takes large doses of insulin as an outpatient but usually requires about half of outpatient dosing while admitted * Pt is NPO --> expect insulin needs to be less than previous admissions when taking full diet & sometimes ordered prednisone. * Will start with low stress weight based dosing and titrate based on BSG trends. * ADA & AACE recommend a goal blood sugar range 140-180 mg/dl for the majority of critically ill & non-critically ill patients. However, more stringent targets may be selected in individual cases. PLAN FOR INPATIENT GLYCEMIC CONTROL: * Basal insulin per weight weight and stress of 1 while NPO * Lantus 10 units SQ BID * OK to give while NPO {this is significantly reduced dosing compared to outpatient and previous admission} * Bolus insulin, parameters per previous admission glycemic data * NovoLog per scale ACHS or Q6hrs while NPO * Goal Range: Low 140 mg/dL - High 180 mg/dL * Correction Factor: 20 mg/dL/unit * Nutritional / Prandial insulin per carb ratio of 1 unit per 7 grams CHO consumed * Please note that the plan above was derived based on current level of insulin resistance and hospital stress. These recommendations are appropriate for inpatient admission only. Plan of care upon discharge will need to be reassessed to avoid potential outpatient hypo/hyperglycemia. Thank you.
[2016-09-03 11:50] LABS: ALLEN TEST POS (POS); ARTERIAL BLD GAS O2 SATURATION 92.6 % (90-95); ARTERIAL BLOOD GAS BASE EXCESS 10.3 mEq/L (-9-1.8); ARTERIAL BLOOD GAS HCO3 36 mmol/L (19-24); ARTERIAL BLOOD GAS PO2 78 mm/Hg (80-95); O2 ADMINISTRATION 3
[2016-09-03] MEDS: METHYLPREDNISOLONE IV 40 MG in SYRINGE 0 ML IV SCH ×2 (14:54→20:39)
[2016-09-03] MEDS: FUROSEMIDE 40 MG TAB PO SCH (16:09)
--- NOTE | 2016-09-03 17:19 | Progress Note ---
Internal Med Progress Note Date of Service: September 03, 2016. Provider Documentation: SUBJECTIVE: says after she was discharged got more sob with minimal exertion and then was lethargic currently alert and awake and sob improved denies chest pain says she does not like lactulose afebrile has some cough hemodynamics stable OBJECTIVE: Vital Signs-as noted below Exam: General-alert and awake and oriented x 3. ENT-Normal hearing Neck-no neck masses Lungs-cta b/l mild bibasilar wheezing no crackles Heart-s1 and s2 heard regular rate and rhythm no murmurs Abdomen-soft bowel sounds present non tender no distension Extremities- no edema present chronic skin changes in lower extremity Neuro-alert and awake oriented moves extremities Lab data as noted below. 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 SHORTNESS OF BREATH, LETHARGY Acute on CHRONIC RESPIRATORY FAILURE Most likely from: BILATERAL PLEURAL EFFUSION copd and co2 retention on ABG possible pneumonia sleep apnea? received iv lasix in e on Levaquin and iv steroids Pulmonary recommends bipap q hs improving COPD on abx and steroids nebs CIRRHOSIS continue PO diuretics, Rifaximin ammonia 57 received a dose of lactulose and refuses to take more. ATRIAL FIBRILLATION HISTORY on Toprol xl will monitor DM 2 on Lantus and iss monitor while on iv steroids Pharm consult CKD stable ANEMIA stable since 09/01 will monitor DVT prophylaxis anticoag contraindicated due to gi bleed history SCDs Full Code Dispo monitor in tele p/o when more stable may need SNF DVT PROPHYLAXIS [] DISPOSITION [] Vital Signs: Date Time Temp Pulse Resp B/P Pulse Ox O2 Delivery O2 Flow Rate FiO2 09/03/16 15:30 37.0 100 22 129/67 96 Nasal Cannula 3.0 09/03/16 15:17 102 18 98 Nasal Cannula 3.0 09/03/16 12:02 Nasal Cannula 3.0 09/03/16 11:25 36.6 101 24 134/68 96 Nasal Cannula 2.0 09/03/16 11:12 97 18 97 Nasal Cannula 3.0 09/03/16 08:04 Nasal Cannula 3.0 09/03/16 07:34 36.5 109 24 137/60 96 Nasal Cannula 3.0 09/03/16 07:02 105 18 96 Nasal Cannula 3.0 09/03/16 04:15 96 20 96 Nasal Cannula 4.0 09/03/16 04:00 Nasal Cannula 3.5 09/03/16 03:30 36.7 101 20 146/66 97 Room Air 09/03/16 01:30 36.9 103 16 156/59 94 Nasal Cannula 3.0 09/03/16 00:29 101 16 145/60 96 09/03/16 00:01 101 16 145/60 96 Nasal Cannula 3.5 09/02/16 22:01 102 17 149/73 96 Nasal Cannula 3.5 09/02/16 21:16 101 24 161/71 96 Nasal Cannula 3.5 09/02/16 19:46 99 09/02/16 19:42 Nasal Cannula 3.5 09/02/16 19:35 37.1 101 24 167/59 95 Nasal Cannula 3.5 Lab Results: Results Past 24 Hours Test 09/02/16 20:25 09/02/16 20:27 09/02/16 20:50 09/02/16 23:53 Range/Units White Blood Count 11.50 4.8-10.8 K/uL Red Blood Count 3.40 4.2-5.4 M/uL Hemoglobin 8.4 12.0-16.0 g/dL Hematocrit 28.6 37-47 % Mean Corpuscular Volume 84.1 80-100 fL Mean Corpuscular Hemoglobin 24.7 25-34 pg Mean Corpuscular Hemoglobin Concent 29.4 32-36 g/dl Platelet Count 363 130-400 K/uL Mean Platelet Volume 9.6 7.4-10.4 fL Neutrophils (%) (Auto) 76.3 % Lymphocytes (%) (Auto) 7.0 % Monocytes (%) (Auto) 13.7 % Eosinophils (%) (Auto) 2.5 % Basophils (%) (Auto) 0.3 % Neutrophils # (Auto) 8.78 1.4-6.5 K/uL Lymphocytes # (Auto) 0.80 1.2-3.4 K/uL Monocytes # (Auto) 1.58 0.11-0.59 K/uL Eosinophils # (Auto) 0.29 0-0.5 K/uL Basophils # (Auto) 0.03 0-0.2 K/uL RDW Standard Deviation 56.2 36.4-46.3 fL RDW Coefficient of Variation 18.2 11.5-14.5 % Immature Granulocyte % (Auto) 0.2 % Immature Granulocyte # (Auto) 0.02 0.00-0.02 K/uL Polychromasia 1+ Hypochromasia PRESENT Anisocytosis PRESENT Prothrombin Time 11.8 9.0-12.0 SECONDS Prothromb Time International Ratio 1.1 0.9-1.1 Activated Partial Thromboplast Time 31.2 21.0-31.0 SECONDS Partial Thromboplastin Ratio 1.2 Sodium Level 141 136-145 mmol/L Potassium Level 4.4 3.5-5.1 mmol/L Chloride Level 100 98-107 mmol/L Carbon Dioxide Level 38 21-32 mmol/L Anion Gap 3.0 3-11 mmol/L Blood Urea Nitrogen 43 7-18 mg/dl Creatinine 1.30 0.60-1.20 mg/dl Est Creatinine Clear Calc Drug Dose 44.5 ml/min Estimated GFR () 47.1 Estimated GFR (Non- 40.7 BUN/Creatinine Ratio 33.4 10-20 Random Glucose 205 70-99 mg/dl Calcium Level 9.2 8.5-10.1 mg/dl Total Bilirubin 1.0 0.2-1 mg/dl Aspartate Amino Transf (AST/SGOT) 16 15-37 U/L Alanine Aminotransferase (ALT/SGPT) 17 12-78 U/L Alkaline Phosphatase 129 45-117 U/L Troponin I < 0.015 0-0.045 ng/ml Pro-B-Type Natriuretic Peptide 350 0-900 pg/ml Total Protein 7.7 6.4-8.2 gm/dl Albumin 3.6 3.4-5.0 gm/dl Globulin 4.1 2.5-4.0 gm/dl Albumin/Globulin Ratio 0.9 0.9-2 Bedside Lactic Acid Venous 0.80 0.90-1.70 mmol/L Urine Color YELLOW Urine Appearance CLEAR CLEAR Urine pH 5.0 4.5-7.5 Urine Specific [place] 1.018 1.000-1.030 Urine Protein 2+ NEG Urine Glucose (UA) NEG NEG Urine Ketones NEG NEG Urine Occult Blood TRACE NEG Urine Nitrite NEG NEG Urine Bilirubin NEG NEG Urine Urobilinogen NEG NEG Urine Leukocyte Esterase NEG NEG Urine WBC (Auto) 1-5 0-5 /hpf Urine RBC (Auto) 5-10 0-4 /hpf Urine Hyaline Casts (Auto) 5-10 0-5 /lpf Urine Epithelial Cells (Auto) 20-30 0-5 /lpf Urine Bacteria (Auto) NEG NEG Arterial Blood pH 7.35 7.35-7.45 Arterial Blood Partial Pressure CO2 65 35-46 mmHg Arterial Blood Partial Pressure O2 92 80-95 mm/Hg Arterial Blood HCO3 35 19-24 mmol/L Arterial Blood Oxygen Saturation 96.0 90-95 % Arterial Blood Base Excess 7.4 -9-1.8 mEq/L Arterial Blood Gas Delivery 4L Akin Test POS POS Ammonia 57.0 11-32 umol/L Test 09/03/16 01:19 09/03/16 06:07 09/03/16 06:12 09/03/16 11:20 Range/Units Bedside Glucose 169 184 161 70-90 mg/dl White Blood Count 9.99 4.8-10.8 K/uL Red Blood Count 3.40 4.2-5.4 M/uL Hemoglobin 8.2 12.0-16.0 g/dL Hematocrit 28.4 37-47 % Mean Corpuscular Volume 83.5 80-100 fL Mean Corpuscular Hemoglobin 24.1 25-34 pg Mean Corpuscular Hemoglobin Concent 28.9 32-36 g/dl Platelet Count 337 130-400 K/uL Mean Platelet Volume 9.2 7.4-10.4 fL Neutrophils (%) (Auto) 73.5 % Lymphocytes (%) (Auto) 9.4 % Monocytes (%) (Auto) 13.9 % Eosinophils (%) (Auto) 2.0 % Basophils (%) (Auto) 1.0 % Neutrophils # (Auto) 7.34 1.4-6.5 K/uL Lymphocytes # (Auto) 0.94 1.2-3.4 K/uL Monocytes # (Auto) 1.39 0.11-0.59 K/uL Eosinophils # (Auto) 0.20 0-0.5 K/uL Basophils # (Auto) 0.10 0-0.2 K/uL RDW Standard Deviation 56.4 36.4-46.3 fL RDW Coefficient of Variation 18.5 11.5-14.5 % Immature Granulocyte % (Auto) 0.2 % Immature Granulocyte # (Auto) 0.02 0.00-0.02 K/uL Polychromasia 1+ Hypochromasia PRESENT Anisocytosis PRESENT Sodium Level 142 136-145 mmol/L Potassium Level 4.2 3.5-5.1 mmol/L Chloride Level 101 98-107 mmol/L Carbon Dioxide Level 36 21-32 mmol/L Anion Gap 5.0 3-11 mmol/L Blood Urea Nitrogen 40 7-18 mg/dl Creatinine 1.20 0.60-1.20 mg/dl Est Creatinine Clear Calc Drug Dose 48.0 ml/min Estimated GFR () 51.9 Estimated GFR (Non- 44.8 BUN/Creatinine Ratio 33.6 10-20 Random Glucose 187 70-99 mg/dl Calcium Level 9.1 8.5-10.1 mg/dl Test 09/03/16 11:40 09/03/16 16:18 Range/Units Arterial Blood pH 7.40 7.35-7.45 Arterial Blood Partial Pressure CO2 60 35-46 mmHg Arterial Blood Partial Pressure O2 78 80-95 mm/Hg Arterial Blood HCO3 36 19-24 mmol/L Arterial Blood Oxygen Saturation 92.6 90-95 % Arterial Blood Base Excess 10.3 -9-1.8 mEq/L Arterial Blood Gas Delivery 3 Akin Test POS POS Bedside Glucose 207 70-90 mg/dl Microbiology Results 09/02/16 Blood Culture, Received Pending 09/02/16 Blood Culture, Received Pending
--- NOTE | 2016-09-03 17:26 | Pulmonary Consultation ---
History General Date of Service: September 03, 2016. 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 returned to the hospital fro shortness of breath 24 hours after being discharged. She was in [facility] August 25-September 01 for GI bleeding, s/p transfusions. She was discharged on BID Lasix 40 mg. Denies fever, chills, sputum production Received IV Lasix in ED, feels slightly better now, to me she looks the same way when I saw her during last admission. She carries a diagnosis of COPD, but no recollection of PFTs done. Historian: patient Review of Systems Constitutional: reports: no symptoms Eyes: reports: no symptoms ENT: reports: no symptoms Cardiovascular: reports: edema Respiratory: reports: PERALES, shortness of breath Genitourinary - Female: reports: no symptoms Musculoskeletal: reports: no symptoms Integumentary: reports: no symptoms Neurologic: reports: no symptoms Psychiatric: reports: no symptoms Past Medical History Past Medical History: COPD, depression, diabetes, GERD, GI bleed, glaucoma, high cholesterol, hypothyroidism, liver disease, other Past Surgical History: colonoscopy, EGD, hysterectomy, other Family History FH: ovarian cancer MOTHER Social History Hx Tobacco Use In Past Year?: No Smoking Status: Former Smoker Drug Use: none Marital status: Housing status: lives with significant other Occupational Status: retired Immunizations History of Influenza Vaccine: Yes Influenza Vaccine Date: Feb 09, 2016 History of Tetanus Vaccine?: Yes Tetanus Immunization Date: August 31, 2006 History of Pneumococcal: Yes Pneumococcal Date: Feb 24, 2016 History of Hepatitis B Vaccine: Yes Hepatitis Immunization Date: Mar 30, 2008 History of MDRO History of MDRO: No Allergies Coded Allergies: Iron Dextran (Verified Allergy, Severe, IRON INFUSIONS - COULDN'T BREATH - THROAT CLOSING, 05/28/16) Dobutamine (Verified Allergy, Intermediate, DIFFICULTY SWALLOWING, 05/28/16 ) Current Medications Reported Home Medications Medications Dose Route/Sig Max Daily Dose Days Date Category Dose Instructions Aldactone (Spironolactone) 100 Mg Tab 100 Mg PO QAM 09/02/16 Reported Miralax (Polyethylene Glycol 3350) 1 Pow Pow 17 Gm PO DAILY 09/02/16 Reported Protonix (Pantoprazole Sodium) 40 Mg Tab 40 Mg PO BID 09/02/16 Reported Docusate Sodium 100 Mg Cap 1 Cap PO BID 7 09/02/16 Reported Proair Respiclick (Albuterol Sulfate) 108 Mcg/Act Aer 2 Puffs INH Q4 PRN 09/02/16 Reported Xalatan 0.005% Oph Cecilia (Latanoprost) 0.005 % Cecilia 1 Drops OPB HS 90 07/14/16 Reported Lasix (Furosemide) 40 Mg Tab 40 Mg PO BID 07/14/16 Reported Aristocort 0.1% (Triamcinolone Acet) 90 Appln/30 Gm Cr 1 Appln TOP DAILY 07/14/16 Reported Novolog Flexpen (Insulin Aspart) 100 Units/Ml Inj 20-30 Units SC QPM 07/14/16 Reported BEFORE SUPPER Novolog Flexpen (Insulin Aspart) 100 Units/Ml Inj 30 Units SC BIDM 07/14/16 Reported BEFORE BREAKFAST AND LUNCH Aspirin EC Low Dose (Aspirin) 81 Mg Ectab 81 Mg PO 3XWK 05/28/16 Reported Lantus (Insulin Glargine) 100 Unit/Ml Inj 45 Units SC BID 05/28/16 Reported Levothyroxine Sodium 112 Mcg Tab 1 Tab PO QAM 90 10/27/15 Reported Toprol-Xl (Metoprolol Succinate) 25 Mg Tabcr 25 Mg PO BID 10/27/15 Reported Lipitor (Atorvastatin Calcium) 80 Mg Tab 80 Mg PO QPM 10/27/15 Reported Effexor (Venlafaxine Hcl) 100 Mg Tab 100 Mg PO DAILY 10/27/15 Reported TAKE WITH FOOD. Xifaxan (Rifaximin) 550 Mg Tab 550 Mg PO BID 10/27/15 Reported Physical Physical Exam Vital Signs: Date Time Temp Pulse Resp B/P Pulse Ox O2 Delivery O2 Flow Rate FiO2 09/03/16 15:30 37.0 100 22 129/67 96 Nasal Cannula 3.0 09/03/16 15:17 102 18 98 Nasal Cannula 3.0 09/03/16 12:02 Nasal Cannula 3.0 09/03/16 11:25 36.6 101 24 134/68 96 Nasal Cannula 2.0 09/03/16 11:12 97 18 97 Nasal Cannula 3.0 09/03/16 08:04 Nasal Cannula 3.0 09/03/16 07:34 36.5 109 24 137/60 96 Nasal Cannula 3.0 09/03/16 07:02 105 18 96 Nasal Cannula 3.0 09/03/16 04:15 96 20 96 Nasal Cannula 4.0 09/03/16 04:00 Nasal Cannula 3.5 09/03/16 03:30 36.7 101 20 146/66 97 Room Air 09/03/16 01:30 36.9 103 16 156/59 94 Nasal Cannula 3.0 09/03/16 00:29 101 16 145/60 96 09/03/16 00:01 101 16 145/60 96 Nasal Cannula 3.5 09/02/16 22:01 102 17 149/73 96 Nasal Cannula 3.5 09/02/16 21:16 101 24 161/71 96 Nasal Cannula 3.5 09/02/16 19:46 99 09/02/16 19:42 Nasal Cannula 3.5 09/02/16 19:35 37.1 101 24 167/59 95 Nasal Cannula 3.5 General Appearance: WELL-APPEARING, NO APPARENT DISTRESS Eyes: PERRLA Neck: TRACHEA MIDLINE, NO STRIDOR Respiratory: wheezing (faint), other (Diminished bibasilar breath sounds) Cardiovasular: NORMAL S1S2 Abdomen: NON TENDER, NO GUARDING, other (obese/distended) Upper Extremities: NO EDEMA Lower Extremities: edema Neuro: ALERT, ORIENTED x 3 Psychiatric: NORMAL AFFECT Diagnostics Labs Results Past 24 Hours Test 09/02/16 20:25 09/02/16 20:27 09/02/16 20:50 09/02/16 23:53 Range/Units White Blood Count 11.50 4.8-10.8 K/uL Red Blood Count 3.40 4.2-5.4 M/uL Hemoglobin 8.4 12.0-16.0 g/dL Hematocrit 28.6 37-47 % Mean Corpuscular Volume 84.1 80-100 fL Mean Corpuscular Hemoglobin 24.7 25-34 pg Mean Corpuscular Hemoglobin Concent 29.4 32-36 g/dl Platelet Count 363 130-400 K/uL Mean Platelet Volume 9.6 7.4-10.4 fL Neutrophils (%) (Auto) 76.3 % Lymphocytes (%) (Auto) 7.0 % Monocytes (%) (Auto) 13.7 % Eosinophils (%) (Auto) 2.5 % Basophils (%) (Auto) 0.3 % Neutrophils # (Auto) 8.78 1.4-6.5 K/uL Lymphocytes # (Auto) 0.80 1.2-3.4 K/uL Monocytes # (Auto) 1.58 0.11-0.59 K/uL Eosinophils # (Auto) 0.29 0-0.5 K/uL Basophils # (Auto) 0.03 0-0.2 K/uL RDW Standard Deviation 56.2 36.4-46.3 fL RDW Coefficient of Variation 18.2 11.5-14.5 % Immature Granulocyte % (Auto) 0.2 % Immature Granulocyte # (Auto) 0.02 0.00-0.02 K/uL Polychromasia 1+ Hypochromasia PRESENT Anisocytosis PRESENT Prothrombin Time 11.8 9.0-12.0 SECONDS Prothromb Time International Ratio 1.1 0.9-1.1 Activated Partial Thromboplast Time 31.2 21.0-31.0 SECONDS Partial Thromboplastin Ratio 1.2 Sodium Level 141 136-145 mmol/L Potassium Level 4.4 3.5-5.1 mmol/L Chloride Level 100 98-107 mmol/L Carbon Dioxide Level 38 21-32 mmol/L Anion Gap 3.0 3-11 mmol/L Blood Urea Nitrogen 43 7-18 mg/dl Creatinine 1.30 0.60-1.20 mg/dl Est Creatinine Clear Calc Drug Dose 44.5 ml/min Estimated GFR () 47.1 Estimated GFR (Non- 40.7 BUN/Creatinine Ratio 33.4 10-20 Random Glucose 205 70-99 mg/dl Calcium Level 9.2 8.5-10.1 mg/dl Total Bilirubin 1.0 0.2-1 mg/dl Aspartate Amino Transf (AST/SGOT) 16 15-37 U/L Alanine Aminotransferase (ALT/SGPT) 17 12-78 U/L Alkaline Phosphatase 129 45-117 U/L Troponin I < 0.015 0-0.045 ng/ml Pro-B-Type Natriuretic Peptide 350 0-900 pg/ml Total Protein 7.7 6.4-8.2 gm/dl Albumin 3.6 3.4-5.0 gm/dl Globulin 4.1 2.5-4.0 gm/dl Albumin/Globulin Ratio 0.9 0.9-2 Bedside Lactic Acid Venous 0.80 0.90-1.70 mmol/L Urine Color YELLOW Urine Appearance CLEAR CLEAR Urine pH 5.0 4.5-7.5 Urine Specific [place] 1.018 1.000-1.030 Urine Protein 2+ NEG Urine Glucose (UA) NEG NEG Urine Ketones NEG NEG Urine Occult Blood TRACE NEG Urine Nitrite NEG NEG Urine Bilirubin NEG NEG Urine Urobilinogen NEG NEG Urine Leukocyte Esterase NEG NEG Urine WBC (Auto) 1-5 0-5 /hpf Urine RBC (Auto) 5-10 0-4 /hpf Urine Hyaline Casts (Auto) 5-10 0-5 /lpf Urine Epithelial Cells (Auto) 20-30 0-5 /lpf Urine Bacteria (Auto) NEG NEG Arterial Blood pH 7.35 7.35-7.45 Arterial Blood Partial Pressure CO2 65 35-46 mmHg Arterial Blood Partial Pressure O2 92 80-95 mm/Hg Arterial Blood HCO3 35 19-24 mmol/L Arterial Blood Oxygen Saturation 96.0 90-95 % Arterial Blood Base Excess 7.4 -9-1.8 mEq/L Arterial Blood Gas Delivery 4L Akin Test POS POS Ammonia 57.0 11-32 umol/L Test 09/03/16 01:19 09/03/16 06:07 09/03/16 06:12 09/03/16 11:20 Range/Units Bedside Glucose 169 184 161 70-90 mg/dl White Blood Count 9.99 4.8-10.8 K/uL Red Blood Count 3.40 4.2-5.4 M/uL Hemoglobin 8.2 12.0-16.0 g/dL Hematocrit 28.4 37-47 % Mean Corpuscular Volume 83.5 80-100 fL Mean Corpuscular Hemoglobin 24.1 25-34 pg Mean Corpuscular Hemoglobin Concent 28.9 32-36 g/dl Platelet Count 337 130-400 K/uL Mean Platelet Volume 9.2 7.4-10.4 fL Neutrophils (%) (Auto) 73.5 % Lymphocytes (%) (Auto) 9.4 % Monocytes (%) (Auto) 13.9 % Eosinophils (%) (Auto) 2.0 % Basophils (%) (Auto) 1.0 % Neutrophils # (Auto) 7.34 1.4-6.5 K/uL Lymphocytes # (Auto) 0.94 1.2-3.4 K/uL Monocytes # (Auto) 1.39 0.11-0.59 K/uL Eosinophils # (Auto) 0.20 0-0.5 K/uL Basophils # (Auto) 0.10 0-0.2 K/uL RDW Standard Deviation 56.4 36.4-46.3 fL RDW Coefficient of Variation 18.5 11.5-14.5 % Immature Granulocyte % (Auto) 0.2 % Immature Granulocyte # (Auto) 0.02 0.00-0.02 K/uL Polychromasia 1+ Hypochromasia PRESENT Anisocytosis PRESENT Sodium Level 142 136-145 mmol/L Potassium Level 4.2 3.5-5.1 mmol/L Chloride Level 101 98-107 mmol/L Carbon Dioxide Level 36 21-32 mmol/L Anion Gap 5.0 3-11 mmol/L Blood Urea Nitrogen 40 7-18 mg/dl Creatinine 1.20 0.60-1.20 mg/dl Est Creatinine Clear Calc Drug Dose 48.0 ml/min Estimated GFR () 51.9 Estimated GFR (Non- 44.8 BUN/Creatinine Ratio 33.6 10-20 Random Glucose 187 70-99 mg/dl Calcium Level 9.1 8.5-10.1 mg/dl Test 09/03/16 11:40 Range/Units Arterial Blood pH 7.40 7.35-7.45 Arterial Blood Partial Pressure CO2 60 35-46 mmHg Arterial Blood Partial Pressure O2 78 80-95 mm/Hg Arterial Blood HCO3 36 19-24 mmol/L Arterial Blood Oxygen Saturation 92.6 90-95 % Arterial Blood Base Excess 10.3 -9-1.8 mEq/L Arterial Blood Gas Delivery 3 Akin Test POS POS Microbiology Results 09/02/16 Blood Culture, Received Pending 09/02/16 Blood Culture, Received Pending Diagnostic Radiology 09/02 Lower ext US: FINDINGS: The bilateral common femoral, superficial femoral and popliteal veins were compressible. Augmentation was normal. Flow was shown within the deep calf vessels although the calf vessels were suboptimally assessed on this exam. IMPRESSION: No evidence of deep venous thrombus within the bilateral lower extremities. 09/02 CXR: 1. Cardiomegaly with evidence of congestive failure and interstitial edema. This has not significant change from 08/31/2016. 2. Layering pleural effusions and bibasilar consolidation, left larger than right. This likely represents atelectasis. Cortical clinically for evidence of superimposed pneumonia. 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 Hypercarbic respiratory failure COPD Liver cirrhosis secondary to GRAHAM with ascites Plan: No plan to perform thoracentesis. Aggressive diuresis Increase AM Lasix to 60 mg, continue Lasix 40 mg in PM On Spironolactone Recommend to start nocturnal BIPAP, she should qualify for home use of BIPAP too , given baseline pCO2 of 60. Add Symbicort empirically Bronchodilators Will sign off for the time being, reconsult as needed
[2016-09-03] MEDS: BUDESONIDE/FORMOTEROL FUMARATE 80/4.5 60 PUFFS/INHALER INH SCH (20:37)
[2016-09-03] MEDS: LATANOPROST 0.005% OP SOLN 2.5 ML BTL OPB SCH (20:37)
[2016-09-03] MEDS: ATORVASTATIN 40 MG TAB PO SCH (20:38)
[2016-09-04] VITALS (13 sets, daily range): BP systolic 115–148; BP diastolic 46–66; PULSE 94–133; TEMP 36.4–36.9; O2SAT 94–97
[2016-09-04] MEDS: PIPERACILL/TAZOBAC IV 3.375 GM in DEXTROSE 5% 100ML IV SCH ×3 (01:18→16:17)
[2016-09-04] MEDS: INSULIN ASPART 100 UNITS/ML 3 ML PEN SC SCH ×6 (01:18→21:00)
[2016-09-04] MEDS: LEVALBUTEROL 1.25MG/0.5ML NEB INH SCH ×6 (03:06→23:44)
[2016-09-04] MEDS: IPRATROPIUM BROMIDE NEB SOLN 0.02% 2.5 ML VIAL INH SCH ×6 (03:06→23:44)
[2016-09-04] MEDS ORDERED: INSULIN REGULAR 10 UNITS in SYRINGE 9.9 ML IV ONE (04:45)
[2016-09-04] MEDS: METHYLPREDNISOLONE IV 40 MG in SYRINGE 0 ML IV SCH ×2 (05:04→12:21)
[2016-09-04] MEDS: LEVOTHYROXINE 112 MCG TAB PO SCH (05:05)
[2016-09-04 05:50] LABS: HEMATOCRIT 26.6 % (37-47); IG% 0.2 %; LYMPH % 4.8 %; LYMPH ABS # 0.48 K/uL (1.2-3.4); MEAN CELL VOLUME 82.1 fL (80-100); MEAN CORPUSCULAR HEMOGLOBIN 24.7 pg (25-34); MEAN CORPUSCULAR HGB CONC 30.1 g/dl (32-36); MEAN PLATELET VOLUME 9.1 fL (7.4-10.4); MONO % 2.1 %; NEUT % 92.9 %; PLATELET COUNT 326 K/uL (130-400); RED BLOOD COUNT 3.24 M/uL (4.2-5.4); WHITE BLOOD COUNT 9.97 K/uL (4.8-10.8)
[2016-09-04 06:07] LABS: BUN/CREATININE RATIO 25.9 (10-20); CALCIUM 9.2 mg/dl (8.5-10.1); CREATININE 1.7 mg/dl (0.60-1.20); POTASSIUM 4.4 mmol/L (3.5-5.1)
[2016-09-04 06:13] LABS: COMPLETE YES
[2016-09-04] MEDS: BUDESONIDE/FORMOTEROL FUMARATE 80/4.5 60 PUFFS/INHALER INH SCH ×2 (08:54→20:01)
[2016-09-04] MEDS: TRIAMCINOLONE ACET 0.1% CR 15 GM TUBE EXT SCH (08:54)
[2016-09-04] MEDS: PANTOprazole SOD 40 MG TAB PO SCH ×2 (08:55→20:02)
[2016-09-04] MEDS: LACTULOSE SYRUP 30 GM/45 ML UDP PO SCH ×3 (08:55→20:01)
[2016-09-04] MEDS: SPIRONOLACTONE 100 MG TAB PO SCH (08:55)
[2016-09-04] MEDS: RIFAXIMIN TAB 550 MG TAB PO SCH ×2 (08:55→20:03)
[2016-09-04] MEDS: VENLAFAXINE HCL 50 MG TAB PO SCH (08:56)
[2016-09-04] MEDS: DOCUSATE SODIUM 100 MG CAP PO SCH ×2 (08:56→20:01)
[2016-09-04] MEDS: ASPIRIN 81 MG ECTAB PO SCH (08:56)
[2016-09-04] MEDS: METOPROLOL SUCC 25MG EXT REL TAB PO SCH ×2 (08:56→20:03)
[2016-09-04] MEDS: POLYETHYLENE (MIRALAX) 17 GM PACK PO SCH (08:57)
[2016-09-04] MEDS: FUROSEMIDE 40 MG TAB PO SCH ×2 (08:58→16:05)
[2016-09-04] MEDS: INSULIN GLARGINE SOLOSTAR 100 UNITS/ML 3 ML PEN SC SCH ×2 (09:04→21:32)
--- NOTE | 2016-09-04 10:37 | Pharmacy Progress Note ---
Glycemic Control: Progress Nt Date of Service September 04, 2016. Scope Glycemic Pharmacist consulted for glycemic control and to write orders per [facility] inpatient glycemic control protocol. Objective Accuchecks BSG (last 24hrs): Test 09/03/16 11:20 09/03/16 16:18 09/03/16 20:06 09/04/16 01:08 Bedside Glucose 161 mg/dl (70-90) 207 mg/dl (70-90) 311 mg/dl (70-90) 301 mg/dl (70-90) Test 09/04/16 04:09 09/04/16 05:38 09/04/16 06:23 Bedside Glucose 317 mg/dl (70-90) 250 mg/dl (70-90) Random Glucose 268 mg/dl (70-99) Laboratory Data (last 24hrs) HbA1c: 6.8% on 07/15/16 however, this was drawn after blood transfusion Recent Pertinent Medications Outpatient Anti-diabetic Regimen: * Lantus 45 units SQ BID * NovoLog /- The patient is currently receiving: * Basal insulin: Lantus 45 units every 12 hours * Correctional Insulin: Novolog Correction per scale ACHS Goal Range: Low 140 mg/dL - High 180 mg/dL Correction Factor: 15 mg/dL/unit * Prandial insulin: Per carb ratio of 1 unit per 6 grams CHO consumed Risk Factors for Insulin Resistance: * Steroids * Infection Assessment & Plan ASSESSMENT: Initial: * 75yo T2DM female known to pharmacy from previous admissions/glycemic consults. * Pt takes large doses of insulin as an outpatient but usually requires about half of outpatient dosing while admitted * Typically 45 -185 units/day depending on PO intake and steroid dosing * Degree of outpatient control is presumed adequate per recent A1c but reliability of A1c result is questionable as it was drawn after transfusions 09/04/16: * Pt received 87 units of insulin on 09/03 with poor glycemic control * 55 units basal {as Lantus 10 units AM + Lantus 45units PM} * 32 units of prandial/correctional insulin * Many changes yesterday (09/03) which have deteriorated glycemic control. * Pt NPO --> Diet. Was given reduced basal insulin dose in AM for NPO as pt typically requires about half of outpatient dosing while admitted. Was given normal outpatient Lantus dose in the evening after tolerating PO. * Started on Solumedrol 40mg IV Q8hrs --> steroid induced hyperglycemia. BSGs 207, 311, 301, 317, 250 since starting solumedrol. PLAN FOR INPATIENT GLYCEMIC CONTROL: Increase/tighten SQ basal bolus insulin regimen. Pt uses ~170units of insulin as an outpatient with presumed adequate control. Will stress outpatient dose for steroid induced hyperglycemia { estimated TDD ~ 200-220units/day}. * Basal insulin * Lantus 55 units SQ BID {outpatient dose is 45 units BID} * Bolus insulin * NovoLog per scale ACHS or Q6hrs while NPO, additional checks + coverage at 0000 & 0400 for sustained hyperglycemia * Goal Range: Low 120 mg/dL - High 140 mg/dL * Correction Factor: 7 mg/dL/unit * Nutritional / Prandial insulin per carb ratio of 1 unit per 3 grams CHO consumed * Please note that the plan above was derived based on current level of insulin resistance and hospital stress. These recommendations are appropriate for inpatient admission only. Plan of care upon discharge will need to be reassessed to avoid potential outpatient hypo/hyperglycemia. Thank you.
--- NOTE | 2016-09-04 10:48 | Pulmonology Progress Note ---
Pulmonary Progress Note Date of Service September 04, 2016. Attending Subjective sitting in chair no new complaints Objective appears comfortable vitals reviewed HEENT: normal Heart: s1,s2 Lungs: clear b/l abd: soft, distended ext: no edema DIETARY AID: AAO X4, no focal deficit all labs and imaging reviewed Assessment & Plan (1) Cirrhosis of liver Assessment & Plan: f/u with GI as outpatient recommend to d/richard prieto (2) Bilateral pleural effusion Assessment & Plan: b/l effusions due to cirrhosis ? chylous : usually not chylous in cirrhosis recommend GI f/u as outpatient for possible TIPS (3) Hypercapnia present on admission recommend set up home trilogy continue present neb rx might need repeat pfts' as outpatient Data Medications: Current Inpatient Medications Medications (Trade) Dose Ordered Sig/Virgil Route Start Time Stop Time Status Last Admin Dose Admin Levofloxacin (Consult) 1 ea UD PRN N/A 09/03/16 01:08 10/03/16 01:07 Aspirin (Ecotrin Tab) 81 mg MoWeFr@0900 PO 09/04/16 09:00 10/04/16 08:59 09/04/16 08:56 81 MG Atorvastatin Calcium (Lipitor Tab) 80 mg QPM PO 09/03/16 21:00 10/03/16 20:59 09/03/16 20:38 80 MG Docusate Sodium (coLACE CAP) 100 mg BID PO 09/03/16 09:00 10/03/16 08:59 09/04/16 08:56 100 MG Latanoprost (Xalatan Oph Soln) 1 drops HS OPB 09/03/16 21:00 10/03/16 20:59 09/03/16 20:37 1 DROPS Levothyroxine Sodium (Synthroid Tab) 112 mcg DAILYBB PO 09/03/16 06:00 10/03/16 05:59 09/04/16 05:05 112 MCG Metoprolol Succinate (Toprol Xl Tab) 25 mg BID PO 09/03/16 09:00 10/03/16 08:59 09/04/16 08:56 25 MG Pantoprazole Sodium (Protonix Tab) 40 mg BID PO 09/03/16 09:00 10/03/16 08:59 09/04/16 08:55 40 MG Rifaximin (Xifaxan Tab) 550 mg BID PO 09/03/16 09:00 10/03/16 08:59 09/04/16 08:55 550 MG Spironolactone (Aldactone Tab) 100 mg QAM PO 09/03/16 09:00 10/03/16 08:59 09/04/16 08:55 100 MG Triamcinolone Acetonide (Kenalog 0.1% Cream) 1 appln DAILY EXT 09/03/16 09:00 10/03/16 08:59 09/04/16 08:54 1 APPLN Venlafaxine HCl (effeXOR TAB) 100 mg DAILY PO 09/03/16 09:00 10/03/16 08:59 09/04/16 08:56 100 MG Polyethylene (Miralax Powder Packet) 17 gm DAILY PO 09/03/16 09:00 10/03/16 08:59 09/04/16 08:57 17 GM Acetaminophen (Tylenol Tab) 650 mg Q4H PRN PO 09/02/16 23:45 10/02/16 23:44 Glucose (Glucose 40% Gel) 15-30 GRAMS 15 GRAMS... UD PRN PO 09/03/16 00:00 10/03/16 00:00 Glucose (Glucose Chew Tab) 4-8 Tablets 4 Tabl... UD PRN PO 09/03/16 00:00 10/03/16 00:00 Dextrose (Dextrose 50% 50ML Syringe) 25-50ML OF 50% DW IV FOR... UD PRN IV 09/03/16 00:00 10/03/16 00:00 Glucagon (Glucagon Inj) 1 mg UD PRN SQ 09/03/16 00:00 10/03/16 00:00 Miscellaneous Information (Consult Glycemic Management Pharmacy) 1 ea UD PRN N/A 09/03/16 01:30 10/03/16 01:29 Piperacillin Sod/ Tazobactam Sod 1 ea 1 ea UD PRN N/A 09/03/16 01:08 10/03/16 01:07 Piperacillin Sod/ Tazobactam Sod 3.375 gm/Dextrose 115 ml @ 28.75 mls/ hr Q8H IV 09/03/16 08:00 09/10/16 07:59 09/04/16 08:53 28.75 MLS/HR Levofloxacin/Prmx (Levaquin / D5W/ Premixed D5W) 150 ml @ 100 mls/hr Q48H IV 09/03/16 04:00 09/10/16 03:59 09/03/16 04:18 100 MLS/HR Ipratropium [place] (Atrovent 0.02% 0.5MG/2.5ML Neb) 0.5 mg Q4R INH 09/03/16 04:00 10/03/16 03:59 09/04/16 08:24 0.5 MG Levalbuterol (Xopenex 1.25MG/ 0.5ML Neb) 1.25 mg Q4R INH 09/03/16 04:00 10/03/16 03:59 09/04/16 08:24 1.25 MG Lactulose (Chronulac Syrup) 30 gm TID PO 09/03/16 09:00 10/03/16 08:59 09/03/16 09:45 30 GM Furosemide 40 mg 40 mg DAILYBD PO 09/03/16 16:15 10/03/16 16:14 09/03/16 16:09 40 MG Methylprednisolone Sodium Succinate/ Syringe (Solu-Medrol IV/ Syringe) 0.64 ml @ 1.5 mls/min Q8H IV 09/03/16 14:00 10/03/16 12:44 09/04/16 05:04 1.5 MLS/MIN Budesonide/ Formoterol Fumarate (Symbicort 80/ 4.5 Inh) 2 puffs BID INH 09/03/16 21:00 10/03/16 20:59 09/04/16 08:54 2 PUFFS Furosemide (Lasix Tab) 60 mg QAM PO 09/04/16 09:00 10/04/16 08:59 09/04/16 08:58 60 MG Insulin Aspart (novoLOG ASPART) SLIDING SCALE If C... ACHS SC 09/03/16 16:15 10/03/16 16:14 09/04/16 09:03 30 UNITS Insulin Glargine (Lantus Solostar Pen) 55 unit BID SC 09/04/16 09:00 10/04/16 08:59 09/04/16 09:04 55 UNIT Insulin Aspart (novoLOG ASPART) SLIDING SCALE If C... 0000,0400 SC 09/05/16 00:00 09/05/16 04:01 I & O: 24-Hour Column 09/04/16 08:00 Intake Total 964 ml Output Total 1500 ml Balance -536 ml Vital Signs: Date Time Temp Pulse Resp B/P Pulse Ox O2 Delivery O2 Flow Rate FiO2 09/04/16 08:24 95 16 97 Nasal Cannula 3.0 09/04/16 08:00 36.5 94 18 123/61 97 Room Air 09/04/16 04:25 36.7 103 18 148/66 97 3.0 09/04/16 04:00 Nasal Cannula 3.0 09/04/16 00:14 36.7 101 18 133/62 94 3.0 09/03/16 23:59 Nasal Cannula 3.0 09/03/16 20:00 Nasal Cannula 3.0 09/03/16 19:39 86 18 98 Nasal Cannula 3.0 09/03/16 19:38 36.4 105 22 118/45 98 Nasal Cannula 3.0 09/03/16 16:03 Nasal Cannula 3.0 09/03/16 15:30 37.0 100 22 129/67 96 Nasal Cannula 3.0 09/03/16 15:17 102 18 98 Nasal Cannula 3.0 09/03/16 12:02 Nasal Cannula 3.0 09/03/16 11:25 36.6 101 24 134/68 96 Nasal Cannula 2.0 09/03/16 11:12 97 18 97 Nasal Cannula 3.0 Laboratory Results: Last 24 Hours Test 09/03/16 11:20 09/03/16 11:40 09/03/16 16:18 09/03/16 20:06 Bedside Glucose 161 mg/dl 207 mg/dl 311 mg/dl Arterial Blood pH 7.40 Arterial Blood Partial Pressure CO2 60 mmHg Arterial Blood Partial Pressure O2 78 mm/Hg Arterial Blood HCO3 36 mmol/L Arterial Blood Oxygen Saturation 92.6 % Arterial Blood Base Excess 10.3 mEq/L Arterial Blood Gas Delivery 3 Akin Test POS Test 09/04/16 01:08 09/04/16 04:09 09/04/16 05:38 09/04/16 06:23 Bedside Glucose 301 mg/dl 317 mg/dl 250 mg/dl White Blood Count 9.97 K/uL Red Blood Count 3.24 M/uL Hemoglobin 8.0 g/dL Hematocrit 26.6 % Mean Corpuscular Volume 82.1 fL Mean Corpuscular Hemoglobin 24.7 pg Mean Corpuscular Hemoglobin Concent 30.1 g/dl Platelet Count 326 K/uL Mean Platelet Volume 9.1 fL Neutrophils (%) (Auto) 92.9 % Lymphocytes (%) (Auto) 4.8 % Monocytes (%) (Auto) 2.1 % Eosinophils (%) (Auto) 0.0 % Basophils (%) (Auto) 0.0 % Neutrophils # (Auto) 9.26 K/uL Lymphocytes # (Auto) 0.48 K/uL Monocytes # (Auto) 0.21 K/uL Eosinophils # (Auto) 0.00 K/uL Basophils # (Auto) 0.00 K/uL RDW Standard Deviation 55.4 fL RDW Coefficient of Variation 18.3 % Immature Granulocyte % (Auto) 0.2 % Immature Granulocyte # (Auto) 0.02 K/uL Red Blood Cell Morphology Unremarkable Sodium Level 139 mmol/L Potassium Level 4.4 mmol/L Chloride Level 98 mmol/L Carbon Dioxide Level 36 mmol/L Anion Gap 5.0 mmol/L Blood Urea Nitrogen 44 mg/dl Creatinine 1.70 mg/dl Est Creatinine Clear Calc Drug Dose 33.9 ml/min Estimated GFR () 34.1 Estimated GFR (Non- 29.4 BUN/Creatinine Ratio 25.9 Random Glucose 268 mg/dl Calcium Level 9.2 mg/dl Ammonia 20.0 umol/L
[2016-09-04] MEDS ORDERED: METOPROLOL TARTRATE 1 MG/ML VIAL IV PRN (14:45)
--- NOTE | 2016-09-04 18:19 | Progress Note ---
Internal Med Progress Note Date of Service: September 04, 2016. Provider Documentation: SUBJECTIVE: sitting on the chair comfortably sob improved mental status at baseline ambulated afebrile no cough OBJECTIVE: Vital Signs-as noted below Exam: General-alert and awake and oriented x 3. ENT-Normal hearing Neck-no neck masses Lungs-cta b/l no wheezing no crackles Heart-s1 and s2 heard regular rate and rhythm no murmurs Abdomen-soft bowel sounds present non tender no distension Extremities- no edema present chronic skin changes in lower extremity Neuro-alert and awake oriented moves extremities Lab data as noted below. ASSESSMENT & PLAN: 75 year old female with history of Chronic respiratory failure secondary to COPD ,Cirrhosis secondary to GRAHAM, Atrial Fibrillation off Coumadin, DM, CKD, Anemia , presenting with lethargy and shortness of breath.Ross was recently in hospital for anemia and sob.Ross has b/l pleural effusion was tapped once before in May and had chylous in fluid and was advised to avoid tapping. received albumin and Lasix and prbc transfusion and was discharged home to f/u with pcp and GI. But came back with sob and lethargy.Co2 high on abg. Seen by Pulmonary and placed on steroids, Symbicort, adjusted Lasix and advised bipap or trilogy q hs.Also on empiric abx for possible pneumonia on cxr. currently patient back to baseline. Needs p/ot evaluation. May need placement and arrangements for home trilogy or bipap. SHORTNESS OF BREATH, LETHARGY Acute on CHRONIC RESPIRATORY FAILURE Most likely from: BILATERAL PLEURAL EFFUSION copd and co2 retention on ABG possible pneumonia sleep apnea? received iv lasix in er changed lasix 60mg in pm and lasix 40mg in am on Levaquin and zosyn #2 iv steroids Pulmonary recommends bipap q hs improving plan for trilogy at discharge will taper steroids and change abx to po Levaquin soon COPD on abx and steroids nebs CIRRHOSIS continue PO diuretics, Rifaximin ammonia 57 received a dose of lactulose and refuses to take more. on lasix 40mg in am and 60mg po in pm and Aldactone 100mg daily ATRIAL FIBRILLATION HISTORY on Toprol xl iv Lopressor prn will monitor DM 2 on Lantus and iss monitor while on iv steroids Pharm consult and appreciate inputs CKD stage 3 cr 1.7 today f/u labs ANEMIA stable since 09/01 will monitor DVT prophylaxis anticoag contraindicated due to gi bleed history SCDs Full Code Dispo monitor in tele pt/ot may need SNF social service for d/c planning Vital Signs: Date Time Temp Pulse Resp B/P Pulse Ox O2 Delivery O2 Flow Rate FiO2 09/04/16 19:44 36.4 101 19 116/46 97 Nasal Cannula 3.0 09/04/16 19:37 116 16 97 Nasal Cannula 3.0 09/04/16 16:08 36.6 108 18 115/55 95 Nasal Cannula 3.0 09/04/16 16:02 Nasal Cannula 3.0 09/04/16 15:07 102 16 96 Nasal Cannula 3.0 09/04/16 12:00 Room Air 3.0 09/04/16 12:00 36.9 102 18 123/55 96 Nasal Cannula 2.0 09/04/16 11:19 96 16 97 Nasal Cannula 3.0 09/04/16 08:24 95 16 97 Nasal Cannula 3.0 09/04/16 08:00 36.5 94 18 123/61 97 Room Air 09/04/16 08:00 97 Room Air 3.0 09/04/16 04:25 36.7 103 18 148/66 97 3.0 09/04/16 04:00 Nasal Cannula 3.0 09/04/16 00:14 36.7 101 18 133/62 94 3.0 09/03/16 23:59 Nasal Cannula 3.0 Lab Results: Results Past 24 Hours Test 09/04/16 01:08 09/04/16 04:09 09/04/16 05:38 09/04/16 06:23 Range/Units Bedside Glucose 301 317 250 70-90 mg/dl White Blood Count 9.97 4.8-10.8 K/uL Red Blood Count 3.24 4.2-5.4 M/uL Hemoglobin 8.0 12.0-16.0 g/dL Hematocrit 26.6 37-47 % Mean Corpuscular Volume 82.1 80-100 fL Mean Corpuscular Hemoglobin 24.7 25-34 pg Mean Corpuscular Hemoglobin Concent 30.1 32-36 g/dl Platelet Count 326 130-400 K/uL Mean Platelet Volume 9.1 7.4-10.4 fL Neutrophils (%) (Auto) 92.9 % Lymphocytes (%) (Auto) 4.8 % Monocytes (%) (Auto) 2.1 % Eosinophils (%) (Auto) 0.0 % Basophils (%) (Auto) 0.0 % Neutrophils # (Auto) 9.26 1.4-6.5 K/uL Lymphocytes # (Auto) 0.48 1.2-3.4 K/uL Monocytes # (Auto) 0.21 0.11-0.59 K/uL Eosinophils # (Auto) 0.00 0-0.5 K/uL Basophils # (Auto) 0.00 0-0.2 K/uL RDW Standard Deviation 55.4 36.4-46.3 fL RDW Coefficient of Variation 18.3 11.5-14.5 % Immature Granulocyte % (Auto) 0.2 % Immature Granulocyte # (Auto) 0.02 0.00-0.02 K/uL Red Blood Cell Morphology Unremarkable Sodium Level 139 136-145 mmol/L Potassium Level 4.4 3.5-5.1 mmol/L Chloride Level 98 98-107 mmol/L Carbon Dioxide Level 36 21-32 mmol/L Anion Gap 5.0 3-11 mmol/L Blood Urea Nitrogen 44 7-18 mg/dl Creatinine 1.70 0.60-1.20 mg/dl Est Creatinine Clear Calc Drug Dose 33.9 ml/min Estimated GFR () 34.1 Estimated GFR (Non- 29.4 BUN/Creatinine Ratio 25.9 10-20 Random Glucose 268 70-99 mg/dl Calcium Level 9.2 8.5-10.1 mg/dl Ammonia 20.0 11-32 umol/L Test 09/04/16 11:29 09/04/16 16:18 09/04/16 20:32 Range/Units Bedside Glucose 228 269 277 70-90 mg/dl
[2016-09-04] MEDS: LATANOPROST 0.005% OP SOLN 2.5 ML BTL OPB SCH (20:01)
[2016-09-04] MEDS: ATORVASTATIN 40 MG TAB PO SCH (20:02)
[2016-09-05] VITALS (15 sets, daily range): BP systolic 113–139; BP diastolic 57–69; PULSE 101–114; TEMP 36.4–37.1; O2SAT 94–99
[2016-09-05] MEDS: PIPERACILL/TAZOBAC IV 3.375 GM in DEXTROSE 5% 100ML IV SCH ×2 (00:20→08:00)
[2016-09-05] MEDS: INSULIN ASPART 100 UNITS/ML 3 ML PEN SC SCH ×6 (00:20→20:56)
[2016-09-05] MEDS: IPRATROPIUM BROMIDE NEB SOLN 0.02% 2.5 ML VIAL INH SCH ×6 (04:00→23:32)
[2016-09-05] MEDS: LEVALBUTEROL 1.25MG/0.5ML NEB INH SCH ×6 (04:00→23:32)
[2016-09-05] MEDS: LEVOFLOXACIN 750MG / D5W IV SCH (04:21)
[2016-09-05] MEDS: LEVOTHYROXINE 112 MCG TAB PO SCH (06:13)
[2016-09-05 07:52] LABS: HEMATOCRIT 26.3 % (37-47); IG% 0.2 %; LYMPH % 2.4 %; LYMPH ABS # 0.44 K/uL (1.2-3.4); MEAN CELL VOLUME 81.4 fL (80-100); MEAN CORPUSCULAR HEMOGLOBIN 24.5 pg (25-34); MEAN PLATELET VOLUME 9.3 fL (7.4-10.4); MONO % 6.7 %; NEUT % 90.7 %; PLATELET COUNT 361 K/uL (130-400); RED BLOOD COUNT 3.23 M/uL (4.2-5.4); WHITE BLOOD COUNT 18.03 K/uL (4.8-10.8)
[2016-09-05 08:18] LABS: BUN/CREATININE RATIO 29.5 (10-20); CREATININE 1.9 mg/dl (0.60-1.20); POTASSIUM 4.3 mmol/L (3.5-5.1)
[2016-09-05] MEDS: VENLAFAXINE HCL 50 MG TAB PO SCH (08:32)
[2016-09-05] MEDS: PANTOprazole SOD 40 MG TAB PO SCH ×2 (08:33→20:58)
[2016-09-05] MEDS: BUDESONIDE/FORMOTEROL FUMARATE 80/4.5 60 PUFFS/INHALER INH SCH ×2 (08:34→20:54)
[2016-09-05] MEDS: FUROSEMIDE 40 MG TAB PO SCH ×2 (08:34→17:18)
[2016-09-05] MEDS: DOCUSATE SODIUM 100 MG CAP PO SCH ×2 (08:34→20:52)
[2016-09-05] MEDS: SPIRONOLACTONE 100 MG TAB PO SCH (08:34)
[2016-09-05] MEDS: POLYETHYLENE (MIRALAX) 17 GM PACK PO SCH (08:35)
[2016-09-05] MEDS: METOPROLOL SUCC 25MG EXT REL TAB PO SCH ×2 (08:35→20:53)
[2016-09-05] MEDS: RIFAXIMIN TAB 550 MG TAB PO SCH ×2 (08:35→20:53)
[2016-09-05 08:36] LABS: ANISOCYTOSIS PRESENT; COMPLETE YES; HYPOCHROMIA PRESENT; MICROCYTOSIS PRESENT
[2016-09-05] MEDS: LACTULOSE SYRUP 30 GM/45 ML UDP PO SCH ×3 (08:36→20:58)
[2016-09-05] MEDS: INSULIN GLARGINE SOLOSTAR 100 UNITS/ML 3 ML PEN SC SCH (08:38)
[2016-09-05 08:42] LABS: CALCIUM 9.4 mg/dl (8.5-10.1)
[2016-09-05] MEDS: TRIAMCINOLONE ACET 0.1% CR 15 GM TUBE EXT SCH (08:47)
--- NOTE | 2016-09-05 11:40 | Pulmonology Progress Note ---
Pulmonary Progress Note Date of Service September 05, 2016. 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 chylous : usually not chylous in cirrhosis recommend GI f/u as outpatient for possible TIPS all cultures negative d/c abx (3) Hypercapnia says she will not use bipap/trilogy at home. Would not order trilogy if patient admits that she will not compliant continue present neb rx might need repeat pfts' as outpatient Data Medications: Current Inpatient Medications Medications (Trade) Dose Ordered Sig/Virgil Route Start Time Stop Time Status Last Admin Dose Admin Levofloxacin (Consult) 1 ea UD PRN N/A 09/03/16 01:08 10/03/16 01:07 Aspirin (Ecotrin Tab) 81 mg MoWeFr@0900 PO 09/04/16 09:00 10/04/16 08:59 09/04/16 08:56 81 MG Atorvastatin Calcium (Lipitor Tab) 80 mg QPM PO 09/03/16 21:00 10/03/16 20:59 09/04/16 20:02 80 MG Docusate Sodium (coLACE CAP) 100 mg BID PO 09/03/16 09:00 10/03/16 08:59 09/05/16 08:34 100 MG Latanoprost (Xalatan Oph Soln) 1 drops HS OPB 09/03/16 21:00 10/03/16 20:59 09/04/16 20:01 1 DROPS Levothyroxine Sodium (Synthroid Tab) 112 mcg DAILYBB PO 09/03/16 06:00 10/03/16 05:59 09/05/16 06:13 112 MCG Metoprolol Succinate (Toprol Xl Tab) 25 mg BID PO 09/03/16 09:00 10/03/16 08:59 09/05/16 08:35 25 MG Pantoprazole Sodium (Protonix Tab) 40 mg BID PO 09/03/16 09:00 10/03/16 08:59 09/05/16 08:33 40 MG Rifaximin (Xifaxan Tab) 550 mg BID PO 09/03/16 09:00 10/03/16 08:59 09/05/16 08:35 550 MG Spironolactone (Aldactone Tab) 100 mg QAM PO 09/03/16 09:00 10/03/16 08:59 09/05/16 08:34 100 MG Triamcinolone Acetonide (Kenalog 0.1% Cream) 1 appln DAILY EXT 09/03/16 09:00 10/03/16 08:59 09/05/16 08:47 1 APPLN Venlafaxine HCl (effeXOR TAB) 100 mg DAILY PO 09/03/16 09:00 10/03/16 08:59 09/05/16 08:32 100 MG Polyethylene (Miralax Powder Packet) 17 gm DAILY PO 09/03/16 09:00 10/03/16 08:59 09/05/16 08:35 17 GM Acetaminophen (Tylenol Tab) 650 mg Q4H PRN PO 09/02/16 23:45 10/02/16 23:44 Glucose (Glucose 40% Gel) 15-30 GRAMS 15 GRAMS... UD PRN PO 09/03/16 00:00 10/03/16 00:00 Glucose (Glucose Chew Tab) 4-8 Tablets 4 Tabl... UD PRN PO 09/03/16 00:00 10/03/16 00:00 Dextrose (Dextrose 50% 50ML Syringe) 25-50ML OF 50% DW IV FOR... UD PRN IV 09/03/16 00:00 10/03/16 00:00 Glucagon (Glucagon Inj) 1 mg UD PRN SQ 09/03/16 00:00 10/03/16 00:00 Miscellaneous Information 1 ea 1 ea UD PRN N/A 09/03/16 01:30 10/03/16 01:29 Levofloxacin/Prmx (Levaquin / D5W/ Premixed D5W) 150 ml @ 100 mls/hr Q48H IV 09/03/16 04:00 09/10/16 03:59 09/05/16 04:21 100 MLS/HR Ipratropium [place] (Atrovent 0.02% 0.5MG/2.5ML Neb) 0.5 mg Q4R INH 09/03/16 04:00 10/03/16 03:59 09/05/16 11:17 0.5 MG Levalbuterol (Xopenex 1.25MG/ 0.5ML Neb) 1.25 mg Q4R INH 09/03/16 04:00 10/03/16 03:59 09/05/16 11:17 1.25 MG Lactulose (Chronulac Syrup) 30 gm TID PO 09/03/16 09:00 10/03/16 08:59 09/03/16 09:45 30 GM Furosemide (Lasix Tab) 40 mg DAILYBD PO 09/03/16 16:15 10/03/16 16:14 09/04/16 16:05 40 MG Budesonide/ Formoterol Fumarate (Symbicort 80/ 4.5 Inh) 2 puffs BID INH 09/03/16 21:00 10/03/16 20:59 09/05/16 08:34 2 PUFFS Furosemide (Lasix Tab) 60 mg QAM PO 09/04/16 09:00 10/04/16 08:59 09/05/16 08:34 60 MG Insulin Aspart (novoLOG ASPART) SLIDING SCALE If C... ACHS SC 09/03/16 16:15 10/03/16 16:14 09/05/16 08:38 25 UNITS Insulin Glargine (Lantus Solostar Pen) 55 unit BID SC 09/04/16 09:00 10/04/16 08:59 09/05/16 08:38 55 UNIT Metoprolol Tartrate (Lopressor Iv) 2.5 mg Q6 PRN IV 09/04/16 14:45 10/04/16 14:44 Prednisone (PredniSONE TAB) 40 mg DAILY PO 09/05/16 09:00 09/05/16 23:59 09/05/16 08:35 40 MG Prednisone (PredniSONE TAB) 20 mg DAILY PO 09/06/16 09:00 10/06/16 08:59 I & O: 24-Hour Column 09/05/16 08:00 Intake Total 1056 ml Output Total 850 ml Balance 206 ml Vital Signs: Date Time Temp Pulse Resp B/P Pulse Ox O2 Delivery O2 Flow Rate FiO2 09/05/16 11:17 108 18 97 Nasal Cannula 3.0 09/05/16 08:13 37.0 111 20 113/61 97 Nasal Cannula 3.0 09/05/16 08:00 98 Nasal Cannula 3.0 09/05/16 07:24 102 20 98 Nasal Cannula 3.0 09/05/16 04:00 Nasal Cannula 3.0 09/05/16 03:48 37.0 114 20 131/57 94 Nasal Cannula 3.0 09/05/16 00:00 Nasal Cannula 3.0 09/04/16 23:47 36.6 133 22 131/52 95 Nasal Cannula 3.0 09/04/16 23:44 105 20 96 Nasal Cannula 3.0 09/04/16 21:44 103 96 3.0 09/04/16 20:01 Nasal Cannula 3.0 09/04/16 19:44 36.4 101 19 116/46 97 Nasal Cannula 3.0 09/04/16 19:37 116 16 97 Nasal Cannula 3.0 09/04/16 16:08 36.6 108 18 115/55 95 Nasal Cannula 3.0 09/04/16 16:02 Nasal Cannula 3.0 09/04/16 15:07 102 16 96 Nasal Cannula 3.0 09/04/16 12:00 Room Air 3.0 09/04/16 12:00 36.9 102 18 123/55 96 Nasal Cannula 2.0 Laboratory Results: Last 24 Hours Test 09/04/16 16:18 09/04/16 20:32 09/05/16 00:07 09/05/16 03:49 Bedside Glucose 269 mg/dl 277 mg/dl 227 mg/dl 216 mg/dl Test 09/05/16 06:51 09/05/16 07:40 09/05/16 11:08 Bedside Glucose 206 mg/dl 257 mg/dl White Blood Count 18.03 K/uL Red Blood Count 3.23 M/uL Hemoglobin 7.9 g/dL Hematocrit 26.3 % Mean Corpuscular Volume 81.4 fL Mean Corpuscular Hemoglobin 24.5 pg Mean Corpuscular Hemoglobin Concent 30.0 g/dl Platelet Count 361 K/uL Mean Platelet Volume 9.3 fL Neutrophils (%) (Auto) 90.7 % Lymphocytes (%) (Auto) 2.4 % Monocytes (%) (Auto) 6.7 % Eosinophils (%) (Auto) 0.0 % Basophils (%) (Auto) 0.0 % Neutrophils # (Auto) 16.35 K/uL Lymphocytes # (Auto) 0.44 K/uL Monocytes # (Auto) 1.20 K/uL Eosinophils # (Auto) 0.00 K/uL Basophils # (Auto) 0.00 K/uL RDW Standard Deviation 56.2 fL RDW Coefficient of Variation 18.7 % Immature Granulocyte % (Auto) 0.2 % Immature Granulocyte # (Auto) 0.04 K/uL Hypochromasia PRESENT Anisocytosis PRESENT Microcytosis PRESENT Sodium Level 137 mmol/L Potassium Level 4.3 mmol/L Chloride Level 96 mmol/L Carbon Dioxide Level 33 mmol/L Anion Gap 8.0 mmol/L Blood Urea Nitrogen 56 mg/dl Creatinine 1.90 mg/dl Est Creatinine Clear Calc Drug Dose 30.4 ml/min Estimated GFR () 29.8 Estimated GFR (Non- 25.7 BUN/Creatinine Ratio 29.5 Random Glucose 200 mg/dl Calcium Level 9.4 mg/dl Ammonia 28.0 umol/L
--- NOTE | 2016-09-05 15:20 | Pharmacy Progress Note ---
Glycemic Control: Progress Nt Date of Service September 05, 2016. Scope Glycemic Pharmacist consulted by Dr Butler on 09/03/16 for glycemic control and to write orders per [facility] inpatient glycemic control protocol. Objective Accuchecks BSG (last 24hrs): Test 09/04/16 16:18 09/04/16 20:32 09/05/16 00:07 09/05/16 03:49 Bedside Glucose 269 mg/dl (70-90) 277 mg/dl (70-90) 227 mg/dl (70-90) 216 mg/dl (70-90) Test 09/05/16 06:51 09/05/16 07:40 09/05/16 11:08 Bedside Glucose 206 mg/dl (70-90) 257 mg/dl (70-90) Random Glucose 200 mg/dl (70-99) Laboratory Data (last 24hrs) Test 09/05/16 07:40 Anion Gap 8.0 mmol/L BUN/Creatinine Ratio 29.5 Blood Urea Nitrogen 56 mg/dl Creatinine 1.90 mg/dl Potassium Level 4.3 mmol/L Sodium Level 137 mmol/L White Blood Count 18.03 K/uL Red Blood Count 3.23 M/uL Hemoglobin 7.9 g/dL Hematocrit 26.3 % Mean Corpuscular Volume 81.4 fL Mean Corpuscular Hemoglobin 24.5 pg Mean Corpuscular Hemoglobin Concent 30.0 g/dl Platelet Count 361 K/uL Mean Platelet Volume 9.3 fL Neutrophils (%) (Auto) 90.7 % Lymphocytes (%) (Auto) 2.4 % Monocytes (%) (Auto) 6.7 % Eosinophils (%) (Auto) 0.0 % Basophils (%) (Auto) 0.0 % Neutrophils # (Auto) 16.35 K/uL Lymphocytes # (Auto) 0.44 K/uL Monocytes # (Auto) 1.20 K/uL Eosinophils # (Auto) 0.00 K/uL Basophils # (Auto) 0.00 K/uL Recent Pertinent Medications Recent Pertinent Medications Outpatient Anti-diabetic Regimen: * Lantus 45 units SQ BID * NovoLog - The patient is currently receiving: * Basal insulin: Lantus 55 units every 12 hours * Correctional Insulin: Novolog Correction per scale ACHS Goal Range: Low 120 mg/dL - High 140 mg/dL Correction Factor: 7 mg/dL/unit * Prandial insulin: Per carb ratio of 1 unit per 3 grams CHO consumed Risk Factors for Insulin Resistance: * Steroids: Solumedrol 40 mg IV q8h has been decreased to prednisone 40 mg daily today, then 20 mg daily tomorrow * Infection - pneumonia Assessment & Plan ASSESSMENT: 09/04/16: * Pt received 87 units of insulin on 09/03 with poor glycemic control * 55 units basal {as Lantus 10 units AM + Lantus 45units PM} * 32 units of prandial/correctional insulin * Many changes yesterday (09/03) which have deteriorated glycemic control. * Pt NPO --> Diet. Was given reduced basal insulin dose in AM for NPO as pt typically requires about half of outpatient dosing while admitted. Was given normal outpatient Lantus dose in the evening after tolerating PO. * Started on Solumedrol 40mg IV Q8hrs --> steroid induced hyperglycemia. BSGs 207, 311, 301, 317, 250 since starting solumedrol. 09/05/16 * Patient rec'd 233 units of insulin yesterday w/ BSGs ranging from 200-277 in the past 24 hours * BSGs remain somewhat elevated, however, she has had a drastic reduction in her steroid dose from yesterday to today * I am concerned that continuing the current insulin regimen will result in hypoglycemia * Based on previous records when she was on prednisone 40 mg daily, she required the following with good BSG control: * Lantus 45 units BID * CF 10 * CR 3 * Will plan to change current regimen to above and may need to further adjust tomorrow based upon BSGs PLAN FOR INPATIENT GLYCEMIC CONTROL: * Decrease Lantus to 45 units SQ BID * Change correction factor to 10 mg/dl/unit * Continue carb ratio of 1 unit per 3 grams CHO consumed * Continue goal range of Low 120 mg/dL - High 140 mg/dL * Please note that the plan above was derived based on current level of insulin resistance and hospital stress. These recommendations are appropriate for inpatient admission only. Plan of care upon discharge will need to be reassessed to avoid potential outpatient hypo/hyperglycemia. Thank you.
[2016-09-05] MEDS: ATORVASTATIN 40 MG TAB PO SCH (20:52)
[2016-09-05] MEDS: LATANOPROST 0.005% OP SOLN 2.5 ML BTL OPB SCH (20:54)
[2016-09-05] MEDS ORDERED: INSULIN GLARGINE SOLOSTAR 100 UNITS/ML 3 ML PEN SC SCH (21:00)
--- NOTE | 2016-09-05 21:55 | Progress Note ---
Medicine Progress Note Date & Time of Visit: September 05, 2016 at 14:50 . Subjective No fever. Persistent dyspnea, especially when lying supine or ambulating. Occasional nonproductive cough. No chest pain. No nausea or vomiting. No diarrhea. Voiding without difficulty. . Objective Last 8 Hrs Date Time Temp Pulse Resp B/P Pulse Ox O2 Delivery O2 Flow Rate FiO2 09/05/16 19:42 106 18 98 Nasal Cannula 3.0 09/05/16 19:26 37.1 103 20 139/69 97 Nasal Cannula 3.0 09/05/16 16:00 95 Nasal Cannula 3.0 09/05/16 15:47 36.8 110 20 133/66 99 Room Air 3.0 09/05/16 14:25 103 18 97 Nasal Cannula 3.0 09/05/16 13:48 37.1 107 22 139/63 98 4.0 Physical Exam: General- sitting in chair, no distress Eyes- anicteric Neck- + JVD Lungs- diffuse wheezing Heart- regular, no gallop Abdomen- normal bowel sounds, soft, nontender Extremities- 1-2+ pretibial edema; no calf tenderness Neuro- alert, oriented; resting tremor versus asterixis . Laboratory Results: Last 24 Hours Test 09/05/16 00:07 09/05/16 03:49 09/05/16 06:51 09/05/16 07:40 Bedside Glucose 227 mg/dl 216 mg/dl 206 mg/dl White Blood Count 18.03 K/uL Red Blood Count 3.23 M/uL Hemoglobin 7.9 g/dL Hematocrit 26.3 % Mean Corpuscular Volume 81.4 fL Mean Corpuscular Hemoglobin 24.5 pg Mean Corpuscular Hemoglobin Concent 30.0 g/dl Platelet Count 361 K/uL Mean Platelet Volume 9.3 fL Neutrophils (%) (Auto) 90.7 % Lymphocytes (%) (Auto) 2.4 % Monocytes (%) (Auto) 6.7 % Eosinophils (%) (Auto) 0.0 % Basophils (%) (Auto) 0.0 % Neutrophils # (Auto) 16.35 K/uL Lymphocytes # (Auto) 0.44 K/uL Monocytes # (Auto) 1.20 K/uL Eosinophils # (Auto) 0.00 K/uL Basophils # (Auto) 0.00 K/uL RDW Standard Deviation 56.2 fL RDW Coefficient of Variation 18.7 % Immature Granulocyte % (Auto) 0.2 % Immature Granulocyte # (Auto) 0.04 K/uL Hypochromasia PRESENT Anisocytosis PRESENT Microcytosis PRESENT Sodium Level 137 mmol/L Potassium Level 4.3 mmol/L Chloride Level 96 mmol/L Carbon Dioxide Level 33 mmol/L Anion Gap 8.0 mmol/L Blood Urea Nitrogen 56 mg/dl Creatinine 1.90 mg/dl Est Creatinine Clear Calc Drug Dose 30.4 ml/min Estimated GFR () 29.8 Estimated GFR (Non- 25.7 BUN/Creatinine Ratio 29.5 Random Glucose 200 mg/dl Calcium Level 9.4 mg/dl Ammonia 28.0 umol/L Test 09/05/16 11:08 09/05/16 16:57 09/05/16 20:13 Bedside Glucose 257 mg/dl 282 mg/dl 270 mg/dl Assessment & Plan ACUTE ON CHRONIC HYPOXIC + HYPERCAPNIC RESPIRATORY FAILURE Presented with increasing shortness of breath. Underlying COPD, pleural effusions, sleep apnea, pulmonary edema as discussed separately below. Pulmonary Medicine consulted. BiPAP or Trilogy at home recommended- patient declines. Titrate supplemental O2. COPD Continue supplemental oxygen, bronchodilators, steroids. PLEURAL EFFUSIONS Recent thoracentesis demonstrated chylous pleural effusions. Underlying pulmonary edema. Pulmonary Medicine consulted. No need for repeat thoracentesis at this time. SUSPECTED SLEEP APNEA BiPAP or Trilogy at home recommended- patient declines. PULMONARY EDEMA Chest x-ray demonstrated cardiomegaly with pulmonary edema. Echocardiogram 05/30/16 demonstrated LVEF of 70%, mild concentric LVH. May have acute on chronic left ventricular diastolic heart failure. Titrate diuretics. ALTERED MENTAL STATUS Presented with altered mental status. Head CT did not show any acute findings. Probable metabolic encephalopathy secondary to underlying pulmonary issues. Serum ammonia elevated; probably also had a component of hepatic encephalopathy. Improved. CIRRHOSIS OF LIVER Due to nonalcoholic fatty liver disease. Continue diuretics and rifaximin. Further management per GI. CKD STAGE III Serum creatinine on admission 1.3. Creatinine today = 1.9. Follow. DIABETES MELLITUS TYPE 2 Fairly well controlled at home. Recent hemoglobin A1c 6.8 on 07/15/16. Pharmacy consulted to assist with glycemic management. ANEMIA Hemoglobin at time of last admission on 08/25/16 was 5.7. History of portal hypertension secondary to cirrhosis. History of cecal AVMs. Recent EGD on 07/17/16 demonstrated esophageal varices. Recent colonoscopy unremarkable. Received 3 units of packed RBCs during recent hospital stay. Hemoglobin today = 7.9. Follow. VTE PROPHYLAXIS No anticoagulants because of apparent chronic GI blood loss. SCD's. Ambulate. DISPOSITION To be determined. Family Medicine follow-up with Dr. Yann Gutierrez. . Current Inpatient Medications: Current Inpatient Medications Medications (Trade) Dose Ordered Sig/Virgil Route Start Time Stop Time Status Last Admin Dose Admin Aspirin (Ecotrin Tab) 81 mg MoWeFr@0900 PO 09/04/16 09:00 10/04/16 08:59 09/04/16 08:56 81 MG Atorvastatin Calcium (Lipitor Tab) 80 mg QPM PO 09/03/16 21:00 10/03/16 20:59 09/05/16 20:52 80 MG Docusate Sodium (coLACE CAP) 100 mg BID PO 09/03/16 09:00 10/03/16 08:59 09/05/16 20:52 100 MG Latanoprost (Xalatan Oph Soln) 1 drops HS OPB 09/03/16 21:00 10/03/16 20:59 09/05/16 20:54 1 DROPS Levothyroxine Sodium (Synthroid Tab) 112 mcg DAILYBB PO 09/03/16 06:00 10/03/16 05:59 09/05/16 06:13 112 MCG Metoprolol Succinate (Toprol Xl Tab) 25 mg BID PO 09/03/16 09:00 10/03/16 08:59 09/05/16 20:53 25 MG Pantoprazole Sodium (Protonix Tab) 40 mg BID PO 09/03/16 09:00 10/03/16 08:59 09/05/16 20:58 40 MG Rifaximin (Xifaxan Tab) 550 mg BID PO 09/03/16 09:00 10/03/16 08:59 09/05/16 20:53 550 MG Spironolactone (Aldactone Tab) 100 mg QAM PO 09/03/16 09:00 10/03/16 08:59 09/05/16 08:34 100 MG Triamcinolone Acetonide (Kenalog 0.1% Cream) 1 appln DAILY EXT 09/03/16 09:00 10/03/16 08:59 09/05/16 08:47 1 APPLN Venlafaxine HCl (effeXOR TAB) 100 mg DAILY PO 09/03/16 09:00 10/03/16 08:59 09/05/16 08:32 100 MG Polyethylene (Miralax Powder Packet) 17 gm DAILY PO 09/03/16 09:00 10/03/16 08:59 09/05/16 08:35 17 GM Acetaminophen (Tylenol Tab) 650 mg Q4H PRN PO 09/02/16 23:45 10/02/16 23:44 Glucose (Glucose 40% Gel) 15-30 GRAMS 15 GRAMS... UD PRN PO 09/03/16 00:00 10/03/16 00:00 Glucose (Glucose Chew Tab) 4-8 Tablets 4 Tabl... UD PRN PO 09/03/16 00:00 10/03/16 00:00 Dextrose (Dextrose 50% 50ML Syringe) 25-50ML OF 50% DW IV FOR... UD PRN IV 09/03/16 00:00 10/03/16 00:00 Glucagon (Glucagon Inj) 1 mg UD PRN SQ 09/03/16 00:00 10/03/16 00:00 Miscellaneous Information (Consult Glycemic Management Pharmacy) 1 ea UD PRN N/A 09/03/16 01:30 10/03/16 01:29 Ipratropium [place] (Atrovent 0.02% 0.5MG/2.5ML Neb) 0.5 mg Q4R INH 09/03/16 04:00 10/03/16 03:59 09/05/16 19:34 0.5 MG Levalbuterol (Xopenex 1.25MG/ 0.5ML Neb) 1.25 mg Q4R INH 09/03/16 04:00 10/03/16 03:59 09/05/16 19:34 1.25 MG Lactulose (Chronulac Syrup) 30 gm TID PO 09/03/16 09:00 10/03/16 08:59 09/03/16 09:45 30 GM Furosemide (Lasix Tab) 40 mg DAILYBD PO 09/03/16 16:15 10/03/16 16:14 09/05/16 17:18 40 MG Budesonide/ Formoterol Fumarate (Symbicort 80/ 4.5 Inh) 2 puffs BID INH 09/03/16 21:00 10/03/16 20:59 09/05/16 20:54 2 PUFFS Furosemide (Lasix Tab) 60 mg QAM PO 09/04/16 09:00 10/04/16 08:59 09/05/16 08:34 60 MG Insulin Aspart (novoLOG ASPART) SLIDING SCALE If C... ACHS SC 09/03/16 16:15 10/03/16 16:14 09/05/16 20:56 13 UNITS Metoprolol Tartrate (Lopressor Iv) 2.5 mg Q6 PRN IV 09/04/16 14:45 10/04/16 14:44 Prednisone (PredniSONE TAB) 40 mg DAILY PO 09/05/16 09:00 09/05/16 23:59 09/05/16 08:35 40 MG Prednisone (PredniSONE TAB) 20 mg DAILY PO 09/06/16 09:00 10/06/16 08:59 Insulin Glargine (Lantus Solostar Pen) 45 unit BID SC 09/05/16 21:00 10/05/16 20:59 09/05/16 20:58 45 UNIT
[2016-09-06] VITALS (15 sets, daily range): BP systolic 122–149; BP diastolic 54–85; PULSE 78–112; TEMP 36.5–36.9; O2SAT 91–98
[2016-09-06] MEDS: IPRATROPIUM BROMIDE NEB SOLN 0.02% 2.5 ML VIAL INH SCH ×6 (03:22→23:11)
[2016-09-06] MEDS: LEVALBUTEROL 1.25MG/0.5ML NEB INH SCH ×6 (03:22→23:11)
[2016-09-06] MEDS: LEVOTHYROXINE 112 MCG TAB PO SCH (05:21)
[2016-09-06 06:59] LABS: MEAN CELL VOLUME 80.7 fL (80-100); MEAN CORPUSCULAR HEMOGLOBIN 23.6 pg (25-34); MEAN CORPUSCULAR HGB CONC 29.3 g/dl (32-36); MEAN PLATELET VOLUME 9.1 fL (7.4-10.4); PLATELET COUNT 393 K/uL (130-400); RED BLOOD COUNT 3.47 M/uL (4.2-5.4); WHITE BLOOD COUNT 14.75 K/uL (4.8-10.8)
[2016-09-06 07:12] LABS: COMPLETE YES; HYPOCHROMIA PRESENT; IG% 0.2 %; LARGE PLATELETS 1+; LYMPH % 3.4 %; MONO % 10.4 %
[2016-09-06 07:22] LABS: BUN/CREATININE RATIO 31.8 (10-20); CALCIUM 9.4 mg/dl (8.5-10.1); POTASSIUM 4.9 mmol/L (3.5-5.1)
[2016-09-06] MEDS: INSULIN ASPART 100 UNITS/ML 3 ML PEN SC SCH ×4 (08:15→21:51)
[2016-09-06] MEDS: TRIAMCINOLONE ACET 0.1% CR 15 GM TUBE EXT SCH (09:00)
[2016-09-06] MEDS: BUDESONIDE/FORMOTEROL FUMARATE 80/4.5 60 PUFFS/INHALER INH SCH ×2 (09:00→20:05)
[2016-09-06] MEDS ORDERED: INSULIN GLARGINE SOLOSTAR 100 UNITS/ML 3 ML PEN SC SCH ×2 (09:00→21:00)
[2016-09-06] MEDS: LACTULOSE SYRUP 30 GM/45 ML UDP PO SCH ×3 (09:00→16:10)
[2016-09-06] MEDS: DOCUSATE SODIUM 100 MG CAP PO SCH ×2 (10:33→20:06)
[2016-09-06] MEDS: VENLAFAXINE HCL 50 MG TAB PO SCH (10:33)
[2016-09-06] MEDS: ASPIRIN 81 MG ECTAB PO SCH (10:33)
[2016-09-06] MEDS: POLYETHYLENE (MIRALAX) 17 GM PACK PO SCH (10:33)
[2016-09-06] MEDS: PANTOprazole SOD 40 MG TAB PO SCH ×2 (10:34→20:07)
[2016-09-06] MEDS: METOPROLOL SUCC 25MG EXT REL TAB PO SCH ×2 (10:34→20:07)
[2016-09-06] MEDS: RIFAXIMIN TAB 550 MG TAB PO SCH ×2 (10:34→20:07)
[2016-09-06] MEDS: SPIRONOLACTONE 100 MG TAB PO SCH (10:37)
--- NOTE | 2016-09-06 11:19 | Pulmonology Progress Note ---
Pulmonary Progress Note Date of Service September 06, 2016. Attending Subjective Feeling better no new complaints undergoing pt/ot Objective appears comfortable vitals reviewed HEENT: normal Heart: s1,s2 Lungs: clear b/l abd: soft, distended ext: no edema [employer]: AAO X4, no focal deficit all labs and imaging reviewed Assessment & Plan (1) Cirrhosis of liver Assessment & Plan: f/u with GI as outpatient (2) Bilateral pleural effusion Assessment & Plan: b/l effusions due to cirrhosis ? chylous : usually not chylous in cirrhosis recommend GI f/u as outpatient for possible TIPS all cultures negative d/c abx (3) Hypercapnia says she will not use bipap/trilogy at home. Would not order trilogy if patient admits that she will not compliant continue present neb rx might need repeat pfts' as outpatient f/u with pulmonary as outpatient assess for supplemental o2 requirement prior to d/c will sign off at this time Data Medications: Current Inpatient Medications Medications (Trade) Dose Ordered Sig/Virgil Route Start Time Stop Time Status Last Admin Dose Admin Aspirin (Ecotrin Tab) 81 mg MoWeFr@0900 PO 09/04/16 09:00 10/04/16 08:59 09/06/16 10:33 81 MG Atorvastatin Calcium (Lipitor Tab) 80 mg QPM PO 09/03/16 21:00 10/03/16 20:59 09/05/16 20:52 80 MG Docusate Sodium (coLACE CAP) 100 mg BID PO 09/03/16 09:00 10/03/16 08:59 09/06/16 10:33 100 MG Latanoprost (Xalatan Oph Soln) 1 drops HS OPB 09/03/16 21:00 10/03/16 20:59 09/05/16 20:54 1 DROPS Levothyroxine Sodium (Synthroid Tab) 112 mcg DAILYBB PO 09/03/16 06:00 10/03/16 05:59 09/06/16 05:21 112 MCG Metoprolol Succinate (Toprol Xl Tab) 25 mg BID PO 09/03/16 09:00 10/03/16 08:59 09/06/16 10:34 25 MG Pantoprazole Sodium (Protonix Tab) 40 mg BID PO 09/03/16 09:00 10/03/16 08:59 09/06/16 10:34 40 MG Rifaximin (Xifaxan Tab) 550 mg BID PO 09/03/16 09:00 10/03/16 08:59 09/06/16 10:34 550 MG Spironolactone (Aldactone Tab) 100 mg QAM PO 09/03/16 09:00 10/03/16 08:59 09/06/16 10:37 100 MG Triamcinolone Acetonide (Kenalog 0.1% Cream) 1 appln DAILY EXT 09/03/16 09:00 10/03/16 08:59 09/05/16 08:47 1 APPLN Venlafaxine HCl (effeXOR TAB) 100 mg DAILY PO 09/03/16 09:00 10/03/16 08:59 09/06/16 10:33 100 MG Polyethylene (Miralax Powder Packet) 17 gm DAILY PO 09/03/16 09:00 10/03/16 08:59 09/06/16 10:33 17 GM Acetaminophen (Tylenol Tab) 650 mg Q4H PRN PO 09/02/16 23:45 10/02/16 23:44 Glucose (Glucose 40% Gel) 15-30 GRAMS 15 GRAMS... UD PRN PO 09/03/16 00:00 10/03/16 00:00 Glucose (Glucose Chew Tab) 4-8 Tablets 4 Tabl... UD PRN PO 09/03/16 00:00 10/03/16 00:00 Dextrose (Dextrose 50% 50ML Syringe) 25-50ML OF 50% DW IV FOR... UD PRN IV 09/03/16 00:00 10/03/16 00:00 Glucagon (Glucagon Inj) 1 mg UD PRN SQ 09/03/16 00:00 10/03/16 00:00 Miscellaneous Information (Consult Glycemic Management Pharmacy) 1 ea UD PRN N/A 09/03/16 01:30 10/03/16 01:29 Ipratropium [place] (Atrovent 0.02% 0.5MG/2.5ML Neb) 0.5 mg Q4R INH 09/03/16 04:00 10/03/16 03:59 09/06/16 06:57 0.5 MG Levalbuterol (Xopenex 1.25MG/ 0.5ML Neb) 1.25 mg Q4R INH 09/03/16 04:00 10/03/16 03:59 09/06/16 06:58 1.25 MG Lactulose (Chronulac Syrup) 30 gm TID PO 09/03/16 09:00 10/03/16 08:59 09/03/16 09:45 30 GM Furosemide (Lasix Tab) 40 mg DAILYBD PO 09/03/16 16:15 10/03/16 16:14 Future Hold 09/05/16 17:18 40 MG Budesonide/ Formoterol Fumarate (Symbicort 80/ 4.5 Inh) 2 puffs BID INH 09/03/16 21:00 10/03/16 20:59 09/05/16 20:54 2 PUFFS Furosemide (Lasix Tab) 60 mg QAM PO 09/04/16 09:00 10/04/16 08:59 Future Hold 09/05/16 08:34 60 MG Insulin Aspart (novoLOG ASPART) SLIDING SCALE If C... ACHS SC 09/03/16 16:15 10/03/16 16:14 09/06/16 08:15 22 UNITS Metoprolol Tartrate (Lopressor Iv) 2.5 mg Q6 PRN IV 09/04/16 14:45 10/04/16 14:44 Prednisone (PredniSONE TAB) 20 mg DAILY PO 09/06/16 09:00 10/06/16 08:59 09/06/16 10:34 20 MG Insulin Glargine (Lantus Solostar Pen) 45 unit BID SC 09/05/16 21:00 10/05/16 20:59 Future hold 09/05/16 20:58 45 UNIT I & O: 24-Hour Column 09/06/16 08:00 Intake Total 320 ml Output Total 1600 ml Balance -1280 ml Vital Signs: Date Time Temp Pulse Resp B/P Pulse Ox O2 Delivery O2 Flow Rate FiO2 09/06/16 08:00 Nasal Cannula 3.0 09/06/16 07:27 36.7 109 20 122/67 96 Nasal Cannula 3.0 09/06/16 06:58 99 18 97 Nasal Cannula 3.0 09/06/16 04:00 Nasal Cannula 3.0 09/06/16 03:51 36.6 112 20 130/54 91 Nasal Cannula 3.0 09/05/16 23:59 Nasal Cannula 3.0 09/05/16 23:58 36.4 104 20 125/57 97 Nasal Cannula 2.0 09/05/16 23:32 101 18 98 Nasal Cannula 3.0 09/05/16 20:00 Nasal Cannula 3.0 09/05/16 19:42 106 18 98 Nasal Cannula 3.0 09/05/16 19:26 37.1 103 20 139/69 97 Nasal Cannula 3.0 09/05/16 16:00 95 Nasal Cannula 3.0 09/05/16 15:47 36.8 110 20 133/66 99 Room Air 3.0 09/05/16 14:25 103 18 97 Nasal Cannula 3.0 09/05/16 13:48 37.1 107 22 139/63 98 4.0 09/05/16 12:00 97 Nasal Cannula 3.0 Laboratory Results: Last 24 Hours Test 09/05/16 16:57 09/05/16 20:13 09/06/16 06:33 09/06/16 06:35 Bedside Glucose 282 mg/dl 270 mg/dl White Blood Count 14.75 K/uL Red Blood Count 3.47 M/uL Hemoglobin 8.2 g/dL Hematocrit 28.0 % Mean Corpuscular Volume 80.7 fL Mean Corpuscular Hemoglobin 23.6 pg Mean Corpuscular Hemoglobin Concent 29.3 g/dl Platelet Count 393 K/uL Mean Platelet Volume 9.1 fL Neutrophils (%) (Auto) 86.0 % Lymphocytes (%) (Auto) 3.4 % Monocytes (%) (Auto) 10.4 % Eosinophils (%) (Auto) 0.0 % Basophils (%) (Auto) 0.0 % Neutrophils # (Auto) 12.68 K/uL Lymphocytes # (Auto) 0.50 K/uL Monocytes # (Auto) 1.54 K/uL Eosinophils # (Auto) 0.00 K/uL Basophils # (Auto) 0.00 K/uL RDW Standard Deviation 56.3 fL RDW Coefficient of Variation 19.0 % Immature Granulocyte % (Auto) 0.2 % Immature Granulocyte # (Auto) 0.03 K/uL Large Platelets 1+ Hypochromasia PRESENT Sodium Level 137 mmol/L Potassium Level 4.9 mmol/L Chloride Level 97 mmol/L Carbon Dioxide Level 35 mmol/L Anion Gap 5.0 mmol/L Blood Urea Nitrogen 64 mg/dl Creatinine 2.00 mg/dl Est Creatinine Clear Calc Drug Dose 28.8 ml/min Estimated GFR () 28.0 Estimated GFR (Non- 24.2 BUN/Creatinine Ratio 31.8 Random Glucose 261 mg/dl Calcium Level 9.4 mg/dl Ammonia 37.0 umol/L Test 09/06/16 06:58 09/06/16 11:03 Bedside Glucose 249 mg/dl 161 mg/dl
--- NOTE | 2016-09-06 14:20 | Pharmacy Progress Note ---
Glycemic Control: Progress Nt Date of Service September 06, 2016. Scope Glycemic Pharmacist consulted by Dr Butler on 09/03/16 for glycemic control and to write orders per [facility] inpatient glycemic control protocol. Objective Accuchecks BSG (last 24hrs): Test 09/05/16 16:57 09/05/16 20:13 09/06/16 06:33 09/06/16 06:58 Bedside Glucose 282 mg/dl (70-90) 270 mg/dl (70-90) 249 mg/dl (70-90) Random Glucose 261 mg/dl (70-99) Test 09/06/16 11:03 Bedside Glucose 161 mg/dl (70-90) Laboratory Data (last 24hrs) Test 09/06/16 06:33 Anion Gap 5.0 mmol/L BUN/Creatinine Ratio 31.8 Blood Urea Nitrogen 64 mg/dl Creatinine 2.00 mg/dl Potassium Level 4.9 mmol/L Sodium Level 137 mmol/L White Blood Count 14.75 K/uL Red Blood Count 3.47 M/uL Hemoglobin 8.2 g/dL Hematocrit 28.0 % Mean Corpuscular Volume 80.7 fL Mean Corpuscular Hemoglobin 23.6 pg Mean Corpuscular Hemoglobin Concent 29.3 g/dl Platelet Count 393 K/uL Mean Platelet Volume 9.1 fL Neutrophils (%) (Auto) 86.0 % Lymphocytes (%) (Auto) 3.4 % Monocytes (%) (Auto) 10.4 % Eosinophils (%) (Auto) 0.0 % Basophils (%) (Auto) 0.0 % Neutrophils # (Auto) 12.68 K/uL Lymphocytes # (Auto) 0.50 K/uL Monocytes # (Auto) 1.54 K/uL Eosinophils # (Auto) 0.00 K/uL Basophils # (Auto) 0.00 K/uL Recent Pertinent Medications Outpatient Anti-diabetic Regimen: * Lantus 45 units SQ BID * NovoLog - The patient is currently receiving: * Basal insulin: Lantus 55 units every 12 hours * Correctional Insulin: Novolog Correction per scale ACHS Goal Range: Low 110 mg/dL - High 140 mg/dL Correction Factor: 10 mg/dL/unit * Prandial insulin: Per carb ratio of 1 unit per 3 grams CHO consumed Risk Factors for Insulin Resistance: * Steroids: Prednisone 20 mg po daily * Infection - pneumonia Assessment & Plan ASSESSMENT: 09/05/16 * Patient rec'd 233 units of insulin yesterday w/ BSGs ranging from 200-277 in the past 24 hours * BSGs remain somewhat elevated, however, she has had a drastic reduction in her steroid dose from yesterday to today * I am concerned that continuing the current insulin regimen will result in hypoglycemia * Based on previous records when she was on prednisone 40 mg daily, she required the following with good BSG control: * Lantus 45 units BID * CF 10 * CR 3 * Will plan to change current regimen to above and may need to further adjust tomorrow based upon BSGs 09/06/16 * Patients BSGs have improved over the past 24 hours but all BSGs remain above goal range (206, 257, 282, 270 mg/dL) * IV steroids transitioned to Prednisone 40 mg daily on 09/05, then prednisone 20 mg daily on 09/06 * Patient was on similar steroid regimen during previous admission (see above) * Insulin was empirically decreased yesterday based upon this * Of note, regimen of 45 units BID resulted in fasting BSG of 70 mg/dL after 3 days * Anticipate insulin needs to further decrease. * Change to Lantus per scale to avoid hypoglycemia * Further loosen CF/CR PLAN FOR INPATIENT GLYCEMIC CONTROL: * Decrease Lantus * 35 units SQ for BSG less than 120 * 40 units SQ for BSG 121 - 180 * 45 units SQ for BSG greater than 180 * Loosen correction factor to 12 mg/dl/unit * Loosen carb ratio of 1 unit per 4 grams CHO consumed * Lower goal range of Low 110 mg/dL - High 140 mg/dL * Please note that the plan above was derived based on current level of insulin resistance and hospital stress. These recommendations are appropriate for inpatient admission only. Plan of care upon discharge will need to be reassessed to avoid potential outpatient hypo/hyperglycemia. Thank you. RECOMMENDATIONS FOR DISCHARGE: * Good outpatient control evidenced by A1c of 6.8% (07/15/16) * Recommend resuming outpatient regimen on discharge * Lantus 45 units SQ BID * NovoLog /-
[2016-09-06] MEDS: LATANOPROST 0.005% OP SOLN 2.5 ML BTL OPB SCH (20:05)
[2016-09-06] MEDS: ATORVASTATIN 40 MG TAB PO SCH (20:06)
--- NOTE | 2016-09-06 21:50 | Progress Note ---
Medicine Progress Note Date & Time of Visit: September 06, 2016 at 16:30 . Subjective No fever. Less dyspneic. Minimal nonproductive cough. No chest pain. No nausea or vomiting. No diarrhea. Bothered by persistent tremor. . Objective Last 8 Hrs Date Time Temp Pulse Resp B/P Pulse Ox O2 Delivery O2 Flow Rate FiO2 09/06/16 20:00 95 Nasal Cannula 3.0 09/06/16 19:51 36.6 79 18 130/72 96 09/06/16 19:34 102 18 97 Nasal Cannula 3.0 09/06/16 16:55 36.6 105 18 125/61 98 09/06/16 16:00 96 Nasal Cannula 3.0 09/06/16 15:47 101 96 09/06/16 15:10 89 18 96 Nasal Cannula 3.0 Physical Exam: General- sitting in chair, no distress Eyes- anicteric Neck- + JVD Lungs- diffuse mild wheezing Heart- regular with occasional ectopy Abdomen- normal bowel sounds, soft, nontender Extremities- 2+ pretibial edema; no calf tenderness Neuro- alert, oriented; resting tremor versus asterixis - unable to write legibly . Laboratory Results: Last 24 Hours Test 09/06/16 06:33 09/06/16 06:35 09/06/16 06:58 09/06/16 11:03 White Blood Count 14.75 K/uL Red Blood Count 3.47 M/uL Hemoglobin 8.2 g/dL Hematocrit 28.0 % Mean Corpuscular Volume 80.7 fL Mean Corpuscular Hemoglobin 23.6 pg Mean Corpuscular Hemoglobin Concent 29.3 g/dl Platelet Count 393 K/uL Mean Platelet Volume 9.1 fL Neutrophils (%) (Auto) 86.0 % Lymphocytes (%) (Auto) 3.4 % Monocytes (%) (Auto) 10.4 % Eosinophils (%) (Auto) 0.0 % Basophils (%) (Auto) 0.0 % Neutrophils # (Auto) 12.68 K/uL Lymphocytes # (Auto) 0.50 K/uL Monocytes # (Auto) 1.54 K/uL Eosinophils # (Auto) 0.00 K/uL Basophils # (Auto) 0.00 K/uL RDW Standard Deviation 56.3 fL RDW Coefficient of Variation 19.0 % Immature Granulocyte % (Auto) 0.2 % Immature Granulocyte # (Auto) 0.03 K/uL Large Platelets 1+ Hypochromasia PRESENT Sodium Level 137 mmol/L Potassium Level 4.9 mmol/L Chloride Level 97 mmol/L Carbon Dioxide Level 35 mmol/L Anion Gap 5.0 mmol/L Blood Urea Nitrogen 64 mg/dl Creatinine 2.00 mg/dl Est Creatinine Clear Calc Drug Dose 28.8 ml/min Estimated GFR () 28.0 Estimated GFR (Non- 24.2 BUN/Creatinine Ratio 31.8 Random Glucose 261 mg/dl Calcium Level 9.4 mg/dl Ammonia 37.0 umol/L Bedside Glucose 249 mg/dl 161 mg/dl Test 09/06/16 16:51 09/06/16 20:21 Bedside Glucose 133 mg/dl 250 mg/dl Assessment & Plan ACUTE ON CHRONIC HYPOXIC + HYPERCAPNIC RESPIRATORY FAILURE Presented with increasing shortness of breath. Underlying COPD, pleural effusions, sleep apnea, pulmonary edema as discussed separately below. Pulmonary Medicine consulted. BiPAP or Trilogy at home recommended- patient declines. Titrate supplemental O2. COPD Continue supplemental oxygen, bronchodilators, steroids. PLEURAL EFFUSIONS Recent thoracentesis demonstrated chylous pleural effusions. Underlying pulmonary edema. Pulmonary Medicine consulted. No need for repeat thoracentesis at this time. SUSPECTED SLEEP APNEA BiPAP or Trilogy at home recommended- patient declines. PULMONARY EDEMA Chest x-ray demonstrated cardiomegaly with pulmonary edema. Echocardiogram 05/30/16 demonstrated LVEF of 70%, mild concentric LVH. May have acute on chronic left ventricular diastolic heart failure. Creatinine rising with more aggressive diuresis. Hold furosemide today. ALTERED MENTAL STATUS Presented with altered mental status. Head CT did not show any acute findings. Probable metabolic encephalopathy secondary to underlying pulmonary issues. Serum ammonia elevated; probably also had a component of hepatic encephalopathy. Improved. CIRRHOSIS OF LIVER Due to nonalcoholic fatty liver disease. Continue diuretics and rifaximin. Patient intolerant of lactulose syrup due to taste. Try powdered lactulose (Kristalose). Nonformulary. Prescription called to [facility] and will moss picker tomorrow. Further management per GI. CKD STAGE III Serum creatinine on admission 1.3. Creatinine today = 2.0. Hold furosemide today. Follow. DIABETES MELLITUS TYPE 2 Fairly well controlled at home. Recent hemoglobin A1c 6.8 on 07/15/16. Fasting blood sugar today = 249. Pharmacy consulted to assist with glycemic management. ANEMIA Hemoglobin at time of last admission on 08/25/16 was 5.7. History of portal hypertension secondary to cirrhosis. History of cecal AVMs. Recent EGD on 07/17/16 demonstrated esophageal varices. Recent colonoscopy unremarkable. Received 3 units of packed RBCs during recent hospital stay. Hemoglobin today = 8.2. Follow. VTE PROPHYLAXIS No anticoagulants because of apparent chronic GI blood loss. SCD's. Ambulate. DISPOSITION May benefit from skilled care. Case Management consulted. Family Medicine follow-up with Dr. Yann Gutierrez. visiting and given update. . Current Inpatient Medications: Current Inpatient Medications Medications (Trade) Dose Ordered Sig/Virgil Route Start Time Stop Time Status Last Admin Dose Admin Aspirin (Ecotrin Tab) 81 mg MoWeFr@0900 PO 09/04/16 09:00 10/04/16 08:59 09/06/16 10:33 81 MG Atorvastatin Calcium (Lipitor Tab) 80 mg QPM PO 09/03/16 21:00 10/03/16 20:59 09/06/16 20:06 80 MG Docusate Sodium (coLACE CAP) 100 mg BID PO 09/03/16 09:00 10/03/16 08:59 09/06/16 10:33 100 MG Latanoprost (Xalatan Oph Soln) 1 drops HS OPB 09/03/16 21:00 10/03/16 20:59 09/06/16 20:05 1 DROPS Levothyroxine Sodium (Synthroid Tab) 112 mcg DAILYBB PO 09/03/16 06:00 10/03/16 05:59 09/06/16 05:21 112 MCG Metoprolol Succinate (Toprol Xl Tab) 25 mg BID PO 09/03/16 09:00 10/03/16 08:59 09/06/16 20:07 25 MG Pantoprazole Sodium (Protonix Tab) 40 mg BID PO 09/03/16 09:00 10/03/16 08:59 09/06/16 20:07 40 MG Rifaximin (Xifaxan Tab) 550 mg BID PO 09/03/16 09:00 10/03/16 08:59 09/06/16 20:07 550 MG Spironolactone (Aldactone Tab) 100 mg QAM PO 09/03/16 09:00 10/03/16 08:59 09/06/16 10:37 100 MG Triamcinolone Acetonide (Kenalog 0.1% Cream) 1 appln DAILY EXT 09/03/16 09:00 10/03/16 08:59 09/05/16 08:47 1 APPLN Venlafaxine HCl (effeXOR TAB) 100 mg DAILY PO 09/03/16 09:00 10/03/16 08:59 09/06/16 10:33 100 MG Polyethylene (Miralax Powder Packet) 17 gm DAILY PO 09/03/16 09:00 10/03/16 08:59 09/06/16 10:33 17 GM Acetaminophen (Tylenol Tab) 650 mg Q4H PRN PO 09/02/16 23:45 10/02/16 23:44 Glucose (Glucose 40% Gel) 15-30 GRAMS 15 GRAMS... UD PRN PO 09/03/16 00:00 10/03/16 00:00 Glucose (Glucose Chew Tab) 4-8 Tablets 4 Tabl... UD PRN PO 09/03/16 00:00 10/03/16 00:00 Dextrose (Dextrose 50% 50ML Syringe) 25-50ML OF 50% DW IV FOR... UD PRN IV 09/03/16 00:00 10/03/16 00:00 Glucagon (Glucagon Inj) 1 mg UD PRN SQ 09/03/16 00:00 10/03/16 00:00 Miscellaneous Information (Consult Glycemic Management Pharmacy) 1 ea UD PRN N/A 09/03/16 01:30 10/03/16 01:29 Ipratropium [place] (Atrovent 0.02% 0.5MG/2.5ML Neb) 0.5 mg Q4R INH 09/03/16 04:00 10/03/16 03:59 09/06/16 19:34 0.5 MG Levalbuterol (Xopenex 1.25MG/ 0.5ML Neb) 1.25 mg Q4R INH 09/03/16 04:00 10/03/16 03:59 09/06/16 19:34 1.25 MG Lactulose (Chronulac Syrup) 30 gm TID PO 09/03/16 09:00 10/03/16 08:59 09/06/16 16:10 30 GM Furosemide (Lasix Tab) 40 mg DAILYBD PO 09/03/16 16:15 10/03/16 16:14 Future Hold 09/05/16 17:18 40 MG Budesonide/ Formoterol Fumarate (Symbicort 80/ 4.5 Inh) 2 puffs BID INH 09/03/16 21:00 10/03/16 20:59 09/06/16 20:05 2 PUFFS Furosemide (Lasix Tab) 60 mg QAM PO 09/04/16 09:00 10/04/16 08:59 Future Hold 09/05/16 08:34 60 MG Insulin Aspart (novoLOG ASPART) SLIDING SCALE If C... ACHS SC 09/03/16 16:15 10/03/16 16:14 09/06/16 17:15 8 UNITS Metoprolol Tartrate (Lopressor Iv) 2.5 mg Q6 PRN IV 09/04/16 14:45 10/04/16 14:44 Prednisone (PredniSONE TAB) 20 mg DAILY PO 09/06/16 09:00 10/06/16 08:59 09/06/16 10:34 20 MG Insulin Glargine (Lantus Solostar Pen) SEE PROTOCOL TEXT BID SC 09/06/16 21:00 10/06/16 20:59 Insulin Aspart (novoLOG ASPART) SLIDING SCALE If C... 0200 SC 09/07/16 02:00 09/07/16 04:00
[2016-09-07] VITALS (12 sets, daily range): BP systolic 122–154; BP diastolic 62–71; PULSE 94–108; TEMP 36.5–36.8; O2SAT 93–99
[2016-09-07] MEDS: LEVALBUTEROL 1.25MG/0.5ML NEB INH SCH ×6 (01:26→23:12)
[2016-09-07] MEDS: IPRATROPIUM BROMIDE NEB SOLN 0.02% 2.5 ML VIAL INH SCH ×6 (01:26→23:12)
[2016-09-07] MEDS ORDERED: INSULIN ASPART 100 UNITS/ML 3 ML PEN SC SCH (02:00)
[2016-09-07] MEDS: LEVOTHYROXINE 112 MCG TAB PO SCH (05:41)
[2016-09-07 07:23] LABS: EOS % 0.3 %; HEMATOCRIT 27.4 % (37-47); IG% 0.2 %; LYMPH % 7.3 %; LYMPH ABS # 0.85 K/uL (1.2-3.4); MEAN CELL VOLUME 81.5 fL (80-100); MEAN CORPUSCULAR HEMOGLOBIN 24.4 pg (25-34); MEAN CORPUSCULAR HGB CONC 29.9 g/dl (32-36); MEAN PLATELET VOLUME 9.3 fL (7.4-10.4); MONO % 16.8 %; NEUT % 75.4 %; PLATELET COUNT 370 K/uL (130-400); RED BLOOD COUNT 3.36 M/uL (4.2-5.4); WHITE BLOOD COUNT 11.67 K/uL (4.8-10.8)
[2016-09-07 07:55] LABS: COMPLETE YES; HYPOCHROMIA PRESENT
[2016-09-07] MEDS: POLYETHYLENE (MIRALAX) 17 GM PACK PO SCH (07:55)
[2016-09-07] MEDS: DOCUSATE SODIUM 100 MG CAP PO SCH ×2 (07:55→21:06)
[2016-09-07] MEDS: PANTOprazole SOD 40 MG TAB PO SCH ×2 (07:56→21:07)
[2016-09-07] MEDS: SPIRONOLACTONE 100 MG TAB PO SCH (07:56)
[2016-09-07] MEDS: RIFAXIMIN TAB 550 MG TAB PO SCH ×2 (07:56→21:08)
[2016-09-07] MEDS: VENLAFAXINE HCL 50 MG TAB PO SCH (07:56)
[2016-09-07] MEDS: LACTULOSE SYRUP 30 GM/45 ML UDP PO SCH ×2 (07:57→13:58)
[2016-09-07] MEDS: METOPROLOL SUCC 25MG EXT REL TAB PO SCH ×2 (07:57→21:07)
[2016-09-07] MEDS: TRIAMCINOLONE ACET 0.1% CR 15 GM TUBE EXT SCH (07:58)
[2016-09-07 08:02] LABS: BUN/CREATININE RATIO 37.2 (10-20); CALCIUM 9.2 mg/dl (8.5-10.1); CREATININE 1.7 mg/dl (0.60-1.20); POTASSIUM 4.4 mmol/L (3.5-5.1)
[2016-09-07] MEDS: INSULIN ASPART 100 UNITS/ML 3 ML PEN SC SCH ×4 (08:04→21:09)
[2016-09-07] MEDS ORDERED: INSULIN GLARGINE SOLOSTAR 100 UNITS/ML 3 ML PEN SC SCH (09:00)
--- NOTE | 2016-09-07 10:57 | Pharmacy Progress Note ---
Glycemic Control: Progress Nt Date of Service Sep 07, 2016. Scope Glycemic Pharmacist consulted by Dr Butler on 09/03/16 for glycemic control and to write orders per [facility] inpatient glycemic control protocol. Objective Accuchecks BSG (last 24hrs): Test 09/06/16 11:03 09/06/16 16:51 09/06/16 20:21 09/07/16 03:41 Bedside Glucose 161 mg/dl (70-90) 133 mg/dl (70-90) 250 mg/dl (70-90) 186 mg/dl (70-90) Test 09/07/16 06:35 Random Glucose 158 mg/dl (70-99) Laboratory Data (last 24hrs) Test 09/07/16 06:35 Anion Gap 7.0 mmol/L BUN/Creatinine Ratio 37.2 Blood Urea Nitrogen 63 mg/dl Creatinine 1.70 mg/dl Potassium Level 4.4 mmol/L Sodium Level 141 mmol/L White Blood Count 11.67 K/uL Red Blood Count 3.36 M/uL Hemoglobin 8.2 g/dL Hematocrit 27.4 % Mean Corpuscular Volume 81.5 fL Mean Corpuscular Hemoglobin 24.4 pg Mean Corpuscular Hemoglobin Concent 29.9 g/dl Platelet Count 370 K/uL Mean Platelet Volume 9.3 fL Neutrophils (%) (Auto) 75.4 % Lymphocytes (%) (Auto) 7.3 % Monocytes (%) (Auto) 16.8 % Eosinophils (%) (Auto) 0.3 % Basophils (%) (Auto) 0.0 % Neutrophils # (Auto) 8.80 K/uL Lymphocytes # (Auto) 0.85 K/uL Monocytes # (Auto) 1.96 K/uL Eosinophils # (Auto) 0.04 K/uL Basophils # (Auto) 0.00 K/uL Recent Pertinent Medications Outpatient Anti-diabetic Regimen: * Lantus 45 units SQ BID * NovoLog //20-30 Risk Factors for Insulin Resistance: * Steroids * Infection Assessment & Plan ASSESSMENT: * Patient is currently receiving an average of 150 units of insulin per day * ~95 units of basal insulin * ~55 units of prandial/correctional insulin * BSGs ranging 133-250 over the past 24hrs * Risk factors for insulin resistance are constant over the past 24hrs * Steroid dosing unchanged * Anticipating insulin regimen will need decreased over the next 48hrs d/t prior admission data * It seems in the past once patient is stable on home Lantus regimen her BSGs start to dip below 100 * AM Fasting BSG = 161 therefor her home regimen appears appropriate but knowing her history I hesitate to continue full dose Lantus much longer * Lunch BSG = 116, so BSGs trending down. HOLD PM LANTUS and re-evaluate in the AM. * ADA & AACE recommend a goal blood sugar range 140-180 mg/dl for the majority of critically ill & non-critically ill patients. However, more stringent targets may be selected in individual cases. PLAN FOR INPATIENT GLYCEMIC CONTROL: * Basal insulin with LANTUS 45 units SQ QAM only, HOLD PM dose * Correctional Insulin with NOVOLOG per scale ACHS or Q6hrs while NPO * Goal Range: Low 110 mg/dL - High 140 mg/dL * Correction Factor: 12 mg/dL/unit * Nutritional / Prandial insulin per carb ratio of 1 unit per 4 grams CHO consumed RECOMMENDATIONS FOR DISCHARGE: * Good outpatient control evidenced by A1c of 6.8% (07/15/16) * Recommend resuming outpatient regimen on discharge * Lantus 45 units SQ BID * NovoLog 30/30/20-30 * Please note that the plan above was derived based on current level of insulin resistance and hospital stress. These recommendations are appropriate for inpatient admission only. Plan of care upon discharge will need to be reassessed to avoid potential outpatient hypo/hyperglycemia. Thank you.
[2016-09-07] MEDS: BUDESONIDE/FORMOTEROL FUMARATE 80/4.5 60 PUFFS/INHALER INH SCH ×2 (12:20→21:06)
[2016-09-07] MEDS ORDERED: LACTULOSE SYRUP 20 GM/30 ML UDC PO SCH (21:00)
[2016-09-07] MEDS: LATANOPROST 0.005% OP SOLN 2.5 ML BTL OPB SCH (21:06)
[2016-09-07] MEDS: ATORVASTATIN 40 MG TAB PO SCH (21:07)
--- NOTE | 2016-09-07 21:43 | Progress Note ---
Medicine Progress Note Date & Time of Visit: Sep 07, 2016 at 10:50 . Subjective No fever. Minimal cough. Less short of breath. No chest pain. No nausea or vomiting. No bowel movements this morning. Voiding without difficulty. . Objective Last 8 Hrs Date Time Temp Pulse Resp B/P (MAP) Pulse Ox O2 Delivery O2 Flow Rate FiO2 09/07/16 20:00 95 Nasal Cannula 3.0 09/07/16 20:00 36.5 101 18 147/66 (93) 98 Nasal Cannula 3.0 09/07/16 19:46 95 18 98 Nasal Cannula 3.0 09/07/16 16:00 97 Nasal Cannula 3.0 09/07/16 15:59 36.7 101 20 150/70 (96) 97 Nasal Cannula 3.0 09/07/16 15:16 94 18 98 Nasal Cannula 3.0 Physical Exam: General- sitting in chair, no distress Eyes- anicteric Neck- + JVD Lungs- minimal wheezing Heart- regular rate and rhythm Abdomen- normal bowel sounds, soft, nontender Extremities- 2+ pretibial edema; no calf tenderness Neuro- alert, oriented; resting tremor versus asterixis . Laboratory Results: Last 24 Hours Test 09/07/16 03:41 09/07/16 06:35 09/07/16 07:05 09/07/16 11:41 Bedside Glucose 186 mg/dl 161 mg/dl 116 mg/dl White Blood Count 11.67 K/uL Red Blood Count 3.36 M/uL Hemoglobin 8.2 g/dL Hematocrit 27.4 % Mean Corpuscular Volume 81.5 fL Mean Corpuscular Hemoglobin 24.4 pg Mean Corpuscular Hemoglobin Concent 29.9 g/dl Platelet Count 370 K/uL Mean Platelet Volume 9.3 fL Neutrophils (%) (Auto) 75.4 % Lymphocytes (%) (Auto) 7.3 % Monocytes (%) (Auto) 16.8 % Eosinophils (%) (Auto) 0.3 % Basophils (%) (Auto) 0.0 % Neutrophils # (Auto) 8.80 K/uL Lymphocytes # (Auto) 0.85 K/uL Monocytes # (Auto) 1.96 K/uL Eosinophils # (Auto) 0.04 K/uL Basophils # (Auto) 0.00 K/uL RDW Standard Deviation 57.7 fL RDW Coefficient of Variation 19.1 % Immature Granulocyte % (Auto) 0.2 % Immature Granulocyte # (Auto) 0.02 K/uL Hypochromasia PRESENT Sodium Level 141 mmol/L Potassium Level 4.4 mmol/L Chloride Level 99 mmol/L Carbon Dioxide Level 35 mmol/L Anion Gap 7.0 mmol/L Blood Urea Nitrogen 63 mg/dl Creatinine 1.70 mg/dl Est Creatinine Clear Calc Drug Dose 33.7 ml/min Estimated GFR () 34.1 Estimated GFR (Non- 29.4 BUN/Creatinine Ratio 37.2 Random Glucose 158 mg/dl Calcium Level 9.2 mg/dl Test 09/07/16 16:46 09/07/16 21:03 Bedside Glucose 168 mg/dl 244 mg/dl Assessment & Plan ACUTE ON CHRONIC HYPOXIC + HYPERCAPNIC RESPIRATORY FAILURE Presented with increasing shortness of breath. Underlying COPD, pleural effusions, sleep apnea, pulmonary edema as discussed separately below. Pulmonary Medicine consulted. BiPAP or Trilogy at home recommended- patient declines. Titrate supplemental O2. COPD Continue supplemental oxygen, bronchodilators, steroids. PLEURAL EFFUSIONS Recent thoracentesis demonstrated chylous pleural effusions. Underlying pulmonary edema. Pulmonary Medicine consulted. No need for repeat thoracentesis at this time. SUSPECTED SLEEP APNEA BiPAP or Trilogy at home recommended- patient declines. PULMONARY EDEMA Chest x-ray demonstrated cardiomegaly with pulmonary edema. Echocardiogram 05/30/16 demonstrated LVEF of 70%, mild concentric LVH. May have acute on chronic left ventricular diastolic heart failure. Creatinine rising with more aggressive diuresis. Furosemide held due to worsening renal function. Creatinine better today; tensely restart furosemide tomorrow. ALTERED MENTAL STATUS Presented with altered mental status. Head CT did not show any acute findings. Probable metabolic encephalopathy secondary to underlying pulmonary issues. Serum ammonia elevated; probably also had a component of hepatic encephalopathy. Improved. CIRRHOSIS OF LIVER Due to nonalcoholic fatty liver disease. Continue diuretics and rifaximin. Patient intolerant of lactulose syrup due to taste. Try powdered lactulose (Kristalose). Further management per GI. CKD STAGE III Serum creatinine on admission 1.3. Creatinine jarad as high as 2.0 with more aggressive diuresis. Furosemide held. Creatinine today =1.7 Follow. DIABETES MELLITUS TYPE 2 Fairly well controlled at home. Recent hemoglobin A1c 6.8 on 07/15/16. Fasting blood sugar today = 161. Pharmacy consulted to assist with glycemic management. ANEMIA Hemoglobin at time of last admission on 08/25/16 was 5.7. History of portal hypertension secondary to cirrhosis. History of cecal AVMs. Recent EGD on 07/17/16 demonstrated esophageal varices. Recent colonoscopy unremarkable. Received 3 units of packed RBCs during recent hospital stay. Hemoglobin today stable @ 8.2. Follow. VTE PROPHYLAXIS No anticoagulants because of apparent chronic GI blood loss. SCD's. Ambulate. DISPOSITION May benefit from skilled care. Case Management consulted. Family Medicine follow-up with Dr. Yann Gutierrez. . Current Inpatient Medications: Current Inpatient Medications Medications (Trade) Dose Ordered Sig/Virgil Route Start Time Stop Time Status Last Admin Dose Admin Aspirin (Ecotrin Tab) 81 mg MoWeFr@0900 PO 09/04/16 09:00 10/04/16 08:59 09/06/16 10:33 81 MG Atorvastatin Calcium (Lipitor Tab) 80 mg QPM PO 09/03/16 21:00 10/03/16 20:59 09/07/16 21:07 80 MG Docusate Sodium (coLACE CAP) 100 mg BID PO 09/03/16 09:00 10/03/16 08:59 09/07/16 21:06 100 MG Latanoprost (Xalatan Oph Soln) 1 drops HS OPB 09/03/16 21:00 10/03/16 20:59 09/07/16 21:06 1 DROPS Levothyroxine Sodium (Synthroid Tab) 112 mcg DAILYBB PO 09/03/16 06:00 10/03/16 05:59 09/07/16 05:41 112 MCG Metoprolol Succinate (Toprol Xl Tab) 25 mg BID PO 09/03/16 09:00 10/03/16 08:59 09/07/16 21:07 25 MG Pantoprazole Sodium (Protonix Tab) 40 mg BID PO 09/03/16 09:00 10/03/16 08:59 09/07/16 21:07 40 MG Rifaximin (Xifaxan Tab) 550 mg BID PO 09/03/16 09:00 10/03/16 08:59 09/07/16 21:08 550 MG Spironolactone (Aldactone Tab) 100 mg QAM PO 09/03/16 09:00 10/03/16 08:59 09/07/16 07:56 100 MG Triamcinolone Acetonide (Kenalog 0.1% Cream) 1 appln DAILY EXT 09/03/16 09:00 10/03/16 08:59 09/05/16 08:47 1 APPLN Venlafaxine HCl (effeXOR TAB) 100 mg DAILY PO 09/03/16 09:00 10/03/16 08:59 09/07/16 07:56 100 MG Polyethylene (Miralax Powder Packet) 17 gm DAILY PO 09/03/16 09:00 10/03/16 08:59 09/07/16 07:55 17 GM Acetaminophen (Tylenol Tab) 650 mg Q4H PRN PO 09/02/16 23:45 10/02/16 23:44 Glucose (Glucose 40% Gel) 15-30 GRAMS 15 GRAMS... UD PRN PO 09/03/16 00:00 10/03/16 00:00 Glucose (Glucose Chew Tab) 4-8 Tablets 4 Tabl... UD PRN PO 09/03/16 00:00 10/03/16 00:00 Dextrose (Dextrose 50% 50ML Syringe) 25-50ML OF 50% DW IV FOR... UD PRN IV 09/03/16 00:00 10/03/16 00:00 Glucagon (Glucagon Inj) 1 mg UD PRN SQ 09/03/16 00:00 10/03/16 00:00 Miscellaneous Information (Consult Glycemic Management Pharmacy) 1 ea UD PRN N/A 09/03/16 01:30 10/03/16 01:29 Ipratropium [place] (Atrovent 0.02% 0.5MG/2.5ML Neb) 0.5 mg Q4R INH 09/03/16 04:00 10/03/16 03:59 09/07/16 19:46 0.5 MG Levalbuterol (Xopenex 1.25MG/ 0.5ML Neb) 1.25 mg Q4R INH 09/03/16 04:00 10/03/16 03:59 09/07/16 19:46 1.25 MG Furosemide (Lasix Tab) 40 mg DAILYBD PO 09/03/16 16:15 10/03/16 16:14 Future Hold 09/05/16 17:18 40 MG Budesonide/ Formoterol Fumarate (Symbicort 80/ 4.5 Inh) 2 puffs BID INH 09/03/16 21:00 10/03/16 20:59 09/07/16 21:06 2 PUFFS Furosemide (Lasix Tab) 60 mg QAM PO 09/04/16 09:00 10/04/16 08:59 Future Hold 09/05/16 08:34 60 MG Insulin Aspart (novoLOG ASPART) SLIDING SCALE If C... ACHS SC 09/03/16 16:15 10/03/16 16:14 09/07/16 21:09 12 UNITS Metoprolol Tartrate (Lopressor Iv) 2.5 mg Q6 PRN IV 09/04/16 14:45 10/04/16 14:44 Prednisone (PredniSONE TAB) 20 mg DAILY PO 09/06/16 09:00 10/06/16 08:59 09/07/16 07:57 20 MG Insulin Glargine (Lantus Solostar Pen) 45 unit BID SC 09/07/16 09:00 10/07/16 08:59 Future Hold 09/07/16 08:05 45 UNIT Lactulose (Chronulac Syrup) 10 gm BID PO 09/07/16 21:00 10/07/16 20:59
[2016-09-08] VITALS (12 sets, daily range): BP systolic 127–164; BP diastolic 54–73; PULSE 68–112; TEMP 36.3–37; O2SAT 95–99
[2016-09-08] MEDS: IPRATROPIUM BROMIDE NEB SOLN 0.02% 2.5 ML VIAL INH SCH ×6 (03:16→23:04)
[2016-09-08] MEDS: LEVALBUTEROL 1.25MG/0.5ML NEB INH SCH ×6 (03:16→23:04)
[2016-09-08] MEDS: LEVOTHYROXINE 112 MCG TAB PO SCH (05:51)
[2016-09-08 06:21] LABS: HEMATOCRIT 28.4 % (37-47)
[2016-09-08 06:51] LABS: BUN/CREATININE RATIO 34.8 (10-20); CALCIUM 8.8 mg/dl (8.5-10.1); CREATININE 1.6 mg/dl (0.60-1.20); POTASSIUM 4.8 mmol/L (3.5-5.1)
[2016-09-08] MEDS: DOCUSATE SODIUM 100 MG CAP PO SCH ×2 (07:48→21:08)
[2016-09-08] MEDS: SPIRONOLACTONE 100 MG TAB PO SCH (07:48)
[2016-09-08] MEDS: BUDESONIDE/FORMOTEROL FUMARATE 80/4.5 60 PUFFS/INHALER INH SCH ×2 (07:48→21:09)
[2016-09-08] MEDS: VENLAFAXINE HCL 50 MG TAB PO SCH (07:48)
[2016-09-08] MEDS: RIFAXIMIN TAB 550 MG TAB PO SCH ×2 (07:49→21:08)
[2016-09-08] MEDS: PANTOprazole SOD 40 MG TAB PO SCH ×2 (07:49→21:09)
[2016-09-08] MEDS: METOPROLOL SUCC 25MG EXT REL TAB PO SCH ×2 (07:49→21:08)
[2016-09-08] MEDS: ASPIRIN 81 MG ECTAB PO SCH (07:49)
[2016-09-08] MEDS: TRIAMCINOLONE ACET 0.1% CR 15 GM TUBE EXT SCH (07:50)
[2016-09-08] MEDS: POLYETHYLENE (MIRALAX) 17 GM PACK PO SCH (07:51)
[2016-09-08] MEDS: LACTULOSE PO SCH ×2 (07:52→21:08)
[2016-09-08] MEDS: INSULIN ASPART 100 UNITS/ML 3 ML PEN SC SCH ×4 (07:54→21:10)
[2016-09-08] MEDS ORDERED: INSULIN GLARGINE SOLOSTAR 100 UNITS/ML 3 ML PEN SC SCH (09:00)
[2016-09-08] MEDS: FUROSEMIDE 40 MG TAB PO SCH ×2 (09:00→17:36)
--- NOTE | 2016-09-08 09:28 | Pharmacy Progress Note ---
Glycemic Control: Progress Nt Date of Service Sep 08, 2016. Scope Glycemic Pharmacist consulted by Dr Butler on 09/03/16 for glycemic control and to write orders per [facility] inpatient glycemic control protocol. Objective Accuchecks BSG (last 24hrs): Test 09/07/16 11:41 09/07/16 16:46 09/07/16 21:03 09/08/16 05:59 Bedside Glucose 116 mg/dl (70-90) 168 mg/dl (70-90) 244 mg/dl (70-90) Random Glucose 252 mg/dl (70-99) Laboratory Data (last 24hrs) Test 09/08/16 05:59 Anion Gap 6.0 mmol/L BUN/Creatinine Ratio 34.8 Blood Urea Nitrogen 56 mg/dl Creatinine 1.60 mg/dl Potassium Level 4.8 mmol/L Sodium Level 139 mmol/L Recent Pertinent Medications Outpatient Anti-diabetic Regimen: * Lantus 45 units SQ BID * NovoLog //-30 Risk Factors for Insulin Resistance: * Steroids * Infection Assessment & Plan ASSESSMENT: * Fasting BSG back to 253 mg/dL due to PM Lantus dose being held * I originally thought based on prior admission data that the patient would continue to trend down yesterday and that was not the case * Re-order home regimen and tighten Novolog with dinner only has prednisone seems to be spiking causing HS BSG to be elevated consistently * ADA & AACE recommend a goal blood sugar range 140-180 mg/dl for the majority of critically ill & non-critically ill patients. However, more stringent targets may be selected in individual cases. PLAN FOR INPATIENT GLYCEMIC CONTROL: * Basal insulin with LANTUS 45 units SQ BID * Correctional Insulin with NOVOLOG per scale ACHS or Q6hrs while NPO * Goal Range: Low 110 mg/dL - High 140 mg/dL * Correction Factor: 12 mg/dL/unit, 10 mg/dL at dinner only * Nutritional / Prandial insulin per carb ratio of 1 unit per 4 grams CHO consumed, carb ratio of 3 for dinner only RECOMMENDATIONS FOR DISCHARGE: * Good outpatient control evidenced by A1c of 6.8% (07/15/16) * Recommend resuming outpatient regimen on discharge * Lantus 45 units SQ BID * NovoLog //-30 * Please note that the plan above was derived based on current level of insulin resistance and hospital stress. These recommendations are appropriate for inpatient admission only. Plan of care upon discharge will need to be reassessed to avoid potential outpatient hypo/hyperglycemia. Thank you.
[2016-09-08] MEDS: ATORVASTATIN 40 MG TAB PO SCH (21:08)
[2016-09-08] MEDS: LATANOPROST 0.005% OP SOLN 2.5 ML BTL OPB SCH (21:09)
[2016-09-08] MEDS: INSULIN GLARGINE SOLOSTAR 100 UNITS/ML 3 ML PEN SC SCH (21:10)
--- NOTE | 2016-09-08 23:31 | Progress Note ---
Medicine Progress Note Date & Time of Visit: Sep 08, 2016 at 19:00 . Subjective Prefers new formulation of lactulose (Kristalose). No fever. No chest pain. Dyspnea improved. No nausea or vomiting. Loose stools on lactulose. No melena or hematochezia. . Objective Last 8 Hrs Date Time Temp Pulse Resp B/P (MAP) Pulse Ox O2 Delivery O2 Flow Rate FiO2 09/08/16 23:04 102 18 98 Nasal Cannula 3.0 09/08/16 20:00 Nasal Cannula 3.0 09/08/16 19:38 37.0 94 19 136/54 (81) 97 Nasal Cannula 3.0 09/08/16 19:26 96 16 97 Nasal Cannula 3.0 09/08/16 16:00 Nasal Cannula 3.0 09/08/16 15:32 36.7 89 19 127/56 (79) 99 Nasal Cannula 3.0 Physical Exam: General- sitting in chair, no distress Eyes- anicteric Neck- + JVD Lungs- essentially clear Heart- regular rate and rhythm Abdomen- normal bowel sounds, soft, nontender Extremities- 2+ pretibial edema; chronic venous stasis changes; no calf tenderness Neuro- alert, oriented . Laboratory Results: Last 24 Hours Test 09/08/16 05:59 09/08/16 06:56 09/08/16 11:06 09/08/16 11:29 Hemoglobin 8.6 g/dL Hematocrit 28.4 % Sodium Level 139 mmol/L Potassium Level 4.8 mmol/L Chloride Level 99 mmol/L Carbon Dioxide Level 34 mmol/L Anion Gap 6.0 mmol/L Blood Urea Nitrogen 56 mg/dl Creatinine 1.60 mg/dl Est Creatinine Clear Calc Drug Dose 36.1 ml/min Estimated GFR () 36.7 Estimated GFR (Non- 31.6 BUN/Creatinine Ratio 34.8 Random Glucose 252 mg/dl Calcium Level 8.8 mg/dl Bedside Glucose 253 mg/dl 197 mg/dl 196 mg/dl Test 09/08/16 16:05 09/08/16 20:45 Bedside Glucose 148 mg/dl 244 mg/dl Assessment & Plan ACUTE ON CHRONIC HYPOXIC + HYPERCAPNIC RESPIRATORY FAILURE Presented with increasing shortness of breath. Underlying COPD, pleural effusions, sleep apnea, pulmonary edema as discussed separately below. Pulmonary Medicine consulted. BiPAP or Trilogy at home recommended- patient declines. Titrate supplemental O2. COPD Continue supplemental oxygen, bronchodilators, steroids. PLEURAL EFFUSIONS Recent thoracentesis demonstrated chylous pleural effusions. Underlying pulmonary edema. Pulmonary Medicine consulted. No need for repeat thoracentesis at this time. SUSPECTED SLEEP APNEA BiPAP or Trilogy at home recommended- patient declines. CORONARY ARTERY DISEASE No anginal symptoms. Continue aspirin and metoprolol. Consider switching to nonselective beta moises to light of cirrhosis with portal hypertension. PULMONARY EDEMA Chest x-ray demonstrated cardiomegaly with pulmonary edema. Echocardiogram 05/30/16 demonstrated LVEF of 70%, mild concentric LVH. May have acute on chronic left ventricular diastolic heart failure. Creatinine jarad with more aggressive diuresis. Furosemide held due to worsening renal function , then restarted Check follow-up chest x-ray tomorrow. ALTERED MENTAL STATUS Presented with altered mental status. Head CT did not show any acute findings. Probable metabolic encephalopathy secondary to underlying pulmonary issues. Serum ammonia elevated; probably also had a component of hepatic encephalopathy. Improved. CIRRHOSIS OF LIVER Due to nonalcoholic fatty liver disease. Continue diuretics and rifaximin. Patient intolerant of lactulose syrup due to taste. Switched to powdered lactulose (Kristalose). Further management per GI. CKD STAGE III Serum creatinine on admission 1.3. Creatinine jarad as high as 2.0 with more aggressive diuresis. Furosemide held. Creatinine today =1.6 Follow. DIABETES MELLITUS TYPE 2 Fairly well controlled at home. Recent hemoglobin A1c 6.8 on 07/15/16. Fasting blood sugar today = 253. Pharmacy consulted to assist with glycemic management. ANEMIA Hemoglobin at time of last admission on 08/25/16 was 5.7. History of portal hypertension secondary to cirrhosis. History of cecal AVMs. Recent EGD on 07/17/16 demonstrated esophageal varices. Recent colonoscopy unremarkable. Received 3 units of packed RBCs during recent hospital stay. Hemoglobin today stable @ 8.6. Follow. VTE PROPHYLAXIS No anticoagulants because of apparent chronic GI blood loss. SCD's. Ambulate. DISPOSITION May benefit from skilled care. Case Management consulted. Family Medicine follow-up with Dr. Yann Gutierrez. . Current Inpatient Medications: Current Inpatient Medications Medications (Trade) Dose Ordered Sig/Virgil Route Start Time Stop Time Status Last Admin Dose Admin Aspirin (Ecotrin Tab) 81 mg MoWeFr@0900 PO 09/04/16 09:00 10/04/16 08:59 09/08/16 07:49 81 MG Atorvastatin Calcium (Lipitor Tab) 80 mg QPM PO 09/03/16 21:00 10/03/16 20:59 09/08/16 21:08 80 MG Docusate Sodium (coLACE CAP) 100 mg BID PO 09/03/16 09:00 10/03/16 08:59 09/08/16 21:08 100 MG Latanoprost (Xalatan Oph Soln) 1 drops HS OPB 09/03/16 21:00 10/03/16 20:59 09/08/16 21:09 1 DROPS Levothyroxine Sodium (Synthroid Tab) 112 mcg DAILYBB PO 09/03/16 06:00 10/03/16 05:59 09/08/16 05:51 112 MCG Metoprolol Succinate (Toprol Xl Tab) 25 mg BID PO 09/03/16 09:00 10/03/16 08:59 09/08/16 21:08 25 MG Pantoprazole Sodium (Protonix Tab) 40 mg BID PO 09/03/16 09:00 10/03/16 08:59 09/08/16 21:09 40 MG Rifaximin (Xifaxan Tab) 550 mg BID PO 09/03/16 09:00 10/03/16 08:59 09/08/16 21:08 550 MG Spironolactone (Aldactone Tab) 100 mg QAM PO 09/03/16 09:00 10/03/16 08:59 09/08/16 07:48 100 MG Triamcinolone Acetonide (Kenalog 0.1% Cream) 1 appln DAILY EXT 09/03/16 09:00 10/03/16 08:59 09/05/16 08:47 1 APPLN Venlafaxine HCl (effeXOR TAB) 100 mg DAILY PO 09/03/16 09:00 10/03/16 08:59 09/08/16 07:48 100 MG Polyethylene (Miralax Powder Packet) 17 gm DAILY PO 09/03/16 09:00 10/03/16 08:59 09/07/16 07:55 17 GM Acetaminophen (Tylenol Tab) 650 mg Q4H PRN PO 09/02/16 23:45 6/26/17 23:44 Glucose (Glucose 40% Gel) 15-30 GRAMS 15 GRAMS... UD PRN PO 09/03/16 00:00 10/03/16 00:00 Glucose (Glucose Chew Tab) 4-8 Tablets 4 Tabl... UD PRN PO 09/03/16 00:00 10/03/16 00:00 Dextrose (Dextrose 50% 50ML Syringe) 25-50ML OF 50% DW IV FOR... UD PRN IV 09/03/16 00:00 10/03/16 00:00 Glucagon (Glucagon Inj) 1 mg UD PRN SQ 09/03/16 00:00 10/03/16 00:00 Miscellaneous Information (Consult Glycemic Management Pharmacy) 1 ea UD PRN N/A 09/03/16 01:30 10/03/16 01:29 Ipratropium [place] (Atrovent 0.02% 0.5MG/2.5ML Neb) 0.5 mg Q4R INH 09/03/16 04:00 10/03/16 03:59 09/08/16 23:04 0.5 MG Levalbuterol (Xopenex 1.25MG/ 0.5ML Neb) 1.25 mg Q4R INH 09/03/16 04:00 10/03/16 03:59 09/08/16 23:04 1.25 MG Budesonide/ Formoterol Fumarate (Symbicort 80/ 4.5 Inh) 2 puffs BID INH 09/03/16 21:00 10/03/16 20:59 09/08/16 21:09 2 PUFFS Metoprolol Tartrate (Lopressor Iv) 2.5 mg Q6 PRN IV 09/04/16 14:45 10/04/16 14:44 Prednisone (PredniSONE TAB) 20 mg DAILY PO 09/06/16 09:00 10/06/16 08:59 09/08/16 07:49 20 MG Furosemide (Lasix Tab) 40 mg BID17 PO 09/08/16 09:00 10/08/16 08:59 09/08/16 17:36 40 MG Lactulose (Kristalose Powder Packet) 10 gm BID PO 09/08/16 09:00 10/08/16 08:59 09/08/16 21:08 10 GM Insulin Aspart (novoLOG ASPART) SLIDING SCALE If C... TID@0700,1100,2100 NE 09/08/16 11:00 10/08/16 10:59 09/08/16 21:10 9 UNITS Insulin Aspart (novoLOG ASPART) SLIDING SCALE If C... DAILY@1615 NE 09/08/16 16:15 10/08/16 16:14 09/08/16 17:38 14 UNITS Insulin Glargine (Lantus Solostar Pen) 45 unit BID NE 09/08/16 21:00 10/08/16 20:59 09/08/16 21:10 45 UNIT
[2016-09-09] VITALS (14 sets, daily range): BP systolic 120–149; BP diastolic 55–82; PULSE 70–106; TEMP 36.4–37; O2SAT 93–100
[2016-09-09] MEDS: LEVALBUTEROL 1.25MG/0.5ML NEB INH SCH ×6 (03:31→23:00)
[2016-09-09] MEDS: IPRATROPIUM BROMIDE NEB SOLN 0.02% 2.5 ML VIAL INH SCH ×6 (03:31→23:00)
[2016-09-09] MEDS: LEVOTHYROXINE 112 MCG TAB PO SCH (05:54)
[2016-09-09 07:15] LABS: HEMATOCRIT 28.3 % (37-47)
[2016-09-09] MEDS: RIFAXIMIN TAB 550 MG TAB PO SCH ×2 (07:58→21:35)
[2016-09-09] MEDS: SPIRONOLACTONE 100 MG TAB PO SCH (07:59)
[2016-09-09] MEDS: FUROSEMIDE 40 MG TAB PO SCH ×2 (07:59→17:20)
[2016-09-09] MEDS: DOCUSATE SODIUM 100 MG CAP PO SCH ×2 (07:59→21:35)
[2016-09-09] MEDS: METOPROLOL SUCC 25MG EXT REL TAB PO SCH ×2 (07:59→21:35)
[2016-09-09] MEDS: VENLAFAXINE HCL 50 MG TAB PO SCH (07:59)
[2016-09-09] MEDS: POLYETHYLENE (MIRALAX) 17 GM PACK PO SCH (08:00)
[2016-09-09] MEDS: PANTOprazole SOD 40 MG TAB PO SCH ×2 (08:00→21:35)
[2016-09-09 08:01] LABS: BUN/CREATININE RATIO 33.4 (10-20); CALCIUM 8.7 mg/dl (8.5-10.1); CREATININE 1.5 mg/dl (0.60-1.20); POTASSIUM 4.9 mmol/L (3.5-5.1)
[2016-09-09] MEDS: LACTULOSE PO SCH ×2 (08:01→21:36)
[2016-09-09] MEDS: BUDESONIDE/FORMOTEROL FUMARATE 80/4.5 60 PUFFS/INHALER INH SCH ×2 (08:02→21:36)
[2016-09-09] MEDS: INSULIN GLARGINE SOLOSTAR 100 UNITS/ML 3 ML PEN SC SCH ×2 (08:06→21:39)
[2016-09-09] MEDS: TRIAMCINOLONE ACET 0.1% CR 15 GM TUBE EXT SCH (08:07)
[2016-09-09] MEDS: INSULIN ASPART 100 UNITS/ML 3 ML PEN SC SCH ×4 (08:11→21:39)
--- NOTE | 2016-09-09 09:28 | DIAGNOSTIC IMAGING REPORT ---
CHEST 2 VIEWS ROUTINE HISTORY: Short of breath. COMPARISON: Chest 09/02/2016. FINDINGS: Heart remains mildly enlarged. Small right and [id number] left pleural effusions have slightly improved. Mild edema has also slightly improved. No pneumothorax. Left shoulder prosthesis. IMPRESSION: Slight improvement in the pulmonary edema and bilateral pleural effusions Electronically signed by: Armando Dunbar M.D. 09/09/2016 9:27 AM Dictated Date/Time: 09/09/2016 9:25 AM
[2016-09-09] MEDS: ATORVASTATIN 40 MG TAB PO SCH (21:35)
[2016-09-09] MEDS: LATANOPROST 0.005% OP SOLN 2.5 ML BTL OPB SCH (21:36)
--- NOTE | 2016-09-09 23:27 | Progress Note ---
Medicine Progress Note Date & Time of Visit: Sep 09, 2016 at 16:30 . Subjective Doing fairly well. visiting. More cheerful today. No fever. Cough and dyspnea improved. No chest pain. No nausea or vomiting. Prefers new formulation of lactulose, but not having many bowel movements at current dosage. No urinary symptoms. . Objective Last 8 Hrs Date Time Temp Pulse Resp B/P (MAP) Pulse Ox O2 Delivery O2 Flow Rate FiO2 09/09/16 23:01 96 18 98 Nasal Cannula 3.0 09/09/16 20:00 Nasal Cannula 3.0 09/09/16 19:08 36.9 93 21 137/61 (86) 93 Nasal Cannula 3.0 09/09/16 19:03 84 18 93 Nasal Cannula 3.0 09/09/16 16:00 98 Nasal Cannula 3.0 09/09/16 15:43 36.6 86 20 120/55 (76) 98 Nasal Cannula 3.0 Physical Exam: General- sitting in chair, no distress Eyes- anicteric Neck- + JVD Lungs- clear Heart- regular rate and rhythm Abdomen- normal bowel sounds, soft, nontender Extremities- 2+ pretibial edema; chronic venous stasis changes; no calf tenderness Neuro- alert, oriented . Laboratory Results: Last 24 Hours Test 09/09/16 06:00 09/09/16 06:44 09/09/16 10:45 09/09/16 16:30 Hemoglobin 8.2 g/dL Hematocrit 28.3 % Sodium Level 140 mmol/L Potassium Level 4.9 mmol/L Chloride Level 100 mmol/L Carbon Dioxide Level 33 mmol/L Anion Gap 7.0 mmol/L Blood Urea Nitrogen 50 mg/dl Creatinine 1.50 mg/dl Est Creatinine Clear Calc Drug Dose 38.5 ml/min Estimated GFR () 39.6 Estimated GFR (Non- 34.2 BUN/Creatinine Ratio 33.4 Random Glucose 199 mg/dl Calcium Level 8.7 mg/dl Bedside Glucose 205 mg/dl 145 mg/dl 215 mg/dl Test 09/09/16 20:12 Bedside Glucose 189 mg/dl Assessment & Plan ACUTE ON CHRONIC HYPOXIC + HYPERCAPNIC RESPIRATORY FAILURE Presented with increasing shortness of breath. Underlying COPD, pleural effusions, sleep apnea, pulmonary edema as discussed separately below. Pulmonary Medicine consulted. BiPAP or Trilogy at home recommended- patient declines. Titrate supplemental O2. COPD Continue supplemental oxygen, bronchodilators, steroids. Taper steroids. PLEURAL EFFUSIONS Recent thoracentesis demonstrated chylous pleural effusions. Underlying pulmonary edema. Pulmonary Medicine consulted. No need for repeat thoracentesis at this time. SUSPECTED SLEEP APNEA BiPAP or Trilogy at home recommended- patient declines. CORONARY ARTERY DISEASE No anginal symptoms. Taking aspirin and metoprolol. Switch beta moises from metoprolol to nadolol light of cirrhosis with portal hypertension. PULMONARY EDEMA Chest x-ray on admission demonstrated cardiomegaly with pulmonary edema. Echocardiogram 05/30/16 demonstrated LVEF of 70%, mild concentric LVH. May have acute on chronic left ventricular diastolic heart failure. Creatinine jarad with more aggressive diuresis. Furosemide held due to worsening renal function , then restarted Chest x-ray today demonstrated slight improvement in pulmonary edema and bilateral pleural effusions. Continue diuretics. ALTERED MENTAL STATUS Presented with altered mental status. Head CT did not show any acute findings. Probable metabolic encephalopathy secondary to underlying pulmonary issues. Serum ammonia elevated; probably also had a component of hepatic encephalopathy. Improved. CIRRHOSIS OF LIVER Due to nonalcoholic fatty liver disease. Continue diuretics and rifaximin. Patient intolerant of lactulose syrup due to taste. Switched to powdered lactulose (Kristalose). She prefers Kristalose over lactulose syrup, but not having many bowel movements. Increase Kristalose to 20 mg BID. Further management per GI. CKD STAGE III Serum creatinine on admission 1.3. Creatinine jarad as high as 2.0 with more aggressive diuresis. Furosemide held. Creatinine today = 1.5. Follow. DIABETES MELLITUS TYPE 2 Fairly well controlled at home. Recent hemoglobin A1c 6.8 on 07/15/16. Fasting blood sugar today = 205. Pharmacy consulted to assist with glycemic management. Taper steroids. ANEMIA Hemoglobin at time of last admission on 08/25/16 was 5.7. History of portal hypertension secondary to cirrhosis. History of cecal AVMs. Recent EGD on 07/17/16 demonstrated esophageal varices. Recent colonoscopy unremarkable. Received 3 units of packed RBCs during recent hospital stay. Hemoglobin today stable @ 8.2. Transfuse to maintain adequate H/H. Reasonable hemoglobin goal > 8 unless symptomatic. Order iron supplementation. Follow. VTE PROPHYLAXIS No anticoagulants because of apparent chronic GI blood loss. SCD's. Ambulate. DISPOSITION May benefit from skilled care. Case Management consulted. Family Medicine follow-up with Dr. Yann Gutierrez. . Consultants: Pulmonary Medicine . Procedures: Cardiac monitoring Intravenous medications BiPAP CT head Venous duplex lower extremities . Current Inpatient Medications: Current Inpatient Medications Medications (Trade) Dose Ordered Sig/Virgil Route Start Time Stop Time Status Last Admin Dose Admin Aspirin (Ecotrin Tab) 81 mg MoWeFr@0900 PO 09/04/16 09:00 10/04/16 08:59 09/08/16 07:49 81 MG Atorvastatin Calcium (Lipitor Tab) 80 mg QPM PO 09/03/16 21:00 10/03/16 20:59 09/09/16 21:35 80 MG Docusate Sodium (coLACE CAP) 100 mg BID PO 09/03/16 09:00 10/03/16 08:59 09/09/16 21:35 100 MG Latanoprost (Xalatan Oph Soln) 1 drops HS OPB 09/03/16 21:00 10/03/16 20:59 09/09/16 21:36 1 DROPS Levothyroxine Sodium (Synthroid Tab) 112 mcg DAILYBB PO 09/03/16 06:00 10/03/16 05:59 09/09/16 05:54 112 MCG Metoprolol Succinate (Toprol Xl Tab) 25 mg BID PO 09/03/16 09:00 10/03/16 08:59 09/09/16 21:35 25 MG Pantoprazole Sodium (Protonix Tab) 40 mg BID PO 09/03/16 09:00 10/03/16 08:59 09/09/16 21:35 40 MG Rifaximin (Xifaxan Tab) 550 mg BID PO 09/03/16 09:00 10/03/16 08:59 09/09/16 21:35 550 MG Spironolactone (Aldactone Tab) 100 mg QAM PO 09/03/16 09:00 10/03/16 08:59 09/09/16 07:59 100 MG Triamcinolone Acetonide (Kenalog 0.1% Cream) 1 appln DAILY EXT 09/03/16 09:00 10/03/16 08:59 09/09/16 08:07 1 APPLN Venlafaxine HCl (effeXOR TAB) 100 mg DAILY PO 5/28/17 09:00 10/03/16 08:59 09/09/16 07:59 100 MG Polyethylene (Miralax Powder Packet) 17 gm DAILY PO 09/03/16 09:00 10/03/16 08:59 09/09/16 08:00 17 GM Acetaminophen (Tylenol Tab) 650 mg Q4H PRN PO 09/02/16 23:45 10/02/16 23:44 Glucose (Glucose 40% Gel) 15-30 GRAMS 15 GRAMS... UD PRN PO 09/03/16 00:00 10/03/16 00:00 Glucose (Glucose Chew Tab) 4-8 Tablets 4 Tabl... UD PRN PO 09/03/16 00:00 10/03/16 00:00 Dextrose (Dextrose 50% 50ML Syringe) 25-50ML OF 50% DW IV FOR... UD PRN IV 09/03/16 00:00 10/03/16 00:00 Glucagon (Glucagon Inj) 1 mg UD PRN SQ 09/03/16 00:00 10/03/16 00:00 Miscellaneous Information (Consult Glycemic Management Pharmacy) 1 ea UD PRN N/A 09/03/16 01:30 10/03/16 01:29 Ipratropium [place] (Atrovent 0.02% 0.5MG/2.5ML Neb) 0.5 mg Q4R INH 09/03/16 04:00 10/03/16 03:59 09/09/16 23:00 0.5 MG Levalbuterol (Xopenex 1.25MG/ 0.5ML Neb) 1.25 mg Q4R INH 09/03/16 04:00 10/03/16 03:59 09/09/16 23:00 1.25 MG Budesonide/ Formoterol Fumarate (Symbicort 80/ 4.5 Inh) 2 puffs BID INH 09/03/16 21:00 10/03/16 20:59 09/09/16 21:36 2 PUFFS Metoprolol Tartrate (Lopressor Iv) 2.5 mg Q6 PRN IV 09/04/16 14:45 10/04/16 14:44 Prednisone (PredniSONE TAB) 20 mg DAILY PO 09/06/16 09:00 10/06/16 08:59 09/09/16 07:59 20 MG Furosemide (Lasix Tab) 40 mg BID17 PO 09/08/16 09:00 10/08/16 08:59 09/09/16 17:20 40 MG Lactulose (Kristalose Powder Packet) 10 gm BID PO 09/08/16 09:00 10/08/16 08:59 09/09/16 21:36 10 GM Insulin Aspart (novoLOG ASPART) SLIDING SCALE If C... TID@0700,1100,2100 DC 09/08/16 11:00 10/08/16 10:59 09/09/16 21:39 5 UNITS Insulin Aspart (novoLOG ASPART) SLIDING SCALE If C... DAILY@1615 DC 09/08/16 16:15 10/08/16 16:14 09/09/16 17:25 25 UNITS Insulin Glargine (Lantus Solostar Pen) 45 unit BID SC 09/08/16 21:00 10/08/16 20:59 09/09/16 21:39 45 UNIT
[2016-09-10] VITALS (9 sets, daily range): BP systolic 125–174; BP diastolic 61–78; PULSE 68–103; TEMP 36.4–37; O2SAT 96–100
[2016-09-10] MEDS ORDERED: ALBUTEROL HFA 8 GM INHALER INH PRN (01:45)
[2016-09-10] MEDS ORDERED: LEVALBUTEROL 0.63MG/3 ML NEB INH PRN (01:45)
[2016-09-10 06:10] LABS: HEMATOCRIT 29.2 % (37-47)
[2016-09-10] MEDS: LEVOTHYROXINE 112 MCG TAB PO SCH (06:14)
[2016-09-10 06:35] LABS: BUN/CREATININE RATIO 33.9 (10-20); CALCIUM 8.9 mg/dl (8.5-10.1); CREATININE 1.5 mg/dl (0.60-1.20)
[2016-09-10] MEDS: SPIRONOLACTONE 100 MG TAB PO SCH (07:48)
[2016-09-10] MEDS: FUROSEMIDE 40 MG TAB PO SCH ×2 (07:48→17:26)
[2016-09-10] MEDS: DOCUSATE SODIUM 100 MG CAP PO SCH ×2 (07:48→19:53)
[2016-09-10] MEDS: RIFAXIMIN TAB 550 MG TAB PO SCH ×2 (07:48→19:56)
[2016-09-10] MEDS: PANTOprazole SOD 40 MG TAB PO SCH ×2 (07:49→19:54)
[2016-09-10] MEDS: POLYETHYLENE (MIRALAX) 17 GM PACK PO SCH (07:49)
[2016-09-10] MEDS: TRIAMCINOLONE ACET 0.1% CR 15 GM TUBE EXT SCH (07:49)
[2016-09-10] MEDS: BUDESONIDE/FORMOTEROL FUMARATE 80/4.5 60 PUFFS/INHALER INH SCH ×2 (07:49→19:46)
[2016-09-10] MEDS: NADOLOL 40 MG TAB PO SCH (07:50)
[2016-09-10] MEDS: VENLAFAXINE HCL 50 MG TAB PO SCH (07:50)
[2016-09-10] MEDS: LACTULOSE PO SCH ×2 (07:51→19:47)
[2016-09-10] MEDS: INSULIN ASPART 100 UNITS/ML 3 ML PEN SC SCH ×4 (07:59→20:45)
[2016-09-10] MEDS: INSULIN GLARGINE SOLOSTAR 100 UNITS/ML 3 ML PEN SC SCH ×2 (08:38→20:46)
[2016-09-10] MEDS: FERROUS SULFATE 325 MG TAB PO SCH (11:46)
--- NOTE | 2016-09-10 12:05 | Pharmacy Progress Note ---
Glycemic Control: Progress Nt Date of Service Sep 10, 2016. Scope Glycemic Pharmacist consulted by Dr Butler on 09/03/16 for glycemic control and to write orders per [facility] inpatient glycemic control protocol. Objective Accuchecks BSG (last 24hrs): Test 09/09/16 16:30 09/09/16 20:12 09/10/16 05:36 09/10/16 07:01 Bedside Glucose 215 mg/dl (70-90) 189 mg/dl (70-90) 167 mg/dl (70-90) Random Glucose 158 mg/dl (70-99) Test 09/10/16 11:16 Bedside Glucose 146 mg/dl (70-90) Laboratory Data (last 24hrs) Test 09/10/16 05:36 Anion Gap 4.0 mmol/L BUN/Creatinine Ratio 33.9 Blood Urea Nitrogen 51 mg/dl Creatinine 1.50 mg/dl Potassium Level 5.0 mmol/L Sodium Level 139 mmol/L Recent Pertinent Medications Outpatient Anti-diabetic Regimen: * Lantus 45 units SQ BID * NovoLog /- Risk Factors for Insulin Resistance: * Steroids * Infection Assessment & Plan ASSESSMENT: * Fasting BSG 167 mg/dL * Steroids tapered from Prednisone 20 mg to 10 mg daily today * Pt still had 3 BSGs >180 mg/dL over the past 24 hours so my plan will be to continue current regimen despite slight decrease in hopes that current orders will keep patient within goal range * Lunch BSG 148 mg/dL so patient is trending very well today * I still am cautious about continuing full home dose as patient is known to drop unexpectedly per previous admission data when maintained on her home dose; however, I tried to prevent this by holding a dose of Lantus a few days ago and this only caused sustained hyperglycemia * Continue current orders and make change when necessary * ADA & AACE recommend a goal blood sugar range 140-180 mg/dl for the majority of critically ill & non-critically ill patients. However, more stringent targets may be selected in individual cases. PLAN FOR INPATIENT GLYCEMIC CONTROL: * Basal insulin with LANTUS 45 units SQ BID * Correctional Insulin with NOVOLOG per scale ACHS or Q6hrs while NPO * Goal Range: Low 110 mg/dL - High 140 mg/dL * Correction Factor: 12 mg/dL/unit, 10 mg/dL at dinner only * Nutritional / Prandial insulin per carb ratio of 1 unit per 4 grams CHO consumed, carb ratio of 3 for dinner only RECOMMENDATIONS FOR DISCHARGE: * Good outpatient control evidenced by A1c of 6.8% (07/15/16) * Recommend resuming outpatient regimen on discharge * Lantus 45 units SQ BID * NovoLog /20-30 * Please note that the plan above was derived based on current level of insulin resistance and hospital stress. These recommendations are appropriate for inpatient admission only. Plan of care upon discharge will need to be reassessed to avoid potential outpatient hypo/hyperglycemia. Thank you.
--- NOTE | 2016-09-10 19:03 | Progress Note ---
Medicine Progress Note Date & Time of Visit: Sep 10, 2016 at 11:20 . Subjective visiting. Had a good night. No fever. Cough and dyspnea improved. No chest pain. No nausea or vomiting. Soft BM after taking Kristalose. . Objective Last 8 Hrs Date Time Temp Pulse Resp B/P (MAP) Pulse Ox O2 Delivery O2 Flow Rate FiO2 09/10/16 15:52 37.0 70 18 125/67 (86) 100 Nasal Cannula 2.0 09/10/16 15:19 36.4 79 18 99 3.0 09/10/16 12:02 36.4 79 18 135/69 (91) 99 Nasal Cannula 3.0 09/10/16 12:00 96 Nasal Cannula 2.0 Physical Exam: General- sitting in chair, no distress Eyes- anicteric Neck- + JVD Lungs- clear Heart- RRR with occasional ectopy Abdomen- normal bowel sounds, soft, nontender Extremities- 2+ pretibial edema; chronic venous stasis changes; no calf tenderness Neuro- alert, oriented . Laboratory Results: Last 24 Hours Test 09/09/16 20:12 09/10/16 05:36 09/10/16 07:01 09/10/16 11:16 Bedside Glucose 189 mg/dl 167 mg/dl 146 mg/dl Hemoglobin 8.4 g/dL Hematocrit 29.2 % Sodium Level 139 mmol/L Potassium Level 5.0 mmol/L Chloride Level 100 mmol/L Carbon Dioxide Level 35 mmol/L Anion Gap 4.0 mmol/L Blood Urea Nitrogen 51 mg/dl Creatinine 1.50 mg/dl Est Creatinine Clear Calc Drug Dose 38.5 ml/min Estimated GFR () 39.6 Estimated GFR (Non- 34.2 BUN/Creatinine Ratio 33.9 Random Glucose 158 mg/dl Calcium Level 8.9 mg/dl Test 09/10/16 16:53 Bedside Glucose 119 mg/dl Assessment & Plan ACUTE ON CHRONIC HYPOXIC + HYPERCAPNIC RESPIRATORY FAILURE Presented with increasing shortness of breath. Underlying COPD, pleural effusions, sleep apnea, pulmonary edema as discussed separately below. Pulmonary Medicine consulted. BiPAP or Trilogy at home recommended- patient declines. Titrate supplemental O2. COPD Continue supplemental oxygen, bronchodilators, steroids. Taper steroids. PLEURAL EFFUSIONS Recent thoracentesis demonstrated chylous pleural effusions. Underlying pulmonary edema. Pulmonary Medicine consulted. No need for repeat thoracentesis at this time. SUSPECTED SLEEP APNEA BiPAP or Trilogy at home recommended- patient declines. CORONARY ARTERY DISEASE No anginal symptoms. Taking aspirin and metoprolol. Switched beta moises from metoprolol to nadolol light of cirrhosis with portal hypertension. PULMONARY EDEMA Chest x-ray on admission demonstrated cardiomegaly with pulmonary edema. Echocardiogram 05/30/16 demonstrated LVEF of 70%, mild concentric LVH. May have acute on chronic left ventricular diastolic heart failure. Creatinine jarad with more aggressive diuresis. Furosemide held due to worsening renal function, then restarted Chest x-ray 09/09 demonstrated slight improvement in pulmonary edema and bilateral pleural effusions. Continue diuretics. Serum potassium 5.0- watch carefully on spironolactone therapy. ALTERED MENTAL STATUS Presented with altered mental status. Head CT did not show any acute findings. Probable metabolic encephalopathy secondary to underlying pulmonary issues. Serum ammonia elevated; probably also had a component of hepatic encephalopathy. Improved. CIRRHOSIS OF LIVER Due to nonalcoholic fatty liver disease. Continue diuretics and rifaximin. Patient intolerant of lactulose syrup due to taste. Switched to powdered lactulose (Kristalose). She prefers Kristalose over lactulose syrup. Continue Kristalose to 20 mg BID. Further management per GI. CKD STAGE III Serum creatinine on admission 1.3. Creatinine jarad as high as 2.0 with more aggressive diuresis. Furosemide held. Creatinine today = 1.5. Follow. DIABETES MELLITUS TYPE 2 Fairly well controlled at home. Recent hemoglobin A1c 6.8 on 07/15/16. Pharmacy consulted to assist with glycemic management. Fasting blood sugar today = 167. Taper steroids. ANEMIA Hemoglobin at time of last admission on 08/25/16 was 5.7. History of portal hypertension secondary to cirrhosis. History of cecal AVMs. Recent EGD on 07/17/16 demonstrated esophageal varices. Recent colonoscopy unremarkable. Received 3 units of packed RBCs during recent hospital stay. Hemoglobin today stable @ 8.4. Transfuse to maintain adequate H/H. Reasonable hemoglobin goal > 8 unless symptomatic. Started iron supplementation. Follow. VTE PROPHYLAXIS No anticoagulants because of chronic GI blood loss. SCD's. Ambulate. DISPOSITION May benefit from skilled care. Case Management consulted. Family Medicine follow-up with Dr. Yann Gutierrez. . Consultants: Pulmonary Medicine . Procedures: Cardiac monitoring Intravenous medications BiPAP CT head Venous duplex lower extremities . Current Inpatient Medications: Current Inpatient Medications Medications (Trade) Dose Ordered Sig/Virgil Route Start Time Stop Time Status Last Admin Dose Admin Aspirin (Ecotrin Tab) 81 mg MoWeFr@0900 PO 09/04/16 09:00 10/04/16 08:59 09/08/16 07:49 81 MG Atorvastatin Calcium (Lipitor Tab) 80 mg QPM PO 09/03/16 21:00 10/03/16 20:59 09/09/16 21:35 80 MG Docusate Sodium (coLACE CAP) 100 mg BID PO 09/03/16 09:00 10/03/16 08:59 09/10/16 07:48 100 MG Latanoprost (Xalatan Oph Soln) 1 drops HS OPB 09/03/16 21:00 10/03/16 20:59 09/09/16 21:36 1 DROPS Levothyroxine Sodium (Synthroid Tab) 112 mcg DAILYBB PO 09/03/16 06:00 10/03/16 05:59 09/10/16 06:14 112 MCG Pantoprazole Sodium (Protonix Tab) 40 mg BID PO 09/03/16 09:00 10/03/16 08:59 09/10/16 07:49 40 MG Rifaximin (Xifaxan Tab) 550 mg BID PO 09/03/16 09:00 10/03/16 08:59 09/10/16 07:48 550 MG Spironolactone (Aldactone Tab) 100 mg QAM PO 09/03/16 09:00 10/03/16 08:59 09/10/16 07:48 100 MG Triamcinolone Acetonide (Kenalog 0.1% Cream) 1 appln DAILY EXT 09/03/16 09:00 10/03/16 08:59 09/10/16 07:49 1 APPLN Venlafaxine HCl (effeXOR TAB) 100 mg DAILY PO 09/03/16 09:00 10/03/16 08:59 09/10/16 07:50 100 MG Polyethylene (Miralax Powder Packet) 17 gm DAILY PO 09/03/16 09:00 10/03/16 08:59 09/10/16 07:49 17 GM Acetaminophen (Tylenol Tab) 650 mg Q4H PRN PO 09/02/16 23:45 10/02/16 23:44 Glucose (Glucose 40% Gel) 15-30 GRAMS 15 GRAMS... UD PRN PO 09/03/16 00:00 10/03/16 00:00 Glucose (Glucose Chew Tab) 4-8 Tablets 4 Tabl... UD PRN PO 09/03/16 00:00 10/03/16 00:00 Dextrose (Dextrose 50% 50ML Syringe) 25-50ML OF 50% DW IV FOR... UD PRN IV 09/03/16 00:00 10/03/16 00:00 Glucagon (Glucagon Inj) 1 mg UD PRN SQ 09/03/16 00:00 10/03/16 00:00 Miscellaneous Information (Consult Glycemic Management Pharmacy) 1 ea UD PRN N/A 09/03/16 01:30 10/03/16 01:29 Budesonide/ Formoterol Fumarate (Symbicort 80/ 4.5 Inh) 2 puffs BID INH 09/03/16 21:00 10/03/16 20:59 09/10/16 07:49 2 PUFFS Metoprolol Tartrate (Lopressor Iv) 2.5 mg Q6 PRN IV 09/04/16 14:45 10/04/16 14:44 09/10/16 03:51 2.5 MG Furosemide (Lasix Tab) 40 mg BID17 PO 09/08/16 09:00 10/08/16 08:59 09/10/16 17:26 40 MG Insulin Aspart (novoLOG ASPART) SLIDING SCALE If C... TID@0700,1100,2100 NM 09/08/16 11:00 10/08/16 10:59 09/10/16 11:48 12 UNITS Insulin Aspart (novoLOG ASPART) SLIDING SCALE If C... DAILY@1615 NM 09/08/16 16:15 10/08/16 16:14 09/10/16 18:35 13 UNITS Insulin Glargine (Lantus Solostar Pen) 45 unit BID SC 09/08/16 21:00 10/08/16 20:59 09/10/16 08:38 45 UNIT Lactulose (Kristalose Powder Packet) 20 gm BID PO 09/10/16 09:00 10/08/16 08:59 09/10/16 07:51 20 GM Nadolol (Corgard Tab) 40 mg QAM PO 09/10/16 09:00 10/10/16 08:59 09/10/16 07:50 40 MG Ferrous Sulfate (Feosol Tab) 325 mg DAILY@1200 PO 09/10/16 12:00 10/10/16 11:59 09/10/16 11:46 325 MG Levalbuterol (Xopenex 0.63 Mg/ 3 Ml Neb) 0.63 mg Q4H PRN INH 09/10/16 01:45 10/10/16 01:44 Albuterol (Ventolin Hfa Inhaler) 2 puffs Q4H PRN INH 09/10/16 01:45 10/10/16 01:44 Prednisone (PredniSONE TAB) 10 mg DAILY PO 09/10/16 09:00 10/10/16 08:59 09/10/16 07:48 10 MG
[2016-09-10] MEDS: LATANOPROST 0.005% OP SOLN 2.5 ML BTL OPB SCH (20:41)
[2016-09-10] MEDS: ATORVASTATIN 40 MG TAB PO SCH (20:42)
[2016-09-11] MEDS: LEVOTHYROXINE 112 MCG TAB PO SCH (05:23)
[2016-09-11 05:46] LABS: HEMATOCRIT 28.9 % (37-47)
[2016-09-11 06:18] LABS: BUN/CREATININE RATIO 35.9 (10-20); CALCIUM 8.4 mg/dl (8.5-10.1); CREATININE 1.6 mg/dl (0.60-1.20); POTASSIUM 4.6 mmol/L (3.5-5.1)
[2016-09-11 07:33] VITALS: BP 135/57; PULSE 71; TEMP 36.6; O2SAT 98
[2016-09-11] MEDS: SPIRONOLACTONE 100 MG TAB PO SCH (09:26)
[2016-09-11] MEDS: RIFAXIMIN TAB 550 MG TAB PO SCH ×2 (09:27→19:31)
[2016-09-11] MEDS: TRIAMCINOLONE ACET 0.1% CR 15 GM TUBE EXT SCH (09:27)
[2016-09-11] MEDS: FUROSEMIDE 40 MG TAB PO SCH ×2 (09:28→17:22)
[2016-09-11] MEDS: NADOLOL 40 MG TAB PO SCH (09:28)
[2016-09-11] MEDS: DOCUSATE SODIUM 100 MG CAP PO SCH ×2 (09:29→19:31)
[2016-09-11] MEDS: VENLAFAXINE HCL 50 MG TAB PO SCH (09:29)
[2016-09-11] MEDS: PANTOprazole SOD 40 MG TAB PO SCH ×2 (09:29→19:31)
[2016-09-11] MEDS: ASPIRIN 81 MG ECTAB PO SCH (09:30)
[2016-09-11] MEDS: POLYETHYLENE (MIRALAX) 17 GM PACK PO SCH (09:30)
[2016-09-11] MEDS: BUDESONIDE/FORMOTEROL FUMARATE 80/4.5 60 PUFFS/INHALER INH SCH ×2 (09:30→19:31)
[2016-09-11] MEDS: INSULIN GLARGINE SOLOSTAR 100 UNITS/ML 3 ML PEN SC SCH ×2 (09:40→21:19)
[2016-09-11] MEDS: INSULIN ASPART 100 UNITS/ML 3 ML PEN SC SCH ×4 (09:43→21:18)
[2016-09-11] MEDS: LACTULOSE PO SCH ×2 (09:47→19:31)
[2016-09-11] MEDS: FERROUS SULFATE 325 MG TAB PO SCH (12:37)
--- NOTE | 2016-09-11 12:38 | Pharmacy Progress Note ---
Glycemic Control: Progress Nt Date of Service Sep 11, 2016. Scope Glycemic Pharmacist consulted for glycemic control and to write orders per [facility] inpatient glycemic control protocol. Objective Accuchecks BSG (last 24hrs): Test 09/10/16 16:53 09/10/16 19:59 09/11/16 05:21 09/11/16 07:52 Bedside Glucose 119 mg/dl (70-90) 187 mg/dl (70-90) 140 mg/dl (70-90) Random Glucose 158 mg/dl (70-99) Test 09/11/16 11:47 Bedside Glucose 208 mg/dl (70-90) Laboratory Data (last 24hrs) Recent Pertinent Medications Outpatient Anti-diabetic Regimen: * Lantus 45 units SQ BID * NovoLog /- The patient is currently receiving: * Basal insulin: Lantus 45 units every 12 hours * Correctional Insulin: Novolog Correction per scale ACHS Goal Range: Low 110 mg/dL - High 140 mg/dL * Breakfast, Lunch, and HS: correction Factor = 12 mg/dL/unit & CR = Per carb ratio of 1 unit per 4 grams CHO consumed * Dinner: correction Factor = 10 mg/dL/unit & CR = Per carb ratio of 1 unit per 3 grams CHO consumed Risk Factors for Insulin Resistance: * Steroids --> prednisone tapering * Infection Assessment & Plan ASSESSMENT: Initial: * 75yo T2DM female known to pharmacy from previous admissions/glycemic consults. * Pt takes large doses of insulin as an outpatient but usually requires about half of outpatient dosing while admitted * Typically 45 -185 units/day depending on PO intake and steroid dosing * Degree of outpatient control is presumed adequate per recent A1c but reliability of A1c result is questionable as it was drawn after transfusions 09/11/16: * Pt received 132 units of insulin on 09/10 with near adequate glycemic control * 90 units basal {as Lantus 45 units BID} * 42 units of prandial/correctional insulin * BSGs ranging 119 - 208mg/dl over the past 24hrs * Changes needed to insulin regimen * AM Fasting BSG = 140mg/dl which is above goal range. However, AM fasting BSG is trending downwards {253 --> 205 --> 167 --> 140mg/dl} without dose increase of Lantus. Will continue current dosing and reassess need for increase tomorrow. * Post-prandial BSGs are elevated/BSGs rise throughout the day therefore Tighten CF/CR PLAN FOR INPATIENT GLYCEMIC CONTROL: * Basal insulin: no change at this time * Lantus 45 units SQ BID {outpatient dose is 45 units BID} * Bolus insulin: tighten CF & CR * NovoLog per scale ACHS or Q6hrs while NPO * Goal Range: Low 110 mg/dL - High 140 mg/dL * Correction Factor: 10mg/dL/unit {was 12} * Nutritional / Prandial insulin per carb ratio of 1 unit per 3 grams CHO consumed {was 4} * Please note that the plan above was derived based on current level of insulin resistance and hospital stress. These recommendations are appropriate for inpatient admission only. Plan of care upon discharge will need to be reassessed to avoid potential outpatient hypo/hyperglycemia. Thank you.
[2016-09-11 15:33] VITALS: BP 147/71; PULSE 65; TEMP 36.8; O2SAT 97
[2016-09-11] MEDS: ATORVASTATIN 40 MG TAB PO SCH (21:04)
[2016-09-11] MEDS: LATANOPROST 0.005% OP SOLN 2.5 ML BTL OPB SCH (21:20)
--- NOTE | 2016-09-11 21:23 | Progress Note ---
Medicine Progress Note Date & Time of Visit: Sep 11, 2016 at 15:50 . Subjective No new problems. No fever or chills. Cough and dyspnea improved. No chest pain. No nausea or vomiting. Loose stools on lactulose. Tremor improved. . Objective Last 8 Hrs Date Time Temp Pulse Resp B/P (MAP) Pulse Ox O2 Delivery O2 Flow Rate FiO2 09/11/16 15:33 36.8 65 18 147/71 (96) 97 Nasal Cannula 2.0 09/11/16 15:20 Nasal Cannula 2.0 Physical Exam: General- lying in bed, no distress Eyes- anicteric Neck- + JVD Lungs- few bibasilar rales Heart- RRR Abdomen- normal bowel sounds, soft, nontender Extremities- 2+ pretibial edema; chronic venous stasis changes; no calf tenderness Neuro- alert, oriented; asterixis improved . Laboratory Results: Last 24 Hours Test 09/11/16 05:21 09/11/16 07:52 09/11/16 11:47 09/11/16 16:44 Hemoglobin 8.6 g/dL Hematocrit 28.9 % Sodium Level 139 mmol/L Potassium Level 4.6 mmol/L Chloride Level 100 mmol/L Carbon Dioxide Level 33 mmol/L Anion Gap 6.0 mmol/L Blood Urea Nitrogen 57 mg/dl Creatinine 1.60 mg/dl Est Creatinine Clear Calc Drug Dose 35.8 ml/min Estimated GFR () 36.7 Estimated GFR (Non- 31.6 BUN/Creatinine Ratio 35.9 Random Glucose 158 mg/dl Calcium Level 8.4 mg/dl Bedside Glucose 140 mg/dl 208 mg/dl 264 mg/dl Test 09/11/16 20:25 Bedside Glucose 252 mg/dl Assessment & Plan ACUTE ON CHRONIC HYPOXIC + HYPERCAPNIC RESPIRATORY FAILURE Presented with increasing shortness of breath. Underlying COPD, pleural effusions, sleep apnea, pulmonary edema as discussed separately below. Pulmonary Medicine consulted. BiPAP or Trilogy at home recommended- patient declines. Titrate supplemental O2. COPD Continue supplemental oxygen, bronchodilators, steroids. Taper steroids. PLEURAL EFFUSIONS Recent thoracentesis demonstrated chylous pleural effusions. Underlying pulmonary edema. Pulmonary Medicine consulted. No need for repeat thoracentesis at this time. SUSPECTED SLEEP APNEA BiPAP or Trilogy at home recommended- patient declines. CORONARY ARTERY DISEASE No anginal symptoms. Continue aspirin. Switched beta moises from metoprolol to nadolol light of cirrhosis with portal hypertension. PULMONARY EDEMA Chest x-ray on admission demonstrated cardiomegaly with pulmonary edema. Echocardiogram 05/30/16 demonstrated LVEF of 70%, mild concentric LVH. May have acute on chronic left ventricular diastolic heart failure. Creatinine jarad with more aggressive diuresis. Furosemide held due to worsening renal function, then restarted Chest x-ray 09/09 demonstrated slight improvement in pulmonary edema and bilateral pleural effusions. Continue diuretics. Serum potassium 5.0- watch carefully on spironolactone therapy. ALTERED MENTAL STATUS Presented with altered mental status. Head CT did not show any acute findings. Probable metabolic encephalopathy secondary to underlying pulmonary issues. Serum ammonia elevated; probably also had a component of hepatic encephalopathy. Improved. CIRRHOSIS OF LIVER Due to nonalcoholic fatty liver disease. Continue diuretics and rifaximin. Patient intolerant of lactulose syrup due to taste. Switched to powdered lactulose (Kristalose). She prefers Kristalose over lactulose syrup. Continue Kristalose to 20 mg BID. Further management per GI. CKD STAGE III Serum creatinine on admission 1.3. Creatinine jarad as high as 2.0 with more aggressive diuresis. Furosemide held. Creatinine today = 1.6. Follow. DIABETES MELLITUS TYPE 2 Fairly well controlled at home. Recent hemoglobin A1c 6.8 on 07/15/16. Pharmacy consulted to assist with glycemic management. Fasting blood sugar today = 140. Taper steroids. ANEMIA Hemoglobin at time of last admission on 08/25/16 was 5.7. History of portal hypertension secondary to cirrhosis. History of cecal AVMs. Recent EGD on 07/17/16 demonstrated esophageal varices. Recent colonoscopy unremarkable. Received 3 units of packed RBCs during recent hospital stay. Hemoglobin today stable @ 8.6. Transfuse to maintain adequate H/H. Reasonable hemoglobin goal > 8 unless symptomatic. Started iron supplementation. Follow. VTE PROPHYLAXIS No anticoagulants because of chronic GI blood loss. SCD's. Ambulate. DISPOSITION May benefit from skilled care. Case Management consulted. Family Medicine follow-up with Dr. Yann Gutierrez. . Consultants: Pulmonary Medicine . Procedures: Cardiac monitoring Intravenous medications BiPAP CT head Venous duplex lower extremities . Current Inpatient Medications: Current Inpatient Medications Medications (Trade) Dose Ordered Sig/Virgil Route Start Time Stop Time Status Last Admin Dose Admin Aspirin (Ecotrin Tab) 81 mg MoWeFr@0900 PO 09/04/16 09:00 10/04/16 08:59 09/11/16 09:30 81 MG Atorvastatin Calcium (Lipitor Tab) 80 mg QPM PO 09/03/16 21:00 10/03/16 20:59 09/11/16 21:04 80 MG Docusate Sodium (coLACE CAP) 100 mg BID PO 09/03/16 09:00 10/03/16 08:59 09/11/16 19:31 100 MG Latanoprost (Xalatan Oph Soln) 1 drops HS OPB 09/03/16 21:00 10/03/16 20:59 09/11/16 21:20 1 DROPS Levothyroxine Sodium (Synthroid Tab) 112 mcg DAILYBB PO 09/03/16 06:00 10/03/16 05:59 09/11/16 05:23 112 MCG Pantoprazole Sodium (Protonix Tab) 40 mg BID PO 09/03/16 09:00 10/03/16 08:59 09/11/16 19:31 40 MG Rifaximin (Xifaxan Tab) 550 mg BID PO 09/03/16 09:00 10/03/16 08:59 09/11/16 19:31 550 MG Spironolactone (Aldactone Tab) 100 mg QAM PO 09/03/16 09:00 10/03/16 08:59 09/11/16 09:26 100 MG Triamcinolone Acetonide (Kenalog 0.1% Cream) 1 appln DAILY EXT 09/03/16 09:00 10/03/16 08:59 09/11/16 09:27 1 APPLN Venlafaxine HCl (effeXOR TAB) 100 mg DAILY PO 09/03/16 09:00 10/03/16 08:59 09/11/16 09:29 100 MG Polyethylene (Miralax Powder Packet) 17 gm DAILY PO 09/03/16 09:00 10/03/16 08:59 09/11/16 09:30 17 GM Acetaminophen (Tylenol Tab) 650 mg Q4H PRN PO 09/02/16 23:45 10/02/16 23:44 Glucose (Glucose 40% Gel) 15-30 GRAMS 15 GRAMS... UD PRN PO 09/03/16 00:00 10/03/16 00:00 Glucose (Glucose Chew Tab) 4-8 Tablets 4 Tabl... UD PRN PO 09/03/16 00:00 10/03/16 00:00 Dextrose (Dextrose 50% 50ML Syringe) 25-50ML OF 50% DW IV FOR... UD PRN IV 09/03/16 00:00 10/03/16 00:00 Glucagon (Glucagon Inj) 1 mg UD PRN SQ 09/03/16 00:00 10/03/16 00:00 Miscellaneous Information (Consult Glycemic Management Pharmacy) 1 ea UD PRN N/A 09/03/16 01:30 10/03/16 01:29 Budesonide/ Formoterol Fumarate (Symbicort 80/ 4.5 Inh) 2 puffs BID INH 09/03/16 21:00 10/03/16 20:59 09/11/16 19:31 2 PUFFS Metoprolol Tartrate (Lopressor Iv) 2.5 mg Q6 PRN IV 09/04/16 14:45 10/04/16 14:44 09/10/16 03:51 2.5 MG Furosemide (Lasix Tab) 40 mg BID17 PO 09/08/16 09:00 10/08/16 08:59 09/11/16 17:22 40 MG Insulin Glargine (Lantus Solostar Pen) 45 unit BID SC 09/08/16 21:00 10/08/16 20:59 09/11/16 21:19 45 UNIT Lactulose (Kristalose Powder Packet) 20 gm BID PO 09/10/16 09:00 10/08/16 08:59 09/11/16 09:47 20 GM Nadolol (Corgard Tab) 40 mg QAM PO 09/10/16 09:00 10/10/16 08:59 09/11/16 09:28 40 MG Ferrous Sulfate (Feosol Tab) 325 mg DAILY@1200 PO 09/10/16 12:00 10/10/16 11:59 09/11/16 12:37 325 MG Levalbuterol (Xopenex 0.63 Mg/ 3 Ml Neb) 0.63 mg Q4H PRN INH 09/10/16 01:45 10/10/16 01:44 Albuterol (Ventolin Hfa Inhaler) 2 puffs Q4H PRN INH 09/10/16 01:45 10/10/16 01:44 Prednisone (PredniSONE TAB) 10 mg DAILY PO 09/10/16 09:00 10/10/16 08:59 09/11/16 09:26 10 MG Insulin Aspart (novoLOG ASPART) SLIDING SCALE If C... ACHS SC 09/11/16 06:30 10/11/16 06:29 09/11/16 21:18 12 UNITS Insulin Aspart (novoLOG ASPART) SLIDING SCALE If C... ONE ONCE SC 09/12/16 02:00 09/12/16 02:01
[2016-09-12] VITALS (7 sets, daily range): BP systolic 120–133; BP diastolic 50–67; PULSE 61–69; TEMP 36.3–36.7; O2SAT 85–99
[2016-09-12] MEDS ORDERED: INSULIN ASPART 100 UNITS/ML 3 ML PEN SC ONE (02:00)
[2016-09-12 05:59] LABS: HEMATOCRIT 30.1 % (37-47)
[2016-09-12] MEDS: LEVOTHYROXINE 112 MCG TAB PO SCH (06:07)
[2016-09-12 06:33] LABS: BUN/CREATININE RATIO 35.8 (10-20); CALCIUM 8.5 mg/dl (8.5-10.1); CREATININE 1.6 mg/dl (0.60-1.20); POTASSIUM 4.3 mmol/L (3.5-5.1)
[2016-09-12] MEDS ORDERED: INSULIN GLARGINE SOLOSTAR 100 UNITS/ML 3 ML PEN SC SCH (08:00)
[2016-09-12] MEDS: BUDESONIDE/FORMOTEROL FUMARATE 80/4.5 60 PUFFS/INHALER INH SCH (08:53)
[2016-09-12] MEDS: SPIRONOLACTONE 100 MG TAB PO SCH (08:54)
[2016-09-12] MEDS: PANTOprazole SOD 40 MG TAB PO SCH (08:54)
[2016-09-12] MEDS: DOCUSATE SODIUM 100 MG CAP PO SCH (08:54)
[2016-09-12] MEDS: NADOLOL 40 MG TAB PO SCH (08:54)
[2016-09-12] MEDS: FUROSEMIDE 40 MG TAB PO SCH ×2 (08:54→17:56)
[2016-09-12] MEDS: RIFAXIMIN TAB 550 MG TAB PO SCH (08:55)
[2016-09-12] MEDS: VENLAFAXINE HCL 50 MG TAB PO SCH (08:55)
[2016-09-12] MEDS: TRIAMCINOLONE ACET 0.1% CR 15 GM TUBE EXT SCH (08:55)
[2016-09-12] MEDS: POLYETHYLENE (MIRALAX) 17 GM PACK PO SCH (08:56)
[2016-09-12] MEDS: LACTULOSE PO SCH (08:56)
[2016-09-12] MEDS: INSULIN ASPART 100 UNITS/ML 3 ML PEN SC SCH ×3 (09:04→17:59)
--- NOTE | 2016-09-12 12:02 | Pharmacy Progress Note ---
Glycemic Control: Progress Nt Date of Service Sep 12, 2016. Scope Glycemic Pharmacist consulted by on 09/03/16 for glycemic control and to write orders per [facility] inpatient glycemic control protocol. Objective Accuchecks BSG (last 24hrs): Test 09/11/16 11:47 09/11/16 16:44 09/11/16 20:25 09/12/16 01:53 Bedside Glucose 208 mg/dl (70-90) 264 mg/dl (70-90) 252 mg/dl (70-90) 99 mg/dl (70-90) Test 09/12/16 05:45 09/12/16 07:49 09/12/16 11:25 Random Glucose 75 mg/dl (70-99) Bedside Glucose 102 mg/dl (70-90) 123 mg/dl (70-90) Laboratory Data (last 24hrs) Test 09/12/16 05:45 Anion Gap 5.0 mmol/L BUN/Creatinine Ratio 35.8 Blood Urea Nitrogen 57 mg/dl Creatinine 1.60 mg/dl Potassium Level 4.3 mmol/L Sodium Level 140 mmol/L Recent Pertinent Medications Outpatient Anti-diabetic Regimen: * Lantus 45 units BID, Novolog 30/30/20-30 (TDD = ~170 units/day) Risk Factors for Insulin Resistance: * Steroids: Prednisone 10 mg daily * Diet: DM2/Moiz Assessment & Plan ASSESSMENT: * ADA & AACE recommend a goal blood sugar range 140-180 mg/dl for the majority of critically ill & non-critically ill patients. However, more stringent targets may be selected in individual cases. Initial: * 75yo T2DM female known to pharmacy from previous admissions/glycemic consults. * Pt takes large doses of insulin as an outpatient but usually requires about half of outpatient dosing while admitted * Typically 45 -185 units/day depending on PO intake and steroid dosing * Degree of outpatient control is presumed adequate per recent A1c but reliability of A1c result is questionable as it was drawn after transfusions 09/11/16: * Pt received 132 units of insulin on 09/10 with near adequate glycemic control * 90 units basal {as Lantus 45 units BID} * 42 units of prandial/correctional insulin * BSGs ranging 119 - 208mg/dl over the past 24hrs * Changes needed to insulin regimen * AM Fasting BSG = 140mg/dl which is above goal range. However, AM fasting BSG is trending downwards {253 --> 205 --> 167 --> 140mg/dl} without dose increase of Lantus. Will continue current dosing and reassess need for increase tomorrow. * Post-prandial BSGs are elevated/BSGs rise throughout the day therefore Tighten CF/CR 09/12/16: * Basal rate too strong as evidenced by FBS this morning of 75 mg/dl even in setting of missing 10 units of carb coverage yesterday evening (per RN, used incorrect CR with supper) * Will reduce Lantus dose by 12% in an effort to avoid inducing hypoglycemia. * Continue current Novolog CF/CR at this time. PLAN FOR INPATIENT GLYCEMIC CONTROL: * Decrease to Lantus 40 units SQ BID * Novolog ACHS * Continue correction factor 10 mg/dl/unit * Continue carb ratio 1 unit per 3 grams CHO consumed * Continue goal range Low 110 mg/dL - High 140 mg/dL RECOMMENDATIONS FOR DISCHARGE: * Resume outpatient DM regimen upon discharge * Please note that the plan above was derived based on current level of insulin resistance and hospital stress. These recommendations are appropriate for inpatient admission only. Plan of care upon discharge will need to be reassessed to avoid potential outpatient hypo/hyperglycemia. Thank you.
[2016-09-12] MEDS: FERROUS SULFATE 325 MG TAB PO SCH (12:47)
--- NOTE | 2016-09-12 16:16 | Progress Note ---
Medicine Progress Note Date & Time of Visit: Sep 12, 2016 at ~ 11:00 . Subjective Doing well. No fever. No CP, cough, SOB. No nausea, vomiting, diarrhea. Doing well with PT & OT. . Objective Last 8 Hrs Date Time Temp Pulse Resp B/P (MAP) Pulse Ox O2 Delivery O2 Flow Rate FiO2 09/12/16 14:48 36.3 63 20 120/50 (73) 92 Nasal Cannula 2.0 09/12/16 10:56 99 Nasal Cannula 2.0 09/12/16 10:56 85 Room Air 09/12/16 10:20 91 Room Air 09/12/16 10:08 91 09/12/16 08:30 Nasal Cannula 2.0 Physical Exam: General- no distress Eyes- anicteric Neck- + JVD Lungs- clear Heart- RRR Abdomen- normal bowel sounds, soft, nontender Extremities- 1+ pretibial edema; chronic venous stasis changes; no calf tenderness Neuro- alert, oriented . Laboratory Results: Last 24 Hours Test 09/11/16 16:44 09/11/16 20:25 09/12/16 01:53 09/12/16 05:45 Bedside Glucose 264 mg/dl 252 mg/dl 99 mg/dl Hemoglobin 8.9 g/dL Hematocrit 30.1 % Sodium Level 140 mmol/L Potassium Level 4.3 mmol/L Chloride Level 101 mmol/L Carbon Dioxide Level 34 mmol/L Anion Gap 5.0 mmol/L Blood Urea Nitrogen 57 mg/dl Creatinine 1.60 mg/dl Est Creatinine Clear Calc Drug Dose 35.8 ml/min Estimated GFR () 36.7 Estimated GFR (Non- 31.6 BUN/Creatinine Ratio 35.8 Random Glucose 75 mg/dl Calcium Level 8.5 mg/dl Test 09/12/16 07:49 09/12/16 11:25 Bedside Glucose 102 mg/dl 123 mg/dl Assessment & Plan HYPOXIA - ACUTE ON CHRONIC HYPOXIC + HYPERCAPNIC RESP FAILURE Presented with increasing shortness of breath and lethargy. ABG on 4 L : pO2 92, pCO2 65, HCO3 35, pH 7.35. Multifactorial- underlying COPD, pleural effusions, sleep apnea, pulmonary edema as discussed separately below. Pulmonary Medicine consulted. BiPAP or Trilogy at home recommended- patient declines. O2 sat on RA 85% day of discharge. Continue supplemental O2. O2 sats > 90% on 2 LPM. PULMONARY EDEMA Chest x-ray on admission demonstrated cardiomegaly with pulmonary edema. Echocardiogram 05/30/16 demonstrated LVEF of 70%, mild concentric LVH. May have acute on chronic left ventricular diastolic heart failure. Creatinine jarad with more aggressive diuresis. Furosemide held due to worsening renal function, then restarted Chest x-ray 09/09 demonstrated slight improvement in pulmonary edema and bilateral pleural effusions. Continue diuretics. Serum potassium as high as 5.0- watch carefully on spironolactone therapy. K 4.3 day of discharge. Discharge on furosemide 40 mg BID + spironolactone 100 mg daily. CORONARY ARTERY DISEASE No anginal symptoms. Continue aspirin. Switched beta moises from metoprolol to nadolol light of cirrhosis with portal hypertension. COPD EXACERBATION Treated with supplemental oxygen, bronchodilators, steroids. Steroids tapered and discontinued. PLEURAL EFFUSIONS Recent thoracentesis demonstrated chylous pleural effusions. Underlying pulmonary edema. Pulmonary Medicine consulted. No need for repeat thoracentesis at this time. SUSPECTED SLEEP APNEA BiPAP or Trilogy at home recommended- patient declines. ALTERED MENTAL STATUS Presented with altered mental status. Head CT did not show any acute findings. Probable metabolic encephalopathy secondary to underlying pulmonary issues. Serum ammonia elevated; probably also had a component of hepatic encephalopathy. Improved. CIRRHOSIS OF LIVER Due to nonalcoholic fatty liver disease. Continue diuretics and rifaximin. Patient intolerant of lactulose syrup due to taste. Switched to powdered lactulose (Kristalose). She prefers Kristalose over lactulose syrup. Continue Kristalose to 10-20 mg BID. Further management per GI. CKD STAGE III Serum creatinine on admission 1.3. Creatinine jarad as high as 2.0 with more aggressive diuresis. Furosemide held. Creatinine today = 1.6. Follow. DIABETES MELLITUS TYPE 2 Fairly well controlled at home. Recent hemoglobin A1c 6.8 on 07/15/16. Pharmacy consulted to assist with glycemic management. Fasting blood sugar today = 102. Taper steroids. ANEMIA Hemoglobin at time of last admission on 08/25/16 was 5.7. History of portal hypertension secondary to cirrhosis. History of cecal AVMs. Recent EGD on 07/17/16 demonstrated esophageal varices. Recent colonoscopy unremarkable. Received 3 units of packed RBCs during recent hospital stay. Hemoglobin today stable @ 8.9. Transfuse to maintain adequate H/H. Reasonable hemoglobin goal > 8 unless symptomatic. Started iron supplementation. Follow. VTE PROPHYLAXIS No anticoagulants because of chronic GI blood loss. SCD's. Ambulate. DISPOSITION Skilled care considered, but functional status good by time of discharge. Discharge to home with home health services. Family Medicine follow-up with Dr. Yann Gutierrez. GI follow-up with Dr. Trinh. Cardiology follow-up with Eva Singleton PA-C. Nephrology follow-up with Dr. Jeffers. . Consultants: Pulmonary Medicine . Procedures: Cardiac monitoring Intravenous medications BiPAP CT head Venous duplex lower extremities . Current Inpatient Medications: Current Inpatient Medications Medications (Trade) Dose Ordered Sig/Virgil Route Start Time Stop Time Status Last Admin Dose Admin Aspirin (Ecotrin Tab) 81 mg MoWeFr@0900 PO 09/04/16 09:00 10/04/16 08:59 09/11/16 09:30 81 MG Atorvastatin Calcium (Lipitor Tab) 80 mg QPM PO 09/03/16 21:00 10/03/16 20:59 09/11/16 21:04 80 MG Docusate Sodium (coLACE CAP) 100 mg BID PO 09/03/16 09:00 10/03/16 08:59 09/12/16 08:54 100 MG Latanoprost (Xalatan Oph Soln) 1 drops HS OPB 09/03/16 21:00 10/03/16 20:59 09/11/16 21:20 1 DROPS Levothyroxine Sodium (Synthroid Tab) 112 mcg DAILYBB PO 09/03/16 06:00 10/03/16 05:59 09/12/16 06:07 112 MCG Pantoprazole Sodium (Protonix Tab) 40 mg BID PO 09/03/16 09:00 10/03/16 08:59 09/12/16 08:54 40 MG Rifaximin (Xifaxan Tab) 550 mg BID PO 09/03/16 09:00 10/03/16 08:59 09/12/16 08:55 550 MG Spironolactone (Aldactone Tab) 100 mg QAM PO 09/03/16 09:00 10/03/16 08:59 09/12/16 08:54 100 MG Triamcinolone Acetonide (Kenalog 0.1% Cream) 1 appln DAILY EXT 09/03/16 09:00 10/03/16 08:59 09/12/16 08:55 1 APPLN Venlafaxine HCl (effeXOR TAB) 100 mg DAILY PO 09/03/16 09:00 10/03/16 08:59 09/12/16 08:55 100 MG Polyethylene (Miralax Powder Packet) 17 gm DAILY PO 09/03/16 09:00 10/03/16 08:59 09/12/16 08:56 17 GM Acetaminophen (Tylenol Tab) 650 mg Q4H PRN PO 09/02/16 23:45 10/02/16 23:44 Glucose (Glucose 40% Gel) 15-30 GRAMS 15 GRAMS... UD PRN PO 09/03/16 00:00 10/03/16 00:00 Glucose (Glucose Chew Tab) 4-8 Tablets 4 Tabl... UD PRN PO 09/03/16 00:00 10/03/16 00:00 Dextrose (Dextrose 50% 50ML Syringe) 25-50ML OF 50% DW IV FOR... UD PRN IV 09/03/16 00:00 10/03/16 00:00 Glucagon (Glucagon Inj) 1 mg UD PRN SQ 09/03/16 00:00 10/03/16 00:00 Miscellaneous Information (Consult Glycemic Management Pharmacy) 1 ea UD PRN N/A 09/03/16 01:30 10/03/16 01:29 Budesonide/ Formoterol Fumarate (Symbicort 80/ 4.5 Inh) 2 puffs BID INH 09/03/16 21:00 10/03/16 20:59 09/12/16 08:53 2 PUFFS Metoprolol Tartrate (Lopressor Iv) 2.5 mg Q6 PRN IV 09/04/16 14:45 10/04/16 14:44 09/10/16 03:51 2.5 MG Furosemide (Lasix Tab) 40 mg BID17 PO 09/08/16 09:00 10/08/16 08:59 09/12/16 08:54 40 MG Lactulose (Kristalose Powder Packet) 20 gm BID PO 09/10/16 09:00 10/08/16 08:59 09/12/16 08:56 20 GM Nadolol (Corgard Tab) 40 mg QAM PO 09/10/16 09:00 10/10/16 08:59 09/12/16 08:54 40 MG Ferrous Sulfate (Feosol Tab) 325 mg DAILY@1200 PO 09/10/16 12:00 10/10/16 11:59 09/12/16 12:47 325 MG Levalbuterol (Xopenex 0.63 Mg/ 3 Ml Neb) 0.63 mg Q4H PRN INH 09/10/16 01:45 10/10/16 01:44 Albuterol (Ventolin Hfa Inhaler) 2 puffs Q4H PRN INH 09/10/16 01:45 10/10/16 01:44 Prednisone (PredniSONE TAB) 10 mg DAILY PO 09/10/16 09:00 10/10/16 08:59 09/12/16 08:54 10 MG Insulin Aspart (novoLOG ASPART) SLIDING SCALE If C... ACHS SC 09/11/16 06:30 10/11/16 06:29 09/12/16 12:49 5 UNITS Insulin Glargine (Lantus Solostar Pen) 40 unit BID SC 09/12/16 08:00 10/12/16 07:59 09/12/16 09:05 40 UNIT
[2016-09-12] MEDS ORDERED: FRRS300 PO (16:20)
[2016-09-12] MEDS ORDERED: [UNRECOGNIZED DRUG - CODE] PO (16:20)
[2016-09-12] MEDS ORDERED: CRG40 PO (16:20)
--- NOTE | 2016-09-12 16:30 | Discharge Instructions ---
Discharge Instructions Date of Service Sep 12, 2016. Admission Reason for Admission: shortness of breath, lethargy . Discharge Discharge Diagnosis / Problem: shortness of breath, fluid in lungs, wheezing Discharge Goals Goal(s): Improve function, Improve disease control Activity Recommendations Activity Limitations: resume your previous activity (use walker for stability) . Instructions / Follow-Up Instructions / Follow-Up APPOINTMENTS: FAMILY MEDICINE 09/18/2016 10:40 AM Alan Allen III, MD (covering for Dr. Gutierrez) GASTROENTEROLOGY 09/20/2016 3:40 PM Tomas Trinh MD FAMILY MEDICINE 10/05/2016 4:10 PM Yann Gutierrez DO CARDIOLOGY 10/16/2016 2:15 PM Eva Singleton PA-C NEPHROLOGY 11/30/2016 9:40 AM Lenka Jeffers DO INSTRUCTIONS: New medications- lactulose (Kristalose) 1 or 2 packets mixed with 4 ounces water for hepatic encephalopathy twice a day adjust so that you have 2-3 BM's / day nadolol (Corgard) 40 mg daily for heart disease and liver disease replaces metoprolol succinate (Toprol XL) ferrous sulfate (iron) 1 pill daily with lunch for anemia Oxygen 2-3 liters / minute. Seek medical attention if you have: * temperature above 101 * chest pain or trouble breathing * abdominal pain, nausea, vomiting * diarrhea, dark stools or bloody stools * any unanswered questions or concerns Call 911 if symptoms are severe. Call if you have any questions or problems. My cell # is [phone]. You can also reach a [facility] hospitalist on duty at [facility] 24 hours a day by calling [phone]. Please take good care of yourself. Alan Chun . Current Hospital Diet Patient's current hospital diet: Low Sodium Diet (2gm Na), Diabetes Type 2 Diet Discharge Diet Recommended Diet: AHA Diet (Heart Healthy), Diabetes Type 2 Diet Pending Studies Studies pending at discharge: no Laboratory Results Hemoglobin A1c Test 07/15/16 06:37 Range/Units Estimated Average Glucose 148 mg/dl Hemoglobin A1c 6.8 H 4.5-5.6 % Medical Emergencies . Who to Call and When: Medical Emergencies: If at any time you feel your situation is an emergency, please call 911 immediately. . Non-Emergent Contact Non-Emergency issues call your: Primary Care Provider, Hospital Doctor . . "Provider Documentation" section prepared by Alan Chun. . VTE Core Measure Inpt VTE Proph given/why not?: SCD's
--- NOTE | 2016-09-12 16:33 | Discharge Summary ---
Discharge Summary Date of Service Sep 12, 2016. Discharge Summary Admission Date: September 02, 2016 at 23:33 Discharge Date: Sep 12, 2016 Discharge Disposition: Home with services Principal Diagnosis: acute on chronic hypoxic and hypercapnic respiratory failure . Secondary Diagnoses/Problems: Chronic and Resolved Medical Problems: (1) Anemia- chronic GI blood loss (2) Bilateral pleural effusion Status: Chronic (3) Cirrhosis of liver Status: Chronic (4) CKD (chronic kidney disease), stage III Status: Chronic (5) COPD (chronic obstructive pulmonary disease) Status: Resolved (6) Depression Status: Chronic (7) Diabetes mellitus type 2 Status: Chronic (8) Diastolic CHF Status: Chronic (9) Dyslipidemia Status: Chronic (10) GERD (gastroesophageal reflux disease) Status: Chronic (11) GI bleed Status: Resolved (12) History of adenomatous polyp of colon Status: Chronic (13) History of bladder cancer Status: Chronic (14) History of endometrial cancer Status: Chronic (15) Hypercapnia Status: Chronic (16) Hypothyroidism Status: Chronic (17) Iron deficiency anemia Status: Chronic (18) NSTEMI (non-ST elevated myocardial infarction) Permanent Comment: in the setting of acute illness, no EKG or echo findings of ACS Status: resolved (19) Paroxysmal a-fib Status: Chronic (20) Portal hypertension Permanent Comment: esophageal varices Status: Chronic (21) Portal vein thrombosis Status: Chronic Surgical Problems: (1) H/O colonoscopy with polypectomy Permanent Comment: 09/2015- 2 polyps removed with clips placed, diverticulosis, medium sized lipoma in ascending colon, small AVMs in cecum Status: Chronic (2) H/O esophagogastroduodenoscopy Permanent Comment: 04/2015- scarring, grade I varices, duodenal polyps, portal hypertensive gastropathy Status: Chronic (3) Status post excision bladder tumor Permanent Comment: 2011 Status: Chronic (4) Status post hysterectomy Permanent Comment: endometrial carcinoma Status: Chronic . Procedures: Cardiac monitoring Intravenous medications BiPAP CT head Venous duplex lower extremities PT OT . Consultations: Pulmonary Medicine . Pending Studies/Follow-Up: Please monitor CBC and basic metabolic profile in clinic. . Medication Reconciliation New Medications: Ferrous Sulfate (Ferrous Sulfate) 325 Mg Tab 325 MG PO DAILY, #30 TAB 5 Refills Take daily at lunch. No prescription necessary. Lactulose (Kristalose) 20 Gm Pack 10-20 GM PO BID, #60 PKT 5 Refills 1-2 packets mixed with 4 ounces water twice a day. Adjust dose so that you have 2-3 soft BM's daily. Nadolol (Nadolol) 40 Mg Tab 40 MG PO QAM, #30 TAB 5 Refills Continued Medications: Albuterol Sulfate (Proair Respiclick) 108 Mcg/Act Aer 2 PUFFS INH Q4 PRN for SOB/Wheezing Aspirin (Aspirin EC Low Dose) 81 Mg Ectab 81 MG PO 3XWK Atorvastatin (Lipitor) 80 Mg Tab 80 MG PO QPM, TAB Docusate Sodium (Docusate Sodium) 100 Mg Cap 1 CAP PO BID for 7 Days, #14 CAP Furosemide (Lasix) 40 Mg Tab 40 MG PO BID Insulin Aspart (Novolog Flexpen) 100 Units/Ml Inj 30 UNITS SC BIDM BEFORE BREAKFAST AND LUNCH Insulin Aspart (Novolog Flexpen) 100 Units/Ml Inj 20-30 UNITS SC QPM BEFORE SUPPER Insulin Glargine (Lantus) 100 Unit/Ml Inj 45 UNITS SC BID, VIAL Latanoprost (Xalatan 0.005% Oph Cecilia) 0.005 % Cecilia 1 DROPS OPB HS for 90 Days, #7.5 ML 3 Refills Levothyroxine Sodium (Levothyroxine Sodium) 112 Mcg Tab 1 TAB PO QAM for 90 Days, #90 TAB 3 Refills Pantoprazole (Protonix) 40 Mg Tab 40 MG PO BID, #30 TAB Polyethylene Glycol 3350 (Miralax) 1 Pow Pow 17 GM PO DAILY, #255 GM Rifaximin (Xifaxan) 550 Mg Tab 550 MG PO BID, TAB Spironolactone (Aldactone) 100 Mg Tab 100 MG PO QAM, TAB Triamcinolone Acet (Aristocort 0.1%) 90 Appln/30 Gm Cr 1 APPLN TOP DAILY Venlafaxine Hcl (Effexor) 100 Mg Tab 100 MG PO DAILY TAKE WITH FOOD. Discontinued Medications: Metoprolol Succ (Toprol Xl) (Toprol-Xl) 25 Mg Tabcr 25 MG PO BID, #30 TAB Admission Information HPI (per Admitting provider): 75 year old female with history of Chronic respiratory failure secondary to COPD , Cirrhosis secondary to GRAH[place], Atrial Fibrillation off coumadin, DM, CKD, Anemia, presenting with lethargy and shortness of breath. Patient was discharged yesterday after being treated for anemia likely from GI bleed, s/p pRBC transfusion. Patient reports that she was progressively short of breath and weak at home upon discharge. Denies chest pain, headache, fever/chills, does have some productive cough. At the ER, CXR showed bilateral pleural effusion. She was given Lasix 40mg IV one dose and Duoneb. On my exam, patient was sleeping but easily rousable, drowsy. States she is feeling somewhat better,breathing has improved. Denies other symptoms. . Physical Exam (per Admitting): General Appearance: WD/WN, no apparent distress Head: normocephalic, atraumatic Eyes: normal inspection, PERRL, EOMI, sclerae normal ENT: normal ENT inspection, hearing grossly normal, pharynx normal Neck: supple, no adenopathy, thyroid normal, no JVD, trachea midline Respiratory/Chest: chest non-tender, + pertinent finding (decreased breath sounds bilateral bases, no wheezing) Cardiovascular: regular rate, rhythm, no JVD, no murmur, normal peripheral pulses, + pertinent finding (mild lower leg edema, erythema) Abdomen/GI: normal bowel sounds, non tender, soft Back: normal inspection, no CVA tenderness Extremities/Musculoskelatal: + pertinent finding ((+) lower leg edema, mild , erythema, no tenderness) Neurologic/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 ABG on 4 L : pO2 92, pCO2 65, HCO3 35, pH 7.35. Multifactorial- underlying COPD, pleural effusions, sleep apnea, pulmonary edema as discussed separately below. Pulmonary Medicine consulted. BiPAP or Trilogy at home recommended- patient declines. O2 sat on RA 85% day of discharge. Continue supplemental O2. O2 sats > 90% on 2 LPM. PULMONARY EDEMA Chest x-ray on admission demonstrated cardiomegaly with pulmonary edema. Echocardiogram 05/30/16 demonstrated LVEF of 70%, mild concentric LVH. May have acute on chronic left ventricular diastolic heart failure. Creatinine jarad with more aggressive diuresis. Furosemide held due to worsening renal function, then restarted Chest x-ray 09/09 demonstrated slight improvement in pulmonary edema and bilateral pleural effusions. Continue diuretics. Serum potassium as high as 5.0- watch carefully on spironolactone therapy. K 4.3 day of discharge. Discharge on furosemide 40 mg BID + spironolactone 100 mg daily. CORONARY ARTERY DISEASE No anginal symptoms. Continue aspirin. Switched beta moises from metoprolol to nadolol light of cirrhosis with portal hypertension. COPD EXACERBATION Treated with supplemental oxygen, bronchodilators, steroids. Steroids tapered and discontinued. PLEURAL EFFUSIONS Recent thoracentesis demonstrated chylous pleural effusions. Underlying pulmonary edema. Pulmonary Medicine consulted. No need for repeat thoracentesis at this time. SUSPECTED SLEEP APNEA BiPAP or Trilogy at home recommended- patient declines. ALTERED MENTAL STATUS Presented with altered mental status. Head CT did not show any acute findings. Probable metabolic encephalopathy secondary to underlying pulmonary issues. Serum ammonia elevated; probably also had a component of hepatic encephalopathy. Improved. CIRRHOSIS OF LIVER Due to nonalcoholic fatty liver disease. Continue diuretics and rifaximin. Patient intolerant of lactulose syrup due to taste. Switched to powdered lactulose (Kristalose). She prefers Kristalose over lactulose syrup. Continue Kristalose to 10-20 mg BID. Further management per GI. CKD STAGE III Serum creatinine on admission 1.3. Creatinine jarad as high as 2.0 with more aggressive diuresis. Furosemide held. Creatinine today = 1.6. Follow. DIABETES MELLITUS TYPE 2 Fairly well controlled at home. Recent hemoglobin A1c 6.8 on 07/15/16. Pharmacy consulted to assist with glycemic management. Fasting blood sugar today = 102. Taper steroids. ANEMIA Hemoglobin at time of last admission on 08/25/16 was 5.7. History of portal hypertension secondary to cirrhosis. History of cecal AVMs. Recent EGD on 07/17/16 demonstrated esophageal varices. Recent colonoscopy unremarkable. Received 3 units of packed RBCs during recent hospital stay. Hemoglobin today stable @ 8.9. Transfuse to maintain adequate H/H. Reasonable hemoglobin goal > 8 unless symptomatic. Started iron supplementation. Follow. VTE PROPHYLAXIS No anticoagulants because of chronic GI blood loss. SCD's. Ambulate. DISPOSITION Skilled care considered, but functional status good by time of discharge. Discharge to home with home health services. Family Medicine follow-up with Dr. Yann Gutierrez. GI follow-up with Dr. Trinh. Cardiology follow-up with Eva Singleton PA-C. Nephrology follow-up with Dr. Jeffers. . Total time spent on discharge = 40 min. This includes examination of the patient, discharge planning, medication reconciliation, and communication with other providers. . Discharge Instructions [facility] Date of Service Sep 12, 2016. Admission Reason for Admission: shortness of breath, lethargy . Discharge Discharge Diagnosis / Problem: shortness of breath, fluid in lungs, wheezing Discharge Goals Goal(s): Improve function, Improve disease control Activity Recommendations Activity Limitations: resume your previous activity (use walker for stability) . Instructions / Follow-Up Instructions / Follow-Up APPOINTMENTS: FAMILY MEDICINE 09/18/2016 10:40 AM Alan Allen III, MD (covering for Dr. Gutierrez) GASTROENTEROLOGY 09/20/2016 3:40 PM Tomas Trinh MD FAMILY MEDICINE 10/05/2016 4:10 PM Yann Gutierrez DO CARDIOLOGY 10/16/2016 2:15 PM Eva Singleton PA-C NEPHROLOGY 11/30/2016 9:40 AM Lenka Jeffers DO INSTRUCTIONS: New medications- lactulose (Kristalose) 1 or 2 packets mixed with 4 ounces water for hepatic encephalopathy twice a day adjust so that you have 2-3 BM's / day nadolol (Corgard) 40 mg daily for heart disease and liver disease replaces metoprolol succinate (Toprol XL) ferrous sulfate (iron) 1 pill daily with lunch for anemia Oxygen 2-3 liters / minute. Seek medical attention if you have: * temperature above 101 * chest pain or trouble breathing * abdominal pain, nausea, vomiting * diarrhea, dark stools or bloody stools * any unanswered questions or concerns Call 911 if symptoms are severe. Call if you have any questions or problems. My cell # is [phone]. You can also reach a [facility] hospitalist on duty at [facility] 24 hours a day by calling [phone]. Please take good care of yourself. Alan Chun . Current Hospital Diet Patient's current hospital diet: Low Sodium Diet (2gm Na), Diabetes Type 2 Diet Discharge Diet Recommended Diet: AHA Diet (Heart Healthy), Diabetes Type 2 Diet Pending Studies Studies pending at discharge: no Laboratory Results Hemoglobin A1c Test 07/15/16 06:37 Range/Units Estimated Average Glucose 148 mg/dl Hemoglobin A1c 6.8 H 4.5-5.6 % Medical Emergencies . Who to Call and When: Medical Emergencies: If at any time you feel your situation is an emergency, please call 911 immediately. . Non-Emergent Contact Non-Emergency issues call your: Primary Care Provider, Hospital Doctor . . "Provider Documentation" section prepared by Alan Chun. . VTE Core Measure Inpt VTE Proph given/why not?: SCD's . Additional Copies To Tomas Trinh M.D.; Yann Gutierrez D.O.
== END 2016-09-12 18:30 | disposition home or self-care (01) | DRG 190 ==
LOC: CANRESERV → ENRESERVDT → ENRESERVTM → EDBD 19:23 → C.EDA 19:23 → C.2T 23:33 → C.4E 09-10 13:38 → ENRESERV 09-10 14:55
PROVIDERS: ADMIT Internal Medicine; ATTEND Hospitalist
PROC: 5A09359 Assistance with Respiratory Ventilation, Less than 24 Consecutive Hours, Continuous Negative Airway Pressure (ICD-10-PCS; principal; 2016-09-02)
DX: J44.1 Chronic obstructive pulmonary disease with (acute) exacerbation (principal); J18.9 Pneumonia, unspecified organism; J96.22 Acute and chronic respiratory failure with hypercapnia; J90 Pleural effusion, not elsewhere classified; J81.1 Chronic pulmonary edema; E03.9 Hypothyroidism, unspecified; N18.3 Chronic kidney disease, stage 3 (moderate); I12.9 Hypertensive chronic kidney disease with stage 1 through stage 4 chronic kidney disease, or unspecified chronic kidney disease; K21.9 Gastro-esophageal reflux disease without esophagitis; E78.5 Hyperlipidemia, unspecified; E11.9 Type 2 diabetes mellitus without complications; I48.0 Paroxysmal atrial fibrillation; I50.9 Heart failure, unspecified; F32.9 Major depressive disorder, single episode, unspecified; K74.60 Unspecified cirrhosis of liver; K75.81 Nonalcoholic steatohepatitis (NASH); G47.30 Sleep apnea, unspecified; Z98.51 Tubal ligation status; Z90.710 Acquired absence of both cervix and uterus; Z85.51 Personal history of malignant neoplasm of bladder; Z79.4 Long term (current) use of insulin; Z87.891 Personal history of nicotine dependence

== ENCOUNTER 2016-09-25 11:14 | Inpatient (IN) | payer OTHER ==
[~2016-09-25] VITALS: Ht 167.6 cm; Wt 83.7 kg
[~2016-09-25 11:14] MED LIST changes: -CLC100 PO; +CRG40 PO; +DOCU100C31 PO; +FRRS300 PO; -METO25TA3 PO; -MRLP17 PO; +PANT40TA PO; +POLY335019 PO; -PRT40 PO; +SPIR100T PO; -SPRN100 PO; +[UNRECOGNIZED DRUG - CODE] PO
[2016-09-25] MEDS ORDERED: ALBUT/IPRATROP 3MG/0.5MG NEB 3 ML VIAL INH STA (12:15)
[2016-09-25 12:51] LABS: CALCIUM 9.5 mg/dl (8.5-10.1)
[2016-09-25 12:59] LABS: HEMATOCRIT 25.7 % (37-47); MEAN CELL VOLUME 82.4 fL (80-100); MEAN CORPUSCULAR HEMOGLOBIN 23.7 pg (25-34); MEAN CORPUSCULAR HGB CONC 28.8 g/dl (32-36); MEAN PLATELET VOLUME 10.8 fL (7.4-10.4); PLATELET COUNT 322 K/uL (130-400); RED BLOOD COUNT 3.12 M/uL (4.2-5.4); WHITE BLOOD COUNT 11.32 K/uL (4.8-10.8)
[2016-09-25 13:02] LABS: BASO % 0.4 %; BASO ABS # 0.05 K/uL (0-0.2); COMPLETE YES; EOS % 1.6 %; HYPOCHROMIA PRESENT; IG% 0.2 %; LYMPH % 12.3 %; LYMPH ABS # 1.39 K/uL (1.2-3.4); MONO % 14.8 %; NEUT % 70.7 %; POLYCHROMASIA 1+
[2016-09-25 13:05] LABS: ALB/GLOB RATIO 0.6 (0.9-2); ALKALINE PHOSPHATASE 119 U/L (45-117); ALT/SGPT 30 U/L (12-78); AST/SGOT 35 U/L (15-37); BLOOD UREA NITROGEN 52 mg/dl (7-18); BUN/CREATININE RATIO 27.5 (10-20); CARBON DIOXIDE 38 mmol/L (21-32); CHLORIDE 100 mmol/L (98-107); CKMB/CK RATIO 1.7 (0-3.0); GLUCOSE 37 mg/dl (70-99); POTASSIUM 4.5 mmol/L (3.5-5.1); SODIUM 142 mmol/L (136-145)
[2016-09-25] MEDS ORDERED: DEXTROSE 50% 50 ML SYR ONE (13:10)
--- NOTE | 2016-09-25 13:20 | DIAGNOSTIC IMAGING REPORT ---
CHEST ONE VIEW PORTABLE CLINICAL HISTORY: sob dyspnea COMPARISON STUDY: 09/09/2016 FINDINGS: Findings of developing congestive heart failure. Small bilateral pleural effusions. Pulmonary vasculature is prominent. IMPRESSION: Congestive heart failure Electronically signed by: Steve Caicedo M.D. 09/25/2016 1:18 PM Dictated Date/Time: 09/25/2016 1:18 PM
[2016-09-25] MEDS ORDERED: FUROSEMIDE 40 MG/4 ML VIAL IV STA (15:37)
--- NOTE | 2016-09-25 15:45 | EMERGENCY ROOM VISIT NOTE ---
History Report prepared by Lara: Cyrus Oconnor Under the Supervision of: Dr. Rigoberto Shabazz D.O. First contact with patient: 12:13 Chief Complaint: RESPIRATORY DISTRESS Stated Complaint: RESPIRATORY Nursing Triage Summary: increase sob with weakness History of Present Illness The patient is a 75 year old female with a history of COPD and CHF who presents to the Emergency Room with complaints of increased shortness of breath for the past several days. The notes that she has been having increased difficulty breathing relative to baseline. She has also been experiencing generalized weakness and confusion. The patient wears 2-3 liters of oxygen at home. The notes that the patient has a history of nonalcoholic cirrhosis , and she has history of hyperammonemia. The patient does take Lactulose in powdered form as she does not tolerate liquid lactulose. Her hemoglobin was down to 8 five days ago, and she has had multiple transfusions in the past. Source of History: spouse/significant other Onset: several days ago Position: other (respiratory) Quality: other (shortness of breath) Timing: other (increased) Associated Symptoms: + weakness Review of Systems See HPI for pertinent positives & negatives. A total of 10 systems reviewed and were otherwise negative. Past Medical & Surgical Medical Problems: (1) Bilateral pleural effusion (2) Bladder cancer (3) Cirrhosis of liver (4) CKD (chronic kidney disease), stage III (5) COPD (chronic obstructive pulmonary disease) (6) Depression (7) Diabetes mellitus type 2 (8) Diastolic CHF (9) Dyslipidemia (10) GERD (gastroesophageal reflux disease) (11) GI bleed (12) History of adenomatous polyp of colon (13) History of bladder cancer (14) History of endometrial cancer (15) Hypercapnia (16) Hypothyroidism (17) Iron deficiency anemia (18) NSTEMI (non-ST elevated myocardial infarction) (19) Paroxysmal a-fib (20) Pleural effusion (21) Portal hypertension (22) Portal vein thrombosis (23) Symptomatic anemia Surgical Problems: (1) H/O colonoscopy with polypectomy (2) H/O esophagogastroduodenoscopy (3) Status post excision bladder tumor (4) Status post hysterectomy Family History FH: ovarian cancer MOTHER Social History Smoking Status: Never Smoker Alcohol Use: none Marital Status: Housing Status: lives with family Occupation Status: retired Current/Historical Medications Scheduled Aspirin (Aspirin EC Low Dose), 81 MG PO 3XWK Atorvastatin (Lipitor), 80 MG PO QPM Docusate Sodium (Docusate Sodium), 1 CAP PO BID Ferrous Sulfate (Ferrous Sulfate), 325 MG PO DAILY Furosemide (Lasix), 40 MG PO BID Insulin Aspart (Novolog Flexpen), 30 UNITS SC BIDM Insulin Aspart (Novolog Flexpen), 20-30 UNITS SC QPM Insulin Glargine (Lantus), 45 UNITS SC BID Lactulose (Kristalose), 10-20 GM PO BID Latanoprost (Xalatan 0.005% Oph Cecilia), 1 DROPS OPB HS Levothyroxine Sodium (Levothyroxine Sodium), 1 TAB PO QAM Nadolol (Nadolol), 40 MG PO QAM Pantoprazole (Protonix), 40 MG PO BID Polyethylene Glycol 3350 (Miralax), 17 GM PO DAILY Rifaximin (Xifaxan), 550 MG PO BID Spironolactone (Aldactone), 100 MG PO QAM Triamcinolone Acet (Aristocort 0.1%), 1 APPLN TOP DAILY Venlafaxine Hcl (Effexor), 100 MG PO DAILY Scheduled PRN Albuterol Sulfate (Proair Respiclick), 2 PUFFS INH Q4 PRN for SOB/Wheezing Allergies Coded Allergies: Iron Dextran (Verified Allergy, Severe, IRON INFUSIONS - COULDN'T BREATH - THROAT CLOSING, 09/25/16) Dobutamine (Verified Allergy, Intermediate, DIFFICULTY SWALLOWING, 09/25/16 ) Physical Exam Vital Signs Date Time Temp Pulse Resp B/P (MAP) Pulse Ox O2 Delivery O2 Flow Rate FiO2 09/25/16 15:32 53 16 142/50 100 Nasal Cannula 2.0 09/25/16 14:16 52 16 111/53 96 Nasal Cannula 2.0 09/25/16 12:45 55 16 122/46 99 Room Air 2.0 Nasal Cannula 09/25/16 12:33 52 09/25/16 12:16 Nasal Cannula 2.0 09/25/16 11:57 57 16 109/32 88 Room Air Physical Exam CONSTITUTIONAL/VITAL SIGNS: Reviewed / noted above. GENERAL: Patient has generalized weakness and drowsiness. INTEGUMENTARY: Warm, dry, and pale. HEAD: Normocephalic. EYES: without scleral icterus or trauma. ENT/OROPHARYNX: clear and moist. LYMPHADENOPATHY/NECK: Is supple without lymphadenopathy or meningismus. RESPIRATORY: Lungs sounds are diminished with crackles at the left base. CARDIOVASCULAR: Regular rate and rhythm. GI/ABDOMEN: Soft and nontender. No organomegaly or pulsatile mass. No rebound or guarding. Normal bowel sounds. EXTREMITIES: Warm and well perfused. BACK: No CVA tenderness. NEUROLOGICAL: Intact without focal deficits. PSYCHIATRIC: normal affect. MUSCULOSKELETAL: Normally developed with good muscle tone. Medical Decision & Procedures ER Provider Diagnostic Interpretation: X ray results and stated below per my interpretation and radiology interpretation. CHEST ONE VIEW PORTABLE CLINICAL HISTORY: sob dyspnea COMPARISON STUDY: 09/09/2016 FINDINGS: Findings of developing congestive heart failure. Small bilateral pleural effusions. Pulmonary vasculature is prominent. IMPRESSION: Congestive heart failure Electronically signed by: Steve Caicedo M.D. 09/25/2016 1:18 PM Dictated Date/Time: 09/25/2016 1:18 PM Laboratory Results 09/25/16 11:40 Red Blood Count 3.12, Mean Corpuscular Volume 82.4, Mean Corpuscular Hemoglobin 23.7, Mean Corpuscular Hemoglobin Concent 28.8, Mean Platelet Volume 10.8, Neutrophils (%) (Auto) 70.7, Lymphocytes (%) (Auto) 12.3, Monocytes (%) (Auto) 14.8, Eosinophils (%) (Auto) 1.6, Basophils (%) (Auto) 0.4, Neutrophils # (Auto ) 8.00, Lymphocytes # (Auto) 1.39, Monocytes # (Auto) 1.68, Eosinophils # (Auto ) 0.18, Basophils # (Auto) 0.05 09/25/16 11:40 Test 09/25/16 00:00 09/25/16 11:40 09/25/16 12:34 09/25/16 13:29 Ammonia 148.0 umol/L (11-32) White Blood Count 11.32 K/uL (4.8-10.8) Red Blood Count 3.12 M/uL (4.2-5.4) Hemoglobin 7.4 g/dL (12.0-16.0) Hematocrit 25.7 % (37-47) Mean Corpuscular Volume 82.4 fL (80-100) Mean Corpuscular Hemoglobin 23.7 pg (25-34) Mean Corpuscular Hemoglobin Concent 28.8 g/dl (32-36) Platelet Count 322 K/uL (130-400) Mean Platelet Volume 10.8 fL (7.4-10.4) Neutrophils (%) (Auto) 70.7 % Lymphocytes (%) (Auto) 12.3 % Monocytes (%) (Auto) 14.8 % Eosinophils (%) (Auto) 1.6 % Basophils (%) (Auto) 0.4 % Neutrophils # (Auto) 8.00 K/uL (1.4-6.5) Lymphocytes # (Auto) 1.39 K/uL (1.2-3.4) Monocytes # (Auto) 1.68 K/uL (0.11-0.59) Eosinophils # (Auto) 0.18 K/uL (0-0.5) Basophils # (Auto) 0.05 K/uL (0-0.2) RDW Standard Deviation 61.8 fL (36.4-46.3) RDW Coefficient of Variation 20.4 % (11.5-14.5) Immature Granulocyte % (Auto) 0.2 % Immature Granulocyte # (Auto) 0.02 K/uL (0.00-0.02) Polychromasia 1+ Hypochromasia PRESENT Prothrombin Time 11.0 SECONDS (9.0-12.0) Prothromb Time International Ratio 1.0 (0.9-1.1) Activated Partial Thromboplast Time 25.4 SECONDS (21.0-31.0) Partial Thromboplastin Ratio 1.0 Anion Gap 4.0 mmol/L (3-11) Est Creatinine Clear Calc Drug Dose 30.7 ml/min Estimated GFR () 29.8 Estimated GFR (Non- 25.7 BUN/Creatinine Ratio 27.5 (10-20) Calcium Level 9.5 mg/dl (8.5-10.1) Total Bilirubin 0.6 mg/dl (0.2-1) Aspartate Amino Transf (AST/SGOT) 35 U/L (15-37) Alanine Aminotransferase (ALT/SGPT) 30 U/L (12-78) Alkaline Phosphatase 119 U/L (45-117) Total Creatine Kinase 135 U/L (26-192) Creatine Kinase MB 2.3 ng/ml (0.5-3.6) Creatine Kinase MB Ratio 1.7 (0-3.0) Troponin I < 0.015 ng/ml (0-0.045) Pro-B-Type Natriuretic Peptide 439 pg/ml (0-900) Total Protein 7.1 gm/dl (6.4-8.2) Albumin 2.7 gm/dl (3.4-5.0) Globulin 4.4 gm/dl (2.5-4.0) Albumin/Globulin Ratio 0.6 (0.9-2) Bedside Lactic Acid Venous 0.44 mmol/L (0.90-1.70) Bedside Glucose 133 mg/dl (70-90) Laboratory results as stated above per my review. Medications Administered Medications (Trade) Dose Ordered Sig/Virgil Route Start Time Stop Time Status Last Admin Dose Admin Albuterol/ Ipratropium (Duoneb) 3 ml NOW STAT INH 09/25/16 12:15 09/25/16 12:16 DC 09/25/16 12:15 3 ML Dextrose (Dextrose 50% 50ML Syringe) 50 ml STK-MED ONCE .ROUTE 09/25/16 13:10 09/25/16 13:11 DC 09/25/16 13:10 50 ML Furosemide (Lasix Inj) 40 mg NOW STAT IV 09/25/16 15:37 09/25/16 15:38 DC 09/25/16 15:37 40 MG ECG Indication: SOB/dyspnea Rate (beats per minute): 56 Rhythm: sinus bradycardia Findings: no acute ischemic change, no ectopy ED Course 1215: Ordered DuoNeb 3 ml INH. 1222: Previous medical records were reviewed. The patient was evaluated in room C11b. A complete history and physical examination was performed. 1310: Reassessed the patient. 1537: Lasix 40 mg IV. 1615: Discussed the case with Gabrielle Stinson PA-C, [facility] Hospitalist. The patient will be evaluated. Medical Decision Differential diagnosis: Etiologies such as metabolic, infection, hypo/hyperglycemia, electrolyte abnormalities, cardiac sources, intracerebral event, toxicologic, neurologic, as well as others were entertained. Medication Reconciliation: I attest that I have personally reviewed the patient' s current medication list. Blood pressure Screening: Patient was found to have normal blood pressure on screening and does not require follow-up. This is a 75-year-old female who presents to the ED with a chief complaint of decreased alertness, weakness, fatigue and some shortness of breath. The patient was brought in by the . Her oxygen saturations on room air was 88%. She is chronically on 2 L. The patient does answer questions but is drowsy. Lungs reveal crackles in the left base. She is otherwise in no distress. EKG shows sinus rhythm with a right bundle branch block. Hemoglobin is 7.4. She does look pale on exam. BUN is 54 and creatinine is 1.9. Chest x- ray reveals findings concerning for congestive heart failure. Ammonia level is elevated at 148. Troponin is negative. The patient was treated here with Lasix IV, DuoNeb treatment and some IV dextrose as she was hypoglycemic. She was also given some oral orange juice. The patient was seen by the hospitalist for further inpatient evaluation and care. Consults Time Called: 1600 Consulting Physician: Gabrielle Stinson PA-C, [facility] Hospitalist. Returned Call: 1615 The patient will be evaluated. Impression Primary Impression: Congestive heart failure Additional Impressions: Hyperammonemia Anemia Hypoglycemia Scribe Attestation The scribe's documentation has been prepared under my direction and personally reviewed by me in its entirety. I confirm that the note above accurately reflects all work, treatment, procedures, and medical decision making performed by me. Departure Information Dispostion Being Evaluated By Hospitalist Referrals Yann Gutierrez D.O. (PCP) Patient Instructions Asthma - [facility], COPD - [facility], Croup - [facility], My [facility] Problem Qualifiers
[2016-09-25 17:15] VITALS: BMI 34.0
[2016-09-25] MEDS ORDERED: ProAir HFA INH (17:47)
--- NOTE | 2016-09-25 17:55 | History and Physical ---
History & Physical Date & Time of Service: Sep 25, 2016 at 17:55 . Chief Complaint: shortness of breath, weakness, confusion . Primary Care Physician: Yann Gutierrez D.OMac . History of Present Illness Source: patient, family, clinic records, hospital records 75-year-old female followed by Dr. Yann Gutierrez. History of diastolic CHF, cirrhosis of liver attributed to GRAHAM, chronic anemia attributed to chronic GI blood loss, and other problems noted below. Recently hospitalized at [facility] on 09/02/16 with acute on chronic respiratory failure and other problems. She was discharged to home on 09/12/16 with home health services. Seen in clinic by Family Medicine and GI and was doing fairly well. Over the past 2 days she has been experiencing increasing dyspnea. No fever or cough. She does not check her weight daily, but is not aware that she has been gaining weight. No change in usual dependent edema. No emesis, melena, hematochezia. She also also felt very weak, needing increasing assistance for ambulation. No falls. notes increasing confusion. . Past Medical/Surgical History Chronic and Rsolved Medical Problems: (1) Anemia- Fe deficiency, chronic GI blood loss Status: Chronic (2) Bladder cancer Status: Chronic (3) Cirrhosis of liver Status: Chronic (4) CKD (chronic kidney disease), stage III Status: Chronic (5) COPD (chronic obstructive pulmonary disease) Status: Resolved (6) Depression Status: Chronic (7) Diabetes mellitus type 2 Status: Chronic (8) Diastolic CHF Status: Chronic (9) Dyslipidemia Status: Chronic (10) GERD (gastroesophageal reflux disease) Status: Chronic (11) GI bleed Status: Resolved (12) History of adenomatous polyp of colon Status: Chronic (13) History of bladder cancer Status: Chronic (14) History of endometrial cancer Status: Chronic (15) Hypercapnia Status: Chronic (16) Hypothyroidism Status: Chronic (17) Iron deficiency anemia Status: Chronic (18) NSTEMI (non-ST elevated myocardial infarction) Permanent Comment: in the setting of acute illness, no EKG or echo findings of ACS Status: Chronic (19) Paroxysmal a-fib Status: Chronic (20) Portal hypertension Permanent Comment: esophageal varices Status: Chronic (21) Portal vein thrombosis Status: Chronic Surgical Problems: (1) H/O colonoscopy with polypectomy Permanent Comment: 09/2015- 2 polyps removed with clips placed, diverticulosis, medium sized lipoma in ascending colon, small AVMs in cecum Status: Chronic (2) H/O esophagogastroduodenoscopy Permanent Comment: 04/2015- scarring, grade I varices, duodenal polyps, portal hypertensive gastropathy Status: Chronic (3) Status post excision bladder tumor Permanent Comment: 2011 Status: Chronic (4) Status post hysterectomy Permanent Comment: endometrial carcinoma Status: Chronic . Family History FH: ovarian cancer MOTHER Social History Smoking Status: Never Smoker Alcohol Use: none Marital Status: Housing status: lives with significant other Occupational Status: retired Immunizations History of Influenza Vaccine: Yes Influenza Vaccine Date: Feb 09, 2016 History of Tetanus Vaccine?: Yes Tetanus Immunization Date: August 31, 2006 History of Pneumococcal: Yes Pneumococcal Date: Feb 24, 2016 History of Hepatitis B Vaccine: Yes Hepatitis Immunization Date: Mar 30, 2008 Multi-Drug Resistant Organisms History of MDRO: No Allergies Coded Allergies: Iron Dextran (Verified Allergy, Severe, IRON INFUSIONS - COULDN'T BREATH - THROAT CLOSING, 09/25/16) Dobutamine (Verified Allergy, Intermediate, DIFFICULTY SWALLOWING, 09/25/16 ) Home Medications Scheduled Aspirin (Aspirin EC Low Dose), 81 MG PO 3XWK Atorvastatin (Lipitor), 80 MG PO QPM Docusate Sodium (Docusate Sodium), 100 MG PO BID Ferrous Sulfate (Ferrous Sulfate), 325 MG PO DAILY Furosemide (Lasix), 40 MG PO BID Insulin Aspart (Novolog Flexpen), 30 UNITS SC BIDM Insulin Aspart (Novolog Flexpen), 20-30 UNITS SC QPM Insulin Glargine (Lantus), 45 UNITS SC BID Lactulose (Kristalose), 10-20 GM PO BID Latanoprost (Xalatan 0.005% Oph Cecilia), 1 DROPS OPB HS Levothyroxine Sodium (Levothyroxine Sodium), 112 MCG PO DAILY Nadolol (Nadolol), 40 MG PO QAM Pantoprazole (Protonix), 40 MG PO BID Polyethylene Glycol 3350 (Miralax), 17 GM PO DAILY Rifaximin (Xifaxan), 550 MG PO BID Spironolactone (Aldactone), 100 MG PO QAM Triamcinolone Acet (Aristocort 0.1%), 1 APPLN TOP DAILY Venlafaxine Hcl (Effexor), 100 MG PO DAILY Scheduled PRN [ProAir HFA], 2 PUFFS INH Q4H PRN for wh Review of Systems Constitutional: No fever, No weight loss Eyes: No worsening of vision, No diplopia ENT: No nasal symptoms, No sore throat Respiratory: + shortness of breath, + dyspnea on exertion, No cough Cardiovascular: + edema, No chest pain Abdomen: No pain, No nausea, No vomiting, No diarrhea, No GI bleeding Musculoskeletal: + joint pain Genitourinary - Female: No dysuria, No hematuria Neurologic: + memory loss, + weakness, + balance problems Endocrine: No excessive thirst, No excessive urination Hematologic / Lymphatic: + abnormal bleeding/bruising Physical Exam Vital Signs Date Time Temp Pulse Resp B/P (MAP) Pulse Ox O2 Delivery O2 Flow Rate FiO2 09/25/16 17:15 Nasal Cannula 2.0 09/25/16 15:32 53 16 142/50 100 Nasal Cannula 2.0 09/25/16 14:16 52 16 111/53 96 Nasal Cannula 2.0 09/25/16 12:45 55 16 122/46 99 Room Air 2.0 Nasal Cannula 09/25/16 12:33 52 09/25/16 12:16 Nasal Cannula 2.0 09/25/16 11:57 57 16 109/32 88 Room Air General Appearance: + mild distress, + obese Head: normocephalic, atraumatic Eyes: PERRL, EOMI, sclerae normal, + pertinent finding (conjunctivae pale) ENT: pharynx normal, + pertinent finding (upper dentures) Neck: supple, no adenopathy, thyroid normal, trachea midline Respiratory/Chest: no respiratory distress, no accessory muscle use, + rales ( bibasilar) Cardiovascular: regular rate, rhythm, + systolic murmur (3/6 systolic murmur at base), + pertinent finding (+ JVD; 1+ pretibial edema; pedal pulses diminished; capillary refill toes 12 seconds) Abdomen/GI: normal bowel sounds, non tender, soft, no organomegaly (nonpalpable ), no pulsatile mass Extremities/Musculoskelatal: no calf tenderness Neurologic/Psych: register of deeds II-XII nml as tested (PERRL, EOMI; no facial palsy; mild dysarthria), + abnormal reflexes (patellar reflexes hyporeflexic), + pertinent finding (; + asterixis) Skin: warm/dry, + pertinent finding (multiple ecchymoses; chronic venous stasis changes lower extremities) Lymphatic: no adenopathy (cervical) Diagnostics Laboratory Results Results Past 24 Hours Test 09/25/16 00:00 09/25/16 11:40 09/25/16 12:34 09/25/16 13:29 Range/Units Ammonia 148.0 11-32 umol/L White Blood Count 11.32 4.8-10.8 K/uL Red Blood Count 3.12 4.2-5.4 M/uL Hemoglobin 7.4 12.0-16.0 g/dL Hematocrit 25.7 37-47 % Mean Corpuscular Volume 82.4 80-100 fL Mean Corpuscular Hemoglobin 23.7 25-34 pg Mean Corpuscular Hemoglobin Concent 28.8 32-36 g/dl Platelet Count 322 130-400 K/uL Mean Platelet Volume 10.8 7.4-10.4 fL Neutrophils (%) (Auto) 70.7 % Lymphocytes (%) (Auto) 12.3 % Monocytes (%) (Auto) 14.8 % Eosinophils (%) (Auto) 1.6 % Basophils (%) (Auto) 0.4 % Neutrophils # (Auto) 8.00 1.4-6.5 K/uL Lymphocytes # (Auto) 1.39 1.2-3.4 K/uL Monocytes # (Auto) 1.68 0.11-0.59 K/uL Eosinophils # (Auto) 0.18 0-0.5 K/uL Basophils # (Auto) 0.05 0-0.2 K/uL RDW Standard Deviation 61.8 36.4-46.3 fL RDW Coefficient of Variation 20.4 11.5-14.5 % Immature Granulocyte % (Auto) 0.2 % Immature Granulocyte # (Auto) 0.02 0.00-0.02 K/uL Polychromasia 1+ Hypochromasia PRESENT Prothrombin Time 11.0 9.0-12.0 SECONDS Prothromb Time International Ratio 1.0 0.9-1.1 Activated Partial Thromboplast Time 25.4 21.0-31.0 SECONDS Partial Thromboplastin Ratio 1.0 Sodium Level 142 136-145 mmol/L Potassium Level 4.5 3.5-5.1 mmol/L Chloride Level 100 98-107 mmol/L Carbon Dioxide Level 38 21-32 mmol/L Anion Gap 4.0 3-11 mmol/L Blood Urea Nitrogen 52 7-18 mg/dl Creatinine 1.90 0.60-1.20 mg/dl Est Creatinine Clear Calc Drug Dose 30.7 ml/min Estimated GFR () 29.8 Estimated GFR (Non- 25.7 BUN/Creatinine Ratio 27.5 10-20 Random Glucose 37 70-99 mg/dl Calcium Level 9.5 8.5-10.1 mg/dl Total Bilirubin 0.6 0.2-1 mg/dl Aspartate Amino Transf (AST/SGOT) 35 15-37 U/L Alanine Aminotransferase (ALT/SGPT) 30 12-78 U/L Alkaline Phosphatase 119 45-117 U/L Total Creatine Kinase 135 26-192 U/L Creatine Kinase MB 2.3 0.5-3.6 ng/ml Creatine Kinase MB Ratio 1.7 0-3.0 Troponin I < 0.015 0-0.045 ng/ml Pro-B-Type Natriuretic Peptide 439 0-900 pg/ml Total Protein 7.1 6.4-8.2 gm/dl Albumin 2.7 3.4-5.0 gm/dl Globulin 4.4 2.5-4.0 gm/dl Albumin/Globulin Ratio 0.6 0.9-2 Bedside Lactic Acid Venous 0.44 0.90-1.70 mmol/L Bedside Glucose 133 70-90 mg/dl Microbiology Results 09/25/16 Blood Culture, Received Pending 09/25/16 Blood Culture, Received Pending Diagnostic Radiology Chest x-ray reviewed by the undersigned and interpreted formally by Radiology: CHEST ONE VIEW PORTABLE FINDINGS: Findings of developing congestive heart failure. Small bilateral pleural effusions. Pulmonary vasculature is prominent. IMPRESSION: Congestive heart failure Electronically signed by: Steve Caicedo M.D. 09/25/2016 1:18 PM . EKG EKG performed at 11:29 reviewed and demonstrated sinus bradycardia at 56 / minute, right bundle branch block. . Impression Assessment and Plan CHF Chest x-ray shows cardiomegaly and pulmonary vascular congestion. History of left ventricular diastolic heart failure based on previous echo. Acute on chronic left ventricular diastolic heart failure. No need to repeat echo at this time. IV furosemide until improved. Spironolactone. Watch renal function closely with more aggressive diuresis. ANEMIA History of chronic iron deficiency anemia attributed to chronic GI blood loss from AVMs. Status post multiple endoscopic evaluations. Has required multiple transfusions. Hemoglobin today 7.4. No gross GI bleeding. Seems to do best maintaining hemoglobin greater than 8.5. Will defer transfusion until CHF improved. ALTERED MENTAL STATUS More confused over last 24 hours. Altered status probably multifactorial, but primarily secondary to hepatic encephalopathy. Continue lactulose, rifaximin. Rule out underlying infection. Check urinalysis. Check ultrasound abdomen to assess for ascites and consider paracentesis to rule out SBP if significant fluid is noted. CORONARY ARTERY DISEASE No anginal symptoms. Continue low-dose aspirin every other day and nadolol. PAROXYSMAL ATRIAL FIB Sinus bradycardia at the time of admission. Continue nadolol. No anticoagulants due to chronic GI blood loss and associated anemia. CHRONIC HYPOXIC + HYPERCAPNIC RESPIRATORY FAILURE / COPD / SLEEP APNEA Does not tolerate CPAP or BiPAP. Continue supplemental oxygen, titrating flow rate to maintain sats in low 90s. GERD Continue PPI. CIRRHOSIS Attributed to GRAHAM. Associated portal hypertension. Not coagulopathic. Continue diuretics, lactulose, rifaximin. Check ultrasound to rule out worsening ascites and possible SBP as noted above. CKD Chronic kidney disease stage III. Serum creatinine now 1.9. Test be volume sensitive. Monitor renal function closely with warfarin aggressive diuresis. DM TYPE 2 Generally well-controlled. Employment A1c on 07/15/16 was 6.8. Hypoglycemic in the ED, poor by mouth intake this morning. Reduce Lantus dose. NovoLog dosing per correction factor/carb ratio. GENERAL DEBILITATION PT/OT evaluations when able to tolerate. VTE PROPHYLAXIS No anticoagulants due to chronic GI blood loss. SCDs. Ambulate as able. RESUSCITATION STATUS Discussed with patient and her . She has a living will. She would like resuscitation attempted in the event of a cardiopulmonary arrest if there is a reasonable chance of a meaningful recovery, but does not want prolonged extraordinary measures if prognosis is poor. Therefore, code status = "Level 1" (full resuscitation). DISPOSITION Admit to Telemetry Unit. Discharge disposition to be determined; may need skilled care. Family Medicine follow-up with Dr. Yann Gutierrez. GI follow-up with Dr. Trinh. Cardiology follow-up with Eva Singleton PA-C. Nephrology follow-up with Dr. Jeffers. . Advanced Directives Existing Living Will: Yes Existing Power of Real Estate Administrative Assistant: Yes VTE Prophylaxis VTE Risk Assessment Done? Y/N: Yes Risk Level: Moderate Given or contraindicated: SCD's
--- NOTE | 2016-09-25 18:47 | DIAGNOSTIC IMAGING REPORT ---
ASCITES-ABDOMEN LIMITED CLINICAL HISTORY: cirrhosis COMPARISON STUDY: 07/14/2016 FINDINGS: The liver has a cirrhotic morphology. There is low volume ascites. IMPRESSION: Low volume ascites, similar to the prior July 2016 study Electronically signed by: Barry Jim M.D. 09/25/2016 6:46 PM Dictated Date/Time: 09/25/2016 6:44 PM
[2016-09-25 19:45] VITALS: BP 108/43; PULSE 58; TEMP 36.5; O2SAT 98
[2016-09-25] MEDS ORDERED: DEXTROSE 50% 50 ML SYR IV PRN (20:00)
[2016-09-25] MEDS ORDERED: GLUCOSE 10 TABS/TUBE PO PRN (20:00)
[2016-09-25] MEDS ORDERED: GLUCAGON FOR INJ 1 MG VIAL SQ PRN (20:00)
[2016-09-25] MEDS ORDERED: GLUCOSE 40% GEL 15 GM TUBE PO PRN (20:00)
[2016-09-25 20:30] VITALS: O2SAT 98
[2016-09-25] MEDS: INSULIN ASPART 100 UNITS/ML 3 ML PEN SC SCH (21:00)
[2016-09-25] MEDS ORDERED: INSULIN ASPART 100 UNITS/ML 3 ML PEN SC SCH (21:00)
[2016-09-25] MEDS: LATANOPROST 0.005% OP SOLN 2.5 ML BTL OPB SCH (21:33)
[2016-09-25] MEDS: RIFAXIMIN TAB 550 MG TAB PO SCH (21:33)
[2016-09-25] MEDS: ATORVASTATIN 40 MG TAB PO SCH (21:34)
[2016-09-25] MEDS: DOCUSATE SODIUM 100 MG CAP PO SCH (21:34)
[2016-09-25] MEDS: PANTOprazole SOD 40 MG TAB PO SCH (21:34)
[2016-09-25] MEDS: INSULIN GLARGINE SOLOSTAR 100 UNITS/ML 3 ML PEN SC SCH (21:40)
[2016-09-25 22:28] LABS: URINE APPEARANCE CLOUDY (CLEAR); URINE BILIRUBIN NEG (NEG); URINE COLOR YELLOW; URINE EPITHELIAL CELL AUTO >30 /lpf (0-5); URINE NITRITE NEG (NEG); URINE SPECIFIC GRAVITY 1.018 (1.000-1.030); UROBILINOGEN NEG (NEG); ZZURINE CULT IF INDIC CATH NO
[2016-09-25 22:32] LABS: MANUAL MICROSCOPIC REQUIRED? NO; REVIEW REQ? YES
[2016-09-26] VITALS (27 sets, daily range): BP systolic 109–140; BP diastolic 38–91; PULSE 62–100; TEMP 36.6–37.3; O2SAT 95–100; Ht 167.6 cm; Wt 83.7 kg
[2016-09-26] MEDS: LEVOTHYROXINE 112 MCG TAB PO SCH (04:59)
[2016-09-26 06:35] LABS: HEMATOCRIT 23.5 % (37-47)
[2016-09-26] MEDS: INSULIN ASPART 100 UNITS/ML 3 ML PEN SC SCH ×4 (07:00→20:52)
[2016-09-26] MEDS ORDERED: ALBUT/IPRATROP 3MG/0.5MG NEB 3 ML VIAL INH PRN (07:00)
[2016-09-26 07:03] LABS: CALCIUM 9.3 mg/dl (8.5-10.1); POTASSIUM 5.2 mmol/L (3.5-5.1)
[2016-09-26] MEDS ORDERED: FUROSEMIDE INJ 40 MG in SYRINGE 0 ML IV SCH (08:00)
--- NOTE | 2016-09-26 08:08 | DIAGNOSTIC IMAGING REPORT ---
CHEST ONE VIEW PORTABLE CLINICAL HISTORY: CHF dyspnea COMPARISON STUDY: 09/25/2016 FINDINGS: Findings of congestive failure similar compared to the prior exam. Left and to a lesser extent right pleural effusions similar to the prior exam. Pulmonary vasculature remains prominent. IMPRESSION: Congestive heart failure. Stable exam from the prior study. Electronically signed by: Steve Caicedo M.D. 09/26/2016 8:06 AM Dictated Date/Time: 09/26/2016 8:05 AM
[2016-09-26] MEDS: RIFAXIMIN TAB 550 MG TAB PO SCH ×2 (08:22→20:50)
[2016-09-26] MEDS: FERROUS SULFATE 325 MG TAB PO SCH (08:22)
[2016-09-26] MEDS: PANTOprazole SOD 40 MG TAB PO SCH ×2 (08:22→20:50)
[2016-09-26] MEDS: VENLAFAXINE HCL 50 MG TAB PO SCH (08:23)
[2016-09-26] MEDS: DOCUSATE SODIUM 100 MG CAP PO SCH ×2 (08:24→20:50)
[2016-09-26] MEDS: NADOLOL 40 MG TAB PO SCH (08:24)
[2016-09-26] MEDS: LACTULOSE PO SCH ×2 (08:24→20:51)
[2016-09-26] MEDS: POLYETHYLENE (MIRALAX) 17 GM PACK PO SCH (08:24)
[2016-09-26] MEDS: INSULIN GLARGINE SOLOSTAR 100 UNITS/ML 3 ML PEN SC SCH ×2 (08:25→20:51)
[2016-09-26] MEDS ORDERED: SPIRONOLACTONE 100 MG TAB PO SCH (09:00)
[2016-09-26] MEDS ORDERED: SODIUM POLYST. SULF SUSP 15G/60ML PO ONE (10:00)
[2016-09-26] MEDS ORDERED: LACTULOSE SYRUP 30 GM/45 ML UDP PO ONE (10:15)
[2016-09-26 16:44] LABS: CREATININE 2.2 mg/dl (0.60-1.20); POTASSIUM 5.2 mmol/L (3.5-5.1)
--- NOTE | 2016-09-26 17:33 | Progress Note ---
Internal Med Progress Note Date of Service: Sep 26, 2016. Provider Documentation: SUBJECTIVE: says not feeling great has pain all over tired not moved bowels no chest pain or sob has cough with yellowish white sputum afebrile OBJECTIVE: Vital Signs-as noted below Exam: General-alert and oriented. Not in distress ENT-normal hearing Neck-no neck masses Lungs-cta b/l no wheezing bibasilar crackles present Heart-s1 and s2 heard regular no murmurs Abdomen-soft bowel sounds present nontender no distension Extremities-pedal edema present no erythema Neuro-alert and oriented moves extremities Lab data as noted below. ASSESSMENT & PLAN: Acute on chronic Diastolic CHF currently on iv lasix follow daily wts i/o holding Spironolactone for hyperkalemia Will monitor renal function closely with more aggressive diuresis. ANEMIA History of chronic iron deficiency anemia attributed to chronic GI blood loss from AVMs. Status post multiple endoscopic evaluations. Has required multiple transfusions. Hemoglobin today 6.8 today No gross GI bleeding. transfusing two units today will f/u labs ALTERED MENTAL STATUS More confused over last 24 hours. Altered status probably multifactorial, but primarily secondary to hepatic encephalopathy. on lactulose and rifaximin presented with ammonia 149 ammonia today 50 CORONARY ARTERY DISEASE No anginal symptoms. on low-dose aspirin every other day and nadolol. PAROXYSMAL ATRIAL FIB Sinus bradycardia at the time of admission. On nadolol. No anticoagulants due to chronic GI blood loss and associated anemia. CHRONIC HYPOXIC + HYPERCAPNIC RESPIRATORY FAILURE / COPD / SLEEP APNEA Does not tolerate CPAP or BiPAP. saturating ok on 3lts GERD Continue PPI. CIRRHOSIS Attributed to GRAHAM. Associated portal hypertension. Not coagulopathic. diuretics, lactulose, rifaximin as above. Not much ascites on ultrasound CKD Chronic kidney disease stage III. presented with creatinine 1.9. baseline around 1.5 to 1.7 cr 2.2 now will monitor while on iv diuretics Hyperkalemia ia k 5.2 holding Aldactone renal diet received Kayexalate repeat labs still k 5.2will give another dose of Kayexalate and f/u labs in am DM TYPE 2 Generally well-controlled. Employment A1c on 07/15/16 was 6.8. on Lantus and ISS will monitor GENERAL DEBILITATION PT/OT evaluations when able to tolerate. VTE PROPHYLAXIS No anticoagulants due to chronic GI blood loss. SCDs. RESUSCITATION STATUS Level 1 as per H and P but no heroic measures if no chance of recovery DISPOSITION Monitor in tele pt/ot prior to discharge social service to help with d/c planning Family Medicine follow-up with Dr. Yann Gutierrez. GI follow-up with Dr. Trinh. Cardiology follow-up with Eva Singleton PA-C. Nephrology follow-up with Dr. Jeffers. . Vital Signs: Date Time Temp Pulse Resp B/P (MAP) Pulse Ox O2 Delivery O2 Flow Rate FiO2 09/26/16 15:41 36.9 62 20 139/49 (79) 99 Nasal Cannula 3.0 09/26/16 14:30 36.9 64 17 129/46 100 3.0 09/26/16 14:00 36.7 65 17 129/49 100 3.0 09/26/16 13:30 36.7 63 18 134/52 100 3.0 09/26/16 13:15 36.7 63 18 138/49 97 3.0 09/26/16 13:00 36.7 65 18 115/42 100 3.0 09/26/16 12:45 36.6 67 19 122/43 97 3.0 09/26/16 12:37 36.7 69 19 122/47 97 3.0 09/26/16 12:00 36.7 71 18 127/44 (71) 99 Room Air 09/26/16 12:00 Room Air 09/26/16 11:30 36.6 67 20 140/45 100 3.0 09/26/16 11:00 36.9 69 19 131/42 99 3.0 09/26/16 10:30 36.9 68 20 128/38 98 3.0 09/26/16 10:00 37.0 70 21 126/43 99 3.0 09/26/16 09:45 36.8 67 19 127/41 100 3.0 09/26/16 09:30 37.0 69 18 127/44 99 3.0 09/26/16 09:06 37.3 68 21 123/57 99 3.0 09/26/16 08:00 99 Nasal Cannula 2.0 09/26/16 07:21 36.9 66 18 122/55 (77) 100 Nasal Cannula 3.0 09/26/16 04:30 97 Nasal Cannula 2.0 09/26/16 04:00 36.8 69 18 109/39 (62) 98 Nasal Cannula 2.0 09/26/16 03:23 36.8 63 18 123/49 (73) 99 Nasal Cannula 3.0 09/26/16 00:10 98 Nasal Cannula 2.0 09/26/16 00:00 36.8 63 18 123/49 (73) 99 Nasal Cannula 2.0 09/26/16 00:00 95 09/25/16 20:30 98 Nasal Cannula 2.0 09/25/16 19:45 36.5 58 18 108/43 (64) 98 Nasal Cannula 2.0 09/25/16 18:37 56 16 125/55 100 Lab Results: Results Past 24 Hours Test 09/25/16 19:49 09/25/16 21:30 09/25/16 21:37 09/26/16 06:08 Range/Units Bedside Glucose 93 137 70-90 mg/dl Urine Color YELLOW Urine Appearance CLOUDY CLEAR Urine pH 5.0 4.5-7.5 Urine Specific [place] 1.018 1.000-1.030 Urine Protein NEG NEG Urine Glucose (UA) NEG NEG Urine Ketones NEG NEG Urine Occult Blood 1+ NEG Urine Nitrite NEG NEG Urine Bilirubin NEG NEG Urine Urobilinogen NEG NEG Urine Leukocyte Esterase NEG NEG Urine WBC (Auto) 1-5 0-5 /hpf Urine RBC (Auto) 0-4 0-4 /hpf Urine Hyaline Casts (Auto) 5-10 0-5 /lpf Urine Epithelial Cells (Auto) >30 0-5 /lpf Urine Bacteria (Auto) NEG NEG Urine Renal Epithelial Cells 0-5 /lpf Urine Pathogenic Casts 0 /lpf Sodium Level 141 136-145 mmol/L Potassium Level 5.2 3.5-5.1 mmol/L Chloride Level 100 98-107 mmol/L Carbon Dioxide Level 39 21-32 mmol/L Anion Gap 2.0 3-11 mmol/L Blood Urea Nitrogen 58 7-18 mg/dl Creatinine 2.00 0.60-1.20 mg/dl Est Creatinine Clear Calc Drug Dose 28.8 ml/min Estimated GFR () 28.0 Estimated GFR (Non- 24.2 BUN/Creatinine Ratio 29.0 10-20 Random Glucose 122 70-99 mg/dl Calcium Level 9.3 8.5-10.1 mg/dl Test 09/26/16 06:09 09/26/16 07:01 09/26/16 11:27 09/26/16 16:17 Range/Units Hemoglobin 6.8 12.0-16.0 g/dL Hematocrit 23.5 37-47 % Bedside Glucose 121 236 70-90 mg/dl Potassium Level 5.2 3.5-5.1 mmol/L Creatinine 2.20 0.60-1.20 mg/dl Est Creatinine Clear Calc Drug Dose 26.1 ml/min Estimated GFR () 25.0 Estimated GFR (Non- 21.5 Ammonia 50.0 11-32 umol/L
[2016-09-26] MEDS: LATANOPROST 0.005% OP SOLN 2.5 ML BTL OPB SCH (20:50)
[2016-09-26] MEDS: ATORVASTATIN 40 MG TAB PO SCH (20:50)
[2016-09-26] MEDS: TRAMADOL HCL 50 MG TAB PO PRN (23:14)
[2016-09-27] VITALS (9 sets, daily range): BP systolic 124–139; BP diastolic 49–64; PULSE 63–70; TEMP 36.5–36.8; O2SAT 93–100
[2016-09-27] MEDS: LEVOTHYROXINE 112 MCG TAB PO SCH (05:43)
[2016-09-27 05:58] LABS: BASO % 0.4 %; BASO ABS # 0.04 K/uL (0-0.2); EOS % 0.5 %; IG% 0.1 %; LYMPH % 15.1 %; LYMPH ABS # 1.55 K/uL (1.2-3.4); MEAN CELL VOLUME 83.1 fL (80-100); MEAN CORPUSCULAR HEMOGLOBIN 24.9 pg (25-34); MEAN PLATELET VOLUME 10.3 fL (7.4-10.4); MONO % 15.2 %; NEUT % 68.7 %; PLATELET COUNT 236 K/uL (130-400); RED BLOOD COUNT 3.73 M/uL (4.2-5.4); WHITE BLOOD COUNT 10.25 K/uL (4.8-10.8)
[2016-09-27 06:25] LABS: ANISOCYTOSIS PRESENT; COMPLETE YES
[2016-09-27 06:35] LABS: BUN/CREATININE RATIO 27.2 (10-20); CALCIUM 9.1 mg/dl (8.5-10.1); CREATININE 2.2 mg/dl (0.60-1.20); POTASSIUM 4.6 mmol/L (3.5-5.1)
[2016-09-27] MEDS: INSULIN ASPART 100 UNITS/ML 3 ML PEN SC SCH ×4 (07:41→20:34)
[2016-09-27] MEDS: INSULIN GLARGINE SOLOSTAR 100 UNITS/ML 3 ML PEN SC SCH ×2 (07:41→20:35)
[2016-09-27] MEDS: ASPIRIN 81 MG ECTAB PO SCH (08:25)
[2016-09-27] MEDS: RIFAXIMIN TAB 550 MG TAB PO SCH ×2 (08:25→19:23)
[2016-09-27] MEDS: PANTOprazole SOD 40 MG TAB PO SCH ×2 (08:25→19:24)
[2016-09-27] MEDS: DOCUSATE SODIUM 100 MG CAP PO SCH ×2 (08:26→19:24)
[2016-09-27] MEDS: VENLAFAXINE HCL 50 MG TAB PO SCH (08:26)
[2016-09-27] MEDS: POLYETHYLENE (MIRALAX) 17 GM PACK PO SCH (08:26)
[2016-09-27] MEDS: NADOLOL 40 MG TAB PO SCH (08:26)
[2016-09-27] MEDS: LACTULOSE PO SCH ×2 (08:27→19:25)
[2016-09-27] MEDS: FERROUS SULFATE 325 MG TAB PO SCH (08:27)
[2016-09-27] MEDS ORDERED: FUROSEMIDE INJ 40 MG in SYRINGE 0 ML IV SCH (09:00)
--- NOTE | 2016-09-27 10:56 | Clinical Documentation Query ---
QUERY 1 OF [address] VALLADARES, In your clinical opinion is this patient being managed for: ( x ) Acute hepatic encephalopathy ( ) Chronic hepatic encephalopathy ( ) Acute and chronic hepatic encephalopathy ( ) Other explanation of clinical findings (Please Explain) ( ) Unable to determine (Please Define) ( ) Need to Discuss ( ) Not Agree The medical record reflects the following clinical findings, treatment, and risk factors. Clinical Indicators:75 yo female presenting with acute on chronic diastolic heart failure and increasing lethargy. Initially Ammonia level 148 but has improved to 50. Treatment:continue lactulose and rifaximin, monitor ammonia level. Risk Factors: acute diastolic CHF, cirrhosis, CKD QUERY 2 OF 2 In your clinical opinion is this patient being managed for: ( x ) Acute kidney failure ( ) Other explanation of clinical findings (Please Explain) ( ) Unable to determine (Please Define) ( ) Need to Discuss ( ) Not Agree The medical record reflects the following clinical findings, treatment, and risk factors. Clinical Indicators: Initial Cr 1.90 which has risen to 2.20. Recent comparison Cr range of 1.5-1.7 noted in early September 2016. Treatment:monitor PRP's and CBC's, unable to administer IV fluids due to acute diastolic CHF, I/O, daily wts, 2U PRBC, renal/DM II diet Risk Factors:IV lasix for CHF management, anemia, DM, cirrhosis Please clarify and document your clinical opinion in the progress notes and discharge summary. Terms such as "probable", "suspected", "likely", "questionable", "possible", or "still to be ruled out" are acceptable. IF IN AGREEMENT, YOU MUST DOCUMENT ABOVE DIAGNOSTIC STATEMENT IN DAILY PROGRESS NOTES AND DISCHARGE SUMMARY. This document is not part of the patient's record. Thank You, Jessica Leon, LUIS M [phone]
[2016-09-27 16:48] LABS: HEMATOCRIT 32.6 % (37-47)
[2016-09-27 17:13] LABS: BUN/CREATININE RATIO 23.5 (10-20); CALCIUM 9.2 mg/dl (8.5-10.1); CREATININE 2.3 mg/dl (0.60-1.20); POTASSIUM 4.7 mmol/L (3.5-5.1)
--- NOTE | 2016-09-27 18:32 | Progress Note ---
Internal Med Progress Note Date of Service: Sep 27, 2016. Provider Documentation: SUBJECTIVE: feeling much better today sob better but has cough with yelow sputum afebrile no pain had big bowel movement yesterday eating ok OBJECTIVE: Vital Signs-as noted below Exam: General-alert and oriented. Not in distress ENT-normal hearing Neck-no neck masses Lungs-cta b/l no wheezing bibasilar crackles present Heart-s1 and s2 heard regular no murmurs Abdomen-soft bowel sounds present nontender no distension Extremities-pedal edema present no erythema Neuro-alert and oriented moves extremities Lab data as noted below. ASSESSMENT & PLAN: Acute on chronic Diastolic CHF currently on iv lasix follow daily wts i/o holding Spironolactone for hyperkalemia Will monitor renal function closely with more aggressive diuresis. Received i vlasx today but will hold in am as renal function deteriorating ANEMIA History of chronic iron deficiency anemia attributed to chronic GI blood loss from AVMs. Status post multiple endoscopic evaluations. Has required multiple transfusions. Hemoglobin 6.8 on 09/26/16 No gross GI bleeding. s/p two units prbc transfused hb 9.6 today will f/u labs ALTERED MENTAL STATUS More confused over last 24 hours. Altered status probably multifactorial, but primarily secondary to hepatic encephalopathy. on lactulose and rifaximin presented with ammonia 149 ammonia today 50 improved CORONARY ARTERY DISEASE No anginal symptoms. on low-dose aspirin every other day and nadolol. PAROXYSMAL ATRIAL FIB Sinus bradycardia at the time of admission. On nadolol. No anticoagulants due to chronic GI blood loss and associated anemia. CHRONIC HYPOXIC + HYPERCAPNIC RESPIRATORY FAILURE / COPD / SLEEP APNEA Does not tolerate CPAP or BiPAP. saturating ok on 3lts GERD Continue PPI. CIRRHOSIS Attributed to GRAHAM. Associated portal hypertension. Not coagulopathic. diuretics, lactulose, rifaximin as above. Not much ascites on ultrasound ARF on CKD Chronic kidney disease stage III. presented with creatinine 1.9. baseline around 1.5 to 1.7 cr 2.3 now will hold iv diuretics f/u labs in am Hyperkalemia k 5.2 holding Aldactone renal diet received Kayexalate resolved DM TYPE 2 Generally well-controlled. Employment A1c on 07/15/16 was 6.8. on Lantus and ISS will monitor GENERAL DEBILITATION PT/OT evaluations when able to tolerate. VTE PROPHYLAXIS No anticoagulants due to chronic GI blood loss. SCDs. RESUSCITATION STATUS Level 1 as per H and P but no heroic measures if no chance of recovery DISPOSITION Monitor in tele pt/ot prior to discharge social service to help with d/c planning Vital Signs: Date Time Temp Pulse Resp B/P (MAP) Pulse Ox O2 Delivery O2 Flow Rate FiO2 09/27/16 16:00 98 Nasal Cannula 3.0 09/27/16 15:22 36.5 63 20 124/51 (75) 98 Nasal Cannula 2.0 09/27/16 12:00 Nasal Cannula 3.0 09/27/16 12:00 36.5 65 19 137/51 (79) 99 Nasal Cannula 3.0 09/27/16 08:00 98 Nasal Cannula 3.0 09/27/16 06:53 36.5 68 21 139/61 (87) 98 Nasal Cannula 3.0 09/27/16 04:05 Nasal Cannula 2.0 09/27/16 04:00 36.6 65 20 132/51 (78) 98 Nasal Cannula 2.0 09/27/16 00:00 36.8 68 21 139/59 (85) 99 Nasal Cannula 2.0 09/26/16 23:30 99 Nasal Cannula 2.0 09/26/16 20:15 99 Nasal Cannula 2.0 09/26/16 19:39 36.9 65 20 133/61 (85) 99 Nasal Cannula 3.0 Lab Results: Results Past 24 Hours Test 09/26/16 18:50 09/26/16 19:55 09/27/16 05:40 09/27/16 06:54 Range/Units Hemoglobin 9.5 9.3 12.0-16.0 g/dL Hematocrit 33.0 31.0 37-47 % Bedside Glucose 237 116 70-90 mg/dl White Blood Count 10.25 4.8-10.8 K/uL Red Blood Count 3.73 4.2-5.4 M/uL Mean Corpuscular Volume 83.1 80-100 fL Mean Corpuscular Hemoglobin 24.9 25-34 pg Mean Corpuscular Hemoglobin Concent 30.0 32-36 g/dl Platelet Count 236 130-400 K/uL Mean Platelet Volume 10.3 7.4-10.4 fL Neutrophils (%) (Auto) 68.7 % Lymphocytes (%) (Auto) 15.1 % Monocytes (%) (Auto) 15.2 % Eosinophils (%) (Auto) 0.5 % Basophils (%) (Auto) 0.4 % Neutrophils # (Auto) 7.04 1.4-6.5 K/uL Lymphocytes # (Auto) 1.55 1.2-3.4 K/uL Monocytes # (Auto) 1.56 0.11-0.59 K/uL Eosinophils # (Auto) 0.05 0-0.5 K/uL Basophils # (Auto) 0.04 0-0.2 K/uL RDW Standard Deviation 61.1 36.4-46.3 fL RDW Coefficient of Variation 20.3 11.5-14.5 % Immature Granulocyte % (Auto) 0.1 % Immature Granulocyte # (Auto) 0.01 0.00-0.02 K/uL Anisocytosis PRESENT Sodium Level 140 136-145 mmol/L Potassium Level 4.6 3.5-5.1 mmol/L Chloride Level 99 98-107 mmol/L Carbon Dioxide Level 38 21-32 mmol/L Anion Gap 3.0 3-11 mmol/L Blood Urea Nitrogen 60 7-18 mg/dl Creatinine 2.20 0.60-1.20 mg/dl Est Creatinine Clear Calc Drug Dose 26.1 ml/min Estimated GFR () 25.0 Estimated GFR (Non- 21.5 BUN/Creatinine Ratio 27.2 10-20 Random Glucose 124 70-99 mg/dl Calcium Level 9.1 8.5-10.1 mg/dl Test 09/27/16 11:10 09/27/16 16:15 09/27/16 16:19 Range/Units Bedside Glucose 217 226 70-90 mg/dl Hemoglobin 9.6 12.0-16.0 g/dL Hematocrit 32.6 37-47 % Sodium Level 140 136-145 mmol/L Potassium Level 4.7 3.5-5.1 mmol/L Chloride Level 98 98-107 mmol/L Carbon Dioxide Level 40 21-32 mmol/L Anion Gap 2.0 3-11 mmol/L Blood Urea Nitrogen 54 7-18 mg/dl Creatinine 2.30 0.60-1.20 mg/dl Est Creatinine Clear Calc Drug Dose 25.0 ml/min Estimated GFR () 23.6 Estimated GFR (Non- 20.4 BUN/Creatinine Ratio 23.5 10-20 Random Glucose 221 70-99 mg/dl Calcium Level 9.2 8.5-10.1 mg/dl
[2016-09-27] MEDS: LATANOPROST 0.005% OP SOLN 2.5 ML BTL OPB SCH (19:22)
[2016-09-27] MEDS: ATORVASTATIN 40 MG TAB PO SCH (19:24)
[2016-09-28] VITALS (7 sets, daily range): BP systolic 116–128; BP diastolic 52–69; PULSE 61–71; TEMP 36.4–36.8; O2SAT 94–100
[2016-09-28] MEDS: LEVOTHYROXINE 112 MCG TAB PO SCH (05:50)
[2016-09-28 06:16] LABS: BASO % 0.3 %; BASO ABS # 0.03 K/uL (0-0.2); EOS % 0.4 %; HEMATOCRIT 31.3 % (37-47); IG% 0.2 %; LYMPH % 14.1 %; LYMPH ABS # 1.58 K/uL (1.2-3.4); MEAN CELL VOLUME 85.1 fL (80-100); MEAN CORPUSCULAR HGB CONC 29.4 g/dl (32-36); MEAN PLATELET VOLUME 9.9 fL (7.4-10.4); PLATELET COUNT 208 K/uL (130-400); RED BLOOD COUNT 3.68 M/uL (4.2-5.4); WHITE BLOOD COUNT 11.22 K/uL (4.8-10.8)
[2016-09-28 06:41] LABS: ANISOCYTOSIS PRESENT; COMPLETE YES
[2016-09-28 06:54] LABS: BUN/CREATININE RATIO 25.5 (10-20); CALCIUM 9.1 mg/dl (8.5-10.1); CREATININE 2.2 mg/dl (0.60-1.20); POTASSIUM 4.8 mmol/L (3.5-5.1)
--- NOTE | 2016-09-28 07:38 | DIAGNOSTIC IMAGING REPORT ---
CHEST ONE VIEW PORTABLE CLINICAL HISTORY: congestion/pleural effusion dyspnea COMPARISON STUDY: 09/26/2016 FINDINGS: Congestive heart failure. Similar left effusion compared to the prior study. Unchanged prominence of pulmonary vasculature. Slight improvement in aeration right base. IMPRESSION: Congestive failure essentially unaltered from the prior study. Slight improvement in aeration right base. Electronically signed by: Steve Caicedo M.D. 09/28/2016 7:37 AM Dictated Date/Time: 09/28/2016 7:35 AM
[2016-09-28] MEDS: INSULIN ASPART 100 UNITS/ML 3 ML PEN SC SCH ×4 (07:41→20:21)
[2016-09-28] MEDS: INSULIN GLARGINE SOLOSTAR 100 UNITS/ML 3 ML PEN SC SCH ×2 (07:42→20:17)
[2016-09-28] MEDS: DOCUSATE SODIUM 100 MG CAP PO SCH ×2 (08:43→20:00)
[2016-09-28] MEDS: LACTULOSE PO SCH ×2 (08:43→20:00)
[2016-09-28] MEDS: POLYETHYLENE (MIRALAX) 17 GM PACK PO SCH (08:44)
[2016-09-28] MEDS: NADOLOL 40 MG TAB PO SCH (08:44)
[2016-09-28] MEDS: PANTOprazole SOD 40 MG TAB PO SCH ×2 (08:44→20:14)
[2016-09-28] MEDS: VENLAFAXINE HCL 50 MG TAB PO SCH (08:45)
[2016-09-28] MEDS: RIFAXIMIN TAB 550 MG TAB PO SCH ×2 (08:45→20:14)
[2016-09-28] MEDS: FERROUS SULFATE 325 MG TAB PO SCH (08:45)
[2016-09-28] MEDS ORDERED: AZITHROMYCIN 250 MG TAB PO ONE (09:30)
[2016-09-28] MEDS: CEFUROXIME AXETIL 500 MG TAB PO SCH (09:47)
[2016-09-28] MEDS ORDERED: LACTULOSE SYRUP 30 GM/45 ML UDP PO ONE (10:00)
[2016-09-28] MEDS ORDERED: BISACODYL 10 MG SUPP PR ONE (10:00)
[2016-09-28] MEDS ORDERED: BISACODYL 10 MG SUPP ONE (12:53)
--- NOTE | 2016-09-28 17:27 | Progress Note ---
Internal Med Progress Note Date of Service: Sep 28, 2016. Provider Documentation: SUBJECTIVE: doing ok denies sob but has cough eating ok no bowel movement in last two days afebrile OBJECTIVE: Vital Signs-as noted below Exam: General-alert and oriented. Not in distress ENT-normal hearing Neck-no neck masses Lungs-cta b/l no wheezing bibasilar crackles present Heart-s1 and s2 heard regular no murmurs Abdomen-soft bowel sounds present nontender no distension Extremities-pedal edema present no erythema Neuro-alert and oriented moves extremities Lab data as noted below. ASSESSMENT & PLAN: Acute on chronic Diastolic CHF currently on iv lasix follow daily wts i/o holding Spironolactone for hyperkalemia Will monitor renal function closely with more aggressive diuresis. Received i v lasx today but holding now renal function deteriorating stable now ANEMIA History of chronic iron deficiency anemia attributed to chronic GI blood loss from AVMs. Status post multiple endoscopic evaluations. Has required multiple transfusions. Hemoglobin 6.8 on 09/26/16 No gross GI bleeding. s/p two units prbc transfused hb 9.2 today will f/u labs ALTERED MENTAL STATUS Acute hepatic encephalopathy Altered status probably multifactorial, but primarily secondary to hepatic encephalopathy. on lactulose and rifaximin presented with ammonia 149 ammonia today 50 improved will f/u labs. ARF on CKD Chronic kidney disease stage III. presented with creatinine 1.9. baseline around 1.5 to 1.7 cr 2.2 now holding iv diuretics f/u labs in am Stable conditions: CORONARY ARTERY DISEASE No anginal symptoms. on low-dose aspirin every other day and nadolol. PAROXYSMAL ATRIAL FIB Sinus bradycardia at the time of admission. On nadolol. No anticoagulants due to chronic GI blood loss and associated anemia. CHRONIC HYPOXIC + HYPERCAPNIC RESPIRATORY FAILURE / COPD / SLEEP APNEA Does not tolerate CPAP or BiPAP. saturating ok on 3lts GERD Continue PPI. CIRRHOSIS Attributed to GRAHAM. Associated portal hypertension. Not coagulopathic. diuretics, lactulose, rifaximin as above. Not much ascites on ultrasound Hyperkalemia k 5.2 holding Aldactone renal diet received Kayexalate resolved DM TYPE 2 Generally well-controlled. Employment A1c on 07/15/16 was 6.8. on Lantus and ISS will monitor GENERAL DEBILITATION PT/OT evaluations when able to tolerate. VTE PROPHYLAXIS No anticoagulants due to chronic GI blood loss. SCDs. RESUSCITATION STATUS Level 1 as per H and P but no heroic measures if no chance of recovery DISPOSITION Transfer to medical floor pt/ot prior to discharge social service to help with d/c planning Vital Signs: Date Time Temp Pulse Resp B/P (MAP) Pulse Ox O2 Delivery O2 Flow Rate FiO2 09/28/16 15:29 36.4 61 16 126/67 (86) 100 Nasal Cannula 3.0 09/28/16 14:03 64 98 09/28/16 11:23 Nasal Cannula 3.0 09/28/16 10:56 36.7 62 18 128/54 (78) 99 Nasal Cannula 3.0 09/28/16 10:34 36.8 71 16 94 3.0 09/28/16 08:19 36.8 71 16 116/52 (73) 94 09/28/16 08:00 Nasal Cannula 3.0 09/28/16 04:00 Nasal Cannula 3.0 09/28/16 03:55 36.5 66 20 127/54 (78) 99 Nasal Cannula 3.0 09/28/16 00:00 Nasal Cannula 3.0 09/27/16 23:52 36.8 70 20 136/64 (88) 93 Nasal Cannula 3.0 09/27/16 20:00 Nasal Cannula 3.0 09/27/16 18:59 36.8 64 20 128/49 (75) 100 Nasal Cannula 2.0 Lab Results: Results Past 24 Hours Test 09/27/16 19:58 09/28/16 05:54 09/28/16 06:33 09/28/16 12:02 Range/Units Bedside Glucose 200 183 202 70-90 mg/dl White Blood Count 11.22 4.8-10.8 K/uL Red Blood Count 3.68 4.2-5.4 M/uL Hemoglobin 9.2 12.0-16.0 g/dL Hematocrit 31.3 37-47 % Mean Corpuscular Volume 85.1 80-100 fL Mean Corpuscular Hemoglobin 25.0 25-34 pg Mean Corpuscular Hemoglobin Concent 29.4 32-36 g/dl Platelet Count 208 130-400 K/uL Mean Platelet Volume 9.9 7.4-10.4 fL Neutrophils (%) (Auto) 72.0 % Lymphocytes (%) (Auto) 14.1 % Monocytes (%) (Auto) 13.0 % Eosinophils (%) (Auto) 0.4 % Basophils (%) (Auto) 0.3 % Neutrophils # (Auto) 8.08 1.4-6.5 K/uL Lymphocytes # (Auto) 1.58 1.2-3.4 K/uL Monocytes # (Auto) 1.46 0.11-0.59 K/uL Eosinophils # (Auto) 0.05 0-0.5 K/uL Basophils # (Auto) 0.03 0-0.2 K/uL RDW Standard Deviation 61.9 36.4-46.3 fL RDW Coefficient of Variation 20.3 11.5-14.5 % Immature Granulocyte % (Auto) 0.2 % Immature Granulocyte # (Auto) 0.02 0.00-0.02 K/uL Anisocytosis PRESENT Sodium Level 139 136-145 mmol/L Potassium Level 4.8 3.5-5.1 mmol/L Chloride Level 99 98-107 mmol/L Carbon Dioxide Level 38 21-32 mmol/L Anion Gap 2.0 3-11 mmol/L Blood Urea Nitrogen 56 7-18 mg/dl Creatinine 2.20 0.60-1.20 mg/dl Est Creatinine Clear Calc Drug Dose 26.2 ml/min Estimated GFR () 25.0 Estimated GFR (Non- 21.5 BUN/Creatinine Ratio 25.5 10-20 Random Glucose 182 70-99 mg/dl Calcium Level 9.1 8.5-10.1 mg/dl Test 09/28/16 16:44 Range/Units Bedside Glucose 160 70-90 mg/dl
[2016-09-28] MEDS: ATORVASTATIN 40 MG TAB PO SCH (20:19)
[2016-09-28] MEDS: LATANOPROST 0.005% OP SOLN 2.5 ML BTL OPB SCH (20:20)
[2016-09-29] MEDS: LEVOTHYROXINE 112 MCG TAB PO SCH (06:00)
[2016-09-29 06:18] LABS: BASO % 0.5 %; BASO ABS # 0.04 K/uL (0-0.2); EOS % 0.6 %; HEMATOCRIT 33.8 % (37-47); IG% 0.1 %; LYMPH % 14.2 %; LYMPH ABS # 1.26 K/uL (1.2-3.4); MEAN CELL VOLUME 85.6 fL (80-100); MEAN CORPUSCULAR HEMOGLOBIN 24.8 pg (25-34); MEAN PLATELET VOLUME 10.2 fL (7.4-10.4); MONO % 11.6 %; PLATELET COUNT 219 K/uL (130-400); RED BLOOD COUNT 3.95 M/uL (4.2-5.4); WHITE BLOOD COUNT 8.88 K/uL (4.8-10.8)
[2016-09-29 06:37] LABS: ANISOCYTOSIS PRESENT; COMPLETE YES
[2016-09-29 06:45] LABS: BUN/CREATININE RATIO 26.3 (10-20); CALCIUM 9.3 mg/dl (8.5-10.1); CREATININE 1.9 mg/dl (0.60-1.20); POTASSIUM 4.8 mmol/L (3.5-5.1)
[2016-09-29 07:13] VITALS: BP 140/61; PULSE 67; TEMP 36.8; O2SAT 99
[2016-09-29] MEDS: INSULIN ASPART 100 UNITS/ML 3 ML PEN SC SCH ×4 (09:56→20:57)
[2016-09-29] MEDS: CEFUROXIME AXETIL 500 MG TAB PO SCH (09:58)
[2016-09-29] MEDS: NADOLOL 40 MG TAB PO SCH (09:59)
[2016-09-29] MEDS: FERROUS SULFATE 325 MG TAB PO SCH (09:59)
[2016-09-29] MEDS: POLYETHYLENE (MIRALAX) 17 GM PACK PO SCH (09:59)
[2016-09-29] MEDS: VENLAFAXINE HCL 50 MG TAB PO SCH (09:59)
[2016-09-29] MEDS: INSULIN GLARGINE SOLOSTAR 100 UNITS/ML 3 ML PEN SC SCH ×2 (10:00→20:58)
[2016-09-29] MEDS: RIFAXIMIN TAB 550 MG TAB PO SCH ×2 (10:00→20:54)
[2016-09-29] MEDS: PANTOprazole SOD 40 MG TAB PO SCH ×2 (10:00→20:53)
[2016-09-29] MEDS: ASPIRIN 81 MG ECTAB PO SCH (10:01)
[2016-09-29] MEDS: AZITHROMYCIN 250 MG TAB PO SCH (10:01)
[2016-09-29] MEDS: DOCUSATE SODIUM 100 MG CAP PO SCH ×2 (10:02→20:52)
[2016-09-29] MEDS: LACTULOSE PO SCH ×3 (10:02→20:53)
[2016-09-29 15:09] VITALS: BP 140/70; PULSE 57; TEMP 36.7; O2SAT 100
[2016-09-29 16:00] VITALS: O2SAT 100
--- NOTE | 2016-09-29 17:52 | Progress Note ---
Internal Med Progress Note Date of Service: Sep 29, 2016. Provider Documentation: SUBJECTIVE: sitting on the chair says not feeling great but could not tell exactly the problem had a big bowel movement today no sob cough is same afebrile OBJECTIVE: Vital Signs-as noted below Exam: General-alert and oriented. Not in distress ENT-normal hearing Neck-no neck masses Lungs-cta b/l no wheezing bibasilar crackles present Heart-s1 and s2 heard regular no murmurs Abdomen-soft bowel sounds present nontender no distension Extremities-pedal edema present no erythema Neuro-alert and oriented moves extremities Lab data as noted below. ASSESSMENT & PLAN: Acute on chronic Diastolic CHF currently on iv lasix follow daily wts i/o holding Spironolactone for hyperkalemia Will monitor renal function closely with more aggressive diuresis. Received i v lasx initially but holding now renal function deteriorating restarting home Lasix today will monitor ANEMIA History of chronic iron deficiency anemia attributed to chronic GI blood loss from AVMs. Status post multiple endoscopic evaluations. Has required multiple transfusions. Hemoglobin 6.8 on 09/26/16 No gross GI bleeding. s/p two units prbc transfused hb 9.8today will f/u labs ALTERED MENTAL STATUS Acute hepatic encephalopathy Altered status probably multifactorial, but primarily secondary to hepatic encephalopathy. on lactulose and rifaximin presented with ammonia 149 ammonia today 70 improved will f/u labs. ARF on CKD Chronic kidney disease stage III. presented with creatinine 1.9. baseline around 1.5 to 1.7 cr 1.9 today now held iv diuretics restarting home po Lasix 40mg bid f/u labs in am Stable conditions: CORONARY ARTERY DISEASE No anginal symptoms. on low-dose aspirin every other day and nadolol. PAROXYSMAL ATRIAL FIB Sinus bradycardia at the time of admission. On nadolol. No anticoagulants due to chronic GI blood loss and associated anemia. CHRONIC HYPOXIC + HYPERCAPNIC RESPIRATORY FAILURE / COPD / SLEEP APNEA Does not tolerate CPAP or BiPAP. saturating ok on 3lts GERD Continue PPI. CIRRHOSIS Attributed to GRAHAM. Associated portal hypertension. Not coagulopathic. diuretics, lactulose, rifaximin as above. Not much ascites on ultrasound Hyperkalemia k 5.2 holding Aldactone renal diet received Kayexalate resolved DM TYPE 2 Generally well-controlled. Employment A1c on 07/15/16 was 6.8. on Lantus and ISS will monitor GENERAL DEBILITATION PT/OT evaluations when able to tolerate. VTE PROPHYLAXIS No anticoagulants due to chronic GI blood loss. SCDs. RESUSCITATION STATUS Level 1 as per H and P but no heroic measures if no chance of recovery DISPOSITION Monitor in medical floor pt/ot prior to discharge social service to help with d/c planning Vital Signs: Date Time Temp Pulse Resp B/P (MAP) Pulse Ox O2 Delivery O2 Flow Rate FiO2 09/29/16 15:09 36.7 57 18 140/70 (93) 100 3.0 09/29/16 13:33 Nasal Cannula 3.0 09/29/16 07:13 36.8 67 20 140/61 (87) 99 Nasal Cannula 3.0 09/29/16 00:00 Nasal Cannula 3.0 09/28/16 23:43 36.6 61 20 123/69 (87) 100 Room Air 09/28/16 20:00 Nasal Cannula 3.0 Lab Results: Results Past 24 Hours Test 09/28/16 20:13 09/29/16 06:01 09/29/16 07:38 09/29/16 11:53 Range/Units Bedside Glucose 147 109 230 70-90 mg/dl White Blood Count 8.88 4.8-10.8 K/uL Red Blood Count 3.95 4.2-5.4 M/uL Hemoglobin 9.8 12.0-16.0 g/dL Hematocrit 33.8 37-47 % Mean Corpuscular Volume 85.6 80-100 fL Mean Corpuscular Hemoglobin 24.8 25-34 pg Mean Corpuscular Hemoglobin Concent 29.0 32-36 g/dl Platelet Count 219 130-400 K/uL Mean Platelet Volume 10.2 7.4-10.4 fL Neutrophils (%) (Auto) 73.0 % Lymphocytes (%) (Auto) 14.2 % Monocytes (%) (Auto) 11.6 % Eosinophils (%) (Auto) 0.6 % Basophils (%) (Auto) 0.5 % Neutrophils # (Auto) 6.49 1.4-6.5 K/uL Lymphocytes # (Auto) 1.26 1.2-3.4 K/uL Monocytes # (Auto) 1.03 0.11-0.59 K/uL Eosinophils # (Auto) 0.05 0-0.5 K/uL Basophils # (Auto) 0.04 0-0.2 K/uL RDW Standard Deviation 62.8 36.4-46.3 fL RDW Coefficient of Variation 20.3 11.5-14.5 % Immature Granulocyte % (Auto) 0.1 % Immature Granulocyte # (Auto) 0.01 0.00-0.02 K/uL Basophilic Stippling 1+ Anisocytosis PRESENT Sodium Level 141 136-145 mmol/L Potassium Level 4.8 3.5-5.1 mmol/L Chloride Level 98 98-107 mmol/L Carbon Dioxide Level 38 21-32 mmol/L Anion Gap 5.0 3-11 mmol/L Blood Urea Nitrogen 50 7-18 mg/dl Creatinine 1.90 0.60-1.20 mg/dl Est Creatinine Clear Calc Drug Dose 30.3 ml/min Estimated GFR () 29.8 Estimated GFR (Non- 25.7 BUN/Creatinine Ratio 26.3 10-20 Random Glucose 125 70-99 mg/dl Calcium Level 9.3 8.5-10.1 mg/dl Ammonia 71.0 11-32 umol/L Test 09/29/16 16:02 Range/Units Bedside Glucose 177 70-90 mg/dl
[2016-09-29] MEDS: ATORVASTATIN 40 MG TAB PO SCH (20:53)
[2016-09-29] MEDS: LATANOPROST 0.005% OP SOLN 2.5 ML BTL OPB SCH (20:53)
[2016-09-29] MEDS: FUROSEMIDE 40 MG TAB PO SCH (20:54)
[2016-09-29 23:18] VITALS: BP 123/57; PULSE 60; TEMP 36.7; O2SAT 99
[2016-09-30] MEDS: LEVOTHYROXINE 112 MCG TAB PO SCH (06:06)
[2016-09-30 06:13] LABS: BASO % 0.4 %; BASO ABS # 0.04 K/uL (0-0.2); EOS % 0.4 %; HEMATOCRIT 32.4 % (37-47); IG% 0.1 %; LYMPH % 12.5 %; LYMPH ABS # 1.18 K/uL (1.2-3.4); MEAN CELL VOLUME 85.9 fL (80-100); MEAN CORPUSCULAR HEMOGLOBIN 25.2 pg (25-34); MEAN CORPUSCULAR HGB CONC 29.3 g/dl (32-36); MEAN PLATELET VOLUME 10.8 fL (7.4-10.4); MONO % 13.1 %; NEUT % 73.5 %; PLATELET COUNT 220 K/uL (130-400); RED BLOOD COUNT 3.77 M/uL (4.2-5.4); WHITE BLOOD COUNT 9.44 K/uL (4.8-10.8)
[2016-09-30 06:51] LABS: ANISOCYTOSIS PRESENT; COMPLETE YES; OVALOCYTES 1+
[2016-09-30 07:02] VITALS: BP 147/66; PULSE 63; TEMP 36.6; O2SAT 100
[2016-09-30 07:19] LABS: BLOOD UREA NITROGEN 50 mg/dl (7-18); BUN/CREATININE RATIO 26.3 (10-20); CALCIUM 9.6 mg/dl (8.5-10.1); CARBON DIOXIDE 39 mmol/L (21-32); CHLORIDE 97 mmol/L (98-107); GLUCOSE 162 mg/dl (70-99); SODIUM 138 mmol/L (136-145)
[2016-09-30] MEDS: INSULIN ASPART 100 UNITS/ML 3 ML PEN SC SCH ×4 (08:55→21:29)
[2016-09-30] MEDS: INSULIN GLARGINE SOLOSTAR 100 UNITS/ML 3 ML PEN SC SCH ×2 (08:55→21:30)
[2016-09-30] MEDS: CEFUROXIME AXETIL 500 MG TAB PO SCH (08:57)
[2016-09-30] MEDS: VENLAFAXINE HCL 50 MG TAB PO SCH (08:58)
[2016-09-30] MEDS: DOCUSATE SODIUM 100 MG CAP PO SCH ×2 (08:58→20:00)
[2016-09-30] MEDS: NADOLOL 40 MG TAB PO SCH (08:58)
[2016-09-30] MEDS: PANTOprazole SOD 40 MG TAB PO SCH ×2 (08:59→20:32)
[2016-09-30] MEDS: FERROUS SULFATE 325 MG TAB PO SCH (08:59)
[2016-09-30] MEDS: RIFAXIMIN TAB 550 MG TAB PO SCH ×2 (08:59→20:32)
[2016-09-30] MEDS: AZITHROMYCIN 250 MG TAB PO SCH (09:00)
[2016-09-30] MEDS: FUROSEMIDE 40 MG TAB PO SCH ×2 (09:00→18:08)
[2016-09-30] MEDS: LACTULOSE PO SCH ×2 (09:01→20:33)
[2016-09-30] MEDS: POLYETHYLENE (MIRALAX) 17 GM PACK PO SCH (09:02)
--- NOTE | 2016-09-30 15:36 | Progress Note ---
Internal Med Progress Note Date of Service: Sep 30, 2016. Provider Documentation: SUBJECTIVE: sitting on the chair comfortable afebrile eating ok feeling better than yesterday had large bowel movement today denies nausea no chest pain OBJECTIVE: Vital Signs-as noted below Exam: General-alert and oriented. Not in distress ENT-normal hearing Neck-no neck masses Lungs-cta b/l no wheezing bibasilar crackles present Heart-s1 and s2 heard regular no murmurs Abdomen-soft bowel sounds present nontender no distension Extremities-pedal edema present no erythema Neuro-alert and oriented moves extremities Lab data as noted below. ASSESSMENT & PLAN: 75F PRESENTS WITH ACUTE CHF,ANEMIA AND HEPATIC ENCEPHALOPATHY.iMPROVING. AWAIT PT/OT. MAY NEED PLACEMENT Acute on chronic Diastolic CHF received iv Lasix follow daily weights. weight on presentation 95.6 and today weight 93.9 i/o holding Spironolactone for hyperkalemia Will monitor renal function closely with more aggressive diuresis. Received i v Lasix initially but holding now renal function deteriorating restarted home Lasix yesterday will monitor ANEMIA History of chronic iron deficiency anemia attributed to chronic GI blood loss from AVMs. Status post multiple endoscopic evaluations. Has required multiple transfusions. Hemoglobin 6.8 on 09/26/16 No gross GI bleeding. s/p two units prbc transfused hb 9.5today will f/u labs ALTERED MENTAL STATUS Acute hepatic encephalopathy Altered status probably multifactorial, but primarily secondary to hepatic encephalopathy. on lactulose and rifaximin presented with ammonia 149 ammonia improved Mental status improved ARF on CKD Chronic kidney disease stage III. presented with creatinine 1.9. baseline around 1.5 to 1.7 cr 1.9 today now held iv diuretics restarted home po Lasix 40mg bid f/u labs in am CORONARY ARTERY DISEASE No anginal symptoms. on low-dose aspirin every other day and nadolol. PAROXYSMAL ATRIAL FIB Sinus bradycardia at the time of admission. On nadolol. No anticoagulants due to chronic GI blood loss and associated anemia. CHRONIC HYPOXIC + HYPERCAPNIC RESPIRATORY FAILURE / COPD / SLEEP APNEA Does not tolerate CPAP or BiPAP. saturating ok on 3lts GERD Continue PPI. CIRRHOSIS Attributed to GRAHAM. Associated portal hypertension. Not coagulopathic. diuretics, lactulose, rifaximin as above. Not much ascites on ultrasound Hyperkalemia k 5.2 holding Aldactone renal diet received Kayexalate resolved DM TYPE 2 Generally well-controlled. Employment A1c on 07/15/16 was 6.8. on Lantus and ISS will monitor GENERAL DEBILITATION PT/OT evaluations when able to tolerate. VTE PROPHYLAXIS No anticoagulants due to chronic GI blood loss. SCDs. RESUSCITATION STATUS Level 1 as per H and P but no heroic measures if no chance of recovery DISPOSITION Monitor in medical floor pt/ot prior to discharge social service to help with d/c planning Vital Signs: Date Time Temp Pulse Resp B/P (MAP) Pulse Ox O2 Delivery O2 Flow Rate FiO2 09/30/16 16:07 36.7 59 18 124/64 (84) 100 09/30/16 16:00 Nasal Cannula 3.0 09/30/16 08:00 Nasal Cannula 3.0 09/30/16 07:02 36.6 63 20 147/66 (93) 100 Nasal Cannula 2.0 09/30/16 00:42 Nasal Cannula 3.0 09/29/16 23:18 36.7 60 18 123/57 (79) 99 Nasal Cannula 3.0 Lab Results: Results Past 24 Hours Test 09/29/16 20:18 09/30/16 05:50 09/30/16 07:27 09/30/16 07:35 Range/Units Bedside Glucose 223 180 70-90 mg/dl White Blood Count 9.44 4.8-10.8 K/uL Red Blood Count 3.77 4.2-5.4 M/uL Hemoglobin 9.5 12.0-16.0 g/dL Hematocrit 32.4 37-47 % Mean Corpuscular Volume 85.9 80-100 fL Mean Corpuscular Hemoglobin 25.2 25-34 pg Mean Corpuscular Hemoglobin Concent 29.3 32-36 g/dl Platelet Count 220 130-400 K/uL Mean Platelet Volume 10.8 7.4-10.4 fL Neutrophils (%) (Auto) 73.5 % Lymphocytes (%) (Auto) 12.5 % Monocytes (%) (Auto) 13.1 % Eosinophils (%) (Auto) 0.4 % Basophils (%) (Auto) 0.4 % Neutrophils # (Auto) 6.93 1.4-6.5 K/uL Lymphocytes # (Auto) 1.18 1.2-3.4 K/uL Monocytes # (Auto) 1.24 0.11-0.59 K/uL Eosinophils # (Auto) 0.04 0-0.5 K/uL Basophils # (Auto) 0.04 0-0.2 K/uL RDW Standard Deviation 63.2 36.4-46.3 fL RDW Coefficient of Variation 20.6 11.5-14.5 % Immature Granulocyte % (Auto) 0.1 % Immature Granulocyte # (Auto) 0.01 0.00-0.02 K/uL Anisocytosis PRESENT Ovalocytes 1+ Sodium Level 138 136-145 mmol/L Potassium Level 4.9 3.5-5.1 mmol/L Chloride Level 97 98-107 mmol/L Carbon Dioxide Level 39 21-32 mmol/L Anion Gap 2.0 3-11 mmol/L Blood Urea Nitrogen 50 7-18 mg/dl Creatinine 1.90 0.60-1.20 mg/dl Est Creatinine Clear Calc Drug Dose 30.4 ml/min Estimated GFR () 29.8 Estimated GFR (Non- 25.7 BUN/Creatinine Ratio 26.3 10-20 Random Glucose 162 70-99 mg/dl Calcium Level 9.6 8.5-10.1 mg/dl Test 09/30/16 12:01 09/30/16 16:18 Range/Units Bedside Glucose 176 191 70-90 mg/dl
[2016-09-30 16:07] VITALS: BP 124/64; PULSE 59; TEMP 36.7; O2SAT 100
[2016-09-30] MEDS: ATORVASTATIN 40 MG TAB PO SCH (20:31)
[2016-09-30] MEDS: LATANOPROST 0.005% OP SOLN 2.5 ML BTL OPB SCH (20:32)
[2016-09-30 23:49] VITALS: BP 125/45; PULSE 58; TEMP 36.3; O2SAT 100
[2016-10-01] MEDS: LEVOTHYROXINE 112 MCG TAB PO SCH (05:46)
[2016-10-01 06:06] LABS: BASO % 0.2 %; BASO ABS # 0.02 K/uL (0-0.2); EOS % 1.4 %; HEMATOCRIT 35.9 % (37-47); IG% 0.1 %; LYMPH % 14.9 %; MEAN CELL VOLUME 86.9 fL (80-100); MEAN CORPUSCULAR HEMOGLOBIN 25.4 pg (25-34); MEAN CORPUSCULAR HGB CONC 29.2 g/dl (32-36); MEAN PLATELET VOLUME 10.6 fL (7.4-10.4); MONO % 14.7 %; NEUT % 68.7 %; PLATELET COUNT 208 K/uL (130-400); RED BLOOD COUNT 4.13 M/uL (4.2-5.4); WHITE BLOOD COUNT 10.04 K/uL (4.8-10.8)
[2016-10-01 06:38] LABS: ANISOCYTOSIS PRESENT; COMPLETE YES
[2016-10-01 06:42] LABS: BUN/CREATININE RATIO 26.8 (10-20); CREATININE 1.9 mg/dl (0.60-1.20); POTASSIUM 4.9 mmol/L (3.5-5.1)
[2016-10-01 07:15] LABS: CALCIUM 9.6 mg/dl (8.5-10.1)
[2016-10-01] MEDS: DOCUSATE SODIUM 100 MG CAP PO SCH ×2 (08:00→20:32)
[2016-10-01 08:10] VITALS: BP 114/61; PULSE 58; TEMP 36.3; O2SAT 99
[2016-10-01] MEDS: CEFUROXIME AXETIL 500 MG TAB PO SCH (08:11)
[2016-10-01] MEDS: FERROUS SULFATE 325 MG TAB PO SCH (08:12)
[2016-10-01] MEDS: NADOLOL 40 MG TAB PO SCH (08:12)
[2016-10-01] MEDS: VENLAFAXINE HCL 50 MG TAB PO SCH (08:12)
[2016-10-01] MEDS: PANTOprazole SOD 40 MG TAB PO SCH ×2 (08:13→20:33)
[2016-10-01] MEDS: AZITHROMYCIN 250 MG TAB PO SCH (08:13)
[2016-10-01] MEDS: RIFAXIMIN TAB 550 MG TAB PO SCH ×2 (08:13→20:33)
[2016-10-01] MEDS: FUROSEMIDE 40 MG TAB PO SCH ×2 (08:14→17:22)
[2016-10-01] MEDS: LACTULOSE PO SCH ×2 (08:16→20:50)
[2016-10-01] MEDS: INSULIN ASPART 100 UNITS/ML 3 ML PEN SC SCH ×4 (09:11→20:42)
[2016-10-01] MEDS: INSULIN GLARGINE SOLOSTAR 100 UNITS/ML 3 ML PEN SC SCH ×2 (09:11→20:35)
[2016-10-01] MEDS: POLYETHYLENE (MIRALAX) 17 GM PACK PO SCH (10:30)
--- NOTE | 2016-10-01 14:38 | DIAGNOSTIC IMAGING REPORT ---
CHEST ONE VIEW PORTABLE CLINICAL HISTORY: f/u CHF congestive heart failure COMPARISON STUDY: 09/28/2016 FINDINGS: Findings of congestive heart failure. Left and to lesser extent right pleural effusion. No significant change radiographically from the prior study. IMPRESSION: Congestive failure essentially unchanged from the prior study. Electronically signed by: Steve Caicedo M.D. 10/01/2016 2:36 PM Dictated Date/Time: 10/01/2016 2:35 PM
[2016-10-01 16:13] VITALS: BP 124/63; PULSE 57; TEMP 36.5; O2SAT 100
[2016-10-01] MEDS: ATORVASTATIN 40 MG TAB PO SCH (20:45)
[2016-10-01] MEDS: LATANOPROST 0.005% OP SOLN 2.5 ML BTL OPB SCH (20:46)
--- NOTE | 2016-10-01 22:16 | Progress Note ---
Medicine Progress Note Date & Time of Visit: Oct 01, 2016 at 13:50 . Subjective No fever. No cough. Dyspneic on exertion. No chest pain. No nausea or vomiting. Soft stools with lactulose. Still has Rodas cath. . Objective Last 8 Hrs Date Time Temp Pulse Resp B/P (MAP) Pulse Ox O2 Delivery O2 Flow Rate FiO2 10/01/16 21:09 Nasal Cannula 2.0 10/01/16 16:13 36.5 57 22 124/63 (83) 100 Room Air 3.0 10/01/16 15:30 Nasal Cannula 2.0 Physical Exam: General- no distress Eyes- anicteric Neck- + JVD Lungs- basilar rales Heart- RRR Abdomen- + BS, soft, nontender Extremities- 1+ pretibial edema; chronic venous stasis changes Neuro- alert, mild asterixis . Laboratory Results: Last 24 Hours Test 10/01/16 05:30 10/01/16 07:52 10/01/16 11:10 10/01/16 16:42 White Blood Count 10.04 K/uL Red Blood Count 4.13 M/uL Hemoglobin 10.5 g/dL Hematocrit 35.9 % Mean Corpuscular Volume 86.9 fL Mean Corpuscular Hemoglobin 25.4 pg Mean Corpuscular Hemoglobin Concent 29.2 g/dl Platelet Count 208 K/uL Mean Platelet Volume 10.6 fL Neutrophils (%) (Auto) 68.7 % Lymphocytes (%) (Auto) 14.9 % Monocytes (%) (Auto) 14.7 % Eosinophils (%) (Auto) 1.4 % Basophils (%) (Auto) 0.2 % Neutrophils # (Auto) 6.89 K/uL Lymphocytes # (Auto) 1.50 K/uL Monocytes # (Auto) 1.48 K/uL Eosinophils # (Auto) 0.14 K/uL Basophils # (Auto) 0.02 K/uL RDW Standard Deviation 63.8 fL RDW Coefficient of Variation 20.7 % Immature Granulocyte % (Auto) 0.1 % Immature Granulocyte # (Auto) 0.01 K/uL Basophilic Stippling 1+ Anisocytosis PRESENT Sodium Level 140 mmol/L Potassium Level 4.9 mmol/L Chloride Level 98 mmol/L Carbon Dioxide Level 39 mmol/L Anion Gap 3.0 mmol/L Blood Urea Nitrogen 51 mg/dl Creatinine 1.90 mg/dl Est Creatinine Clear Calc Drug Dose 29.9 ml/min Estimated GFR () 29.8 Estimated GFR (Non- 25.7 BUN/Creatinine Ratio 26.8 Random Glucose 181 mg/dl Calcium Level 9.6 mg/dl Bedside Glucose 149 mg/dl 211 mg/dl 208 mg/dl Test 10/01/16 20:31 Bedside Glucose 188 mg/dl Assessment & Plan CHF Chest x-ray on admission showed cardiomegaly and pulmonary vascular congestion. History of left ventricular diastolic heart failure based on previous echo. Acute on chronic left ventricular diastolic heart failure. No need to repeat echo at this time. Received IV furosemide. Spironolactone held due to hyperkalemia. Check f/u chest x-ray. ANEMIA History of chronic iron deficiency anemia attributed to chronic GI blood loss from AVMs. Status post multiple endoscopic evaluations. Has required multiple transfusions. Admission hemoglobin was 7.4. No gross GI bleeding. Seems to do best maintaining hemoglobin greater than 8.5. Received 2 units pRBC's. Hgb today = 10.5. Continue Fe. ALTERED MENTAL STATUS Presented with worsening confusion, probably secondary to acute on chronic hepatic encephalopathy. US showed small amount of ascitic fluid- doubt SBP. Continue lactulose, rifaximin. CORONARY ARTERY DISEASE No anginal symptoms. Continue low-dose aspirin every other day and nadolol. PAROXYSMAL ATRIAL FIB Sinus bradycardia at the time of admission. Continue nadolol. No anticoagulants due to chronic GI blood loss and associated anemia. CHRONIC HYPOXIC + HYPERCAPNIC RESPIRATORY FAILURE / COPD / SLEEP APNEA Does not tolerate CPAP or BiPAP. Continue supplemental oxygen, titrating flow rate to maintain sats in low 90s. GERD Continue PPI. CIRRHOSIS Attributed to GRAHAM. Associated portal hypertension. Not coagulopathic. Continue diuretics, lactulose, rifaximin. CKD Chronic kidney disease stage III. Serum creatinine on admission 1.9. Tends be volume sensitive. Need to monitor renal function closely diuresis. Creatinine today = 1.9. DM TYPE 2 Generally well-controlled. Recent A1c on 07/15/16 was 6.8. Hypoglycemic in the ED, poor oral intake day of admission. FBS today = 149. Titrate Lantus / NovoLog. GENERAL DEBILITATION PT/OT. VTE PROPHYLAXIS No anticoagulants due to chronic GI blood loss. SCDs. Ambulate as able. RESUSCITATION STATUS Full code as noted in admission H&P. DISPOSITION Discharge disposition to be determined; may need skilled care. Family Medicine follow-up with Dr. Yann Gutierrez. GI follow-up with Dr. Trinh. Cardiology follow-up with Eva Singleton PA-C. Nephrology follow-up with Dr. Jeffers. . Current Inpatient Medications: Current Inpatient Medications Medications (Trade) Dose Ordered Sig/Virgil Route Start Time Stop Time Status Last Admin Dose Admin Aspirin (Ecotrin Tab) 81 mg MoWeFr@0900 PO 09/27/16 09:00 10/27/16 08:59 09/29/16 10:01 81 MG Atorvastatin Calcium (Lipitor Tab) 80 mg QPM PO 09/25/16 21:00 10/25/16 20:59 10/01/16 20:45 80 MG Docusate Sodium (coLACE CAP) 100 mg BID PO 09/25/16 21:00 10/25/16 20:59 10/01/16 20:32 100 MG Ferrous Sulfate (Feosol Tab) 325 mg DAILY PO 09/26/16 09:00 10/26/16 08:59 10/01/16 08:12 325 MG Insulin Glargine (Lantus Solostar Pen) 30 unit BID SC 09/25/16 21:00 10/25/16 20:59 10/01/16 20:35 30 UNIT Latanoprost (Xalatan Oph Soln) 1 drops HS OPB 09/25/16 21:00 10/25/16 20:59 10/01/16 20:46 1 DROPS Levothyroxine Sodium (Synthroid Tab) 112 mcg DAILYBB PO 09/26/16 06:00 10/26/16 06:59 10/01/16 05:46 112 MCG Nadolol (Corgard Tab) 40 mg QAM PO 09/26/16 09:00 10/26/16 08:59 10/01/16 08:12 40 MG Pantoprazole Sodium (Protonix Tab) 40 mg BID PO 09/25/16 21:00 10/25/16 20:59 10/01/16 20:33 40 MG Rifaximin (Xifaxan Tab) 550 mg BID PO 09/25/16 21:00 10/25/16 20:59 10/01/16 20:33 550 MG Spironolactone (Aldactone Tab) 100 mg QAM PO 09/26/16 09:00 10/26/16 08:59 Future Hold 09/26/16 08:23 100 MG Venlafaxine HCl (effeXOR TAB) 100 mg DAILY PO 09/26/16 09:00 10/26/16 08:59 10/01/16 08:12 100 MG Polyethylene (Miralax Powder Packet) 17 gm DAILY PO 09/26/16 09:00 10/26/16 08:59 09/30/16 09:02 17 GM Albuterol (Ventolin Hfa Inhaler) 2 puffs Q4H PRN INH 09/25/16 18:00 10/25/16 17:59 Insulin Aspart (novoLOG ASPART) ACHS SC 09/25/16 21:00 10/25/16 20:59 10/01/16 20:42 1 UNITS Glucose (Glucose 40% Gel) 15-30 GRAMS 15 GRAMS... UD PRN PO 09/25/16 20:00 10/25/16 19:59 Glucose (Glucose Chew Tab) 4-8 Tablets 4 Tabl... UD PRN PO 09/25/16 20:00 10/25/16 19:59 Dextrose (Dextrose 50% 50ML Syringe) 25-50ML OF 50% DW IV FOR... UD PRN IV 09/25/16 20:00 10/25/16 19:59 Glucagon (Glucagon Inj) 1 mg UD PRN SQ 09/25/16 20:00 10/25/16 19:59 Lactulose (Kristalose Powder Packet) 20 gm BID PO 09/26/16 09:00 10/26/16 08:59 10/01/16 20:50 20 GM Albuterol/ Ipratropium (Duoneb) 3 ml Q2H PRN INH 09/26/16 07:00 10/26/16 06:59 Tramadol HCl (Ultram Tab) 25 mg Q6 PRN PO 09/26/16 11:15 10/26/16 11:14 09/26/16 23:14 25 MG Cefuroxime Axetil (Ceftin Tab) 500 mg DAILY PO 09/28/16 09:30 10/05/16 09:29 10/01/16 08:11 500 MG Azithromycin (Zithromax Tab) 500 mg QAM PO 09/29/16 08:00 10/06/16 08:59 10/01/16 08:13 500 MG Furosemide (Lasix Tab) 40 mg BID17 PO 09/29/16 20:00 10/29/16 19:59 10/01/16 17:22 40 MG
[2016-10-01 22:37] VITALS: PULSE 68; O2SAT 96
[2016-10-01 23:06] VITALS: BP 131/67; PULSE 62; TEMP 36.6; O2SAT 98
[2016-10-02] MEDS: LEVOTHYROXINE 112 MCG TAB PO SCH (06:09)
[2016-10-02] MEDS ORDERED: SPIRONOLACTONE 25 MG TAB PO SCH (08:00)
[2016-10-02] MEDS: POLYETHYLENE (MIRALAX) 17 GM PACK PO SCH (08:00)
[2016-10-02] MEDS: DOCUSATE SODIUM 100 MG CAP PO SCH ×2 (08:00→20:07)
[2016-10-02 08:02] VITALS: BP 124/58; PULSE 47; TEMP 36.8; O2SAT 100
[2016-10-02 08:18] VITALS: PULSE 63
[2016-10-02] MEDS: CEFUROXIME AXETIL 500 MG TAB PO SCH (08:20)
[2016-10-02] MEDS: VENLAFAXINE HCL 50 MG TAB PO SCH (08:21)
[2016-10-02] MEDS: PANTOprazole SOD 40 MG TAB PO SCH ×2 (08:21→20:08)
[2016-10-02] MEDS: NADOLOL 40 MG TAB PO SCH (08:21)
[2016-10-02] MEDS: AZITHROMYCIN 250 MG TAB PO SCH (08:22)
[2016-10-02] MEDS: RIFAXIMIN TAB 550 MG TAB PO SCH ×2 (08:22→20:08)
[2016-10-02] MEDS: FUROSEMIDE INJ 40 MG in SYRINGE 0 ML IV SCH ×2 (08:23→15:03)
[2016-10-02] MEDS: ASPIRIN 81 MG ECTAB PO SCH (08:25)
[2016-10-02] MEDS: LACTULOSE PO SCH ×2 (08:31→20:06)
[2016-10-02] MEDS: INSULIN GLARGINE SOLOSTAR 100 UNITS/ML 3 ML PEN SC SCH ×2 (08:36→20:13)
[2016-10-02] MEDS: INSULIN ASPART 100 UNITS/ML 3 ML PEN SC SCH ×4 (08:36→20:08)
[2016-10-02 11:36] VITALS: BP 124/69; PULSE 80; O2SAT 99
[2016-10-02] MEDS: FERROUS SULFATE 325 MG TAB PO SCH (13:18)
[2016-10-02 15:01] VITALS: BP 132/61; PULSE 58; TEMP 36.6; O2SAT 100
[2016-10-02] MEDS: ONDANSETRON INJ 2 MG/ML 2 ML VIAL IV PRN (18:16)
[2016-10-02] MEDS: ATORVASTATIN 40 MG TAB PO SCH (20:07)
[2016-10-02] MEDS: LATANOPROST 0.005% OP SOLN 2.5 ML BTL OPB SCH (20:08)
--- NOTE | 2016-10-02 22:22 | Progress Note ---
Medicine Progress Note Date & Time of Visit: Oct 02, 2016 at 10:45 . Subjective Tires easily. No fever. No cough. No dyspnea at rest. No chest pain. No nausea or vomiting. No melena or hematochezia. Still has Rodas catheter. . Objective Last 8 Hrs Date Time Temp Pulse Resp B/P (MAP) Pulse Ox O2 Delivery O2 Flow Rate FiO2 10/02/16 20:05 Nasal Cannula 3.0 10/02/16 16:00 Nasal Cannula 3.0 10/02/16 15:01 36.6 58 18 132/61 (84) 100 Physical Exam: General- no distress Eyes- anicteric Neck- + JVD Lungs- few basilar rales Heart- RRR Abdomen- + BS, soft, nontender Extremities- 1+ pretibial edema; chronic venous stasis changes Neuro- alert, oriented, mild asterixis . Laboratory Results: Last 24 Hours Test 10/02/16 07:51 10/02/16 11:12 10/02/16 15:56 10/02/16 20:05 Bedside Glucose 142 mg/dl 187 mg/dl 165 mg/dl 152 mg/dl Assessment & Plan CHF Chest x-ray on admission showed cardiomegaly and pulmonary vascular congestion. History of left ventricular diastolic heart failure based on previous echo. Acute on chronic left ventricular diastolic heart failure. No need to repeat echo at this time. Chest x-ray 10/01 showed persistent vascular congestion. Continue IV furosemide. Spironolactone held due to hyperkalemia- resumed at reduced dose. ANEMIA History of chronic iron deficiency anemia attributed to chronic GI blood loss from AVMs. Status post multiple endoscopic evaluations. Has required multiple transfusions. Admission hemoglobin was 7.4. No gross GI bleeding. Seems to do best maintaining hemoglobin greater than 8.5. Received 2 units pRBC's. Hgb 10/01 = 10.5. Continue Fe. ALTERED MENTAL STATUS Presented with worsening confusion, probably secondary to acute on chronic hepatic encephalopathy. US showed small amount of ascitic fluid- doubt SBP. Continue lactulose, rifaximin. CORONARY ARTERY DISEASE No anginal symptoms. Continue low-dose aspirin every other day and nadolol. PAROXYSMAL ATRIAL FIB Sinus bradycardia at the time of admission. Continue nadolol. No anticoagulants due to chronic GI blood loss and associated anemia. CHRONIC HYPOXIC + HYPERCAPNIC RESPIRATORY FAILURE / COPD / SLEEP APNEA Does not tolerate CPAP or BiPAP. Continue supplemental oxygen, titrating flow rate to maintain sats in low 90s. GERD Continue PPI. CIRRHOSIS Attributed to GRAHAM. Associated portal hypertension. Not coagulopathic. Continue diuretics, lactulose, rifaximin. CKD Chronic kidney disease stage III. Serum creatinine on admission 1.9. Tends be volume sensitive. Need to monitor renal function closely diuresis. Creatinine 10/01 = 1.9. DM TYPE 2 Generally well-controlled. Recent A1c on 07/15/16 was 6.8. Hypoglycemic in the ED, poor oral intake day of admission. FBS today = 142. Titrate Lantus / NovoLog. GENERAL DEBILITATION PT/OT. VTE PROPHYLAXIS No anticoagulants due to chronic GI blood loss. SCDs. Ambulate as able. RESUSCITATION STATUS Full code as noted in admission H&P. DISPOSITION Discharge disposition to be determined; may need skilled care. Family Medicine follow-up with Dr. Yann Gutierrez. GI follow-up with Dr. Trinh. Cardiology follow-up with Eva Singleton PA-C. Nephrology follow-up with Dr. Jeffers. . Current Inpatient Medications: Current Inpatient Medications Medications (Trade) Dose Ordered Sig/Virgil Route Start Time Stop Time Status Last Admin Dose Admin Aspirin (Ecotrin Tab) 81 mg MoWeFr@0900 PO 09/27/16 09:00 10/27/16 08:59 10/02/16 08:25 81 MG Atorvastatin Calcium (Lipitor Tab) 80 mg QPM PO 09/25/16 21:00 10/25/16 20:59 10/02/16 20:07 80 MG Docusate Sodium (coLACE CAP) 100 mg BID PO 09/25/16 21:00 10/25/16 20:59 10/02/16 20:07 100 MG Insulin Glargine (Lantus Solostar Pen) 30 unit BID SC 09/25/16 21:00 10/25/16 20:59 10/02/16 20:13 30 UNIT Latanoprost (Xalatan Oph Soln) 1 drops HS OPB 09/25/16 21:00 10/25/16 20:59 10/02/16 20:08 1 DROPS Levothyroxine Sodium (Synthroid Tab) 112 mcg DAILYBB PO 09/26/16 06:00 10/26/16 06:59 10/02/16 06:09 112 MCG Nadolol (Corgard Tab) 40 mg QAM PO 09/26/16 09:00 10/26/16 08:59 10/02/16 08:21 40 MG Pantoprazole Sodium (Protonix Tab) 40 mg BID PO 09/25/16 21:00 10/25/16 20:59 10/02/16 20:08 40 MG Rifaximin (Xifaxan Tab) 550 mg BID PO 09/25/16 21:00 10/25/16 20:59 10/02/16 20:08 550 MG Venlafaxine HCl (effeXOR TAB) 100 mg DAILY PO 09/26/16 09:00 10/26/16 08:59 10/02/16 08:21 100 MG Polyethylene (Miralax Powder Packet) 17 gm DAILY PO 09/26/16 09:00 10/26/16 08:59 09/30/16 09:02 17 GM Albuterol (Ventolin Hfa Inhaler) 2 puffs Q4H PRN INH 09/25/16 18:00 10/25/16 17:59 Insulin Aspart (novoLOG ASPART) ACHS SC 09/25/16 21:00 10/25/16 20:59 10/02/16 13:17 2 UNITS Glucose (Glucose 40% Gel) 15-30 GRAMS 15 GRAMS... UD PRN PO 09/25/16 20:00 10/25/16 19:59 Glucose (Glucose Chew Tab) 4-8 Tablets 4 Tabl... UD PRN PO 09/25/16 20:00 10/25/16 19:59 Dextrose (Dextrose 50% 50ML Syringe) 25-50ML OF 50% DW IV FOR... UD PRN IV 09/25/16 20:00 10/25/16 19:59 Glucagon (Glucagon Inj) 1 mg UD PRN SQ 09/25/16 20:00 10/25/16 19:59 Lactulose (Kristalose Powder Packet) 20 gm BID PO 09/26/16 09:00 10/26/16 08:59 10/02/16 20:06 20 GM Albuterol/ Ipratropium (Duoneb) 3 ml Q2H PRN INH 09/26/16 07:00 10/26/16 06:59 10/01/16 22:37 3 ML Tramadol HCl (Ultram Tab) 25 mg Q6 PRN PO 09/26/16 11:15 10/26/16 11:14 09/26/16 23:14 25 MG Cefuroxime Axetil (Ceftin Tab) 500 mg DAILY PO 09/28/16 09:30 10/05/16 09:29 10/02/16 08:20 500 MG Azithromycin (Zithromax Tab) 500 mg QAM PO 09/29/16 08:00 10/06/16 08:59 10/02/16 08:22 500 MG Furosemide (Lasix Tab) 40 mg BID17 PO 09/29/16 20:00 10/29/16 19:59 Future Hold 10/01/16 17:22 40 MG Ferrous Sulfate (Feosol Tab) 325 mg DAILY@1200 PO 10/02/16 12:00 10/26/16 08:59 10/02/16 13:18 325 MG Spironolactone (Aldactone Tab) 50 mg QAM PO 10/02/16 08:00 11/01/16 07:59 10/02/16 08:29 50 MG Furosemide 40 mg/ Syringe 4 ml @ 4 mls/min BID@0900,1500 IV 10/02/16 09:00 11/01/16 08:59 10/02/16 15:03 4 MLS/MIN Ondansetron HCl (Zofran Inj) 4 mg Q6H PRN IV 10/02/16 18:00 11/01/16 17:59 10/02/16 18:16 4 MG
[2016-10-02 23:59] VITALS: BP 124/56; PULSE 66; TEMP 36.7; O2SAT 100
[2016-10-03] MEDS: LEVOTHYROXINE 112 MCG TAB PO SCH (06:23)
[2016-10-03 07:00] LABS: HEMATOCRIT 34.7 % (37-47); MEAN CELL VOLUME 88.1 fL (80-100); MEAN CORPUSCULAR HEMOGLOBIN 25.1 pg (25-34); MEAN CORPUSCULAR HGB CONC 28.5 g/dl (32-36); MEAN PLATELET VOLUME 10.8 fL (7.4-10.4); PLATELET COUNT 230 K/uL (130-400); RED BLOOD COUNT 3.94 M/uL (4.2-5.4); WHITE BLOOD COUNT 10.14 K/uL (4.8-10.8)
[2016-10-03 07:24] LABS: BUN/CREATININE RATIO 26.4 (10-20); CREATININE 1.8 mg/dl (0.60-1.20); POTASSIUM 5.3 mmol/L (3.5-5.1)
[2016-10-03 07:34] VITALS: BP 116/64; PULSE 62; TEMP 36.4; O2SAT 100
--- NOTE | 2016-10-03 08:33 | DIAGNOSTIC IMAGING REPORT ---
TWO VIEW CHEST CLINICAL HISTORY: CHF. FINDINGS: AP and lateral chest radiographs are compared to study dated 10/01/2016 and correlated with chest CT dated 08/28/2016. The AP view is degraded by patient rotation. The heart is enlarged and there is atherosclerotic calcification of the thoracic aorta. There is pulmonary vascular congestion and interstitial edema, not significantly changed from 10/01/2016. There are layering pleural effusions with bibasilar consolidation, left significantly larger than right. No pneumothorax is identified. The skeletal structures are osteopenic. The bony thorax is grossly intact. Degenerative change is noted in the thoracic spine. A left shoulder arthroplasty is in place. IMPRESSION: 1. Cardiomegaly with evidence of congestive failure and interstitial edema. This has not significant change from 09/26/2016. 2. Layering pleural effusions and bibasilar consolidation, left larger than right. This has also not significantly changed. Electronically signed by: Jose Alejandro Ramos M.D. 10/03/2016 8:32 AM Dictated Date/Time: 10/03/2016 8:31 AM
[2016-10-03] MEDS: POLYETHYLENE (MIRALAX) 17 GM PACK PO SCH (08:35)
[2016-10-03] MEDS: VENLAFAXINE HCL 50 MG TAB PO SCH (08:37)
[2016-10-03] MEDS: AZITHROMYCIN 250 MG TAB PO SCH (08:40)
[2016-10-03] MEDS: DOCUSATE SODIUM 100 MG CAP PO SCH ×2 (08:40→20:20)
[2016-10-03] MEDS: CEFUROXIME AXETIL 500 MG TAB PO SCH (08:41)
[2016-10-03] MEDS: RIFAXIMIN TAB 550 MG TAB PO SCH ×2 (08:41→20:19)
[2016-10-03] MEDS: NADOLOL 40 MG TAB PO SCH (08:41)
[2016-10-03] MEDS: PANTOprazole SOD 40 MG TAB PO SCH ×2 (08:43→20:19)
[2016-10-03] MEDS: LACTULOSE PO SCH ×2 (08:43→20:22)
[2016-10-03] MEDS: INSULIN GLARGINE SOLOSTAR 100 UNITS/ML 3 ML PEN SC SCH ×2 (08:46→20:37)
[2016-10-03] MEDS: FUROSEMIDE INJ 40 MG in SYRINGE 0 ML IV SCH ×2 (08:50→14:27)
[2016-10-03] MEDS: INSULIN ASPART 100 UNITS/ML 3 ML PEN SC SCH ×4 (08:50→20:36)
[2016-10-03] MEDS: FERROUS SULFATE 325 MG TAB PO SCH (12:26)
[2016-10-03 13:04] LABS: CALCIUM 9.9 mg/dl (8.5-10.1)
[2016-10-03 14:30] VITALS: BP 146/89
[2016-10-03 14:43] VITALS: PULSE 64; TEMP 36.6; O2SAT 99
[2016-10-03] MEDS: ATORVASTATIN 40 MG TAB PO SCH (20:20)
[2016-10-03] MEDS: LATANOPROST 0.005% OP SOLN 2.5 ML BTL OPB SCH (20:21)
[2016-10-03] MEDS: TRAMADOL HCL 50 MG TAB PO PRN (22:20)
--- NOTE | 2016-10-03 22:46 | Progress Note ---
Medicine Progress Note Date & Time of Visit: Oct 03, 2016 at 09:10 . Subjective No fever. No cough. No dyspnea at rest. No chest pain. No nausea, vomiting, diarrhea. Still has Rodas cath. . Objective Last 8 Hrs Date Time Temp Pulse Resp B/P (MAP) Pulse Ox O2 Delivery O2 Flow Rate FiO2 10/03/16 07:34 36.4 62 20 116/64 (81) 100 Nasal Cannula 3.0 Physical Exam: General- sitting in chair, no distress Eyes- anicteric Neck- + JVD Lungs- bibasilar rales Heart- RRR Abdomen- + BS, soft, nontender Extremities- 1+ pretibial edema; chronic venous stasis changes Neuro- alert, oriented . Laboratory Results: Last 24 Hours Test 10/02/16 11:12 10/02/16 15:56 10/02/16 20:05 10/03/16 06:36 Bedside Glucose 187 mg/dl 165 mg/dl 152 mg/dl White Blood Count 10.14 K/uL Red Blood Count 3.94 M/uL Hemoglobin 9.9 g/dL Hematocrit 34.7 % Mean Corpuscular Volume 88.1 fL Mean Corpuscular Hemoglobin 25.1 pg Mean Corpuscular Hemoglobin Concent 28.5 g/dl RDW Standard Deviation 66.8 fL RDW Coefficient of Variation 21.6 % Platelet Count 230 K/uL Mean Platelet Volume 10.8 fL Sodium Level 139 mmol/L Potassium Level 5.3 mmol/L Chloride Level 97 mmol/L Carbon Dioxide Level 42 mmol/L Anion Gap 0.0 mmol/L Blood Urea Nitrogen 48 mg/dl Creatinine 1.80 mg/dl Est Creatinine Clear Calc Drug Dose 30.9 ml/min Estimated GFR () 31.8 Estimated GFR (Non- 27.4 BUN/Creatinine Ratio 26.4 Random Glucose 154 mg/dl Test 10/03/16 08:03 Bedside Glucose 155 mg/dl Diagnostic Imaging: TWO VIEW CHEST IMPRESSION: 1. Cardiomegaly with evidence of congestive failure and interstitial edema. This has not significant change from 09/26/2016. 2. Layering pleural effusions and bibasilar consolidation, left larger than right. This has also not significantly changed. Electronically signed by: Jose Alejandro Ramos M.D. 10/03/2016 8:32 AM Assessment & Plan CHF Chest x-ray on admission showed cardiomegaly and pulmonary vascular congestion. History of left ventricular diastolic heart failure based on previous echo. Acute on chronic left ventricular diastolic heart failure. No need to repeat echo at this time. Chest x-ray today showspersistent vascular congestion. Continue IV furosemide. Spironolactone held due to hyperkalemia- resumed at reduced dose. ANEMIA History of chronic iron deficiency anemia attributed to chronic GI blood loss from AVMs. Status post multiple endoscopic evaluations. Has required multiple transfusions. Admission hemoglobin was 7.4. No gross GI bleeding. Seems to do best maintaining hemoglobin greater than 8.5. Received 2 units pRBC's. Hgb today = 9.9. Continue Fe. ALTERED MENTAL STATUS Presented with worsening confusion, probably secondary to acute on chronic hepatic encephalopathy. US showed small amount of ascitic fluid- doubt SBP. Improved. Continue lactulose, rifaximin. CORONARY ARTERY DISEASE No anginal symptoms. Continue low-dose aspirin every other day and nadolol. PAROXYSMAL ATRIAL FIB Sinus bradycardia at the time of admission. Continue nadolol. No anticoagulants due to chronic GI blood loss and associated anemia. CHRONIC HYPOXIC + HYPERCAPNIC RESPIRATORY FAILURE / COPD / SLEEP APNEA Does not tolerate CPAP or BiPAP. Continue supplemental oxygen, titrating flow rate to maintain sats in low 90s. GERD Continue PPI. CIRRHOSIS Attributed to GRAHAM. Associated portal hypertension. Not coagulopathic. Continue diuretics, lactulose, rifaximin. CKD Chronic kidney disease stage III. Serum creatinine on admission 1.9. Tends be volume sensitive. Need to monitor renal function closely diuresis. Creatinine today = 1.8. HYPERKALEMIA Discontinue spironolactone. DM TYPE 2 Generally well-controlled. Recent A1c on 07/15/16 was 6.8. Hypoglycemic in the ED, poor oral intake day of admission. FBS today = 155. Titrate Lantus / NovoLog. GENERAL DEBILITATION PT/OT. VTE PROPHYLAXIS No anticoagulants due to chronic GI blood loss. SCDs. Ambulate as able. RESUSCITATION STATUS Full code as noted in admission H&P. DISPOSITION Discharge disposition to be determined; may need skilled care. Family Medicine follow-up with Dr. Yann Gutierrez. GI follow-up with Dr. Trinh. Cardiology follow-up with Eva Singleton PA-C. Nephrology follow-up with Dr. Oncu. . Current Inpatient Medications: Current Inpatient Medications Medications (Trade) Dose Ordered Sig/Virgil Route Start Time Stop Time Status Last Admin Dose Admin Aspirin (Ecotrin Tab) 81 mg MoWeFr@0900 PO 09/27/16 09:00 10/27/16 08:59 10/02/16 08:25 81 MG Atorvastatin Calcium (Lipitor Tab) 80 mg QPM PO 09/25/16 21:00 10/25/16 20:59 10/02/16 20:07 80 MG Docusate Sodium (coLACE CAP) 100 mg BID PO 09/25/16 21:00 10/25/16 20:59 10/03/16 08:40 100 MG Insulin Glargine (Lantus Solostar Pen) 30 unit BID SC 09/25/16 21:00 10/25/16 20:59 10/03/16 08:46 30 UNIT Latanoprost (Xalatan Oph Soln) 1 drops HS OPB 09/25/16 21:00 10/25/16 20:59 10/02/16 20:08 1 DROPS Levothyroxine Sodium (Synthroid Tab) 112 mcg DAILYBB PO 09/26/16 06:00 10/26/16 06:59 10/03/16 06:23 112 MCG Nadolol (Corgard Tab) 40 mg QAM PO 09/26/16 09:00 10/26/16 08:59 10/03/16 08:41 40 MG Pantoprazole Sodium (Protonix Tab) 40 mg BID PO 09/25/16 21:00 10/25/16 20:59 10/03/16 08:43 40 MG Rifaximin (Xifaxan Tab) 550 mg BID PO 09/25/16 21:00 10/25/16 20:59 10/03/16 08:41 550 MG Venlafaxine HCl (effeXOR TAB) 100 mg DAILY PO 09/26/16 09:00 10/26/16 08:59 10/03/16 08:37 100 MG Polyethylene (Miralax Powder Packet) 17 gm DAILY PO 09/26/16 09:00 10/26/16 08:59 10/03/16 08:35 17 GM Albuterol (Ventolin Hfa Inhaler) 2 puffs Q4H PRN INH 09/25/16 18:00 10/25/16 17:59 Insulin Aspart (novoLOG ASPART) ACHS SC 09/25/16 21:00 10/25/16 20:59 10/03/16 08:50 3 UNITS Glucose (Glucose 40% Gel) 15-30 GRAMS 15 GRAMS... UD PRN PO 09/25/16 20:00 10/25/16 19:59 Glucose (Glucose Chew Tab) 4-8 Tablets 4 Tabl... UD PRN PO 09/25/16 20:00 10/25/16 19:59 Dextrose (Dextrose 50% 50ML Syringe) 25-50ML OF 50% DW IV FOR... UD PRN IV 09/25/16 20:00 10/25/16 19:59 Glucagon (Glucagon Inj) 1 mg UD PRN SQ 09/25/16 20:00 10/25/16 19:59 Lactulose (Kristalose Powder Packet) 20 gm BID PO 09/26/16 09:00 10/26/16 08:59 10/03/16 08:43 20 GM Albuterol/ Ipratropium (Duoneb) 3 ml Q2H PRN INH 09/26/16 07:00 10/26/16 06:59 10/01/16 22:37 3 ML Tramadol HCl (Ultram Tab) 25 mg Q6 PRN PO 09/26/16 11:15 10/26/16 11:14 09/26/16 23:14 25 MG Cefuroxime Axetil (Ceftin Tab) 500 mg DAILY PO 09/28/16 09:30 10/05/16 09:29 10/03/16 08:41 500 MG Azithromycin (Zithromax Tab) 500 mg QAM PO 09/29/16 08:00 10/06/16 08:59 10/03/16 08:40 500 MG Furosemide (Lasix Tab) 40 mg BID17 PO 09/29/16 20:00 10/29/16 19:59 Future Hold 10/01/16 17:22 40 MG Ferrous Sulfate (Feosol Tab) 325 mg DAILY@1200 PO 10/02/16 12:00 10/26/16 08:59 10/02/16 13:18 325 MG Furosemide 40 mg/ Syringe 4 ml @ 4 mls/min BID@0900,1500 IV 10/02/16 09:00 11/01/16 08:59 10/03/16 08:50 4 MLS/MIN Ondansetron HCl (Zofran Inj) 4 mg Q6H PRN IV 10/02/16 18:00 11/01/16 17:59 10/02/16 18:16 4 MG
[2016-10-03 23:39] VITALS: BP 137/67; PULSE 62; TEMP 36.8; O2SAT 99
[2016-10-04] MEDS: ONDANSETRON INJ 2 MG/ML 2 ML VIAL IV PRN (00:01)
[2016-10-04] MEDS: LEVOTHYROXINE 112 MCG TAB PO SCH (05:31)
[2016-10-04 06:33] LABS: HEMATOCRIT 31.9 % (37-47); MEAN CELL VOLUME 87.2 fL (80-100); MEAN CORPUSCULAR HEMOGLOBIN 25.1 pg (25-34); MEAN CORPUSCULAR HGB CONC 28.8 g/dl (32-36); MEAN PLATELET VOLUME 9.9 fL (7.4-10.4); PLATELET COUNT 235 K/uL (130-400); RED BLOOD COUNT 3.66 M/uL (4.2-5.4); WHITE BLOOD COUNT 11.17 K/uL (4.8-10.8)
[2016-10-04 07:00] VITALS: BP 132/68; PULSE 60; TEMP 36.7; O2SAT 100
[2016-10-04 07:01] LABS: BUN/CREATININE RATIO 29.8 (10-20); CALCIUM 9.9 mg/dl (8.5-10.1); CREATININE 1.8 mg/dl (0.60-1.20); POTASSIUM 5.5 mmol/L (3.5-5.1)
[2016-10-04] MEDS: DOCUSATE SODIUM 100 MG CAP PO SCH ×2 (08:53→19:31)
[2016-10-04] MEDS: ALBUTEROL HFA 8 GM INHALER INH PRN ×2 (08:53→19:30)
[2016-10-04] MEDS: VENLAFAXINE HCL 50 MG TAB PO SCH (08:54)
[2016-10-04] MEDS: CEFUROXIME AXETIL 500 MG TAB PO SCH (08:56)
[2016-10-04] MEDS: ASPIRIN 81 MG ECTAB PO SCH (08:56)
[2016-10-04] MEDS: AZITHROMYCIN 250 MG TAB PO SCH (08:57)
[2016-10-04] MEDS: POLYETHYLENE (MIRALAX) 17 GM PACK PO SCH (08:57)
[2016-10-04] MEDS: RIFAXIMIN TAB 550 MG TAB PO SCH ×2 (08:57→19:31)
[2016-10-04] MEDS: PANTOprazole SOD 40 MG TAB PO SCH ×2 (08:57→19:32)
[2016-10-04] MEDS: LACTULOSE PO SCH ×2 (08:58→19:30)
[2016-10-04] MEDS: NADOLOL 40 MG TAB PO SCH (08:58)
[2016-10-04] MEDS: FUROSEMIDE INJ 40 MG in SYRINGE 0 ML IV SCH ×2 (09:06→15:17)
[2016-10-04] MEDS: INSULIN ASPART 100 UNITS/ML 3 ML PEN SC SCH ×4 (09:07→20:42)
[2016-10-04] MEDS: INSULIN GLARGINE SOLOSTAR 100 UNITS/ML 3 ML PEN SC SCH ×2 (09:08→20:43)
[2016-10-04 09:20] VITALS: O2SAT 97
[2016-10-04] MEDS: FERROUS SULFATE 325 MG TAB PO SCH (11:46)
[2016-10-04 15:07] VITALS: BP 142/70; PULSE 58; TEMP 36.6; O2SAT 95
[2016-10-04 15:31] LABS: URINE APPEARANCE TURBID (CLEAR); URINE BILIRUBIN NEG (NEG); URINE COLOR YELLOW; URINE EPITHELIAL CELL AUTO 20-30 /lpf (0-5); URINE NITRITE POS (NEG); URINE SPECIFIC GRAVITY 1.015 (1.000-1.030); UROBILINOGEN NEG (NEG); ZZURINE CULT IF INDIC CATH YES
[2016-10-04 15:41] LABS: MANUAL MICROSCOPIC REQUIRED? NO; REVIEW REQ? YES
[2016-10-04] MEDS: CEFTRIAXONE SOD INJ 1 GM in DEXTROSE 5% ADD-VANTAGE 50ML 50 ML IV SCH (16:37)
[2016-10-04] MEDS: ATORVASTATIN 40 MG TAB PO SCH (19:31)
[2016-10-04] MEDS: LATANOPROST 0.005% OP SOLN 2.5 ML BTL OPB SCH (19:32)
--- NOTE | 2016-10-04 22:27 | Progress Note ---
Medicine Progress Note Date & Time of Visit: Oct 04, 2016 at 12:18 . Subjective No fever. No chest pain. No cough. No dyspnea at rest. No nausea or vomiting. No BM yet this morning. Rodas catheter removed yesterday. No dysuria. . Objective Last 8 Hrs Date Time Temp Pulse Resp B/P (MAP) Pulse Ox O2 Delivery O2 Flow Rate FiO2 10/04/16 09:20 97 Nasal Cannula 2.0 10/04/16 07:00 36.7 60 20 132/68 (89) 100 Nasal Cannula 2.0 Physical Exam: General- sitting in chair, no distress Eyes- anicteric Neck- + JVD Lungs- few bibasilar rales Heart- RRR Abdomen- + BS, soft, nontender Extremities- 1+ pretibial edema; chronic venous stasis changes Neuro- alert, bit more confused, but oriented 3; can name current and past 2 presidents; moderate asterixis . Laboratory Results: Last 24 Hours Test 10/03/16 16:34 10/03/16 20:27 10/04/16 06:17 10/04/16 07:39 Bedside Glucose 259 mg/dl 201 mg/dl 184 mg/dl White Blood Count 11.17 K/uL Red Blood Count 3.66 M/uL Hemoglobin 9.2 g/dL Hematocrit 31.9 % Mean Corpuscular Volume 87.2 fL Mean Corpuscular Hemoglobin 25.1 pg Mean Corpuscular Hemoglobin Concent 28.8 g/dl RDW Standard Deviation 65.9 fL RDW Coefficient of Variation 21.8 % Platelet Count 235 K/uL Mean Platelet Volume 9.9 fL Sodium Level 138 mmol/L Potassium Level 5.5 mmol/L Chloride Level 96 mmol/L Carbon Dioxide Level 41 mmol/L Anion Gap 1.0 mmol/L Blood Urea Nitrogen 54 mg/dl Creatinine 1.80 mg/dl Est Creatinine Clear Calc Drug Dose 31.2 ml/min Estimated GFR () 31.8 Estimated GFR (Non- 27.4 BUN/Creatinine Ratio 29.8 Random Glucose 196 mg/dl Calcium Level 9.9 mg/dl Test 10/04/16 11:24 Bedside Glucose 252 mg/dl Assessment & Plan CHF Chest x-ray on admission showed cardiomegaly and pulmonary vascular congestion. History of left ventricular diastolic heart failure based on previous echo. Acute on chronic left ventricular diastolic heart failure. No need to repeat echo at this time. Chest x-ray 10/03 showed persistent vascular congestion. Spironolactone stopped due to hyperkalemia. Continue IV furosemide. ANEMIA History of chronic iron deficiency anemia attributed to chronic GI blood loss from AVMs. Status post multiple endoscopic evaluations. Has required multiple transfusions. Admission hemoglobin was 7.4. No gross GI bleeding. Seems to do best maintaining hemoglobin greater than 8.5. Received 2 units pRBC's. Hgb today = 9.2. Continue Fe. ALTERED MENTAL STATUS Presented with worsening confusion, probably secondary to acute on chronic hepatic encephalopathy. US showed small amount of ascitic fluid- doubt SBP. Improved. Continue lactulose, rifaximin. A bit more confused today. Check UA. CORONARY ARTERY DISEASE No anginal symptoms. Continue low-dose aspirin every other day and nadolol. PAROXYSMAL ATRIAL FIB Sinus bradycardia at the time of admission. Continue nadolol. No anticoagulants due to chronic GI blood loss and associated anemia. CHRONIC HYPOXIC + HYPERCAPNIC RESPIRATORY FAILURE / COPD / SLEEP APNEA Does not tolerate CPAP or BiPAP. Continue supplemental oxygen, titrating flow rate to maintain sats in low 90s. GERD Continue PPI. CIRRHOSIS Attributed to GRAHAM. Associated portal hypertension. Not coagulopathic. Spironolactone discontinued due to hyperkalemia. Continue furosemide, lactulose, rifaximin. CKD Chronic kidney disease stage III. Serum creatinine on admission 1.9. Tends be volume sensitive. Creatinine today = 1.8. HYPERKALEMIA Discontinued spironolactone. DM TYPE 2 Generally well-controlled. Recent A1c on 07/15/16 was 6.8. Hypoglycemic in the ED, poor oral intake day of admission. FBS today = 184. Titrate Lantus / NovoLog. GENERAL DEBILITATION PT/OT. VTE PROPHYLAXIS No anticoagulants due to chronic GI blood loss. SCDs. Ambulate as able. RESUSCITATION STATUS Full code as noted in admission H&P. DISPOSITION Discharge disposition to be determined; may need skilled care. Family Medicine follow-up with Dr. Yann Gutierrez. GI follow-up with Dr. Trinh. Cardiology follow-up with Eva Singleton PA-C. Nephrology follow-up with Dr. Jeffers. . Current Inpatient Medications: Current Inpatient Medications Medications (Trade) Dose Ordered Sig/Virgil Route Start Time Stop Time Status Last Admin Dose Admin Aspirin (Ecotrin Tab) 81 mg MoWeFr@0900 PO 09/27/16 09:00 10/27/16 08:59 10/04/16 08:56 81 MG Atorvastatin Calcium (Lipitor Tab) 80 mg QPM PO 09/25/16 21:00 10/25/16 20:59 10/03/16 20:20 80 MG Docusate Sodium (coLACE CAP) 100 mg BID PO 09/25/16 21:00 10/25/16 20:59 10/04/16 08:53 100 MG Latanoprost (Xalatan Oph Soln) 1 drops HS OPB 09/25/16 21:00 10/25/16 20:59 10/03/16 20:21 1 DROPS Levothyroxine Sodium (Synthroid Tab) 112 mcg DAILYBB PO 09/26/16 06:00 10/26/16 06:59 10/04/16 05:31 112 MCG Nadolol (Corgard Tab) 40 mg QAM PO 09/26/16 09:00 10/26/16 08:59 10/04/16 08:58 40 MG Pantoprazole Sodium (Protonix Tab) 40 mg BID PO 09/25/16 21:00 10/25/16 20:59 10/04/16 08:57 40 MG Rifaximin (Xifaxan Tab) 550 mg BID PO 09/25/16 21:00 10/25/16 20:59 10/04/16 08:57 550 MG Venlafaxine HCl (effeXOR TAB) 100 mg DAILY PO 09/26/16 09:00 10/26/16 08:59 10/04/16 08:54 100 MG Polyethylene (Miralax Powder Packet) 17 gm DAILY PO 09/26/16 09:00 10/26/16 08:59 10/04/16 08:57 17 GM Albuterol (Ventolin Hfa Inhaler) 2 puffs Q4H PRN INH 09/25/16 18:00 10/25/16 17:59 10/04/16 08:53 2 PUFFS Insulin Aspart (novoLOG ASPART) ACHS SC 09/25/16 21:00 10/25/16 20:59 10/04/16 09:07 2 UNITS Glucose (Glucose 40% Gel) 15-30 GRAMS 15 GRAMS... UD PRN PO 09/25/16 20:00 10/25/16 19:59 Glucose (Glucose Chew Tab) 4-8 Tablets 4 Tabl... UD PRN PO 09/25/16 20:00 10/25/16 19:59 Dextrose (Dextrose 50% 50ML Syringe) 25-50ML OF 50% DW IV FOR... UD PRN IV 09/25/16 20:00 10/25/16 19:59 Glucagon (Glucagon Inj) 1 mg UD PRN SQ 09/25/16 20:00 10/25/16 19:59 Lactulose (Kristalose Powder Packet) 20 gm BID PO 09/26/16 09:00 10/26/16 08:59 10/04/16 08:58 20 GM Albuterol/ Ipratropium (Duoneb) 3 ml Q2H PRN INH 09/26/16 07:00 10/26/16 06:59 10/01/16 22:37 3 ML Tramadol HCl (Ultram Tab) 25 mg Q6 PRN PO 09/26/16 11:15 10/26/16 11:14 10/03/16 22:20 25 MG Cefuroxime Axetil (Ceftin Tab) 500 mg DAILY PO 09/28/16 09:30 10/05/16 09:29 10/04/16 08:56 500 MG Azithromycin (Zithromax Tab) 500 mg QAM PO 09/29/16 08:00 10/06/16 08:59 10/04/16 08:57 500 MG Furosemide (Lasix Tab) 40 mg BID17 PO 09/29/16 20:00 10/29/16 19:59 Future Hold 10/01/16 17:22 40 MG Ferrous Sulfate (Feosol Tab) 325 mg DAILY@1200 PO 10/02/16 12:00 10/26/16 08:59 10/04/16 11:46 325 MG Furosemide 40 mg/ Syringe 4 ml @ 4 mls/min BID@0900,1500 IV 10/02/16 09:00 11/01/16 08:59 10/04/16 09:06 4 MLS/MIN Ondansetron HCl (Zofran Inj) 4 mg Q6H PRN IV 10/02/16 18:00 11/01/16 17:59 10/04/16 00:01 4 MG Insulin Glargine (Lantus Solostar Pen) 40 unit BID SC 10/03/16 20:00 10/25/16 20:59 10/04/16 09:08 40 UNIT
[2016-10-04 23:39] VITALS: BP 131/63; PULSE 59; TEMP 36.5; O2SAT 97
[2016-10-05 03:58] VITALS: BP 136/63; PULSE 55; TEMP 36.7; O2SAT 97
[2016-10-05] MEDS: LEVOTHYROXINE 112 MCG TAB PO SCH (05:22)
[2016-10-05] MEDS: INSULIN ASPART 100 UNITS/ML 3 ML PEN SC SCH ×4 (06:30→20:04)
[2016-10-05 06:47] LABS: HEMATOCRIT 30.7 % (37-47); MEAN CELL VOLUME 89.5 fL (80-100); MEAN CORPUSCULAR HEMOGLOBIN 25.7 pg (25-34); MEAN CORPUSCULAR HGB CONC 28.7 g/dl (32-36); MEAN PLATELET VOLUME 10.8 fL (7.4-10.4); PLATELET COUNT 244 K/uL (130-400); RED BLOOD COUNT 3.43 M/uL (4.2-5.4); WHITE BLOOD COUNT 11.79 K/uL (4.8-10.8)
[2016-10-05 07:22] LABS: BUN/CREATININE RATIO 32.8 (10-20); CALCIUM 9.8 mg/dl (8.5-10.1); CREATININE 1.8 mg/dl (0.60-1.20); POTASSIUM 5.8 mmol/L (3.5-5.1)
[2016-10-05 07:30] VITALS: BP 120/68; PULSE 60; TEMP 36.6; O2SAT 97
[2016-10-05] MEDS: LACTULOSE PO SCH ×2 (08:00→19:41)
[2016-10-05] MEDS: POLYETHYLENE (MIRALAX) 17 GM PACK PO SCH (08:00)
[2016-10-05] MEDS ORDERED: SODIUM POLYST. SULF SUSP 15G/60ML PO ONE (08:00)
--- NOTE | 2016-10-05 08:01 | DIAGNOSTIC IMAGING REPORT ---
CHEST 2 VIEWS ROUTINE CLINICAL HISTORY: f/u CHF dyspnea COMPARISON STUDY: 10/03/2016 FINDINGS: Findings of congestive failure again noted. This is perhaps minimally diminished. Left and to lesser extent right pleural effusions considered stable. IMPRESSION: Congestive failure versus pulmonary edema. Slight improvement radiographically from the prior study. Electronically signed by: Steve Caicedo M.D. 10/05/2016 8:00 AM Dictated Date/Time: 10/05/2016 7:59 AM
[2016-10-05] MEDS: FUROSEMIDE INJ 40 MG in SYRINGE 0 ML IV SCH ×2 (08:38→14:37)
[2016-10-05] MEDS: PANTOprazole SOD 40 MG TAB PO SCH ×2 (08:38→19:42)
[2016-10-05] MEDS: VENLAFAXINE HCL 50 MG TAB PO SCH (08:38)
[2016-10-05] MEDS: RIFAXIMIN TAB 550 MG TAB PO SCH ×2 (08:39→19:42)
[2016-10-05] MEDS: NADOLOL 40 MG TAB PO SCH (08:39)
[2016-10-05] MEDS: DOCUSATE SODIUM 100 MG CAP PO SCH ×2 (08:39→19:41)
[2016-10-05] MEDS: INSULIN GLARGINE SOLOSTAR 100 UNITS/ML 3 ML PEN SC SCH ×2 (09:03→20:04)
[2016-10-05] MEDS: FERROUS SULFATE 325 MG TAB PO SCH (12:51)
[2016-10-05 14:35] VITALS: BP 155/68; PULSE 60; TEMP 36.6; O2SAT 99
[2016-10-05] MEDS: CEFTRIAXONE SOD INJ 1 GM in DEXTROSE 5% ADD-VANTAGE 50ML 50 ML IV SCH (16:32)
[2016-10-05] MEDS: LATANOPROST 0.005% OP SOLN 2.5 ML BTL OPB SCH (19:41)
[2016-10-05] MEDS: ATORVASTATIN 40 MG TAB PO SCH (19:42)
[2016-10-06] VITALS (10 sets, daily range): BP systolic 109–145; BP diastolic 54–67; PULSE 55–60; TEMP 35.4–36.9; O2SAT 100
--- NOTE | 2016-10-06 05:09 | Progress Note ---
Medicine Progress Note Date & Time of Visit: Oct 05, 2016 at 11:00 . Subjective More confused. Afebrile. Not giving reliable answers to review of systems. . Objective Last 8 Hrs Date Time Temp Pulse Resp B/P (MAP) Pulse Ox O2 Delivery O2 Flow Rate FiO2 10/05/16 08:00 Nasal Cannula 3.0 10/05/16 07:30 36.6 60 24 120/68 (85) 97 Nasal Cannula 3.0 Physical Exam: General- lying in bed, no distress Eyes- anicteric Neck- + JVD Lungs- essentially clear Heart- RRR Abdomen- + BS, soft, nontender Extremities- 1+ pretibial edema; chronic venous stasis changes Neuro- alert, more confused, but oriented to month and year with some effort; can name current president; moderate asterixis . Laboratory Results: Last 24 Hours Test 10/04/16 14:45 10/04/16 16:31 10/04/16 20:12 10/05/16 06:28 Urine Color YELLOW Urine Appearance TURBID Urine pH 5.0 Urine Specific [place] 1.015 Urine Protein 1+ Urine Glucose (UA) NEG Urine Ketones NEG Urine Occult Blood 3+ Urine Nitrite POS Urine Bilirubin NEG Urine Urobilinogen NEG Urine Leukocyte Esterase LARGE Urine WBC (Auto) >30 /hpf Urine RBC (Auto) >30 /hpf Urine Hyaline Casts (Auto) 1-5 /lpf Urine Epithelial Cells (Auto) 20-30 /lpf Urine Bacteria (Auto) 4+ Urine Pathogenic Casts /lpf Bedside Glucose 233 mg/dl 222 mg/dl White Blood Count 11.79 K/uL Red Blood Count 3.43 M/uL Hemoglobin 8.8 g/dL Hematocrit 30.7 % Mean Corpuscular Volume 89.5 fL Mean Corpuscular Hemoglobin 25.7 pg Mean Corpuscular Hemoglobin Concent 28.7 g/dl RDW Standard Deviation 72.8 fL RDW Coefficient of Variation 23.2 % Platelet Count 244 K/uL Mean Platelet Volume 10.8 fL Sodium Level 138 mmol/L Potassium Level 5.8 mmol/L Chloride Level 95 mmol/L Carbon Dioxide Level 44 mmol/L Anion Gap -1.0 mmol/L Blood Urea Nitrogen 59 mg/dl Creatinine 1.80 mg/dl Est Creatinine Clear Calc Drug Dose 31.4 ml/min Estimated GFR () 31.8 Estimated GFR (Non- 27.4 BUN/Creatinine Ratio 32.8 Random Glucose 201 mg/dl Calcium Level 9.8 mg/dl Test 10/05/16 08:09 10/05/16 12:00 Bedside Glucose 172 mg/dl 198 mg/dl Date/Time Source Procedure Growth Status 10/04/16 14:45 Urine,Catheterized Urine Culture - Preliminary Gram Negative Bacilli Resulted Assessment & Plan CHF Chest x-ray on admission showed cardiomegaly and pulmonary vascular congestion. History of left ventricular diastolic heart failure based on previous echo. Acute on chronic left ventricular diastolic heart failure. No need to repeat echo at this time. Chest x-ray today shows slightly improved vascular congestion. Spironolactone stopped due to hyperkalemia. Continue IV furosemide. ANEMIA History of chronic iron deficiency anemia attributed to chronic GI blood loss from AVMs. Status post multiple endoscopic evaluations. Has required multiple transfusions. Admission hemoglobin was 7.4. No gross GI bleeding. Seems to do best maintaining hemoglobin greater than 8.5. Received 2 units pRBC's. Hgb today = 8.8. Continue Fe. ALTERED MENTAL STATUS Presented with worsening confusion, probably secondary to acute on chronic hepatic encephalopathy. US showed small amount of ascitic fluid- doubt SBP. Improved. Continue lactulose, rifaximin. More confused today. UA +. Started on ceftriaxone pending C&S. CORONARY ARTERY DISEASE No anginal symptoms. Continue low-dose aspirin every other day and nadolol. PAROXYSMAL ATRIAL FIB Sinus bradycardia at the time of admission. Continue nadolol. No anticoagulants due to chronic GI blood loss and associated anemia. CHRONIC HYPOXIC + HYPERCAPNIC RESPIRATORY FAILURE / COPD / SLEEP APNEA Does not tolerate CPAP or BiPAP. Continue supplemental oxygen, titrating flow rate to maintain sats in low 90s. GERD Continue PPI. CIRRHOSIS Attributed to GRAHAM. Associated portal hypertension. Not coagulopathic. Spironolactone discontinued due to hyperkalemia. Continue furosemide, lactulose, rifaximin. CKD Chronic kidney disease stage III. Serum creatinine on admission 1.9. Tends be volume sensitive. Creatinine today = 1.8. HYPERKALEMIA Discontinued spironolactone. K today = 5.8. Low K diet. Kayexalate. Recheck K this afternoon. DM TYPE 2 Generally well-controlled. Recent A1c on 07/15/16 was 6.8. Hypoglycemic in the ED, poor oral intake day of admission. FBS today = 172. Titrate Lantus / NovoLog. GENERAL DEBILITATION PT/OT. VTE PROPHYLAXIS No anticoagulants due to chronic GI blood loss. SCDs. Ambulate as able. RESUSCITATION STATUS Full code as noted in admission H&P. DISPOSITION Discharge disposition to be determined; may need skilled care. Family Medicine follow-up with Dr. Yann Gutierrez. GI follow-up with Dr. Trinh. Cardiology follow-up with Eva Singleton PA-C. Nephrology follow-up with Dr. Jeffers. . Current Inpatient Medications: Current Inpatient Medications Medications (Trade) Dose Ordered Sig/Virgil Route Start Time Stop Time Status Last Admin Dose Admin Aspirin (Ecotrin Tab) 81 mg MoWeFr@0900 PO 09/27/16 09:00 10/27/16 08:59 10/04/16 08:56 81 MG Atorvastatin Calcium (Lipitor Tab) 80 mg QPM PO 09/25/16 21:00 10/25/16 20:59 10/04/16 19:31 80 MG Docusate Sodium (coLACE CAP) 100 mg BID PO 09/25/16 21:00 10/25/16 20:59 10/05/16 08:39 100 MG Latanoprost (Xalatan Oph Soln) 1 drops HS OPB 09/25/16 21:00 10/25/16 20:59 10/04/16 19:32 1 DROPS Levothyroxine Sodium (Synthroid Tab) 112 mcg DAILYBB PO 09/26/16 06:00 10/26/16 06:59 10/05/16 05:22 112 MCG Nadolol (Corgard Tab) 40 mg QAM PO 09/26/16 09:00 10/26/16 08:59 10/05/16 08:39 40 MG Pantoprazole Sodium (Protonix Tab) 40 mg BID PO 09/25/16 21:00 10/25/16 20:59 10/05/16 08:38 40 MG Rifaximin (Xifaxan Tab) 550 mg BID PO 09/25/16 21:00 10/25/16 20:59 10/05/16 08:39 550 MG Venlafaxine HCl (effeXOR TAB) 100 mg DAILY PO 09/26/16 09:00 10/26/16 08:59 10/05/16 08:38 100 MG Polyethylene (Miralax Powder Packet) 17 gm DAILY PO 09/26/16 09:00 10/26/16 08:59 10/04/16 08:57 17 GM Albuterol (Ventolin Hfa Inhaler) 2 puffs Q4H PRN INH 09/25/16 18:00 10/25/16 17:59 10/04/16 19:30 2 PUFFS Insulin Aspart (novoLOG ASPART) ACHS SC 09/25/16 21:00 10/25/16 20:59 10/05/16 13:18 2 UNITS Glucose (Glucose 40% Gel) 15-30 GRAMS 15 GRAMS... UD PRN PO 09/25/16 20:00 10/25/16 19:59 Glucose (Glucose Chew Tab) 4-8 Tablets 4 Tabl... UD PRN PO 09/25/16 20:00 10/25/16 19:59 Dextrose (Dextrose 50% 50ML Syringe) 25-50ML OF 50% DW IV FOR... UD PRN IV 09/25/16 20:00 10/25/16 19:59 Glucagon (Glucagon Inj) 1 mg UD PRN SQ 09/25/16 20:00 10/25/16 19:59 Lactulose (Kristalose Powder Packet) 20 gm BID PO 09/26/16 09:00 10/26/16 08:59 10/05/16 08:00 20 GM Albuterol/ Ipratropium (Duoneb) 3 ml Q2H PRN INH 09/26/16 07:00 10/26/16 06:59 10/01/16 22:37 3 ML Tramadol HCl (Ultram Tab) 25 mg Q6 PRN PO 09/26/16 11:15 10/26/16 11:14 10/03/16 22:20 25 MG Furosemide (Lasix Tab) 40 mg BID17 PO 09/29/16 20:00 10/29/16 19:59 Future Hold 10/01/16 17:22 40 MG Ferrous Sulfate (Feosol Tab) 325 mg DAILY@1200 PO 10/02/16 12:00 10/26/16 08:59 10/05/16 12:51 325 MG Furosemide 40 mg/ Syringe 4 ml @ 4 mls/min BID@0900,1500 IV 10/02/16 09:00 11/01/16 08:59 10/05/16 08:38 4 MLS/MIN Ondansetron HCl (Zofran Inj) 4 mg Q6H PRN IV 10/02/16 18:00 11/01/16 17:59 10/04/16 00:01 4 MG Insulin Glargine (Lantus Solostar Pen) 40 unit BID SC 10/03/16 20:00 10/25/16 20:59 10/05/16 09:03 40 UNIT Ceftriaxone Sodium 1 gm/ Dextrose 50 ml @ 100 mls/hr Q24H IV 10/04/16 16:30 10/14/16 16:29 10/04/16 16:37 100 MLS/HR
[2016-10-06] MEDS: LEVOTHYROXINE 112 MCG TAB PO SCH (06:03)
[2016-10-06 07:13] LABS: HEMATOCRIT 29.7 % (37-47); MEAN CELL VOLUME 89.2 fL (80-100); MEAN CORPUSCULAR HEMOGLOBIN 25.2 pg (25-34); MEAN CORPUSCULAR HGB CONC 28.3 g/dl (32-36); MEAN PLATELET VOLUME 10.3 fL (7.4-10.4); PLATELET COUNT 264 K/uL (130-400); RED BLOOD COUNT 3.33 M/uL (4.2-5.4); WHITE BLOOD COUNT 12.98 K/uL (4.8-10.8)
[2016-10-06 07:37] LABS: ANISOCYTOSIS PRESENT; BASO % 0.5 %; BASO ABS # 0.06 K/uL (0-0.2); COMPLETE YES; EOS % 0.8 %; HYPOCHROMIA PRESENT; IG% 0.2 %; LYMPH % 14.7 %; LYMPH ABS # 1.91 K/uL (1.2-3.4); MONO % 12.6 %; NEUT % 71.2 %
[2016-10-06] MEDS ORDERED: IMIPENEM/CILASTATIN CONSULT ACTIVE PRN (07:45)
[2016-10-06] MEDS ORDERED: IMIPENEM/CILASTATIN IV 300 MG in DEXTROSE 5% 100ML 100 ML IV SCH (08:00)
[2016-10-06] MEDS: POLYETHYLENE (MIRALAX) 17 GM PACK PO SCH (08:00)
[2016-10-06] MEDS: LACTULOSE PO SCH ×3 (08:00→21:01)
[2016-10-06 08:03] LABS: ALB/GLOB RATIO 0.6 (0.9-2); BUN/CREATININE RATIO 33.4 (10-20); CALCIUM 9.9 mg/dl (8.5-10.1); CREATININE 1.8 mg/dl (0.60-1.20); POTASSIUM 5.1 mmol/L (3.5-5.1)
[2016-10-06] MEDS: ASPIRIN 81 MG ECTAB PO SCH (08:37)
[2016-10-06] MEDS: PANTOprazole SOD 40 MG TAB PO SCH ×2 (08:37→20:51)
[2016-10-06] MEDS: VENLAFAXINE HCL 50 MG TAB PO SCH (08:37)
[2016-10-06] MEDS: DOCUSATE SODIUM 100 MG CAP PO SCH ×2 (08:37→20:44)
[2016-10-06] MEDS: NADOLOL 40 MG TAB PO SCH (08:38)
[2016-10-06] MEDS: FUROSEMIDE INJ 40 MG in SYRINGE 0 ML IV SCH ×2 (08:38→14:10)
[2016-10-06] MEDS: RIFAXIMIN TAB 550 MG TAB PO SCH ×2 (08:38→20:50)
[2016-10-06] MEDS: INSULIN ASPART 100 UNITS/ML 3 ML PEN SC SCH ×4 (08:53→20:42)
[2016-10-06] MEDS: INSULIN GLARGINE SOLOSTAR 100 UNITS/ML 3 ML PEN SC SCH ×2 (08:54→20:43)
[2016-10-06] MEDS ORDERED: ACETAMINOPHEN 325 MG TAB PO ONE (09:30)
--- NOTE | 2016-10-06 11:19 | Medical Consult ---
Consultation Date of Consultation: Oct 06, 2016. Attending Physician: Alan Chun M.D. Reason for Consultation: MDR Klebsiella History of Present Illness Patient is a 75 yo female admitted to the hospital with concerns of increasing SOB and increasing confusion. 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 Since admission, she was found have acute on chronic CHF, anemia, and altered mental status. Her altered mental status had worsened acutely and urinalysis/urine culture was obtained. She was started on IV Ceftriaxone pending culture. Her culture is growing MDR Klebsiella Oxytoca that is sensitive to Carbapenems, Quinolones, and Macrobid. She was changed to IV Primaxin- which is why we were consulted. Due to patients encephalopathy, cirrhosis, CKD, etc. she is not a very good candidate for Quinolones or Macrobid after discussion with Dr. Chun. She also is likely unable to take PO antibiotics at this time regardless. WBC count today was 12.98. Abdominal U/S showed low volume ascites. CXR yesterday showed congestive failure versus pulmonary edema, and only slight improvement from prior studies. Past Medical/Surgical History Medical Problems: (1) Anemia, iron deficiency (2) Bilateral pleural effusion (3) Bladder cancer (4) Cirrhosis of liver (5) CKD (chronic kidney disease), stage III (6) COPD (chronic obstructive pulmonary disease) (7) Depression (8) Diabetes mellitus type 2 (9) Diastolic CHF (10) Dyslipidemia (11) GERD (gastroesophageal reflux disease) (12) GI bleed (13) History of adenomatous polyp of colon (14) History of bladder cancer (15) History of endometrial cancer (16) Hypercapnia (17) Hypothyroidism (18) Iron deficiency anemia (19) NSTEMI (non-ST elevated myocardial infarction) (20) Paroxysmal a-fib (21) Pleural effusion (22) Portal hypertension (23) Portal vein thrombosis (24) Symptomatic anemia Surgical Problems: (1) H/O colonoscopy with polypectomy (2) H/O esophagogastroduodenoscopy (3) Status post excision bladder tumor (4) Status post hysterectomy Medical Problems: (1) Altered mental status Status: Acute (2) Anemia Status: Acute (3) Anemia Status: Acute (4) Bilateral pleural effusion Status: Chronic (5) CHF exacerbation Status: Acute (6) Congestive heart failure Status: Acute (7) COPD exacerbation Status: Acute (8) Hyperammonemia Status: Acute (9) Hypoglycemia Status: Acute (10) Hypoxia Status: Acute (11) Pneumonia Status: Acute (12) Severe anemia Status: Acute (13) SIRS (systemic inflammatory response syndrome) Status: Acute Family History FH: ovarian cancer MOTHER Noncontributory Social History Smoking Status: Never Smoker Alcohol Use: none Marital Status: Housing Status: lives with family Occupation Status: retired Allergies Coded Allergies: Iron Dextran (Verified Allergy, Severe, IRON INFUSIONS - COULDN'T BREATH - THROAT CLOSING, 09/25/16) Dobutamine (Verified Allergy, Intermediate, DIFFICULTY SWALLOWING, 09/25/16 ) Home Medications Reported Home Medications Medications Dose Route/Sig Max Daily Dose Days Date Category Dose Instructions [ProAir HFA] 2 Puffs INH Q4H PRN 09/25/16 Reported Kristalose (Lactulose) 20 Gm Pack 10-20 Gm PO BID 09/12/16 Rx 1-2 packets mixed with 4 ounces water twice a day. Adjust dose so that you have 2-3 soft BM's daily. Nadolol 40 Mg Tab 40 Mg PO QAM 09/12/16 Rx Ferrous Sulfate 325 Mg Tab 325 Mg PO DAILY 09/12/16 Rx Take daily at lunch. No prescription necessary. Aldactone (Spironolactone) 100 Mg Tab 100 Mg PO QAM 09/02/16 Reported Miralax (Polyethylene Glycol 3350) 1 Pow Pow 17 Gm PO DAILY 09/02/16 Reported Protonix (Pantoprazole Sodium) 40 Mg Tab 40 Mg PO BID 09/02/16 Reported Docusate Sodium 100 Mg Cap 100 Mg PO BID 09/02/16 Reported Xalatan 0.005% Oph Cecilia (Latanoprost) 0.005 % Cecilia 1 Drops OPB HS 90 07/14/16 Reported Lasix (Furosemide) 40 Mg Tab 40 Mg PO BID 07/14/16 Reported Aristocort 0.1% (Triamcinolone Acet) 90 Appln/30 Gm Cr 1 Appln TOP DAILY 07/14/16 Reported Novolog Flexpen (Insulin Aspart) 100 Units/Ml Inj 20-30 Units SC QPM 07/14/16 Reported BEFORE SUPPER Novolog Flexpen (Insulin Aspart) 100 Units/Ml Inj 30 Units SC BIDM 07/14/16 Reported BEFORE BREAKFAST AND LUNCH Aspirin EC Low Dose (Aspirin) 81 Mg Ectab 81 Mg PO 3XWK 05/28/16 Reported Lantus (Insulin Glargine) 100 Unit/Ml Inj 45 Units SC BID 05/28/16 Reported Levothyroxine Sodium 112 Mcg Tab 112 Mcg PO DAILY 10/27/15 Reported Lipitor (Atorvastatin Calcium) 80 Mg Tab 80 Mg PO QPM 10/27/15 Reported Effexor (Venlafaxine Hcl) 100 Mg Tab 100 Mg PO DAILY 10/27/15 Reported TAKE WITH FOOD. Xifaxan (Rifaximin) 550 Mg Tab 550 Mg PO BID 10/27/15 Reported Current Inpatient Medications Current Inpatient Medications Medications (Trade) Dose Ordered Sig/Virgil Route Start Time Stop Time Status Last Admin Dose Admin Aspirin (Ecotrin Tab) 81 mg MoWeFr@0900 PO 09/27/16 09:00 10/27/16 08:59 10/06/16 08:37 81 MG Atorvastatin Calcium (Lipitor Tab) 80 mg QPM PO 09/25/16 21:00 10/25/16 20:59 10/05/16 19:42 80 MG Docusate Sodium (coLACE CAP) 100 mg BID PO 09/25/16 21:00 10/25/16 20:59 10/06/16 08:37 100 MG Latanoprost (Xalatan Oph Soln) 1 drops HS OPB 09/25/16 21:00 10/25/16 20:59 10/05/16 19:41 1 DROPS Levothyroxine Sodium (Synthroid Tab) 112 mcg DAILYBB PO 09/26/16 06:00 10/26/16 06:59 10/06/16 06:03 112 MCG Nadolol (Corgard Tab) 40 mg QAM PO 09/26/16 09:00 10/26/16 08:59 10/06/16 08:38 40 MG Pantoprazole Sodium (Protonix Tab) 40 mg BID PO 09/25/16 21:00 10/25/16 20:59 10/06/16 08:37 40 MG Rifaximin (Xifaxan Tab) 550 mg BID PO 09/25/16 21:00 10/25/16 20:59 10/06/16 08:38 550 MG Venlafaxine HCl (effeXOR TAB) 100 mg DAILY PO 09/26/16 09:00 10/26/16 08:59 10/06/16 08:37 100 MG Polyethylene (Miralax Powder Packet) 17 gm DAILY PO 09/26/16 09:00 10/26/16 08:59 10/04/16 08:57 17 GM Albuterol (Ventolin Hfa Inhaler) 2 puffs Q4H PRN INH 09/25/16 18:00 10/25/16 17:59 10/04/16 19:30 2 PUFFS Insulin Aspart (novoLOG ASPART) ACHS SC 09/25/16 21:00 10/25/16 20:59 10/06/16 08:53 1 UNITS Glucose (Glucose 40% Gel) 15-30 GRAMS 15 GRAMS... UD PRN PO 09/25/16 20:00 10/25/16 19:59 Glucose (Glucose Chew Tab) 4-8 Tablets 4 Tabl... UD PRN PO 09/25/16 20:00 10/25/16 19:59 Dextrose (Dextrose 50% 50ML Syringe) 25-50ML OF 50% DW IV FOR... UD PRN IV 09/25/16 20:00 10/25/16 19:59 Glucagon (Glucagon Inj) 1 mg UD PRN SQ 09/25/16 20:00 10/25/16 19:59 Lactulose (Kristalose Powder Packet) 20 gm BID PO 09/26/16 09:00 10/26/16 08:59 10/06/16 08:00 20 GM Albuterol/ Ipratropium (Duoneb) 3 ml Q2H PRN INH 09/26/16 07:00 10/26/16 06:59 10/01/16 22:37 3 ML Tramadol HCl (Ultram Tab) 25 mg Q6 PRN PO 09/26/16 11:15 10/26/16 11:14 10/03/16 22:20 25 MG Furosemide (Lasix Tab) 40 mg BID17 PO 09/29/16 20:00 10/29/16 19:59 Future Hold 10/01/16 17:22 40 MG Ferrous Sulfate (Feosol Tab) 325 mg DAILY@1200 PO 10/02/16 12:00 10/26/16 08:59 10/05/16 12:51 325 MG Furosemide 40 mg/ Syringe 4 ml @ 4 mls/min BID@0900,1500 IV 10/02/16 09:00 11/01/16 08:59 10/06/16 08:38 4 MLS/MIN Ondansetron HCl (Zofran Inj) 4 mg Q6H PRN IV 10/02/16 18:00 11/01/16 17:59 10/04/16 00:01 4 MG Insulin Glargine (Lantus Solostar Pen) 40 unit BID SC 10/03/16 20:00 10/25/16 20:59 10/06/16 08:54 40 UNITS Imipenem/ Cilastatin Sodium 300 mg/Dextrose 106 ml @ 100 mls/hr Q6H IV 10/06/16 08:00 10/11/16 07:29 10/06/16 08:58 100 MLS/HR Imipenem/ Cilastatin Sodium (Consult) 1 ea UD PRN N/A 10/06/16 07:45 11/05/16 07:44 Review of Systems Unable to obtain ROS due to patient state Physical Exam Date Time Temp Pulse Resp B/P (MAP) Pulse Ox O2 Delivery O2 Flow Rate FiO2 10/06/16 08:00 Nasal Cannula 3.0 10/06/16 07:36 36.5 60 20 145/54 (84) 100 Nasal Cannula 3.0 10/06/16 00:00 Nasal Cannula 3.0 10/05/16 16:00 Nasal Cannula 3.0 10/05/16 14:35 36.6 60 20 155/68 (97) 99 Nasal Cannula 3.0 General Appearance: + mild distress, + pertinent finding (obtunded) Head: normocephalic, atraumatic Eyes: + pertinent finding (opens eyes on and off throughout exam. Sclera white. No meaningful eye contact) Neck: supple Respiratory/Chest: + decreased breath sounds (bilateral bases), + accessory muscle use, + crackles (mild throughout upper lobes) Cardiovascular: regular rate, rhythm, + systolic murmur Abdomen/GI: normal bowel sounds, + distended (mild) Extremities/Musculoskelatal: + pertinent finding (mild darkening of the anterior tibial surfaces- chronic appearing. No real edema b/l LE) Neurologic/Psych: + pertinent finding (obtunded, non-responsive to conversation ) Skin: normal color, warm/dry Laboratory Results RUN DATE: 10/06/16 [facility] LAB PAGE 1 RUN TIME: 722 Specimen Inquiry PATIENT: Obi FERGUSON LOC: [place] U # : [id number] AGE/SX: 75/F ROOM: [facility] REG : 09/25/[address]: Alan Chun M.D. : 1940 BED: 1 DIS : STATUS: ADM IN TLOC: SPEC #: [id number] STALIN: 10/04/16-1445 STATUS: RES REQ #: [id number] RECD: 10/04/16-[address]: Alan Chun M.D. SOURCE: URINE CATH ENTR: 10/04/16-[address]: Valeria Stinson PA-C SPDESC: Yann Gutierrez , D.OMac ORDERED: CULTURE UR CATH Procedure Result Verified Site URINE CULTURE Preliminary 10/06/16-07 Organism 1 KLEBSIELLA OXYTOCA COLONY COUNT >100,000 CFU/ml SENS SENSITIVITY TO FOLLOW SENSITIVITY RESULT INDICATES AN ORGANISM WITH AN EXTENDED SPECTRUM BETA LACTAMASE.THIS IS CONSIDERED A MULTIDRUG RESISTANT ORGANISM.PHONED TO VISH FLORES ON 10/06/16 AT 0722 BY Salomón Ferguson. Results were verbalized back to HEIDI. RESULTS WERE ALSO CALLED TO [facility] ANSWERING MACHINE ON 10/06/16 BY HEIDI. 1. KLEBSIELLA OXYTOCA Target Route Dose RX AB Cost M.I.C. IQ ------ ----- ------ -- ------ -------- - ------ TRIMET/SULFA R >2/38 AMPICILLIN/SUL I 16/8 CEFAZOLIN R >16 CEFOTAXIME R >32 CEFTRIAXONE R >32 CEFEPIME R >16 CEFUROXIME R >16 IMIPENEM S <=1 GENTAMICIN R >8 TOBRAMYCIN R >8 AMIKACIN S <=16 CIPROFLOXACIN S <=1 LEVOFLOXACIN S <=2 ERTAPENEM S <=1 NITROFURANTOIN S <=32 PIP/TAZO S <=16 S = SENSITIVE I = INTERMEDIATE R = RESISTANT Item Value Date Time Urine Culture - Preliminary Resulted 10/04/16 1445 Urine,Catheterized Klebsiella Oxytoca Blood Culture - Final Complete 09/25/16 1225 Blood NO GROWTH Blood Culture - Final Complete 09/25/16 1140 Blood NO GROWTH Last 24 Hours Test 10/05/16 12:00 10/05/16 16:20 10/05/16 16:54 10/05/16 19:53 Bedside Glucose 198 mg/dl 261 mg/dl 238 mg/dl Potassium Level 5.3 mmol/L Test 10/06/16 06:52 10/06/16 06:53 10/06/16 07:41 White Blood Count 12.98 K/uL Red Blood Count 3.33 M/uL Hemoglobin 8.4 g/dL Hematocrit 29.7 % Mean Corpuscular Volume 89.2 fL Mean Corpuscular Hemoglobin 25.2 pg Mean Corpuscular Hemoglobin Concent 28.3 g/dl Platelet Count 264 K/uL Mean Platelet Volume 10.3 fL Neutrophils (%) (Auto) 71.2 % Lymphocytes (%) (Auto) 14.7 % Monocytes (%) (Auto) 12.6 % Eosinophils (%) (Auto) 0.8 % Basophils (%) (Auto) 0.5 % Neutrophils # (Auto) 9.26 K/uL Lymphocytes # (Auto) 1.91 K/uL Monocytes # (Auto) 1.63 K/uL Eosinophils # (Auto) 0.10 K/uL Basophils # (Auto) 0.06 K/uL RDW Standard Deviation 74.9 fL RDW Coefficient of Variation 24.2 % Immature Granulocyte % (Auto) 0.2 % Immature Granulocyte # (Auto) 0.02 K/uL Hypochromasia PRESENT Basophilic Stippling 1+ Anisocytosis PRESENT Sodium Level 142 mmol/L Potassium Level 5.1 mmol/L Chloride Level 96 mmol/L Carbon Dioxide Level 43 mmol/L Anion Gap 3.0 mmol/L Blood Urea Nitrogen 60 mg/dl Creatinine 1.80 mg/dl Est Creatinine Clear Calc Drug Dose 30.4 ml/min Estimated GFR () 31.8 Estimated GFR (Non- 27.4 BUN/Creatinine Ratio 33.4 Random Glucose 180 mg/dl Calcium Level 9.9 mg/dl Total Bilirubin 0.7 mg/dl Aspartate Amino Transf (AST/SGOT) 33 U/L Alanine Aminotransferase (ALT/SGPT) 28 U/L Alkaline Phosphatase 109 U/L Total Protein 6.4 gm/dl Albumin 2.3 gm/dl Globulin 4.1 gm/dl Albumin/Globulin Ratio 0.6 Ammonia 66.0 umol/L Bedside Glucose 194 mg/dl Assessment & Plan Patient with CHF, Anemia, AMS, and now with Klebsiella Oxytoca UTI. She is non- responsive to attempts at conversation/waking. She is currently on IV Imipenem. The patient's Klebsiella oxytoca is resistant to multiple drugs. Feel that we can narrow the spectrum to IV Ertapenem, and after conversation with Dr. Chun , feel she should continue on this therapy until she improves for a likely total of 7 days. Case reviewed and agree with above assessment.
[2016-10-06] MEDS: FERROUS SULFATE 325 MG TAB PO SCH ×2 (12:00→12:08)
[2016-10-06] MEDS: ERTAPENEM IV 1 GM in SODIUM CHLOR 0.9% AD-VAN 50ML 50 ML IV SCH (12:08)
[2016-10-06] MEDS ORDERED: ACETAMINOPHEN 650 MG SUPP PR SCH (19:00)
[2016-10-06] MEDS: ATORVASTATIN 40 MG TAB PO SCH (20:44)
[2016-10-06] MEDS: LATANOPROST 0.005% OP SOLN 2.5 ML BTL OPB SCH (20:53)
--- NOTE | 2016-10-06 22:51 | Progress Note ---
Medicine Progress Note Date & Time of Visit: Oct 06, 2016 at ~ 09:20 . Subjective Afebrile. Confuse. Minimally verbal. . Objective Last 8 Hrs Date Time Temp Pulse Resp B/P (MAP) Pulse Ox O2 Delivery O2 Flow Rate FiO2 10/06/16 08:00 Nasal Cannula 3.0 10/06/16 07:36 36.5 60 20 145/54 (84) 100 Nasal Cannula 3.0 Physical Exam: General- lying in bed, no distress Eyes- anicteric Neck- + JVD Lungs- essentially clear Heart- RRR Abdomen- + BS, soft, nontender Extremities- trace pretibial edema; chronic venous stasis changes Neuro- somnolent, more confused . Laboratory Results: Last 24 Hours Test 10/05/16 12:00 10/05/16 16:20 10/05/16 16:54 10/05/16 19:53 Bedside Glucose 198 mg/dl 261 mg/dl 238 mg/dl Potassium Level 5.3 mmol/L Test 10/06/16 06:52 10/06/16 06:53 10/06/16 07:41 White Blood Count 12.98 K/uL Red Blood Count 3.33 M/uL Hemoglobin 8.4 g/dL Hematocrit 29.7 % Mean Corpuscular Volume 89.2 fL Mean Corpuscular Hemoglobin 25.2 pg Mean Corpuscular Hemoglobin Concent 28.3 g/dl Platelet Count 264 K/uL Mean Platelet Volume 10.3 fL Neutrophils (%) (Auto) 71.2 % Lymphocytes (%) (Auto) 14.7 % Monocytes (%) (Auto) 12.6 % Eosinophils (%) (Auto) 0.8 % Basophils (%) (Auto) 0.5 % Neutrophils # (Auto) 9.26 K/uL Lymphocytes # (Auto) 1.91 K/uL Monocytes # (Auto) 1.63 K/uL Eosinophils # (Auto) 0.10 K/uL Basophils # (Auto) 0.06 K/uL RDW Standard Deviation 74.9 fL RDW Coefficient of Variation 24.2 % Immature Granulocyte % (Auto) 0.2 % Immature Granulocyte # (Auto) 0.02 K/uL Hypochromasia PRESENT Basophilic Stippling 1+ Anisocytosis PRESENT Sodium Level 142 mmol/L Potassium Level 5.1 mmol/L Chloride Level 96 mmol/L Carbon Dioxide Level 43 mmol/L Anion Gap 3.0 mmol/L Blood Urea Nitrogen 60 mg/dl Creatinine 1.80 mg/dl Est Creatinine Clear Calc Drug Dose 30.4 ml/min Estimated GFR () 31.8 Estimated GFR (Non- 27.4 BUN/Creatinine Ratio 33.4 Random Glucose 180 mg/dl Calcium Level 9.9 mg/dl Total Bilirubin 0.7 mg/dl Aspartate Amino Transf (AST/SGOT) 33 U/L Alanine Aminotransferase (ALT/SGPT) 28 U/L Alkaline Phosphatase 109 U/L Total Protein 6.4 gm/dl Albumin 2.3 gm/dl Globulin 4.1 gm/dl Albumin/Globulin Ratio 0.6 Ammonia 66.0 umol/L Bedside Glucose 194 mg/dl Assessment & Plan CHF Chest x-ray on admission showed cardiomegaly and pulmonary vascular congestion. History of left ventricular diastolic heart failure based on previous echo. Acute on chronic left ventricular diastolic heart failure. No need to repeat echo at this time. Chest x-ray 10/05 shows slightly improved vascular congestion. Spironolactone stopped due to hyperkalemia. Continue IV furosemide. ANEMIA History of chronic iron deficiency anemia attributed to chronic GI blood loss from AVMs. Status post multiple endoscopic evaluations. Has required multiple transfusions. Admission hemoglobin was 7.4. No gross GI bleeding. Seems to do best maintaining hemoglobin greater than 8.5. Received 2 units pRBC's. Hgb today = 8.4. Transfuse another unit of packed RBCs today. Continue Fe. ALTERED MENTAL STATUS Presented with worsening confusion, probably secondary to acute on chronic hepatic encephalopathy. US showed small amount of ascitic fluid- doubt SBP. Improved. Continue lactulose, rifaximin. More confused past few days. UTI as discussed below. UTI Rodas catheter discontinued a few days ago. UA checked on 10/04 because of increasing confusion; demonstrated pyuria and bacteriuria. Urine culture sent and patient was started on IV ceftriaxone. Urine culture growing Klebsiella oxytoca, resistant to cephalosporins, gentamicin, tobramycin, TMP/sulfa. Change antibiotic therapy to imipenem. CORONARY ARTERY DISEASE No anginal symptoms. Continue low-dose aspirin every other day and nadolol. PAROXYSMAL ATRIAL FIB Sinus bradycardia at the time of admission. Continue nadolol. No anticoagulants due to chronic GI blood loss and associated anemia. CHRONIC HYPOXIC + HYPERCAPNIC RESPIRATORY FAILURE / COPD / SLEEP APNEA Does not tolerate CPAP or BiPAP. Continue supplemental oxygen. GERD Continue PPI. CIRRHOSIS Attributed to GRAHAM. Associated portal hypertension. Not coagulopathic. Spironolactone discontinued due to hyperkalemia. Continue furosemide, lactulose, rifaximin. CKD Chronic kidney disease stage III. Serum creatinine on admission 1.9. Tends be volume sensitive. Creatinine today = 1.8. HYPERKALEMIA Discontinued spironolactone. K 10/05 = 5.8. Low K diet. Received Kayexalate improvement. Potassium today = 5.1. DM TYPE 2 Generally fairly well-controlled. Recent A1c on 07/15/16 was 6.8. Hypoglycemic in the ED, poor oral intake day of admission. FBS today = 194. Titrate Lantus / NovoLog. GENERAL DEBILITATION PT/OT. VTE PROPHYLAXIS No anticoagulants due to chronic GI blood loss. SCDs. Ambulate as able. RESUSCITATION STATUS Full code as noted in admission H&P. DISPOSITION Discharge disposition to be determined. Functional status is poor. May need skilled care. Family Medicine follow-up with Dr. Yann Gutierrez. GI follow-up with Dr. Trinh. Cardiology follow-up with Eva Singleton PA-C. Nephrology follow-up with Dr. Jeffers. given update by phone this morning. ADDENDUM: Met with this evening. Patient remains confused, minimally verbal. understands that prognosis poor with multiple ongoing problems and declining status. He requests transition to DNR status. He is considering hospice at home depending on how things progress. . Current Inpatient Medications: Current Inpatient Medications Medications (Trade) Dose Ordered Sig/Virgil Route Start Time Stop Time Status Last Admin Dose Admin Aspirin (Ecotrin Tab) 81 mg MoWeFr@0900 PO 09/27/16 09:00 10/27/16 08:59 10/06/16 08:37 81 MG Atorvastatin Calcium (Lipitor Tab) 80 mg QPM PO 09/25/16 21:00 10/25/16 20:59 10/05/16 19:42 80 MG Docusate Sodium (coLACE CAP) 100 mg BID PO 09/25/16 21:00 10/25/16 20:59 10/06/16 08:37 100 MG Latanoprost (Xalatan Oph Soln) 1 drops HS OPB 09/25/16 21:00 10/25/16 20:59 10/05/16 19:41 1 DROPS Levothyroxine Sodium (Synthroid Tab) 112 mcg DAILYBB PO 09/26/16 06:00 10/26/16 06:59 10/06/16 06:03 112 MCG Nadolol (Corgard Tab) 40 mg QAM PO 09/26/16 09:00 10/26/16 08:59 10/06/16 08:38 40 MG Pantoprazole Sodium (Protonix Tab) 40 mg BID PO 09/25/16 21:00 10/25/16 20:59 10/06/16 08:37 40 MG Rifaximin (Xifaxan Tab) 550 mg BID PO 09/25/16 21:00 10/25/16 20:59 10/06/16 08:38 550 MG Venlafaxine HCl (effeXOR TAB) 100 mg DAILY PO 09/26/16 09:00 10/26/16 08:59 10/06/16 08:37 100 MG Polyethylene (Miralax Powder Packet) 17 gm DAILY PO 09/26/16 09:00 10/26/16 08:59 10/04/16 08:57 17 GM Albuterol (Ventolin Hfa Inhaler) 2 puffs Q4H PRN INH 09/25/16 18:00 10/25/16 17:59 10/04/16 19:30 2 PUFFS Insulin Aspart (novoLOG ASPART) ACHS SC 09/25/16 21:00 10/25/16 20:59 10/06/16 08:53 1 UNITS Glucose (Glucose 40% Gel) 15-30 GRAMS 15 GRAMS... UD PRN PO 09/25/16 20:00 10/25/16 19:59 Glucose (Glucose Chew Tab) 4-8 Tablets 4 Tabl... UD PRN PO 09/25/16 20:00 10/25/16 19:59 Dextrose (Dextrose 50% 50ML Syringe) 25-50ML OF 50% DW IV FOR... UD PRN IV 09/25/16 20:00 10/25/16 19:59 Glucagon (Glucagon Inj) 1 mg UD PRN SQ 09/25/16 20:00 10/25/16 19:59 Lactulose (Kristalose Powder Packet) 20 gm BID PO 09/26/16 09:00 10/26/16 08:59 10/06/16 08:00 20 GM Albuterol/ Ipratropium (Duoneb) 3 ml Q2H PRN INH 09/26/16 07:00 10/26/16 06:59 10/01/16 22:37 3 ML Tramadol HCl (Ultram Tab) 25 mg Q6 PRN PO 09/26/16 11:15 10/26/16 11:14 10/03/16 22:20 25 MG Furosemide (Lasix Tab) 40 mg BID17 PO 09/29/16 20:00 10/29/16 19:59 Future Hold 10/01/16 17:22 40 MG Ferrous Sulfate (Feosol Tab) 325 mg DAILY@1200 PO 10/02/16 12:00 10/26/16 08:59 10/05/16 12:51 325 MG Furosemide 40 mg/ Syringe 4 ml @ 4 mls/min BID@0900,1500 IV 10/02/16 09:00 11/01/16 08:59 10/06/16 08:38 4 MLS/MIN Ondansetron HCl (Zofran Inj) 4 mg Q6H PRN IV 10/02/16 18:00 11/01/16 17:59 10/04/16 00:01 4 MG Insulin Glargine (Lantus Solostar Pen) 40 unit BID SC 10/03/16 20:00 10/25/16 20:59 10/06/16 08:54 40 UNITS Imipenem/ Cilastatin Sodium 300 mg/Dextrose 106 ml @ 100 mls/hr Q6H IV 10/06/16 08:00 10/11/16 07:29 10/06/16 08:58 100 MLS/HR Imipenem/ Cilastatin Sodium (Consult) 1 ea UD PRN N/A 10/06/16 07:45 11/05/16 07:44
[2016-10-07] MEDS: LEVOTHYROXINE 112 MCG TAB PO SCH (06:01)
[2016-10-07 06:16] LABS: HEMATOCRIT 31.3 % (37-47); MEAN CELL VOLUME 89.4 fL (80-100); MEAN CORPUSCULAR HEMOGLOBIN 27.1 pg (25-34); MEAN CORPUSCULAR HGB CONC 30.4 g/dl (32-36); MEAN PLATELET VOLUME 10.8 fL (7.4-10.4); PLATELET COUNT 257 K/uL (130-400); WHITE BLOOD COUNT 13.69 K/uL (4.8-10.8)
[2016-10-07 06:56] LABS: BUN/CREATININE RATIO 37.1 (10-20); CREATININE 1.7 mg/dl (0.60-1.20); POTASSIUM 4.9 mmol/L (3.5-5.1)
[2016-10-07] MEDS: D5W AND 1/2NSS 1,000 ML IV SCH ×2 (07:38→19:48)
[2016-10-07] MEDS: PANTOprazole SOD 40 MG TAB PO SCH ×2 (07:42→19:48)
[2016-10-07] MEDS: LACTULOSE PO SCH ×3 (07:42→19:47)
[2016-10-07] MEDS: VENLAFAXINE HCL 50 MG TAB PO SCH (07:42)
[2016-10-07] MEDS: DOCUSATE SODIUM 100 MG CAP PO SCH ×2 (07:42→19:48)
[2016-10-07] MEDS: POLYETHYLENE (MIRALAX) 17 GM PACK PO SCH (07:42)
[2016-10-07] MEDS: RIFAXIMIN TAB 550 MG TAB PO SCH ×2 (07:42→19:47)
[2016-10-07] MEDS: NADOLOL 40 MG TAB PO SCH (07:42)
[2016-10-07 07:47] VITALS: BP 125/47; PULSE 57; O2SAT 100
[2016-10-07] MEDS: INSULIN ASPART 100 UNITS/ML 3 ML PEN SC SCH ×4 (07:55→19:59)
[2016-10-07] MEDS: INSULIN GLARGINE SOLOSTAR 100 UNITS/ML 3 ML PEN SC SCH ×2 (07:55→20:00)
[2016-10-07] MEDS: ERTAPENEM IV 1 GM in SODIUM CHLOR 0.9% AD-VAN 50ML 50 ML IV SCH (11:38)
[2016-10-07] MEDS: FERROUS SULFATE 325 MG TAB PO SCH (11:38)
[2016-10-07 15:22] VITALS: BP 108/54; PULSE 62; TEMP 36.5; O2SAT 97
[2016-10-07 16:00] VITALS: BP 128/72; PULSE 60; O2SAT 99
[2016-10-07 16:50] VITALS: BP 123/50; PULSE 58; O2SAT 98
[2016-10-07] MEDS: TRAMADOL HCL 50 MG TAB PO PRN (18:31)
[2016-10-07] MEDS: ATORVASTATIN 40 MG TAB PO SCH (19:48)
[2016-10-07] MEDS: LATANOPROST 0.005% OP SOLN 2.5 ML BTL OPB SCH (19:49)
[2016-10-07 22:28] VITALS: BP 138/67; PULSE 63; TEMP 36.8; O2SAT 95
[2016-10-07] MEDS ORDERED: HALOPERIDOL LACTATE 5 MG/ML 1 ML VIAL IM PRN (22:30)
[2016-10-07] MEDS ORDERED: HALOPERIDOL 1 MG TAB PO PRN ×2 (22:30→22:45)
--- NOTE | 2016-10-07 22:52 | Progress Note ---
Medicine Progress Note Date & Time of Visit: Oct 07, 2016 at 09:50 . Subjective Still very lethargic. Opens eyes, follows simple commands. Nonverbal. No new problems reported by staff. . Objective Last 8 Hrs Date Time Temp Pulse Resp B/P (MAP) Pulse Ox O2 Delivery O2 Flow Rate FiO2 10/07/16 22:28 36.8 63 20 138/67 (90) 95 Nasal Cannula 3.0 10/07/16 20:41 Nasal Cannula 3.0 10/07/16 16:50 58 24 123/50 (74) 98 Nasal Cannula 3.0 10/07/16 16:00 60 24 128/72 (90) 99 Nasal Cannula 3.0 10/07/16 16:00 99 Nasal Cannula 3.0 10/07/16 15:22 36.5 62 18 108/54 (72) 97 Nasal Cannula 3.0 Physical Exam: General- lying in bed, no distress Eyes- anicteric Neck- + JVD Lungs- few rhonchi Heart- RRR Abdomen- + BS, soft, nontender Extremities- trace pretibial edema; chronic venous stasis changes Neuro- somnolent, confused, nonverbal, follows simple commands . Laboratory Results: Last 24 Hours Test 10/07/16 05:54 10/07/16 07:39 10/07/16 11:35 10/07/16 16:26 White Blood Count 13.69 K/uL Red Blood Count 3.50 M/uL Hemoglobin 9.5 g/dL Hematocrit 31.3 % Mean Corpuscular Volume 89.4 fL Mean Corpuscular Hemoglobin 27.1 pg Mean Corpuscular Hemoglobin Concent 30.4 g/dl RDW Standard Deviation 69.2 fL RDW Coefficient of Variation 22.8 % Platelet Count 257 K/uL Mean Platelet Volume 10.8 fL Sodium Level 140 mmol/L Potassium Level 4.9 mmol/L Chloride Level 96 mmol/L Carbon Dioxide Level 42 mmol/L Anion Gap 2.0 mmol/L Blood Urea Nitrogen 63 mg/dl Creatinine 1.70 mg/dl Est Creatinine Clear Calc Drug Dose 32.0 ml/min Estimated GFR () 34.1 Estimated GFR (Non- 29.4 BUN/Creatinine Ratio 37.1 Random Glucose 151 mg/dl Calcium Level 10.0 mg/dl Bedside Glucose 152 mg/dl 180 mg/dl 212 mg/dl Test 10/07/16 19:50 10/07/16 22:18 Bedside Glucose 258 mg/dl Assessment & Plan CHF Chest x-ray on admission showed cardiomegaly and pulmonary vascular congestion. History of left ventricular diastolic heart failure based on previous echo. Acute on chronic left ventricular diastolic heart failure, possibly precipitated by worsening anemia. No need to repeat echo at this time. Spironolactone stopped due to hyperkalemia. Chest x-rays show persistent pulmonary vascular congestion. Holding furosemide today due to rising BUN and NPO status. Follow and titrate diuretic dosing. ANEMIA History of chronic iron deficiency anemia attributed to chronic GI blood loss from AVMs. Status post multiple endoscopic evaluations. Has required multiple transfusions. Admission hemoglobin was 7.4. No gross GI bleeding. Seems to do best maintaining hemoglobin greater than 8.5. Received 3 units pRBC's. Hgb today = 9.5. Follow H/H. ALTERED MENTAL STATUS Presented with worsening confusion, probably secondary to acute on chronic hepatic encephalopathy. US showed small amount of ascitic fluid- doubt SBP. Improved. Continue lactulose, rifaximin. More confused past few days, probably due to UTI. UTI Rodas catheter placed at time of admission for accurate I/O's + comfort; discontinued 10/03. UA checked on 10/04 because of increasing confusion and demonstrated pyuria + bacteriuria. Urine C&S obtained and patient was started on IV ceftriaxone. Urine culture grew Klebsiella oxytoca, resistant to cephalosporins, gentamicin, tobramycin, TMP/sulfa. Changed antibiotic therapy to imipenem. ID consulted. Now receiving IV ertapenem. CORONARY ARTERY DISEASE No anginal symptoms. Continue low-dose aspirin every other day and nadolol. PAROXYSMAL ATRIAL FIB Sinus bradycardia at the time of admission. Continue nadolol. No anticoagulants due to chronic GI blood loss and associated anemia. CHRONIC HYPOXIC + HYPERCAPNIC RESPIRATORY FAILURE / COPD / SLEEP APNEA Does not tolerate CPAP or BiPAP. Continue supplemental oxygen. GERD Continue PPI. CIRRHOSIS / PORTAL HYPERTENSION / ACUTE + CHRONIC HEPATIC ENCEPHALOPATHY Attributed to GRAHAM. Associated portal hypertension. Not coagulopathic. Spironolactone discontinued due to hyperkalemia. Continue furosemide, lactulose, rifaximin. CKD Chronic kidney disease stage III. Serum creatinine on admission 1.9. Tends be volume sensitive. At risk for hepatorenal syndrome. BUN / creatinine today = 63 / 1.7. Poor oral fluid intake. Hold furosemide today. HYPERKALEMIA Discontinued spironolactone. K 10/05 = 5.8. Low K diet. Received Kayexalate improvement. Potassium today = 4.9. Follow. DM TYPE 2 Generally fairly well-controlled. Recent A1c on 07/15/16 was 6.8. Hypoglycemic in the ED, poor oral intake day of admission. FBS today = 152. Titrate Lantus / NovoLog- Lantus dose decreased due to poor oral intake. GENERAL DEBILITATION PT/OT as tolerated. VTE PROPHYLAXIS No anticoagulants due to chronic GI blood loss. SCDs. Ambulate as able. RESUSCITATION STATUS Patient has been in declining health for some time due to multisystem illnesses as outlined above. Code status changed to DNR per discussion with 10/06/16. DISPOSITION Discharge disposition to be determined. Functional status is poor. May need skilled care if her condition improves. considering hospice care at home. Family Medicine follow-up with Dr. Yann Gutierrez. GI follow-up with Dr. Trinh. Cardiology follow-up with Eva Singleton PA-C. Nephrology follow-up with Dr. Jeffers. ADDENDUM: given update this afternoon. . Current Inpatient Medications: Current Inpatient Medications Medications (Trade) Dose Ordered Sig/Virgil Route Start Time Stop Time Status Last Admin Dose Admin Aspirin (Ecotrin Tab) 81 mg MoWeFr@0900 PO 09/27/16 09:00 10/27/16 08:59 10/06/16 08:37 81 MG Atorvastatin Calcium (Lipitor Tab) 80 mg QPM PO 09/25/16 21:00 10/25/16 20:59 10/07/16 19:48 80 MG Docusate Sodium (coLACE CAP) 100 mg BID PO 09/25/16 21:00 10/25/16 20:59 10/07/16 19:48 100 MG Latanoprost (Xalatan Oph Soln) 1 drops HS OPB 09/25/16 21:00 10/25/16 20:59 10/07/16 19:49 1 DROPS Levothyroxine Sodium (Synthroid Tab) 112 mcg DAILYBB PO 09/26/16 06:00 10/26/16 06:59 10/07/16 06:01 112 MCG Nadolol (Corgard Tab) 40 mg QAM PO 09/26/16 09:00 10/26/16 08:59 10/06/16 08:38 40 MG Pantoprazole Sodium (Protonix Tab) 40 mg BID PO 09/25/16 21:00 10/25/16 20:59 10/07/16 19:48 40 MG Rifaximin (Xifaxan Tab) 550 mg BID PO 09/25/16 21:00 10/25/16 20:59 10/07/16 19:47 550 MG Venlafaxine HCl (effeXOR TAB) 100 mg DAILY PO 09/26/16 09:00 10/26/16 08:59 10/06/16 08:37 100 MG Polyethylene (Miralax Powder Packet) 17 gm DAILY PO 09/26/16 09:00 10/26/16 08:59 10/04/16 08:57 17 GM Insulin Aspart (novoLOG ASPART) ACHS SC 09/25/16 21:00 10/25/16 20:59 10/07/16 19:59 3 UNITS Glucose (Glucose 40% Gel) 15-30 GRAMS 15 GRAMS... UD PRN PO 09/25/16 20:00 10/25/16 19:59 Glucose (Glucose Chew Tab) 4-8 Tablets 4 Tabl... UD PRN PO 09/25/16 20:00 10/25/16 19:59 Dextrose (Dextrose 50% 50ML Syringe) 25-50ML OF 50% DW IV FOR... UD PRN IV 09/25/16 20:00 10/25/16 19:59 Glucagon (Glucagon Inj) 1 mg UD PRN SQ 09/25/16 20:00 10/25/16 19:59 Lactulose (Kristalose Powder Packet) 20 gm BID PO 09/26/16 09:00 10/26/16 08:59 10/07/16 19:47 20 GM Albuterol/ Ipratropium (Duoneb) 3 ml Q2H PRN INH 09/26/16 07:00 10/26/16 06:59 10/01/16 22:37 3 ML Tramadol HCl (Ultram Tab) 25 mg Q6 PRN PO 09/26/16 11:15 10/26/16 11:14 10/07/16 18:31 25 MG Furosemide (Lasix Tab) 40 mg BID17 PO 09/29/16 20:00 10/29/16 19:59 Future Hold 10/01/16 17:22 40 MG Ferrous Sulfate (Feosol Tab) 325 mg DAILY@1200 PO 10/02/16 12:00 10/26/16 08:59 10/05/16 12:51 325 MG Ondansetron HCl (Zofran Inj) 4 mg Q6H PRN IV 10/02/16 18:00 11/01/16 17:59 10/04/16 00:01 4 MG Insulin Glargine (Lantus Solostar Pen) 40 unit BID SC 10/03/16 20:00 10/25/16 20:59 10/07/16 20:00 40 UNITS Ertapenem 1 gm/ Sodium Chloride 50 ml @ 120 mls/hr Q24H IV 10/06/16 12:00 10/16/16 11:59 10/07/16 11:38 120 MLS/HR Haloperidol Lactate (Haldol Inj) 2 mg Q2H PRN IM 10/07/16 22:30 11/06/16 22:29 10/07/16 22:41 2 MG Haloperidol (Haldol Tab) 2 mg Q4H PRN PO 10/07/16 22:45 11/06/16 22:44 Furosemide 60 mg/ Syringe 6 ml @ 4 mls/min UD STAT IV 10/07/16 22:48 10/07/16 22:49 UNV
--- NOTE | 2016-10-07 23:09 | DIAGNOSTIC IMAGING REPORT ---
SINGLE VIEW CHEST CLINICAL HISTORY: Tachypnea. FINDINGS: An AP, portable, upright chest radiograph is compared to study dated 10/05/2016. The examination is degraded by portable technique and patient rotation. The heart is enlarged and there is atherosclerotic calcification of the thoracic aorta. There is pulmonary vascular congestion and interstitial edema. There are small pleural effusions with bibasilar consolidation. No pneumothorax is seen. The skeletal structures are osteopenic. The bony thorax is grossly intact. A left shoulder arthroplasty is in place. IMPRESSION: 1. Cardiomegaly with evidence of congestive failure and interstitial edema. Findings are similar to the 10/05/2016 examination. 2. Pleural effusions with bibasilar consolidation. This likely represents atelectasis. Clinical correlation will be required. Electronically signed by: Jose Alejandro Ramos M.D. 10/07/2016 11:08 PM Dictated Date/Time: 10/07/2016 11:06 PM
[2016-10-07] MEDS ORDERED: FUROSEMIDE INJ 60 MG in SYRINGE 0 ML IV ONE (23:30)
[2016-10-07 23:34] LABS: ARTERIAL BLD GAS O2 SATURATION 93.1 % (90-95); ARTERIAL BLOOD GAS BASE EXCESS 14.9 mEq/L (-9-1.8); ARTERIAL BLOOD GAS HCO3 44 mmol/L (19-24); ARTERIAL BLOOD GAS PO2 78 mm/Hg (80-95); ARTERIAL BLOOD GAS pH 7.32 (7.35-7.45)
[2016-10-07 23:36] LABS: ALLEN TEST POS (POS); O2 ADMINISTRATION 2 L
[2016-10-07 23:38] VITALS: BP 148/68; PULSE 76
[2016-10-08] MEDS ORDERED: LACTULOSE PO ONE (00:11)
[2016-10-08 05:36] LABS: BUN/CREATININE RATIO 38.8 (10-20); CALCIUM 9.5 mg/dl (8.5-10.1); CREATININE 1.6 mg/dl (0.60-1.20); POTASSIUM 4.6 mmol/L (3.5-5.1)
[2016-10-08] MEDS: LEVOTHYROXINE 112 MCG TAB PO SCH (06:26)
[2016-10-08 06:52] LABS: HEMATOCRIT 33.6 % (37-47); MEAN CELL VOLUME 91.8 fL (80-100); MEAN CORPUSCULAR HEMOGLOBIN 26.5 pg (25-34); MEAN CORPUSCULAR HGB CONC 28.9 g/dl (32-36); MEAN PLATELET VOLUME 11.1 fL (7.4-10.4); PLATELET COUNT 287 K/uL (130-400); RED BLOOD COUNT 3.66 M/uL (4.2-5.4); WHITE BLOOD COUNT 14.81 K/uL (4.8-10.8)
[2016-10-08 07:19] VITALS: BP 155/72; PULSE 61; TEMP 36.6; O2SAT 100
[2016-10-08] MEDS: LACTULOSE PO SCH ×3 (07:32→13:51)
[2016-10-08] MEDS: PANTOprazole SOD 40 MG TAB PO SCH ×3 (07:33→20:00)
[2016-10-08] MEDS: DOCUSATE SODIUM 100 MG CAP PO SCH ×3 (07:33→20:00)
[2016-10-08] MEDS: NADOLOL 40 MG TAB PO SCH ×2 (07:33→13:51)
[2016-10-08] MEDS: RIFAXIMIN TAB 550 MG TAB PO SCH ×3 (07:34→20:00)
[2016-10-08] MEDS: POLYETHYLENE (MIRALAX) 17 GM PACK PO SCH ×2 (07:34→13:51)
[2016-10-08] MEDS: INSULIN ASPART 100 UNITS/ML 3 ML PEN SC SCH ×4 (07:45→21:00)
[2016-10-08] MEDS: INSULIN GLARGINE SOLOSTAR 100 UNITS/ML 3 ML PEN SC SCH ×2 (07:59→21:23)
[2016-10-08] MEDS ORDERED: HALOPERIDOL LACTATE 5 MG/ML 1 ML VIAL IV PRN (08:15)
--- NOTE | 2016-10-08 08:34 | Progress Note ---
Medicine Progress Note Date & Time of Visit: Oct 08, 2016 at 07:50 . Subjective Fluctuating level of consciousness throughout the day yesterday. Minimal oral intake. Able to receive 2 doses of lactulose. More delirious / agitated during the night. Chest x-ray showed persistent CHF. Received IV furosemide. Arousable at times during the night. Staff reports loose stools last night. Somnolent this morning. No fever. . Objective Last 8 Hrs Date Time Temp Pulse Resp B/P (MAP) Pulse Ox O2 Delivery O2 Flow Rate FiO2 10/08/16 07:45 Nasal Cannula 3.0 10/08/16 07:19 36.6 61 16 155/72 (99) 100 Nasal Cannula 3.0 Physical Exam: General- lying in bed, lethargic Eyes- anicteric Neck- + JVD Lungs- bibasilar rales, few scattered rhonchi Heart- RRR Abdomen- + BS, soft, nontender Extremities- trace pretibial edema; chronic venous stasis changes Neuro- lethargic . Laboratory Results: Last 24 Hours Test 10/07/16 11:35 10/07/16 16:26 10/07/16 19:50 10/07/16 22:57 Bedside Glucose 180 mg/dl 212 mg/dl 258 mg/dl 238 mg/dl Test 10/07/16 23:21 10/07/16 23:23 10/08/16 05:00 10/08/16 07:42 Arterial Blood pH 7.32 Arterial Blood Partial Pressure CO2 87 mmHg Arterial Blood Partial Pressure O2 78 mm/Hg Arterial Blood HCO3 44 mmol/L Arterial Blood Oxygen Saturation 93.1 % Arterial Blood Base Excess 14.9 mEq/L Arterial Blood Gas Delivery 2 L Akin Test POS Ammonia 148.0 umol/L 72.0 umol/L White Blood Count 14.81 K/uL Red Blood Count 3.66 M/uL Hemoglobin 9.7 g/dL Hematocrit 33.6 % Mean Corpuscular Volume 91.8 fL Mean Corpuscular Hemoglobin 26.5 pg Mean Corpuscular Hemoglobin Concent 28.9 g/dl RDW Standard Deviation 73.7 fL RDW Coefficient of Variation 23.4 % Platelet Count 287 K/uL Mean Platelet Volume 11.1 fL Sodium Level 139 mmol/L Potassium Level 4.6 mmol/L Chloride Level 96 mmol/L Carbon Dioxide Level 43 mmol/L Anion Gap 0.0 mmol/L Blood Urea Nitrogen 62 mg/dl Creatinine 1.60 mg/dl Est Creatinine Clear Calc Drug Dose 34.0 ml/min Estimated GFR () 36.7 Estimated GFR (Non- 31.6 BUN/Creatinine Ratio 38.8 Random Glucose 189 mg/dl Calcium Level 9.5 mg/dl Bedside Glucose 170 mg/dl Assessment & Plan CHF Chest x-ray on admission showed cardiomegaly and pulmonary vascular congestion. History of left ventricular diastolic heart failure based on previous echo. Acute on chronic left ventricular diastolic heart failure, possibly precipitated by worsening anemia. No need to repeat echo at this time. Spironolactone stopped due to hyperkalemia. Chest x-ray last night showed persistent pulmonary vascular congestion. Follow exam and chest x-rays. Titrate furosemide. ANEMIA History of chronic iron deficiency anemia attributed to chronic GI blood loss from AVMs. Status post multiple endoscopic evaluations. Has required multiple transfusions. Admission hemoglobin was 7.4. No gross GI bleeding. Seems to do best maintaining hemoglobin greater than 8.5. Received 3 units pRBC's. Hgb today = 9.7. Follow H/H. ALTERED MENTAL STATUS Presented with worsening confusion, probably secondary to acute on chronic hepatic encephalopathy. US showed small amount of ascitic fluid- doubt SBP. Initially improved somewhat, but more confused over past few days. Continue lactulose, rifaximin. UTI Rodas catheter placed at time of admission for accurate I/O's + comfort; discontinued 10/03. UA checked on 10/04 because of increasing confusion and demonstrated pyuria + bacteriuria. Urine C&S obtained and patient was started on IV ceftriaxone. Urine culture grew Klebsiella oxytoca, resistant to cephalosporins, gentamicin, tobramycin, TMP/sulfa. Changed antibiotic therapy to imipenem. ID consulted. Now receiving IV ertapenem. Afebrile. CORONARY ARTERY DISEASE No anginal symptoms. Continue low-dose aspirin every other day and nadolol. PAROXYSMAL ATRIAL FIB Sinus bradycardia at the time of admission. Continue nadolol. No anticoagulants due to chronic GI blood loss and associated anemia. CHRONIC HYPOXIC + HYPERCAPNIC RESPIRATORY FAILURE / COPD / SLEEP APNEA Does not tolerate CPAP or BiPAP. Continue supplemental oxygen. GERD Continue PPI. CIRRHOSIS / PORTAL HYPERTENSION / ACUTE + CHRONIC HEPATIC ENCEPHALOPATHY Attributed to GRAHAM. Associated portal hypertension. Not coagulopathic. Spironolactone discontinued due to hyperkalemia. Continue furosemide, lactulose, rifaximin. CKD Chronic kidney disease stage III. Serum creatinine on admission 1.9. Tends be volume sensitive. At risk for hepatorenal syndrome. BUN / creatinine today = 62 / 1.6. Titrate diuretics. Follow labs. HYPERKALEMIA Discontinued spironolactone. K 10/05 = 5.8. Low K diet. Received Kayexalate improvement. Potassium today = 4.6. Follow. DM TYPE 2 Generally fairly well-controlled. Recent A1c on 07/15/16 was 6.8. Hypoglycemic in the ED, poor oral intake day of admission. FBS today = 170. Titrate Lantus / NovoLog- Lantus dose decreased due to poor oral intake. GENERAL DEBILITATION PT/OT as tolerated. VTE PROPHYLAXIS No anticoagulants due to chronic GI blood loss. SCDs. Ambulate as able. RESUSCITATION STATUS Patient has been in declining health for some time due to multisystem illnesses as outlined above. Code status changed to DNR per discussion with 10/06/16. DISPOSITION Discharge disposition to be determined. Functional status is poor. May need skilled care if her condition improves. considering hospice care at home. Family Medicine follow-up with Dr. Yann Gutierrez. GI follow-up with Dr. Trinh. Cardiology follow-up with Eva Singleton PA-C. Nephrology follow-up with Dr. Jeffers. . Current Inpatient Medications: Current Inpatient Medications Medications (Trade) Dose Ordered Sig/Virgil Route Start Time Stop Time Status Last Admin Dose Admin Aspirin (Ecotrin Tab) 81 mg MoWeFr@0900 PO 09/27/16 09:00 10/27/16 08:59 10/06/16 08:37 81 MG Docusate Sodium (coLACE CAP) 100 mg BID PO 09/25/16 21:00 10/25/16 20:59 10/08/16 07:33 100 MG Latanoprost (Xalatan Oph Soln) 1 drops HS OPB 09/25/16 21:00 10/25/16 20:59 10/07/16 19:49 1 DROPS Levothyroxine Sodium (Synthroid Tab) 112 mcg DAILYBB PO 09/26/16 06:00 10/26/16 06:59 10/08/16 06:26 112 MCG Nadolol (Corgard Tab) 40 mg QAM PO 09/26/16 09:00 10/26/16 08:59 10/08/16 07:33 40 MG Pantoprazole Sodium (Protonix Tab) 40 mg BID PO 09/25/16 21:00 10/25/16 20:59 10/08/16 07:33 40 MG Rifaximin (Xifaxan Tab) 550 mg BID PO 09/25/16 21:00 10/25/16 20:59 10/08/16 07:34 550 MG Polyethylene (Miralax Powder Packet) 17 gm DAILY PO 09/26/16 09:00 10/26/16 08:59 10/08/16 07:34 17 GM Insulin Aspart (novoLOG ASPART) ACHS SC 09/25/16 21:00 10/25/16 20:59 10/07/16 19:59 3 UNITS Glucose (Glucose 40% Gel) 15-30 GRAMS 15 GRAMS... UD PRN PO 09/25/16 20:00 10/25/16 19:59 Glucose (Glucose Chew Tab) 4-8 Tablets 4 Tabl... UD PRN PO 09/25/16 20:00 10/25/16 19:59 Dextrose (Dextrose 50% 50ML Syringe) 25-50ML OF 50% DW IV FOR... UD PRN IV 09/25/16 20:00 10/25/16 19:59 Glucagon (Glucagon Inj) 1 mg UD PRN SQ 09/25/16 20:00 10/25/16 19:59 Albuterol/ Ipratropium (Duoneb) 3 ml Q2H PRN INH 09/26/16 07:00 10/26/16 06:59 10/01/16 22:37 3 ML Tramadol HCl (Ultram Tab) 25 mg Q6 PRN PO 09/26/16 11:15 10/26/16 11:14 10/07/16 18:31 25 MG Furosemide (Lasix Tab) 40 mg BID17 PO 09/29/16 20:00 10/29/16 19:59 Future Hold 10/01/16 17:22 40 MG Ondansetron HCl (Zofran Inj) 4 mg Q6H PRN IV 10/02/16 18:00 11/01/16 17:59 10/04/16 00:01 4 MG Insulin Glargine (Lantus Solostar Pen) 40 unit BID SC 10/03/16 20:00 10/25/16 20:59 10/08/16 07:59 40 UNITS Ertapenem 1 gm/ Sodium Chloride 50 ml @ 120 mls/hr Q24H IV 10/06/16 12:00 10/16/16 11:59 10/07/16 11:38 120 MLS/HR Lactulose (Kristalose Powder Packet) 20 gm TID PO 10/08/16 08:00 10/26/16 08:59 10/08/16 07:32 20 GM Dextrose/Sodium Chloride 1,000 ml @ 50 mls/hr Q20H IV 10/08/16 08:15 11/07/16 08:14 UNV Furosemide 80 mg/ Syringe 8 ml @ 4 mls/min TODAY@1200 IV 10/08/16 12:00 11/07/16 11:59 UNV Haloperidol Lactate (Haldol Inj) 0.5 mg Q1H PRN IV 10/08/16 08:15 11/07/16 08:14 UNV
[2016-10-08] MEDS: D5W AND 1/2NSS 1,000 ML IV SCH (08:35)
[2016-10-08] MEDS ORDERED: HALOPERIDOL LACTATE 5 MG/ML 1 ML VIAL IM PRN (09:15)
[2016-10-08] MEDS: ERTAPENEM IV 1 GM in SODIUM CHLOR 0.9% AD-VAN 50ML 50 ML IV SCH (11:30)
[2016-10-08] MEDS ORDERED: FUROSEMIDE INJ 80 MG in SYRINGE 0 ML IV ONE (12:00)
[2016-10-08] MEDS ORDERED: FUROSEMIDE INJ 80 MG in SYRINGE 0 ML IV SCH (12:00)
[2016-10-08 15:02] VITALS: BP 123/64; PULSE 58; TEMP 36.5; O2SAT 98
[2016-10-08 16:00] VITALS: O2SAT 96
[2016-10-08] MEDS: LACTULOSE SYRUP 30 GM/45 ML UDP PO SCH (20:00)
[2016-10-08] MEDS: LATANOPROST 0.005% OP SOLN 2.5 ML BTL OPB SCH (21:23)
[2016-10-08 23:25] VITALS: BP 130/64; PULSE 59; TEMP 36.5; O2SAT 99
[2016-10-09] MEDS: D5W AND 1/2NSS 1,000 ML IV SCH ×2 (01:09→22:23)
[2016-10-09] MEDS: LEVOTHYROXINE 112 MCG TAB PO SCH (06:01)
[2016-10-09 07:15] VITALS: BP 120/77; PULSE 59; TEMP 36.6; O2SAT 98
[2016-10-09] MEDS: LACTULOSE SYRUP 30 GM/45 ML UDP PO SCH ×3 (07:30→21:45)
[2016-10-09] MEDS: DOCUSATE SODIUM 100 MG CAP PO SCH ×2 (07:30→21:45)
[2016-10-09] MEDS: NADOLOL 40 MG TAB PO SCH (07:30)
[2016-10-09] MEDS: ASPIRIN 81 MG ECTAB PO SCH (07:31)
[2016-10-09] MEDS: RIFAXIMIN TAB 550 MG TAB PO SCH ×2 (07:31→21:45)
[2016-10-09] MEDS: POLYETHYLENE (MIRALAX) 17 GM PACK PO SCH (07:31)
[2016-10-09] MEDS: PANTOprazole SOD 40 MG TAB PO SCH ×2 (07:31→21:45)
[2016-10-09] MEDS: INSULIN ASPART 100 UNITS/ML 3 ML PEN SC SCH ×4 (08:06→21:46)
[2016-10-09] MEDS: INSULIN GLARGINE SOLOSTAR 100 UNITS/ML 3 ML PEN SC SCH ×2 (08:13→21:59)
--- NOTE | 2016-10-09 10:50 | Progress Note ---
Medicine Progress Note Date & Time of Visit: Oct 09, 2016 at 10:50 . Subjective Afebrile. Minimally responsive. No new problems reported by staff. Rodas catheter placed for comfort. . Objective Last 8 Hrs Date Time Temp Pulse Resp B/P (MAP) Pulse Ox O2 Delivery O2 Flow Rate FiO2 10/09/16 08:00 Nasal Cannula 2.0 10/09/16 07:15 36.6 59 18 120/77 (91) 98 Room Air Physical Exam: General- lying in bed, no apparent distress Eyes- anicteric Neck- + JVD Lungs- bibasilar rales, few scattered rhonchi Heart- RRR Abdomen- + BS, soft, nontender Extremities- trace pretibial edema; chronic venous stasis changes Neuro- lethargic, opens eyes, nods head in response to questions . Laboratory Results: Last 24 Hours Test 10/08/16 11:52 10/08/16 16:25 10/08/16 20:01 10/09/16 07:51 Bedside Glucose 188 mg/dl 178 mg/dl 172 mg/dl 172 mg/dl Assessment & Plan ALTERED MENTAL STATUS Presented with worsening confusion, probably secondary to acute on chronic hepatic encephalopathy. US showed small amount of ascitic fluid- doubt SBP. Initially improved somewhat, but more confused over past few days. Continue lactulose, rifaximin as tolerated. does not wish to have NGT placed for administration of meds. CIRRHOSIS / PORTAL HYPERTENSION / ACUTE + CHRONIC HEPATIC ENCEPHALOPATHY Advanced cirrhosis attributed to GRAHAM. Associated portal hypertension and hepatic encephalopathy. 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 Spironolactone discontinued due to hyperkalemia. Continue furosemide, lactulose, rifaximin. CHF Chest x-ray on admission showed cardiomegaly and pulmonary vascular congestion. History of left ventricular diastolic heart failure based on previous echo. Acute on chronic left ventricular diastolic heart failure, possibly precipitated by worsening anemia. No need to repeat echo at this time. Spironolactone stopped due to hyperkalemia. Chest x-ray 10/07 showed persistent pulmonary vascular congestion. Continue IV furosemide. ANEMIA History of chronic iron deficiency anemia attributed to chronic GI blood loss from AVMs. Status post multiple endoscopic evaluations. Has required multiple transfusions. Admission hemoglobin was 7.4. No gross GI bleeding. Seems to do best maintaining hemoglobin greater than 8.5. Received 3 units pRBC's. Hgb / was 9.7. Follow H/H. CKD Chronic kidney disease stage III. Serum creatinine on admission 1.9. Tends be volume sensitive. At risk for hepatorenal syndrome. BUN / creatinine 10/08 were 62 / 1.6. Titrate diuretics. Follow labs. HYPERKALEMIA Discontinued spironolactone. K 10/05 = 5.8. Low K diet. Received Kayexalate improvement. Potassium 10/08 was 4.6. Follow. DM TYPE 2 Generally fairly well-controlled. Recent A1c on 07/15/16 was 6.8. Hypoglycemic in the ED, poor oral intake day of admission. FBS today = 172. Titrate Lantus / NovoLog- Lantus dose decreased due to poor oral intake. UTI Rodas catheter placed at time of admission for accurate I/O's + comfort; discontinued 10/03. UA checked on 10/04 because of increasing confusion and demonstrated pyuria + bacteriuria. Urine C&S obtained and patient was started on IV ceftriaxone. Urine culture grew Klebsiella oxytoca, resistant to cephalosporins, gentamicin, tobramycin, TMP/sulfa. Changed antibiotic therapy to imipenem. ID consulted. Now receiving IV ertapenem. Afebrile. CORONARY ARTERY DISEASE No anginal symptoms. Continue low-dose aspirin every other day and nadolol. PAROXYSMAL ATRIAL FIB Sinus bradycardia at the time of admission. Continue nadolol. No anticoagulants due to chronic GI blood loss and associated anemia. CHRONIC HYPOXIC + HYPERCAPNIC RESPIRATORY FAILURE / COPD / SLEEP APNEA Does not tolerate CPAP or BiPAP. Continue supplemental oxygen. GERD Continue PPI. GENERAL DEBILITATION Very poor functional status. Received PT/OT as tolerated. VTE PROPHYLAXIS No anticoagulants due to chronic GI blood loss. SCDs. Ambulate as able. RESUSCITATION STATUS Patient has been in declining health for some time due to multisystem illnesses as outlined above. Code status changed to DNR per discussion with 10/06/16. DISPOSITION Functional status is very poor. 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 Patient does not wish to be transferred to a care home. Management has transitioned to palliative care with DO NOT RESUSCITATE status. Monitor condition over the next 24-48 hours. Consider transition to in-hospital hospice care. Consult Palliative Care. . Current Inpatient Medications: Current Inpatient Medications Medications (Trade) Dose Ordered Sig/Virgil Route Start Time Stop Time Status Last Admin Dose Admin Aspirin (Ecotrin Tab) 81 mg MoWeFr@0900 PO 09/27/16 09:00 10/27/16 08:59 10/06/16 08:37 81 MG Docusate Sodium (coLACE CAP) 100 mg BID PO 09/25/16 21:00 10/25/16 20:59 10/07/16 19:48 100 MG Latanoprost (Xalatan Oph Soln) 1 drops HS OPB 09/25/16 21:00 10/25/16 20:59 10/08/16 21:23 1 DROPS Levothyroxine Sodium (Synthroid Tab) 112 mcg DAILYBB PO 09/26/16 06:00 10/26/16 06:59 10/08/16 06:26 112 MCG Nadolol (Corgard Tab) 40 mg QAM PO 09/26/16 09:00 10/26/16 08:59 10/06/16 08:38 40 MG Pantoprazole Sodium (Protonix Tab) 40 mg BID PO 09/25/16 21:00 10/25/16 20:59 10/07/16 19:48 40 MG Rifaximin (Xifaxan Tab) 550 mg BID PO 09/25/16 21:00 10/25/16 20:59 10/07/16 19:47 550 MG Polyethylene (Miralax Powder Packet) 17 gm DAILY PO 09/26/16 09:00 10/26/16 08:59 10/04/16 08:57 17 GM Insulin Aspart (novoLOG ASPART) ACHS SC 09/25/16 21:00 10/25/16 20:59 10/08/16 12:23 1 UNITS Glucose (Glucose 40% Gel) 15-30 GRAMS 15 GRAMS... UD PRN PO 09/25/16 20:00 10/25/16 19:59 Glucose (Glucose Chew Tab) 4-8 Tablets 4 Tabl... UD PRN PO 09/25/16 20:00 10/25/16 19:59 Dextrose (Dextrose 50% 50ML Syringe) 25-50ML OF 50% DW IV FOR... UD PRN IV 09/25/16 20:00 10/25/16 19:59 Glucagon (Glucagon Inj) 1 mg UD PRN SQ 09/25/16 20:00 10/25/16 19:59 Albuterol/ Ipratropium (Duoneb) 3 ml Q2H PRN INH 09/26/16 07:00 10/26/16 06:59 10/01/16 22:37 3 ML Tramadol HCl (Ultram Tab) 25 mg Q6 PRN PO 09/26/16 11:15 10/26/16 11:14 10/07/16 18:31 25 MG Furosemide (Lasix Tab) 40 mg BID17 PO 09/29/16 20:00 10/29/16 19:59 Future Hold 10/01/16 17:22 40 MG Ondansetron HCl (Zofran Inj) 4 mg Q6H PRN IV 10/02/16 18:00 11/01/16 17:59 10/04/16 00:01 4 MG Ertapenem 1 gm/ Sodium Chloride 50 ml @ 120 mls/hr Q24H IV 10/06/16 12:00 10/16/16 11:59 10/08/16 11:30 120 MLS/HR Dextrose/Sodium Chloride 1,000 ml @ 50 mls/hr Q20H IV 10/08/16 08:45 11/07/16 08:44 10/09/16 01:09 50 MLS/HR Haloperidol Lactate (Haldol Inj) 0.5 mg Q1H PRN IM 10/08/16 09:15 11/07/16 08:14 Lactulose (Chronulac Syrup) 30 gm TID PO 10/08/16 20:00 11/07/16 19:59 Insulin Glargine (Lantus Solostar Pen) 30 units BID SC 10/08/16 20:00 10/25/16 20:59 10/09/16 08:13 30 UNITS
[2016-10-09] MEDS: ERTAPENEM IV 1 GM in SODIUM CHLOR 0.9% AD-VAN 50ML 50 ML IV SCH (12:19)
[2016-10-09] MEDS ORDERED: FUROSEMIDE INJ 80 MG in SYRINGE 0 ML IV ONE (12:30)
[2016-10-09 14:57] VITALS: BP 119/48; PULSE 64; TEMP 36.4; O2SAT 97
[2016-10-09] MEDS: LATANOPROST 0.005% OP SOLN 2.5 ML BTL OPB SCH (21:45)
[2016-10-09 23:52] VITALS: BP 133/66; PULSE 72; TEMP 36.4; O2SAT 97
[2016-10-10 07:20] VITALS: BP 146/70; PULSE 67; TEMP 36.5; O2SAT 97
[2016-10-10] MEDS: PANTOprazole SOD 40 MG TAB PO SCH ×2 (09:09→21:24)
[2016-10-10] MEDS: LEVOTHYROXINE 112 MCG TAB PO SCH (09:09)
[2016-10-10] MEDS: DOCUSATE SODIUM 100 MG CAP PO SCH ×2 (09:09→21:24)
[2016-10-10] MEDS: LACTULOSE SYRUP 30 GM/45 ML UDP PO SCH ×3 (09:09→20:00)
[2016-10-10] MEDS: FUROSEMIDE INJ 80 MG in SYRINGE 0 ML IV SCH (09:09)
[2016-10-10] MEDS: NADOLOL 40 MG TAB PO SCH (09:10)
[2016-10-10] MEDS: RIFAXIMIN TAB 550 MG TAB PO SCH ×2 (09:10→21:24)
[2016-10-10] MEDS: POLYETHYLENE (MIRALAX) 17 GM PACK PO SCH (09:16)
[2016-10-10] MEDS: INSULIN ASPART 100 UNITS/ML 3 ML PEN SC SCH ×4 (09:18→21:29)
[2016-10-10] MEDS: INSULIN GLARGINE SOLOSTAR 100 UNITS/ML 3 ML PEN SC SCH ×2 (09:19→21:28)
[2016-10-10] MEDS: ERTAPENEM IV 1 GM in SODIUM CHLOR 0.9% AD-VAN 50ML 50 ML IV SCH (12:27)
[2016-10-10 15:33] VITALS: BP 132/64; PULSE 65; TEMP 36.7; O2SAT 99
--- NOTE | 2016-10-10 17:54 | Progress Note ---
Internal Med Progress Note Date of Service: Oct 10, 2016. Provider Documentation: SUBJECTIVE: patient is not very well responsive to auditory and painful stimuli. Occasionally opens the eyes. OBJECTIVE: Vital Signs-as noted below Examination: General- lying in bed, In no apparent distress. Confused Eyes- anicteric Neck- Supple, Midline trachea, Mild JVD Lungs- B/L Moderate air entry, bibasilar rales, few scattered rhonchi Heart- RRR Abdomen- + BS, soft, nontender Extremities- trace pretibial edema; chronic venous stasis changes Neuro- lethargic, opens eyes, nods head in response to questions Lab data as noted below. ASSESSMENT & PLAN: Altered Mental Status: Presented with worsening confusion, probably secondary to acute on chronic hepatic encephalopathy. US showed small amount of ascitic fluid- doubt SBP.Initially improved somewhat, but more confused over past few days. -Continue lactulose, rifaximin as tolerated. - does not wish to have NGT placed for administration of meds. 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 Associated portal hypertension and hepatic encephalopathy. -Ultrasound of abdomen showed small volume ascites; doubt spontaneous bacterial peritonitis. -Spironolactone discontinued due to hyperkalemia. -Continue furosemide, lactulose, rifaximin. -Monitoring electrolytes History of Diastolic CHF: Chest x-ray on admission showed cardiomegaly and pulmonary vascular congestion. History of left ventricular diastolic heart failure based on previous echo. Acute on chronic left ventricular diastolic heart failure, possibly precipitated by worsening anemia. -No need to repeat echo at this time. -Spironolactone stopped due to hyperkalemia. -Chest x-ray 10/07 showed persistent pulmonary vascular congestion. -Continue IV furosemide. Anemia: History of chronic iron deficiency anemia attributed to chronic GI blood loss from AVMs. Status post multiple endoscopic evaluations.Has required multiple transfusions. -Admission hemoglobin was 7.4.No gross GI bleeding. -Seems to do best maintaining hemoglobin greater than 8.5.Received 3 units pRBC's. -Following H/H. CKD Stage III: Serum creatinine on admission 1.9.Tends be volume sensitive.At risk for hepatorenal syndrome. -BUN / creatinine / were 62 / 1.6. -Titrate diuretics. Follow labs. -Avoid any nephrotoxin Hyperkalemia: Discontinued spironolactone.K 10/05 = 5.8. -Low K diet. -Received Kayexalate improvement. -Repeat labs in AM . Diabetes Type II: Generally fairly well-controlled. -Recent A1c on 07/15/16 was 6.8. -Hypoglycemic in the ED, poor oral intake day of admission. -Titrate Lantus / NovoLog- Lantus dose decreased due to poor oral intake. UTI : Rodas catheter placed at time of admission for accurate I/O's + comfort; discontinued 10/03. UA checked on 10/04 because of increasing confusion and demonstrated pyuria + bacteriuria. -Urine C&S obtained and patient was started on IV ceftriaxone. -Urine culture grew Klebsiella oxytoca, resistant to cephalosporins, gentamicin, tobramycin, TMP/sulfa. -Changed antibiotic therapy to imipenem. -ID consulted. & Now receiving IV ertapenem. History CAD: No anginal symptoms. -Continue low-dose aspirin every other day and nadolol. Paroxysmal A. Fib: Sinus bradycardia at the time of admission. -Continue nadolol. -No anticoagulants due to chronic GI blood loss and associated anemia. Chronic Hypoxic/ Hypercapnic Respiratory Failure: History of Sleep Sleep. -Does not tolerate CPAP or BiPAP. -Continue supplemental oxygen. GERD: Continue PPI. General Debilitation: Very poor functional status. -Received PT/OT as tolerated. VTE Prophylaxis: No anticoagulants due to chronic GI blood loss. -SCDs. -Ambulate as able. Resuscitation Status: Patient has been in declining health for some time due to multisystem illnesses as outlined above. Code status changed to DNR per discussion with 10/06/16. Disposition: Functional status is very poor. 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 Patient does not wish to be transferred to a fci. Management has transitioned to palliative care with DO NOT RESUSCITATE status. Monitor condition over the next 24-48 hours. Consider transition to in-hospital hospice care. Consult Palliative Care. Vital Signs: Date Time Temp Pulse Resp B/P (MAP) Pulse Ox O2 Delivery O2 Flow Rate FiO2 10/10/16 16:00 Nasal Cannula 2.0 10/10/16 15:33 36.7 65 24 132/64 (86) 99 Nasal Cannula 3.0 10/10/16 09:30 Nasal Cannula 2.0 10/10/16 07:20 36.5 67 20 146/70 (95) 97 Nasal Cannula 3.0 10/10/16 00:00 Nasal Cannula 2.0 10/09/16 23:52 36.4 72 18 133/66 (88) 97 Nasal Cannula 2.0 10/09/16 20:00 Nasal Cannula 2.0 Lab Results: Results Past 24 Hours Test 10/09/16 20:29 10/10/16 07:53 10/10/16 11:13 10/10/16 16:25 Range/Units Bedside Glucose 146 189 222 227 70-90 mg/dl
[2016-10-10] MEDS: D5W AND 1/2NSS 1,000 ML IV SCH (18:17)
[2016-10-10] MEDS: LATANOPROST 0.005% OP SOLN 2.5 ML BTL OPB SCH (21:25)
[2016-10-10 23:05] VITALS: BP 126/63; PULSE 63; TEMP 36.4; O2SAT 100
[2016-10-11] MEDS: TRAMADOL HCL 50 MG TAB PO PRN (03:14)
[2016-10-11] MEDS: LEVOTHYROXINE 112 MCG TAB PO SCH (06:25)
[2016-10-11 06:43] LABS: HEMATOCRIT 33.7 % (37-47); MEAN CELL VOLUME 91.3 fL (80-100); MEAN CORPUSCULAR HEMOGLOBIN 26.6 pg (25-34); MEAN CORPUSCULAR HGB CONC 29.1 g/dl (32-36); MEAN PLATELET VOLUME 10.2 fL (7.4-10.4); PLATELET COUNT 333 K/uL (130-400); RED BLOOD COUNT 3.69 M/uL (4.2-5.4)
[2016-10-11 06:46] LABS: BASO % 0.2 %; BASO ABS # 0.03 K/uL (0-0.2); COMPLETE YES; EOS % 0.3 %; IG% 0.2 %; LYMPH % 10.4 %; LYMPH ABS # 1.45 K/uL (1.2-3.4); MONO % 11.9 %; POLYCHROMASIA 1+
[2016-10-11 07:09] VITALS: BP 123/67; PULSE 64; TEMP 36.5; O2SAT 98
[2016-10-11 07:11] LABS: ALB/GLOB RATIO 0.5 (0.9-2); CALCIUM 9.2 mg/dl (8.5-10.1); CREATININE 1.3 mg/dl (0.60-1.20); POTASSIUM 4.5 mmol/L (3.5-5.1)
[2016-10-11] MEDS: LACTULOSE SYRUP 30 GM/45 ML UDP PO SCH ×3 (07:51→20:26)
[2016-10-11] MEDS: FUROSEMIDE INJ 80 MG in SYRINGE 0 ML IV SCH (07:51)
[2016-10-11] MEDS: ASPIRIN 81 MG ECTAB PO SCH (07:52)
[2016-10-11] MEDS: PANTOprazole SOD 40 MG TAB PO SCH (07:52)
[2016-10-11] MEDS: DOCUSATE SODIUM 100 MG CAP PO SCH (07:52)
[2016-10-11] MEDS: RIFAXIMIN TAB 550 MG TAB PO SCH ×2 (07:52→20:26)
[2016-10-11] MEDS: NADOLOL 40 MG TAB PO SCH (07:52)
[2016-10-11] MEDS: POLYETHYLENE (MIRALAX) 17 GM PACK PO SCH (07:53)
[2016-10-11] MEDS: INSULIN GLARGINE SOLOSTAR 100 UNITS/ML 3 ML PEN SC SCH ×2 (07:55→20:29)
[2016-10-11] MEDS: INSULIN ASPART 100 UNITS/ML 3 ML PEN SC SCH ×4 (08:01→20:30)
[2016-10-11] MEDS ORDERED: NURSING VERBAL MED ORDER ONE (11:00)
[2016-10-11] MEDS: ERTAPENEM IV 1 GM in SODIUM CHLOR 0.9% AD-VAN 50ML 50 ML IV SCH (12:11)
--- NOTE | 2016-10-11 12:21 | Progress Note ---
Internal Med Progress Note Date of Service: Oct 11, 2016. Provider Documentation: SUBJECTIVE: Patient is more awake/alert today and tries to answer simple questions. Does not seem to be in any acute distress. Breathing comfortably and had some SOB earlier today. Remains afebrile.No tremors noted. OBJECTIVE: Vital Signs-as noted below Examination: General- Awake & is lying in bed, In no apparent distress. Eyes- anicteric Neck- Supple, Midline trachea, Mild JVD Lungs- B/L Moderate air entry, bibasilar rales, few scattered rhonchi Heart- RRR Abdomen- + BS, soft, nontender Extremities- trace pretibial edema; chronic venous stasis changes Neuro- lethargic, opens eyes, nods head in response to questions Lab data as noted below. ASSESSMENT & PLAN: Altered Mental Status: Improving.Presented with worsening confusion, probably secondary to acute on chronic hepatic encephalopathy. US showed small amount of ascitic fluid- doubt SBP. -Continue lactulose, rifaximin as tolerated. - does not wish to have NGT placed for administration of meds. 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 Associated portal hypertension and hepatic encephalopathy. -Ultrasound of abdomen showed small volume ascites; doubt spontaneous bacterial peritonitis. -Spironolactone discontinued due to hyperkalemia. -Continue furosemide, lactulose, rifaximin. -Monitoring electrolytes History of Diastolic CHF: Chest x-ray on admission showed cardiomegaly and pulmonary vascular congestion. History of left ventricular diastolic heart failure based on previous echo. Acute on chronic left ventricular diastolic heart failure, possibly precipitated by worsening anemia. -No need to repeat echo at this time. -Spironolactone stopped due to hyperkalemia. -Chest x-ray 10/07 showed persistent pulmonary vascular congestion. -Continue IV furosemide. -D/C IVF -Repeat Chest X-Ray ordered. UTI : Rodas catheter placed at time of admission for accurate I/O's + comfort; discontinued 10/03. UA checked on 10/04 because of increasing confusion and demonstrated pyuria + bacteriuria. -Urine C&S obtained and patient was started on IV ceftriaxone. -Urine culture grew Klebsiella oxytoca, resistant to cephalosporins, gentamicin, tobramycin, TMP/sulfa. -ID consulted. & Now receiving IV ertapenem (Day # 6). Anemia: Stable. History of chronic iron deficiency anemia attributed to chronic GI blood loss from AVMs. Status post multiple endoscopic evaluations.Has required multiple transfusions. -Admission hemoglobin was 7.4.No gross GI bleeding. -Seems to do best maintaining hemoglobin greater than 8.5.Received 3 units pRBC's. -Following H/H. CKD Stage III: Serum creatinine on admission 1.9.Tends be volume sensitive.At risk for hepatorenal syndrome. -Titrate diuretics. Follow labs. -Avoid any nephrotoxin Hyperkalemia: Resolved now.Discontinued spironolactone.K 10/05 = 5.8. -Low K diet. -Received Kayexalate improvement. Diabetes Type II: Generally fairly well-controlled. -Recent A1c on 07/15/16 was 6.8. -Hypoglycemic in the ED, poor oral intake day of admission. -Titrate Lantus / NovoLog- Lantus dose decreased due to poor oral intake. History CAD: No anginal symptoms. -Continue low-dose aspirin every other day and nadolol. Paroxysmal A. Fib: Sinus bradycardia at the time of admission. -Continue nadolol. -No anticoagulants due to chronic GI blood loss and associated anemia. Chronic Hypoxic/ Hypercapnic Respiratory Failure: History of Sleep Sleep. -Does not tolerate CPAP or BiPAP. -Continue supplemental oxygen. GERD: Continue PPI. General Debilitation: Very poor functional status. -Received PT/OT as tolerated. VTE Prophylaxis: No anticoagulants due to chronic GI blood loss. -SCDs. -Ambulate as able. Resuscitation Status: Patient has been in declining health for some time due to multisystem illnesses as outlined above. Code status changed to DNR per discussion with 10/06/16. Disposition: Functional status is very poor. 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 Patient does not wish to be transferred to a intermediate. Management has transitioned to palliative care with DO NOT RESUSCITATE status. Monitor condition over the next 24-48 hours. Consider transition to in-hospital hospice care. Consult Palliative Care. Vital Signs: Date Time Temp Pulse Resp B/P (MAP) Pulse Ox O2 Delivery O2 Flow Rate FiO2 10/11/16 09:28 Nasal Cannula 3.0 10/11/16 07:09 36.5 64 18 123/67 (85) 98 Nasal Cannula 3.0 10/11/16 00:30 Nasal Cannula 3.0 10/10/16 23:05 36.4 63 18 126/63 (84) 100 Nasal Cannula 2.0 10/10/16 20:00 Nasal Cannula 3.0 10/10/16 16:00 Nasal Cannula 2.0 10/10/16 15:33 36.7 65 24 132/64 (86) 99 Nasal Cannula 3.0 Lab Results: Results Past 24 Hours Test 10/10/16 16:25 10/10/16 20:47 10/11/16 05:48 10/11/16 07:57 Range/Units Bedside Glucose 227 209 215 70-90 mg/dl White Blood Count 14.00 4.8-10.8 K/uL Red Blood Count 3.69 4.2-5.4 M/uL Hemoglobin 9.8 12.0-16.0 g/dL Hematocrit 33.7 37-47 % Mean Corpuscular Volume 91.3 80-100 fL Mean Corpuscular Hemoglobin 26.6 25-34 pg Mean Corpuscular Hemoglobin Concent 29.1 32-36 g/dl Platelet Count 333 130-400 K/uL Mean Platelet Volume 10.2 7.4-10.4 fL Neutrophils (%) (Auto) 77.0 % Lymphocytes (%) (Auto) 10.4 % Monocytes (%) (Auto) 11.9 % Eosinophils (%) (Auto) 0.3 % Basophils (%) (Auto) 0.2 % Neutrophils # (Auto) 10.78 1.4-6.5 K/uL Lymphocytes # (Auto) 1.45 1.2-3.4 K/uL Monocytes # (Auto) 1.67 0.11-0.59 K/uL Eosinophils # (Auto) 0.04 0-0.5 K/uL Basophils # (Auto) 0.03 0-0.2 K/uL RDW Standard Deviation 78.7 36.4-46.3 fL RDW Coefficient of Variation 23.4 11.5-14.5 % Immature Granulocyte % (Auto) 0.2 % Immature Granulocyte # (Auto) 0.03 0.00-0.02 K/uL Polychromasia 1+ Basophilic Stippling 1+ Sodium Level 138 136-145 mmol/L Potassium Level 4.5 3.5-5.1 mmol/L Chloride Level 97 98-107 mmol/L Carbon Dioxide Level 42 21-32 mmol/L Anion Gap -1.0 3-11 mmol/L Blood Urea Nitrogen 55 7-18 mg/dl Creatinine 1.30 0.60-1.20 mg/dl Est Creatinine Clear Calc Drug Dose 41.4 ml/min Estimated GFR () 47.1 Estimated GFR (Non- 40.7 BUN/Creatinine Ratio 42.0 10-20 Random Glucose 212 70-99 mg/dl Calcium Level 9.2 8.5-10.1 mg/dl Total Bilirubin 0.8 0.2-1 mg/dl Aspartate Amino Transf (AST/SGOT) 41 15-37 U/L Alanine Aminotransferase (ALT/SGPT) 33 12-78 U/L Alkaline Phosphatase 140 45-117 U/L Ammonia 64.0 11-32 umol/L Total Protein 6.7 6.4-8.2 gm/dl Albumin 2.2 3.4-5.0 gm/dl Globulin 4.5 2.5-4.0 gm/dl Albumin/Globulin Ratio 0.5 0.9-2 Test 10/11/16 11:43 Range/Units Bedside Glucose 192 70-90 mg/dl
--- NOTE | 2016-10-11 13:13 | Palliative Care Consultation ---
Consultation Date of Consultation: Oct 11, 2016. Requesting Physician: Dr. Chun Attending Physician: Dr. Miller Reason for Consultation: Goals of care History of Present Illness This 75 year old female patient with a complicated and extensive medical history of GRAHAM with cirrhosis, diastolic CHF, chronic anemia, chronic GI bleed , CKD, COPD, and others listed below, presented to the ED 16 days ago with c/o increased SOB. She was just admitted to [facility] from 09/02-09/12 for respiratory failure and other problems, discharged to home with home health. She is cared for by her , who states that patient has had a significant decline recently and is now having difficulty caring for her at home. CXR on arrival showed congestion and cardiomegaly, hgb 7.4. Being treated for CHF, hepatic encephalopathy, respiratory failure, and chronic problems. Her urine has a multi -drug resistant strain of Klebsiella for which she is being treated with ertapenem-- infectious disease is following. Patient has become less responsive since admission, really is failing treatment at this point and not improving. She has not eaten anything substantial in days, she remains lethargic, unable to get OOB. There have been conversations held between patient, , and provider about transitioning to comfort measures only. Palliative care consulted to establish goals of care. I met with the patient in room 417. She is lethargic but awake. Knew she was in [facility] and recalled that she came in because she "couldn't breathe." Also had periods of confusion as she was talking about needing to close out an REA. She was remarkably still able to hold meaningful conversation with me and stated that she knows how sick she is, and really does not want to prolong her life any more. She is okay with continuing abx while here in the hospital, but really just wants to be comfortable and receive end-of-life care. She gave me permission to call and talk with her , which I did. Chris Coy, /POA , stated that the goal is purely for comfort at this point and to not have patient come back to the hospital for treatment. We discussed discharge planning and he would like patient to go to [facility] if she is going to be moved, and he would like hospice/end-of-life care only. Past Medical/Surgical History Medical History: Anemia- Fe deficiency, chronic GI blood loss Bladder cancer Cirrhosis of liver CKD (chronic kidney disease), stage III COPD (chronic obstructive pulmonary disease) Depression Diabetes mellitus type 2 Diastolic CHF Dyslipidemia GERD (gastroesophageal reflux disease) GI bleed History of adenomatous polyp of colon History of bladder cancer History of endometrial cancer Hypercapnia Hypothyroidism Iron deficiency anemia NSTEMI (non-ST elevated myocardial infarction) Permanent Comment: in the setting of acute illness, no EKG or echo findings of ACS Paroxysmal a-fib Portal hypertension Permanent Comment: esophageal varices Portal vein thrombosis Surgical History: H/O colonoscopy with polypectomy Permanent Comment: 09/2015- 2 polyps removed with clips placed, diverticulosis, medium sized lipoma in ascending colon, small AVMs in cecum H/O esophagogastroduodenoscopy Permanent Comment: 04/2015- scarring, grade I varices, duodenal polyps, portal hypertensive gastropathy Status post excision bladder tumor Permanent Comment: 2011 Status post hysterectomy Social History Smoking Status: Never Smoker History of Alcohol Use: No Marital Status: Housing Status: lives with significant other Occupation Status: retired Review of Systems Constitutional: + weakness, + fatigue Respiratory: + wheezing, + shortness of breath Cardiac: No chest pain, No edema Abdomen: No pain, No nausea, No vomiting Psychiatric: No anxiety Allergies Coded Allergies: Iron Dextran (Verified Allergy, Severe, IRON INFUSIONS - COULDN'T BREATH - THROAT CLOSING, 09/25/16) Dobutamine (Verified Allergy, Intermediate, DIFFICULTY SWALLOWING, 09/25/16 ) Medications Current Inpatient Medications Medications (Trade) Dose Ordered Sig/Virgil Route Start Time Stop Time Status Last Admin Dose Admin Aspirin (Ecotrin Tab) 81 mg MoWeFr@0900 PO 09/27/16 09:00 10/27/16 08:59 10/11/16 07:52 81 MG Latanoprost (Xalatan Oph Soln) 1 drops HS OPB 09/25/16 21:00 10/25/16 20:59 10/10/16 21:25 1 DROPS Levothyroxine Sodium (Synthroid Tab) 112 mcg DAILYBB PO 09/26/16 06:00 10/26/16 06:59 10/11/16 06:25 112 MCG Nadolol (Corgard Tab) 40 mg QAM PO 09/26/16 09:00 10/26/16 08:59 10/11/16 07:52 40 MG Pantoprazole Sodium (Protonix Tab) 40 mg BID PO 09/25/16 21:00 10/25/16 20:59 10/11/16 07:52 40 MG Rifaximin (Xifaxan Tab) 550 mg BID PO 09/25/16 21:00 10/25/16 20:59 10/11/16 07:52 550 MG Insulin Aspart (novoLOG ASPART) ACHS SC 09/25/16 21:00 10/25/16 20:59 10/11/16 12:18 1 UNITS Glucose (Glucose 40% Gel) 15-30 GRAMS 15 GRAMS... UD PRN PO 09/25/16 20:00 10/25/16 19:59 Glucose (Glucose Chew Tab) 4-8 Tablets 4 Tabl... UD PRN PO 09/25/16 20:00 10/25/16 19:59 Dextrose (Dextrose 50% 50ML Syringe) 25-50ML OF 50% DW IV FOR... UD PRN IV 09/25/16 20:00 10/25/16 19:59 Glucagon (Glucagon Inj) 1 mg UD PRN SQ 09/25/16 20:00 10/25/16 19:59 Albuterol/ Ipratropium (Duoneb) 3 ml Q2H PRN INH 09/26/16 07:00 10/26/16 06:59 10/01/16 22:37 3 ML Tramadol HCl (Ultram Tab) 25 mg Q6 PRN PO 09/26/16 11:15 10/26/16 11:14 10/11/16 03:14 25 MG Furosemide (Lasix Tab) 40 mg BID17 PO 09/29/16 20:00 10/29/16 19:59 Future Hold 10/01/16 17:22 40 MG Ondansetron HCl (Zofran Inj) 4 mg Q6H PRN IV 10/02/16 18:00 11/01/16 17:59 10/04/16 00:01 4 MG Ertapenem 1 gm/ Sodium Chloride 50 ml @ 120 mls/hr Q24H IV 10/06/16 12:00 10/16/16 11:59 10/11/16 12:11 120 MLS/HR Haloperidol Lactate (Haldol Inj) 0.5 mg Q1H PRN IM 10/08/16 09:15 11/07/16 08:14 Lactulose (Chronulac Syrup) 30 gm TID PO 10/08/16 20:00 11/07/16 19:59 10/11/16 07:51 30 GM Insulin Glargine (Lantus Solostar Pen) 30 units BID SC 10/08/16 20:00 10/25/16 20:59 10/11/16 07:55 30 UNITS Furosemide 80 mg/ Syringe 8 ml @ 4 mls/min DAILY IV 10/10/16 08:00 11/09/16 07:59 10/11/16 07:51 4 MLS/MIN Morphine Sulfate (MoRPHine SULFATE INJ) 1 mg Q1H PRN IV 10/10/16 07:00 10/24/16 06:59 Docusate Sodium (coLACE CAP) 100 mg BID PRN PO 10/11/16 20:00 10/25/16 20:59 UNV Physical Exam Date Time Temp Pulse Resp B/P (MAP) Pulse Ox O2 Delivery O2 Flow Rate FiO2 10/11/16 09:28 Nasal Cannula 3.0 10/11/16 07:09 36.5 64 18 123/67 (85) 98 Nasal Cannula 3.0 10/11/16 00:30 Nasal Cannula 3.0 10/10/16 23:05 36.4 63 18 126/63 (84) 100 Nasal Cannula 2.0 10/10/16 20:00 Nasal Cannula 3.0 10/10/16 16:00 Nasal Cannula 2.0 10/10/16 15:33 36.7 65 24 132/64 (86) 99 Nasal Cannula 3.0 General Appearance: no apparent distress, + pertinent finding (chronically ill appearing) ENT: hearing grossly normal Neck: supple, no JVD Respiratory: no respiratory distress, no accessory muscle use, + decreased breath sounds (air exchange extremely diminished), + crackles (bilateral bases) , + pertinent finding (moist throughout) Cardiovascular: regular rate, rhythm (distant heart sounds), + pertinent finding (weak pedal pulses) Abdomen: normal bowel sounds, non tender, soft Neurologic/Psychiatric: normal mood/affect, oriented x 3 (with periods of confusion), + pertinent finding (lethargic) Skin: + pallor Laboratory Results Last 24 Hours Test 10/10/16 16:25 10/10/16 20:47 10/11/16 05:48 10/11/16 07:57 Bedside Glucose 227 mg/dl 209 mg/dl 215 mg/dl White Blood Count 14.00 K/uL Red Blood Count 3.69 M/uL Hemoglobin 9.8 g/dL Hematocrit 33.7 % Mean Corpuscular Volume 91.3 fL Mean Corpuscular Hemoglobin 26.6 pg Mean Corpuscular Hemoglobin Concent 29.1 g/dl Platelet Count 333 K/uL Mean Platelet Volume 10.2 fL Neutrophils (%) (Auto) 77.0 % Lymphocytes (%) (Auto) 10.4 % Monocytes (%) (Auto) 11.9 % Eosinophils (%) (Auto) 0.3 % Basophils (%) (Auto) 0.2 % Neutrophils # (Auto) 10.78 K/uL Lymphocytes # (Auto) 1.45 K/uL Monocytes # (Auto) 1.67 K/uL Eosinophils # (Auto) 0.04 K/uL Basophils # (Auto) 0.03 K/uL RDW Standard Deviation 78.7 fL RDW Coefficient of Variation 23.4 % Immature Granulocyte % (Auto) 0.2 % Immature Granulocyte # (Auto) 0.03 K/uL Polychromasia 1+ Basophilic Stippling 1+ Sodium Level 138 mmol/L Potassium Level 4.5 mmol/L Chloride Level 97 mmol/L Carbon Dioxide Level 42 mmol/L Anion Gap -1.0 mmol/L Blood Urea Nitrogen 55 mg/dl Creatinine 1.30 mg/dl Est Creatinine Clear Calc Drug Dose 41.4 ml/min Estimated GFR () 47.1 Estimated GFR (Non- 40.7 BUN/Creatinine Ratio 42.0 Random Glucose 212 mg/dl Calcium Level 9.2 mg/dl Total Bilirubin 0.8 mg/dl Aspartate Amino Transf (AST/SGOT) 41 U/L Alanine Aminotransferase (ALT/SGPT) 33 U/L Alkaline Phosphatase 140 U/L Ammonia 64.0 umol/L Total Protein 6.7 gm/dl Albumin 2.2 gm/dl Globulin 4.5 gm/dl Albumin/Globulin Ratio 0.5 Test 10/11/16 11:43 Bedside Glucose 192 mg/dl Assessment & Plan Palliative Performance Scale: 20 % Problem list: SOB Lethargy/AMS/hepatic encephalopathy Ambulatory dysfunction Cirrhosis, GRAHAM CHF Anemia CKD Volume overload Hyperkalemia UTI Respiratory failure Paroxysmal afib Goals of care (Z51.5) Palliative care recommendations: -Patient confirmed she is DNR. -Goal is for comfort and hospice care, likely will transfer to SNF. already had acceptance to [facility] for the patient prior to her arrival to hospital. He is okay with referral to that facility. [facility] nursing home following. -Plan to continue IV abx while patient in hospital. Once she is discharged, they do not wish to continue abx. -Okay to continue her PO medications as long as she is able to take them. Once she is not taking PO, no plan for feeding tube for nutrition or medication administration. -Patient and both agree that if she does transfer out, she would not want to return to the hospital for treatment. -Patient sounded moist and wheezy today-- IVF were discontinued and lasix was given. Lasix will need to be converted to PO prior to discharge. -Would discontinue IV morphine and order Roxanol 5mg PO Q3h PRN pain/SOB. -Recommend scopolamine patch and atropine drops PRN for terminal secretions. -Consider adding dose of lorazepam, maybe 1mg SL Q6h, PRN agitation/anxiety. Thank you kindly for this consult. I will follow as needed.
--- NOTE | 2016-10-11 13:24 | DIAGNOSTIC IMAGING REPORT ---
CHEST ONE VIEW PORTABLE CLINICAL HISTORY: Congestive failure COMPARISON STUDY: 10/07/2016 FINDINGS: The heart remains enlarged. There is continued radiographic evidence of congestive failure. Small pleural effusions are suspected. There are persistent bibasal airspace opacities, likely atelectatic versus focal edema. There is a reverse left shoulder arthroplasty.[ IMPRESSION: No significant change from the prior study. Persistent cardiomegaly, congestive failure, and suspected bilateral pleural effusions. Electronically signed by: Barry Jim M.D. 10/11/2016 1:23 PM Dictated Date/Time: 10/11/2016 1:21 PM
[2016-10-11 15:33] VITALS: BP 122/65; PULSE 57; TEMP 36.4; O2SAT 100
[2016-10-11] MEDS ORDERED: DOCUSATE SODIUM 100 MG CAP PO PRN (20:00)
[2016-10-11] MEDS: LATANOPROST 0.005% OP SOLN 2.5 ML BTL OPB SCH (20:32)
[2016-10-12] VITALS: BP 133/72; PULSE 70; TEMP 36.5; O2SAT 97
[2016-10-12] MEDS: LEVOTHYROXINE 112 MCG TAB PO SCH (06:23)
[2016-10-12] MEDS: INSULIN ASPART 100 UNITS/ML 3 ML PEN SC SCH ×4 (06:30→21:00)
[2016-10-12 07:24] VITALS: BP 119/64; PULSE 73; TEMP 36.7; O2SAT 92
[2016-10-12 07:39] LABS: HEMATOCRIT 38.4 % (37-47); MEAN CORPUSCULAR HEMOGLOBIN 26.9 pg (25-34); MEAN CORPUSCULAR HGB CONC 28.9 g/dl (32-36); MEAN PLATELET VOLUME 10.6 fL (7.4-10.4); PLATELET COUNT 354 K/uL (130-400); RED BLOOD COUNT 4.13 M/uL (4.2-5.4); WHITE BLOOD COUNT 16.15 K/uL (4.8-10.8)
[2016-10-12 07:41] LABS: ANISOCYTOSIS PRESENT; BASO % 0.2 %; BASO ABS # 0.04 K/uL (0-0.2); COMPLETE YES; EOS % 0.4 %; IG% 0.3 %; LYMPH % 9.2 %; LYMPH ABS # 1.48 K/uL (1.2-3.4); NEUT % 78.9 %
[2016-10-12] MEDS ORDERED: PANTOprazole SOD 40 MG TAB PO SCH (08:00)
[2016-10-12] MEDS: LACTULOSE SYRUP 30 GM/45 ML UDP PO SCH ×4 (08:00→20:00)
[2016-10-12 08:03] LABS: BUN/CREATININE RATIO 31.9 (10-20); CALCIUM 9.8 mg/dl (8.5-10.1); CREATININE 1.6 mg/dl (0.60-1.20)
[2016-10-12] MEDS: NADOLOL 40 MG TAB PO SCH (08:29)
[2016-10-12] MEDS: FUROSEMIDE INJ 80 MG in SYRINGE 0 ML IV SCH (08:29)
[2016-10-12] MEDS: RIFAXIMIN TAB 550 MG TAB PO SCH ×2 (08:29→20:00)
[2016-10-12] MEDS: INSULIN GLARGINE SOLOSTAR 100 UNITS/ML 3 ML PEN SC SCH ×2 (08:36→20:00)
[2016-10-12] MEDS: ERTAPENEM IV 1 GM in SODIUM CHLOR 0.9% AD-VAN 50ML 50 ML IV SCH (12:00)
--- NOTE | 2016-10-12 13:17 | Palliative Care Progress Note ---
Palliative Care Progress Note Date of Service Oct 12, 2016. Subjective Pt evaluation today including: conversation w/ patient, conversation w/ family (, Shilo), physical exam, chart review, conversation w/ informatics consultant, review of inpatient medication list Pain: shook head no PO Intake: none Voiding: prieto catheter in place (dark luis urine, decreased ouptut) -Patient is less responsive today. She did open eyes and was using head nods for yes and no. -, Chris, is at bedside. -She denies pain or discomfort. Her respirations are slightly labored. - would like the patient to be comfort measures only- discontinuing antibiotics as well. He stated, "I know she's dying. She knows she's dying. I just don't want her to suffer any more." I asked the patient if she agreed, she nodded yes. Review of Systems unable to obtain due to mental status Objective Physical Exam General Appearance: no apparent distress, + pertinent finding (chronically ill- appearing, deconditioned) Neck: supple, no JVD Respiratory/Chest: + accessory muscle use, + rhonchi (moist throughout) Cardiovascular: regular rate, rhythm, + pertinent finding (pedals weak) Abdomen: non tender, soft Extremities: + pertinent finding (hands and feet are cold) Neurologic/Psychiatric: + pertinent finding (very lethargic, unable to answer questions) Skin: + pallor Laboratory Results Last 24 Hours Test 10/11/16 16:48 10/11/16 20:12 10/12/16 07:08 10/12/16 07:33 Bedside Glucose 181 mg/dl 226 mg/dl 165 mg/dl White Blood Count 16.15 K/uL Red Blood Count 4.13 M/uL Hemoglobin 11.1 g/dL Hematocrit 38.4 % Mean Corpuscular Volume 93.0 fL Mean Corpuscular Hemoglobin 26.9 pg Mean Corpuscular Hemoglobin Concent 28.9 g/dl Platelet Count 354 K/uL Mean Platelet Volume 10.6 fL Neutrophils (%) (Auto) 78.9 % Lymphocytes (%) (Auto) 9.2 % Monocytes (%) (Auto) 11.0 % Eosinophils (%) (Auto) 0.4 % Basophils (%) (Auto) 0.2 % Neutrophils # (Auto) 12.73 K/uL Lymphocytes # (Auto) 1.48 K/uL Monocytes # (Auto) 1.78 K/uL Eosinophils # (Auto) 0.07 K/uL Basophils # (Auto) 0.04 K/uL RDW Standard Deviation 79.0 fL RDW Coefficient of Variation 23.3 % Immature Granulocyte % (Auto) 0.3 % Immature Granulocyte # (Auto) 0.05 K/uL Anisocytosis PRESENT Sodium Level 139 mmol/L Potassium Level 5.0 mmol/L Chloride Level 96 mmol/L Carbon Dioxide Level 39 mmol/L Anion Gap 4.0 mmol/L Blood Urea Nitrogen 51 mg/dl Creatinine 1.60 mg/dl Est Creatinine Clear Calc Drug Dose 34.1 ml/min Estimated GFR () 36.7 Estimated GFR (Non- 31.6 BUN/Creatinine Ratio 31.9 Random Glucose 174 mg/dl Calcium Level 9.8 mg/dl Ammonia 58.0 umol/L Test 10/12/16 11:18 Bedside Glucose 214 mg/dl Assessment and Plan Problem list: SOB Lethargy/AMS/hepatic encephalopathy Ambulatory dysfunction Cirrhosis, GRAHAM CHF Anemia CKD Volume overload Hyperkalemia UTI Respiratory failure Paroxysmal afib Goals of care (Z51.5) Palliative care recommendations: -Per patient and 's wishes, comfort measures only. -They would like to discontinue antibiotics and PO medications unrelated to comfort. -I did not specifically address discontinuation of insulin and checking blood sugars, but I would wait until tomorrow to see if the patient is truly not going to wake and eat/drink. -Creatinine worsening (1.6 today), urine output decreasing, no longer taking much PO and no IVF. Would probably discontinue IV lasix at this point as well. -Would discontinue IV morphine and order Roxanol 5mg PO Q3h PRN pain/SOB. -Recommend scopolamine patch and atropine drops PRN for terminal secretions. -Consider adding dose of lorazepam, maybe 1mg SL Q6h, PRN agitation/anxiety. -Once IVs are discontinued, patient could possibly be ready for transfer to a facility. Palliative Performance Scale: 10 % Continued [facility] stay due to: multiple IV medications needed, home environment unsafe for pt Discharge planning: senior living facility
[2016-10-12 14:50] VITALS: BP 115/63; PULSE 67; TEMP 36.7; O2SAT 97
[2016-10-12] MEDS: TRAMADOL HCL 50 MG TAB PO PRN (15:09)
--- NOTE | 2016-10-12 17:13 | Progress Note ---
Internal Med Progress Note Date of Service: Oct 12, 2016. Provider Documentation: SUBJECTIVE: Patient is more lethargic and not awake today. Seems to be in some respiratory distress. Remains afebrile.No tremors noted. OBJECTIVE: Vital Signs-as noted below Examination: General- Awake & is lying in bed, In no apparent distress. Eyes- anicteric Neck- Supple, Midline trachea, Mild JVD Lungs- B/L Moderate air entry, bibasilar rales, few scattered rhonchi Heart- RRR Abdomen- + BS, soft, nontender Extremities- trace pretibial edema; chronic venous stasis changes Neuro- lethargic, opens eyes, nods head in response to questions Lab data as noted below. ASSESSMENT & PLAN: Altered Mental Status: Improving.Presented with worsening confusion, probably secondary to acute on chronic hepatic encephalopathy. US showed small amount of ascitic fluid- doubt SBP. -Continue lactulose as tolerated. - does not wish to have NGT placed for administration of meds. 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 Associated portal hypertension and hepatic encephalopathy. -Ultrasound of abdomen showed small volume ascites; doubt spontaneous bacterial peritonitis. -Spironolactone discontinued due to hyperkalemia. -Continue furosemide, lactulose, rifaximin. -Monitoring electrolytes History of Diastolic CHF: Chest x-ray on admission showed cardiomegaly and pulmonary vascular congestion. History of left ventricular diastolic heart failure based on previous echo. Acute on chronic left ventricular diastolic heart failure, possibly precipitated by worsening anemia. -No need to repeat echo at this time. -Spironolactone stopped due to hyperkalemia. -Chest x-ray 10/07 showed persistent pulmonary vascular congestion. -Continue IV furosemide. -D/C IVF -Repeat Chest X-Ray ordered. UTI : Rodas catheter placed at time of admission for accurate I/O's + comfort; discontinued 10/03. UA checked on 10/04 because of increasing confusion and demonstrated pyuria + bacteriuria. -Urine C&S obtained and patient was started on IV ceftriaxone. -Urine culture grew Klebsiella oxytoca, resistant to cephalosporins, gentamicin, tobramycin, TMP/sulfa. -ID consulted. & Now stopped IV ertapenem (Day # 7) as per 's request. Anemia: Stable. History of chronic iron deficiency anemia attributed to chronic GI blood loss from AVMs. Status post multiple endoscopic evaluations.Has required multiple transfusions. -Admission hemoglobin was 7.4.No gross GI bleeding. -Seems to do best maintaining hemoglobin greater than 8.5.Received 3 units pRBC's. -Following H/H. CKD Stage III: Serum creatinine on admission 1.9.Tends be volume sensitive.At risk for hepatorenal syndrome. -Titrate diuretics. Follow labs. -Avoid any nephrotoxin Hyperkalemia: Resolved now.Discontinued spironolactone.K 10/05 = 5.8. -Low K diet. -Received Kayexalate improvement. Diabetes Type II: Generally fairly well-controlled. -Recent A1c on 07/15/16 was 6.8. -Hypoglycemic in the ED, poor oral intake day of admission. -Titrate Lantus / NovoLog- Lantus dose decreased due to poor oral intake. History CAD: No anginal symptoms. -Continue low-dose aspirin every other day and nadolol. Paroxysmal A. Fib: Sinus bradycardia at the time of admission. -Continue nadolol. -No anticoagulants due to chronic GI blood loss and associated anemia. Chronic Hypoxic/ Hypercapnic Respiratory Failure: History of Sleep Sleep. -Does not tolerate CPAP or BiPAP. -Continue supplemental oxygen. GERD: Continue PPI. General Debilitation: Very poor functional status. -Received PT/OT as tolerated. VTE Prophylaxis: No anticoagulants due to chronic GI blood loss. -SCDs. -Ambulate as able. Resuscitation Status: Patient has been in declining health for some time due to multisystem illnesses as outlined above. Code status changed to DNR per discussion with 10/06/16. Disposition: Functional status is very poor. Comfort Care now. considered hospice care at home, but now realizes that he would be unable to be her sample sawyer 24 hours a day due to his own health problems. Patient does not wish to be transferred to a intermediate. Management has transitioned to palliative care with DO NOT RESUSCITATE status. Consider transition to in-hospital hospice care. Consult Palliative Care. Vital Signs: Date Time Temp Pulse Resp B/P (MAP) Pulse Ox O2 Delivery O2 Flow Rate FiO2 10/12/16 14:50 36.7 67 20 115/63 (80) 97 Nasal Cannula 3.0 10/12/16 08:00 Nasal Cannula 3.0 10/12/16 07:24 36.7 73 18 119/64 (82) 92 Nasal Cannula 3.0 10/12/16 00:00 36.5 70 18 133/72 (92) 97 3.0 10/12/16 00:00 Nasal Cannula 3.0 10/11/16 20:00 Nasal Cannula 3.0 Lab Results: Results Past 24 Hours Test 10/11/16 20:12 10/12/16 07:08 10/12/16 07:33 10/12/16 11:18 Range/Units Bedside Glucose 226 165 214 70-90 mg/dl White Blood Count 16.15 4.8-10.8 K/uL Red Blood Count 4.13 4.2-5.4 M/uL Hemoglobin 11.1 12.0-16.0 g/dL Hematocrit 38.4 37-47 % Mean Corpuscular Volume 93.0 80-100 fL Mean Corpuscular Hemoglobin 26.9 25-34 pg Mean Corpuscular Hemoglobin Concent 28.9 32-36 g/dl Platelet Count 354 130-400 K/uL Mean Platelet Volume 10.6 7.4-10.4 fL Neutrophils (%) (Auto) 78.9 % Lymphocytes (%) (Auto) 9.2 % Monocytes (%) (Auto) 11.0 % Eosinophils (%) (Auto) 0.4 % Basophils (%) (Auto) 0.2 % Neutrophils # (Auto) 12.73 1.4-6.5 K/uL Lymphocytes # (Auto) 1.48 1.2-3.4 K/uL Monocytes # (Auto) 1.78 0.11-0.59 K/uL Eosinophils # (Auto) 0.07 0-0.5 K/uL Basophils # (Auto) 0.04 0-0.2 K/uL RDW Standard Deviation 79.0 36.4-46.3 fL RDW Coefficient of Variation 23.3 11.5-14.5 % Immature Granulocyte % (Auto) 0.3 % Immature Granulocyte # (Auto) 0.05 0.00-0.02 K/uL Anisocytosis PRESENT Sodium Level 139 136-145 mmol/L Potassium Level 5.0 3.5-5.1 mmol/L Chloride Level 96 98-107 mmol/L Carbon Dioxide Level 39 21-32 mmol/L Anion Gap 4.0 3-11 mmol/L Blood Urea Nitrogen 51 7-18 mg/dl Creatinine 1.60 0.60-1.20 mg/dl Est Creatinine Clear Calc Drug Dose 34.1 ml/min Estimated GFR () 36.7 Estimated GFR (Non- 31.6 BUN/Creatinine Ratio 31.9 10-20 Random Glucose 174 70-99 mg/dl Calcium Level 9.8 8.5-10.1 mg/dl Ammonia 58.0 11-32 umol/L Test 10/12/16 16:32 Range/Units Bedside Glucose 151 70-90 mg/dl
[2016-10-12] MEDS: MoRPHine SULFATE 2 MG/ML CARP IV PRN ×2 (20:02→21:59)
[2016-10-12] MEDS: LATANOPROST 0.005% OP SOLN 2.5 ML BTL OPB SCH (21:00)
[2016-10-13] MEDS: MoRPHine SULFATE 2 MG/ML CARP IV PRN ×6 (00:11→20:42)
[2016-10-13] MEDS: LEVOTHYROXINE 112 MCG TAB PO SCH (06:30)
[2016-10-13] MEDS: FUROSEMIDE INJ 80 MG in SYRINGE 0 ML IV SCH (08:38)
[2016-10-13] MEDS: NADOLOL 40 MG TAB PO SCH (08:39)
[2016-10-13] MEDS: LACTULOSE SYRUP 30 GM/45 ML UDP PO SCH ×3 (08:39→20:00)
--- NOTE | 2016-10-13 15:49 | Progress Note ---
Internal Med Progress Note Date of Service: Oct 13, 2016. Provider Documentation: SUBJECTIVE: Patient is more awake today. Seems to be in some respiratory distress. Remains afebrile.No tremors noted.Answers simple questions. OBJECTIVE: Vital Signs-as noted below Examination: General- Awake & is lying in bed, In no apparent distress. Eyes- anicteric Neck- Supple, Midline trachea, Mild JVD Lungs- B/L Moderate air entry, bibasilar rales, few scattered rhonchi Heart- RRR Abdomen- + BS, soft, nontender Extremities- trace pretibial edema; chronic venous stasis changes Neuro- lethargic, opens eyes, nods head in response to questions Lab data as noted below. ASSESSMENT & PLAN: Altered Mental Status: Improving.Presented with worsening confusion, probably secondary to acute on chronic hepatic encephalopathy. US showed small amount of ascitic fluid- doubt SBP. -Continue lactulose as tolerated. - does not wish to have NGT placed for administration of meds. 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 Associated portal hypertension and hepatic encephalopathy. -Ultrasound of abdomen showed small volume ascites; doubt spontaneous bacterial peritonitis. -Spironolactone discontinued due to hyperkalemia. -Continue furosemide, lactulose, rifaximin. -Monitoring electrolytes History of Diastolic CHF: Chest x-ray on admission showed cardiomegaly and pulmonary vascular congestion. History of left ventricular diastolic heart failure based on previous echo. Acute on chronic left ventricular diastolic heart failure, possibly precipitated by worsening anemia. -No need to repeat echo at this time. -Spironolactone stopped due to hyperkalemia. -Chest x-ray 10/07 showed persistent pulmonary vascular congestion. -Continue IV furosemide. -D/C IVF -Repeat Chest X-Ray ordered. UTI : Rodas catheter placed at time of admission for accurate I/O's + comfort; discontinued 10/03. UA checked on 10/04 because of increasing confusion and demonstrated pyuria + bacteriuria. -Urine C&S obtained and patient was started on IV ceftriaxone. -Urine culture grew Klebsiella oxytoca, resistant to cephalosporins, gentamicin, tobramycin, TMP/sulfa. -ID consulted. & Now stopped IV ertapenem (Day # 7) as per 's request. Anemia: Stable. History of chronic iron deficiency anemia attributed to chronic GI blood loss from AVMs. Status post multiple endoscopic evaluations.Has required multiple transfusions. -Admission hemoglobin was 7.4.No gross GI bleeding. -Seems to do best maintaining hemoglobin greater than 8.5.Received 3 units pRBC's. -Following H/H. CKD Stage III: Serum creatinine on admission 1.9.Tends be volume sensitive.At risk for hepatorenal syndrome. -Titrate diuretics. Follow labs. -Avoid any nephrotoxin Hyperkalemia: Resolved now.Discontinued spironolactone.K 10/05 = 5.8. -Low K diet. -Received Kayexalate improvement. Diabetes Type II: Generally fairly well-controlled. -Recent A1c on 07/15/16 was 6.8. -Hypoglycemic in the ED, poor oral intake day of admission. -Titrate Lantus / NovoLog- Lantus dose decreased due to poor oral intake. History CAD: No anginal symptoms. -Continue low-dose aspirin every other day and nadolol. Paroxysmal A. Fib: Sinus bradycardia at the time of admission. -Continue nadolol. -No anticoagulants due to chronic GI blood loss and associated anemia. Chronic Hypoxic/ Hypercapnic Respiratory Failure: History of Sleep Sleep. -Does not tolerate CPAP or BiPAP. -Continue supplemental oxygen. GERD: Continue PPI. General Debilitation: Very poor functional status. -Received PT/OT as tolerated. VTE Prophylaxis: No anticoagulants due to chronic GI blood loss. -SCDs. -Ambulate as able. Resuscitation Status: Patient has been in declining health for some time due to multisystem illnesses as outlined above. Code status changed to DNR per discussion with 10/06/16. Disposition: Functional status is very poor. Comfort Care now. considered hospice care at home, but now realizes that he would be unable to be her ripening room hand 24 hours a day due to his own health problems. Patient does not wish to be transferred to a correction. Management has transitioned to palliative care with DO NOT RESUSCITATE status. Consider transition to in-hospital hospice care. Consult Palliative Care. Vital Signs: Date Time Temp Pulse Resp B/P (MAP) Pulse Ox O2 Delivery O2 Flow Rate FiO2 10/13/16 08:30 Nasal Cannula 3.0 10/13/16 00:00 Nasal Cannula 3.0 10/12/16 16:00 Nasal Cannula 3.0 Lab Results: Results Past 24 Hours Test 10/12/16 16:32 10/12/16 20:15 Range/Units Bedside Glucose 151 119 70-90 mg/dl
[2016-10-13] MEDS: LATANOPROST 0.005% OP SOLN 2.5 ML BTL OPB SCH (20:42)
--- NOTE | 2016-10-14 15:49 | Discharge Summary ---
Discharge Summary Date of Service Oct 14, 2016. Discharge Summary Admission Date: Sep 25, 2016 at 16:47 Discharge Disposition: Principal Diagnosis: Altered mental status UTI Secondary Diagnoses/Problems: Liver Cirrhosis/Portal Hypertension Diastolic CHF Anemia CKD Stage III Diabetes Chronic Respiratory failure Anemia CAD Atrial Fibrillation Procedures: Multiple Chest X-rays Vaccinations: NONE Consultations: Infectious Disease Cardiology Pending Studies/Follow-Up: Patient . Admission Information HPI (per Admitting provider): 75-year-old female followed by Dr. Yann Gutierrez. History of diastolic CHF, cirrhosis of liver attributed to GRAHAM, chronic anemia attributed to chronic GI blood loss, and other problems noted below. Recently hospitalized at [facility] on 09/02/16 with acute on chronic respiratory failure and other problems. She was discharged to home on 09/12/16 with home health services. Seen in clinic by Family Medicine and GI and was doing fairly well. Over the past 2 days she has been experiencing increasing dyspnea. No fever or cough. She does not check her weight daily, but is not aware that she has been gaining weight. No change in usual dependent edema. No emesis, melena, hematochezia. She also also felt very weak, needing increasing assistance for ambulation. No falls. notes increasing confusion. . Physical Exam (per Admitting): General Appearance: + mild distress, + obese Head: normocephalic, atraumatic Eyes: PERRL, EOMI, sclerae normal, + pertinent finding (conjunctivae pale) ENT: pharynx normal, + pertinent finding (upper dentures) Neck: supple, no adenopathy, thyroid normal, trachea midline Respiratory/Chest: no respiratory distress, no accessory muscle use, + rales (bibasilar) Cardiovascular: regular rate, rhythm, + systolic murmur (3/6 systolic murmur at base), + pertinent finding (+ JVD; 1+ pretibial edema; pedal pulses diminished; capillary refill toes 12 seconds) Abdomen/GI: normal bowel sounds, non tender, soft, no organomegaly ( nonpalpable), no pulsatile mass Extremities/Musculoskelatal: no calf tenderness Neurologic/Psych: transfer man II-XII nml as tested (PERRL, EOMI; no facial palsy; mild dysarthria), + abnormal reflexes (patellar reflexes hyporeflexic), + pertinent finding (; + asterixis) Skin: warm/dry, + pertinent finding (multiple ecchymoses; chronic venous stasis changes lower extremities) Lymphatic: no adenopathy (cervical) Hospital Course Altered Mental Status: Improving.Presented with worsening confusion, probably secondary to acute on chronic hepatic encephalopathy. US showed small amount of ascitic fluid- doubt SBP. -Continue lactulose as tolerated. - does not wish to have NGT placed for administration of meds. 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 Associated portal hypertension and hepatic encephalopathy. -Ultrasound of abdomen showed small volume ascites; doubt spontaneous bacterial peritonitis. -Spironolactone discontinued due to hyperkalemia. -Continue furosemide, lactulose, rifaximin. -Monitoring electrolytes History of Diastolic CHF: Chest x-ray on admission showed cardiomegaly and pulmonary vascular congestion. History of left ventricular diastolic heart failure based on previous echo. Acute on chronic left ventricular diastolic heart failure, possibly precipitated by worsening anemia. -No need to repeat echo at this time. -Spironolactone stopped due to hyperkalemia. -Chest x-ray 10/07 showed persistent pulmonary vascular congestion. -Continue IV furosemide. -D/C IVF -Repeat Chest X-Ray ordered. UTI : Rodas catheter placed at time of admission for accurate I/O's + comfort; discontinued 10/03. UA checked on 10/04 because of increasing confusion and demonstrated pyuria + bacteriuria. -Urine C&S obtained and patient was started on IV ceftriaxone. -Urine culture grew Klebsiella oxytoca, resistant to cephalosporins, gentamicin, tobramycin, TMP/sulfa. -ID consulted. & Now stopped IV ertapenem (Day # 7) as per 's request. Anemia: Stable. History of chronic iron deficiency anemia attributed to chronic GI blood loss from AVMs. Status post multiple endoscopic evaluations.Has required multiple transfusions. -Admission hemoglobin was 7.4.No gross GI bleeding. -Seems to do best maintaining hemoglobin greater than 8.5.Received 3 units pRBC's. -Following H/H. CKD Stage III: Serum creatinine on admission 1.9.Tends be volume sensitive.At risk for hepatorenal syndrome. -Titrate diuretics. Follow labs. -Avoid any nephrotoxin Hyperkalemia: Resolved now.Discontinued spironolactone.K 10/05 = 5.8. -Low K diet. -Received Kayexalate improvement. Diabetes Type II: Generally fairly well-controlled. -Recent A1c on 07/15/16 was 6.8. -Hypoglycemic in the ED, poor oral intake day of admission. -Titrate Lantus / NovoLog- Lantus dose decreased due to poor oral intake. History CAD: No anginal symptoms. -Continue low-dose aspirin every other day and nadolol. Paroxysmal A. Fib: Sinus bradycardia at the time of admission. -Continue nadolol. -No anticoagulants due to chronic GI blood loss and associated anemia. Chronic Hypoxic/ Hypercapnic Respiratory Failure: History of Sleep Sleep. -Does not tolerate CPAP or BiPAP. -Continue supplemental oxygen. GERD: Continue PPI. General Debilitation: Very poor functional status. -Received PT/OT as tolerated. VTE Prophylaxis: No anticoagulants due to chronic GI blood loss. -SCDs. -Ambulate as able. Resuscitation Status: Patient has been in declining health for some time due to multisystem illnesses as outlined above. Code status changed to DNR per discussion with 10/06/16. Disposition: Functional status is very poor. Comfort Care now. considered hospice care at home, but now realizes that he would be unable to be her insole filler 24 hours a day due to his own health problems. Patient does not wish to be transferred to a care home. Management has transitioned to palliative care with DO NOT RESUSCITATE status. Consider transition to in-hospital hospice care. Consult Palliative Care. Total time spent on discharge = 35 minutes This includes examination of the patient, discharge planning, medication reconciliation, and communication with other providers. Discharge Instructions Patient Additional Copies To Yann Gutierrez D.O.
== END 2016-10-13 23:55 | disposition expired | DRG 291 ==
LOC: C.EDC 11:14 → EDBD 11:14 → UNDOADMIN 16:47 → C.2E 16:47 → ENRESERV 17:23 → C.2E 09-28 10:48 → C.4E 09-28 10:48 → UNDODISIN 10-14 02:18
PROVIDERS: ADMIT Hospitalist; ATTEND Emergency Medicine
DX: I50.33 Acute on chronic diastolic (congestive) heart failure (principal); K72.00 Acute and subacute hepatic failure without coma; I81 Portal vein thrombosis; N39.0 Urinary tract infection, site not specified; K76.6 Portal hypertension; J96.12 Chronic respiratory failure with hypercapnia; J96.11 Chronic respiratory failure with hypoxia; R18.8 Other ascites; Z51.5 Encounter for palliative care; J44.9 Chronic obstructive pulmonary disease, unspecified; K72.10 Chronic hepatic failure without coma; Q27.33 Arteriovenous malformation of digestive system vessel; N18.3 Chronic kidney disease, stage 3 (moderate); F32.9 Major depressive disorder, single episode, unspecified; E11.9 Type 2 diabetes mellitus without complications; E78.5 Hyperlipidemia, unspecified; K21.9 Gastro-esophageal reflux disease without esophagitis; I25.2 Old myocardial infarction; E03.9 Hypothyroidism, unspecified; K76.0 Fatty (change of) liver, not elsewhere classified; D50.0 Iron deficiency anemia secondary to blood loss (chronic); I48.0 Paroxysmal atrial fibrillation; Z79.82 Long term (current) use of aspirin; E87.5 Hyperkalemia; B96.1 Klebsiella pneumoniae [K. pneumoniae] as the cause of diseases classified elsewhere; N32.89 Other specified disorders of bladder